=== PATIENT | female | born 1960 | race Caucasian/White ===

== ENCOUNTER 2017-07-02 12:25 | Inpatient (IN) | payer MEDICARE, MEDICAID, SELFPAY ==
[2017-07-02] VITALS (7 sets, daily range): BP systolic 153–182; BP diastolic 64–106; PULSE 99–136; RESP 17–22; TEMP 36.7–36.9; O2SAT 96–98; BMI 37.9; BMI 33.6
--- NOTE | 2017-07-02 12:42 | EKG12_ITS ---
Test Reason : CONFUSION Blood Pressure : / mmHG Vent. Rate : 124 BPM Atrial Rate : 125 BPM P-R Int : 104 ms QRS Dur : 086 ms QT Int : 422 ms P-R-T Axes : 025 -10 102 degrees QTc Int : 606 ms Sinus tachycardia with short [place] ST & T wave abnormality, consider lateral ischemia Abnormal ECG Confirmed by SAMMI GAY, JACQUES ([id number]), editor magazine IRIS TAYLOR ([id number]) on 07/05/2017 10:39:13 AM Referred By: Leonidas Guaman Confirmed By:JACQUES CHAPA MD
[2017-07-02 13:40] LABS: ALB/GLOB Ratio 0.4 RATIO (0.9-2.4); AST(SGOT) 157 U/L (15-37); Alanine Aminotransfer ALT/SGPT 63 U/L (12-78); Albumin, Serum 2.2 g/dL (3.4-5.0); Alkaline Phosphatase 164 U/L (45-117); Anion Gap 10 (5-15); BUN 15 mg/dL (7-18); BUN/Creat Ratio 12.7 RATIO (10-20); Calcium,Total 7.9 mg/dL (8.5-10.1); Chloride 115 mmol/L (98-107); Creatinine, Serum 1.18 mg/dL (0.55-1.02); EST Glomerular Filtration Rate 50 mL/min (>60); Est Glom Filt Rate - Afr Amer 60 mL/min (>60); Estimated Creatinine Clearance 42.46 ml/min; Globulin 5.2 g/dL (2.2-4.2); Glucose 99 mg/dL (70-110); Potassium 4.2 mmol/L (3.5-5.1); Protein, Total 7.4 g/dL (6.4-8.2); Sodium Level 145 mmol/L (136-145)
[2017-07-02] MEDS: Lactulose 20 GM/30 ML UDC 30 GM PO ×3 (14:04→21:59)
[2017-07-02 14:05] LABS: Absolute Lymphocyte Count 0.34 X10^3/ul (0.83-4.51); Absolute Neutrophil Count 2.4 X10^3/uL (2.0-7.7); Basophil# 0.01 X10^3/uL; Basophil% 0.3 % (0-1); Eosinophil# 0.03 X10^3/uL; Hematocrit 31.3 % (37-47); Hemoglobin 10.3 g/dl (12.0-15.0); Lymphocyte # 0.34 X10^3/ul (4.0); Lymphocyte % 11.7 % (19-41); Mean Corp Hgb Conc 32.9 g/gl (32-36); Mean Corpuscular Hgb 30.1 pg (27.0-32.0); Mean Corpuscular Volume 91.5 fL (81-99); Monocyte# 0.16 X10^3/uL; Monocyte% 5.5 % (0-10); Neutrophil # 2.36 X10^3/uL (2.7-7.7); Neutrophil % 81.5 % (47-70); RBC Distribution Width CV 15.8 % (11.6-14.6); RBC Distribution Width SD 52.8 fl (35.1-43.9); Red Blood Count 3.42 M/mm3 (4.2-5.4); White Blood Count 2.9 K/mm3 (4.4-11.0)
[2017-07-02] MEDS: 0.9% Normal Saline 1,000 ML 150 ML IV (14:05)
[2017-07-02 14:06] LABS: Differential Indicated SCAN CRITERIA MET; POSITIVE COUNT YES; POSITIVE DIFFERENTIAL YES; POSITIVE MORPHOLOGY NO
[2017-07-02 14:07] LABS: Platelet Count 40 K/mm3 (150-450)
[2017-07-02 14:17] LABS: Differential Comment SCANNED; Platelet Estimate MOD DEC (ADEQ)
[2017-07-02] MEDS: Ondansetron 4 MG/2 ML Vial IV (14:22)
--- NOTE | 2017-07-02 15:12 | ED.VISSUMM ---
- ER Visit Summary Date of Service: 07/02/17 Chief Complaint: [Confusion] History of Present Illness: The patient is a 57 F [presents to the emergency department with her daughter with complaint of increased confusion this morning. Patient has a history of autoimmune hepatitis and cirrhosis of the liver with history of hepatic encephalopathy. Patient has been taking her medications regularly. Patient has been seen in this ER multiple times for similar complaint with hepatic encephalopathy. Patient has not had a fever or recent illness. Patient denies any abdominal pain. Patient denies headache or chest pain.] Physical Examination: [HEENT-PERRLA, EOMI. Cranial nerves II through XII grossly intact. TMs clear. Mucous membranes moist. No adenopathy. Cardiovascular-regular rate and rhythm without murmur or ectopy Lungs-clear to auscultation, chest wall stable without crepitus or subcu emphysema Abdomen-normoactive bowel sounds, soft, nontender, no rebound or rigidity, no peritoneal signs. Extremities-intact ?4, normal range of motion, normal pulses, atraumatic] Test Results: [CBC with differential showed a pancytopenia with a white blood cell count of 2.9, hemoglobin 10, hematocrit 31, platelet is 40. Chemistries were unremarkable. Ammonia was 131. Troponin was less than 0.02. LFTs unremarkable.] Emergency Department Course and Treatment: [Patient received lactulose 30 g p.o. An IV line was established with normal saline at 125 cc an hour.] Treatment Plan: Plan will be to admit patient [] Disposition: [Admit] Impression: [Hepatic encephalopathy] This note was generated with [employer] dictation software. It may contain incorrect words, spelling, and punctuation that were not noted in review of the chart prior to signing ED Disposition - Plan for ED Patient: Chief Complaint: Confusion Referrals: Ayesha Vieyra MD [Primary Care Provider] -
--- NOTE | 2017-07-02 15:44 | PCM.HP.STD ---
Problem List (1) Hepatic encephalopathy Status: Acute (2) HLD (hyperlipidemia) Status: Chronic (3) HTN (hypertension) Status: Chronic (4) CKD (chronic kidney disease) stage 3, GFR 30-59 ml/min Status: Chronic (5) Asthma Status: Chronic (6) Cirrhosis of liver Status: Chronic Qualifiers: Comment: due to autoimmune hepatitis Portal hypertension status post TIPS procedure Ascites, paracentesis twice a week Pancytopenia Hepatic encephalopathy mild coagulopathy (7) Immunocompromised patient Status: Chronic Comment: on steroids for autoimmune hepatitis (8) Pancytopenia Status: Chronic (9) S/P TIPS (transjugular intrahepatic portosystemic shunt) Status: Chronic (10) Anemia Status: Chronic Qualifiers: (11) CKD (chronic kidney disease) stage 3, GFR 30-59 ml/min Status: Chronic Comment: stg 2-3 (12) Autoimmune hepatitis Status: Chronic History of Present Illness Date of Admission: 07/02/17 Chief Complaint: confusion The patient is a 57 year old F with history of autoimmune hepatitis, status post TIPS procedure, multiple admissions for hepatic encephalopathy, cirrhosis, pancytopenia, hyperlipidemia, hypertension, asthma, CKD 3 who presented to the emergency room with worsening of confusion at home today. She lives with her daughter who is her primary caregiver. Daughter reported that yesterday she was behaving normally, not confused at all, fully independent on her own. This morning at about 630 she seemed more confused and like her encephalopathy was worsening. She refused to take her lactulose today. Since her last admission in May 2017 for the same, she has been having intermittent confused episodes at home. When this happens her daughter gives her an extra dose of lactulose and they resolve on their own. Per her sap bw consultant the goal is 4-5 loose bowel movements per day, lately she has been having about 2 well-formed bowel movements per day. During the interview the patient was shaking uncontrollably, had her eyes closed refused to open them, only answering no to questions. She did respond yes when asked if she was cold. She denies any headache, dizziness, chest pain, racing, shortness of breath, cough, abdominal pain. She was incontinent of loose stool twice in the ER already after receiving a dose of lactulose at her daughter was able to give her. On reexamining later she was more alert sitting up with her eyes open and speaking to her daughter. [] Past Medical History Past Medical History (Chronic Problems): Chronic Problems HLD (hyperlipidemia) (Chronic) HTN (hypertension) (Chronic) CKD (chronic kidney disease) stage 3, GFR 30-59 ml/min (Chronic) Asthma (Chronic) 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 Portal hypertension status post TIPS procedure Ascites, paracentesis twice a week Pancytopenia Hepatic encephalopathy mild coagulopathy Immunocompromised patient (Chronic) on steroids for autoimmune hepatitis Pancytopenia (Chronic) 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) Anemia (Chronic) CKD (chronic kidney disease) stage 3, GFR 30-59 ml/min (Chronic) stg 2-3 Steroid dependence (Chronic) Current dose 10 mg prednisone daily, on long-term weaning Autoimmune hepatitis (Chronic) Diarrhea (Chronic) lactulose dependent Allergies amoxicillin Allergy (Verified 07/02/17 12:33) Hives Fish Containing Products Allergy (Verified 07/02/17 12:33) Rash Iodinated Contrast- Oral and IV Dye [Iodinated Contrast Media - IV Dye] Allergy (Verified 07/02/17 12:33) Rash Penicillins [PCN] Allergy (Verified 07/02/17 12:33) Hives Home Medications: Ambulatory Orders Medication Instructions Recorded Albuterol Inhaler [Ventolin Hfa] 2 puff INHALATION Q6H PRN PRN 06/21/16 Atorvastatin Calcium [Lipitor] 40 mg PO QHS 06/21/16 Azathioprine [Imuran] 50 mg PO DAILY@0800 06/21/16 Calcium Carb/Vitamin D3/Vit K1 1 each PO DAILY 06/21/16 [Citracal Soft Chew] Cholecalciferol (Vitamin D3) 50,000 unit PO DAILY 06/21/16 [Vitamin D3] Cyanocobalamin (Vitamin B-12) 50,000 mcg PO QWEEK 06/21/16 [Vitamin B-12] Ferrous Sulfate 325 mg PO DAILY@0800 06/21/16 Lactulose [Chronulac] 60 ml PO BID 06/21/16 Metoprolol Tartrate [Lopressor 25 mg PO BID 06/21/16 (beta harshil)] Ondansetron [Zofran Odt] 8 mg PO Q8H PRN PRN 06/21/16 Pantoprazole Sodium [Protonix] 40 mg PO DAILY 06/21/16 Rifaximin [Xifaxan] 550 mg PO BID 06/21/16 Sodium Bicarbonate 1,300 mg PO BID 06/21/16 Spironolactone [Aldactone] 100 mg PO DAILY 06/21/16 Zinc 50 mg PO DAILY 06/21/16 Melatonin 3 mg PO QHS 09/04/16 Furosemide [Lasix] 40 mg PO DAILY 11/02/16 TraMADol [Ultram] 50 mg PO BID PRN PRN 02/14/17 Surgical History: tonsillectomy, - - TIPS. Psychiatric History: No pertinent psych hx CRUSHER TENDER History: No pertinent CRUSHER TENDER history Lives: With Family Smoking Status: Never smoker Tobacco Use: Non-smoker Alcohol: None Drugs: None - *Family History Maternal History Items: No pertinent history, - - unable to obtain as patient is confused. Paternal History Items: No pertinent history, - - unable to obtain as patient is confused. Review of Systems Constitutional: Reports: Chills, - - All over shaking. Denies: Fever, Weight Change HEENT: Denies: Head Aches, Sinus Congestion, Sinus Drainage Cardiovascular: Denies: Chest Pain, Palpitations Respiratory: Denies: Cough, Shortness of breath at rest, Sputum production Gastrointestinal: Denies: Abdominal Pain, Nausea, Vomiting Genitourinary: Denies: Dysuria Musculoskeletal: Denies: Joint Pain, Joint Tenderness Skin: Denies: Rash, Wounds Neurological: Reports: Confusion. Denies: Focal weakness, Numbness, Tingling Psychiatric: Denies: Anxiety, Depression, Homicidal Ideations, Suicidal Ideations Hematologic/ Lymphatic: Denies: Easy Bruising, Easy Bleeding VTE Information - Inpt Only VTE Present on Admission: No VTE Mechan Device Prophylaxis: SCD's VTE Pharm Prophylaxis ordered?: No Reason prophylaxis not ordered:: Medical Contraindication - Physical Exam General: Alert, Oriented x3, Cooperative, - - Refuses to open eyes, turns away when an attempt to open her eyes. HEENT: Atraumatic, PERRLA, EOMI, Normocephalic Neck: Supple, No JVD, Negative Carotid Bruits Lungs: Clear to auscultation, Normal air movement Cardiovascular: Regular rate, Murmur - 3 out of 6 systolic murmur best heard over the left sternal border, Tachycardic Abdomen: Bowel Sounds Present, Soft, Non Tender Extremities: No edema, Capillary Refill Less than 3 Seconds Skin: No rashes, No breakdown Musculoskeletal: No Tenderness to Palpation of Joints or Extremities Neurological: Cranial nerves II-XII grossly intact Psych/Mental Status: Normal Affect, Appropriate, Alert and oriented to time, place, person, mood and affect Vital Signs Temp Pulse Resp BP Pulse Ox 98.4 F 119 H 17 157/67 H 97 07/02/17 12:31 07/02/17 15:34 07/02/17 15:34 07/02/17 15:34 07/02/17 15:34 Oxygen Delivery Method Room Air Weight: 97.2 kg Body Mass Index (BMI) 37.9 Finger Stick Blood Glucose 108 Laboratory Tests Past 24 Hrs 07/02/17 07/02/17 07/02/17 13:10 13:10 13:10 WBC Cancelled Corrected WBC Cancelled RBC Cancelled Hgb Cancelled Hct Cancelled MCV Cancelled MCH Cancelled MCHC Cancelled RDW Cancelled RDW Differential Cancelled Plt Count Cancelled MPV Cancelled Immature Gran % (Auto) Cancelled Neut % (Auto) Cancelled Lymph % (Auto) Cancelled [place] % (Auto) Cancelled Eos % (Auto) Cancelled Baso % (Auto) Cancelled Absolute Neuts (auto) Cancelled Absolute Lymphs (auto) Cancelled Total Counted Cancelled Neutrophils % (Manual) Cancelled Band Neutrophils % Cancelled Lymphocytes % (Manual) Cancelled Monocytes % (Manual) Cancelled Eosinophils % (Manual) Cancelled Basophils % (Manual) Cancelled Metamyelocytes % Cancelled Myelocytes % Cancelled Promyelocytes % Cancelled Blast Cells % Cancelled Plasma Cell % (Manual) Cancelled Other Cells % Cancelled Nucleated RBCs/100 WBC Cancelled Differential Comment Cancelled Diff Path Review Cancelled Hypersegmented Neuts Cancelled Atypical Lymphocytes Cancelled Reactive Lymphocytes Cancelled Smudge Cells Cancelled Toxic Granulation Cancelled Dohle Bodies Cancelled Evelyn Rods Cancelled Platelet Estimate Cancelled Plt Morphology Comment Cancelled RBC Morphology Cancelled Polychromasia Cancelled Hypochromasia Cancelled Poikilocytosis Cancelled Basophilic Stippling Cancelled Anisocytosis Cancelled Microcytosis Cancelled Macrocytosis Cancelled Spherocytes Cancelled Sickle Cells Cancelled Target Cells Cancelled Tear Drop Cells Cancelled Ovalocytes Cancelled Stomatocytes Cancelled [place] Bodies Cancelled [place] Cells Cancelled Bite Cells Cancelled Acanthocytes (Spur) Cancelled Rouleaux Cancelled Schistocytes Cancelled Sodium 145 Potassium 4.2 Chloride 115 H Carbon Dioxide 20.0 L Anion Gap 10 BUN 15 Creatinine 1.18 H Estim Creat Clear Calc 42.46 Est GFR (MDRD) Af Amer 60 Est GFR (MDRD) Non-Af 50 L BUN/Creatinine Ratio 12.7 Glucose 99 Calcium 7.9 L Total Bilirubin 2.90 H AST 157 H ALT 63 Alkaline Phosphatase 164 H Ammonia 131.0 H Troponin I < 0.02 Total Protein 7.4 Albumin 2.2 L Globulin 5.2 H Albumin/Globulin Ratio 0.4 L 07/02/17 13:55 WBC 2.9 L Corrected WBC RBC 3.42 L Hgb 10.3 L Hct 31.3 L MCV 91.5 MCH 30.1 MCHC 32.9 RDW 15.8 H RDW Differential 52.8 H Plt Count 40 L* MPV 9.0 Immature Gran % (Auto) 0.000 Neut % (Auto) 81.5 H Lymph % (Auto) 11.7 L [place] % (Auto) 5.5 Eos % (Auto) 1.0 Baso % (Auto) 0.3 Absolute Neuts (auto) 2.4 Absolute Lymphs (auto) 0.34 L Total Counted Not Reportable Neutrophils % (Manual) Band Neutrophils % Lymphocytes % (Manual) Monocytes % (Manual) Eosinophils % (Manual) Basophils % (Manual) Metamyelocytes % Myelocytes % Promyelocytes % Blast Cells % Plasma Cell % (Manual) Other Cells % Nucleated RBCs/100 WBC Differential Comment SCANNED Diff Path Review May foll Hypersegmented Neuts Atypical Lymphocytes Reactive Lymphocytes Smudge Cells Toxic Granulation Dohle Bodies Evelyn Rods Platelet Estimate MOD DEC Plt Morphology Comment RBC Morphology Polychromasia Hypochromasia Poikilocytosis Basophilic Stippling Anisocytosis Microcytosis Macrocytosis Spherocytes Sickle Cells Target Cells Tear Drop Cells Ovalocytes Stomatocytes [place] Bodies Kenny Cells Bite Cells Acanthocytes (Spur) Rouleaux Schistocytes Sodium Potassium Chloride Carbon Dioxide Anion Gap BUN Creatinine Estim Creat Clear Calc Est GFR (MDRD) Af Amer Est GFR (MDRD) Non-Af BUN/Creatinine Ratio Glucose Calcium Total Bilirubin AST ALT Alkaline Phosphatase Ammonia Troponin I Total Protein Albumin Globulin Albumin/Globulin Ratio Assessment/Plan 1. Acute recurrent hepatic encephalopathy secondary to autoimmune hepatitis and cirrhosis-ammonia 131-at last discharge just over 1 month ago for the same it was 44. Multiple admissions for the same. Patient had refused to take lactulose today however was able to leave convince to take it in the ER and is now moving her bowels and appears to be more alert. She likely was not getting high enough dose of lactulose at home as she was having 2 well-formed bowel movements per day and per the daughter she is post be having 4-5 loose movements per day. Plan to increase home dose. Continue rifaximin. Abdominal exam is benign. 2. Marked hypertension-continue home meds. As needed hydralazine if needed. 3. Pancytopenia-chronic secondary to liver disease. Avoid heparin products at this time. Continue iron supplements. 4. CKD 3-appears to be at baseline 5. Hyperlipidemia-on statin therapy 6. History of asthma-no respiratory complaints at this time DVT prophylaxis: SCDs DC planning: Patient is independent and functional at home, with the help of her daughter. This patient was seen by Art Lane PA-C under the supervision of Doctor Warren.
[2017-07-02] MEDS: Ondansetron ODT 4 MG Tablet 8 MG PO (18:32)
[2017-07-02] MEDS: 0.9% Normal Saline 1,000 ML 75 ML IV (18:33)
[2017-07-02] MEDS: MELATONIN 3 MG TABLET PO (21:58)
[2017-07-02] MEDS: Sodium Bicarbonate 650 MG Tablet 1300 MG PO (21:59)
[2017-07-02] MEDS: Atorvastatin Calcium 40 MG Tablet PO (21:59)
[2017-07-02] MEDS: rifAXIMin 550 MG Tablet PO (21:59)
[2017-07-02] MEDS: Metoprolol Tartrate 25 MG Tablet PO (21:59)
--- NOTE | 2017-07-02 23:49 | NURSING ---
MARKING MACHINE TENDER reported to this nurse that patient felt feverish, was sweating and complaining of being cold. Temperature taken, 98.1. Will continue to monitor.
[2017-07-03] VITALS (8 sets, daily range): BP systolic 100–137; BP diastolic 44–67; PULSE 64–89; RESP 16–20; TEMP 36.6–37.3; O2SAT 95–98
[2017-07-03] MEDS: Lactulose 20 GM/30 ML UDC 30 GM PO ×5 (02:05→18:21)
[2017-07-03] MEDS: 0.9% Normal Saline 1,000 ML 75 ML IV ×2 (06:13→18:30)
[2017-07-03 06:33] LABS: Absolute Lymphocyte Count 0.69 X10^3/ul (0.83-4.51); Absolute Neutrophil Count 2.1 X10^3/uL (2.0-7.7); Basophil# 0.01 X10^3/uL; Basophil% 0.3 % (0-1); Eosinophil# 0.07 X10^3/uL; Eosinophils% 2.2 % (0-5); Hematocrit 25.5 % (37-47); Hemoglobin 8.3 g/dl (12.0-15.0); Lymphocyte # 0.69 X10^3/ul (4.0); Lymphocyte % 21.8 % (19-41); Mean Corp Hgb Conc 32.5 g/gl (32-36); Mean Corpuscular Hgb 30.2 pg (27.0-32.0); Mean Corpuscular Volume 92.7 fL (81-99); Mean Platelet Vol. 8.6 fl (6.2-12.0); Monocyte# 0.31 X10^3/uL; Monocyte% 9.8 % (0-10); Neutrophil # 2.09 X10^3/uL (2.7-7.7); Neutrophil % 65.9 % (47-70); RBC Distribution Width CV 16.5 % (11.6-14.6); RBC Distribution Width SD 54.9 fl (35.1-43.9); Red Blood Count 2.75 M/mm3 (4.2-5.4); White Blood Count 3.2 K/mm3 (4.4-11.0)
[2017-07-03 06:34] LABS: Differential Indicated SCAN CRITERIA MET; POSITIVE COUNT YES; POSITIVE DIFFERENTIAL NO; POSITIVE MORPHOLOGY NO
[2017-07-03 06:35] LABS: Platelet Count 26 K/mm3 (150-450)
[2017-07-03 06:39] LABS: Anion Gap 7 (5-15); BUN 16 mg/dL (7-18); BUN/Creat Ratio 12.7 RATIO (10-20); Calcium,Total 7.4 mg/dL (8.5-10.1); Chloride 119 mmol/L (98-107); Creatinine, Serum 1.26 mg/dL (0.55-1.02); EST Glomerular Filtration Rate 46 mL/min (>60); Est Glom Filt Rate - Afr Amer 56 mL/min (>60); Estimated Creatinine Clearance 41.51 ml/min; Glucose 94 mg/dL (70-110); Potassium 3.5 mmol/L (3.5-5.1); Sodium Level 147 mmol/L (136-145)
[2017-07-03 06:56] LABS: Differential Comment SCANNED
[2017-07-03] MEDS: azaTHIOprine 50 MG Tablet PO (09:29)
[2017-07-03] MEDS: Spironolactone 50 MG Tablet 100 MG PO (09:30)
[2017-07-03] MEDS: Sodium Bicarbonate 650 MG Tablet 1300 MG PO ×2 (09:31→21:37)
[2017-07-03] MEDS: Pantoprazole Sodium 40 MG Tablet PO (09:31)
[2017-07-03] MEDS: Furosemide 40 MG Tablet PO (09:31)
[2017-07-03] MEDS: Metoprolol Tartrate 25 MG Tablet PO ×2 (09:32→21:37)
[2017-07-03] MEDS: rifAXIMin 550 MG Tablet PO ×2 (09:32→21:37)
--- NOTE | 2017-07-03 12:29 | PN_ITS ---
Subjective: Pt is in chair at bedside, much more alert and responsive. She feels back to her normal self and her daughter is happy with her improvement stating that last night she began to behave more normally. She has had multiple watery BMs this AM, at least 5 already. She has no nausea, vomiting, or abdominal pain. - Physical Exam General: Alert, Oriented x3, Cooperative HEENT: Atraumatic, PERRLA, EOMI, Normocephalic Neck: Supple, No JVD, Negative Carotid Bruits Lungs: Clear to auscultation, Normal air movement Cardiovascular: Regular rate, No murmurs Abdomen: Bowel Sounds Present, Soft, Non Tender Extremities: No edema, Capillary Refill Less than 3 Seconds Skin: No rashes, No breakdown Musculoskeletal: No Tenderness to Palpation of Joints or Extremities Neurological: Cranial nerves II-XII grossly intact Psych/Mental Status: Normal Affect, Appropriate Vital Signs Temp Pulse Resp BP Pulse Ox 98.3 F 71 20 H 118/60 96 07/03/17 09:15 07/03/17 09:45 07/03/17 09:45 07/03/17 09:32 07/03/17 09:15 Oxygen Delivery Method Room Air Weight: 90.265 kg Body Mass Index (BMI) 33.6 Intake and Output for Last 24 Hours 07/01/17 07/02/17 07/03/17 23:59 23:59 23:59 Intake Total 854 / 854 858 / 858 Balance 854 / 854 858 / 858 Laboratory Tests Past 24 Hrs 07/03/17 07/03/17 07/03/17 06:00 06:00 06:00 WBC 3.2 L RBC 2.75 L Hgb 8.3 L Hct 25.5 L MCV 92.7 MCH 30.2 MCHC 32.5 RDW 16.5 H RDW Differential 54.9 H Plt Count 26 L* MPV 8.6 Immature Gran % (Auto) 0.000 Neut % (Auto) 65.9 Lymph % (Auto) 21.8 [place] % (Auto) 9.8 Eos % (Auto) 2.2 Baso % (Auto) 0.3 Absolute Neuts (auto) 2.1 Absolute Lymphs (auto) 0.69 L Total Counted Not Reportable Differential Comment SCANNED Diff Path Review May foll Sodium 147 H Potassium 3.5 Chloride 119 H Carbon Dioxide 21.0 Anion Gap 7 BUN 16 Creatinine 1.26 H Estim Creat Clear Calc 41.51 Est GFR (MDRD) Af Amer 56 L Est GFR (MDRD) Non-Af 46 L BUN/Creatinine Ratio 12.7 Glucose 94 Calcium 7.4 L Ammonia 51.0 H Assessment/Plan 1. Acute recurrent hepatic encephalopathy secondary to autoimmune hepatitis and cirrhosis- she had refused her lactulose at home. ammonia 131 improved dramatically overnight with stabilization of mental status. pt was able to be given oral lactulose in the ER and after arrival to the floor. She is close to baseline. Will decrease lactulose as she is having many watery bowel movements. Her goal per her GI is 4-5 loose stools per day. She had only been having about 2 well formed stools per day. Reiterated this need to the daughter and patient today. 2. Marked hypertension-continue home meds. As needed hydralazine if needed. 3. Pancytopenia-chronic secondary to liver disease. Avoid heparin products. Continue iron supplements. Repeat CBC in AM. 4. CKD 3-appears to be at baseline 5. Hyperlipidemia-on statin therapy 6. History of asthma-no respiratory complaints at this time DVT prophylaxis: SCDs DC planning: Patient is independent and functional at home, with the help of her daughter. This patient was seen by Art Lane PA-C under the supervision of Doctor Warren.
--- NOTE | 2017-07-03 20:34 | NUR.TO.PHY ---
Patient stated she did not want her 2200 dosing of lactulose. Education to both patient and daughter provided, but patient and daughter both did not wish for her to have this dosing. Further education was provided but both were unreceptive and Daughter stated that patient's normal was different from other people.
[2017-07-03] MEDS: Nystatin Powder 15gm Bottle 1 APPLIC TOPICAL (21:37)
[2017-07-03] MEDS: MELATONIN 3 MG TABLET PO (21:37)
[2017-07-03] MEDS: Menthol/Lanolin/Calamine/Znox 113 GM Tube 1 APPLIC TOPICAL (21:37)
[2017-07-03] MEDS: Atorvastatin Calcium 40 MG Tablet PO (21:38)
[2017-07-04 02:29] VITALS: BP 102/57; PULSE 64; RESP 16; TEMP 37.6; O2SAT 96
[2017-07-04 06:28] LABS: Absolute Lymphocyte Count 0.68 X10^3/ul (0.83-4.51); Absolute Neutrophil Count 1.2 X10^3/uL (2.0-7.7); Basophil# 0.01 X10^3/uL; Basophil% 0.4 % (0-1); Eosinophils% 8.7 % (0-5); Hematocrit 25.3 % (37-47); Lymphocyte # 0.68 X10^3/ul (4.0); Lymphocyte % 29.7 % (19-41); Mean Corp Hgb Conc 31.6 g/gl (32-36); Mean Corpuscular Hgb 30.1 pg (27.0-32.0); Mean Corpuscular Volume 95.1 fL (81-99); Mean Platelet Vol. 9.1 fl (6.2-12.0); Monocyte# 0.25 X10^3/uL; Monocyte% 10.9 % (0-10); Neutrophil # 1.15 X10^3/uL (2.7-7.7); Neutrophil % 50.3 % (47-70); RBC Distribution Width CV 16.8 % (11.6-14.6); RBC Distribution Width SD 58.1 fl (35.1-43.9); Red Blood Count 2.66 M/mm3 (4.2-5.4); White Blood Count 2.3 K/mm3 (4.4-11.0)
[2017-07-04 06:33] LABS: Differential Indicated SCAN CRITERIA MET; POSITIVE COUNT YES; POSITIVE DIFFERENTIAL NO; POSITIVE MORPHOLOGY NO; Platelet Count 29 K/mm3 (150-450)
[2017-07-04] MEDS: 0.9% Normal Saline 1,000 ML 75 ML IV ×2 (06:35→18:26)
[2017-07-04 06:57] LABS: Anisocytosis 2+; Differential Comment SCANNED
[2017-07-04 07:26] VITALS: BP 108/57; PULSE 57; RESP 18; TEMP 36.7; O2SAT 94
[2017-07-04] MEDS: azaTHIOprine 50 MG Tablet PO (08:21)
[2017-07-04] MEDS: Spironolactone 50 MG Tablet 100 MG PO (08:21)
[2017-07-04 08:22] VITALS: BP 108/57; PULSE 57
[2017-07-04] MEDS: Furosemide 40 MG Tablet PO (08:22)
[2017-07-04] MEDS: Metoprolol Tartrate 25 MG Tablet PO (08:22)
[2017-07-04] MEDS: Sodium Bicarbonate 650 MG Tablet 1300 MG PO ×2 (08:22→22:39)
[2017-07-04] MEDS: Nystatin Powder 15gm Bottle 1 APPLIC TOPICAL (08:22)
[2017-07-04] MEDS: rifAXIMin 550 MG Tablet PO ×2 (08:22→22:38)
[2017-07-04] MEDS: Pantoprazole Sodium 40 MG Tablet PO (08:22)
--- NOTE | 2017-07-04 09:52 | CASEMGMT ---
RN SHAUNA Face to Face with patient for initial transition planning/care coordination assessment. RN CM introduced self and role at [facility]. Patient lying in bed, alert and oriented, family at bedside. Patient willing to participate in assessment and is able to answer all questions appropriately. Care providers, pharmacy, and demographics verified. See link attached. Patient wishes to discharge home, denies need for home health at this time. Patient states she has no further needs or concerns at this time. CM to follow for discharge planning needs that may arise. Disposition Plan: Patient to discharge home with family support and follow-up plans in place.
[2017-07-04] MEDS: Lactulose 20 GM/30 ML UDC 30 GM PO ×2 (13:48→18:28)
[2017-07-04] MEDS: Menthol/Lanolin/Calamine/Znox 113 GM Tube 1 APPLIC TOPICAL (13:48)
[2017-07-04 15:03] VITALS: BP 115/61; PULSE 53; RESP 18; TEMP 36.4; O2SAT 99
--- NOTE | 2017-07-04 20:24 | PN_ITS ---
Subjective: Afebrile, vital signs stable, pulse ox on room air is 94-99%. 3 watery BM's today. Dtr [place] feels that she is at her baseline mentally. Ammonia is 78 today, up from 51 on 128 but down from 131 on 127. Prior to admission was having formed bowel movements. Sodium is mildly increased at 147 and the potassium is 3.5 today. BUN is 16 with a creatinine of 1.26. She is pancytopenic with a white blood cell count of 2.3, platelet count of 29,000 and hemoglobin of 8.0 with an MCV of 95.1 and an increased RDW at 16.8. Intake and output are not accurate because urine output is not being measured and she is having liquid stool. Denies any hematemesis or hematochezia. Has not had any iron studies or anemia W/U in the past 2 years at this hospital - Physical Exam General: Alert, Oriented x3, Cooperative, No apparent distress HEENT: Atraumatic, PERRLA, EOMI, Normocephalic Oral: Dry Mucosa Neck: Supple Lungs: Clear to auscultation Cardiovascular: Regular rate, Regular Rhythm, Normal S1, Normal S2, No murmurs, No Gallop Abdomen: Bowel Sounds Present, Soft, Non Tender Extremities: No edema Neurological: Cranial nerves II-XII grossly intact, Neuro grossly intact, - - No asterixis Psych/Mental Status: Normal Affect, Appropriate Vital Signs Temp Pulse Resp BP Pulse Ox 97.5 F L 53 L 18 115/61 99 07/04/17 15:03 07/04/17 15:03 07/04/17 15:03 07/04/17 15:03 07/04/17 15:03 Oxygen Delivery Method Room Air Weight: 199 lb 0.004 oz Body Mass Index (BMI) 33.6 Intake and Output for Last 24 Hours 07/02/17 07/03/17 07/04/17 23:59 23:59 23:59 Intake Total 854 / 854 2337 / 2337 2689 / 2689 Output Total 0 / 0 Balance 854 / 854 2337 / 2337 2689 / 2689 Laboratory Tests Past 24 Hrs 07/04/17 07/04/17 05:25 05:25 WBC 2.3 L RBC 2.66 L Hgb 8.0 L Hct 25.3 L MCV 95.1 MCH 30.1 MCHC 31.6 L RDW 16.8 H RDW Differential 58.1 H Plt Count 29 L* MPV 9.1 Immature Gran % (Auto) 0.000 Neut % (Auto) 50.3 Lymph % (Auto) 29.7 [place] % (Auto) 10.9 H Eos % (Auto) 8.7 H Baso % (Auto) 0.4 Absolute Neuts (auto) 1.2 L Absolute Lymphs (auto) 0.68 L Total Counted Not Reportable Differential Comment SCANNED Diff Path Review May foll Anisocytosis 2+ Ammonia 78.0 H Assessment/Plan Impressions 1. hepatic encephalopathy - acute, recurrent 2. Autoimmune hepatitis with cirrhosis 3. Noncompliance with medication at home at times 4. Pancytopenia 5. Chronic renal failure stage III 6. Hyperlipidemia 7. Asthma 8. Obesity 9. Status post TIPS 10. History of coagulopathy secondary to cirrhosis 11. History of nephrolithiasis Recheck the lab in the AM If the ammonia increases again will need to increase the lactulose so that she has 4-5 loose stools a day Probable DC tomorrow if the mental status remains stable Check a hemoccult stool Code Visit Inpatient E&M: 92689 Subs Hosp L2
[2017-07-04 21:57] LABS: Ferritin 16 ng/mL (8-252); Iron 27 ug/dL (50-170); Iron Binding Capacity,Total 225 ug/dL (250-450)
[2017-07-04 22:00] LABS: Vitamin B12 458 pg/mL (211-911)
[2017-07-04 22:37] VITALS: BP 100/49; PULSE 58; RESP 16; TEMP 36.7; O2SAT 96
[2017-07-04] MEDS: Atorvastatin Calcium 40 MG Tablet PO (22:38)
[2017-07-04] MEDS: MELATONIN 3 MG TABLET PO (22:39)
[2017-07-05 03:08] VITALS: BP 122/70; PULSE 61; RESP 16; TEMP 36.8; O2SAT 95
[2017-07-05 06:02] LABS: Prothrombin Time (Protime)PT. 22.2 SECONDS (11.7-14.9)
[2017-07-05 06:14] LABS: ALB/GLOB Ratio 0.4 RATIO (0.9-2.4); AST(SGOT) 90 U/L (15-37); Alanine Aminotransfer ALT/SGPT 43 U/L (13-56); Albumin, Serum 1.5 g/dL (3.2-5.0); Alkaline Phosphatase 113 U/L (45-117); Anion Gap 7 (5-15); BUN 17 mg/dL (7-18); BUN/Creat Ratio 15.7 RATIO (10-20); Chloride 117 mmol/L (98-107); Creatinine, Serum 1.08 mg/dL (0.55-1.02); EST Glomerular Filtration Rate 55 mL/min (>60); Est Glom Filt Rate - Afr Amer 67 mL/min (>60); Estimated Creatinine Clearance 48.43 ml/min; Globulin 4.1 g/dL (2.2-4.2); Glucose 84 mg/dL (70-110); Magnesium 1.6 mg/dL (1.6-2.6); Potassium 3.5 mmol/L (3.5-5.1); Protein, Total 5.6 g/dL (6.4-8.2); Sodium Level 145 mmol/L (136-145)
[2017-07-05 06:18] LABS: Hematocrit 26.2 % (37-47); Hemoglobin 8.3 g/dl (12.0-15.0); Mean Corp Hgb Conc 31.7 g/gl (32-36); Mean Corpuscular Hgb 30.1 pg (27.0-32.0); Mean Corpuscular Volume 94.9 fL (81-99); Mean Platelet Vol. 12.7 fl (6.2-12.0); RBC Distribution Width CV 16.5 % (11.6-14.6); Red Blood Count 2.76 M/mm3 (4.2-5.4); White Blood Count 2.3 K/mm3 (4.4-11.0)
[2017-07-05 06:37] LABS: Platelet Count 39 K/mm3 (150-450); Scan Indicated on CBC? Y/N YES- FLAGS NOTED
[2017-07-05 07:04] LABS: Differential Comment SCAN
[2017-07-05] MEDS: 0.9% Normal Saline 1,000 ML 75 ML IV (07:56)
[2017-07-05 08:00] VITALS: BP 108/56; PULSE 63; RESP 18; TEMP 36.7; O2SAT 96
[2017-07-05 09:47] LABS: Pathologist Review Reviewed
[2017-07-05 09:51] LABS: Pathologist Review Reviewed
[2017-07-05 10:01] LABS: Pathologist Review Reviewed
[2017-07-05 10:34] VITALS: PULSE 64
[2017-07-05] MEDS: Pantoprazole Sodium 40 MG Tablet PO (10:34)
[2017-07-05] MEDS: rifAXIMin 550 MG Tablet PO (10:34)
[2017-07-05] MEDS: Sodium Bicarbonate 650 MG Tablet 1300 MG PO (10:34)
[2017-07-05] MEDS: Metoprolol Tartrate 25 MG Tablet PO (10:34)
[2017-07-05] MEDS: azaTHIOprine 50 MG Tablet PO (10:35)
[2017-07-05] MEDS: Nystatin Powder 15gm Bottle 1 APPLIC TOPICAL (10:35)
[2017-07-05] MEDS: Lactulose 20 GM/30 ML UDC 30 GM PO (10:35)
[2017-07-05] MEDS: Furosemide 40 MG Tablet PO (10:35)
[2017-07-05] MEDS: Spironolactone 50 MG Tablet 100 MG PO (10:35)
[2017-07-05 10:44] VITALS: BP 105/54; PULSE 64; RESP 16; TEMP 36.6; O2SAT 95
--- NOTE | 2017-07-05 12:24 | PCM.DC ---
- Discharge Diagnoses Current Active Problems: Current Active and Chronic Problems HLD (hyperlipidemia) (Chronic) HTN (hypertension) (Chronic) CKD (chronic kidney disease) stage 3, GFR 30-59 ml/min (Chronic) You will use the following diet at home:: Other - 2 GM sodium Your food should be the consistency of: Regular Your liquids should be the consistency of: Regular/Thin Discharge Activity: Return to Normal Activity, May Not Drive Call your doctor if you observe: Fever of 101 or Higher, Shortness of breath, Swelling in the ankles, Chest pain, - - increased confusion, abdominal pain, nausea/vomiting Additional Instructions: You have been in the hospital 5 times in the past year for confusion due to hepatic encephalopathy due to non-compliance with the Lactulose. Every time you are admitted to the hospital it is documented that you are non-compliant with the medication. You are even non-compliant with taking the medication in the hospital and this is documented in the chart. Some day you will need a liver transplant and if you are non-compliant may may not even be considered for a transplant because you are non-compliant. You MUST take the Lactulose and the Rifaximin as instructed. Pending Tests on Discharge: folate level Allergies/Adverse Reactions: Allergies amoxicillin Allergy (Verified 07/02/17 12:33) Hives Fish Containing Products Allergy (Verified 07/02/17 12:33) Rash Iodinated Contrast- Oral and IV Dye [Iodinated Contrast Media - IV Dye] Allergy (Verified 07/02/17 12:33) Rash Penicillins [PCN] Allergy (Verified 07/02/17 12:33) Hives Medications to take at Discharge Albuterol Inhaler [Ventolin Hfa] 2 puff INHALATION Q6H PRN PRN 06/21/16 Atorvastatin Calcium [Lipitor] 40 mg PO QHS 06/21/16 Azathioprine [Imuran] 50 mg PO DAILY@0800 06/21/16 Calcium Carb/Vitamin D3/Vit K1 [Citracal Soft Chew] 1 each PO DAILY 06/21/16 Cholecalciferol (Vitamin D3) [Vitamin D3] 50,000 unit PO DAILY 06/21/16 Cyanocobalamin (Vitamin B-12) [Vitamin B-12] 50,000 mcg PO QWEEK 06/21/16 Lactulose [Chronulac] 60 ml PO BID 06/21/16 Metoprolol Tartrate [Lopressor (beta harshil)] 25 mg PO BID 06/21/16 Ondansetron [Zofran Odt] 8 mg PO Q8H PRN PRN 06/21/16 Pantoprazole Sodium [Protonix] 40 mg PO DAILY 06/21/16 Rifaximin [Xifaxan] 550 mg PO BID 06/21/16 Sodium Bicarbonate 1,300 mg PO BID 06/21/16 Spironolactone [Aldactone] 100 mg PO DAILY 06/21/16 Zinc 50 mg PO DAILY 06/21/16 Melatonin 3 mg PO QHS 09/04/16 Furosemide [Lasix] 40 mg PO DAILY 11/02/16 TraMADol [Ultram] 50 mg PO BID PRN PRN 02/14/17 Ascorbic Acid [Vitamin C] 500 mg PO BIDCM #60 tab 07/05/17 Ferrous Gluconate 325 mg PO BIDCM #60 tab 07/05/17 The following prescriptions were given: Ascorbic Acid [Vitamin C] 500 mg PO BIDCM #60 tab Ferrous Gluconate 325 mg PO BIDCM #60 tab Primary Care Physician: Ayesha Vieyra MD [Primary Care Provider] - Please follow up with your Primary Care Physician in: 1 week Proposed Discharge Date: 07/05/17
--- NOTE | 2017-07-05 12:41 | PCM.DC.SUM ---
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 She is no longer on steroids and has been transitioned to Azathioprine Autoimmune hepatitis (Chronic) Hospital Course and Treatment Imaging Results: Laboratory Results - last 24 hr 07/02/17 07/03/17 07/04/17 13:55 06:00 05:25 WBC RBC Hgb Hct MCV MCH MCHC RDW RDW Differential Plt Count MPV Differential Comment Diff Path Review Reviewed Reviewed Reviewed PT INR Sodium Potassium Chloride Carbon Dioxide Anion Gap BUN Creatinine Estim Creat Clear Calc Est GFR (MDRD) Af Amer Est GFR (MDRD) Non-Af BUN/Creatinine Ratio Glucose Calcium Phosphorus Magnesium Iron TIBC Iron Saturation Ferritin Total Bilirubin AST ALT Alkaline Phosphatase Total Protein Albumin Globulin Albumin/Globulin Ratio Vitamin B12 TSH Blood Type Antibody Screen 07/04/17 07/04/17 07/04/17 20:57 20:57 20:57 WBC RBC Hgb Hct MCV MCH MCHC RDW RDW Differential Plt Count MPV Differential Comment Diff Path Review PT INR Sodium Potassium Chloride Carbon Dioxide Anion Gap BUN Creatinine Estim Creat Clear Calc Est GFR (MDRD) Af Amer Est GFR (MDRD) Non-Af BUN/Creatinine Ratio Glucose Calcium Phosphorus Magnesium Iron 27 L TIBC 225 L Iron Saturation 12.0 L Ferritin 16 Total Bilirubin AST ALT Alkaline Phosphatase Total Protein Albumin Globulin Albumin/Globulin Ratio Vitamin B12 458 TSH 2.10 Blood Type A POSITIVE Antibody Screen NEGATIVE 07/05/17 07/05/17 07/05/17 05:35 05:35 05:35 WBC 2.3 L RBC 2.76 L Hgb 8.3 L Hct 26.2 L MCV 94.9 MCH 30.1 MCHC 31.7 L RDW 16.5 H RDW Differential 57.0 H Plt Count 39 L* MPV 12.7 H Differential Comment SCAN Diff Path Review October foll PT 22.2 H INR 2.0 Sodium 145 Potassium 3.5 Chloride 117 H Carbon Dioxide 21.0 Anion Gap 7 BUN 17 Creatinine 1.08 H Estim Creat Clear Calc 48.43 Est GFR (MDRD) Af Amer 67 Est GFR (MDRD) Non-Af 55 L BUN/Creatinine Ratio 15.7 Glucose 84 Calcium 7.0 L Phosphorus 3.0 Magnesium 1.6 Iron TIBC Iron Saturation Ferritin Total Bilirubin 1.00 AST 90 H ALT 43 Alkaline Phosphatase 113 Total Protein 5.6 L Albumin 1.5 L Globulin 4.1 Albumin/Globulin Ratio 0.4 L Vitamin B12 TSH Blood Type Antibody Screen none Operations: None Procedures: None Summary of Care Provided: The patient is a 57 year old F with a past medical history of autoimmune hepatitis, cirrhosis, coagulopathy secondary to chronic liver disease, history of a TIPS procedure, hepatic encephalopathy, pancytopenia, renal failure stage III, asthma, hypertension and hyperlipidemia who presented to the emergency room at [facility] on 07/02/2017 with increased confusion. She has been compliant with Lactulose per her dtr except when she is confused and when they have to go to [place] to see the grassland conservationist. She was confused in the ER but her dtr was able to get her to take oral Lactulose. Ammonia level in the emergency room was 131. Total bilirubin was elevated at 2.9 and the AST was 157 with an alk phos of 164. PT is 22.2 with an INR of 2.0. Serum bicarb was 20 and the BUN was 15 with a creatinine of 1.18. She is chronically pancytopenic and the white blood cell count was 2.9 with a hemoglobin of 10.3 and platelet count of 40,000. Hemoglobin did decrease with some gentle hydration and has been stable at 8.3. It has been slowly decreasing over the past year. Hemoccult stool was negative. B12 was WNL. Folate is still pending at the time of DC. Iron studies show a low serum iron at 27, low TIBC at 225 (likely due to protein malnutrition), and a very low ferritin level at 16. Iron saturation is 12%. Platelets and white blood cell count have been stable. She had no fevers during her hospital admission and her vital signs were stable. She improved rapidly once she started having loose bowel movements. She refused 1 dose of lactulose while in the hospital because she was nauseated. She did take her lactulose on the date of discharge. She has a new Workforce Planner and has an appt scheduled in the next 2 weeks. She needs to find a new electrical assembly technician since her previous doctor recently retired. It may be more convenient for her to follow up with a electrical assembly technician in [place] and she was given the contact info for Dr. Huddleston and Dr. Bearden. She was instructed to follow up with Dr. Vieyra in 1 week. She was given a RX for ferrous Gluconate and ascorbic acid at [place]. She is chronically on a PPI and may not be able to absorb oral iron due to acid suppression. I would recheck a H/H and a ferritin in 4 weeks and if the ferritin has not improved she will need IV iron sucrose. This note was generated with TrueView dictation software. It may contain incorrect words, spelling, and punctuation that were not noted in checking the note before signing. Discharge Activity: Return to Normal Activity, May Not Drive Call your doctor if you observe: Fever of 101 or Higher, Shortness of breath, Swelling in the ankles, Chest pain, - - increased confusion, abdominal pain, nausea/vomiting Home Medications: Medications to take at Discharge Albuterol Inhaler [Ventolin Hfa] 2 puff INHALATION Q6H PRN PRN 06/21/16 Atorvastatin Calcium [Lipitor] 40 mg PO QHS 06/21/16 Azathioprine [Imuran] 50 mg PO DAILY@0800 06/21/16 Calcium Carb/Vitamin D3/Vit K1 [Citracal Soft Chew] 1 each PO DAILY 06/21/16 Cholecalciferol (Vitamin D3) [Vitamin D3] 50,000 unit PO DAILY 06/21/16 Cyanocobalamin (Vitamin B-12) [Vitamin B-12] 50,000 mcg PO QWEEK 06/21/16 Lactulose [Chronulac] 60 ml PO BID 06/21/16 Metoprolol Tartrate [Lopressor (beta harshil)] 25 mg PO BID 06/21/16 Ondansetron [Zofran Odt] 8 mg PO Q8H PRN PRN 06/21/16 Pantoprazole Sodium [Protonix] 40 mg PO DAILY 06/21/16 Rifaximin [Xifaxan] 550 mg PO BID 06/21/16 Sodium Bicarbonate 1,300 mg PO BID 06/21/16 Spironolactone [Aldactone] 100 mg PO DAILY 06/21/16 Zinc 50 mg PO DAILY 06/21/16 Melatonin 3 mg PO QHS 09/04/16 Furosemide [Lasix] 40 mg PO DAILY 11/02/16 TraMADol [Ultram] 50 mg PO BID PRN PRN 02/14/17 Ascorbic Acid [Vitamin C] 500 mg PO BIDCM #60 tab 07/05/17 Ferrous Gluconate 325 mg PO BIDCM #60 tab 07/05/17 Following Prescrptions Were Given to Patient: Ascorbic Acid [Vitamin C] 500 mg PO BIDCM #60 tab Ferrous Gluconate 325 mg PO BIDCM #60 tab Primary Care Physician: Ayesha Vieyra MD [Primary Care Provider] - Please follow up with your Primary Care Physician in: 1 week Disposition: Home Minutes spent on discharge:: 30 Patient Condition:: Good Meaningful Use Info Meaningful Use Diagnoses (Choose all that apply): None applicable
[2017-07-05] MEDS: Ondansetron ODT 4 MG Tablet 8 MG PO (12:57)
--- NOTE | 2017-07-05 13:00 | CASEMGMT ---
EDWARD VILLATORO updated by Dr. Covarrubias that patient would like [facility] transport van to transport patient and daughter home. RN SHAUNA spoke with patient and daughter and confirmed address and called [facility] transport. [facility] transport can arrange transportation to home at 14:30 and patient to be in lobby at 1430. Updated patient and daughter regarding transport time. EDWARD VILLATORO updated nurse.
[2017-07-05 16:47] LABS: Pathologist Review Reviewed
[2017-07-06 16:09] LABS: Folate, Hemolysate Test 337.7 ng/mL (Not Estab.); Folate, RBC (Hct) Test 25.4 % (34.0-46.6)
[2017-07-07 12:27] LABS: Folates, RBC Test 1330 ng/mL (>498)
== END 2017-07-05 14:20 | disposition home or self-care (01) | DRG 442 ==
LOC: ED 13:51 → MS3 16:42
PROVIDERS: Admitting Provider Internal Medicine; Emergency Provider Emergency Medicine; Family Provider Internal Medicine; PCP Internal Medicine; Visit Provider Internal Medicine
DX: K72.90 Hepatic failure, unspecified without coma (principal); D61.818 Other pancytopenia; E46 Unspecified protein-calorie malnutrition; K75.4 Autoimmune hepatitis; K74.60 Unspecified cirrhosis of liver; N18.3 Chronic kidney disease, stage 3 (moderate); E78.5 Hyperlipidemia, unspecified; I12.9 Hypertensive chronic kidney disease with stage 1 through stage 4 chronic kidney disease, or unspecified chronic kidney disease; E66.9 Obesity, unspecified; J45.909 Unspecified asthma, uncomplicated; Z68.33 Body mass index [BMI] 33.0-33.9, adult; Z91.14 Patient's other noncompliance with medication regimen; Z87.442 Personal history of urinary calculi; Z79.52 Long term (current) use of systemic steroids
CPT/HCPCS: 36415; 80048; 80053; 82140; 82274; 82607; 82728; 82747; 83540; 83550; 83735; 84100; 84443; 84484; 85014; 85025; 85027; 85610; 86850; 86900; 93005; 97802; 99285; J7030; J2405

== ENCOUNTER 2017-07-12 14:11 | Inpatient (IN) | payer MEDICARE, MEDICAID, SELFPAY ==
[2017-07-12 14:12] VITALS: BP 198/130; PULSE 137; RESP 28; TEMP 36.6; O2SAT 95; BMI 34.4
[2017-07-12 15:47] LABS: Mucous, Urine 0 SEEN /hpf (<or=2+)
[2017-07-12 15:49] LABS: Color, Urine Yellow (Yellow); Glucose, Dipstick Normal (Normal); Ketone-Dipstick Negative (Negative); Leukocyte Esterase-Dipstick 25 /ul (Negative); Nitrite-Dipstick Positive (Negative); Occult Blood-Urine 10 /ul (Negative); Protein-Dipstick Negative (Negative); Specific Gravity, Urine 1.015 (1.002-1.030); Urine Bilirubin Dipstick Negative (Negative); Urine Clarity Sl. Cloudy (Clear); Urine Urobilinogen Normal (Normal)
[2017-07-12 15:51] LABS: Absolute Lymphocyte Count 0.52 X10^3/ul (0.83-4.51); Absolute Neutrophil Count 1.4 X10^3/uL (2.0-7.7); Basophil# 0.01 X10^3/uL; Basophil% 0.5 % (0-1); Eosinophil# 0.05 X10^3/uL; Eosinophils% 2.3 % (0-5); Hematocrit 31.7 % (37-47); Hemoglobin 10.2 g/dl (12.0-15.0); Lymphocyte # 0.52 X10^3/ul (4.0); Lymphocyte % 23.6 % (19-41); Mean Corp Hgb Conc 32.2 g/gl (32-36); Mean Corpuscular Hgb 29.7 pg (27.0-32.0); Mean Corpuscular Volume 92.4 fL (81-99); Mean Platelet Vol. 9.8 fl (6.2-12.0); Monocyte# 0.25 X10^3/uL; Monocyte% 11.4 % (0-10); Neutrophil # 1.37 X10^3/uL (2.7-7.7); Neutrophil % 62.2 % (47-70); RBC Distribution Width CV 16.9 % (11.6-14.6); RBC Distribution Width SD 56.7 fl (35.1-43.9); Red Blood Count 3.43 M/mm3 (4.2-5.4); White Blood Count 2.2 K/mm3 (4.4-11.0)
[2017-07-12 16:01] LABS: International Normalized Ratio 1.7; Prothrombin Time (Protime)PT. 19.2 SECONDS (11.7-14.9)
[2017-07-12 16:03] LABS: Hyaline Cast 0-5 SEEN /lpf (0-5); Squamous Epithelial Cells - UA 0-5 SEEN /hpf (5-10)
[2017-07-12 16:04] LABS: AST(SGOT) 103 U/L (15-37); Alanine Aminotransfer ALT/SGPT 56 U/L (13-56); Albumin, Serum 2.2 g/dL (3.2-5.0); Alkaline Phosphatase 139 U/L (45-117); Anion Gap 7 (5-15); BUN 15 mg/dL (7-18); BUN/Creat Ratio 9.9 RATIO (10-20); Bilirubin, Direct 0.93 mg/dL (0.00-0.30); Calcium,Total 8.2 mg/dL (8.5-10.1); Chloride 113 mmol/L (98-107); Creatinine, Serum 1.51 mg/dL (0.55-1.02); EST Glomerular Filtration Rate 38 mL/min (>60); Est Glom Filt Rate - Afr Amer 45 mL/min (>60); Estimated Creatinine Clearance 34.64 ml/min; Globulin 5.2 g/dL (2.2-4.2); Glucose 96 mg/dL (74-106); Lipase 147 U/L (73-393); Potassium 3.9 mmol/L (3.5-5.1); Protein, Total 7.4 g/dL (6.4-8.2); Sodium Level 144 mmol/L (136-145)
[2017-07-12 16:04] LABS: Bacteria 1+ /hpf (None Seen); Red Blood Cells-Urine 0-5 SEEN /hpf (0-5); White Blood Cells 5-10 SEEN /hpf (0-5)
[2017-07-12 16:06] LABS: Differential Indicated SCAN CRITERIA MET; POSITIVE COUNT YES; POSITIVE DIFFERENTIAL YES; POSITIVE MORPHOLOGY NO; Platelet Count 47 K/mm3 (150-450)
--- NOTE | 2017-07-12 16:07 | ED.RN ---
PLT [address] CALL[address] LAB[address] DR CORRALES AWARE
[2017-07-12 16:23] VITALS: BP 155/89; PULSE 109; RESP 19; O2SAT 97
[2017-07-12 16:28] LABS: Differential Comment SCANNED
[2017-07-12 16:29] LABS: Platelet Estimate MKD DEC (ADEQ)
--- NOTE | 2017-07-12 16:55 | ED.VISSUMM ---
- ER Visit Summary Date of Service: 07/12/17 Chief Complaint: Altered level of consciousness History of Present Illness: The patient is a 57 F has multiple medical problems including hepatic encephalopathy who was brought to the ER by ambulance because of change in mental status noted by daughter. She initially would not speak. When she did speak she was disoriented and at times question the accuracy of what she told me. [place] per old records she has history of autoimmune hepatitis, hypertension, hypercholesterolemia, spontaneous bacterial peritonitis, DVT and iron deficiency anemia. She is status post TIPS procedure. Physical Examination: Vital signs remarkable for elevated blood pressure 198/130 with a heart rate of 137 respiratory 28. She is not febrile. She is disoriented to time and place. Head is atraumatic normocephalic. Pupils are equal round reactive. Extraocular muscles are intact. TMs are pearly white with landmarks noted. Nares patent with no drainage. Posterior pharynx without erythema or exudate. Uvula is midline. There is no dysphonia or dysphasia. Trachea is midline. There is no stridor with auscultation of the neck. Heart is regular without murmur, gallop or rub. S1 and S2 are normal. Lungs are clear to auscultation with good movement of air bilaterally. Abdomen is soft nontender bowel sounds are diminished. She has mild edema of the extremities. There is no rash or lesions noted. She is not oriented as previous documented. Her neuro exam however is nonfocal. Test Results: White count is 2.2 thousand with no shift. H&H 10.2 and 31.7 with a platelet count of 47,000. BMP is marked for creatinine of 1.52. Hepatic reveals elevated ALT of 139. INR is elevated 1.7. Urine is suggestive of infection. Macro was positive for leukoesterase nitrites and blood. Micro reveals 5-10 WBCs 0-5 RBCs and 1+ bacteria. Ammonia level is 82. Emergency Department Course and Treatment: Await patient's altered mental status will undertake infectious and metabolic workup. Treatment Plan: Evidence of UTI and is neutropenic she was started on Rocephin. Because her ammonia level is elevated and uncertain whether this is infectious encephalopathy versus hepatic encephalopathy treated patient with 20 g of lactulose p.o. Disposition: Discussed with hospitalist and she will be admitted to [facility] Impression: 1. Hepatic encephalopathy 2. UTI 3. Sinus tachycardia documented on monitor 4. Pancytopenia 5. Coagulopathy secondary to liver disease This note was generated with Dr. Z dictation software. It may contain incorrect words, spelling, and punctuation that were not noted in review of the chart prior to signing ED Disposition - Plan for ED Patient: Chief Complaint: Alt LOC Referrals: Ayesha Vieyra MD [Primary Care Provider] -
--- NOTE | 2017-07-12 16:59 | ED.DCSUM_ITS ---
- ER Visit Summary Date of Service: 07/12/17 Chief Complaint: Altered level of consciousness History of Present Illness: The patient is a 57 F has multiple medical problems including hepatic encephalopathy who was brought to the ER by ambulance because of change in mental status noted by daughter. She initially would not speak. When she did speak she was disoriented and at times question the accuracy of what she told me. [place] per old records she has history of autoimmune hepatitis , hypertension, hypercholesterolemia, spontaneous bacterial peritonitis, DVT and iron deficiency anemia. She is status post TIPS procedure. Physical Examination: Vital signs remarkable for elevated blood pressure 198/ 130 with a heart rate of 137 respiratory 28. She is not febrile. She is disoriented to time and place. Head is atraumatic normocephalic. Pupils are equal round reactive. Extraocular muscles are intact. TMs are pearly white with landmarks noted. Nares patent with no drainage. Posterior pharynx without erythema or exudate. Uvula is midline. There is no dysphonia or dysphasia. Trachea is midline. There is no stridor with auscultation of the neck. Heart is regular without murmur, gallop or rub. S1 and S2 are normal. Lungs are clear to auscultation with good movement of air bilaterally. Abdomen is soft nontender bowel sounds are diminished. She has mild edema of the extremities. There is no rash or lesions noted. She is not oriented as previous documented. Her neuro exam however is nonfocal. Test Results: White count is 2.2 thousand with no shift. H&H 10.2 and 31.7 with a platelet count of 47,000. BMP is marked for creatinine of 1.52. Hepatic reveals elevated ALT of 139. INR is elevated 1.7. Urine is suggestive of infection. Macro was positive for leukoesterase nitrites and blood. Micro reveals 5-10 WBCs 0-5 RBCs and 1+ bacteria. Ammonia level is 82. Emergency Department Course and Treatment: Await patient's altered mental status will undertake infectious and metabolic workup. Treatment Plan: Evidence of UTI and is neutropenic she was started on Rocephin. Because her ammonia level is elevated and uncertain whether this is infectious encephalopathy versus hepatic encephalopathy treated patient with 20 g of lactulose p.o. Disposition: Discussed with hospitalist and she will be admitted to [facility] Impression: 1. Hepatic encephalopathy 2. UTI 3. Sinus tachycardia documented on monitor 4. Pancytopenia 5. Coagulopathy secondary to liver disease This note was generated with Open[employer] dictation software. It may contain incorrect words, spelling, and punctuation that were not noted in review of the chart prior to signing ED Disposition - Plan for ED Patient: Chief Complaint: Alt LOC Referrals: Ayesha Vieyra MD [Primary Care Provider] -
[2017-07-12 17:02] VITALS: BMI 34.5
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
[2017-07-12] MEDS: Lactulose 20 GM/30 ML UDC PO (17:25)
[2017-07-12 17:51] VITALS: BP 131/81; PULSE 101; RESP 16; O2SAT 96
[2017-07-12 18:28] VITALS: BMI 32.9
[2017-07-12 20:10] VITALS: PULSE 88; RESP 18; O2SAT 100
[2017-07-12 20:31] VITALS: BP 143/81; PULSE 88; RESP 18; TEMP 36.7; O2SAT 100
[2017-07-12 21:46] VITALS: BP 143/81; PULSE 88
[2017-07-12] MEDS: Metoprolol Tartrate 25 MG Tablet PO (21:46)
[2017-07-12] MEDS: MELATONIN 3 MG TABLET PO (21:46)
[2017-07-12] MEDS: Sodium Bicarbonate 650 MG Tablet 1300 MG PO (21:46)
[2017-07-12] MEDS: Atorvastatin Calcium 40 MG Tablet PO (21:46)
[2017-07-12] MEDS: Ondansetron ODT 4 MG Tablet 8 MG PO (22:21)
[2017-07-12] MEDS: Lactulose 20 GM/30 ML UDC 30 GM PO (23:31)
[2017-07-12] MEDS: 0.9% NaCl Peripheral Flush Adult/Peds IV (23:31)
[2017-07-13] VITALS (7 sets, daily range): BP systolic 102–119; BP diastolic 48–65; PULSE 61–74; RESP 18; TEMP 36.2–36.9; O2SAT 95–100
[2017-07-13] MEDS: Lactulose 20 GM/30 ML UDC 30 GM PO ×3 (05:37→17:33)
[2017-07-13 08:21] LABS: Absolute Lymphocyte Count 0.64 X10^3/ul (0.83-4.51); Absolute Neutrophil Count 1.3 X10^3/uL (2.0-7.7); Basophil# 0.01 X10^3/uL; Basophil% 0.4 % (0-1); Eosinophil# 0.12 X10^3/uL; Eosinophils% 5.1 % (0-5); Hematocrit 27.4 % (37-47); Hemoglobin 8.7 g/dl (12.0-15.0); Lymphocyte # 0.64 X10^3/ul (4.0); Lymphocyte % 27.1 % (19-41); Mean Corp Hgb Conc 31.8 g/gl (32-36); Mean Corpuscular Hgb 29.9 pg (27.0-32.0); Mean Corpuscular Volume 94.2 fL (81-99); Mean Platelet Vol. 8.9 fl (6.2-12.0); Monocyte# 0.27 X10^3/uL; Monocyte% 11.4 % (0-10); Neutrophil # 1.32 X10^3/uL (2.7-7.7); Platelet Count 40 K/mm3 (150-450); RBC Distribution Width CV 16.6 % (11.6-14.6); RBC Distribution Width SD 55.1 fl (35.1-43.9); Red Blood Count 2.91 M/mm3 (4.2-5.4); White Blood Count 2.4 K/mm3 (4.4-11.0)
[2017-07-13 08:22] LABS: Anion Gap 9 (5-15); BUN 15 mg/dL (7-18); Calcium,Total 7.6 mg/dL (8.5-10.1); Chloride 113 mmol/L (98-107); Creatinine, Serum 1.36 mg/dL (0.55-1.02); EST Glomerular Filtration Rate 42 mL/min (>60); Est Glom Filt Rate - Afr Amer 51 mL/min (>60); Estimated Creatinine Clearance 38.46 ml/min; Glucose 101 mg/dL (74-106); Potassium 3.9 mmol/L (3.5-5.1); Sodium Level 145 mmol/L (136-145)
[2017-07-13] MEDS: Pantoprazole Sodium 40 MG Tablet PO (08:47)
[2017-07-13] MEDS: Furosemide 40 MG Tablet 100 MG PO (08:50)
[2017-07-13] MEDS: Sodium Bicarbonate 650 MG Tablet 1300 MG PO ×2 (08:51→22:19)
[2017-07-13] MEDS: Spironolactone 50 MG Tablet 150 MG PO (08:51)
[2017-07-13] MEDS: Metoprolol Tartrate 25 MG Tablet PO ×2 (08:51→22:17)
[2017-07-13] MEDS: azaTHIOprine 50 MG Tablet PO (08:51)
[2017-07-13 09:18] LABS: Differential Indicated SCAN CRITERIA MET; POSITIVE COUNT YES; POSITIVE DIFFERENTIAL NO; POSITIVE MORPHOLOGY NO
[2017-07-13 09:19] LABS: Anisocytosis 1+; Ovalocyte 1+; Platelet Estimate MOD DEC (ADEQ)
[2017-07-13 12:04] LABS: Pathologist Review Reviewed
--- NOTE | 2017-07-13 12:06 | PCM.PROGNOTE ---
<Lorena Verdugo - Last Filed: 07/13/17 12:22> Subjective: Patient seen and examined. Resting comfortably in bed. Daughter at bedside. No confusion noted overnight per patient and daughter. Patient denies nausea, vomiting. Tolerating diet without difficulty. Denies urinary complaints. - Physical Exam General: Alert, Oriented x3, Cooperative, No apparent distress HEENT: Atraumatic, PERRLA, EOMI, Normocephalic Neck: Supple, No JVD, Negative Carotid Bruits Lungs: Clear to auscultation, Diminished Cardiovascular: Regular rate, Regular Rhythm, Normal S1, Normal S2, Murmur Abdomen: Bowel Sounds Present, Soft, Non Tender, Non-Distended, Obese Extremities: No clubbing, No cyanosis, No edema, Capillary Refill Less than 3 Seconds Skin: No rashes, No breakdown Musculoskeletal: No Tenderness to Palpation of Joints or Extremities Neurological: Cranial nerves II-XII grossly intact, Neuro grossly intact Psych/Mental Status: Normal Affect, Appropriate Vital Signs Temp Pulse Resp BP Pulse Ox 97.2 F L 72 18 119/54 L 100 07/13/17 08:43 07/13/17 08:51 07/13/17 08:43 07/13/17 08:43 07/13/17 08:43 Oxygen Delivery Method Room Air Weight: 87.09 kg Body Mass Index (BMI) 32.9 Intake and Output for Last 24 Hours 07/11/17 07/12/17 07/13/17 23:59 23:59 23:59 Intake Total 480 / 480 1885 / 1885 Output Total 1000 / 1000 Balance 480 / 480 885 / 885 Laboratory Tests Past 24 Hrs 07/13/17 07/13/17 07/13/17 07:48 07:48 07:48 WBC 2.4 L RBC 2.91 L Hgb 8.7 L Hct 27.4 L MCV 94.2 MCH 29.9 MCHC 31.8 L RDW 16.6 H RDW Differential 55.1 H Plt Count 40 L* MPV 8.9 Immature Gran % (Auto) 0.000 Neut % (Auto) 56.0 Lymph % (Auto) 27.1 [place] % (Auto) 11.4 H Eos % (Auto) 5.1 H Baso % (Auto) 0.4 Absolute Neuts (auto) 1.3 L Absolute Lymphs (auto) 0.64 L Total Counted Not Reportable Diff Path Review May foll Platelet Estimate MOD DEC Anisocytosis 1+ Ovalocytes 1+ Sodium 145 Potassium 3.9 Chloride 113 H Carbon Dioxide 23.0 Anion Gap 9 BUN 15 Creatinine 1.36 H Estim Creat Clear Calc 38.46 Est GFR (MDRD) Af Amer 51 L Est GFR (MDRD) Non-Af 42 L BUN/Creatinine Ratio 11.0 Glucose 101 Calcium 7.6 L Ammonia 93.0 H Assessment/Plan Patient is a 57-year-old female admitted 07/12/17 due to altered mental status. Her past medical history includes autoimmune hepatitis, cirrhosis, coagulopathy secondary to chronic liver disease, recurrent hepatic encephalopathy, pancytopenia, renal failure stage III, asthma, hypertension, hyperlipidemia, history of TIPS procedure, iron deficiency anemia. 1. Recurrent acute hepatic encephalopathy-underlying autoimmune hepatitis, cirrhosis. Ammonia level 82 on admission. Repeat ammonia 93. Continue lactulose 4 times daily. Patient was previously on Xifaxan which was discontinued due to insurance not covering the medication and high cost. Zofran as needed for nausea. Continue to harshil, Lasix, spironolactone. Trend ammonia. Mental status at baseline. Anticipate discharge home tomorrow if ammonia trends down. 2. Acute cystitis-UA positive for leukocytes and nitrites. Urine culture shows gram-negative floyd. Patient denies urinary symptoms. Afebrile. Previous urine cultures show ESBL. Patient was started on IV meropenem. Infectious disease consulted. Possible colonization? 3. Coagulopathy/pancytopenia secondary to chronic liver disease-stable, continue to monitor. 4. Chronic renal failure stage III-stable, monitor BMP. 5. Chronic asthma-no acute exacerbation. Albuterol aerosol as needed for shortness of breath. 6. Hypertension-elevated on admission. Continue to monitor. Continue home regimen of Lasix, metoprolol, Aldactone. 7. Hyperlipidemia-continue statin. 8. Iron deficiency anemia-continue ferrous gluconate. DVT prophylaxis-SCDs. Pharmacologic prophylaxis contraindicated. This patient was seen by ALCIDES Harding under the supervision of Dr. Cabrera. <Sandra Cabrera - Last Filed: 07/13/17 17:10> - Physical Exam Vital Signs Temp Pulse Resp BP Pulse Ox 98.5 F 68 18 107/53 L 98 07/13/17 14:57 07/13/17 14:57 07/13/17 14:57 07/13/17 14:57 07/13/17 14:57 Oxygen Delivery Method Room Air Laboratory Tests Past 24 Hrs 07/13/17 16:07 Ammonia 58.0 H Assessment/Plan This patient was seen in conjunction with nurse practitioner. I have independently interviewed and examined the patient and reviewed pertinent historical, laboratory, and other data. Please refer to her note for details of this patient's presentation, findings, and recommendations. I have reviewed her note and concur with documentation as below: Patient has no new complains. Vitals are stable. She is alert, oriented x3, has flapping tremors. Recurrent admissions for similar presentation. Been off rifaximin. Discussed with daughter who has talked to patient's wrapping machine operator who is sending patient paperwork. Asked her to let them fax to us, patient fills out quickly so we can ensure medications are ready at the time of discharge. Patient is asymptomatic for UTI, no indication of UTI, agree with stopping antibiotic. Code Visit Inpatient E&M: 45540 Subs Hosp L2
--- NOTE | 2017-07-13 14:22 | CHAPLAIN ---
Type of Pastoral Visit _x__ Initial Visit ___ Follow-up Visit ___ On-call Visit ___ General Patient Visit ___ Spiritual Assessment ___ Family Conference ___ Bereavement ___ Rapid Response ___ Code Blue ___ Other (describe below) Pastoral Care Referral From _x__ Patient ___ Family ___ Nurse ___ Physician ___ Director Of Religious Activities ___ Acid Crane Operator ___ Other (describe below) Sacrament/Intervention ___ Active listening ___ Anointing ___ Buddhism ___ Bereavement ___ Communion ___ Nuvia exploration ___ ___ Life review _x__ Prayer ___ Reconciliation ___ Sacrament of Sick _x__ Supportive presence ___ Wedding ___ Other (describe below) Pastoral Comments daughter is with patient; pt is very tired and has hard time keeping eyes open; made visit very brief
--- NOTE | 2017-07-13 14:40 | CON.PCM_ITS ---
Problem List (1) Immunocompromised patient Status: Chronic Comment: on steroids for autoimmune hepatitis Reason for Consult: (+) Ucx Consulted by: Dr. 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 Reports being off rifaximin for some time due to cost. Has been having DM at home. No fever or chills. No dysuria or changes in urine odor/color/frequency. She doesn't remember what happened the past few days. No recent abx or infections. Came to ED, UA with minimal pyuria. Given h/o recurrent uti and PCN allergy, started on meropenem. Feels much better today. Full ROS performed and neg except as noted above. - Medical History Past Medical History (Chronic Problems): Chronic Problems Iron deficiency (Chronic) Obesity (BMI 30-39.9) (Chronic) History of nephrolithiasis (Chronic) Coagulopathy (Chronic) Noncompliance (Chronic) HLD (hyperlipidemia) (Chronic) HTN (hypertension) (Chronic) CKD (chronic kidney disease) stage 3, GFR 30-59 ml/min (Chronic) Asthma (Chronic) 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 Portal hypertension status post TIPS procedure Ascites, paracentesis twice a week Pancytopenia Hepatic encephalopathy mild coagulopathy Immunocompromised patient (Chronic) on steroids for autoimmune hepatitis Pancytopenia (Chronic) 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) Autoimmune hepatitis (Chronic) Allergies/Adverse Reactions: Allergies amoxicillin Allergy (Verified 07/02/17 12:33) Hives Fish Containing Products Allergy (Verified 07/02/17 12:33) Rash Iodinated Contrast- Oral and IV Dye [Iodinated Contrast Media - IV Dye] Allergy (Verified 07/02/17 12:33) Rash Penicillins [PCN] Allergy (Verified 07/02/17 12:33) Hives Home Medications: Ambulatory Orders Medication Instructions Recorded Albuterol Inhaler [Ventolin Hfa] 2 puff INHALATION Q6H PRN PRN 06/21/16 Atorvastatin Calcium [Lipitor] 40 mg PO QHS 06/21/16 Azathioprine [Imuran] 50 mg PO DAILY@0800 06/21/16 Calcium Carb/Vitamin D3/Vit K1 1 each PO DAILY 06/21/16 [Citracal Soft Chew] Cholecalciferol (Vitamin D3) 50,000 unit PO DAILY 06/21/16 [Vitamin D3] Cyanocobalamin (Vitamin B-12) 50,000 mcg PO MOORE 06/21/16 [Vitamin B-12] Lactulose [Chronulac] 60 ml PO BID 06/21/16 Metoprolol Tartrate [Lopressor 25 mg PO BID 06/21/16 (beta harshil)] Ondansetron [Zofran Odt] 8 mg PO Q8H PRN PRN 06/21/16 Pantoprazole Sodium [Protonix] 40 mg PO DAILY 06/21/16 Sodium Bicarbonate 1,300 mg PO BID 06/21/16 Spironolactone [Aldactone] 150 mg PO DAILY 06/21/16 Zinc 50 mg PO DAILY 06/21/16 Melatonin 3 mg PO QHS 09/04/16 Furosemide [Lasix] 100 mg PO DAILY 11/02/16 TraMADol [Ultram] 50 mg PO BID PRN PRN 02/14/17 Ascorbic Acid [Vitamin C] 500 mg PO BIDCM 07/12/17 Ferrous Gluconate 325 mg PO BIDCM 07/12/17 Vital Signs Temp Pulse Resp BP Pulse Ox 97.2 F L 72 18 119/54 L 100 07/13/17 08:43 07/13/17 08:51 07/13/17 08:43 07/13/17 08:43 07/13/17 08:43 Oxygen Delivery Method Room Air Weight: 87.09 kg Body Mass Index (BMI) 32.9 Laboratory Tests Past 24 Hrs 07/13/17 07/13/17 07/13/17 07:48 07:48 07:48 WBC 2.4 L RBC 2.91 L Hgb 8.7 L Hct 27.4 L MCV 94.2 MCH 29.9 MCHC 31.8 L RDW 16.6 H RDW Differential 55.1 H Plt Count 40 L* MPV 8.9 Immature Gran % (Auto) 0.000 Neut % (Auto) 56.0 Lymph % (Auto) 27.1 [place] % (Auto) 11.4 H Eos % (Auto) 5.1 H Baso % (Auto) 0.4 Absolute Neuts (auto) 1.3 L Absolute Lymphs (auto) 0.64 L Total Counted Not Reportable Diff Path Review May foll Platelet Estimate MOD DEC Anisocytosis 1+ Ovalocytes 1+ Sodium 145 Potassium 3.9 Chloride 113 H Carbon Dioxide 23.0 Anion Gap 9 BUN 15 Creatinine 1.36 H Estim Creat Clear Calc 38.46 Est GFR (MDRD) Af Amer 51 L Est GFR (MDRD) Non-Af 42 L BUN/Creatinine Ratio 11.0 Glucose 101 Calcium 7.6 L Ammonia 93.0 H - Other Studies Radiology: [] reviewed Other Studies: [] Route of nutrition/ use of supplements: [] Nutritional Intake: [] IV Site: [] Richardson Catheter: [] - Physical Exam General: Alert, Oriented x3, Cooperative, No apparent distress HEENT: Atraumatic, PERRLA, EOMI Neck: Supple, No Nodes Lungs: Clear to auscultation, Normal air movement Cardiovascular: Regular rate, Regular Rhythm Abdomen: Bowel Sounds Present, Soft, Non Tender, Distended Extremities: Edema Skin: No rashes IV Site: Peripheral, without redness Musculoskeletal: No Tenderness to Palpation of Joints or Extremities Neurological: Cranial nerves II-XII grossly intact - Assessment/Plan Antibiotics: [] Assessment/Plan: [] Confusion, likely due to hepatitic encephalopathy. Rapidly improved. Ucx with GNR, but asymptomatic and minimal pyuria. Will stop meropenem and monitor off abx. Thank you, will follow, d/w Dr. Warren overnight.
--- NOTE | 2017-07-13 15:45 | CASEMGMT ---
EDWARD VILLATORO reviewed patient chart. Patient is a readmission: FANNIE Strata 4. Patient has history of autoimmune cirrhosis on rifaximin who presented to the ED with acute confusion at home. Patient has been off the rifaximin due to cost. Per patient's dtr, she is working with the patient's physician to obtain authorization/assistance for medication. Patient is being treated with lactulose 4x/day. Patient may need assistance in obtaining rifaximin for patient. Patient lives with daughter who provides assistance when needed. EDWARD VILLATORO notes patient with frequent admission due to difficulty obtaining medications. EDWARD VILLATORO will make social work referral to ensure no psychosocial needs related to chronic disease. Written handoff report provided to Susannah Haile RN CM for [facility].
[2017-07-13] MEDS: MELATONIN 3 MG TABLET PO (22:17)
[2017-07-13] MEDS: Atorvastatin Calcium 40 MG Tablet PO (22:19)
[2017-07-14] MEDS: Lactulose 20 GM/30 ML UDC 30 GM PO ×2 (00:22→06:50)
[2017-07-14 04:51] VITALS: BP 111/51; PULSE 63; RESP 18; TEMP 36.8; O2SAT 95
[2017-07-14 05:29] LABS: Hematocrit 24.8 % (37-47); Mean Corp Hgb Conc 32.3 g/gl (32-36); Mean Corpuscular Hgb 30.8 pg (27.0-32.0); Mean Corpuscular Volume 95.4 fL (81-99); Mean Platelet Vol. 10.8 fl (6.2-12.0); Platelet Count 46 K/mm3 (150-450); RBC Distribution Width CV 16.6 % (11.6-14.6)
[2017-07-14 05:30] LABS: Scan Indicated on CBC? Y/N YES- FLAGS NOTED
[2017-07-14 05:49] LABS: Anion Gap 6 (5-15); BUN 16 mg/dL (7-18); BUN/Creat Ratio 11.7 RATIO (10-20); Calcium,Total 7.4 mg/dL (8.5-10.1); Chloride 113 mmol/L (98-107); Creatinine, Serum 1.37 mg/dL (0.55-1.02); EST Glomerular Filtration Rate 42 mL/min (>60); Est Glom Filt Rate - Afr Amer 51 mL/min (>60); Estimated Creatinine Clearance 38.18 ml/min; Glucose 95 mg/dL (74-106); Potassium 3.8 mmol/L (3.5-5.1); Sodium Level 144 mmol/L (136-145)
[2017-07-14 05:53] LABS: Differential Comment SCANNED
[2017-07-14 09:00] VITALS: BP 111/57; PULSE 54; RESP 14; TEMP 36.4; O2SAT 98
[2017-07-14] MEDS: Pantoprazole Sodium 40 MG Tablet PO (09:09)
[2017-07-14] MEDS: Spironolactone 50 MG Tablet 150 MG PO (09:09)
[2017-07-14] MEDS: Furosemide 40 MG Tablet 100 MG PO (09:09)
[2017-07-14 09:10] VITALS: PULSE 52
[2017-07-14] MEDS: azaTHIOprine 50 MG Tablet PO (09:10)
[2017-07-14] MEDS: Sodium Bicarbonate 650 MG Tablet 1300 MG PO (09:10)
[2017-07-14 09:21] VITALS: BP 111/57; PULSE 52; RESP 16; TEMP 36.4; O2SAT 98
[2017-07-14 09:44] LABS: Pathologist Review Reviewed
[2017-07-14 09:48] LABS: Pathologist Review Reviewed
--- NOTE | 2017-07-14 10:43 | PCM.PN.ID ---
Subjective: Feeling well, no fever, no confusion, no dysuria. - Physical Exam General: Alert, Cooperative, No apparent distress Lungs: Clear to auscultation, Normal air movement Cardiovascular: Regular rate, Regular Rhythm, Murmur Abdomen: Soft, Non Tender, Distended Skin: No rashes Vital Signs Temp Pulse Resp BP Pulse Ox 97.6 F L 52 L 16 111/57 L 98 07/14/17 09:21 07/14/17 09:21 07/14/17 09:21 07/14/17 09:21 07/14/17 09:21 Oxygen Delivery Method Room Air Intake and Output for Last 24 Hours 07/12/17 07/13/17 07/14/17 23:59 23:59 23:59 Intake Total 500 / 2385 1400 / 1400 Output Total 700 / 1700 Balance -200 / 685 1400 / 1400 Laboratory Tests Past 24 Hrs 07/13/17 07/14/17 07/14/17 16:07 05:12 05:12 WBC 2.0 L RBC 2.60 L Hgb 8.0 L Hct 24.8 L MCV 95.4 MCH 30.8 MCHC 32.3 RDW 16.6 H RDW Differential 55.0 H Plt Count 46 L* MPV 10.8 Differential Comment SCANNED Diff Path Review Reviewed Sodium 144 Potassium 3.8 Chloride 113 H Carbon Dioxide 25.0 Anion Gap 6 BUN 16 Creatinine 1.37 H Estim Creat Clear Calc 38.18 Est GFR (MDRD) Af Amer 51 L Est GFR (MDRD) Non-Af 42 L BUN/Creatinine Ratio 11.7 Glucose 95 Calcium 7.4 L Ammonia 58.0 H 07/14/17 05:12 WBC RBC Hgb Hct MCV MCH MCHC RDW RDW Differential Plt Count MPV Differential Comment Diff Path Review Sodium Potassium Chloride Carbon Dioxide Anion Gap BUN Creatinine Estim Creat Clear Calc Est GFR (MDRD) Af Amer Est GFR (MDRD) Non-Af BUN/Creatinine Ratio Glucose Calcium Ammonia 91.0 H Route of nutrition/ use of supplements: [] Nutritional Intake: [] IV Site: [] Richardson Catheter: [] - Assessment/Plan Antibiotics: [] Assessment/Plan: [] Confusion, likely due to hepatitic encephalopathy. Rapidly improved. Ucx with esbl ecoli, but asymptomatic and minimal pyuria. Improving off of abx. Will sign off, nadine Cabrera.
--- NOTE | 2017-07-14 10:59 | DCINST_ITS ---
- Discharge Diagnoses Reason(s) for Visit for Discharge Instructions: Altered mental status You will use the following diet at home:: Other - low salt diet Your food should be the consistency of: Regular Your liquids should be the consistency of: Regular/Thin Discharge Activity: Return to Normal Activity Additional Instructions: Please take all your medications as prescribed. Weigh yourself daily and let your physician know if you gain more than 5 pounds. Aim for at least 3 bowel movements a day. Allergies/Adverse Reactions: Allergies amoxicillin Allergy (Verified 07/02/17 12:33) Hives Fish Containing Products Allergy (Verified 07/02/17 12:33) Rash Iodinated Contrast- Oral and IV Dye [Iodinated Contrast Media - IV Dye] Allergy (Verified 07/02/17 12:33) Rash Penicillins [PCN] Allergy (Verified 07/02/17 12:33) Hives Medications to take at Discharge Albuterol Inhaler [Ventolin Hfa] 2 puff INHALATION Q6H PRN PRN 06/21/16 Atorvastatin Calcium [Lipitor] 40 mg PO QHS 06/21/16 Azathioprine [Imuran] 50 mg PO DAILY@0800 06/21/16 Calcium Carb/Vitamin D3/Vit K1 [Citracal Soft Chew] 1 each PO DAILY 06/21/16 Cyanocobalamin (Vitamin B-12) [Vitamin B-12] 50,000 mcg PO MOORE 06/21/16 Lactulose [Chronulac] 60 ml PO BID 06/21/16 Metoprolol Tartrate [Lopressor (beta harshil)] 25 mg PO BID 06/21/16 Ondansetron [Zofran Odt] 8 mg PO Q8H PRN PRN 06/21/16 Pantoprazole Sodium [Protonix] 40 mg PO DAILY 06/21/16 Sodium Bicarbonate 1,300 mg PO BID 06/21/16 Spironolactone [Aldactone] 150 mg PO DAILY 06/21/16 Zinc 50 mg PO DAILY 06/21/16 Melatonin 3 mg PO QHS 09/04/16 Furosemide [Lasix] 100 mg PO DAILY 11/02/16 TraMADol [Ultram] 50 mg PO BID PRN PRN 02/14/17 Ascorbic Acid [Vitamin C] 500 mg PO BIDCM 07/12/17 Ferrous Gluconate 325 mg PO BIDCM 07/12/17 Cholecalciferol (Vitamin D3) [Vitamin D3] 2,000 unit PO DAILY #30 cap 07/14/17 Rifaximin [Xifaxan] 550 mg PO BID #60 tablet 07/14/17 The following prescriptions were given: Cholecalciferol (Vitamin D3) [Vitamin D3] 2,000 unit PO DAILY #30 cap Rifaximin [Xifaxan] 550 mg PO BID #60 tablet Orders to be completed after discharge: CBC W/Diff, Automated Location: Laboratory Primary Care Physician: Ayesha Vieyra MD [Primary Care Provider] - Please follow up with your Primary Care Physician in: within 2 weeks of discharge When: Follow-up with your vice president of talent acquisition as scheduled Proposed Discharge Date: 07/14/17
--- NOTE | 2017-07-14 11:00 | DS.PCM_ITS ---
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 Her past medical history includes autoimmune hepatitis, cirrhosis, coagulopathy secondary to chronic liver disease, recurrent hepatic encephalopathy, pancytopenia, renal failure stage III, asthma, hypertension, hyperlipidemia, history of TIPS procedure, iron deficiency anemia. 1. Recurrent acute hepatic encephalopathy-underlying autoimmune hepatitis, cirrhosis. Patient was previously on Xifaxan which was discontinued due to insurance not covering the medication and high cost. Clinically improved, on beta-harshil, lasix, spironolactone. Ammonia was slightly up on discharge but patient was clinically very improved at day of discharge with no flapping tremors or confusion. She had multiple bowel movements, her daughter was picking up prescription for rifaximin from [facility] later in the day. 2. Asymptomatic bacteriuria, h/o ESBL, initially started on Meropenem, ID consulted, taken off Meropenem. 3. Coagulopathy/pancytopenia secondary to chronic liver disease-stable, continue to monitor. 4. Chronic renal failure stage III-stable 5. Chronic asthma-no acute exacerbation 6. Hypertension-elevated on admission, on home regimen of Lasix, metoprolol, Aldactone. 7. Hyperlipidemia, on statin. 8. Iron deficiency anemia-on ferrous gluconate. Discharge Diet: 2000 mg Sodium Diet Discharge Activity: Return to Normal Activity Home Medications: Medications to take at Discharge Albuterol Inhaler [Ventolin Hfa] 2 puff INHALATION Q6H PRN PRN 06/21/16 Atorvastatin Calcium [Lipitor] 40 mg PO QHS 06/21/16 Azathioprine [Imuran] 50 mg PO DAILY@0800 06/21/16 Calcium Carb/Vitamin D3/Vit K1 [Citracal Soft Chew] 1 each PO DAILY 06/21/16 Cyanocobalamin (Vitamin B-12) [Vitamin B-12] 50,000 mcg PO MOORE 06/21/16 Lactulose [Chronulac] 60 ml PO BID 06/21/16 Metoprolol Tartrate [Lopressor (beta harshil)] 25 mg PO BID 06/21/16 Ondansetron [Zofran Odt] 8 mg PO Q8H PRN PRN 06/21/16 Pantoprazole Sodium [Protonix] 40 mg PO DAILY 06/21/16 Sodium Bicarbonate 1,300 mg PO BID 06/21/16 Spironolactone [Aldactone] 150 mg PO DAILY 06/21/16 Zinc 50 mg PO DAILY 06/21/16 Melatonin 3 mg PO QHS 09/04/16 Furosemide [Lasix] 100 mg PO DAILY 11/02/16 TraMADol [Ultram] 50 mg PO BID PRN PRN 02/14/17 Ascorbic Acid [Vitamin C] 500 mg PO BIDCM 07/12/17 Ferrous Gluconate 325 mg PO BIDCM 07/12/17 Cholecalciferol (Vitamin D3) [Vitamin D3] 2,000 unit PO DAILY #30 cap 07/14/17 Rifaximin [Xifaxan] 550 mg PO BID #60 tablet 07/14/17 Following Prescrptions Were Given to Patient: Cholecalciferol (Vitamin D3) [Vitamin D3] 2,000 unit PO DAILY #30 cap Rifaximin [Xifaxan] 550 mg PO BID #60 tablet Other Amb Orders: CBC W/Diff, Automated Location: Laboratory Primary Care Physician: Ayesha Vieyra MD [Primary Care Provider] - Please follow up with your Primary Care Physician in: within 2 weeks of discharge When: Follow-up with your director of supply chain as scheduled Additional Instructions: Please take all your medications as prescribed. Weigh yourself daily and let your physician know if you gain more than 5 pounds. Aim for at least 3 bowel movements a day. Disposition: Home Minutes spent on discharge:: 25 Patient Condition:: Stable Meaningful Use Info Meaningful Use Diagnoses (Choose all that apply): None applicable Code Visit Inpatient E&M: 78561 Subs Hosp L2
--- NOTE | 2017-07-14 12:13 | CASEMGMT ---
SW received referral from CM regarding pt's ongoing health difficulties, to offer support. SW met w/pt and daughter Tapan in room. Daughter Tapan states that they just learned pt's Rifaxamin was approved and they are very happy about this. SW inquired how things have been going recently. Daughter states pt's liver doctor retired on June 05, but pt has a new physician, Dr. Lebron. Daughter states pt has actually seen this doctor before, and this is why they picked him. Daughter states this physician is helping to get other tests set up for pt. SW inquired how things are going at home. Pt's daughter Tapan is her lieutenant fire fighter, and is pt's POA. Pt has another daughter and a son, but Tapan helps w/decisions. Pt and daughter explained that they actually have an appt in August to update pt's POA and living will forms. We talked about pt's wishes, daughter is already aware of pt's wishes in particular as it relates to pt being on a vent. Tapan states pt would be on one short term, but would not want to live on one. Pt nodded in agreement, acknowledged how important it is that they have had these discussions to Tapan knows the pt's wishes. Tapan states pt's son in particular wants nothing to do with the decision making. Tapan states she is the one to make decisions, and is the youngest. SW offered support to Tapan in all that she is doing for her mother. SW asked pt about her mental health, in particular in relation to her health. Pt states she is fine, states has no depressive feelings and is doing well. Tapan states pt was diagnosed in 2008, so it has been a long time. No further needs at this time, pt home today w/daughter Tapan who helps care for her. [facility] did set up hospital van for 2:30pm for pt and daughter, let them and pt's RN know. GRISELDA Glez, FINAL INSPECTOR PAPER
[2017-07-14 13:00] VITALS: BP 116/72; PULSE 62; RESP 16; TEMP 36.6; O2SAT 96
== END 2017-07-14 14:25 | disposition home or self-care (01) | DRG 442 ==
LOC: ED 16:39 → MS2 17:50
PROVIDERS: Nurse Practitioner Family; Admitting Provider Internal Medicine; Emergency Provider Emergency Medicine; Family Provider Internal Medicine; PCP Internal Medicine; Visit Provider Internal Medicine
DX: K72.00 Acute and subacute hepatic failure without coma (principal); D68.4 Acquired coagulation factor deficiency; D61.818 Other pancytopenia; D68.9 Coagulation defect, unspecified; N18.3 Chronic kidney disease, stage 3 (moderate); R82.71 Bacteriuria; I12.9 Hypertensive chronic kidney disease with stage 1 through stage 4 chronic kidney disease, or unspecified chronic kidney disease; E66.9 Obesity, unspecified; K73.9 Chronic hepatitis, unspecified; K74.60 Unspecified cirrhosis of liver; K75.4 Autoimmune hepatitis; E78.5 Hyperlipidemia, unspecified; J45.909 Unspecified asthma, uncomplicated; D50.9 Iron deficiency anemia, unspecified; Z88.0 Allergy status to penicillin; Z68.32 Body mass index [BMI] 32.0-32.9, adult; Z87.891 Personal history of nicotine dependence; Z87.442 Personal history of urinary calculi
CPT/HCPCS: 36415; 80048; 80076; 81001; 82140; 83690; 85025; 85027; 85610; 87077; 87086; 87088; 87186; 97802; 99285; J2185; P9612; A4216

== ENCOUNTER 2017-08-22 00:45 | Emergency (ER) | payer MEDICARE, MEDICAID, SELFPAY ==
[2017-08-22 00:47] VITALS: BP 165/82; PULSE 94; RESP 16; TEMP 38.3; O2SAT 95; BMI 36.7
--- NOTE | 2017-08-22 01:35 | ED.VISSUMM ---
- ER Visit Summary Date of Service: 08/22/17 Chief Complaint: Nausea and vomiting History of Present Illness: The patient is a 57 F 3 of autoimmune hepatitis with intermittent hepatic encephalopathy. Also history of hypertension, anemia and some mild renal insufficiency. Per the patient and her family member she has had nausea and vomiting since Tuesday. Fever. And chills. No dysuria. No diarrhea. No constipation. Mild upper abdominal discomfort. Physical Examination: Well-appearing middle-age female vital signs are stable she does have a fever 101. Pulse is 95% room air no signs of hypoxia. She does not look septic or toxic. HEENT exam mildly dry mucous members otherwise unremarkable. Neck nontender no lymphadenopathy. Lungs clear to auscultation bilaterally. Heart regular rhythm no murmur. Abdomen is soft nondistended normal bowel sounds. No peritoneal signs. Mild epigastric right upper quadrant tenderness. No John sign. No McBurney's point tenderness. Mild obesity. No hernias or masses no signs of obstruction. Moving all 4 extremities. Nontender no edema. Back exam nontender. Neurologically awake and alert with no focal motor deficits. Skin no rashes. Test Results: CBC shows a white count of 4. H&H of 10 and 30 which is her baseline anemia. Reticulocyte count 39,000 which is also chronic in her baseline. Electrolytes are unremarkable. Normal gap and creatinine. Liver enzymes are elevated but again her baseline with her history of chronic autoimmune hepatitis. Lipase is normal. Ammonia level is only 46 in the past she has been much higher than this. Emergency Department Course and Treatment: Patient be treated with IV fluids and IV Zofran. Labs will be obtained. Treatment Plan: Much better on several repeat exams both at 03 15 and oh 4:40 AM. She feels comfortable being discharged home. She will be written for Zofran and given a home pack. Disposition: Discharge Impression: Acute nausea and vomiting History of autoimmune hepatitis Chronic anemia and thrombocytopenia This note was generated with [employer] dictation software. It may contain incorrect words, spelling, and punctuation that were not noted in review of the chart prior to signing ED Disposition - Plan for ED Patient: Chief Complaint: Nausea/Vomiting Referrals: Ayesha Vieyra MD [Primary Care Provider] -
--- NOTE | 2017-08-22 02:49 | ED.RN ---
unable to obtain IV access at this time due to multiple IV attempts. Spoke with Dr. Ortez at this time. Blood draw completed to obtain blood work and we will wait for results at this time and determine next plan of care
[2017-08-22 03:04] LABS: Absolute Lymphocyte Count 0.44 X10^3/ul (0.83-4.51); Absolute Neutrophil Count 3.4 X10^3/uL (2.0-7.7); Basophil# 0.01 X10^3/uL; Basophil% 0.2 % (0-1); Eosinophil# 0.02 X10^3/uL; Eosinophils% 0.5 % (0-5); Hematocrit 30.4 % (37-47); Hemoglobin 10.1 g/dl (12.0-15.0); Lymphocyte # 0.44 X10^3/ul (4.0); Mean Corp Hgb Conc 33.2 g/gl (32-36); Mean Corpuscular Hgb 31.4 pg (27.0-32.0); Mean Corpuscular Volume 94.4 fL (81-99); Mean Platelet Vol. 8.1 fl (6.2-12.0); Monocyte% 11.3 % (0-10); Neutrophil # 3.44 X10^3/uL (2.7-7.7); Neutrophil % 77.8 % (47-70); RBC Distribution Width CV 15.2 % (11.6-14.6); RBC Distribution Width SD 50.3 fl (35.1-43.9); Red Blood Count 3.22 M/mm3 (4.2-5.4); White Blood Count 4.4 K/mm3 (4.4-11.0)
[2017-08-22 03:05] LABS: Differential Indicated SCAN CRITERIA MET; POSITIVE COUNT YES; POSITIVE DIFFERENTIAL YES; POSITIVE MORPHOLOGY NO; Platelet Count 39 K/mm3 (150-450)
[2017-08-22 03:12] LABS: AST(SGOT) 52 U/L (15-37); Alanine Aminotransfer ALT/SGPT 29 U/L (13-56); Alkaline Phosphatase 94 U/L (45-117); Anion Gap 7 (5-15); BUN 12 mg/dL (7-18); BUN/Creat Ratio 12.1 RATIO (10-20); Calcium,Total 7.6 mg/dL (8.5-10.1); Chloride 109 mmol/L (98-107); Creatinine, Serum 0.99 mg/dL (0.55-1.02); EST Glomerular Filtration Rate 61 mL/min (>60); Est Glom Filt Rate - Afr Amer 74 mL/min (>60); Estimated Creatinine Clearance 43.95 ml/min; Globulin 4.8 g/dL (2.2-4.2); Glucose 91 mg/dL (74-106); Lipase 80 U/L (73-393); Potassium 3.9 mmol/L (3.5-5.1); Protein, Total 6.8 g/dL (6.4-8.2); Sodium Level 138 mmol/L (136-145)
[2017-08-22 03:26] LABS: Differential Comment SCANNED
[2017-08-22 03:27] LABS: Platelet Estimate MKD DEC (ADEQ)
--- NOTE | 2017-08-22 04:46 | ED.DEP ---
ED Disposition - Plan for ED Patient: Disposition: Home or Assisted Living Chief Complaint: Nausea/Vomiting Instructions: ED Nausea Vomiting Prescriptions: Ondansetron [Zofran Odt] 4 mg PO Q4H PRN PRN #10 tab.rapdis PRN Reason: Nausea Referrals: Ayesha Vieyra MD [Primary Care Provider] - 3-5 Days if not improving Additional Instructions: Zofran as needed for nausea. Plenty fluids and rest. Return to the ER if you are feeling worse otherwise follow-up your primary care physician.
[2017-08-22] MEDS: Ondansetron ODT 4 MG Tablet PO (04:57)
[2017-08-22 04:59] VITALS: BP 152/87; PULSE 97; RESP 17; O2SAT 96
--- NOTE | 2017-08-22 05:00 | ED.RN ---
PT GIVEN WRITTEN AND VERBAL DISCHARGE INSTRUCTIONS, HOME GOING SCRIPT, AND HOME PACK. PT VERBALIZES UNDERSTANDING OF INSTRUCTIONS AND MEDICATION. DENIES ANY FURTHER QUESTIONS. PT DRESSES SELF AND AMBULATES OUT OF DEPT WITH FAMILY MEMBER.
[2017-08-22 12:52] LABS: Pathologist Review Reviewed
== END 2017-08-22 05:04 | disposition home or self-care (01) ==
PROVIDERS: Emergency Provider Emergency Medicine; Family Provider Internal Medicine; PCP Internal Medicine
DX: R11.2 Nausea with vomiting, unspecified (principal); K75.4 Autoimmune hepatitis; D69.6 Thrombocytopenia, unspecified; I25.10 Atherosclerotic heart disease of native coronary artery without angina pectoris; I10 Essential (primary) hypertension; I25.2 Old myocardial infarction; D64.9 Anemia, unspecified
CPT/HCPCS: 36415; 80048; 80076; 82140; 83690; 85025; 99285; J2405

== ENCOUNTER 2017-10-04 16:25 | Inpatient (IN) | payer MEDICARE, MEDICAID, SELFPAY ==
--- NOTE | 2017-10-04 15:33 | PCM.HP.STD ---
Problem List (1) Iron deficiency Status: Chronic (2) Obesity (BMI 30-39.9) Status: Chronic (3) History of nephrolithiasis Status: Chronic (4) Coagulopathy Status: Chronic (5) Noncompliance Status: Chronic (6) HLD (hyperlipidemia) Status: Chronic (7) HTN (hypertension) Status: Chronic (8) CKD (chronic kidney disease) stage 3, GFR 30-59 ml/min Status: Chronic (9) SBP (spontaneous bacterial peritonitis) Status: Resolved (10) Hepatic encephalopathy Status: Acute (11) Asthma Status: Chronic (12) Cirrhosis of liver Status: Chronic Qualifiers: Comment: due to autoimmune hepatitis Portal hypertension status post TIPS procedure Ascites, paracentesis twice a week Pancytopenia Hepatic encephalopathy mild coagulopathy (13) Immunocompromised patient Status: Chronic Comment: on steroids for autoimmune hepatitis (14) Pancytopenia Status: Chronic (15) S/P TIPS (transjugular intrahepatic portosystemic shunt) Status: Chronic (16) Autoimmune hepatitis Status: Chronic History of Present Illness Date of Admission: 10/04/17 The patient is a 57 year old F [] Past Medical History Past Medical History (Chronic Problems): Chronic Problems Iron deficiency (Chronic) Obesity (BMI 30-39.9) (Chronic) History of nephrolithiasis (Chronic) Coagulopathy (Chronic) Noncompliance (Chronic) HLD (hyperlipidemia) (Chronic) HTN (hypertension) (Chronic) CKD (chronic kidney disease) stage 3, GFR 30-59 ml/min (Chronic) Asthma (Chronic) 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 Portal hypertension status post TIPS procedure Ascites, paracentesis twice a week Pancytopenia Hepatic encephalopathy mild coagulopathy Immunocompromised patient (Chronic) on steroids for autoimmune hepatitis Pancytopenia (Chronic) 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) Autoimmune hepatitis (Chronic) Allergies amoxicillin Allergy (Verified 08/22/17 00:47) Hives Fish Containing Products Allergy (Verified 08/22/17 00:47) Rash Iodinated Contrast- Oral and IV Dye [Iodinated Contrast Media - IV Dye] Allergy (Verified 08/22/17 00:47) Rash Penicillins [PCN] Allergy (Verified 08/22/17 00:47) Hives Home Medications: Ambulatory Orders Medication Instructions Recorded Albuterol Inhaler [Ventolin Hfa] 2 puff INHALATION Q6H PRN PRN 01/16/17 Atorvastatin Calcium [Lipitor] 40 mg PO QHS 06/21/16 Azathioprine [Imuran] 50 mg PO DAILY@0800 06/21/16 Calcium Carb/Vitamin D3/Vit K1 1 each PO DAILY 06/21/16 [Citracal Soft Chew] Cyanocobalamin (Vitamin B-12) 50,000 mcg PO MOORE 06/21/16 [Vitamin B-12] Lactulose [Chronulac] 60 ml PO BID 06/21/16 Metoprolol Tartrate [Lopressor 25 mg PO BID 06/21/16 (beta harshil)] Ondansetron [Zofran Odt] 8 mg PO Q8H PRN PRN 06/21/16 Pantoprazole Sodium [Protonix] 40 mg PO DAILY 06/21/16 Sodium Bicarbonate 1,300 mg PO BID 06/21/16 Spironolactone [Aldactone] 150 mg PO DAILY 06/21/16 Zinc 50 mg PO DAILY 06/21/16 Melatonin 3 mg PO QHS 09/04/16 Furosemide [Lasix] 100 mg PO DAILY 11/02/16 traMADol [Ultram] 50 mg PO BID PRN PRN 02/14/17 Ascorbic Acid [Vitamin C] 500 mg PO BIDCM 07/12/17 Ferrous Gluconate 325 mg PO BIDCM 07/12/17 Cholecalciferol (Vitamin D3) 2,000 unit PO DAILY #30 cap 07/14/17 [Vitamin D3] Rifaximin [Xifaxan] 550 mg PO BID #60 tablet 07/14/17 Ondansetron [Zofran Odt] 4 mg PO Q4H PRN PRN #10 tab.rapdis 08/22/17 Surgical History: tonsillectomy, - - TIPS. Psychiatric History: No pertinent psych hx BRICK DROPPER History: No pertinent BRICK DROPPER history Lives: With Family Smoking Status: Former smoker Alcohol: None Drugs: None - *Family History Maternal History Items: No pertinent history, - - unable to obtain as patient is confused. Paternal History Items: No pertinent history, - - unable to obtain as patient is confused. VTE Information - Inpt Only VTE Present on Admission: No VTE Mechan Device Prophylaxis: SCD's VTE Pharm Prophylaxis ordered?: No Reason prophylaxis not ordered:: Medical Contraindication - Physical Exam Cardiovascular: Murmur Finger Stick Blood Glucose 108 Assessment/Plan 1. Recurrent acute hepatic encephalopathy-secondary to autoimmune hepatitis and cirrhosis. Ammonia level 82 which is fairly stable from previous documented ammonia levels. Begin lactulose 4 times daily. Patient was previously on Xifaxan but had to discontinue due to high cost. Zofran as needed for nausea. Continue to harshil, Lasix, spironolactone. Trend ammonia. 2. Acute cystitis-UA positive for leukocytes and nitrites. Urine culture sent. Patient denies urinary symptoms. Afebrile. Previous urine cultures show ESBL. Patient was started on IV meropenem. Infectious disease consulted. Possible colonization? 3. Coagulopathy/pancytopenia secondary to chronic liver disease-stable, continue to monitor. Avoid heparin. 4. Chronic kidney disease stage III-stable, monitor BMP. 5. Chronic asthma-no acute exacerbation. Albuterol aerosol as needed for shortness of breath. 6. Hypertension-elevated on admission. Continue to monitor. Continue home regimen of Lasix, metoprolol, Aldactone. 7. Hyperlipidemia-continue statin. 8. Iron deficiency anemia-continue ferrous gluconate. DVT prophylaxis-SCDs. Pharmacologic prophylaxis contraindicated. This patient was seen by ALCIDES Harding under the supervision of Dr. Corrales.
[2017-10-04 16:57] VITALS: BMI 32.8
[2017-10-04 17:09] VITALS: BP 165/82; PULSE 78; RESP 18; TEMP 36.7; O2SAT 98
--- NOTE | 2017-10-04 17:41 | PCM.HP.STD ---
Problem List (1) Iron deficiency Status: Chronic (2) Obesity (BMI 30-39.9) Status: Chronic (3) History of nephrolithiasis Status: Chronic (4) Coagulopathy Status: Chronic (5) Noncompliance Status: Chronic (6) HLD (hyperlipidemia) Status: Chronic (7) HTN (hypertension) Status: Chronic (8) CKD (chronic kidney disease) stage 3, GFR 30-59 ml/min Status: Chronic (9) SBP (spontaneous bacterial peritonitis) Status: Resolved (10) Hepatic encephalopathy Status: Acute (11) Asthma Status: Chronic (12) Cirrhosis of liver Status: Chronic Qualifiers: Comment: due to autoimmune hepatitis Portal hypertension status post TIPS procedure Ascites, paracentesis twice a week Pancytopenia Hepatic encephalopathy mild coagulopathy (13) Immunocompromised patient Status: Chronic Comment: on steroids for autoimmune hepatitis (14) Pancytopenia Status: Chronic (15) S/P TIPS (transjugular intrahepatic portosystemic shunt) Status: Chronic (16) Autoimmune hepatitis Status: Chronic History of Present Illness Date of Admission: 10/04/17 Chief Complaint: Confusion or altered mental status today The patient is a 57 year old F with history of autoimmune cirrhosis decompensated with ascites, hepatic encephalopathy and thrombocytopenia was directly admitted from [facility] for altered mental status, confusion and disorientation since 6:00 AM as per the daughter. Patient had TIPS placed for ascites which required multiple paracentesis in the past about 3 years ago. She was having multiple episodes of HE for which shunt was narrowed about fall 2016. Since then, her ascites is increased. Here, she is still confused, disoriented, her eyes closed, emotional labile with crying. Blood work from ER reviewed which significant for pancytopenia which is chronic, WBC 3.4 thousand, hemoglobin 10.1 and platelet count 46,000. CMP significant for AST 75, ALT 36. Sodium 135. Ammonia 212. CT head was done, report not available CD sent to radiology for uploading. [] Past Medical History Past Medical History (Chronic Problems): Chronic Problems Iron deficiency (Chronic) Obesity (BMI 30-39.9) (Chronic) History of nephrolithiasis (Chronic) Coagulopathy (Chronic) Noncompliance (Chronic) HLD (hyperlipidemia) (Chronic) HTN (hypertension) (Chronic) CKD (chronic kidney disease) stage 3, GFR 30-59 ml/min (Chronic) Asthma (Chronic) 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 Portal hypertension status post TIPS procedure Ascites, paracentesis twice a week Pancytopenia Hepatic encephalopathy mild coagulopathy Immunocompromised patient (Chronic) on steroids for autoimmune hepatitis Pancytopenia (Chronic) 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) Autoimmune hepatitis (Chronic) Allergies amoxicillin Allergy (Verified 08/22/17 00:47) Hives Fish Containing Products Allergy (Verified 08/22/17 00:47) Rash Iodinated Contrast- Oral and IV Dye [Iodinated Contrast Media - IV Dye] Allergy (Verified 08/22/17 00:47) Rash Penicillins [PCN] Allergy (Verified 08/22/17 00:47) Hives Home Medications: Ambulatory Orders Medication Instructions Recorded Albuterol Inhaler [Ventolin Hfa] 2 puff INHALATION Q6H PRN PRN 06/21/16 Atorvastatin Calcium [Lipitor] 40 mg PO QHS 06/21/16 Azathioprine [Imuran] 50 mg PO DAILY@0800 06/21/16 Calcium Carb/Vitamin D3/Vit K1 1 each PO DAILY 06/21/16 [Citracal Soft Chew] Cyanocobalamin (Vitamin B-12) 50,000 mcg PO MOORE 06/21/16 [Vitamin B-12] Lactulose [Chronulac] 60 ml PO BID 06/21/16 Metoprolol Tartrate [Lopressor 25 mg PO BID 06/21/16 (beta harshil)] Ondansetron [Zofran Odt] 8 mg PO Q8H PRN PRN 06/21/16 Pantoprazole Sodium [Protonix] 40 mg PO DAILY 06/21/16 Sodium Bicarbonate 1,300 mg PO BID 06/21/16 Spironolactone [Aldactone] 150 mg PO DAILY 06/21/16 Zinc 50 mg PO DAILY 06/21/16 Melatonin 3 mg PO QHS 09/04/16 Furosemide [Lasix] 100 mg PO DAILY 11/02/16 traMADol [Ultram] 50 mg PO BID PRN PRN 02/14/17 Ascorbic Acid [Vitamin C] 500 mg PO BIDCM 07/12/17 Ferrous Gluconate 325 mg PO BIDCM 07/12/17 Calcium Carbonate 500 mg PO BID 10/04/17 Cholecalciferol (Vitamin D3) 2,000 unit PO DAILY 10/04/17 [Vitamin D3] Rifaximin [Xifaxan] 550 mg PO BID 10/04/17 Surgical History: tonsillectomy, - - TIPS. Psychiatric History: No pertinent psych hx [employer] History: No pertinent [employer] history Smoking Status: Former smoker - *Family History Maternal History Items: No pertinent history, - - unable to obtain as patient is confused. Paternal History Items: No pertinent history, - - unable to obtain as patient is confused. Review of Systems Constitutional: Denies: Chills, Fever Unable to obtain accurate/complete ROS d/t: Patient is confused and altered mental status VTE Information - Inpt Only VTE Present on Admission: No VTE Mechan Device Prophylaxis: SCD's Reason prophylaxis not ordered:: Medical Contraindication - Severe thrombocytopenia - Physical Exam General: Confused, Disoriented, Lethargic, Non-Cooperative HEENT: Atraumatic, PERRLA, EOMI, Normocephalic, - - Icterus Oral: Dry Mucosa Neck: Supple, No JVD, Negative Carotid Bruits Lungs: Clear to auscultation, No rhonchi, No wheeze, Diminished Cardiovascular: Regular rate, Regular Rhythm, Normal S1, Normal S2, No murmurs Abdomen: Bowel Sounds Present, Soft, Non Tender, - - Ascites present Extremities: Capillary Refill Less than 3 Seconds, Edema Skin: No rashes, No breakdown Musculoskeletal: No Tenderness to Palpation of Joints or Extremities, Arthritic Changes Neurological: Cranial nerves II-XII grossly intact Psych/Mental Status: Agitated, Anxious Vital Signs Temp Pulse Resp BP Pulse Ox 98.1 F 78 18 165/82 H 98 10/04/17 17:09 10/04/17 17:09 10/04/17 17:09 10/04/17 17:09 10/04/17 17:09 Oxygen Delivery Method Room Air Weight: 191 lb 2.252 oz Body Mass Index (BMI) 32.8 Finger Stick Blood Glucose 108 Assessment/Plan The patient is a 57 year old F with history of autoimmune cirrhosis decompensated with ascites, hepatic encephalopathy and thrombocytopenia was directly admitted from [facility] for altered mental status, confusion and disorientation since 6:00 AM as per the daughter. Patient had TIPS placed for ascites which required multiple paracentesis in the past about 3 years ago. She was having multiple episodes of HE for which shunt was narrowed about fall 2016. Since then, her ascites is increased. Here, she is still confused, disoriented, her eyes closed, emotional labile with crying. Patient was last admitted in July 2017 for hepatic encephalopathy. Blood work from ER reviewed which significant for pancytopenia which is chronic, WBC 3.4 thousand, hemoglobin 10.1 and platelet count 46,000. CMP significant for AST 75, ALT 36. Sodium 135. Ammonia 212. CT head was done, report not available CD sent to radiology for uploading. 1. Altered mental status secondary to hepatic encephalopathy, stage 3 without coma: Patient is being admitted on the [facility] floor. Chest x-ray portable ordered. Started on lactulose rectal; if patient awake, oral and Xifaxan. IV fluid normal saline while n.p.o. UA with urine culture ordered. Cell count and differential culture ordered for tomorrow for ultrasound-guided paracentesis. Started on IV ceftriaxone empirically for possible infectious cause for encephalopathy until we rule out UTI or SBP 2. Decompensated autoimmune cirrhosis with ascites, hepatic extremities status post TIPS and thrombocytopenia portosystemic shunt: Avoid aspirin or anticoagulation. Patient is on transplant list at [facility]. Check CBC, CMP daily. 3. Chronic iron versus anemia on ferrous gluconate. Other comorbidities include history of ESBL E. coli UTI in July 2017, pancytopenia/colopathy secondary to cirrhosis, CKD stage III, chronic asthma, hypertension and dyslipidemia: Stable. DVT prophylaxis: Pharmacological prophylaxis contraindicated secondary to pancytopenia with severe thrombocytopenia. Code Visit Inpatient E&M: 34296 Init Hosp L3
--- NOTE | 2017-10-04 18:00 | HP.PCM_ITS ---
Problem List (1) Iron deficiency Status: Chronic (2) Obesity (BMI 30-39.9) Status: Chronic (3) History of nephrolithiasis Status: Chronic (4) Coagulopathy Status: Chronic (5) Noncompliance Status: Chronic (6) HLD (hyperlipidemia) Status: Chronic (7) HTN (hypertension) Status: Chronic (8) CKD (chronic kidney disease) stage 3, GFR 30-59 ml/min Status: Chronic (9) SBP (spontaneous bacterial peritonitis) Status: Resolved (10) Hepatic encephalopathy Status: Acute (11) Asthma Status: Chronic (12) Cirrhosis of liver Status: Chronic Qualifiers: Comment: due to autoimmune hepatitis Portal hypertension status post TIPS procedure Ascites, paracentesis twice a week Pancytopenia Hepatic encephalopathy mild coagulopathy (13) Immunocompromised patient Status: Chronic Comment: on steroids for autoimmune hepatitis (14) Pancytopenia Status: Chronic (15) S/P TIPS (transjugular intrahepatic portosystemic shunt) Status: Chronic (16) Autoimmune hepatitis Status: Chronic History of Present Illness Date of Admission: 10/04/17 Chief Complaint: Confusion or altered mental status today The patient is a 57 year old F with history of autoimmune cirrhosis decompensated with ascites, hepatic encephalopathy and thrombocytopenia was directly admitted from [facility] for altered mental status, confusion and disorientation since 6:00 AM as per the daughter. Patient had TIPS placed for ascites which required multiple paracentesis in the past about 3 years ago. She was having multiple episodes of HE for which shunt was narrowed about fall 2016. Since then, her ascites is increased. Here, she is still confused, disoriented, her eyes closed, emotional labile with crying. Blood work from ER reviewed which significant for pancytopenia which is chronic , WBC 3.4 thousand, hemoglobin 10.1 and platelet count 46,000. CMP significant for AST 75, ALT 36. Sodium 135. Ammonia 212. CT head was done, report not available CD sent to radiology for uploading. [] Past Medical History Past Medical History (Chronic Problems): Chronic Problems Iron deficiency (Chronic) Obesity (BMI 30-39.9) (Chronic) History of nephrolithiasis (Chronic) Coagulopathy (Chronic) Noncompliance (Chronic) HLD (hyperlipidemia) (Chronic) HTN (hypertension) (Chronic) CKD (chronic kidney disease) stage 3, GFR 30-59 ml/min (Chronic) Asthma (Chronic) 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 Portal hypertension status post TIPS procedure Ascites, paracentesis twice a week Pancytopenia Hepatic encephalopathy mild coagulopathy Immunocompromised patient (Chronic) on steroids for autoimmune hepatitis Pancytopenia (Chronic) 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) Autoimmune hepatitis (Chronic) Allergies amoxicillin Allergy (Verified 08/22/17 00:47) Hives Fish Containing Products Allergy (Verified 08/22/17 00:47) Rash Iodinated Contrast- Oral and IV Dye [Iodinated Contrast Media - IV Dye] Allergy (Verified 08/22/17 00:47) Rash Penicillins [PCN] Allergy (Verified 08/22/17 00:47) Hives Home Medications: Ambulatory Orders Medication Instructions Recorded Albuterol Inhaler [Ventolin Hfa] 2 puff INHALATION Q6H PRN PRN 06/21/16 Atorvastatin Calcium [Lipitor] 40 mg PO QHS 06/21/16 Azathioprine [Imuran] 50 mg PO DAILY@0800 06/21/16 Calcium Carb/Vitamin D3/Vit K1 1 each PO DAILY 06/21/16 [Citracal Soft Chew] Cyanocobalamin (Vitamin B-12) 50,000 mcg PO MOORE 06/21/16 [Vitamin B-12] Lactulose [Chronulac] 60 ml PO BID 06/21/16 Metoprolol Tartrate [Lopressor 25 mg PO BID 06/21/16 (beta harshil)] Ondansetron [Zofran Odt] 8 mg PO Q8H PRN PRN 06/21/16 Pantoprazole Sodium [Protonix] 40 mg PO DAILY 06/21/16 Sodium Bicarbonate 1,300 mg PO BID 06/21/16 Spironolactone [Aldactone] 150 mg PO DAILY 06/21/16 Zinc 50 mg PO DAILY 06/21/16 Melatonin 3 mg PO QHS 09/04/16 Furosemide [Lasix] 100 mg PO DAILY 11/02/16 traMADol [Ultram] 50 mg PO BID PRN PRN 02/14/17 Ascorbic Acid [Vitamin C] 500 mg PO BIDCM 07/12/17 Ferrous Gluconate 325 mg PO BIDCM 07/12/17 Calcium Carbonate 500 mg PO BID 10/04/17 Cholecalciferol (Vitamin D3) 2,000 unit PO DAILY 10/04/17 [Vitamin D3] Rifaximin [Xifaxan] 550 mg PO BID 10/04/17 Surgical History: tonsillectomy, - - TIPS. Psychiatric History: No pertinent psych hx KITMAN History: No pertinent KITMAN history Smoking Status: Former smoker - *Family History Maternal History Items: No pertinent history, - - unable to obtain as patient is confused. Paternal History Items: No pertinent history, - - unable to obtain as patient is confused. Review of Systems Constitutional: Denies: Chills, Fever Unable to obtain accurate/complete ROS d/t: Patient is confused and altered mental status VTE Information - Inpt Only VTE Present on Admission: No VTE Mechan Device Prophylaxis: SCD's Reason prophylaxis not ordered:: Medical Contraindication - Severe thrombocytopenia - Physical Exam General: Confused, Disoriented, Lethargic, Non-Cooperative HEENT: Atraumatic, PERRLA, EOMI, Normocephalic, - - Icterus Oral: Dry Mucosa Neck: Supple, No JVD, Negative Carotid Bruits Lungs: Clear to auscultation, No rhonchi, No wheeze, Diminished Cardiovascular: Regular rate, Regular Rhythm, Normal S1, Normal S2, No murmurs Abdomen: Bowel Sounds Present, Soft, Non Tender, - - Ascites present Extremities: Capillary Refill Less than 3 Seconds, Edema Skin: No rashes, No breakdown Musculoskeletal: No Tenderness to Palpation of Joints or Extremities, Arthritic Changes Neurological: Cranial nerves II-XII grossly intact Psych/Mental Status: Agitated, Anxious Vital Signs Temp Pulse Resp BP Pulse Ox 98.1 F 78 18 165/82 H 98 10/04/17 17:09 10/04/17 17:09 10/04/17 17:09 10/04/17 17:09 10/04/17 17:09 Oxygen Delivery Method Room Air Weight: 191 lb 2.252 oz Body Mass Index (BMI) 32.8 Finger Stick Blood Glucose 108 Assessment/Plan The patient is a 57 year old F with history of autoimmune cirrhosis decompensated with ascites, hepatic encephalopathy and thrombocytopenia was directly admitted from [facility] for altered mental status, confusion and disorientation since 6:00 AM as per the daughter. Patient had TIPS placed for ascites which required multiple paracentesis in the past about 3 years ago. She was having multiple episodes of HE for which shunt was narrowed about fall 2016. Since then, her ascites is increased. Here, she is still confused, disoriented, her eyes closed, emotional labile with crying. Patient was last admitted in July 2017 for hepatic encephalopathy. Blood work from ER reviewed which significant for pancytopenia which is chronic , WBC 3.4 thousand, hemoglobin 10.1 and platelet count 46,000. CMP significant for AST 75, ALT 36. Sodium 135. Ammonia 212. CT head was done, report not available CD sent to radiology for uploading. 1. Altered mental status secondary to hepatic encephalopathy, stage 3 without coma: Patient is being admitted on the [facility] floor. Chest x-ray portable ordered. Started on lactulose rectal; if patient awake, oral and Xifaxan. IV fluid normal saline while n.p.o. UA with urine culture ordered. Cell count and differential culture ordered for tomorrow for ultrasound-guided paracentesis. Started on IV ceftriaxone empirically for possible infectious cause for encephalopathy until we rule out UTI or SBP 2. Decompensated autoimmune cirrhosis with ascites, hepatic extremities status post TIPS and thrombocytopenia portosystemic shunt: Avoid aspirin or anticoagulation. Patient is on transplant list at [facility]. Check CBC , CMP daily. 3. Chronic iron versus anemia on ferrous gluconate. Other comorbidities include history of ESBL E. coli UTI in July 2017, pancytopenia/colopathy secondary to cirrhosis, CKD stage III, chronic asthma, hypertension and dyslipidemia: Stable. DVT prophylaxis: Pharmacological prophylaxis contraindicated secondary to pancytopenia with severe thrombocytopenia. Code Visit Inpatient E&M: 79904 Init Hosp L3
[2017-10-04 18:05] LABS: Mucous, Urine 0 SEEN /hpf (<or=2+); Red Blood Cells-Urine 0 SEEN /hpf (0-5); Squamous Epithelial Cells - UA 0 SEEN /hpf (5-10)
[2017-10-04 18:10] LABS: Color, Urine Yellow (Yellow); Glucose, Dipstick Normal (Normal); Ketone-Dipstick Negative (Negative); Leukocyte Esterase-Dipstick 500 /ul (Negative); Nitrite-Dipstick Positive (Negative); Occult Blood-Urine 10 /ul (Negative); Protein-Dipstick Negative (Negative); Urine Bilirubin Dipstick Negative (Negative); Urine Clarity Clear (Clear); Urine Urobilinogen Normal (Normal); Urine pH 6.5 (5.0 - 8.0)
[2017-10-04] MEDS: 0.9% Normal Saline 1,000 ML 100 ML IV (18:19)
[2017-10-04] MEDS: Ceftriaxone 1 GM/50 ML BAG IV (18:19)
[2017-10-04 18:42] LABS: Bacteria 1+ /hpf (None Seen); White Blood Cells 0-5 SEEN /hpf (0-5)
--- NOTE | 2017-10-04 20:05 | RAD_ITS ---
STUDY: X-RAY CHEST REASON FOR EXAM: Female, 57 years old. Very confused. Shortness of breath. TECHNIQUE: AP portable COMPARISON: May 13, 2017 FINDINGS: There are low lung volumes. There is elevation of the right hemidiaphragm. No focal consolidation is seen. Normal size heart. Normal mediastinum and rebeca. Normal visualized pulmonary arteries. Normal visualized aortic arch and descending thoracic aorta. Normal visualized thoracic spine. Normal visualized ribs, clavicles, and shoulders. There is no demonstrated abnormality of the visualized soft tissue structures of the upper abdomen. RAD/Chest 1 View (Portable) IMPRESSION: No acute cardiopulmonary process. Electronically Signed: Payal Briggs MD at 19:13 EDT Tel , Service support ,
[2017-10-04 20:12] VITALS: BP 198/97; PULSE 95; RESP 20; TEMP 36.6; O2SAT 96
--- NOTE | 2017-10-04 20:30 | NURSING ---
Lactulose enema at this time with assist of 2 aides. Patient combative and confused. Did not retain fluid. Daughter upset with staff for holding patient to side to administer edema even after education
[2017-10-04] MEDS: Lactulose 20 GM/30 ML UDC 200 GM RECTAL (20:36)
[2017-10-05] VITALS (9 sets, daily range): BP systolic 107–162; BP diastolic 57–109; PULSE 74–97; RESP 18; TEMP 36.3–37.2; O2SAT 94–99
[2017-10-05] MEDS: LORazepam 2 MG/ML Syringe 1 MG IV (00:12)
[2017-10-05] MEDS: 0.9% Normal Saline 1,000 ML 100 ML IV (04:04)
[2017-10-05] MEDS: Lactulose 20 GM/30 ML UDC PO ×3 (05:24→17:18)
[2017-10-05] MEDS: Metoprolol Tartrate 25 MG Tablet PO ×3 (05:25→21:24)
--- NOTE | 2017-10-05 05:32 | NURSING ---
4 RN's attempted IV access @ this time.
[2017-10-05 06:24] LABS: Absolute Lymphocyte Count 0.59 X10^3/ul (0.83-4.51); Absolute Neutrophil Count 3.6 X10^3/uL (2.0-7.7); Basophil# 0.02 X10^3/uL; Basophil% 0.4 % (0-1); Eosinophil# 0.34 X10^3/uL; Hematocrit 31.6 % (37-47); Hemoglobin 10.5 g/dl (12.0-15.0); Lymphocyte # 0.59 X10^3/ul (4.0); Lymphocyte % 12.2 % (19-41); Mean Corp Hgb Conc 33.2 g/gl (32-36); Mean Corpuscular Hgb 30.9 pg (27.0-32.0); Mean Corpuscular Volume 92.9 fL (81-99); Mean Platelet Vol. 9.7 fl (6.2-12.0); Monocyte# 0.34 X10^3/uL; Neutrophil # 3.55 X10^3/uL (2.7-7.7); Neutrophil % 73.2 % (47-70); Platelet Count 46 K/mm3 (150-450); RBC Distribution Width CV 17.3 % (11.6-14.6); RBC Distribution Width SD 58.6 fl (35.1-43.9); White Blood Count 4.9 K/mm3 (4.4-11.0)
[2017-10-05 06:29] LABS: Differential Indicated SCAN CRITERIA MET; POSITIVE COUNT YES; POSITIVE DIFFERENTIAL YES; POSITIVE MORPHOLOGY NO
[2017-10-05 06:34] LABS: AST(SGOT) 86 U/L (15-37); Alanine Aminotransfer ALT/SGPT 42 U/L (13-56); Albumin, Serum 1.7 g/dL (3.2-5.0); Alkaline Phosphatase 116 U/L (45-117); Anion Gap 7 (5-15); BUN 21 mg/dL (7-18); BUN/Creat Ratio 18.8 RATIO (10-20); Bilirubin, Direct 1.23 mg/dL (0.00-0.30); Calcium,Total 7.8 mg/dL (8.5-10.1); Chloride 114 mmol/L (98-107); Creatinine, Serum 1.12 mg/dL (0.55-1.02); EST Glomerular Filtration Rate 53 mL/min (>60); Est Glom Filt Rate - Afr Amer 64 mL/min (>60); Globulin 5.2 g/dL (2.2-4.2); Glucose 88 mg/dL (74-106); Protein, Total 6.9 g/dL (6.4-8.2); Sodium Level 144 mmol/L (136-145)
[2017-10-05 06:50] LABS: Differential Comment SCANNED
[2017-10-05 06:51] LABS: Platelet Estimate MKD DEC (ADEQ)
[2017-10-05 07:35] LABS: Partial Thromboplast Time 45.2 Seconds (24.1-36.2)
--- NOTE | 2017-10-05 07:56 | US_ITS ---
PROCEDURE: ULTRASOUND GUIDED PARACENTESIS CLINICAL HISTORY: Female, 57 years old. ASCITES CONSENT: The risks, benefits and alternatives to the procedure were explained to the patient, and the patient agreed to the procedure and signed the consent. SEDATION: Local Anesthesia STERILE BARRIER TECHNIQUE: The following sterile barrier precautions were used during the procedure: hand hygiene; use of 2% chlorhexidine aseptic; use of a cap, mask, sterile gown, sterile gloves, sterile full body drape, and a large sterile sheet. PROCEDURE/TECHNIQUE: The risks, benefits, and alternatives to the procedure were explained to patient, and the patient agreed to the procedure and signed a consent form for the procedure. TECHNIQUE: Under the ultrasound guidance using sterile technique and after infiltration of the skin and subcutaneous soft tissues with 10 mL of lidocaine 1% a 5 Serbian drainage catheter is introduced in the lower part of the abdomen. 5100 mL of fluid were removed sample sent to lab for evaluation. The patient tolerated the procedure there was no immediate complication. FINDINGS: FLUID PRE-PROCEDURE There is posterior enhancement. The findings appear anechoic. There is no loculation. FLUID POST-PROCEDURE Amount of fluid drained: 5100 ml. US/Paracentesis with US IMPRESSION: Successful ultrasound-guided paracentesis. Electronically Signed: Rosa Kirk MD at 16:13 EDT Tel , Service support ,
--- NOTE | 2017-10-05 09:28 | PCM.PN.HOSP ---
Patient Problems: Active and Suspected Problems Ascites (Acute) Hepatic encephalopathy (Acute) Subjective: Still confused but better, according to the patient's daughter at bedside. Vitals/I&O's: Vital Signs Temp Pulse Resp BP Pulse Ox 36.6 C 97 18 162/109 H 94 10/05/17 04:50 10/05/17 05:25 10/05/17 04:50 10/05/17 04:50 10/05/17 08:09 Oxygen Delivery Method Room Air Weight: 86.7 kg Body Mass Index (BMI) 32.8 Finger Stick Blood Glucose 108 Intake and Output for Last 24 Hours 10/03/17 10/04/17 10/05/17 23:59 23:59 23:59 Intake Total 152 / 152 783 / 783 Output Total 100 / 100 Balance 52 / 52 783 / 783 General: Confused, - - tearful. afebrile. HEENT: Atraumatic, Normocephalic Neck: No Nodes, Thyroid Normal Size and Texture Lungs: Clear to auscultation, Normal air movement, No rhonchi, No wheeze Cardiovascular: Regular rate, Regular Rhythm, Normal S1, Normal S2, No murmurs Abdomen: Bowel Sounds Present, Non Tender, Distended - but not taut. Skin: No rashes, No breakdown Psych/Mental Status: Agitated Laboratory Results 10/04/17 : Urine Color Yellow, Urine Clarity Clear, Urine pH 6.5, Ur Specific [place] 1.010, Urine Protein Negative, Urine Glucose (UA) Normal, Urine Ketones Negative, Urine Occult Blood 10 H, Urine Nitrite Positive H, Urine Bilirubin Negative, Urine Urobilinogen Normal, Ur Leukocyte Esterase 500 H, Urine RBC 0 SEEN, Urine WBC 0-5 SEEN, Ur Squamous Epith Cells 0 SEEN, Urine Bacteria 1+, Urine Mucus 0 SEEN 10/05/17 05:56: Sodium 144, Potassium 4.0, Chloride 114 H, Carbon Dioxide 23.0, Anion Gap 7, BUN 21 H, Creatinine 1.12 H, Estim Creat Clear Calc 46.70, Est GFR (MDRD) Af Amer 64, Est GFR (MDRD) Non-Af 53 L, BUN/Creatinine Ratio 18.8, Glucose 88, Calcium 7.8 L, Total Bilirubin 4.10 H, Direct Bilirubin 1.23 H, AST 86 H, ALT 42, Alkaline Phosphatase 116, Total Protein 6.9, Albumin 1.7 L, Globulin 5.2 H 10/05/17 05:56: WBC 4.9, RBC 3.40 L, Hgb 10.5 L, Hct 31.6 L, MCV 92.9, MCH 30.9, MCHC 33.2, RDW 17.3 H, RDW Differential 58.6 H, Plt Count 46 L*, MPV 9.7, Immature Gran % (Auto) 0.200, Neut % (Auto) 73.2 H, Lymph % (Auto) 12.2 L, Sullivan % (Auto) 7.0, Eos % (Auto) 7.0 H, Baso % (Auto) 0.4, Absolute Neuts (auto) 3.6, Absolute Lymphs (auto) 0.59 L, Total Counted Not Reportable, Differential Comment SCANNED, Diff Path Review October, Platelet Estimate MKD 10/05/17 07:10: PT 23.0 H, INR 2.0, APTT 45.2 H Current Medications Al Hydroxide/Mg Hydroxide (Mylanta Ii) 30 ml PO Q6H PRN PRN PRN Reason: Gastric burning Albuterol/Ipratropium (Duoneb) 3 ml INHALATION Q4H PRN PRN Reason: sob Ascorbic Acid (Vitamin C) 500 mg PO BIDCM BRINDA Atorvastatin Calcium (Lipitor) 40 mg PO QHS BRINDA Azathioprine (Imuran) 50 mg PO DAILY@0800 BRINDA Ferrous Gluconate (Ferrous Gluconate) 325 mg PO BIDCM BRINDA Furosemide (Lasix) 40 mg PO BIDLX [facility] Sodium Chloride () 1,000 mls @ 100 mls/hr IV .Q10H BRINDA Last Admin: 10/05/17 04:04 Dose: 100 mls/hr Meropenem 500 mg/ Sodium (Chloride) 60 mls @ 100 mls/hr IV Q6 BRINDA Last Admin: 10/05/17 05:42 Dose: 100 mls/hr Lactulose (Chronulac, Cephulac) 200 gm RECTAL Q8H PRN PRN Reason: IF NOT ABLE TO TAKE PO Last Admin: 10/04/17 20:36 Dose: 200 gm Lactulose (Chronulac, Cephulac) 20 gm PO Q6H BRINDA Last Admin: 10/05/17 05:24 Dose: 20 gm Magnesium Hydroxide (Milk Of Magnesia) 30 ml PO DAILY PRN PRN PRN Reason: Constipation Metoprolol Tartrate (Lopressor (Beta Eal)) 25 mg PO BID [facility] Last Admin: 10/05/17 05:25 Dose: 25 mg Ondansetron HCl (Zofran) 4 mg IV Q8H PRN PRN PRN Reason: NAUSEA Pantoprazole Sodium (Protonix) 40 mg PO DAILY [facility] Promethazine HCl (Phenergan) 12.5 mg IV Q6H PRN PRN PRN Reason: NAUSEA/VOMITING Rifaximin (Xifaxan) 550 mg PO BID [facility] Last Admin: 10/04/17 21:12 Dose: Not Given Sodium Bicarbonate (Sodium Bicarbonate) 1,300 mg PO BID [facility] Last Admin: 10/04/17 21:11 Dose: Not Given Sodium Chloride () 5 - 30 ml IV UD PRN PRN Reason: SALINE FLUSH Spironolactone (Aldactone) 150 mg PO DAILY [facility] Tramadol HCl (Ultram) 50 mg PO BID PRN PRN PRN Reason: PAIN Zinc Sulfate (Zinc Sulfate) [facility] Zolpidem Tartrate (Ambien (Generic)) 5 mg PO QHS PRN PRN PRN Reason: INSOMNIA Medical Necessity - Tobacco Use Smoking Status: Former smoker Assessment/Plan Active and Suspected Problems Ascites (Acute) Hepatic encephalopathy (Acute) 1. acute hepatic encephalopathy improved per patient's daughter continue lactulose follow up gastroenterology/hepatology given the frequency of these events, if the TIPS ought be removed continue rifaximin 2. Ascites: daughter states that the patient may not take her diuretics on days when she goes out, so she won't have to go to the restroom that often. continue lasix and aldactone. paracentesis today. DW Dr. Fox, he is aware and ok with platelets of 46 and INR of 2. will monitor hemoglobin doubt SBP, but will continue CTX. May dc abx if WBCs ok. 3. Cirrhosis MELD 21. Child-Francis 11 s/p TIPS on [facility] list at [facility] 4. DVT proph: SCDs. chemical prophylaxis contraindicated with coagulopathy and thrombocytopenia. Code Visit Inpatient E&M: 29800 Subs Hosp L2
--- NOTE | 2017-10-05 09:40 | PN_ITS ---
Patient Problems: Active and Suspected Problems Ascites (Acute) Hepatic encephalopathy (Acute) Subjective: Still confused but better, according to the patient's daughter at bedside. Vitals/I&O's: Vital Signs Temp Pulse Resp BP Pulse Ox 36.6 C 97 18 162/109 H 94 10/05/17 04:50 10/05/17 05:25 10/05/17 04:50 10/05/17 04:50 10/05/17 08:09 Oxygen Delivery Method Room Air Weight: 86.7 kg Body Mass Index (BMI) 32.8 Finger Stick Blood Glucose 108 Intake and Output for Last 24 Hours 10/03/17 10/04/17 10/05/17 23:59 23:59 23:59 Intake Total 152 / 152 783 / 783 Output Total 100 / 100 Balance 52 / 52 783 / 783 General: Confused, - - tearful. afebrile. HEENT: Atraumatic, Normocephalic Neck: No Nodes, Thyroid Normal Size and Texture Lungs: Clear to auscultation, Normal air movement, No rhonchi, No wheeze Cardiovascular: Regular rate, Regular Rhythm, Normal S1, Normal S2, No murmurs Abdomen: Bowel Sounds Present, Non Tender, Distended - but not taut. Skin: No rashes, No breakdown Psych/Mental Status: Agitated Laboratory Results 10/04/17 : Urine Color Yellow, Urine Clarity Clear, Urine pH 6.5, Ur Specific [place] 1.010, Urine Protein Negative, Urine Glucose (UA) Normal, Urine Ketones Negative, Urine Occult Blood 10 H, Urine Nitrite Positive H, Urine Bilirubin Negative, Urine Urobilinogen Normal, Ur Leukocyte Esterase 500 H, Urine RBC 0 SEEN, Urine WBC 0-5 SEEN, Ur Squamous Epith Cells 0 SEEN, Urine Bacteria 1+, Urine Mucus 0 SEEN 10/05/17 05:56: Sodium 144, Potassium 4.0, Chloride 114 H, Carbon Dioxide 23.0, Anion Gap 7, BUN 21 H, Creatinine 1.12 H, Estim Creat Clear Calc 46.70, Est GFR (MDRD) Af Amer 64, Est GFR (MDRD) Non-Af 53 L, BUN/Creatinine Ratio 18.8, Glucose 88, Calcium 7.8 L, Total Bilirubin 4.10 H, Direct Bilirubin 1.23 H, AST 86 H, ALT 42, Alkaline Phosphatase 116, Total Protein 6.9, Albumin 1.7 L, Globulin 5.2 H 10/05/17 05:56: WBC 4.9, RBC 3.40 L, Hgb 10.5 L, Hct 31.6 L, MCV 92.9, MCH 30.9 , MCHC 33.2, RDW 17.3 H, RDW Differential 58.6 H, Plt Count 46 L*, MPV 9.7, Immature Gran % (Auto) 0.200, Neut % (Auto) 73.2 H, Lymph % (Auto) 12.2 L, [place] % (Auto) 7.0, Eos % (Auto) 7.0 H, Baso % (Auto) 0.4, Absolute Neuts (auto) 3.6, Absolute Lymphs (auto) 0.59 L, Total Counted Not Reportable, Differential Comment SCANNED, Diff Path Review October, Platelet Estimate MKD 10/05/17 07:10: PT 23.0 H, INR 2.0, APTT 45.2 H Current Medications Al Hydroxide/Mg Hydroxide (Mylanta Ii) 30 ml PO Q6H PRN PRN PRN Reason: Gastric burning Albuterol/Ipratropium (Duoneb) 3 ml INHALATION Q4H PRN PRN Reason: sob Ascorbic Acid (Vitamin C) 500 mg PO BIDCM [facility] Atorvastatin Calcium (Lipitor) 40 mg PO QHS [facility] Azathioprine (Imuran) 50 mg PO DAILY@0800 [facility] Ferrous Gluconate (Ferrous Gluconate) 325 mg PO BIDCM [facility] Furosemide (Lasix) 40 mg PO BIDLX [facility] Sodium Chloride () 1,000 mls @ 100 mls/hr IV .Q10H [facility] Last Admin: 10/05/17 04:04 Dose: 100 mls/hr Meropenem 500 mg/ Sodium (Chloride) 60 mls @ 100 mls/hr IV Q6 [facility] Last Admin: 10/05/17 05:42 Dose: 100 mls/hr Lactulose (Chronulac, Cephulac) 200 gm RECTAL Q8H PRN PRN Reason: IF NOT ABLE TO TAKE PO Last Admin: 10/04/17 20:36 Dose: 200 gm Lactulose (Chronulac, Cephulac) 20 gm PO Q6H [facility] Last Admin: 10/05/17 05:24 Dose: 20 gm Magnesium Hydroxide (Milk Of Magnesia) 30 ml PO DAILY PRN PRN PRN Reason: Constipation Metoprolol Tartrate (Lopressor (Beta Ela)) 25 mg PO BID [facility] Last Admin: 10/05/17 05:25 Dose: 25 mg Ondansetron HCl (Zofran) 4 mg IV Q8H PRN PRN PRN Reason: NAUSEA Pantoprazole Sodium (Protonix) 40 mg PO DAILY [facility] Promethazine HCl (Phenergan) 12.5 mg IV Q6H PRN PRN PRN Reason: NAUSEA/VOMITING Rifaximin (Xifaxan) 550 mg PO BID [facility] Last Admin: 10/04/17 21:12 Dose: Not Given Sodium Bicarbonate (Sodium Bicarbonate) 1,300 mg PO BID [facility] Last Admin: 10/04/17 21:11 Dose: Not Given Sodium Chloride () 5 - 30 ml IV UD PRN PRN Reason: SALINE FLUSH Spironolactone (Aldactone) 150 mg PO DAILY [facility] Tramadol HCl (Ultram) 50 mg PO BID PRN PRN PRN Reason: PAIN Zinc S[facility] ([facility] Sulfate) [facility] Zolpidem Tartrate (Ambien (Generic)) 5 mg PO QHS PRN PRN PRN Reason: INSOMNIA Medical Necessity - Tobacco Use Smoking Status: Former smoker Assessment/Plan Active and Suspected Problems Ascites (Acute) Hepatic encephalopathy (Acute) 1. acute hepatic encephalopathy * improved per patient's daughter * continue lactulose * follow up gastroenterology/hepatology given the frequency of these events, if the TIPS ought be removed * continue rifaximin 2. Ascites: * daughter states that the patient may not take her diuretics on days when she goes out, so she won't have to go to the restroom that often. * continue lasix and aldactone. * paracentesis today. DW Dr. Fox, he is aware and ok with platelets of 46 and INR of 2. * will monitor hemoglobin * doubt SBP, but will continue CTX. May dc abx if WBCs ok. 3. Cirrhosis * MELD 21. * Child-Francis 13 * s/p TIPS * on transplant list at [facility] 4. DVT proph: SCDs. chemical prophylaxis contraindicated with coagulopathy and thrombocytopenia. Code Visit Inpatient E&M: 78674 Subs Hosp L2
[2017-10-05] MEDS: rifAXIMin 550 MG Tablet PO ×2 (09:49→21:25)
[2017-10-05] MEDS: Furosemide 40 MG Tablet PO ×2 (09:50→17:18)
[2017-10-05] MEDS: Sodium Bicarbonate 650 MG Tablet 1300 MG PO ×2 (09:50→21:24)
[2017-10-05] MEDS: Ferrous Gluconate 325 MG Tablet PO ×2 (09:51→17:19)
[2017-10-05] MEDS: azaTHIOprine 50 MG Tablet PO (09:51)
[2017-10-05] MEDS: Spironolactone 50 MG Tablet 150 MG PO (09:51)
[2017-10-05] MEDS: Pantoprazole Sodium 40 MG Tablet PO (09:52)
[2017-10-05] MEDS: Ascorbic Acid 500 MG Tablet PO ×2 (09:52→17:18)
[2017-10-05] MEDS: 0.9% NaCl Peripheral Flush Adult/Peds IV (12:35)
[2017-10-05 12:59] LABS: Body Fluid Mononuclear WBC # 0.105 10^3/uL; Body Fluid Mononuclear WBC % 81.4 %; Body Fluid Polynuclear WBC # 0.024 10^3/uL; Body Fluid Polynuclear WBC % 18.6 %; Body Fluid Total Cells Counted 0.142 10^3/ul (0.000-0.000); White Blood Count/Body Fluid 0.129 10^3/uL
[2017-10-05 13:08] LABS: Appearance/Body Fluid CLEAR; Auto B Fluid Analyzer BKGD Ct COUNTS W/IN LIMITS (W/IN LIMITS); Color/Body Fluid YELLOW; Source- Body Fluid OTHER
[2017-10-05 13:21] LABS: Red Cell Count/Body Fluid 320 /mm3
[2017-10-05 13:37] LABS: Lymphocytes 57 %; Macrophages 2 %; Mesothelial Cells 3 %; Monocytes 20 %; Neutrophil (Segs) 18 %
[2017-10-05 13:56] LABS: Glucose, Body Fluid 87 mg/dL (40-70); LDH,Body Fluid 65 Units/l (Not Establ.); Protein, Body Fluid 1.3 g/dL (Not Establ.)
--- NOTE | 2017-10-05 17:01 | CASEMGMT ---
Chart review completed. Patient direct admit from [facility] for confusion. Patient lives with daughter in 2 story home. DME consists of shower chair and walker. Patient has Medicare and Medicaid insurance. PCP is Dr. Vieyra. Patient is on transplant list at [facility]. Preferred pharmacy is [facility]. Patient has denied HHC in the past. RN CM will continue to follow patient and plan for a safe discharge. Will discuss CCN with patient and send referral if agreeable. Disposition Plan: Patient to discharge home with family support and follow-up plan in place. May benefit from CCN.
[2017-10-05] MEDS: Mag Hydrox/Al Hydrox/Simeth 30 ML UDC PO (17:17)
[2017-10-05] MEDS: proMETHazine 25 MG/ML Syringe 12.5 MG IV (17:34)
[2017-10-05] MEDS: Atorvastatin Calcium 40 MG Tablet PO (21:24)
[2017-10-06] VITALS (9 sets, daily range): BP systolic 90–104; BP diastolic 37–58; PULSE 64–70; RESP 14–18; TEMP 36.3–37.2; O2SAT 94–98
[2017-10-06] MEDS: Lactulose 20 GM/30 ML UDC PO ×5 (00:13→23:15)
[2017-10-06 07:18] LABS: Absolute Lymphocyte Count 0.96 X10^3/ul (0.83-4.51); Absolute Neutrophil Count 2.4 X10^3/uL (2.0-7.7); Basophil# 0.04 X10^3/uL; Basophil% 0.9 % (0-1); Eosinophil# 0.59 X10^3/uL; Eosinophils% 13.1 % (0-5); Hematocrit 27.4 % (37-47); Lymphocyte # 0.96 X10^3/ul (4.0); Lymphocyte % 21.2 % (19-41); Mean Corp Hgb Conc 32.8 g/gl (32-36); Mean Corpuscular Hgb 31.4 pg (27.0-32.0); Mean Corpuscular Volume 95.5 fL (81-99); Mean Platelet Vol. 9.7 fl (6.2-12.0); Monocyte# 0.56 X10^3/uL; Monocyte% 12.4 % (0-10); Neutrophil # 2.37 X10^3/uL (2.7-7.7); Neutrophil % 52.4 % (47-70); Platelet Count 49 K/mm3 (150-450); RBC Distribution Width CV 16.9 % (11.6-14.6); RBC Distribution Width SD 56.1 fl (35.1-43.9); Red Blood Count 2.87 M/mm3 (4.2-5.4); White Blood Count 4.5 K/mm3 (4.4-11.0)
[2017-10-06 07:25] LABS: International Normalized Ratio 2.2; Prothrombin Time (Protime)PT. 24.4 SECONDS (11.7-14.9)
[2017-10-06 07:30] LABS: Differential Indicated SCAN CRITERIA MET; POSITIVE COUNT YES; POSITIVE DIFFERENTIAL NO; POSITIVE MORPHOLOGY NO
[2017-10-06 07:37] LABS: ALB/GLOB Ratio 0.3 RATIO (0.9-2.4); AST(SGOT) 81 U/L (15-37); Alanine Aminotransfer ALT/SGPT 38 U/L (13-56); Albumin, Serum 1.3 g/dL (3.2-5.0); Alkaline Phosphatase 95 U/L (45-117); Anion Gap 8 (5-15); BUN 22 mg/dL (7-18); BUN/Creat Ratio 15.5 RATIO (10-20); Bilirubin, Direct 0.88 mg/dL (0.00-0.30); Calcium,Total 7.5 mg/dL (8.5-10.1); Chloride 117 mmol/L (98-107); Creatinine, Serum 1.42 mg/dL (0.55-1.02); EST Glomerular Filtration Rate 40 mL/min (>60); Est Glom Filt Rate - Afr Amer 49 mL/min (>60); Estimated Creatinine Clearance 36.84 ml/min; Globulin 4.4 g/dL (2.2-4.2); Glucose 91 mg/dL (74-106); Potassium 3.6 mmol/L (3.5-5.1); Protein, Total 5.7 g/dL (6.4-8.2); Sodium Level 148 mmol/L (136-145)
[2017-10-06 07:49] LABS: Platelet Estimate MKD DEC (ADEQ)
[2017-10-06] MEDS: rifAXIMin 550 MG Tablet PO ×2 (08:21→21:03)
[2017-10-06] MEDS: Ascorbic Acid 500 MG Tablet PO ×2 (08:21→17:04)
[2017-10-06] MEDS: Sodium Bicarbonate 650 MG Tablet 1300 MG PO ×2 (08:21→21:03)
[2017-10-06] MEDS: Spironolactone 50 MG Tablet 150 MG PO (08:24)
[2017-10-06] MEDS: Furosemide 40 MG Tablet PO ×2 (08:24→17:04)
[2017-10-06] MEDS: azaTHIOprine 50 MG Tablet PO (08:24)
[2017-10-06] MEDS: Metoprolol Tartrate 25 MG Tablet PO (08:25)
[2017-10-06] MEDS: Pantoprazole Sodium 40 MG Tablet PO (08:25)
[2017-10-06] MEDS: Ferrous Gluconate 325 MG Tablet PO ×2 (08:27→17:03)
--- NOTE | 2017-10-06 09:24 | PCM.PN.HOSP ---
Patient Problems: Active and Suspected Problems Ascites (Acute) Hepatic encephalopathy (Acute) Subjective: Still some abdominal pain. No said she is just feeling achy all over. Notes that her mental status is improved today. Vitals/I&O's: Vital Signs Temp Pulse Resp BP Pulse Ox 36.3 C L 64 16 103/58 L 97 10/06/17 08:39 10/06/17 08:39 10/06/17 08:39 10/06/17 08:39 10/06/17 08:39 Oxygen Delivery Method Room Air Weight: 86.7 kg Body Mass Index (BMI) 32.8 Finger Stick Blood Glucose 108 Intake and Output for Last 24 Hours 10/04/17 10/05/17 10/06/17 23:59 23:59 23:59 Intake Total 152 / 152 783 / 783 1544 / 1544 Output Total 100 / 100 Balance 52 / 52 783 / 783 1544 / 1544 General: Alert, - - Oriented to place. Does not know the date, but the daughter states that patient never no sedate even on her very good days. HEENT: Atraumatic, Normocephalic Neck: No Nodes, Thyroid Normal Size and Texture Lungs: Clear to auscultation, Normal air movement, No rhonchi, No wheeze Cardiovascular: Regular rate, Regular Rhythm, Normal S1, Normal S2, No murmurs Abdomen: Bowel Sounds Present, Soft, - - Tender palpation. Slightly distended. Extremities: No Calf Tenderness, Edema - Minimal lower extremity edema Skin: No rashes, No breakdown Musculoskeletal: No Tenderness to Palpation of Joints or Extremities, No Muscle Wasting Psych/Mental Status: Normal Affect, Appropriate Microbiology Past 72 Hours 10/04/17 Unknown Urine Catheter - Catheter Urine Culture - Final Escherichia coli 10/05/17 11:15 Fluid - Paracentesis (Abd) Gram Stain - Final Laboratory Results 10/05/17 11:15: Fluid Glucose 87 H, Fluid Total Protein 1.3, Fluid LDH 65 10/05/17 11:15: Fluid Amylase Pending 10/05/17 11:15: Fluid Source OTHER, Fluid Color YELLOW, Fluid Appearance CLEAR, Fluid WBC 0.129, Fluid RBC 320, Fluid Tot Cell Count 0.142 H, Fld Polynuclear WBCs # 0.024, Fld Polynuclear WBCs % 18.6, Fluid Mononuclear WBCs 0.105, Fld Mononuclear WBCs % 81.4, Fluid Neutrophils 18, Fluid Lymphocytes 57, Fluid Monocytes 20, Fluid Macrophages 2, Fld Mesothelial Cells 3, Fl Pathologist Comment May follow, Fluid Comment 2 SEE COMMENT 10/06/17 07:00: Sodium 148 H, Potassium 3.6, Chloride 117 H, Carbon Dioxide 23.0, Anion Gap 8, BUN 22 H, Creatinine 1.42 H, Estim Creat Clear Calc 36.84, Est GFR (MDRD) Af Amer 49 L, Est GFR (MDRD) Non-Af 40 L, BUN/Creatinine Ratio 15.5, Glucose 91, Calcium 7.5 L, Total Bilirubin 2.20 H, Direct Bilirubin 0.88 H, AST 81 H, ALT 38, Alkaline Phosphatase 95, Total Protein 5.7 L, Albumin 1.3 L, Globulin 4.4 H, Albumin/Globulin Ratio 0.3 L 10/06/17 07:00: WBC 4.5, RBC 2.87 L, Hgb 9.0 L, Hct 27.4 L, MCV 95.5, MCH 31.4, MCHC 32.8, RDW 16.9 H, RDW Differential 56.1 H, Plt Count 49 L*, MPV 9.7, Immature Gran % (Auto) 0.000, Neut % (Auto) 52.4, Lymph % (Auto) 21.2, [place] % (Auto) 12.4 H, Eos % (Auto) 13.1 H, Baso % (Auto) 0.9, Absolute Neuts (auto) 2.4, Absolute Lymphs (auto) 0.96, Total Counted Not Reportable, Platelet Estimate MKD 10/06/17 07:00: PT 24.4 H, INR 2.2 Current Medications Al Hydroxide/Mg Hydroxide (Mylanta Ii) 30 ml PO Q6H PRN PRN PRN Reason: Gastric burning Last Admin: 10/05/17 17:17 Dose: 30 ml Albuterol/Ipratropium (Duoneb) 3 ml INHALATION Q4H PRN PRN Reason: sob Ascorbic Acid (Vitamin C) 500 mg PO BIDCM [facility] Last Admin: 10/06/17 08:21 Dose: 500 mg Atorvastatin Calcium (Lipitor) 40 mg PO QHS [facility] Last Admin: 10/05/17 21:24 Dose: 40 mg Azathioprine (Imuran) 50 mg PO DAILY@0800 [facility] Last Admin: 10/06/17 08:24 Dose: 50 mg Ferrous Gluconate (Ferrous Gluconate) 325 mg PO BIDCM [facility] Last Admin: 10/06/17 08:27 Dose: 325 mg Furosemide (Lasix) 40 mg PO BIDLX [facility] Last Admin: 10/06/17 08:24 Dose: 40 mg Meropenem 500 mg/ Sodium (Chloride) 60 mls @ 100 mls/hr IV Q6 [facility] Last Admin: 10/06/17 05:56 Dose: 100 mls/hr Lactulose (Chronulac, Cephulac) 200 gm RECTAL Q8H PRN PRN Reason: IF NOT ABLE TO TAKE PO Last Admin: 10/04/17 20:36 Dose: 200 gm Lactulose (Chronulac, Cephulac) 20 gm PO Q6H [facility] Last Admin: 10/06/17 05:56 Dose: 20 gm Magnesium Hydroxide (Milk Of Magnesia) 30 ml PO DAILY PRN PRN PRN Reason: Constipation Metoprolol Tartrate (Lopressor (Beta Ela)) 25 mg PO BID [facility] Last Admin: 10/06/17 08:25 Dose: 25 mg Ondansetron HCl (Zofran) 4 mg IV Q8H PRN PRN PRN Reason: NAUSEA Pantoprazole Sodium (Protonix) 40 mg PO DAILY [facility] Last Admin: 10/06/17 08:25 Dose: 40 mg Promethazine HCl (Phenergan) 12.5 mg IV Q6H PRN PRN PRN Reason: NAUSEA/VOMITING Last Admin: 10/05/17 17:34 Dose: 12.5 mg Rifaximin (Xifaxan) 550 mg PO BID [facility] Last Admin: 10/06/17 08:21 Dose: 550 mg Sodium Bicarbonate (Sodium Bicarbonate) 1,300 mg PO BID [facility] Last Admin: 10/06/17 08:21 Dose: 1,300 mg Sodium Chloride () 5 - 30 ml IV UD PRN PRN Reason: SALINE FLUSH Last Admin: 10/05/17 12:35 Dose: 10 ml Spironolactone (Aldactone) 150 mg PO DAILY [facility] Last Admin: 10/06/17 08:24 Dose: 150 mg Zinc Sulf[facility] ([facility] Sulfate) [facility] Last Admin: 10/06/17 08:24 Dose: 220 mg Medical Necessity - Tobacco Use Smoking Status: Former smoker Assessment/Plan Active and Suspected Problems Ascites (Acute) Hepatic encephalopathy (Acute) 1. acute hepatic encephalopathy Clinically improved today. continue lactulose, daughter notes that the patient has not had any bowel movements but given patient's clinical improvement would actually continue with lactulose at current dosing for now. follow up gastroenterology/hepatology given the frequency of these events, if the TIPS ought be removed continue rifaximin 2. Ascites: daughter states that the patient may not take her diuretics on days when she goes out, so she won't have to go to the restroom that often. continue lasix and aldactone. drain 5100 cc on 10/05, will give albumin today. 3. Spontaneous bacterial peritonitis White cells were 250/mL. Will DC the meropenem and just put her on Rocephin for now. If patient does well then we will transition her over to ciprofloxacin on discharge 3. Cirrhosis MELD 21. Child-Francis 13 s/p TIPS on transplant list at [facility] 4. DVT proph: SCDs. chemical prophylaxis contraindicated with coagulopathy and thrombocytopenia. Code Visit Inpatient E&M: 20999 Subs Hosp L2
--- NOTE | 2017-10-06 09:34 | PN_ITS ---
Patient Problems: Active and Suspected Problems Ascites (Acute) Hepatic encephalopathy (Acute) Subjective: Still some abdominal pain. No said she is just feeling achy all over. Notes that her mental status is improved today. Vitals/I&O's: Vital Signs Temp Pulse Resp BP Pulse Ox 36.3 C L 64 16 103/58 L 97 10/06/17 08:39 10/06/17 08:39 10/06/17 08:39 10/06/17 08:39 10/06/17 08:39 Oxygen Delivery Method Room Air Weight: 86.7 kg Body Mass Index (BMI) 32.8 Finger Stick Blood Glucose 108 Intake and Output for Last 24 Hours 10/04/17 10/05/17 10/06/17 23:59 23:59 23:59 Intake Total 152 / 152 783 / 783 1544 / 1544 Output Total 100 / 100 Balance 52 / 52 783 / 783 1544 / 1544 General: Alert, - - Oriented to place. Does not know the date, but the daughter states that patient never no sedate even on her very good days. HEENT: Atraumatic, Normocephalic Neck: No Nodes, Thyroid Normal Size and Texture Lungs: Clear to auscultation, Normal air movement, No rhonchi, No wheeze Cardiovascular: Regular rate, Regular Rhythm, Normal S1, Normal S2, No murmurs Abdomen: Bowel Sounds Present, Soft, - - Tender palpation. Slightly distended. Extremities: No Calf Tenderness, Edema - Minimal lower extremity edema Skin: No rashes, No breakdown Musculoskeletal: No Tenderness to Palpation of Joints or Extremities, No Muscle Wasting Psych/Mental Status: Normal Affect, Appropriate Microbiology Past 72 Hours 10/04/17 Unknown Urine Catheter - Catheter Urine Culture - Final Escherichia coli 10/05/17 11:15 Fluid - Paracentesis (Abd) Gram Stain - Final Laboratory Results 10/05/17 11:15: Fluid Glucose 87 H, Fluid Total Protein 1.3, Fluid LDH 65 10/05/17 11:15: Fluid Amylase Pending 10/05/17 11:15: Fluid Source OTHER, Fluid Color YELLOW, Fluid Appearance CLEAR, Fluid WBC 0.129, Fluid RBC 320, Fluid Tot Cell Count 0.142 H, Fld Polynuclear WBCs # 0.024, Fld Polynuclear WBCs % 18.6, Fluid Mononuclear WBCs 0.105, Fld Mononuclear WBCs % 81.4, Fluid Neutrophils 18, Fluid Lymphocytes 57, Fluid Monocytes 20, Fluid Macrophages 2, Fld Mesothelial Cells 3, Fl Pathologist Comment May follow, Fluid Comment 2 SEE COMMENT 10/06/17 07:00: Sodium 148 H, Potassium 3.6, Chloride 117 H, Carbon Dioxide 23.0 , Anion Gap 8, BUN 22 H, Creatinine 1.42 H, Estim Creat Clear Calc 36.84, Est GFR (MDRD) Af Amer 49 L, Est GFR (MDRD) Non-Af 40 L, BUN/Creatinine Ratio 15.5, Glucose 91, Calcium 7.5 L, Total Bilirubin 2.20 H, Direct Bilirubin 0.88 H, AST 81 H, ALT 38, Alkaline Phosphatase 95, Total Protein 5.7 L, Albumin 1.3 L, Globulin 4.4 H, Albumin/Globulin Ratio 0.3 L 10/06/17 07:00: WBC 4.5, RBC 2.87 L, Hgb 9.0 L, Hct 27.4 L, MCV 95.5, MCH 31.4, MCHC 32.8, RDW 16.9 H, RDW Differential 56.1 H, Plt Count 49 L*, MPV 9.7, Immature Gran % (Auto) 0.000, Neut % (Auto) 52.4, Lymph % (Auto) 21.2, [place] % ( Auto) 12.4 H, Eos % (Auto) 13.1 H, Baso % (Auto) 0.9, Absolute Neuts (auto) 2.4 , Absolute Lymphs (auto) 0.96, Total Counted Not Reportable, Platelet Estimate MKD 10/06/17 07:00: PT 24.4 H, INR 2.2 Current Medications Al Hydroxide/Mg Hydroxide (Mylanta Ii) 30 ml PO Q6H PRN PRN PRN Reason: Gastric burning Last Admin: 10/05/17 17:17 Dose: 30 ml Albuterol/Ipratropium (Duoneb) 3 ml INHALATION Q4H PRN PRN Reason: sob Ascorbic Acid (Vitamin C) 500 mg PO BIDCM [facility] Last Admin: 10/06/17 08:21 Dose: 500 mg Atorvastatin Calcium (Lipitor) 40 mg PO QHS [facility] Last Admin: 10/05/17 21:24 Dose: 40 mg Azathioprine (Imuran) 50 mg PO DAILY@0800 [facility] Last Admin: 10/06/17 08:24 Dose: 50 mg Ferrous Gluconate (Ferrous Gluconate) 325 mg PO BIDCM [facility] Last Admin: 10/06/17 08:27 Dose: 325 mg Furosemide (Lasix) 40 mg PO BIDLX [facility] Last Admin: 10/06/17 08:24 Dose: 40 mg Meropenem 500 mg/ Sodium (Chloride) 60 mls @ 100 mls/hr IV Q6 [facility] Last Admin: 10/06/17 05:56 Dose: 100 mls/hr Lactulose (Chronulac, Cephulac) 200 gm RECTAL Q8H PRN PRN Reason: IF NOT ABLE TO TAKE PO Last Admin: 10/04/17 20:36 Dose: 200 gm Lactulose (Chronulac, Cephulac) 20 gm PO Q6H [facility] Last Admin: 10/06/17 05:56 Dose: 20 gm Magnesium Hydroxide (Milk Of Magnesia) 30 ml PO DAILY PRN PRN PRN Reason: Constipation Metoprolol Tartrate (Lopressor (Beta Ela)) 25 mg PO BID [facility] Last Admin: 10/06/17 08:25 Dose: 25 mg Ondansetron HCl (Zofran) 4 mg IV Q8H PRN PRN PRN Reason: NAUSEA Pantoprazole Sodium (Protonix) 40 mg PO DAILY [facility] Last Admin: 10/06/17 08:25 Dose: 40 mg Promethazine HCl (Phenergan) 12.5 mg IV Q6H PRN PRN PRN Reason: NAUSEA/VOMITING Last Admin: 10/05/17 17:34 Dose: 12.5 mg Rifaximin (Xifaxan) 550 mg PO BID [facility] Last Admin: 10/06/17 08:21 Dose: 550 mg Sodium Bicarbonate (Sodium Bicarbonate) 1,300 mg PO BID [facility] Last Admin: 10/06/17 08:21 Dose: 1,300 mg Sodium Chloride () 5 - 30 ml IV UD PRN PRN Reason: SALINE FLUSH Last Admin: 10/05/17 12:35 Dose: 10 ml Spironolactone (Aldactone) 150 mg PO DAILY [facility] Last Admin: 10/06/17 08:24 Dose: 150 mg Zinc Sulfate (Zinc Sulfate) [facility] Last Admin: 10/06/17 08:24 Dose: 220 mg Medical Necessity - Tobacco Use Smoking Status: Former smoker Assessment/Plan Active and Suspected Problems Ascites (Acute) Hepatic encephalopathy (Acute) 1. acute hepatic encephalopathy * Clinically improved today. * continue lactulose, daughter notes that the patient has not had any bowel movements but given patient's clinical improvement would actually continue with lactulose at current dosing for now. * follow up gastroenterology/hepatology given the frequency of these events, if the TIPS ought be removed * continue rifaximin 2. Ascites: * daughter states that the patient may not take her diuretics on days when she goes out, so she won't have to go to the restroom that often. * continue lasix and aldactone. * drain 5100 cc on 10/05, will give albumin today. 3. Spontaneous bacterial peritonitis * White cells were 250/mL. * Will DC the meropenem and just put her on Rocephin for now. If patient does well then we will transition her over to ciprofloxacin on discharge 3. Cirrhosis * MELD 21. * Child-Francis 13 * s/p TIPS * on transplant list at [facility] 4. DVT proph: SCDs. chemical prophylaxis contraindicated with coagulopathy and thrombocytopenia. Code Visit Inpatient E&M: 40714 Subs Hosp L2
[2017-10-06 09:41] LABS: Pathologist Comment/Body Fluid Reviewed
[2017-10-06 09:42] LABS: Pathologist Review Reviewed
[2017-10-06] MEDS: Atorvastatin Calcium 40 MG Tablet PO (21:03)
[2017-10-07 03:23] VITALS: BP 98/37; PULSE 71; RESP 14; TEMP 36.9; O2SAT 96
[2017-10-07 06:27] LABS: Absolute Lymphocyte Count 1.05 X10^3/ul (0.83-4.51); Basophil# 0.03 X10^3/uL; Basophil% 0.7 % (0-1); Eosinophils% 16.2 % (0-5); Hematocrit 26.8 % (37-47); Hemoglobin 8.8 g/dl (12.0-15.0); Lymphocyte # 1.05 X10^3/ul (4.0); Lymphocyte % 24.4 % (19-41); Mean Corp Hgb Conc 32.8 g/gl (32-36); Mean Corpuscular Hgb 30.4 pg (27.0-32.0); Mean Corpuscular Volume 92.7 fL (81-99); Mean Platelet Vol. 9.2 fl (6.2-12.0); Monocyte# 0.48 X10^3/uL; Monocyte% 11.1 % (0-10); Neutrophil # 2.04 X10^3/uL (2.7-7.7); Neutrophil % 47.4 % (47-70); RBC Distribution Width CV 17.4 % (11.6-14.6); RBC Distribution Width SD 58.4 fl (35.1-43.9); Red Blood Count 2.89 M/mm3 (4.2-5.4); White Blood Count 4.3 K/mm3 (4.4-11.0)
[2017-10-07 06:34] LABS: Differential Indicated SCAN CRITERIA MET; POSITIVE COUNT YES; POSITIVE DIFFERENTIAL NO; POSITIVE MORPHOLOGY NO; Platelet Count 45 K/mm3 (150-450)
--- NOTE | 2017-10-07 06:36 | NURSING ---
Lab called with platelet value of 45. Mariangel LEON aware.
[2017-10-07 06:41] LABS: International Normalized Ratio 2.1; Prothrombin Time (Protime)PT. 23.3 SECONDS (11.7-14.9)
[2017-10-07] MEDS: Lactulose 20 GM/30 ML UDC PO (06:51)
[2017-10-07 06:56] LABS: ALB/GLOB Ratio 0.3 RATIO (0.9-2.4); AST(SGOT) 86 U/L (15-37); Alanine Aminotransfer ALT/SGPT 38 U/L (13-56); Albumin, Serum 1.3 g/dL (3.2-5.0); Alkaline Phosphatase 100 U/L (45-117); Anion Gap 5 (5-15); BUN 22 mg/dL (7-18); BUN/Creat Ratio 14.9 RATIO (10-20); Calcium,Total 7.2 mg/dL (8.5-10.1); Chloride 115 mmol/L (98-107); Creatinine, Serum 1.48 mg/dL (0.55-1.02); EST Glomerular Filtration Rate 38 mL/min (>60); Est Glom Filt Rate - Afr Amer 46 mL/min (>60); Estimated Creatinine Clearance 35.34 ml/min; Globulin 4.1 g/dL (2.2-4.2); Glucose 99 mg/dL (74-106); Potassium 3.5 mmol/L (3.5-5.1); Protein, Total 5.4 g/dL (6.4-8.2); Sodium Level 146 mmol/L (136-145)
[2017-10-07 07:01] LABS: Differential Comment SCANNED; Platelet Estimate MOD DEC (ADEQ)
--- NOTE | 2017-10-07 08:17 | PCM.PN.HOSP ---
Patient Problems: Active and Suspected Problems Ascites (Acute) Hepatic encephalopathy (Acute) Subjective: Feeling better. No abdominal pain. Vitals/I&O's: Vital Signs Temp Pulse Resp BP Pulse Ox 36.9 C 71 14 98/37 L 96 10/07/17 03:23 10/07/17 03:23 10/07/17 03:23 10/07/17 03:23 10/07/17 03:23 Oxygen Delivery Method Room Air Weight: 86.7 kg Body Mass Index (BMI) 32.8 Finger Stick Blood Glucose 108 Intake and Output for Last 24 Hours 10/05/17 10/06/17 10/07/17 23:59 23:59 23:59 Intake Total 783 / 783 2394 / 2394 606.2 / 606.2 Balance 783 / 783 2394 / 2394 606.2 / 606.2 General: Alert, Cooperative, No apparent distress HEENT: Atraumatic, Normocephalic Neck: No Nodes, Thyroid Normal Size and Texture Lungs: Clear to auscultation, Normal air movement, No rhonchi, No wheeze Cardiovascular: Regular rate, Regular Rhythm, Normal S1, Normal S2, No murmurs Abdomen: Bowel Sounds Present, Soft, Non Tender, No Hepato-splenomegaly, Distended Extremities: No edema, No Calf Tenderness Psych/Mental Status: Normal Affect, Appropriate Microbiology Past 72 Hours 10/06/17 13:35 Mucosa - Nose Respiratory Panel (PCR) - Final 10/05/17 11:15 Fluid - Paracentesis (Abd) Gram Stain - Final 10/05/17 11:15 Fluid - Paracentesis (Abd) Body Fluid Culture - Preliminary No growth-Final to follow 10/04/17 Unknown Urine Catheter - Catheter Urine Culture - Final Escherichia coli Laboratory Results 10/05/17 05:56: Diff Path Review Reviewed 10/05/17 11:15: Fl Pathologist Comment Reviewed 10/07/17 06:15: WBC 4.3 L, RBC 2.89 L, Hgb 8.8 L, Hct 26.8 L, MCV 92.7, MCH 30.4, MCHC 32.8, RDW 17.4 H, RDW Differential 58.4 H, Plt Count 45 L*, MPV 9.2, Immature Gran % (Auto) 0.200, Neut % (Auto) 47.4, Lymph % (Auto) 24.4, [place] % (Auto) 11.1 H, Eos % (Auto) 16.2 H, Baso % (Auto) 0.7, Absolute Neuts (auto) 2.0, Absolute Lymphs (auto) 1.05, Total Counted Not Reportable, Differential Comment SCANNED, Diff Path Review October, Platelet Estimate MOD 10/07/17 06:15: PT 23.3 H, INR 2.1 10/07/17 06:15: Sodium 146 H, Potassium 3.5, Chloride 115 H, Carbon Dioxide 26.0, Anion Gap 5, BUN 22 H, Creatinine 1.48 H, Estim Creat Clear Calc 35.34, Est GFR (MDRD) Af Amer 46 L, Est GFR (MDRD) Non-Af 38 L, BUN/Creatinine Ratio 14.9, Glucose 99, Calcium 7.2 L, Total Bilirubin 1.10 H, AST 86 H, ALT 38, Alkaline Phosphatase 100, Total Protein 5.4 L, Albumin 1.3 L, Globulin 4.1, Albumin/Globulin Ratio 0.3 L Current Medications Al Hydroxide/Mg Hydroxide (Mylanta Ii) 30 ml PO Q6H PRN PRN PRN Reason: Gastric burning Last Admin: 10/05/17 17:17 Dose: 30 ml Albuterol/Ipratropium (Duoneb) 3 ml INHALATION Q4H PRN PRN Reason: sob Ascorbic [facility] ([facility]itamin C) [facility] Last Admin: 10/06/17 17:04 Dose: 500 mg Atorvastatin Calcium (Lipitor) 40 mg PO QHS [facility] Last Admin: 10/06/17 21:03 Dose: 40 mg Azathioprine (Imuran) 50 mg PO DAILY@0800 [facility] Last Admin: 10/06/17 08:24 Dose: 50 mg Ferrous Gluconate (Ferrous Gluconate) 325 mg PO BIDCM [facility] Last Admin: 10/06/17 17:03 Dose: 325 mg Furosemide (Lasix) 40 mg PO BIDLX [facility] Last Admin: 10/06/17 17:04 Dose: 40 mg Ceftriaxone Sodium 2 gm/ (Sodium Chloride) 50 mls @ 100 mls/hr IV Q24 [facility] Last Admin: 10/06/17 10:30 Dose: 100 mls/hr Lactulose (Chronulac, Cephulac) 200 gm RECTAL Q8H PRN PRN Reason: IF NOT ABLE TO TAKE PO Last Admin: 10/04/17 20:36 Dose: 200 gm Lactulose (Chronulac, Cephulac) 20 gm PO Q6H [facility] Last Admin: 10/07/17 06:51 Dose: 20 gm Magnesium Hydroxide (Milk Of Magnesia) 30 ml PO DAILY PRN PRN PRN Reason: Constipation Metoprolol Tartrate (Lopressor (Beta Ela)) 25 mg PO BID [facility] Last Admin: 10/06/17 22:53 Dose: Not Given Ondansetron HCl (Zofran) 4 mg IV Q8H PRN PRN PRN Reason: NAUSEA Pantoprazole Sodium (Protonix) 40 mg PO DAILY [facility] Last Admin: 10/06/17 08:25 Dose: 40 mg Promethazine HCl (Phenergan) 12.5 mg IV Q6H PRN PRN PRN Reason: NAUSEA/VOMITING Last Admin: 10/05/17 17:34 Dose: 12.5 mg Rifaximin (Xifaxan) 550 mg PO BID [facility] Last Admin: 10/06/17 21:03 Dose: 550 mg Sodium Bicarbonate (Sodium Bicarbonate) 1,300 mg PO BID [facility] Last Admin: 10/06/17 21:03 Dose: 1,300 mg Sodium Chloride () 5 - 30 ml IV UD PRN PRN Reason: SALINE FLUSH Last Admin: 10/05/17 12:35 Dose: 10 ml Spironolactone (Aldactone) 150 mg PO DAILY [facility] Last Admin: 10/06/17 08:24 Dose: 150 mg Zinc Sulfate (Zinc Sulfate) [facility] Last Admin: 10/06/17 08:24 Dose: 220 mg Medical Necessity - Tobacco Use Smoking Status: Former smoker Assessment/Plan Active and Suspected Problems Ascites (Acute) Hepatic encephalopathy (Acute) 1. acute hepatic encephalopathy Clinically improved today. continue lactulose, daughter notes that the patient has not had any bowel movements but given patient's clinical improvement would actually continue with lactulose at current dosing for now. follow up gastroenterology/hepatology given the frequency of these events, if the TIPS ought be removed continue rifaximin 2. Ascites: daughter states that the patient may not take her diuretics on days when she goes out, so she won't have to go to the restroom that often. continue lasix and aldactone. received 50 g albumin on 10/06 In the future, patient ought received 6-8 g albumin for every liter of ascites drained (if total over 5 liters) 3. Spontaneous bacterial peritonitis White cells were 250/mL. Will DC the meropenem and just put her on Rocephin for now. If patient does well then we will transition her over to ciprofloxacin on discharge. 3. Cirrhosis MELD 21. Child-Francis 13 s/p TIPS on transplant list at [facility] 4. DVT proph: SCDs. chemical prophylaxis contraindicated with coagulopathy and thrombocytopenia.
--- NOTE | 2017-10-07 08:24 | PN_ITS ---
Patient Problems: Active and Suspected Problems Ascites (Acute) Hepatic encephalopathy (Acute) Subjective: Feeling better. No abdominal pain. Vitals/I&O's: Vital Signs Temp Pulse Resp BP Pulse Ox 36.9 C 71 14 98/37 L 96 10/07/17 03:23 10/07/17 03:23 10/07/17 03:23 10/07/17 03:23 10/07/17 03:23 Oxygen Delivery Method Room Air Weight: 86.7 kg Body Mass Index (BMI) 32.8 Finger Stick Blood Glucose 108 Intake and Output for Last 24 Hours 10/05/17 10/06/17 10/07/17 23:59 23:59 23:59 Intake Total 783 / 783 2394 / 2394 606.2 / 606.2 Balance 783 / 783 2394 / 2394 606.2 / 606.2 General: Alert, Cooperative, No apparent distress HEENT: Atraumatic, Normocephalic Neck: No Nodes, Thyroid Normal Size and Texture Lungs: Clear to auscultation, Normal air movement, No rhonchi, No wheeze Cardiovascular: Regular rate, Regular Rhythm, Normal S1, Normal S2, No murmurs Abdomen: Bowel Sounds Present, Soft, Non Tender, No Hepato-splenomegaly, Distended Extremities: No edema, No Calf Tenderness Psych/Mental Status: Normal Affect, Appropriate Microbiology Past 72 Hours 10/06/17 13:35 Mucosa - Nose Respiratory Panel (PCR) - Final 10/05/17 11:15 Fluid - Paracentesis (Abd) Gram Stain - Final 10/05/17 11:15 Fluid - Paracentesis (Abd) Body Fluid Culture - Preliminary No growth-Final to follow 10/04/17 Unknown Urine Catheter - Catheter Urine Culture - Final Escherichia coli Laboratory Results 10/05/17 05:56: Diff Path Review Reviewed 10/05/17 11:15: Fl Pathologist Comment Reviewed 10/07/17 06:15: WBC 4.3 L, RBC 2.89 L, Hgb 8.8 L, Hct 26.8 L, MCV 92.7, MCH 30.4 , MCHC 32.8, RDW 17.4 H, RDW Differential 58.4 H, Plt Count 45 L*, MPV 9.2, Immature Gran % (Auto) 0.200, Neut % (Auto) 47.4, Lymph % (Auto) 24.4, [place] % ( Auto) 11.1 H, Eos % (Auto) 16.2 H, Baso % (Auto) 0.7, Absolute Neuts (auto) 2.0 , Absolute Lymphs (auto) 1.05, Total Counted Not Reportable, Differential Comment SCANNED, Diff Path Review October, Platelet Estimate MOD 10/07/17 06:15: PT 23.3 H, INR 2.1 10/07/17 06:15: Sodium 146 H, Potassium 3.5, Chloride 115 H, Carbon Dioxide 26.0 , Anion Gap 5, BUN 22 H, Creatinine 1.48 H, Estim Creat Clear Calc 35.34, Est GFR (MDRD) Af Amer 46 L, Est GFR (MDRD) Non-Af 38 L, BUN/Creatinine Ratio 14.9, Glucose 99, Calcium 7.2 L, Total Bilirubin 1.10 H, AST 86 H, ALT 38, Alkaline Phosphatase 100, Total Protein 5.4 L, Albumin 1.3 L, Globulin 4.1, Albumin/ Globulin Ratio 0.3 L Current Medications Al Hydroxide/Mg Hydroxide (Mylanta Ii) 30 ml PO Q6H PRN PRN PRN Reason: Gastric burning Last Admin: 10/05/17 17:17 Dose: 30 ml Albuterol/Ipratropium (Duoneb) 3 ml INHALATION Q4H PRN PRN Reason: sob Ascorbic Acid (Vitamin C) [facility] Last Admin: 10/06/17 17:04 Dose: 500 mg Atorvastatin Calcium (Lipitor) 40 mg PO QHS [facility] Last Admin: 10/06/17 21:03 Dose: 40 mg Azathioprine (Imuran) 50 mg PO DAILY@0800 [facility] Last Admin: 10/06/17 08:24 Dose: 50 mg Ferrous Gluconate (Ferrous Gluconate) 325 mg PO BIDCM [facility] Last Admin: 10/06/17 17:03 Dose: 325 mg Furosemide (Lasix) 40 mg PO BIDLX [facility] Last Admin: 10/06/17 17:04 Dose: 40 mg Ceftriaxone Sodium 2 gm/ (Sodium Chloride) 50 mls @ 100 mls/hr IV Q24 [facility] Last Admin: 10/06/17 10:30 Dose: 100 mls/hr Lactulose (Chronulac, Cephulac) 200 gm RECTAL Q8H PRN PRN Reason: IF NOT ABLE TO TAKE PO Last Admin: 10/04/17 20:36 Dose: 200 gm Lactulose (Chronulac, Cephulac) 20 gm PO Q6H [facility] Last Admin: 10/07/17 06:51 Dose: 20 gm Magnesium Hydroxide (Milk Of Magnesia) 30 ml PO DAILY PRN PRN PRN Reason: Constipation Metoprolol Tartrate (Lopressor (Beta Ela)) 25 mg PO BID [facility] Last Admin: 10/06/17 22:53 Dose: Not Given Ondansetron HCl (Zofran) 4 mg IV Q8H PRN PRN PRN Reason: NAUSEA Pantoprazole Sodium (Protonix) 40 mg PO DAILY [facility] Last Admin: 10/06/17 08:25 Dose: 40 mg Promethazine HCl (Phenergan) 12.5 mg IV Q6H PRN PRN PRN Reason: NAUSEA/VOMITING Last Admin: 10/05/17 17:34 Dose: 12.5 mg Rifaximin (Xifaxan) 550 mg PO BID [facility] Last Admin: 10/06/17 21:03 Dose: 550 mg Sodium Bicarbonate (Sodium Bicarbonate) 1,300 mg PO BID [facility] Last Admin: 10/06/17 21:03 Dose: 1,300 mg Sodium Chloride () 5 - 30 ml IV UD PRN PRN Reason: SALINE FLUSH Last Admin: 10/05/17 12:35 Dose: 10 ml Spironolactone (Aldactone) 150 mg PO DAILY [facility] Last Admin: 10/06/17 08:24 Dose: 150 mg Zinc Sulfate (Zinc Sulfate) [facility] Last Admin: 10/06/17 08:24 Dose: 220 mg Medical Necessity - Tobacco Use Smoking Status: Former smoker Assessment/Plan Active and Suspected Problems Ascites (Acute) Hepatic encephalopathy (Acute) 1. acute hepatic encephalopathy * Clinically improved today. * continue lactulose, daughter notes that the patient has not had any bowel movements but given patient's clinical improvement would actually continue with lactulose at current dosing for now. * follow up gastroenterology/hepatology given the frequency of these events, if the TIPS ought be removed * continue rifaximin 2. Ascites: * daughter states that the patient may not take her diuretics on days when she goes out, so she won't have to go to the restroom that often. * continue lasix and aldactone. * received 50 g albumin on 10/06 * In the future, patient ought received 6-8 g albumin for every liter of ascites drained (if total over 5 liters) 3. Spontaneous bacterial peritonitis * White cells were 250/mL. * Will DC the meropenem and just put her on Rocephin for now. If patient does well then we will transition her over to ciprofloxacin on discharge. 3. Cirrhosis * MELD 21. * Child-Francis 13 * s/p TIPS * on transplant list at [facility] 4. DVT proph: SCDs. chemical prophylaxis contraindicated with coagulopathy and thrombocytopenia.
--- NOTE | 2017-10-07 08:29 | PCM.DC ---
- Discharge Diagnoses Current Active Problems: Current Active and Chronic Problems Ascites (Acute) Hepatic encephalopathy (Acute) You will use the following diet at home:: Other - Low protein. Low salt. Your food should be the consistency of: Regular Your liquids should be the consistency of: Regular/Thin Discharge Activity: Return to Normal Activity Call your doctor if you observe: Fever of 101 or Higher, Shortness of breath, - - worsening confusion. worsening abdominal pain/distention. Allergies/Adverse Reactions: Allergies amoxicillin Allergy (Verified 08/22/17 00:47) Hives Fish Containing Products Allergy (Verified 08/22/17 00:47) Rash Iodinated Contrast- Oral and IV Dye [Iodinated Contrast Media - IV Dye] Allergy (Verified 08/22/17 00:47) Rash Penicillins [PCN] Allergy (Verified 08/22/17 00:47) Hives Medications to take at Discharge Albuterol Inhaler [Ventolin Hfa] 2 puff INHALATION Q6H PRN PRN 06/21/16 Atorvastatin Calcium [Lipitor] 40 mg PO QHS 06/21/16 Azathioprine [Imuran] 50 mg PO DAILY@0800 06/21/16 Calcium Carb/Vitamin D3/Vit K1 [Citracal Soft Chew] 1 each PO DAILY 06/21/16 Cyanocobalamin (Vitamin B-12) [Vitamin B-12] 50,000 mcg PO MOORE 06/21/16 Metoprolol Tartrate [Lopressor (beta harshil)] 25 mg PO BID 06/21/16 Ondansetron [Zofran Odt] 8 mg PO Q8H PRN PRN 06/21/16 Pantoprazole Sodium [Protonix] 40 mg PO DAILY 06/21/16 Sodium Bicarbonate 1,300 mg PO BID 06/21/16 Spironolactone [Aldactone] 150 mg PO DAILY 06/21/16 Zinc 50 mg PO DAILY 06/21/16 Melatonin 3 mg PO QHS 09/04/16 Furosemide [Lasix] 100 mg PO DAILY 11/02/16 traMADol [Ultram] 50 mg PO BID PRN PRN 02/14/17 Ascorbic Acid [Vitamin C] 500 mg PO BIDCM 07/12/17 Ferrous Gluconate 325 mg PO BIDCM 07/12/17 Calcium Carbonate 500 mg PO BID 10/04/17 Cholecalciferol (Vitamin D3) [Vitamin D3] 2,000 unit PO DAILY 10/04/17 Rifaximin [Xifaxan] 550 mg PO BID 10/04/17 Ciprofloxacin [Cipro] 500 mg PO BID #12 tab 10/07/17 Lactulose [Chronulac] 60 ml PO BID #0 10/07/17 The following prescriptions were given: Ciprofloxacin [Cipro] 500 mg PO BID #12 tab Primary Care Physician: Ayesha Vieyra MD [Primary Care Provider] - Within 2 Weeks Please Follow Up With: [facility] [employer] Saw Operator When: Appointment this month. Proposed Discharge Date: 10/07/17
--- NOTE | 2017-10-07 08:32 | PCM.DC.SUM ---
Discharge Date and Diagnosis - Problem List Patient Problems: Active and Suspected Problems Ascites (Acute) Hepatic encephalopathy (Acute) Date of Admission: 10/04/17 Date of Discharge: 10/07/17 - Primary Discharge Diagnosis Active and Suspected Problems Ascites (Acute) Hepatic encephalopathy (Acute) - Secondary Discharge Diagnosis Chronic Problems Iron deficiency (Chronic) Obesity (BMI 30-39.9) (Chronic) History of nephrolithiasis (Chronic) Coagulopathy (Chronic) Noncompliance (Chronic) HLD (hyperlipidemia) (Chronic) HTN (hypertension) (Chronic) CKD (chronic kidney disease) stage 3, GFR 30-59 ml/min (Chronic) Asthma (Chronic) 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 Electronically Signed: Payal Briggs MD at 19:13 EDT Tel , Service support , Paracentesis Ultrasound 10/05/17 07:56 IMPRESSION: Successful ultrasound-guided paracentesis. Electronically Signed: Rosa Kirk MD at 16:13 EDT Tel , Service support , Operations: None Procedures: None Summary of Care Provided: The patient is a 57 year old F presents with confusion prior episodes of hepatic encephalopathy. Patient was started on lactulose and continued on rifaximin. Patient's mental status improved. Comp getting her picture is that she had a urinary tract infection which was E. coli sensitive to ciprofloxacin. And patient may have also had spontaneous bacterial peritonitis. Patient did have 240 white cells per millimeter acute. Culture was negative. Patient will be on Cipro which will be due for for the UTI and also possible spontaneous bacterial peritonitis. Patient did have a paracentesis while she was here draining for roughly 5 L of fluid. Patient did receive albumin the following day 50 g. The patient does require further paracenteses in the future, then she would need likely colloid replacement particular if the fluid taken off is 5 L or greater. Patient will be discharged home today. I conferred with the patient and daughter, no home health care services required at this time. 1. acute hepatic encephalopathy Clinically improved today. continue lactulose, daughter notes that the patient has not had any bowel movements but given patient's clinical improvement would actually continue with lactulose at current dosing for now. follow up gastroenterology/hepatology given the frequency of these events, if the TIPS ought be removed continue rifaximin take an additional dose of lactulose if not having 2-3 loose BMs/day 2. Ascites: daughter states that the patient may not take her diuretics on days when she goes out, so she won't have to go to the restroom that often. continue lasix and aldactone. received 50 g albumin on 10/06 In the future, patient ought received 6-8 g albumin for every liter of ascites drained (if total over 5 liters) 3. Spontaneous bacterial peritonitis White cells were 250/mL. Will DC the meropenem and just put her on Rocephin for now. If patient does well then we will transition her over to ciprofloxacin on discharge. 3. Cirrhosis MELD 21. Child-Francis 13 s/p TIPS on transplant list at [facility] Discharge Diet: - - low protein. low salt. Discharge Activity: Return to Normal Activity Call your doctor if you observe: Fever of 101 or Higher, Shortness of breath, - - worsening confusion. worsening abdominal pain/distention. Home Medications: Medications to take at Discharge Albuterol Inhaler [Ventolin Hfa] 2 puff INHALATION Q6H PRN PRN 06/21/16 Atorvastatin Calcium [Lipitor] 40 mg PO QHS 06/21/16 Azathioprine [Imuran] 50 mg PO DAILY@0800 06/21/16 Calcium Carb/Vitamin D3/Vit K1 [Citracal Soft Chew] 1 each PO DAILY 06/21/16 Cyanocobalamin (Vitamin B-12) [Vitamin B-12] 50,000 mcg PO MOORE 06/21/16 Metoprolol Tartrate [Lopressor (beta harshil)] 25 mg PO BID 06/21/16 Ondansetron [Zofran Odt] 8 mg PO Q8H PRN PRN 06/21/16 Pantoprazole Sodium [Protonix] 40 mg PO DAILY 06/21/16 Sodium Bicarbonate 1,300 mg PO BID 06/21/16 Spironolactone [Aldactone] 150 mg PO DAILY 06/21/16 Zinc 50 mg PO DAILY 06/21/16 Melatonin 3 mg PO QHS 09/04/16 Furosemide [Lasix] 100 mg PO DAILY 11/02/16 traMADol [Ultram] 50 mg PO BID PRN PRN 02/14/17 Ascorbic Acid [Vitamin C] 500 mg PO BIDCM 07/12/17 Ferrous Gluconate 325 mg PO BIDCM 07/12/17 Calcium Carbonate 500 mg PO BID 10/04/17 Cholecalciferol (Vitamin D3) [Vitamin D3] 2,000 unit PO DAILY 10/04/17 Rifaximin [Xifaxan] 550 mg PO BID 10/04/17 Ciprofloxacin [Cipro] 500 mg PO BID #12 tab 10/07/17 Lactulose [Chronulac] 60 ml PO BID #0 10/07/17 Following Prescrptions Were Given to Patient: Ciprofloxacin [Cipro] 500 mg PO BID #12 tab Primary Care Physician: Ayesha Vieyra MD [Primary Care Provider] - Within 2 Weeks Please Follow Up With: [facility] Office Bookkeeper When: Appointment this month. Disposition: Home Minutes spent on discharge:: 32 Patient Condition:: Fair Medical Necessity - Tobacco Use Smoking Status: Former smoker Meaningful Use Info Meaningful Use Diagnoses (Choose all that apply): None applicable Code Visit Inpatient E&M: 98887 Disch Hosp
--- NOTE | 2017-10-07 08:36 | DS.PCM_ITS ---
Discharge Date and Diagnosis - Problem List Patient Problems: Active and Suspected Problems Ascites (Acute) Hepatic encephalopathy (Acute) Date of Admission: 10/04/17 Date of Discharge: 10/07/17 - Primary Discharge Diagnosis Active and Suspected Problems Ascites (Acute) Hepatic encephalopathy (Acute) - Secondary Discharge Diagnosis Chronic Problems Iron deficiency (Chronic) Obesity (BMI 30-39.9) (Chronic) History of nephrolithiasis (Chronic) Coagulopathy (Chronic) Noncompliance (Chronic) HLD (hyperlipidemia) (Chronic) HTN (hypertension) (Chronic) CKD (chronic kidney disease) stage 3, GFR 30-59 ml/min (Chronic) Asthma (Chronic) 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 Electronically Signed: Payal Briggs MD at 19:13 EDT Tel , Service support , Paracentesis Ultrasound 10/05/17 07:56 IMPRESSION: Successful ultrasound-guided paracentesis. Electronically Signed: Rosa Kirk MD at 16:13 EDT Tel , Service support , Operations: None Procedures: None Summary of Care Provided: The patient is a 57 year old F presents with confusion prior episodes of hepatic encephalopathy. Patient was started on lactulose and continued on rifaximin. Patient's mental status improved. Comp getting her picture is that she had a urinary tract infection which was E. coli sensitive to ciprofloxacin. And patient may have also had spontaneous bacterial peritonitis. Patient did have 240 white cells per millimeter acute. Culture was negative. Patient will be on Cipro which will be due for for the UTI and also possible spontaneous bacterial peritonitis. Patient did have a paracentesis while she was here draining for roughly 5 L of fluid. Patient did receive albumin the following day 50 g. The patient does require further paracenteses in the future, then she would need likely colloid replacement particular if the fluid taken off is 5 L or greater. Patient will be discharged home today. I conferred with the patient and daughter, no home health care services required at this time. 1. acute hepatic encephalopathy * Clinically improved today. * continue lactulose, daughter notes that the patient has not had any bowel movements but given patient's clinical improvement would actually continue with lactulose at current dosing for now. * follow up gastroenterology/hepatology given the frequency of these events, if the TIPS ought be removed * continue rifaximin * take an additional dose of lactulose if not having 2-3 loose BMs/day 2. Ascites: * daughter states that the patient may not take her diuretics on days when she goes out, so she won't have to go to the restroom that often. * continue lasix and aldactone. * received 50 g albumin on 10/06 * In the future, patient ought received 6-8 g albumin for every liter of ascites drained (if total over 5 liters) 3. Spontaneous bacterial peritonitis * White cells were 250/mL. * Will DC the meropenem and just put her on Rocephin for now. If patient does well then we will transition her over to ciprofloxacin on discharge. 3. Cirrhosis * MELD 21. * Child-Francis 13 * s/p TIPS * on transplant list at [facility] Discharge Diet: - - low protein. low salt. Discharge Activity: Return to Normal Activity Call your doctor if you observe: Fever of 101 or Higher, Shortness of breath, - - worsening confusion. worsening abdominal pain/distention. Home Medications: Medications to take at Discharge Albuterol Inhaler [Ventolin Hfa] 2 puff INHALATION Q6H PRN PRN 06/21/16 Atorvastatin Calcium [Lipitor] 40 mg PO QHS 06/21/16 Azathioprine [Imuran] 50 mg PO DAILY@0800 06/21/16 Calcium Carb/Vitamin D3/Vit K1 [Citracal Soft Chew] 1 each PO DAILY 06/21/16 Cyanocobalamin (Vitamin B-12) [Vitamin B-12] 50,000 mcg PO MOORE 06/21/16 Metoprolol Tartrate [Lopressor (beta harshil)] 25 mg PO BID 06/21/16 Ondansetron [Zofran Odt] 8 mg PO Q8H PRN PRN 06/21/16 Pantoprazole Sodium [Protonix] 40 mg PO DAILY 06/21/16 Sodium Bicarbonate 1,300 mg PO BID 06/21/16 Spironolactone [Aldactone] 150 mg PO DAILY 06/21/16 Zinc 50 mg PO DAILY 06/21/16 Melatonin 3 mg PO QHS 09/04/16 Furosemide [Lasix] 100 mg PO DAILY 11/02/16 traMADol [Ultram] 50 mg PO BID PRN PRN 02/14/17 Ascorbic Acid [Vitamin C] 500 mg PO BIDCM 07/12/17 Ferrous Gluconate 325 mg PO BIDCM 07/12/17 Calcium Carbonate 500 mg PO BID 10/04/17 Cholecalciferol (Vitamin D3) [Vitamin D3] 2,000 unit PO DAILY 10/04/17 Rifaximin [Xifaxan] 550 mg PO BID 10/04/17 Ciprofloxacin [Cipro] 500 mg PO BID #12 tab 10/07/17 Lactulose [Chronulac] 60 ml PO BID #0 10/07/17 Following Prescrptions Were Given to Patient: Ciprofloxacin [Cipro] 500 mg PO BID #12 tab Primary Care Physician: Ayesha Vieyra MD [Primary Care Provider] - Within 2 Weeks Please Follow Up With: [facility] When: Appointment this month. Disposition: Home Minutes spent on discharge:: 32 Patient Condition:: Fair Medical Necessity - Tobacco Use Smoking Status: Former smoker Meaningful Use Info Meaningful Use Diagnoses (Choose all that apply): None applicable Code Visit Inpatient E&M: 45653 Disch Hosp
[2017-10-07 09:28] LABS: Pathologist Review Reviewed
[2017-10-07 10:00] VITALS: BP 128/66; PULSE 73; RESP 16; TEMP 36.9; O2SAT 100
[2017-10-07 10:12] VITALS: PULSE 74
[2017-10-07] MEDS: Ascorbic Acid 500 MG Tablet PO (10:12)
[2017-10-07] MEDS: Metoprolol Tartrate 25 MG Tablet PO (10:12)
[2017-10-07] MEDS: Furosemide 40 MG Tablet PO (10:12)
[2017-10-07] MEDS: rifAXIMin 550 MG Tablet PO (10:12)
[2017-10-07] MEDS: azaTHIOprine 50 MG Tablet PO (10:12)
[2017-10-07] MEDS: Pantoprazole Sodium 40 MG Tablet PO (10:12)
[2017-10-07] MEDS: Spironolactone 50 MG Tablet 150 MG PO (10:12)
[2017-10-07] MEDS: Sodium Bicarbonate 650 MG Tablet 1300 MG PO (10:13)
[2017-10-07] MEDS: Ferrous Gluconate 325 MG Tablet PO (10:21)
[2017-10-07 11:41] LABS: Amylase Body Fluid 9 U/L (.)
[2017-10-07 14:36] LABS: Pathologist Review Reviewed
== END 2017-10-07 11:07 | disposition home or self-care (01) | DRG 441 ==
PROVIDERS: Admitting Provider Internal Medicine; Family Provider Internal Medicine; PCP Internal Medicine; Visit Provider Internal Medicine
DX: K72.00 Acute and subacute hepatic failure without coma (principal); K65.2 Spontaneous bacterial peritonitis; D68.9 Coagulation defect, unspecified; R18.8 Other ascites; D61.818 Other pancytopenia; N39.0 Urinary tract infection, site not specified; K74.60 Unspecified cirrhosis of liver; E78.5 Hyperlipidemia, unspecified; I12.9 Hypertensive chronic kidney disease with stage 1 through stage 4 chronic kidney disease, or unspecified chronic kidney disease; N18.3 Chronic kidney disease, stage 3 (moderate); K75.4 Autoimmune hepatitis; B96.20 Unspecified Escherichia coli [E. coli] as the cause of diseases classified elsewhere; Z76.82 Awaiting organ transplant status; Z87.442 Personal history of urinary calculi
CPT/HCPCS: 36415; 49083; 71045; 80048; 80053; 80076; 81001; 82150; 82248; 82945; 83615; 84157; 85025; 85610; 85730; 87070; 87075; 87077; 87086; 87088; 87186; 87205; 87633; 89050; J2185; J7030; J7040; P9047; A4216; J0696

== ENCOUNTER → 2017-11-24 10:51 | Outpatient (CLI) | payer MEDICARE, MEDICAID, SELFPAY ==
--- NOTE | 2017-11-24 11:49 | US_ITS ---
PROCEDURE: Ultrasound guided paracentesis. DATE OF EXAMINATION: November 24, 2017. INDICATION: Female, 57 years old. Ascites. PHYSICIAN: Cachorro Fox M.D. TECHNIQUE: The risks, benefits, and alternatives to the procedure were explained to the patient. The specific risks of bleeding, infection, and damage to bowel were detailed and accepted. Witnessed informed consent was obtained. The abdomen was ultrasonographically surveyed. An appropriate pocket of fluid was identified at the right lower quadrant. The skin were cleaned and prepped in the usual sterile fashion. Using ultrasound guidance, the peritoneal cavity was accessed with a 4-Italian paracentesis needle/catheter system. The trocar was removed. A total of 6800 ml of miguel angel-colored fluid were removed from the peritoneal cavity. The catheter was removed and a sterile dressing was applied. The procedure was well tolerated. US/Paracentesis with US IMPRESSION: Ultrasound guided paracentesis. Electronically Signed: Cachorro Fox MD at 13:55 EDT Tel [phone], Service support ,
[2017-11-24 12:01] LABS: International Normalized Ratio 1.7; Prothrombin Time (Protime)PT. 19.9 SECONDS (11.7-14.9)
[2017-11-24 12:42] VITALS: BP 126/56; PULSE 92; RESP 20; O2SAT 99
[2017-11-24 12:47] VITALS: BP 126/81; PULSE 92; RESP 18; O2SAT 97
[2017-11-24 13:12] VITALS: BP 122/58; PULSE 90; RESP 20; O2SAT 97
[2017-11-24 13:21] VITALS: BP 118/58; PULSE 97; RESP 20; O2SAT 97
--- NOTE | 2017-11-24 14:50 | NURSING ---
3800 ml medium miguel angel fluid drained.
== END ==
PROVIDERS: Family Provider Internal Medicine; PCP Internal Medicine; Visit Provider Internal Medicine
DX: K74.60 Unspecified cirrhosis of liver (principal); K75.4 Autoimmune hepatitis; D61.818 Other pancytopenia; R18.8 Other ascites
CPT/HCPCS: 36415; 49083; 85610

== ENCOUNTER 2019-08-19 01:47 | Emergency (ER) | payer MEDICARE, MEDICAID, SELFPAY ==
[2019-08-19] VITALS (7 sets, daily range): BP systolic 122–148; BP diastolic 69–87; PULSE 76–102; RESP 16–24; TEMP 36.4–36.6; O2SAT 93–99; BMI 32.9; BMI 35.3
--- NOTE | 2019-08-19 01:59 | ED.DCSUM_ITS ---
- ER Visit Summary Date of Service: 08/19/19 Chief Complaint: Nausea, vomiting and diarrhea History of Present Illness: The patient is a 59 F history of autoimmune hepatitis, hepatic encephalopathy and liver transplant. Also chronic anemia, renal insufficiency and prior kidney stones. Patient states she was feeling well until about 10 PM tonight. Started having nausea, vomiting and diarrhea. Denies melena. Denies hematemesis. Denies fever. She has had chills. No dysuria. Physical Examination: Older female no distress. Vital signs stable afebrile. She is emotionally anxious. H EENT exam unremarkable except dry mucous membranes. Neck nontender no lymphadenopathy. Lungs clear to auscultation bilaterally. Heart regular rhythm rate about 90. Abdomen is soft. Nondistended. Normal bowel sounds. No peritoneal signs. No signs of obstruction. Well-healed prior surgical incisions. Moving all 4 extremities. No edema. Neurologically she is awake alert with no focal motor deficits. She knows day, month, year and president 9 states. Test Results: CBC shows a white count 9. Hemoglobin 14. No bands. Chemistries show potassium of 5.5. Chloride of 118. Normal gap of 7. Glucose 157. BUN of 35 creatinine 1.21 which is her baseline. Liver enzymes unremarkable. Lipase is 63. Ammonia level normal at 35. Emergency Department Course and Treatment: Patient treated with IV fluids for dehydration. IV Zofran for nausea. Screening labs to be obtained. Clinically at this time she does not appear to have hepatic encephalopathy. Repeat exam at 3:20 AM patient had nausea and vomiting. She was given a second dose of Zofran to be reassessed. Patient was reassessed multiple times. She was also treated with Phenergan IV x2. On repeat exam at 5:59 AM she started to feel much better. She has been able to hold down water and ice. She feels comfortable being discharged home. Treatment Plan: Zofran as needed for nausea. Plenty of fluids. Increase diet slowly as tolerated. Return if feeling worse. I do not advise follow-up with primary care physician. Disposition: dc Impression: Acute nausea, vomiting and diarrhea Dehydration Status post liver transplant This note was generated with Patient Home Monitoringation software. It may contain incorrect words, spelling, and punctuation that were not noted in review of the chart prior to signing ED Disposition - Plan for ED Patient: Disposition: Home or Assisted Living Instructions: VOMITING AND DIARRHEA, Nonspecific (Adult) Prescriptions: Ondansetron [Zofran Odt] 4 mg PO Q8H PRN PRN #7 tab PRN Reason: Nausea Prescription Printed Referrals: Ayesha Vieyra MD [Primary Care Provider] - 1-2 Days if not improving Additional Instructions: Plenty of fluids and rest. Zofran as needed for nausea. Follow-up with your doctor if not improving or return to the emergency department if feeling worse.
--- NOTE | 2019-08-19 02:01 | ED.DEP ---
ED Disposition - Plan for ED Patient: Disposition: Home or Assisted Living Instructions: VOMITING AND DIARRHEA, Nonspecific (Adult) Prescriptions: Ondansetron [Zofran Odt] 4 mg PO Q8H PRN PRN #7 tab PRN Reason: Nausea Prescription Printed Referrals: Ayesha Vieyra MD [Primary Care Provider] - 1-2 Days if not improving Additional Instructions: Plenty of fluids and rest. Zofran as needed for nausea. Follow-up with your doctor if not improving or return to the emergency department if feeling worse.
[2019-08-19] MEDS: Ondansetron 4 MG/2 ML Vial IV ×2 (02:15→03:25)
[2019-08-19] MEDS: 0.9% Normal Saline 1,000 ML 1000 ML IV (02:15)
[2019-08-19 02:38] LABS: Absolute Lymphocyte Count 0.26 X10^3/uL (0.83-4.51); Absolute Neutrophil Count 7.9 X10^3/uL (2.0-7.7); Basophil# 0.03 X10^3/uL; Basophil% 0.3 % (0-1); Eosinophil# 1.01 X10^3/uL; Eosinophils% 10.7 % (0-5); Hematocrit 47.4 % (37-47); Hemoglobin 14.9 g/dL (12.0-15.0); Lymphocyte # 0.26 X10^3/ul (4.0); Lymphocyte % 2.7 % (19-41); Mean Corp Hgb Conc 31.4 g/dL (32-36); Mean Corpuscular Volume 88.9 fL (81-99); Mean Platelet Vol. 9.8 fl (6.2-12.0); Monocyte# 0.29 X10^3/uL; Monocyte% 3.1 % (0-10); NRBC Flagged by Analyzer 0 % (0-5); Neutrophil # 7.85 X10^3/uL (2.7-7.7); Neutrophil % 82.8 % (47-70); POSITIVE DIFFERENTIAL YES; POSITIVE MORPHOLOGY YES; Platelet Count 135 K/mm3 (150-450); RBC Distribution Width CV 14.3 % (11.6-14.6); RBC Distribution Width SD 45.2 fl (35.1-43.9); Red Blood Count 5.33 M/mm3 (4.2-5.4); White Blood Count 9.5 K/mm3 (4.4-11.0)
[2019-08-19 02:41] LABS: ALB/GLOB Ratio 1.1 RATIO (0.9-2.4); AST(SGOT) 45 U/L (15-37); Alanine Aminotransfer ALT/SGPT 21 U/L (13-56); Albumin, Serum 3.9 g/dL (3.2-5.0); Alkaline Phosphatase 118 U/L (45-117); Anion Gap 7 (5-15); BUN 35 mg/dL (7-18); BUN/Creat Ratio 28.9 RATIO (10-20); Calcium,Total 8.9 mg/dL (8.5-10.1); Chloride 118 mmol/L (98-107); Creatinine, Serum 1.21 mg/dL (0.55-1.02); EST Glomerular Filtration Rate 48 mL/min (>60); Est Glom Filt Rate - Afr Amer 58 mL/min (>60); Estimated Creatinine Clearance 42.16 ml/min; Globulin 3.6 g/dL (2.2-4.2); Glucose 159 mg/dL (74-106); Lipase 63 U/L (73-393); Potassium 5.5 mmol/L (3.5-5.1); Protein, Total 7.5 g/dL (6.4-8.2); Sodium Level 143 mmol/L (136-145)
[2019-08-19 03:30] LABS: Differential Indicated SCAN CRITERIA MET
[2019-08-19] MEDS: proMETHazine 25 MG/ML Syringe 12.5 MG IV ×2 (03:44→04:53)
--- NOTE | 2019-08-19 04:42 | NURSING ---
emesis x1 at this time. aware.
--- NOTE | 2019-08-19 05:44 | NURSING ---
PER DR BUCKNER, SEPSIS SCREENING DC'D.
--- NOTE | 2019-08-19 06:58 | NURSING ---
PT WAS DC'D AWAITING RIDE. WHEN THIS RN WENT TO HELP HER INTO WHEELCHAIR SHE BEGAN VOMITING AGAIN. DR BUCKNER NOTIFIED. NEW ORDERS ENTERED.
[2019-08-19] MEDS: Ondansetron ODT 4 MG Tablet PO (07:01)
== END 2019-08-19 07:12 | disposition home or self-care (01) ==
PROVIDERS: Emergency Provider Emergency Medicine; PCP Internal Medicine
DX: R11.2 Nausea with vomiting, unspecified (principal); R19.7 Diarrhea, unspecified; E86.0 Dehydration; Z94.4 Liver transplant status; Z87.442 Personal history of urinary calculi; K75.4 Autoimmune hepatitis; D64.9 Anemia, unspecified
CPT/HCPCS: 80053; 82140; 83690; 85025; 96361; 96374; 96375; 96376; 99285; J2405

== ENCOUNTER 2020-11-22 09:37 | Emergency (ER) | payer MEDICARE, MEDICAID, SELFPAY ==
[2019-08-19 01:48] VITALS: BMI 35.3
[2020-11-22 09:38] VITALS: BP 209/135; PULSE 86; RESP 16; TEMP 35.9; O2SAT 96; BMI 40.7
--- NOTE | 2020-11-22 10:17 | CT_ITS ---
HISTORY: Kidney Stone. TECHNIQUE: Helically acquired images were obtained of the abdomen and pelvis without oral or IV contrast as per renal stone protocol. A radiation dose optimization technique was used for this scan. # of images incl. paperwork: 503. COMPARISON: 09/04/2016. FINDINGS: LUNG BASES: Minimal atelectasis or scarring. BOWEL: Bowel including appendix nondilated. Colonic diverticulosis without inflammation. PERITONEUM: No significant ascites. LIVER/BILIARY TRACT: Suture at the margin of the liver likely related to liver transplant. Surgically absent gallbladder. SPLEEN: Calcified granulomas and mild capsular calcification. Borderline splenomegaly. PANCREAS: No peripancreatic inflammation. Coiling adjacent to the pancreatic head again noted. KIDNEYS AND URETERS: Punctate bilateral renal calculi without hydronephrosis. No obstructing ureterolithiasis. Small left upper pole cyst. ADRENAL GLANDS: Non-enlarged. VESSELS: No abdominal aortic aneurysm. Atherosclerosis of the aorta and its major branches. PELVIC ORGANS: Unremarkable. ABDOMINAL WALL: Fat-containing left ventral hernia. Anterior scarring. BONES: Degenerative change and osteopenia. Minimal chronic compression fractures of L3 and L4. Unchanged anterolisthesis of L3-4 and retrolisthesis of L4-5. CT/Abdomen/Pelvis without Cont IMPRESSION: Punctate nonobstructing bilateral renal calculi. Colonic diverticulosis without acute diverticulitis. Right upper quadrant postoperative change. Individualized dose optimization techniques were used for this CT. at 1254 Reported and signed by: Leilani Quinonez MD Electronically Signed: Leilani Quinonez MD at 12:53 EDT Tel , Service support ,
--- NOTE | 2020-11-22 10:52 | EX.ED.DYSGE1 ---
HPI History of Present Illness Chief Complaint: Flank Pain Informant: patient Onset/Context/Timing Onset: Yesterday Context: Gradual Onset Timing: Continuous Quality: Sharp Location: Left flank Worsened by: Ambulation Relieved by: Tylenol, laying flat Narrative Narrative: Patient presents with left flank pain that began yesterday. Patient states the pain is worse over her left low back area. Patient denies any radiation of the pain. Patient states her pain is worse with ambulation. Patient states that her pain improves with Tylenol and with laying flat. Patient describes her pain as sharp. Patient denies any history of kidney stones but states her daughter has a history of kidney stones. Patient denies any dysuria or hematuria. Patient admits to some nausea but denies any vomiting. Prior similar symptoms: No PFSH PFSH Medical History (Updated 11/22/20 @ 13:[address] Tez Hernandez, DO) Former smoker Hypothyroidism Kidney disease Home Medications albuterol sulfate [Ventolin HFA] 2 puff INHALATION Q6H PRN PRN 06/21/16 [History Last Taken Unknown] atorvastatin 40 mg PO QHS 06/21/16 [History Last Taken 10/03/17] azathioprine 50 mg PO DAILY@0800 06/21/16 [History Last Taken 10/03/17] calcium-vitamin D3-vitamin K [Citracal-D3 Soft Chew] 1 ea PO DAILY 06/21/16 [History Last Taken 10/03/17] cyanocobalamin (vitamin B-12) [Vitamin B-12] 50,000 mcg PO MOORE 06/21/16 [History Last Taken 10/02/17] metoprolol tartrate 25 mg PO BID 06/21/16 [History Last Taken 10/03/17] ondansetron 8 mg PO Q8H PRN PRN 06/21/16 [History Last Taken 07/12/17] pantoprazole 40 mg PO DAILY 06/21/16 [History Last Taken 10/03/17] sodium bicarbonate 1,300 mg PO BID 06/21/16 [History Last Taken 10/03/17] spironolactone 150 mg PO DAILY 06/21/16 [History Last Taken 10/02/17] zinc 50 mg PO DAILY 06/21/16 [History Last Taken 10/03/17] melatonin 3 mg PO QHS 09/04/16 [History Last Taken 10/02/17] furosemide 100 mg PO DAILY 11/02/16 [History Last Taken 10/02/17] tramadol 50 mg PO BID PRN PRN 02/14/17 [History Last Taken 10/03/17] ascorbic acid (vitamin C) [Vitamin C] 500 mg PO BIDCM 07/12/17 [History Last Taken 07/11/17] ferrous gluconate 325 mg PO BIDCM 07/12/17 [History Last Taken 10/03/17] calcium carbonate 500 mg PO BID 10/04/17 [History Last Taken Unknown] cholecalciferol (vitamin D3) [Vitamin D3] 2,000 unit PO DAILY 10/04/17 [History Last Taken 10/03/17] rifaximin [Xifaxan] 550 mg PO BID 10/04/17 [History Last Taken 10/03/17] ciprofloxacin HCl 500 mg PO BID #12 tab 10/07/17 [Rx Last Taken Unknown] lactulose 60 ml PO BID #0 10/07/17 [Rx Last Taken 10/02/17] aspirin 81 mg PO DAILY 08/19/19 [History Last Taken Unknown] mycophenolate mofetil 500 mg PO BID 08/19/19 [History Last Taken Unknown] ondansetron 4 mg PO Q8H PRN PRN #7 tab 08/19/19 [Rx Last Taken Unknown] prednisone 5 mg PO DAILY 08/19/19 [History Last Taken Unknown] simvastatin 20 mg PO QHS 08/19/19 [History Last Taken Unknown] sulfamethoxazole-trimethoprim 1 ea PO MOWEFR 08/19/19 [History Last Taken Unknown] tacrolimus 0.5 mg PO Q12H 08/19/19 [History Last Taken Unknown] tacrolimus 3 mg PO Q12H 08/19/19 [History Last Taken Unknown] ursodiol 250 mg PO BID 08/19/19 [History Last Taken Unknown] Allergy/AdvReac Type Severity Reaction Status Date / Time amoxicillin Allergy Hives Verified 11/22/20 09:38 Fish Containing Products Allergy Rash Verified 11/22/20 09:38 Iodinated Contrast Media Allergy Rash Verified 11/22/20 09:38 [Iodinated Contrast Media - IV Dye] Penicillins [PCN] Allergy Hives Verified 11/22/20 09:38 Surgical History History of herniorrhaphy Liver transplant recipient Social History Smoking Status: Former smoker ROS ROS ED Constitutional Constitutional ED: Denies chills or fever(s) Eyes Eyes: Denies blurry vision or change in vision ENT ENT ED: Denies rhinorrhea or sore throat Cardiovascular Cardiovascular: Denies chest pain or palpitations Respiratory/Chest Respiratory/Chest: Denies cough or dyspnea Gastrointestinal Gastrointestinal: Denies nausea or vomiting Genitourinary Genitourinary ED: Denies dysuria or hematuria Musculoskeletal Musculoskeletal: Denies back pain or neck pain Integumentary Denies abscess or rash Neurologic Neurologic: Denies headache(s) or weakness Allergic/Immunologic Allergic/Immunologic ED: Denies mouth swelling or urticaria EXAM Physical Exam Const Vital Signs: 11/22/20 09:38 11/22/20 12:13 Temperature 96.7 F L 98.4 F Temperature Source Temporal Oral Pulse Rate 86 71 Respiratory Rate 16 16 Blood Pressure 209/135 H 171/93 H Blood Pressure Mean 159 119 Pulse Ox 96 97 Oxygen Delivery Method Room Air Room Air Positive well nourished, well developed and obese General Appearance ED: well developed Nutritional Appearance: obese HEENT Reports moist mucous membranes Neck supple and no JVD Resp normal respiratory effort and clear to auscultation bilaterally Cardio regular rate and regular rhythm GI normal to inspection, nondistended, normoactive bowel sounds and non-tender Palpation: soft Back/Spine General Back: CVA tenderness left Neuro oriented x3, CN's II-XII intact bilaterally and no sensory deficits noted Sensorium / Orientation: alert Motor Exam: strength 5/5 throughout Psych mental status grossly normal MDM MDM MDM Narrative Medical decision making narrative: CBC and basic metabolic profile were obtained and were essentially within normal limits. Urinalysis does not show any evidence of urinary tract infection. CT scan of the abdomen pelvis was obtained. There are nonobstructing bilateral renal calculi. There is no ureteral calculus. There is no hydronephrosis. There is diverticulosis but no diverticulitis. Patient was advised of her findings. Patient was instructed to continue Tylenol as needed for pain. Patient was instructed to follow-up with her primary care physician in 5 to 7 days. Patient understood and was agreeable with the plan. All questions were answered. Lab Data Attestation: I reviewed the patient's lab results. Labs: Laboratory Results - last 24 hr 11/22/20 11/22/20 11/22/20 11:35 12:45 12:45 WBC 4.5 RBC 4.72 Hgb 13.0 Hct 42.0 MCV 89.0 MCH 27.5 MCHC 31.0 L RDW Std Deviation 42.8 RDW Coeff of Tyrell 13.2 Plt Count 138 L MPV 9.2 Immature Gran % (Auto) 0.700 Neut % (Auto) 82.7 H Lymph % (Auto) 9.8 L [place] % (Auto) 5.3 Eos % (Auto) 1.3 Baso % (Auto) 0.2 Absolute Neuts (auto) 3.7 Absolute Lymphs (auto) 0.44 L Nucleated RBC % 0 Differential Comment SCANNED Sodium 142 Potassium 5.3 H Chloride 111 H Carbon Dioxide 25.0 Anion Gap 6 BUN 29 H Creatinine 1.63 H Estim Creat Clear Calc 29.60 Est GFR (MDRD) Af Amer 41 L Est GFR (MDRD) Non-Af 34 L BUN/Creatinine Ratio 17.8 Glucose 131 H Calcium 9.2 Urine Color Yellow Urine Clarity Clear Urine pH 7.0 Ur Specific [place] 1.010 Urine Protein Negative Urine Glucose (UA) Normal Urine Ketones Negative Urine Occult Blood 25 H Urine Nitrite Negative Urine Bilirubin Negative Urine Urobilinogen Normal Ur Leukocyte Esterase Negative Urine RBC 0-5 SEEN Urine WBC 0 SEEN Ur Squamous Epith Cells 0 SEEN Urine Bacteria 0 SEEN Urine Mucus 0 SEEN Radiography Diagnostic Testing: Radiology Impression Abdomen/Pelvis CT 11/22/20 10:17 IMPRESSION: Punctate nonobstructing bilateral renal calculi. Colonic diverticulosis without acute diverticulitis. Right upper quadrant postoperative change. Individualized dose optimization techniques were used for this CT. at 1254 Reported and signed by: Leilani Quinonez MD Electronically Signed: Leilani Quinonez MD at 12:53 EDT Tel , Service support , Discharge Plan Triage Chief Complaint: Flank Pain ED Provider: Tez Hernandez Dx/Rx/DC Orders Clinical Impression: Acute left flank pain Instructions: ED Flank Pain, Uncertain Cause Prescriptions: No Action atorvastatin 40 MG tablet 40 mg PO QHS RF: 0 cyanocobalamin (vitamin B-12) [Vitamin B-12] 1,000 MCG tablet 50,000 mcg PO MOORE RF: 0 azathioprine 50 MG tablet 50 mg PO DAILY@0800 RF: 0 sodium bicarbonate 650 MG tablet 1,300 mg PO BID RF: 0 pantoprazole 40 MG tablet 40 mg PO DAILY RF: 0 zinc 50 MG tablet 50 mg PO DAILY RF: 0 albuterol sulfate [Ventolin HFA] 1 INHALER inhaler 2 puff inhalation Q6H PRN PRN (Reason: Sob &/Or Wheezing) RF: 0 ondansetron 4 MG tablet 8 mg PO Q8H PRN PRN (Reason: Nausea/Vomiting) RF: 0 spironolactone 50 MG tablet 150 mg PO DAILY RF: 0 metoprolol tartrate 25 MG tablet 25 mg PO BID RF: 0 calcium-vitamin D3-vitamin K [Citracal-D3 Soft Chew] 1 EACH Tab.Chew 1 ea PO DAILY RF: 0 melatonin 3 MG tablet 3 mg PO QHS RF: 0 furosemide 40 MG tablet 100 mg PO DAILY RF: 0 tramadol 50 MG tablet 50 mg PO BID PRN PRN (Reason: Pain) RF: 0 ascorbic acid (vitamin C) [Vitamin C] 500 MG tablet 500 mg PO BIDCM RF: 0 ferrous gluconate 325 MG tablet 325 mg PO BIDCM RF: 0 calcium carbonate 500 MG tablet 500 mg PO BID RF: 0 cholecalciferol (vitamin D3) [Vitamin D3] 2,000 UNIT capsule 2,000 unit PO DAILY RF: 0 rifaximin [Xifaxan] 550 MG tablet 550 mg PO BID RF: 0 ciprofloxacin HCl 500 MG tablet 500 mg PO BID Qty: 12 RF: 0 lactulose 20 GM/30 ML Udc 60 ml PO BID Qty: 0 RF: 0 mycophenolate mofetil 250 MG capsule 500 mg PO BID RF: 0 prednisone 5 MG tablet 5 mg PO DAILY RF: 0 sulfamethoxazole-trimethoprim 1 EACH tablet 1 ea PO MOWEFR RF: 0 aspirin 81 MG tablet,delayed release (DR/EC) 81 mg PO DAILY RF: 0 simvastatin 20 MG tablet 20 mg PO QHS RF: 0 ursodiol 250 MG tablet 250 mg PO BID RF: 0 tacrolimus 1 MG capsule 3 mg PO Q12H RF: 0 tacrolimus 0.5 MG capsule 0.5 mg PO Q12H RF: 0 ondansetron 4 MG tablet 4 mg PO Q8H PRN PRN (Reason: Nausea) Qty: 7 RF: 0 Primary Care Provider: Aeysha Vieyra Referrals: Ayesha Vieyra MD [Primary Care Provider] - 3-5 Days Disposition Disposition: Home, self care
[2020-11-22 11:50] LABS: Bacteria 0 SEEN /hpf (None Seen); Mucous, Urine 0 SEEN /hpf (<or=2+); Squamous Epithelial Cells - UA 0 SEEN /hpf (5-10); White Blood Cells 0 SEEN /hpf (0-5)
[2020-11-22 11:55] LABS: Color, Urine Yellow (Yellow); Glucose, Dipstick Normal (Normal); Ketone-Dipstick Negative (Negative); Leukocyte Esterase-Dipstick Negative /ul (Negative); Nitrite-Dipstick Negative (Negative); Occult Blood-Urine 25 /ul (Negative); Protein-Dipstick Negative (Negative); Urine Bilirubin Dipstick Negative (Negative); Urine Clarity Clear (Clear); Urine Urobilinogen Normal (Normal)
[2020-11-22 12:03] LABS: Red Blood Cells-Urine 0-5 SEEN /hpf (0-5)
[2020-11-22 12:13] VITALS: BP 171/93; PULSE 71; RESP 16; TEMP 36.9; O2SAT 97
[2020-11-22] MEDS: Ondansetron ODT 4 MG Tablet PO (12:38)
[2020-11-22] MEDS: Morphine 4 MG/ML Syringe SC (12:38)
[2020-11-22 12:58] LABS: Absolute Lymphocyte Count 0.44 X10^3/uL (0.83-4.51); Absolute Neutrophil Count 3.7 X10^3/uL (2.0-7.7); Basophil# 0.01 X10^3/uL; Basophil% 0.2 % (0-1); Eosinophil# 0.06 X10^3/uL; Eosinophils% 1.3 % (0-5); Lymphocyte # 0.44 X10^3/ul (0.83-4.51); Lymphocyte % 9.8 % (19-41); Mean Corpuscular Hgb 27.5 pg (27.0-32.0); Mean Platelet Vol. 9.2 fl (6.2-12.0); Monocyte# 0.24 X10^3/uL; Monocyte% 5.3 % (0-10); NRBC Flagged by Analyzer 0 % (0-5); Neutrophil # 3.73 X10^3/uL (2.7-7.7); Neutrophil % 82.7 % (47-70); POSITIVE DIFFERENTIAL YES; Platelet Count 138 K/mm3 (150-450); RBC Distribution Width CV 13.2 % (11.6-14.6); RBC Distribution Width SD 42.8 fl (35.1-43.9); Red Blood Count 4.72 M/mm3 (4.2-5.4); White Blood Count 4.5 K/mm3 (4.4-11.0)
[2020-11-22 13:03] LABS: Anion Gap 6 (5-15); BUN 29 mg/dL (7-18); BUN/Creat Ratio 17.8 RATIO (10-20); Calcium,Total 9.2 mg/dL (8.5-10.1); Chloride 111 mmol/L (98-107); Creatinine, Serum 1.63 mg/dL (0.55-1.02); EST Glomerular Filtration Rate 34 mL/min (>60); Est Glom Filt Rate - Afr Amer 41 mL/min (>60); Glucose 131 mg/dL (74-106); Potassium 5.3 mmol/L (3.5-5.1); Sodium Level 142 mmol/L (136-145)
[2020-11-22 13:06] LABS: Differential Indicated SCAN CRITERIA MET
[2020-11-22 13:34] LABS: Differential Comment SCANNED
[2020-11-22 14:43] VITALS: BP 202/97; PULSE 84; RESP 16; O2SAT 96
== END 2020-11-22 14:49 | disposition home or self-care (01) ==
PROVIDERS: Emergency Provider Emergency Medicine; PCP Internal Medicine
DX: R10.9 Unspecified abdominal pain (principal); N20.0 Calculus of kidney; K57.30 Diverticulosis of large intestine without perforation or abscess without bleeding; E66.9 Obesity, unspecified; Z87.891 Personal history of nicotine dependence; E03.9 Hypothyroidism, unspecified; Z79.52 Long term (current) use of systemic steroids; Z79.82 Long term (current) use of aspirin; Z87.442 Personal history of urinary calculi
CPT/HCPCS: 74176; 80048; 81001; 85025; 96361; 96372; 96374; 96375; 99282; J7030

== ENCOUNTER 2021-06-26 19:24 | Inpatient (IN) | payer MEDICARE, MEDICAID, SELFPAY ==
[2021-06-26 19:25] VITALS: BP 110/90; PULSE 101; RESP 24; TEMP 36.8; O2SAT 91; BMI 41.1
[2021-06-26 19:35] VITALS: O2SAT 83
--- NOTE | 2021-06-26 20:16 | EDS_ITS ---
HPI History of Present Illness Chief Complaint: Nausea/Vomiting Informant: patient Onset/Context/Timing Onset: Weeks (3) Context: Gradual Onset Timing: Continuous Quality: Sharp Location: Abdomen, chest Worsened by: Vomiting Relieved by: Nothing Narrative Narrative: Patient presents with nausea and vomiting for the past 3 weeks. Patient states she has been able to keep some liquids down. Patient states she has been unable to keep any food down for the past 3 weeks. Patient states she has sharp pain in her chest and abdomen whenever she vomits. Patient also admits to some diarrhea. Patient denies any hematemesis or coffee-ground emesis. Patient denies any melena or hematochezia. Patient is a liver transplant recipient. [facility] Medical History Former smoker Hypothyroidism Kidney disease Home Medications albuterol sulfate [Ventolin HFA] 2 puff INHALATION Q6H PRN PRN 06/21/16 [History Last Taken Unknown] azathioprine 50 mg PO DAILY@0800 06/21/16 [History Last Taken 10/03/17] calcium-vitamin D3-vitamin K [Citracal-D3 Soft Chew] 1 ea PO DAILY 06/21/16 [History Last Taken 10/03/17] cyanocobalamin (vitamin B-12) [Vitamin B-12] 50,000 mcg PO MOORE 06/21/16 [History Last Taken 10/02/17] ondansetron 8 mg PO Q8H PRN PRN 06/21/16 [History Last Taken 07/12/17] pantoprazole 40 mg PO DAILY 06/21/16 [History Last Taken 10/03/17] zinc 50 mg PO DAILY 06/21/16 [History Last Taken 10/03/17] melatonin 3 mg PO QHS 09/04/16 [History Last Taken 10/02/17] furosemide 100 mg PO DAILY 11/02/16 [History Last Taken 10/02/17] tramadol 50 mg PO BID PRN PRN 02/14/17 [History Last Taken 10/03/17] ascorbic acid (vitamin C) [Vitamin C] 500 mg PO BIDCM 07/12/17 [History Last Taken 07/11/17] ferrous gluconate 325 mg PO BIDCM 07/12/17 [History Last Taken 10/03/17] Xifaxan 550 mg PO BID 10/04/17 [History Last Taken 10/03/17] calcium carbonate 500 mg PO BID 10/04/17 [History Last Taken Unknown] cholecalciferol (vitamin D3) [Vitamin D3] 2,000 unit PO DAILY 10/04/17 [History Last Taken 10/03/17] lactulose 60 ml PO BID #0 10/07/17 [Rx Last Taken 10/02/17] aspirin 81 mg PO DAILY 08/19/19 [History Last Taken Unknown] mycophenolate mofetil 500 mg PO BID 08/19/19 [History Last Taken Unknown] ondansetron 4 mg PO Q8H PRN PRN #7 tab 08/19/19 [Rx Last Taken Unknown] prednisone 5 mg PO DAILY 08/19/19 [History Last Taken Unknown] simvastatin 20 mg PO QHS 08/19/19 [History Last Taken Unknown] sulfamethoxazole-trimethoprim 1 ea PO MOWEFR 08/19/19 [History Last Taken Unknown] tacrolimus 0.5 mg PO Q12H 08/19/19 [History Last Taken Unknown] tacrolimus 2 mg PO Q12H 08/19/19 [History Last Taken Unknown] ursodiol 250 mg PO BID 08/19/19 [History Last Taken Unknown] levothyroxine 88 mcg PO DAILY 06/26/21 [History Last Taken Unknown] nitrofurantoin monohyd/m-cryst 100 mg PO Q12 #14 capsule 06/26/21 [Rx Last Taken Unknown] Allergy/AdvReac Type Severity Reaction Status Date / Time amoxicillin Allergy Hives Verified 06/26/21 19:28 Fish Containing Products Allergy Rash Verified 06/26/21 19:28 Iodinated Contrast Media Allergy Rash Verified 06/26/21 19:28 [Iodinated Contrast Media - IV Dye] Penicillins [PCN] Allergy Hives Verified 06/26/21 19:28 Surgical History History of herniorrhaphy Liver transplant recipient Social History Smoking Status: Former smoker ROS ROS ED Constitutional Constitutional ED: Denies chills or fever(s) Eyes Eyes: Denies blurry vision or change in vision ENT ENT ED: Reports rhinorrhea; Denies sore throat Cardiovascular Cardiovascular: Reports chest pain; Denies palpitations Respiratory/Chest Respiratory/Chest: Reports cough; Denies dyspnea Gastrointestinal Gastrointestinal: Reports diarrhea, nausea and vomiting Genitourinary Genitourinary ED: Denies dysuria or hematuria Musculoskeletal Musculoskeletal: Reports back pain and myalgias; Denies neck pain Integumentary Denies abscess or rash Neurologic Neurologic: Reports headache(s); Denies weakness Allergic/Immunologic Allergic/Immunologic ED: Denies mouth swelling or urticaria EXAM Physical Exam Const Vital Signs: 06/26/21 19:25 06/26/21 19:35 06/26/21 20:36 Temperature 98.2 F Temperature Source Temporal Pulse Rate 101 H Respiratory Rate 24 H Blood Pressure 110/90 H Blood Pressure Mean 96 Pulse Ox 91 83 Oxygen Delivery Method Room Air Room Air Nasal Cannula Oxygen Flow Rate (L/min) 3 06/26/21 21:36 06/26/21 23:06 06/26/21 23:43 Temperature Temperature Source Pulse Rate 77 80 83 Respiratory Rate 24 H 2 L 24 H Blood Pressure 149/80 H 143/83 H Blood Pressure Mean 103 103 Pulse Ox 96 95 90 Oxygen Delivery Method Nasal Cannula Nasal Cannula Nasal Cannula Oxygen Flow Rate (L/min) 3 3 6 06/26/21 23:58 Temperature 97.2 F L Temperature Source Temporal Pulse Rate 84 Respiratory Rate 18 Blood Pressure 96/72 Blood Pressure Mean 80 Pulse Ox 92 Oxygen Delivery Method Nasal Cannula Oxygen Flow Rate (L/min) 6 Positive well nourished and well developed General Appearance ED: well developed HEENT Reports moist mucous membranes Neck supple and no JVD Resp normal respiratory effort and clear to auscultation bilaterally Cardio regular rate, regular rhythm and no murmurs GI normal to inspection, nondistended, normoactive bowel sounds Palpation: soft and tender epigastric, LUQ and RUQ; Negative for guarding or rebound tenderness present Extremity normal to inspection General Extremety ED: Negative for edema or tenderness General Extremity: Negative for edema Neuro oriented x3, CN's II-XII intact bilaterally and no sensory deficits noted Sensorium / Orientation: alert Motor Exam: strength 5/5 throughout Psych mental status grossly normal Skin no rashes or lesions noted MDM MDM MDM Narrative Medical decision making narrative: Agreeable with the plan. All questions were answered. Patient understands and is agreeable with the plan. All questions were answered.Patient was given a small fluid bolus. Patient was given morphine and Zofran. CBC was within normal limits. Comprehensive metabolic profile showed a BUN of 35 and creatinine of 1.68. This is consistent with prior results. PT was INR and PTT were within normal limits. Lipase was normal. Urinalysis shows leukocyte Estrace of 100 with positive nitrites. There were 5- 10 white blood cells. Patient was given a dose of Macrobid here. Patient was given a prescription for Macrobid. Patient was advised of her findings. COVID- 19 PCR was ordered and is pending. Patient does not meet criteria for monoclonal antibody therapy since her symptoms have been present for 3 weeks. Patient is not normally on home oxygen. When her oxygen was removed, her oxygen saturations dropped into the 70s on room air. Patient was placed back on oxygen and it was titrated up. Portable chest x-ray was obtained. There is 1 view. On my interpretation, there are bilateral lower lobe infiltrates. Radiologist interpretation is pending. Case was discussed with the hospitalist. He will admit the patient to his service. Lab Data Attestation: I reviewed the patient's lab results. Labs: Laboratory Results - last 24 hr 06/26/21 06/26/21 06/26/21 19:55 19:55 19:55 WBC 3.5 L RBC 5.42 H Hgb 14.7 Hct 46.9 MCV 86.5 MCH 27.1 MCHC 31.3 L RDW Std Deviation 46.2 H RDW Coeff of Tyrell 14.6 Plt Count 101 L MPV 10.7 Immature Gran % (Auto) 0.300 Neut % (Auto) 70.2 H Lymph % (Auto) 16.2 L [place] % (Auto) 13.0 H Eos % (Auto) 0.0 Baso % (Auto) 0.3 Absolute Neuts (auto) 2.4 Absolute Lymphs (auto) 0.56 L Nucleated RBC % 0 Differential Comment SCANNED Diff Path Review October foll PT 12.8 INR 1.0 APTT 30.4 Sodium 138 Potassium 5.0 Chloride 109 H Carbon Dioxide 23.0 Anion Gap 6 BUN 35 H Creatinine 1.68 H Estim Creat Clear Calc 28.35 Est GFR (MDRD) Af Amer 40 L Est GFR (MDRD) Non-Af 33 L BUN/Creatinine Ratio 20.8 H Glucose 100 Calcium 8.9 Total Bilirubin 0.50 AST 45 H ALT 28 Alkaline Phosphatase 104 Total Protein 7.5 Albumin 3.4 Globulin 4.1 Albumin/Globulin Ratio 0.8 L Lipase 205 Urine Color Urine Clarity Urine pH Ur Specific [place] Urine Protein Urine Glucose (UA) Urine Ketones Urine Occult Blood Urine Nitrite Urine Bilirubin Urine Urobilinogen Ur Leukocyte Esterase Urine RBC Urine WBC Ur Squamous Epith Cells Urine Bacteria Urine Mucus 06/26/21 20:35 WBC RBC Hgb Hct MCV MCH MCHC RDW Std Deviation RDW Coeff of Tyrell Plt Count MPV Immature Gran % (Auto) Neut % (Auto) Lymph % (Auto) [place] % (Auto) Eos % (Auto) Baso % (Auto) Absolute Neuts (auto) Absolute Lymphs (auto) Nucleated RBC % Differential Comment Diff Path Review PT INR APTT Sodium Potassium Chloride Carbon Dioxide Anion Gap BUN Creatinine Estim Creat Clear Calc Est GFR (MDRD) Af Amer Est GFR (MDRD) Non-Af BUN/Creatinine Ratio Glucose Calcium Total Bilirubin AST ALT Alkaline Phosphatase Total Protein Albumin Globulin Albumin/Globulin Ratio Lipase Urine Color Yellow Urine Clarity Clear Urine pH 5.0 Ur Specific [place] 1.020 Urine Protein 30 H Urine Glucose (UA) Normal Urine Ketones 5 H Urine Occult Blood 150 H Urine Nitrite Positive H Urine Bilirubin Negative Urine Urobilinogen Normal Ur Leukocyte Esterase 100 H Urine RBC 0 SEEN Urine WBC 5-10 SEEN Ur Squamous Epith Cells 0-5 SEEN Urine Bacteria 0 SEEN Urine Mucus 0 SEEN Radiography Chest X-Ray - ED: 1 View, Read by ED Physician, Right Infiltrate and Left Infiltrate Discharge Plan Dx/Rx/DC Orders Clinical Impression: Hypoxia, Urinary tract infection Disposition Disposition: Acute Care Hospital [facility]
[2021-06-26] MEDS: Ondansetron 4 MG/2 ML Vial IV (20:34)
[2021-06-26] MEDS: Morphine 4 MG/ML Syringe IV (20:34)
[2021-06-26 20:39] LABS: Absolute Lymphocyte Count 0.56 X10^3/uL (0.83-4.51); Absolute Neutrophil Count 2.4 X10^3/uL (2.0-7.7); Basophil# 0.01 X10^3/uL; Basophil% 0.3 % (0-1); Hematocrit 46.9 % (37-47); Hemoglobin 14.7 g/dL (12.0-15.0); Lymphocyte # 0.56 X10^3/ul (0.83-4.51); Lymphocyte % 16.2 % (19-41); Mean Corp Hgb Conc 31.3 g/dL (32-36); Mean Corpuscular Hgb 27.1 pg (27.0-32.0); Mean Corpuscular Volume 86.5 fL (81-99); Mean Platelet Vol. 10.7 fl (6.2-12.0); Monocyte# 0.45 X10^3/uL; NRBC Flagged by Analyzer 0 % (0-5); Neutrophil # 2.42 X10^3/uL (2.7-7.7); Neutrophil % 70.2 % (47-70); POSITIVE DIFFERENTIAL YES; Platelet Count 101 K/mm3 (150-450); RBC Distribution Width CV 14.6 % (11.6-14.6); RBC Distribution Width SD 46.2 fl (35.1-43.9); Red Blood Count 5.42 M/mm3 (4.2-5.4); White Blood Count 3.5 K/mm3 (4.4-11.0)
[2021-06-26 20:41] LABS: Bacteria 0 SEEN /hpf (None Seen); Mucous, Urine 0 SEEN /hpf (<or=2+); Red Blood Cells-Urine 0 SEEN /hpf (0-5)
[2021-06-26 20:42] LABS: Prothrombin Time (Protime)PT. 12.8 SECONDS (11.7-14.9)
[2021-06-26 20:43] LABS: Color, Urine Yellow (Yellow); Glucose, Dipstick Normal (Normal); Ketone-Dipstick 5 mg/dl (Negative); Leukocyte Esterase-Dipstick 100 /ul (Negative); Nitrite-Dipstick Positive (Negative); Occult Blood-Urine 150 /ul (Negative); Protein-Dipstick 30 mg/dl (Negative); Urine Bilirubin Dipstick Negative (Negative); Urine Clarity Clear (Clear); Urine Urobilinogen Normal (Normal)
[2021-06-26 20:43] LABS: Differential Indicated SCAN CRITERIA MET; Partial Thromboplast Time 30.4 Seconds (24.1-36.2)
[2021-06-26 20:53] LABS: Squamous Epithelial Cells - UA 0-5 SEEN /hpf (5-10); White Blood Cells 5-10 SEEN /hpf (0-5)
[2021-06-26 21:09] LABS: ALB/GLOB Ratio 0.8 RATIO (0.9-2.4); AST(SGOT) 45 U/L (15-37); Alanine Aminotransfer ALT/SGPT 28 U/L (13-56); Albumin, Serum 3.4 g/dL (3.2-5.0); Alkaline Phosphatase 104 U/L (45-117); Anion Gap 6 (5-15); BUN 35 mg/dL (7-18); BUN/Creat Ratio 20.8 RATIO (10-20); Calcium,Total 8.9 mg/dL (8.5-10.1); Chloride 109 mmol/L (98-107); Creatinine, Serum 1.68 mg/dL (0.55-1.02); EST Glomerular Filtration Rate 33 mL/min (>60); Est Glom Filt Rate - Afr Amer 40 mL/min (>60); Estimated Creatinine Clearance 28.35 ml/min; Globulin 4.1 g/dL (2.2-4.2); Glucose 100 mg/dL (74-106); Lipase 205 U/L (73-393); Protein, Total 7.5 g/dL (6.4-8.2); Sodium Level 138 mmol/L (136-145)
[2021-06-26 21:16] LABS: Differential Comment SCANNED
[2021-06-26 21:36] VITALS: BP 149/80; PULSE 77; RESP 24; O2SAT 96
[2021-06-26 23:06] VITALS: BP 143/83; PULSE 80; RESP 2; O2SAT 95
[2021-06-26] MEDS: Nitrofurantoin Macrocrystals 100 MG Capsule PO (23:07)
--- NOTE | 2021-06-26 23:35 | RAD_ITS ---
EXAM: XR CHEST, 1 VIEW CLINICAL INDICATION: hypoxia TECHNIQUE: Frontal view of the chest. This report was created using [employer] report generation technology. COMPARISON: Chest x-ray 10/04/2017. FINDINGS: LUNGS AND PLEURAL SPACES: Bilateral multilobar airspace disease is concerning for pneumonia in the appropriate clinical setting. No pneumothorax. No effusion. HEART: Unremarkable. Cardiac silhouette not enlarged. MEDIASTINUM: Central airways and mediastinal contour are unremarkable. BONES/JOINTS: No suspicious lytic or sclerotic lesions of bone. SOFT TISSUES: Unremarkable. VASCULATURE: Ectatic thoracic arch with atherosclerotic calcifications. RAD/Chest 1 View (Portable) IMPRESSION: New bilateral multilobar pneumonia suspected. Electronically Signed: Alhaji Palencia MD at 0:00 EST Tel , Service support ,
--- NOTE | 2021-06-26 23:41 | ED.RN ---
PT. BECAME HYPOXIC WHEN GETTING UP TO BEDSIDE COMMODE. NURSE TURNED OXYGEN OFF TO SEE HOW PATIENT WOULD DO, SINCE PT. WAS UP FOR DISCHARGE. PT. DROPPED TO 82% ON ROOM AIR. DR. PHOENIX NOTIFIED. PT. ON 3L CURRENTLY AT 90%.
[2021-06-26 23:43] VITALS: PULSE 83; RESP 24; O2SAT 90
[2021-06-26 23:58] VITALS: BP 96/72; PULSE 84; RESP 18; TEMP 36.2; O2SAT 92
[2021-06-27] VITALS (13 sets, daily range): BP systolic 127–154; BP diastolic 72–84; PULSE 62–76; RESP 18–20; TEMP 36.6–37.5; O2SAT 81–97; BMI 40.8
--- NOTE | 2021-06-27 00:03 | HP.PCM.HOS_ITS ---
HPI - General General Date of Admission: 06/26/21 HPI Narrative CHELI FITCH, is a 61 F with a significant history of autoimmune hepatitis status post liver transplant and on immunosuppressive medications; CKD stage IIIb; COVID-19 vaccinated with a booster who presented to the emergency d [facility] with a 3-week history of nausea and vomiting. Associated with her symptoms is diffuse abdominal pain. Her symptoms improved temporarily but for about a week or so her symptoms worsened. Patient is unable to keep anything down even including her transplant medications. Her family became worried and patient was brought to the emergency department. Also patient reports diarrhea that started about a week and a half ago. However, she has not had any bowel movement on the day of presentation. Further, patient has had lethargy, weakness and chills. At the emergency department her urine was abnormal so she was diagnosed with UTI. She denies any urinary symptoms of dysuria or change in frequency. At the emergency department patient was 91% on room air but her oxygen saturation dropped to 83% so she was placed on 3 L of nasal cannula oxygen. Patient was initially discharged from the ED however upon her oxygen taken off her oxygen saturation dropped to the 70s. Patient required 6 L of nasal cannula oxygen thereafter to maintain appropriate oxygen saturation. Chest x-ray was subsequently obtained. The chest x-ray showed bilateral infiltrates. Emergency department doctor ordered PCR COVID; and a decision was made for patient to stay at the hospital.. [facility] Medical History Former smoker Hypothyroidism Kidney disease Home Medications albuterol sulfate [Ventolin HFA] 2 puff INHALATION Q6H PRN PRN 06/21/16 [History Last Taken Unknown] azathioprine 50 mg PO DAILY@0800 06/21/16 [History Last Taken 10/03/17] calcium-vitamin D3-vitamin K [Citracal-D3 Soft Chew] 1 ea PO DAILY 06/21/16 [History Last Taken 10/03/17] cyanocobalamin (vitamin B-12) [Vitamin B-12] 50,000 mcg PO MOORE 06/21/16 [History Last Taken 10/02/17] ondansetron 8 mg PO Q8H PRN PRN 06/21/16 [History Last Taken 07/12/17] pantoprazole 40 mg PO DAILY 06/21/16 [History Last Taken 10/03/17] zinc 50 mg PO DAILY 06/21/16 [History Last Taken 10/03/17] melatonin 3 mg PO QHS 09/04/16 [History Last Taken 10/02/17] furosemide 100 mg PO DAILY 11/02/16 [History Last Taken 10/02/17] tramadol 50 mg PO BID PRN PRN 02/14/17 [History Last Taken 10/03/17] ascorbic acid (vitamin C) [Vitamin C] 500 mg PO BIDCM 07/12/17 [History Last Taken 07/11/17] ferrous gluconate 325 mg PO BIDCM 07/12/17 [History Last Taken 10/03/17] Xifaxan 550 mg PO BID 10/04/17 [History Last Taken 10/03/17] calcium carbonate 500 mg PO BID 10/04/17 [History Last Taken Unknown] cholecalciferol (vitamin D3) [Vitamin D3] 2,000 unit PO DAILY 10/04/17 [History Last Taken 10/03/17] lactulose 60 ml PO BID #0 10/07/17 [Rx Last Taken 10/02/17] aspirin 81 mg PO DAILY 08/19/19 [History Last Taken Unknown] mycophenolate mofetil 500 mg PO BID 08/19/19 [History Last Taken Unknown] ondansetron 4 mg PO Q8H PRN PRN #7 tab 08/19/19 [Rx Last Taken Unknown] prednisone 5 mg PO DAILY 08/19/19 [History Last Taken Unknown] simvastatin 20 mg PO QHS 08/19/19 [History Last Taken Unknown] sulfamethoxazole-trimethoprim 1 ea PO MOWEFR 08/19/19 [History Last Taken Unknown] tacrolimus 0.5 mg PO Q12H 08/19/19 [History Last Taken Unknown] tacrolimus 2 mg PO Q12H 08/19/19 [History Last Taken Unknown] ursodiol 250 mg PO BID 08/19/19 [History Last Taken Unknown] levothyroxine 88 mcg PO DAILY 06/26/21 [History Last Taken Unknown] nitrofurantoin monohyd/m-cryst 100 mg PO Q12 #14 capsule 06/26/21 [Rx Last Taken Unknown] Allergy/AdvReac Type Severity Reaction Status Date / Time amoxicillin Allergy Hives Verified 06/26/21 19:28 Fish Containing Products Allergy Rash Verified 06/26/21 19:28 Iodinated Contrast Media Allergy Rash Verified 06/26/21 19:28 [Iodinated Contrast Media - IV Dye] Penicillins [PCN] Allergy Hives Verified 06/26/21 19:28 Family History Other Cancer Diabetes Heart disease Surgical History History of herniorrhaphy Liver transplant recipient Social History Smoking Status: Former smoker ROS ROS Narrative Constitutional: Denies fever. Reports chills, fatigue, and anorexia. Eyes: Denies blurry vision, change in eye color, change in vision, discharge from eye(s), double vision, erythema, eye pain, loss of vision or other HEENT: Denies abnormal hearing, dysphagia, ear pain, epistaxis, headache(s), hearing loss, nasal congestion, nasal discharge, post nasal drip, sinus pressure, sore throat or other Cardiovascular: Denies chest pain or palpitations. Denies dyspnea on exertion, orthopnea and paroxysmal nocturnal dyspnea Respiratory/Chest: Denies cough, excessive phlegm production, shortness of breath with exertion and wheezing Gastrointestinal: Reports abdominal pain and diarrhea. Reports nausea and vomiting. Reported loose stools. Denies coffee ground emesis, constipation, dyspepsia, hematemesis, hematochezia, melena, or other Genitourinary: Denies burning urination, difficulty urinating, dysuria, hematuria, nocturia, urinary frequency, urinary hesitancy, urinary incontinence, urinary urgency or other Musculoskeletal: Reports myalgia. Denies arthralgias, back pain, joint pain, joint stiffness, joint swelling, neck pain or other Neurologic: Denies abnormal gait, abnormal speech, confusion, disequilibrium, dizziness, focal weakness, headache(s), numbness, paresthesias, seizure-like activity, seizures, syncope, tingling, tremor(s) or other Psychiatric: Denies anxiety, depression, homicidal ideation, suicidal ideation or other Endocrinology: Denies change in body appearance, cold intolerance, excessive sweating, heat intolerance, polydipsia, polyuria or other Hematologic/Lymphatic: Denies anemia, easy bleeding, easy bruising, lymphadenopathy or other Integumentary: Denies rashes Allergic/Immunologic: Denies rhinitis, hives, eczema, asthma or other Vital Signs Vital Signs Vital Signs: 06/26/21 19:25 06/26/21 19:35 06/26/21 20:36 Temperature 98.2 F Temperature Source Temporal Pulse Rate 101 H Respiratory Rate 24 H Blood Pressure 110/90 H Blood Pressure Mean 96 Pulse Ox 91 83 Oxygen Delivery Method Room Air Room Air Nasal Cannula Oxygen Flow Rate (L/min) 3 06/26/21 21:36 06/26/21 23:06 06/26/21 23:43 Temperature Temperature Source Pulse Rate 77 80 83 Respiratory Rate 24 H 2 L 24 H Blood Pressure 149/80 H 143/83 H Blood Pressure Mean 103 103 Pulse Ox 96 95 90 Oxygen Delivery Method Nasal Cannula Nasal Cannula Nasal Cannula Oxygen Flow Rate (L/min) 3 3 6 06/26/21 23:58 Temperature 97.2 F L Temperature Source Temporal Pulse Rate 84 Respiratory Rate 18 Blood Pressure 96/72 Blood Pressure Mean 80 Pulse Ox 92 Oxygen Delivery Method Nasal Cannula Oxygen Flow Rate (L/min) 6 Weight Weight: 105.233 kg Body Mass Index (BMI) 41.1 Physical Exam Narrative Physical exam: General: Well-nourished, well-developed. Head: Normocephalic, atraumatic, no tenderness Eyes: PERRLA, EOMI ENT, no trauma, moist mucous membranes, no rhinorrhea Neck: Nontender, full range of motion, no spinal tenderness, deformities, step- off CVS: Regular rate and rhythm. S1-S2 present. No murmur, gallop or rub. Respiratory : Tachypnea; bibasilar Rales, chest wall nontender, no wheezing Abdomen: Soft, nontender, nondistended, normal bowel sounds, no masses : Deferred Back: Nontender, no CVA tenderness, no midline spinal tenderness, deformities, step-offs Extremities: Nontender full range of motion, no trauma Skin: Normal color, no trauma, abrasions Neuro: Alert, oriented, cranial nerves II through XII grossly intact. Psychiatry: Normal mood. Normal affect. Not depressed. Not anxious. Results Lab / Micro Data Result Diagrams: 06/26/21 19:55 06/26/21 19:55 Labs: Laboratory Results - last 24 hr 06/26/21 19:55: WBC 3.5 L, RBC 5.42 H, Hgb 14.7, Hct 46.9, MCV 86.5, MCH 27.1, MCHC 31.3 L, RDW Std Deviation 46.2 H, RDW Coeff of Tyrell 14.6, Plt Count 101 L, MPV 10.7, Immature Gran % (Auto) 0.300, Neut % (Auto) 70.2 H, Lymph % (Auto) 16.2 L, [place] % (Auto) 13.0 H, Eos % (Auto) 0.0, Baso % (Auto) 0.3, Absolute Neuts (auto) 2.4, Absolute Lymphs (auto) 0.56 L, Nucleated RBC % 0, Differential Comment SCANNED, Diff Path Review October06/26/21 19:55: PT 12.8, INR 1.0, APTT 30.4 06/26/21 19:55: Sodium 138, Potassium 5.0, Chloride 109 H, Carbon Dioxide 23.0, Anion Gap 6, BUN 35 H, Creatinine 1.68 H, Estim Creat Clear Calc 28.35, Est GFR (MDRD) Af Amer 40 L, Est GFR (MDRD) Non-Af 33 L, BUN/Creatinine Ratio 20.8 H, Glucose 100, Calcium 8.9, Total Bilirubin 0.50, AST 45 H, ALT 28, Alkaline Phosphatase 104, Total Protein 7.5, Albumin 3.4, Globulin 4.1, Albumin/Globulin Ratio 0.8 L, Lipase 205 06/26/21 20:35: Urine Color Yellow, Urine Clarity Clear, Urine pH 5.0, Ur Specific [place] 1.020, Urine Protein 30 H, Urine Glucose (UA) Normal, Urine Ketones 5 H, Urine Occult Blood 150 H, Urine Nitrite Positive H, Urine Bilirubin Negative, Urine Urobilinogen Normal, Ur Leukocyte Esterase 100 H, Urine RBC 0 SEEN, Urine WBC 5-10 SEEN, Ur Squamous Epith Cells 0-5 SEEN, Urine Bacteria 0 SEEN, Urine Mucus 0 SEEN Radiology Impression Chest X-Ray 06/26/21 23:35 IMPRESSION: New bilateral multilobar pneumonia suspected. Electronically Signed: Alhaji Palencia MD at 0:00 EST Tel , Service support , Assessment & Plan Assessment/Plan (1) Respiratory failure: QUALIFIERS: Chronicity: acute Respiratory failure complication: hypoxia Qualified Code(s): J96.01 - Acute respiratory failure with hypoxia (2) Suspected COVID-19 virus infection: PLAN: Acute hypoxemic respiratory failure secondary to likely COVID-19 virus infection/Gastroenteritis Chest x-ray independently interpreted showed bilateral multilobar infiltrates. I agree radiologist interpretation. Previous chest x-ray was independently interpreted and current infiltrates is new With her constellation of symptoms it is probable that patient has COVID. Because her symptoms started long time ago emergent department doctor ordered PCR COVID instead of rapid antigen; follow. If PCR COVID return positive consider changing low dose prednisone (immunosuppressive for heart transplant) to Decadron. At this point, can not rule out bacterial gastroenteritis. Ceftriaxone and Flagyl started. Doubt UTI as no urine bacteria was seen; and patient denies any urinary symptoms. Pyuria is 5-10. Urine squamous cell was normal. Positive nitrite. Leukocyte esterase was 100. Urine culture ordered at the ED; follow. If COVID PCR is negative consider discontinuing Flagyl while continuing ceftriaxone. And if COVID PCR is negative and urine culture is negative consider discontinuing ceftriaxone. Given Macrobid at the emergency department. Continue oxygen supplementation started from the emergency department. Titrate oxygen as demonstrated. Clear liquid diet ordered. Zofran prn ordered. CBC reviewed showed white count of 3.5 with neutrophilia and lymphopenia as well as monocytosis. Old records reviewed showed chronic monocytosis. Trend CBC. Tessalon Perles as needed for cough ordered. CKD stage IIIb Stable Trend CMP. DVT prophylaxis: Subcutaneous Lovenox ordered Charges/Coding Visit Charges Inpatient E&M: 39746 Init Hosp L3
--- NOTE | 2021-06-27 00:23 | ED.RN ---
daughter Mary left her phone number [phone]
[2021-06-27] MEDS: Ceftriaxone 1 GM/50 ML BAG IV ×2 (01:39→21:54)
[2021-06-27] MEDS: metroNIDAZOLE 500 MG/100 ML BAG 100 MG IV ×3 (02:15→23:20)
[2021-06-27] MEDS: dexAMETHasone 4 MG/ML Vial IV (02:50)
[2021-06-27] MEDS: Ondansetron 4 MG/2 ML Vial IV (03:07)
[2021-06-27] MEDS: 0.9% Saline Lock 10 ML Syringe IV ×2 (03:11→21:59)
--- NOTE | 2021-06-27 06:13 | PCS.PANDOC ---
PANDEMIC DOCUMENTATION INITIATED: Date: 06/27/2021 Time: 010
--- NOTE | 2021-06-27 06:13 | NURSING ---
pt unsure of home medications.
[2021-06-27 07:00] LABS: Absolute Lymphocyte Count 0.33 X10^3/uL (0.83-4.51); Basophil# 0.01 X10^3/uL; Basophil% 0.3 % (0-1); Hematocrit 43.6 % (37-47); Hemoglobin 13.7 g/dL (12.0-15.0); Lymphocyte # 0.33 X10^3/ul (0.83-4.51); Lymphocyte % 9.2 % (19-41); Mean Corp Hgb Conc 31.4 g/dL (32-36); Mean Corpuscular Hgb 27.3 pg (27.0-32.0); Mean Platelet Vol. 10.5 fl (6.2-12.0); Monocyte# 0.25 X10^3/uL; NRBC Flagged by Analyzer 0 % (0-5); Neutrophil # 2.98 X10^3/uL (2.7-7.7); Neutrophil % 83.2 % (47-70); POSITIVE COUNT YES; POSITIVE DIFFERENTIAL YES; Platelet Count 97 K/mm3 (150-450); RBC Distribution Width CV 14.6 % (11.6-14.6); RBC Distribution Width SD 46.6 fl (35.1-43.9); Red Blood Count 5.01 M/mm3 (4.2-5.4); White Blood Count 3.6 K/mm3 (4.4-11.0)
[2021-06-27 07:04] LABS: Differential Indicated SCAN CRITERIA MET
[2021-06-27 07:21] LABS: Differential Comment SCANNED; Platelet Estimate SLT DEC (ADEQ)
[2021-06-27 07:26] LABS: ALB/GLOB Ratio 0.8 RATIO (0.9-2.4); AST(SGOT) 30 U/L (15-37); Alanine Aminotransfer ALT/SGPT 22 U/L (13-56); Albumin, Serum 3.1 g/dL (3.2-5.0); Alkaline Phosphatase 92 U/L (45-117); Anion Gap 8 (5-15); BUN 30 mg/dL (7-18); BUN/Creat Ratio 21.1 RATIO (10-20); Calcium,Total 8.1 mg/dL (8.5-10.1); Chloride 111 mmol/L (98-107); Creatinine, Serum 1.42 mg/dL (0.55-1.02); EST Glomerular Filtration Rate 40 mL/min (>60); Est Glom Filt Rate - Afr Amer 48 mL/min (>60); Estimated Creatinine Clearance 33.54 ml/min; Globulin 3.7 g/dL (2.2-4.2); Glucose 118 mg/dL (74-106); Potassium 4.7 mmol/L (3.5-5.1); Protein, Total 6.8 g/dL (6.4-8.2); Sodium Level 140 mmol/L (136-145)
[2021-06-27] MEDS: Mycophenolate Mofetil 250 MG Capsule 500 MG PO ×2 (10:53→22:07)
[2021-06-27] MEDS: Aspirin E.C. 81 MG Tablet PO (10:53)
[2021-06-27] MEDS: Enoxaparin 30 MG/0.3 ML Syringe SC (10:54)
[2021-06-27] MEDS: Tacrolimus Anhydrous 1 MG Capsule 2 MG PO ×2 (10:54→22:04)
[2021-06-27] MEDS: Levothyroxine 88 MCG Tablet PO (10:55)
[2021-06-27] MEDS: Tacrolimus 0.5 MG Capsule PO ×2 (10:55→22:07)
[2021-06-27] MEDS: rifAXIMin 550 MG Tablet PO ×2 (10:56→22:04)
[2021-06-27] MEDS: Ursodiol 250 MG Tablet PO ×2 (10:56→22:08)
--- NOTE | 2021-06-27 11:20 | CASEMGMT ---
RN CM called patient in room for initial transition planning/care coordination assessment. RN SHAUNA introduced self and role at [facility]. Patient alert and oriented. Patient willing to participate in assessment and is able to answer all questions appropriately. Care providers, pharmacy, and demographics verified. Patient wishes to discharge home, denies need for home health at this time. Patient states she has no further needs or concerns at this time. CM to follow for discharge planning needs that may arise. PCP: Azalia Specialists: Daniella, neurologist [facility]. Liver specialist at [facility] Preferred Pharmacy: [facility] Insurance: [employer] [facility] Prescription Benefit: yes Living Will/HPOA: yes, daughter Negro Call LNOK: daughters Living Arrangements: Patient lives with daughter in a first floor apartment with no steps to enter the home. Patient states she is independent at home. Transportation: self, daughter, neighbor DME/HHC: Patient states she has shower chair, walker, hand held shower. Patient states she has no preferences for DME, list reviewed with patient and ok with [employer], green sheet placed on chart. Disposition Plan: Patient to discharge home with family support and follow-up plans in place. Will monitor for home oxygen at discharge. Nayely CAMPBELL, RN, CM
--- NOTE | 2021-06-27 11:58 | PN.HOSP_ITS ---
Subjective Subjective Coughing. Breathing well. Objective Data Objective Data Vital Signs: Vital Signs Temp Pulse Resp BP Pulse Ox 36.6 C 70 18 154/73 H 92 06/27/21 08:34 06/27/21 08:34 06/27/21 08:35 06/27/21 08:34 06/27/21 08:34 Oxygen Flow Rate (L/min) 4 Oxygen Delivery Method Nasal Cannula Weight: 104.5 kg Body Mass Index (BMI) 40.8 Intake & Output: Intake and Output for Last 24 Hours 06/25/21 06/26/21 06/27/21 23:59 23:59 23:59 Intake Total 500 / 500 150 / 150 Balance 500 / 500 150 / 150 Lab / Micro Data Result Diagrams: 06/27/21 06:08 06/27/21 05:55 Labs: Laboratory Results - last 24 hr 06/26/21 19:55: WBC 3.5 L, RBC 5.42 H, Hgb 14.7, Hct 46.9, MCV 86.5, MCH 27.1, MCHC 31.3 L, RDW Std Deviation 46.2 H, RDW Coeff of Tyrell 14.6, Plt Count 101 L, MPV 10.7, Immature Gran % (Auto) 0.300, Neut % (Auto) 70.2 H, Lymph % (Auto) 16.2 L, [place] % (Auto) 13.0 H, Eos % (Auto) 0.0, Baso % (Auto) 0.3, Absolute Neuts (auto) 2.4, Absolute Lymphs (auto) 0.56 L, Nucleated RBC % 0, Differential Comment SCANNED, Diff Path Review October06/26/21 19:55: PT 12.8, INR 1.0, APTT 30.4 06/26/21 19:55: Sodium 138, Potassium 5.0, Chloride 109 H, Carbon Dioxide 23.0, Anion Gap 6, BUN 35 H, Creatinine 1.68 H, Estim Creat Clear Calc 28.35, Est GFR (MDRD) Af Amer 40 L, Est GFR (MDRD) Non-Af 33 L, BUN/Creatinine Ratio 20.8 H, Glucose 100, Calcium 8.9, Total Bilirubin 0.50, AST 45 H, ALT 28, Alkaline Phosphatase 104, Total Protein 7.5, Albumin 3.4, Globulin 4.1, Albumin/Globulin Ratio 0.8 L, Lipase 205 06/26/21 20:24: COVID-19 (ANNA) Detected 06/26/21 20:35: Urine Color Yellow, Urine Clarity Clear, Urine pH 5.0, Ur Specific [place] 1.020, Urine Protein 30 H, Urine Glucose (UA) Normal, Urine Ketones 5 H, Urine Occult Blood 150 H, Urine Nitrite Positive H, Urine Bilirubin Negative, Urine Urobilinogen Normal, Ur Leukocyte Esterase 100 H, Urine RBC 0 SEEN, Urine WBC 5-10 SEEN, Ur Squamous Epith Cells 0-5 SEEN, Urine Bacteria 0 SEEN, Urine Mucus 0 SEEN 06/26/21 22:01: C-React Prot Ext Range 35.20 H 06/27/21 05:55: Sodium 140, Potassium 4.7, Chloride 111 H, Carbon Dioxide 21.0, Anion Gap 8, BUN 30 H, Creatinine 1.42 H, Estim Creat Clear Calc 33.54, Est GFR (MDRD) Af Amer 48 L, Est GFR (MDRD) Non-Af 40 L, BUN/Creatinine Ratio 21.1 H, Glucose 118 H, Calcium 8.1 L, Total Bilirubin 0.40, AST 30, ALT 22, Alkaline Phosphatase 92, Total Protein 6.8, Albumin 3.1 L, Globulin 3.7, Albumin/Globulin Ratio 0.8 L 06/27/21 06:08: WBC 3.6 L, RBC 5.01, Hgb 13.7, Hct 43.6, MCV 87.0, MCH 27.3, MCHC 31.4 L, RDW Std Deviation 46.6 H, RDW Coeff of [place]rell 14.6, Plt Count 97 L, MPV 10.5, Immature Gran % (Auto) 0.300, Neut % (Auto) 83.2 H, Lymph % (Auto) 9.2 L, [place] % (Auto) 7.0, Eos % (Auto) 0.0, Baso % (Auto) 0.3, Absolute Neuts (auto) 3.0, Absolute Lymphs (auto) 0.33 L, Nucleated RBC % 0, Differential Comment SCANNED, Diff Path Review October foll, Platelet Estimate SLT DEC Micro: Microbiology 06/26/21 20:35 Urine, Clean Catch Urine Culture - Preliminary Gram negative floyd Radiography Diagnostic Testing: Radiology Impression Chest X-Ray 06/26/21 23:35 IMPRESSION: New bilateral multilobar pneumonia suspected. Electronically Signed: Alhaji Palencia MD at 0:00 EST Tel , Service support , Physical Exam Const alert and no apparent distress HEENT Head and Scalp: normocephalic Resp normal respiratory effort, no retractions, no use of accessory muscles and clear to auscultation bilaterally Cardio regular rate, regular rhythm, S1 normal heart sound and S2 normal heart sound GI normal to inspection, nondistended, normoactive bowel sounds, soft to palpation, non-tender and non-distended Extremity normal to inspection Assessment & Plan Assessment/Plan (1) Hypoxia: (2) Respiratory failure: QUALIFIERS: Chronicity: acute Respiratory failure complication: hypoxia Qualified Code(s): J96.01 - Acute respiratory failure with hypoxia (3) Suspected COVID-19 virus infection: PLAN: 1. Acute hypoxic respiratory failure Secondary to COVID-19 and possible bacterial pneumonia Wean oxygen as tolerated Pulmonary toilet 2. Acute COVID-19 pneumonia Onset is probably around 3 weeks ago Continue with dexamethasone, when patient has completed dexamethasone would wean prednisone back to her 5 mg daily. Not a candidate for remdesivir given the timing 3. Status post liver transplant Continue steroids, tacrolimus, mycophenolate However the patient the option to be transferred to [facility] where her transplant was performed. She would prefer to stay here. No evidence of liver failure at this point. 4. CKD 3B Stable 5. VTE prophylaxis with enoxaparin Charges/Coding Visit Charges Inpatient E&M: 87321 Subs Hosp L2
[2021-06-27] MEDS: Atorvastatin Calcium 10 MG Tablet PO (22:05)
[2021-06-28] VITALS (17 sets, daily range): BP systolic 117–148; BP diastolic 55–84; PULSE 56–80; RESP 16–20; TEMP 36.5–36.9; O2SAT 73–96
--- NOTE | 2021-06-28 04:23 | PCM.PN.BLA ---
Progress Note Nurse reported at the beginning of his shift patient was requiring 3 L nasal cannula oxygen but now patient is requiring 12 L nasal cannula oxygen. Nurse is requesting that patient be placed on Airvo. Airvo ordered. We will give Lasix 40 mg IV push. Creatinine is stable. Will get a chest x-ray.
[2021-06-28] MEDS: Furosemide 40 MG/4 ML Vial IV (04:43)
--- NOTE | 2021-06-28 04:45 | RAD_ITS ---
STUDY: X-RAY CHEST REASON FOR EXAM: Female, 61 years old. sob TECHNIQUE: Single AP portable view of the chest. COMPARISON: 06/26/2021. FINDINGS: Ill-defined subpleural groundglass opacities are seen more prominent in the lung bases , may represent atypical pneumonia or viral pneumonia (COVID-19 ?). There is no demonstrated pleural abnormality. Normal size heart. Normal mediastinum and rebeca. Normal visualized pulmonary arteries. Normal visualized aortic arch and descending thoracic aorta. Normal visualized thoracic spine. Normal visualized ribs, clavicles, and shoulders. There is no demonstrated abnormality of the visualized soft tissue structures of the upper abdomen. RAD/Chest 1 View (Portable) IMPRESSION: COVID-19 pneumonia. There has been no significant change since the previous study. Electronically Signed: Rosa Kirk MD at 6:20 EST Tel , Service support ,
[2021-06-28] MEDS: metroNIDAZOLE 500 MG/100 ML BAG 100 MG IV (04:48)
[2021-06-28 07:22] LABS: Absolute Neutrophil Count 3.5 X10^3/uL (2.0-7.7); Hemoglobin 13.9 g/dL (12.0-15.0); Lymphocyte % 11.4 % (19-41); Mean Corp Hgb Conc 32.3 g/dL (32-36); Mean Corpuscular Volume 83.5 fL (81-99); Mean Platelet Vol. 10.4 fl (6.2-12.0); Monocyte# 0.33 X10^3/uL; Monocyte% 7.5 % (0-10); NRBC Flagged by Analyzer 0 % (0-5); Neutrophil # 3.53 X10^3/uL (2.7-7.7); Neutrophil % 80.4 % (47-70); POSITIVE DIFFERENTIAL YES; Platelet Count 111 K/mm3 (150-450); RBC Distribution Width CV 14.3 % (11.6-14.6); RBC Distribution Width SD 43.7 fl (35.1-43.9); Red Blood Count 5.15 M/mm3 (4.2-5.4); White Blood Count 4.4 K/mm3 (4.4-11.0)
[2021-06-28 07:23] LABS: Differential Indicated SCAN CRITERIA MET
--- NOTE | 2021-06-28 07:31 | EKG12_ITS ---
Test Reason : CP Blood Pressure : / mmHG Vent. Rate : 067 BPM Atrial Rate : 067 BPM P-R Int : 152 ms QRS Dur : 080 ms QT Int : 418 ms P-R-T Axes : 042 -08 028 degrees QTc Int : 441 ms Normal sinus rhythm Normal ECG When compared with ECG of 02-JUL-2017 12:58, Vent. rate has decreased BY 57 BPM T wave inversion no longer evident in Anterolateral leads Confirmed by IDALIA GAY, BENY ([id number]), managing editor KUSH LAWTON ([id number]) on 06/30/2021 10:03:12 AM Referred By: ALFIE Confirmed By:BENY FRIEDMAN MD
[2021-06-28 07:53] LABS: Platelet Estimate ADEQUATE (ADEQ); Red Cell Morphology NORM C+C NORMAL (NORM C&C)
[2021-06-28 07:56] LABS: ALB/GLOB Ratio 0.8 RATIO (0.9-2.4); AST(SGOT) 29 U/L (15-37); Alanine Aminotransfer ALT/SGPT 21 U/L (13-56); Albumin, Serum 3.1 g/dL (3.2-5.0); Alkaline Phosphatase 87 U/L (45-117); Anion Gap 8 (5-15); BUN 37 mg/dL (7-18); BUN/Creat Ratio 25.7 RATIO (10-20); Calcium,Total 8.8 mg/dL (8.5-10.1); Chloride 109 mmol/L (98-107); Creatinine, Serum 1.44 mg/dL (0.55-1.02); EST Glomerular Filtration Rate 39 mL/min (>60); Est Glom Filt Rate - Afr Amer 47 mL/min (>60); Estimated Creatinine Clearance 33.08 ml/min; Globulin 3.8 g/dL (2.2-4.2); Glucose 115 mg/dL (74-106); Potassium 4.5 mmol/L (3.5-5.1); Protein, Total 6.9 g/dL (6.4-8.2); Sodium Level 138 mmol/L (136-145)
[2021-06-28] MEDS: Mycophenolate Mofetil 250 MG Capsule 500 MG PO ×2 (09:36→21:30)
[2021-06-28] MEDS: Aspirin E.C. 81 MG Tablet PO (09:36)
[2021-06-28] MEDS: dexAMETHasone 10 MG/ML Vial 6 MG IV (09:36)
[2021-06-28] MEDS: Tacrolimus Anhydrous 1 MG Capsule 2 MG PO ×2 (09:37→21:29)
[2021-06-28] MEDS: Enoxaparin 30 MG/0.3 ML Syringe SC (09:37)
[2021-06-28] MEDS: Tacrolimus 0.5 MG Capsule PO ×2 (09:38→21:30)
[2021-06-28] MEDS: Levothyroxine 88 MCG Tablet PO (09:38)
[2021-06-28] MEDS: rifAXIMin 550 MG Tablet PO ×2 (09:39→21:28)
[2021-06-28] MEDS: Ursodiol 250 MG Tablet PO ×2 (09:39→21:29)
--- NOTE | 2021-06-28 11:03 | PCM.PN.HOSP ---
Subjective Subjective Placed on Airvo overnight. Feels ok Objective Data Objective Data Vital Signs: Vital Signs Temp Pulse Resp BP Pulse Ox 36.9 C 68 20 H 137/84 H 92 06/28/21 07:53 06/28/21 07:53 06/28/21 07:54 06/28/21 07:53 06/28/21 07:53 Oxygen Flow Rate (L/min) [ 3 AMBULATING with Oxygen #1] Oxygen Flow Rate (L/min) 45 Oxygen Delivery Method Airvo Weight: 104.5 kg Body Mass Index (BMI) 40.8 Intake & Output: Intake and Output for Last 24 Hours 06/26/21 06/27/21 06/28/21 23:59 23:59 23:59 Intake Total 500 / 500 300 / 300 200 / 200 Balance 500 / 500 300 / 300 200 / 200 Lab / Micro Data Result Diagrams: 06/28/21 07:00 06/28/21 07:00 Labs: Laboratory Results - last 24 hr 06/28/21 07:00: WBC 4.4, RBC 5.15, Hgb 13.9, Hct 43.0, MCV 83.5, MCH 27.0, MCHC 32.3, RDW Std Deviation 43.7, RDW Coeff of Tyrell 14.3, Plt Count 111 L, MPV 10.4, Immature Gran % (Auto) 0.700, Neut % (Auto) 80.4 H, Lymph % (Auto) 11.4 L, [place] % (Auto) 7.5, Eos % (Auto) 0.0, Baso % (Auto) 0.0, Absolute Neuts (auto) 3.5, Absolute Lymphs (auto) 0.50 L, Nucleated RBC % 0, Platelet Estimate ADEQUATE, RBC Morphology NORM C+C 06/28/21 07:00: Sodium 138, Potassium 4.5, Chloride 109 H, Carbon Dioxide 21.0, Anion Gap 8, BUN 37 H, Creatinine 1.44 H, Estim Creat Clear Calc 33.08, Est GFR (MDRD) Af Amer 47 L, Est GFR (MDRD) Non-Af 39 L, BUN/Creatinine Ratio 25.7 H, Glucose 115 H, Calcium 8.8, Total Bilirubin 0.40, AST 29, ALT 21, Alkaline Phosphatase 87, Total Protein 6.9, Albumin 3.1 L, Globulin 3.8, Albumin/Globulin Ratio 0.8 L Micro: Microbiology 06/26/21 20:35 Urine, Clean Catch Urine Culture - Final Escherichia coli Radiography Diagnostic Testing: Radiology Impression Chest X-Ray 06/28/21 04:45 IMPRESSION: COVID-19 pneumonia. There has been no significant change since the previous study. Electronically Signed: Rosa Kirk MD at 6:20 EST Tel , Service support , Physical Exam Const alert Resp Resp Narrative: coarse breath sounds bilaterally Cardio regular rate, regular rhythm, S1 normal heart sound and S2 normal heart sound GI normal to inspection, nondistended, normoactive bowel sounds, soft to palpation and non-tender Assessment & Plan Assessment/Plan (1) Hypoxia: (2) Respiratory failure: QUALIFIERS: Chronicity: acute Respiratory failure complication: hypoxia Qualified Code(s): J96.01 - Acute respiratory failure with hypoxia (3) Suspected COVID-19 virus infection: PLAN: 1. Acute hypoxic respiratory failure Worse today Secondary to COVID-19 and possible bacterial pneumonia Pulmonary toilet Broaden abx to cefepime (pcn allergy) and vanc pulmonary toilet 2. Acute COVID-19 pneumonia Onset is probably around 3 weeks ago Continue with dexamethasone, when patient has completed dexamethasone would wean prednisone back to her 5 mg daily. Not a candidate for remdesivir given the timing 3. Status post liver transplant Continue steroids, tacrolimus, mycophenolate However the patient the option to be transferred to [facility] where her transplant was performed. She would prefer to stay here. No evidence of liver failure at this point. 4. CKD 3B Stable 5. VTE prophylaxis with enoxaparin Charges/Coding Visit Charges Inpatient E&M: 04304 Subs Hosp L2
--- NOTE | 2021-06-28 14:48 | PCM.RX.CS ---
Consult Pharmacy has been consulted to manage selected antiobiotic: Vancomycin Type of Consult: New start Suspected Infection: Pneumonia Labs: Sodium 138 mmol/L (136-145) 06/28/21 07:00 Potassium 4.5 mmol/L (3.5-5.1) 06/28/21 07:00 Chloride 109 mmol/L (98-107) H 06/28/21 07:00 Carbon Dioxide 21.0 mmol/L (21.0-32.0) 06/28/21 07:00 Anion Gap 8 (5-15) 06/28/21 07:00 BUN 37 mg/dL (7-18) H 06/28/21 07:00 Creatinine 1.44 mg/dL (0.55-1.02) H 06/28/21 07:00 Est GFR (MDRD) Af Amer 47 mL/min (>60) L 06/28/21 07:00 Est GFR (MDRD) Non-Af 39 mL/min (>60) L 06/28/21 07:00 BUN/Creatinine Ratio 25.7 RATIO (10-20) H 06/28/21 07:00 Glucose 115 mg/dL (74-106) H 06/28/21 07:00 Microbiology: Microbiology 06/26/21 20:35 Urine, Clean Catch Urine Culture - Final Escherichia coli Goal Trough: 15-20 mcg/mL Pharmacy Plan for Drug Dosing: NEW START IV VANCOMYCIN Consulting Physician: Dr. Grimm Indication: PNA Goal Trough: 15-20 SrCr: 1.44 CrCl: 46 mL/min using AdjBW of 73kg Comments: Initial 15 mg/kg dose of 1500mg IV x1 ordered and administered 06/28/21 @1417 Vancomcyin Dose: 750mg IV Q12hr to start 06/29/21 @0200 Pending Level: 06/30/21 @0130, prior to 4th total dose of vancomycin per protocol Pharmacy Service will continue to monitor and adjust dosing as required.
[2021-06-28] MEDS: Atorvastatin Calcium 10 MG Tablet PO (21:27)
[2021-06-28] MEDS: guaiFENesin 1,200 MG Tablet 1200 MG PO (21:28)
[2021-06-29] VITALS (19 sets, daily range): BP systolic 102–153; BP diastolic 48–92; PULSE 59–86; RESP 18–22; TEMP 36.3–37; O2SAT 45–95
[2021-06-29 05:58] LABS: Absolute Lymphocyte Count 0.36 X10^3/uL (0.83-4.51); Absolute Neutrophil Count 3.8 X10^3/uL (2.0-7.7); Basophil# 0.02 X10^3/uL; Basophil% 0.4 % (0-1); Hematocrit 40.5 % (37-47); Hemoglobin 13.4 g/dL (12.0-15.0); Lymphocyte # 0.36 X10^3/ul (0.83-4.51); Lymphocyte % 7.9 % (19-41); Mean Corp Hgb Conc 33.1 g/dL (32-36); Mean Corpuscular Hgb 27.5 pg (27.0-32.0); Monocyte# 0.32 X10^3/uL; NRBC Flagged by Analyzer 0 % (0-5); Neutrophil # 3.82 X10^3/uL (2.7-7.7); Neutrophil % 84.3 % (47-70); POSITIVE DIFFERENTIAL YES; Platelet Count 123 K/mm3 (150-450); RBC Distribution Width CV 14.4 % (11.6-14.6); RBC Distribution Width SD 43.7 fl (35.1-43.9); Red Blood Count 4.88 M/mm3 (4.2-5.4); White Blood Count 4.5 K/mm3 (4.4-11.0)
[2021-06-29 06:10] LABS: Differential Indicated SCAN CRITERIA MET
[2021-06-29 06:47] LABS: ALB/GLOB Ratio 0.6 RATIO (0.9-2.4); AST(SGOT) 20 U/L (15-37); Alanine Aminotransfer ALT/SGPT 28 U/L (13-56); Albumin, Serum 2.2 g/dL (3.2-5.0); Alkaline Phosphatase 93 U/L (45-117); Anion Gap 7 (5-15); BUN 32 mg/dL (7-18); BUN/Creat Ratio 26.2 RATIO (10-20); Calcium,Total 8.3 mg/dL (8.5-10.1); Chloride 113 mmol/L (98-107); Creatinine, Serum 1.22 mg/dL (0.55-1.02); EST Glomerular Filtration Rate 47 mL/min (>60); Est Glom Filt Rate - Afr Amer 57 mL/min (>60); Estimated Creatinine Clearance 39.04 ml/min; Globulin 3.8 g/dL (2.2-4.2); Glucose 119 mg/dL (74-106); Potassium 4.4 mmol/L (3.5-5.1); Sodium Level 138 mmol/L (136-145)
[2021-06-29] MEDS: Smz/Tmp Ds Tablet 1 TABLET PO (09:00)
[2021-06-29] MEDS: guaiFENesin 1,200 MG Tablet 1200 MG PO ×2 (09:00→21:24)
[2021-06-29] MEDS: Enoxaparin 30 MG/0.3 ML Syringe SC ×2 (09:01→21:21)
[2021-06-29] MEDS: Tacrolimus 0.5 MG Capsule PO ×2 (09:02→21:22)
[2021-06-29] MEDS: dexAMETHasone 10 MG/ML Vial 6 MG IV (09:02)
[2021-06-29] MEDS: Aspirin E.C. 81 MG Tablet PO (09:02)
[2021-06-29] MEDS: Ursodiol 250 MG Tablet PO ×2 (09:03→21:22)
[2021-06-29] MEDS: Levothyroxine 88 MCG Tablet PO (09:03)
[2021-06-29] MEDS: Tacrolimus Anhydrous 1 MG Capsule 2 MG PO ×2 (09:03→21:24)
[2021-06-29] MEDS: rifAXIMin 550 MG Tablet PO ×2 (09:03→21:22)
[2021-06-29] MEDS: Mycophenolate Mofetil 250 MG Capsule 500 MG PO ×2 (09:04→21:22)
--- NOTE | 2021-06-29 09:25 | PN.HOSP_ITS ---
Subjective Subjective Patient is on Arava. Short of breath mainly on mild exertion. Denies chest pain/tightness. Mild cough with clear sputum. She had liver transplant about 4 years ago Objective Data Objective Data Vital Signs: Vital Signs Temp Pulse Resp BP Pulse Ox 98.6 F 86 18 140/89 H 45 06/29/21 07:59 06/29/21 08:00 06/29/21 08:00 06/29/21 07:59 06/29/21 08:00 Oxygen Flow Rate (L/min) [ 3 AMBULATING with Oxygen #1] Oxygen Flow Rate (L/min) 45 Oxygen Delivery Method Airvo Weight: 230 lb 6.129 oz Body Mass Index (BMI) 40.8 Intake & Output: Intake and Output for Last 24 Hours 06/27/21 06/28/21 06/29/21 23:59 23:59 23:59 Intake Total 300 / 300 1180 / 1180 265 / 265 Balance 300 / 300 1180 / 1180 265 / 265 Lab / Micro Data Result Diagrams: 06/29/21 05:30 06/29/21 05:30 Labs: Laboratory Results - last 24 hr 06/29/21 05:30: WBC 4.5, RBC 4.88, Hgb 13.4, Hct 40.5, MCV 83.0, MCH 27.5, MCHC 33.1, RDW Std Deviation 43.7, RDW Coeff of Tyrell 14.4, Plt Count 123 L, MPV 11.0, Immature Gran % (Auto) 0.400, Neut % (Auto) 84.3 H, Lymph % (Auto) 7.9 L, [place] % (Auto) 7.0, Eos % (Auto) 0.0, Baso % (Auto) 0.4, Absolute Neuts (auto) 3.8, Absolute Lymphs (auto) 0.36 L, Nucleated RBC % 0 06/29/21 05:30: Sodium 138, Potassium 4.4, Chloride 113 H, Carbon Dioxide 18.0 L , Anion Gap 7, BUN 32 H, Creatinine 1.22 H, Estim Creat Clear Calc 39.04, Est GFR (MDRD) Af Amer 57 L, Est GFR (MDRD) Non-Af 47 L, BUN/Creatinine Ratio 26.2 H , Glucose 119 H, Calcium 8.3 L, Total Bilirubin 0.50, AST 20, ALT 28, Alkaline Phosphatase 93, Total Protein 6.0 L, Albumin 2.2 L, Globulin 3.8, Albumin/Globulin Ratio 0.6 L Micro: Microbiology 06/26/21 20:35 Urine, Clean Catch Streptococcus pneumoniae Antigen (M - Final 06/26/21 20:35 Urine, Clean Catch Legionella Antigen - Final 06/28/21 16:50 Mucosa - Nasopharyngeal Influenza Types A,B Direct FA ([place]) - Final Influenzae B 06/26/21 20:35 Urine, Clean Catch Urine Culture - Final Escherichia coli Physical Exam Narrative General: Alert, Oriented x3, Cooperative, BMI 40.8 kg/m? HEENT: Atraumatic, PERRLA, EOMI, Normocephalic Oral: No Gingival or Mucosal Lesions/ Ulcerations Neck: Supple, No JVD, Negative Carotid Bruits Lungs: Air entry diminished in bilateral lung bases. On oxygen support no cre pitation/rhonchi Cardiovascular: Regular rate, Regular Rhythm, Normal S1, Normal S2, No murmurs Abdomen: Bowel Sounds Present, Soft, Non Tender, Non-Distended : No renal angle tenderness. No suprapubic tenderness. Extremities: Mild edema of lower extremities edema, with generalized fat. Phillips hump over neck. Skin: No rashes, No breakdown Musculoskeletal: No Tenderness to Palpation of Joints or Extremities Neurological: Cranial nerves II-XII grossly intact, DTR 2+/4 and Symmetrical, Neuro grossly intact Psych/Mental Status: Normal Affect, Appropriate. Assessment & Plan Assessment/Plan (1) Hypoxia: (2) Respiratory failure: QUALIFIERS: Chronicity: acute Respiratory failure complication: hypoxia Qualified Code(s): J96.01 - Acute respiratory failure with hypoxia (3) Suspected COVID-19 virus infection: PLAN: 1. Acute hypoxic respiratory failure due to bilateral COVID-19 pne umonia and possible bacterial secondary infection: 06/29: Patient oxygenation and ventilation is worsening. On air Vo, 92% FiO2. On IV antibiotic vancomycin and cefepime. Bronchopulmonary hygiene with incentive spirometry with Pep and Mucinex 2. Acute COVID-19 pneumonia with bacterial superinfection Onset is probably around 3 weeks ago Continue with dexamethasone, when patient has completed dexamethasone would wean prednisone back to her 5 mg daily. Not a candidate for remdesivir given the timing 3. Status post liver transplant. Immunocompromised host. Continue steroids, tacrolimus, mycophenolate However the patient the option to be transferred to [facility] where her transplant was performed. She would prefer to stay here. ALT AST normal limit. Total bilirubin 0.5. Alkaline phosphatase normal. 4. CKD 3B: Serum creatinine improved from 1.68-1.22 5. VTE prophylaxis: Enoxaparin restart tomorrow subcu twice daily. Estimated creatinine clearance 39 mL/min.. Discontinue if platelet count drops less than 50,000 or hemoglobin less than 8 g% Charges/Coding Visit Charges Inpatient E&M: 64681 Subs Hosp L2
[2021-06-29] MEDS: Benzonatate 100 MG Capsule PO (09:46)
[2021-06-29] MEDS: Atorvastatin Calcium 10 MG Tablet PO (21:25)
[2021-06-30] VITALS (24 sets, daily range): BP systolic 128–181; BP diastolic 69–92; PULSE 62–86; RESP 12–26; TEMP 36.2–36.9; O2SAT 87–95
--- NOTE | 2021-06-30 02:35 | NURSING ---
offered to update family about pt being placed on a bipap. pt declines.
[2021-06-30 07:11] LABS: ALB/GLOB Ratio 0.8 RATIO (0.9-2.4); AST(SGOT) 32 U/L (15-37); Alanine Aminotransfer ALT/SGPT 22 U/L (13-56); Albumin, Serum 2.8 g/dL (3.2-5.0); Alkaline Phosphatase 84 U/L (45-117); Anion Gap 5 (5-15); BUN 38 mg/dL (7-18); BUN/Creat Ratio 30.4 RATIO (10-20); Calcium,Total 8.8 mg/dL (8.5-10.1); Chloride 116 mmol/L (98-107); Creatinine, Serum 1.25 mg/dL (0.55-1.02); EST Glomerular Filtration Rate 46 mL/min (>60); Est Glom Filt Rate - Afr Amer 56 mL/min (>60); Estimated Creatinine Clearance 38.11 ml/min; Globulin 3.7 g/dL (2.2-4.2); Glucose 119 mg/dL (74-106); Potassium 4.8 mmol/L (3.5-5.1); Protein, Total 6.5 g/dL (6.4-8.2); Sodium Level 139 mmol/L (136-145)
--- NOTE | 2021-06-30 07:49 | PN.HOSP_ITS ---
Subjective Subjective No fever. Patient hypoxia worsened and patient was put on BiPAP, FiO2 increased to 90%. Tachypneic respiratory rate 20 to 26/min. Afebrile. Sinus rhythm. Discussed with lead material handler and ID and consult requested. Objective Data Objective Data Vital Signs: Vital Signs Temp Pulse Resp BP Pulse Ox 98.4 F 77 26 H 156/92 H 92 06/30/21 05:58 06/30/21 07:18 06/30/21 07:18 06/30/21 05:58 06/30/21 07:18 Oxygen Flow Rate (L/min) [ 3 AMBULATING with Oxygen #1] Oxygen Flow Rate (L/min) 89 Oxygen Delivery Method Bi-pap Weight: 230 lb 6.129 oz Body Mass Index (BMI) 40.8 Intake & Output: Intake and Output for Last 24 Hours 06/28/21 06/29/21 06/30/21 23:59 23:59 23:59 Intake Total 1180 / 1180 1782.67 / 1782.67 265 / 265 Output Total 350 / 350 Balance 1180 / 1180 1782.67 / 1782.67 -85 / -85 Lab / Micro Data Result Diagrams: 06/30/21 11:52 06/30/21 05:58 Labs: Laboratory Results - last 24 hr 06/30/21 05:58: Sodium 139, Potassium 4.8, Chloride 116 H, Carbon Dioxide 18.0 L , Anion Gap 5, BUN 38 H, Creatinine 1.25 H, Estim Creat Clear Calc 38.11, Est GFR (MDRD) Af Amer 56 L, Est GFR (MDRD) Non-Af 46 L, BUN/Creatinine Ratio 30.4 H , Glucose 119 H, Calcium 8.8, Total Bilirubin 0.50, AST 32, ALT 22, Alkaline Phosphatase 84, Total Protein 6.5, Albumin 2.8 L, Globulin 3.7, Albumin/Globulin Ratio 0.8 L Micro: Microbiology 06/26/21 20:35 Urine, Clean Catch Streptococcus pneumoniae Antigen (M - Final 06/26/21 20:35 Urine, Clean Catch Legionella Antigen - Final 06/28/21 16:50 Mucosa - Nasopharyngeal Influenza Types A,B Direct FA ([place]) - Final Influenzae B 06/26/21 20:35 Urine, Clean Catch Urine Culture - Final Escherichia coli Physical Exam Narrative General: Alert, Oriented x3, Cooperative, BMI 40.8 kg/m? HEENT: Atraumatic, PERRLA, EOMI, Normocephalic Oral: On BiPAP Neck: Supple, No JVD, Negative Carotid Bruits Lungs: Respiratory distress with tachypnea and severe hypoxia. Air entry diminished in bilateral lung bases. On BiPAP. Cardiovascular: Regular rate, Regular Rhythm, Normal S1, Normal S2, No murmurs Abdomen: Bowel Sounds Present, Soft, Non Tender, Non-Distended : No renal angle tenderness. No suprapubic tenderness. Extremities: Mild edema of lower extremities edema, with generalized fat. [place] hump over neck. Skin: No rashes, No breakdown Musculoskeletal: No Tenderness to Palpation of Joints or Extremities Neurological: Cranial nerves II-XII grossly intact, DTR 2+/4 and Symmetrical, Neuro grossly intact Psych/Mental Status: Normal Affect, Appropriate. Assessment & Plan Assessment/Plan (1) Hypoxia: (2) Respiratory failure: QUALIFIERS: Chronicity: acute Respiratory failure complication: hypoxia Qualified Code(s): J96.01 - Acute respiratory failure with hypoxia (3) Suspected COVID-19 virus infection: PLAN: 1. Acute hypoxic respiratory failure due to bilateral COVID-19 pneumonia and possible bacterial secondary infection: 06/29: Patient oxygenation and ventilation is worsening. On air Vo, 92% FiO2. On IV antibiotic vancomycin and cefepime. Bronchopulmonary hygiene with incentive spirometry with Pep and Mucinex 06/30: Discussed with ID. Agree with antibiotic plan. Discussed with office coordinator. On 94 200% BiPAP. 2. Acute COVID-19 pneumonia with bacterial superinfection Onset is probably around 3 weeks ago Continue with dexamethasone, when patient has completed dexamethasone would wean prednisone back to her 5 mg daily. Not a candidate for remdesivir given the timing 06/30: Influenza B positive. Tamiflu added. Continue Decadron. Not candidate for baricitinib for history of liver transplant immunosuppression. ALC 0.3 K. ANC 6.2 thousand. D-dimer 1.57. Serum magnesium and phosphorus level normal. CRP, ferritin are elevated. Chest x-ray on 06/30 shows improved aeration with residual patchy infiltrates worse in right lower lobe 3. Status post liver transplant. Immunocompromised host. Continue steroids, tacrolimus, mycophenolate However the patient the option to be transferred to [facility] where her transplant was performed. She would prefer to stay here. ALT AST normal limit. Total bilirubin 0.5. Alkaline phosphatase normal. 4. OPAL on CKD stage 3b: Serum creatinine improved from 1.68-1.25. Patient creatinine was normal about 1.0 in May 2017 and then gradually improved probably due to cirrhosis it was about 1.5-1.6 in in 2018-2 20. 5. VTE prophylaxis: Enoxaparin 30 mg SQ twice daily estimated creatinine clearance 39 mL/min.. Discontinue if platelet count drops less than 50,000 or hemoglobin less than 8 g% Total time of the visit including total time spent in counseling or coordination of care, (more than 50% of the total time, spent in obtaining medical information from nurses and other ancillary care providers,explaining to the patient about labs, imaging, diagnosis and management), discussion with consultants with complexity of immunosuppression and liver transplant, review of labs and imaging is 40 minutes. Active Medications Acetaminophen (Acetaminophen 325 Mg Tablet) 650 mg PO Q6H PRN PRN PRN Reason: Pain 1-10 or Fever Last Admin: 06/30/21 14:23 Dose: 650 mg Documented by: Albuterol Sulfate (Albuterol Ih 8.5 Gm (Proair) Inhaler (200 Puffs)) 2 puff INHALATION Q6H PRN PRN PRN Reason: sob/wheezing Last Admin: 06/29/21 09:05 Dose: 2 puff Documented by: Aspirin (Aspirin E.C. 81 Mg Tablet) 81 mg PO DAILY [facility] Last Admin: 06/30/21 08:55 Dose: 81 mg Documented by: Atorvastatin Calcium (Atorvastatin Calcium 10 Mg Tablet) 10 mg PO QHS [facility] Last Admin: 06/29/21 21:25 Dose: 10 mg Documented by: Benzonatate (Benzonatate 100 Mg Capsule) 100 mg PO Q4H PRN PRN PRN Reason: COUGH Last Admin: 06/29/21 09:46 Dose: 100 mg Documented by: Dexamethasone Sodium Phosphate (Dexamethasone 10 Mg/Ml Vial) 6 mg IV DAILY [facility] Last Admin: 06/30/21 08:54 Dose: 6 mg Documented by: Enoxaparin Sodium (Enoxaparin 30 Mg/0.3 Ml Syringe) 30 mg SC BID [facility] Last Admin: 06/30/21 08:55 Dose: 30 mg Documented by: Guaifenesin (Guaifenesin 1,200 Mg Tablet) 1,200 mg PO BID [facility] Last Admin: 06/30/21 08:56 Dose: 1,200 mg Documented by: Sodium Chloride () 250 mls @ 15 mls/hr IV .[id number] PRN PRN Reason: Saline Flush Last Infusion: 06/28/21 21:39 Dose: Infused Documented by: Sodium Chloride () 250 mls @ 15 mls/hr IV .[id number] PRN PRN Reason: Additional IVPB Infusion Cefepime HCl 2 gm/ Sodium (Chloride) 100 mls @ 200 mls/hr IV Q12 [facility] Last Admin: 06/30/21 08:55 Dose: 200 mls/hr Documented by: Vancomycin IV-PHARMACY TO DOSE (1 each/ Sodium Chloride) 500 mls @ 250 mls/hr IV PRN PRN; Protocol PRN Reason: Rx to Dose Vancomycin HCl 750 mg/ Sodium (Chloride) 265 mls @ 250 mls/hr IV Q12H [facility] Last Admin: 06/30/21 14:14 Dose: 250 mls/hr Documented by: Levothyroxine Sodium (Levothyroxine 88 Mcg Tablet) 88 mcg PO DAILY [facility] Last Admin: 06/30/21 08:57 Dose: 88 mcg Documented by: Miscellaneous Information (Inhaler, Assist Devices 1 Each Spacer) 1 each INHALATION PRN PRN PRN Reason: WITH ALBUTEROL INHALER Mycophenolate Mofetil (Mycophenolate Mofetil 250 Mg Capsule) 500 mg PO BID [facility] Last Admin: 06/30/21 08:54 Dose: 500 mg Documented by: Ondansetron HCl (Ondansetron 4 Mg/2 Ml Vial) 4 mg IV Q6H PRN PRN PRN Reason: NAUSEA/VOMITING Last Admin: 06/27/21 03:07 Dose: 4 mg Documented by: Oseltamivir Phosphate (Oseltamivir Phosphate 30 Mg Capsule) 30 mg PO BID [facility] Stop: 07/04/21 22:01 Rifaximin (Rifaximin 550 Mg Tablet) 550 mg PO BID [facility] Last Admin: 06/30/21 08:57 Dose: 550 mg Documented by: Sodium Chloride (0.9% Saline Lock 10 Ml Syringe) 10 - 40 ml IV UD PRN PRN Reason: SALINE FLUSH Last Admin: 06/30/21 11:57 Dose: 10 ml Documented by: Tacrolimus (Tacrolimus Anhydrous 1 Mg Capsule) 2 mg PO Q12 [facility] Last Admin: 06/30/21 08:56 Dose: 2 mg Documented by: Tacrolimus (Tacrolimus 0.5 Mg Capsule) 0.5 mg PO Q12 [facility] Last Admin: 06/30/21 08:58 Dose: 0.5 mg Documented by: Trimethoprim/Sulfamethoxazole (Smz/Tmp Ds Tablet) 1 tablet PO MoWeFr@1000 [facility] Last Admin: 06/29/21 09:00 Dose: 1 tablet Documented by: Ursodiol (Ursodiol 250 Mg Tablet) 250 mg PO BID [facility] Last Admin: 06/30/21 08:57 Dose: 250 mg Documented by: Charges/Coding Visit Charges Inpatient E&M: 94516 Subs Hosp L3
--- NOTE | 2021-06-30 08:40 | NURSING ---
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 no other sourse of oxygen was placed. pulse ox in the high 70's. In to room to assess. tried placing pt on high flow 15L, but patient remained in the low 80's. reapplied the bipap. Pt currently 89% on bipap. will call respiratory to assess if pt does not come up to the 90's. no distress noted.
[2021-06-30 08:41] LABS: Magnesium 1.9 mg/dL (1.6-2.6)
--- NOTE | 2021-06-30 08:43 | NURSING ---
Pt up to 91% on bipap
[2021-06-30] MEDS: dexAMETHasone 10 MG/ML Vial 6 MG IV (08:54)
[2021-06-30] MEDS: Mycophenolate Mofetil 250 MG Capsule 500 MG PO ×2 (08:54→22:45)
[2021-06-30] MEDS: Enoxaparin 30 MG/0.3 ML Syringe SC (08:55)
[2021-06-30] MEDS: Aspirin E.C. 81 MG Tablet PO (08:55)
[2021-06-30] MEDS: guaiFENesin 1,200 MG Tablet 1200 MG PO ×2 (08:56→22:47)
[2021-06-30] MEDS: Tacrolimus Anhydrous 1 MG Capsule 2 MG PO ×2 (08:56→22:43)
--- NOTE | 2021-06-30 08:56 | RAD_ITS ---
STUDY: X-RAY CHEST REASON FOR EXAM: Female, 61 years old. SOB TECHNIQUE: Single AP portable view of the chest. COMPARISON: Comparison is made with prior study dated 06/28/2021. FINDINGS: EKG electrodes are seen. Since prior study, there has been improved aeration of both lungs with residual patchy infiltrates present worse in the right lower lobe. There is no demonstrated pleural abnormality. Normal size heart. Normal mediastinum and rebeca. Normal visualized pulmonary arteries. There is atherosclerotic calcification of the aortic arch with tortuosity. There are diffuse degenerative changes of the visualized thoracic spine. Normal visualized ribs, clavicles, and shoulders. There is no demonstrated abnormality of the visualized soft tissue structures of the upper abdomen. RAD/Chest 1 View (Portable) IMPRESSION: Improved aeration of both lungs although residual patchy infiltrates remain worse in the right lower lobe. Electronically Signed: Cachorro Fox MD at 9:43 EST , Service support ,
[2021-06-30] MEDS: Ursodiol 250 MG Tablet PO ×2 (08:57→22:46)
[2021-06-30] MEDS: Levothyroxine 88 MCG Tablet PO (08:57)
[2021-06-30] MEDS: rifAXIMin 550 MG Tablet PO ×2 (08:57→22:46)
[2021-06-30] MEDS: Tacrolimus 0.5 MG Capsule PO ×2 (08:58→22:46)
--- NOTE | 2021-06-30 09:20 | NURSING ---
Pulse ox currently 97% on bipap.
[2021-06-30 10:16] LABS: Pathologist Review Reviewed
[2021-06-30 10:18] LABS: Pathologist Review Reviewed
--- NOTE | 2021-06-30 10:39 | PCM.CONS.GEN ---
Assessment & Plan Assessment/Plan (1) CKD (chronic kidney disease) stage 3, GFR 30-59 ml/min: (2) Liver transplant recipient: (3) Hypoxia: (4) COVID-19: PLAN: Sick for approximately 3 weeks. Covid vaccine x3. Also flu B Ag (+). On cellcept, tacro, pred, bactrim at home with h/o liver transplant. Not candidate for baricitinib due to liver transplant. On dex here and empiric vanc/cefepime. Ucx with ecoli, 80-100k. Will add tamiflu for flu coverage. Pulm to see; on 100% bipap. Will follow, thank you, d/w Dr. Corrales (5) Influenza B: HPI Consult Data Date of Consult: 06/30/21 HPI Narrative HPI Narrative: CHELI FITCH, is a 61 F with liver transplant about 4 years ago at [facility] for autoimmune hepatitis. No h/o complications related to infection, has been on stable doses of tacro, cellcept, pred, and bactrim. No sick contacts, lives with daughter. No recent travel. Covid vaccine x3 and has had flu shot. Reports about 3 weeks of n/v, not feeling well. No change in taste and smell. Over past 10 days, progressive cough and dyspnea with fatigue, some diarrhea. No dysuria, no fever, no aches. Came to ED, was covid (+), started on vanc/cefepime. Flu Ag also (+) 06/28. Full ROS performed and neg except as noted above PFSH Medical History (Updated 06/30/21 @ 10:[address] Demarcus Huddleston MD) Former smoker Hypothyroidism Kidney disease Migraines Osteoporosis Home Medications albuterol sulfate [Ventolin HFA] 2 puff INHALATION Q6H PRN PRN 06/21/16 [History Last Taken Unknown] azathioprine 50 mg PO DAILY@0800 06/21/16 [History Last Taken 10/03/17] calcium-vitamin D3-vitamin K [Citracal-D3 Soft Chew] 1 ea PO DAILY 06/21/16 [History Last Taken 10/03/17] cyanocobalamin (vitamin B-12) [Vitamin B-12] 50,000 mcg PO MOORE 06/21/16 [History Last Taken 10/02/17] ondansetron 8 mg PO Q8H PRN PRN 06/21/16 [History Last Taken 07/12/17] pantoprazole 40 mg PO DAILY 06/21/16 [History Last Taken 10/03/17] zinc 50 mg PO DAILY 06/21/16 [History Last Taken 10/03/17] melatonin 3 mg PO QHS 09/04/16 [History Last Taken 10/02/17] furosemide 100 mg PO DAILY 11/02/16 [History Last Taken 10/02/17] tramadol 50 mg PO BID PRN PRN 02/14/17 [History Last Taken 10/03/17] ascorbic acid (vitamin C) [Vitamin C] 500 mg PO BIDCM 07/12/17 [History Last Taken 07/11/17] ferrous gluconate 325 mg PO BIDCM 07/12/17 [History Last Taken 10/03/17] Xifaxan 550 mg PO BID 10/04/17 [History Last Taken 10/03/17] calcium carbonate 500 mg PO BID 10/04/17 [History Last Taken Unknown] cholecalciferol (vitamin D3) [Vitamin D3] 2,000 unit PO DAILY 10/04/17 [History Last Taken 10/03/17] lactulose 60 ml PO BID #0 10/07/17 [Rx Last Taken 10/02/17] aspirin 81 mg PO DAILY 08/19/19 [History Last Taken Unknown] mycophenolate mofetil 500 mg PO BID 08/19/19 [History Last Taken Unknown] ondansetron 4 mg PO Q8H PRN PRN #7 tab 08/19/19 [Rx Last Taken Unknown] prednisone 5 mg PO DAILY 08/19/19 [History Last Taken Unknown] simvastatin 20 mg PO QHS 08/19/19 [History Last Taken Unknown] sulfamethoxazole-trimethoprim 1 ea PO MOWEFR 08/19/19 [History Last Taken Unknown] tacrolimus 0.5 mg PO Q12H 08/19/19 [History Last Taken Unknown] tacrolimus 2 mg PO Q12H 08/19/19 [History Last Taken Unknown] ursodiol 250 mg PO BID 08/19/19 [History Last Taken Unknown] levothyroxine 88 mcg PO DAILY 06/26/21 [History Last Taken Unknown] nitrofurantoin monohyd/m-cryst 100 mg PO Q12 #14 capsule 06/26/21 [Rx Last Taken Unknown] Allergy/AdvReac Type Severity Reaction Status Date / Time amoxicillin Allergy Hives Verified 06/26/21 19:28 Fish Containing Products Allergy Rash Verified 06/26/21 19:28 Iodinated Contrast Media Allergy Rash Verified 06/26/21 19:28 [Iodinated Contrast Media - IV Dye] Penicillins [PCN] Allergy Hives Verified 06/26/21 19:28 Family History Other Cancer Diabetes Heart disease Surgical History (Updated 06/30/21 @ 10:[address] Demarcus Huddleston MD) History of herniorrhaphy Liver transplant recipient Social History Smoking Status: Former smoker Physical Exam Const alert, oriented x3 and no apparent distress General Appearance: cooperative Exam Limitations: no limitations HEENT normocephalic and head/scalp atraumatic Eyes PERRL and EOMs intact bilaterally Neck supple and No nodes Resp Auscultation: diminished lung sounds Cardio regular rate and regular rhythm GI soft to palpation, non-tender and non-distended Extremity General Extremity: edema Skin no rashes or lesions noted Neuro CN's II-XII intact bilaterally Lab / Micro Data Result Diagrams: 06/29/21 05:30 06/30/21 05:58 Labs: Laboratory Results - last 24 hr 06/26/21 19:55: Diff Path Review Reviewed 06/27/21 06:08: Diff Path Review Reviewed 06/30/21 05:58: Sodium 139, Potassium 4.8, Chloride 116 H, Carbon Dioxide 18.0 L, Anion Gap 5, BUN 38 H, Creatinine 1.25 H, Estim Creat Clear Calc 38.11, Est GFR (MDRD) Af Amer 56 L, Est GFR (MDRD) Non-Af 46 L, BUN/Creatinine Ratio 30.4 H, Glucose 119 H, Calcium 8.8, Total Bilirubin 0.50, AST 32, ALT 22, Alkaline Phosphatase 84, Total Protein 6.5, Albumin 2.8 L, Globulin 3.7, Albumin/Globulin Ratio 0.8 L 06/30/21 05:58: Magnesium 1.9 Micro: Microbiology 06/26/21 20:35 Urine, Clean Catch Streptococcus pneumoniae Antigen (M - Final 06/26/21 20:35 Urine, Clean Catch Legionella Antigen - Final Radiology Impression Chest X-Ray 06/30/21 08:56 IMPRESSION: Improved aeration of both lungs although residual patchy infiltrates remain worse in the right lower lobe. Electronically Signed: Cachorro Fox MD at 9:43 EST , Service support ,
[2021-06-30 11:33] LABS: Bedside Glucose 123 mg/dL (70-110)
[2021-06-30] MEDS: 0.9% Saline Lock 10 ML Syringe IV (11:57)
[2021-06-30 12:15] LABS: Absolute Neutrophil Count 6.2 X10^3/uL (2.0-7.7); Basophil# 0.01 X10^3/uL; Basophil% 0.1 % (0-1); Hematocrit 43.2 % (37-47); Hemoglobin 13.5 g/dL (12.0-15.0); Lymphocyte % 4.3 % (19-41); Mean Corp Hgb Conc 31.3 g/dL (32-36); Mean Corpuscular Hgb 26.7 pg (27.0-32.0); Mean Corpuscular Volume 85.5 fL (81-99); Mean Platelet Vol. 10.2 fl (6.2-12.0); Monocyte# 0.42 X10^3/uL; NRBC Flagged by Analyzer 0 % (0-5); Neutrophil # 6.22 X10^3/uL (2.7-7.7); Neutrophil % 88.2 % (47-70); POSITIVE DIFFERENTIAL YES; Platelet Count 158 K/mm3 (150-450); RBC Distribution Width CV 14.4 % (11.6-14.6); RBC Distribution Width SD 45.1 fl (35.1-43.9); Red Blood Count 5.05 M/mm3 (4.2-5.4); White Blood Count 7.1 K/mm3 (4.4-11.0)
[2021-06-30 12:29] LABS: Differential Indicated SCAN CRITERIA MET
[2021-06-30 12:34] LABS: CPK Total, Creatine Kinase 72 U/L (26-192); Ferritin 1035 ng/mL (8-252)
[2021-06-30 12:36] LABS: D-Dimer Quantitative (DVT/PE) 1.57 FEU/ug/m (0.27-0.49)
[2021-06-30] MEDS: Oseltamivir Phosphate 75 MG Capsule PO (12:44)
[2021-06-30 13:08] LABS: Phosphorus 2.5 mg/dL (2.5-4.9)
--- NOTE | 2021-06-30 13:57 | CON.PCM.CC_ITS ---
Assessment & Plan Assessment/Plan (1) COVID-19: (2) Influenza B: PLAN: RECOMMENDATIONS: 1. Continue heated high flow oxygen and wean FiO2 for saturations greater than 90%. 2. Continue empiric antimicrobials. 3. Continue Decadron to complete 10-day treatment course. 4. Continue Tamiflu as ordered. 5. Continue prophylactic Lovenox. 6. Check BNP. If renal function continues to improve, will consider diuresis tomorrow. 7. Utilize BiPAP therapy nightly. IMPRESSIONS: 1. Acute hypoxemic respiratory failure secondary to COVID-19/influenza B The patient was initially admitted to the hospital on June 27 and subsequently tested positive for both COVID-19 and influenza. The patient is vaccinated at her baseline. However, she is immunosuppressed due to a history of a liver transplant. Her oxygenation status has worsened over the course of her hospitalization. Currently, she is being maintained on heated high flow oxygen, which will be continued to maintain saturations at or above 90%. Plan to continue Decadron, empiric antimicrobials, Tamiflu and prophylactic Lovenox. If renal function continues to improve, use of diuretics will be entertained. In the interim, recommend use of BiPAP therapy nightly as well. 2. Acute kidney injury Likely prerenal in etiology in the setting of her acute presentation. Creatinine is slowly improving. Will need to monitor volume status closely. If creatinine continues to improve, will consider diuresis tomorrow. Continue to monitor urine output. No current indication for renal replacement therapy. 3. Chronic baseline immunosuppressed state secondary to liver transplantation Continue baseline outpatient immunosuppressive regimen. 4. Morbid obesity/asthma/hypothyroidism/hyperlipidemia/GERD Complicates care, management, recovery and prognosis. Continue home medications as indicated. CODE status: Discussed CODE status at length including difference between FULL code, DNR-CCA and DNR-CC status. Following discussions about the differences in these status, patient requested full CODE STATUS. Advanced Care Planning Face to Face Time: 12 minutes This note was generated with [employer] dictation software. It may contain incorrect words, spelling, and punctuation that were not noted in checking the note before signing. HPI Consult Data Date of Consult: 06/30/21 HPI Narrative Reason for Consultation: Acute hypoxemic respiratory failure secondary to COVID- 19 pneumonia HPI Narrative: The patient is a 61-year-old female, with a history as outlined below, who presented to the emergency department on June 27 with abdominal pain, nausea, vomiting and diarrhea. The patient is immunosuppressed at baseline due to a history of autoimmune hepatitis requiring liver transplantation. The patient is vaccinated against coronavirus. She has not been feeling well for approximately 3 weeks. On presentation to the emergency department, the patient was noted to be afebrile hemodynamically stable. Initial laboratory evaluation was notable for a creatinine of 1.68. Coronavirus PCR was positive. Rapid influenza screen was positive for influenza B. Chest x-ray demonstrated multifocal airspace opacities. The patient was initially placed on antimicrobials and Decadron. She was also started on Tamiflu following evaluation by infectious diseases. The patient was admitted to the medical surgical floor. Since her admission, the patient's oxygenation status has steadily worsened. She is currently requiring heated high flow oxygen with an FiO2 requirement of 92% and flow rate of 60 L/min. The patient is documented to be overall net +3.6 L for the hospitalization. [facility] Medical History (Updated 06/30/21 @ 10:[address] Demarcus Huddleston MD) Former smoker Hypothyroidism Kidney disease Migraines Osteoporosis Home Medications albuterol sulfate [Ventolin HFA] 2 puff INHALATION Q6H PRN PRN 06/21/16 [History Last Taken Unknown] azathioprine 50 mg PO DAILY@0800 06/21/16 [History Last Taken 10/03/17] calcium-vitamin D3-vitamin K [Citracal-D3 Soft Chew] 1 ea PO DAILY 06/21/16 [History Last Taken 10/03/17] cyanocobalamin (vitamin B-12) [Vitamin B-12] 50,000 mcg PO MOORE 06/21/16 [History Last Taken 10/02/17] ondansetron 8 mg PO Q8H PRN PRN 06/21/16 [History Last Taken 07/12/17] pantoprazole 40 mg PO DAILY 06/21/16 [History Last Taken 10/03/17] zinc 50 mg PO DAILY 06/21/16 [History Last Taken 10/03/17] melatonin 3 mg PO QHS 09/04/16 [History Last Taken 10/02/17] furosemide 100 mg PO DAILY 11/02/16 [History Last Taken 10/02/17] tramadol 50 mg PO BID PRN PRN 02/14/17 [History Last Taken 10/03/17] ascorbic acid (vitamin C) [Vitamin C] 500 mg PO BIDCM 07/12/17 [History Last Taken 07/11/17] ferrous gluconate 325 mg PO BIDCM 07/12/17 [History Last Taken 10/03/17] Xifaxan 550 mg PO BID 10/04/17 [History Last Taken 10/03/17] calcium carbonate 500 mg PO BID 10/04/17 [History Last Taken Unknown] cholecalciferol (vitamin D3) [Vitamin D3] 2,000 unit PO DAILY 10/04/17 [History Last Taken 10/03/17] lactulose 60 ml PO BID #0 10/07/17 [Rx Last Taken 10/02/17] aspirin 81 mg PO DAILY 08/19/19 [History Last Taken Unknown] mycophenolate mofetil 500 mg PO BID 08/19/19 [History Last Taken Unknown] ondansetron 4 mg PO Q8H PRN PRN #7 tab 08/19/19 [Rx Last Taken Unknown] prednisone 5 mg PO DAILY 08/19/19 [History Last Taken Unknown] simvastatin 20 mg PO QHS 08/19/19 [History Last Taken Unknown] sulfamethoxazole-trimethoprim 1 ea PO MOWEFR 08/19/19 [History Last Taken Unknown] tacrolimus 0.5 mg PO Q12H 08/19/19 [History Last Taken Unknown] tacrolimus 2 mg PO Q12H 08/19/19 [History Last Taken Unknown] ursodiol 250 mg PO BID 08/19/19 [History Last Taken Unknown] levothyroxine 88 mcg PO DAILY 06/26/21 [History Last Taken Unknown] nitrofurantoin monohyd/m-cryst 100 mg PO Q12 #14 capsule 06/26/21 [Rx Last Taken Unknown] Allergy/AdvReac Type Severity Reaction Status Date / Time amoxicillin Allergy Hives Verified 06/26/21 19:28 Fish Containing Products Allergy Rash Verified 06/26/21 19:28 Iodinated Contrast Media Allergy Rash Verified 06/26/21 19:28 [Iodinated Contrast Media - IV Dye] Penicillins [PCN] Allergy Hives Verified 06/26/21 19:28 Family History Other Cancer Diabetes Heart disease Surgical History (Updated 06/30/21 @ 10:[address] Demarcus Huddleston MD) History of herniorrhaphy Liver transplant recipient Social History Smoking Status: Former smoker ROS Constitutional Constitutional: Reports fatigue and malaise Eyes Eyes: Denies blurry vision or change in vision ENT HEENT: Denies headache(s) or nasal congestion Cardiovascular Cardiovascular: Reports dyspnea Respiratory/Chest Respiratory/Chest: Reports cough and dyspnea Gastrointestinal Gastrointestinal: Reports abdominal pain, diarrhea, nausea and vomiting Genitourinary Genitourinary: Denies difficulty urinating Musculoskeletal Musculoskeletal: Denies arthralgias, back pain or joint pain Integumentary Integumentary: Denies lesions, rash or skin ulcer Neurologic Neurologic: Denies abnormal gait or abnormal speech Psychiatric Psychiatric: Denies anxiety Endocrine Endocrinology: Reports fatigue Hematologic/Lymphatic Hematologic/Lymphatic: Denies easy bleeding or easy bruising Physical Exam Const alert and no apparent distress Constitutional Narrative: Tearful at times during my conversation with her. General Appearance: cooperative Nutritional Appearance: morbidly obese HEENT normocephalic, head/scalp atraumatic and moist oral mucous membranes Eyes PERRL, EOMs intact bilaterally and conjunctivae normal Neck supple General: trachea midline Chest inspection of chest normal Resp no use of accessory muscles Auscultation: diminished lung sounds; Negative for rales, rhonchi or wheezes Cardio regular rate and regular rhythm GI normal to inspection, nondistended, normoactive bowel sounds Extremity no clubbing, cyanosis or edema Skin no rashes or lesions noted Neuro CN's II-XII intact bilaterally, moves all extremities and no focal motor deficits Psych cooperative and affect normal Lab / Micro Data Result Diagrams: 06/30/21 11:52 06/30/21 05:58 Labs: Laboratory Results - last 24 hr 06/26/21 19:55: Diff Path Review Reviewed 06/27/21 06:08: Diff Path Review Reviewed 06/30/21 05:58: Sodium 139, Potassium 4.8, Chloride 116 H, Carbon Dioxide 18.0 L , Anion Gap 5, BUN 38 H, Creatinine 1.25 H, Estim Creat Clear Calc 38.11, Est GFR (MDRD) Af Amer 56 L, Est GFR (MDRD) Non-Af 46 L, BUN/Creatinine Ratio 30.4 H , Glucose 119 H, Calcium 8.8, Total Bilirubin 0.50, AST 32, ALT 22, Alkaline Phosphatase 84, Total Protein 6.5, Albumin 2.8 L, Globulin 3.7, Albumin/Globulin Ratio 0.8 L 06/30/21 05:58: Magnesium 1.9 06/30/21 11:24: POC Glucose 123 H 06/30/21 11:52: WBC 7.1, RBC 5.05, Hgb 13.5, Hct 43.2, MCV 85.5, MCH 26.7 L, MCHC 31.3 L D, RDW Std Deviation 45.1 H, RDW Coeff of Tyrell 14.4, Plt Count 158, MPV 10.2, Immature Gran % (Auto) 1.400 H, Neut % (Auto) 88.2 H, Lymph % (Auto) 4.3 L, [place] % (Auto) 6.0, Eos % (Auto) 0.0, Baso % (Auto) 0.1, Absolute Neuts (auto) 6.2, Absolute Lymphs (auto) 0.30 L, Nucleated RBC % 0 06/30/21 11:52: D-Dimer Quant (PE/DVT) 1.57 H* 06/30/21 11:52: Ferritin 1035 H, Total Creatine Kinase 72, C-React Prot Ext Range 23.90 H 06/30/21 11:52: Phosphorus 2.5 Radiology Impression Chest X-Ray 06/30/21 08:56 IMPRESSION: Improved aeration of both lungs although residual patchy infiltrates remain worse in the right lower lobe. Electronically Signed: Cachorro Fox MD at 9:43 EST , Service support , Charges/Coding Visit Charges Inpatient E&M: 49195 Init Hosp L3 Procedures Hospitalists Procedures: 27476 Advncd Care Plan 30 Min
--- NOTE | 2021-06-30 14:22 | NURSING ---
pt upset and crying during VS.
[2021-06-30] MEDS: Acetaminophen 325 MG Tablet 650 MG PO (14:23)
[2021-06-30 14:58] LABS: BNP,B-Type NATRIURETIC PEPTIDE 257.4 pg/mL (0-100); Vancomycin, Trough Level 19.9 ug/mL (5.0-15.0)
--- NOTE | 2021-06-30 15:33 | PHA.PHARE_ITS ---
Consult Pharmacy has been consulted to manage selected antiobiotic: Vancomycin Type of Consult: Follow-up Prior Doses of Antibiotics Received/Current Regimen: currently on vanc 750mg IV q12h Labs: Sodium 139 mmol/L (136-145) 06/30/21 05:58 Potassium 4.8 mmol/L (3.5-5.1) 06/30/21 05:58 Chloride 116 mmol/L (98-107) H 06/30/21 05:58 Carbon Dioxide 18.0 mmol/L (21.0-32.0) L 06/30/21 05:58 Anion Gap 5 (5-15) 06/30/21 05:58 BUN 38 mg/dL (7-18) H 06/30/21 05:58 Creatinine 1.25 mg/dL (0.55-1.02) H 06/30/21 05:58 Est GFR (MDRD) Af Amer 56 mL/min (>60) L 06/30/21 05:58 Est GFR (MDRD) Non-Af 46 mL/min (>60) L 06/30/21 05:58 BUN/Creatinine Ratio 30.4 RATIO (10-20) H 06/30/21 05:58 Glucose 119 mg/dL (74-106) H 06/30/21 05:58 Vancomycin Trough 19.9 ug/mL (5.0-15.0) H 06/30/21 14:13 Microbiology: Microbiology 06/28/21 11:52 Blood Culture (Wb) - Left Hand Blood Culture - Preliminary No growth in 48 hours. 06/28/21 12:01 Blood Culture (Wb) - Right Hand Blood Culture - Preliminary No growth in 48 hours. 06/26/21 20:35 Urine, Clean Catch Streptococcus pneumoniae Antigen (M - Final 06/26/21 20:35 Urine, Clean Catch Legionella Antigen - Final 06/28/21 16:50 Mucosa - Nasopharyngeal Influenza Types A,B Direct FA (ROSEMARIE) - Final Influenzae B 06/26/21 20:35 Urine, Clean Catch Urine Culture - Final Escherichia coli Weight used for dosin.5 kg Estimated Creatinine Clearance: 53ml/min Goal Trough: 15-20 mcg/mL Pharmacy Plan for Drug Dosing: The vanc trough drawn at 14:13 today (approx 12.5 hours after the previous dose) was 19.9. This is already at the higher end of the goal range and most likely would have been above 20 if drawn at the usual 11.5-12 hour ross for q12h d osing. Therefore, will decrease the next dose to 500mg IV q12h. Since this afternoon's dose of 750mg was already given, will start the new 500mg dose in approximately 14 hours instead of 12 hours. Repeat a vanc trough level before the 4th new dose. Pharmacy Service will continue to monitor and adjust dosing as required. Follow-Up Labs: Trough Vancomycin Labs to be done on [date and time ordered]: 07/02/21 15:30
--- NOTE | 2021-06-30 15:46 | NURSING ---
Patients daughter Tapan called. Requesting that patient be allowed to walk around in her room. States that she knows her mom and walking around will make her feel better. This nurse talked with Marianne Costello primary RN and respiratory therapy. Patient is on airvo at 60liters. Patient took long time to recover getting to chair. Cannot tolerate much activity plus with airvo- not much ability to walk around. Not able to get patient off airvo at this time. Returned call to Tapan to explain the above. Daughter would really like patient to walk. explained that patient cannot tolerate that kind of activity at this time. She is in the chair. Explained to daughter we will keep trying to reduce her oxygen as much as we can so she can walk but not reasonable at this time.
[2021-06-30] MEDS: Ondansetron 4 MG/2 ML Vial IV ×2 (16:27→22:50)
[2021-06-30] MEDS: Oseltamivir Phosphate 30 MG Capsule PO (22:45)
[2021-06-30] MEDS: Atorvastatin Calcium 10 MG Tablet PO (22:48)
[2021-06-30] MEDS: Enoxaparin 40 MG/0.4 ML Syringe SC (23:01)
--- NOTE | 2021-06-30 23:05 | NURSING ---
Patient refusing bipap at this time. I want to try to go without it tonight. Educated that Dr. Akins from Pulmonology wants her to wear it at night. This RN also said, It looks like to me that you need it. You are short of breath and breathing fast, but you have the right to refuse it.
[2021-07-01] VITALS (21 sets, daily range): BP systolic 112–148; BP diastolic 61–91; PULSE 72–97; RESP 16–24; TEMP 36.2–37.1; O2SAT 76–98
[2021-07-01] MEDS: Vancomycin IV 500 MG/100 ML BAG 100 MG IV ×2 (04:14→15:33)
[2021-07-01] MEDS: 0.9% Saline Lock 10 ML Syringe IV ×2 (04:19→22:18)
[2021-07-01] MEDS: Acetaminophen 325 MG Tablet 650 MG PO ×2 (06:30→22:11)
[2021-07-01 09:48] LABS: Absolute Lymphocyte Count 0.38 X10^3/uL (0.83-4.51); Absolute Neutrophil Count 7.4 X10^3/uL (2.0-7.7); Basophil# 0.01 X10^3/uL; Basophil% 0.1 % (0-1); Hematocrit 42.6 % (37-47); Hemoglobin 13.5 g/dL (12.0-15.0); Lymphocyte # 0.38 X10^3/ul (0.83-4.51); Lymphocyte % 4.6 % (19-41); Mean Corp Hgb Conc 31.7 g/dL (32-36); Mean Corpuscular Hgb 26.9 pg (27.0-32.0); Mean Platelet Vol. 9.7 fl (6.2-12.0); Monocyte# 0.45 X10^3/uL; Monocyte% 5.4 % (0-10); NRBC Flagged by Analyzer 0 % (0-5); Neutrophil # 7.37 X10^3/uL (2.7-7.7); Neutrophil % 88.7 % (47-70); POSITIVE DIFFERENTIAL YES; Platelet Count 170 K/mm3 (150-450); RBC Distribution Width CV 14.1 % (11.6-14.6); RBC Distribution Width SD 43.8 fl (35.1-43.9); Red Blood Count 5.01 M/mm3 (4.2-5.4); White Blood Count 8.3 K/mm3 (4.4-11.0)
[2021-07-01 09:49] LABS: Differential Indicated SCAN CRITERIA MET
[2021-07-01 10:13] LABS: ALB/GLOB Ratio 0.7 RATIO (0.9-2.4); AST(SGOT) 31 U/L (15-37); Alanine Aminotransfer ALT/SGPT 21 U/L (13-56); Albumin, Serum 2.8 g/dL (3.2-5.0); Alkaline Phosphatase 86 U/L (45-117); Anion Gap 8 (5-15); BUN 37 mg/dL (7-18); BUN/Creat Ratio 24.7 RATIO (10-20); Calcium,Total 8.5 mg/dL (8.5-10.1); Chloride 113 mmol/L (98-107); EST Glomerular Filtration Rate 37 mL/min (>60); Est Glom Filt Rate - Afr Amer 45 mL/min (>60); Estimated Creatinine Clearance 31.76 ml/min; Globulin 3.8 g/dL (2.2-4.2); Glucose 162 mg/dL (74-106); Protein, Total 6.6 g/dL (6.4-8.2); Sodium Level 139 mmol/L (136-145)
[2021-07-01] MEDS: Enoxaparin 40 MG/0.4 ML Syringe SC ×2 (10:13→22:10)
[2021-07-01] MEDS: Ursodiol 250 MG Tablet PO ×2 (10:14→22:14)
[2021-07-01] MEDS: Tacrolimus Anhydrous 1 MG Capsule 2 MG PO ×2 (10:14→22:13)
[2021-07-01] MEDS: guaiFENesin 1,200 MG Tablet 1200 MG PO ×2 (10:14→22:12)
[2021-07-01] MEDS: Smz/Tmp Ds Tablet 1 TABLET PO (10:14)
[2021-07-01] MEDS: Aspirin E.C. 81 MG Tablet PO (10:14)
[2021-07-01] MEDS: rifAXIMin 550 MG Tablet PO ×2 (10:14→22:11)
[2021-07-01] MEDS: Levothyroxine 88 MCG Tablet PO (10:14)
[2021-07-01] MEDS: Mycophenolate Mofetil 250 MG Capsule 500 MG PO ×2 (10:14→22:15)
[2021-07-01] MEDS: dexAMETHasone 10 MG/ML Vial 6 MG IV (10:15)
[2021-07-01] MEDS: Tacrolimus 0.5 MG Capsule PO ×2 (10:15→22:11)
[2021-07-01] MEDS: Oseltamivir Phosphate 30 MG Capsule PO ×2 (10:15→22:13)
[2021-07-01] MEDS: Ondansetron 4 MG/2 ML Vial IV ×2 (10:34→22:09)
--- NOTE | 2021-07-01 12:00 | PN.CC_ITS ---
Assessment & Plan Assessment/Plan (1) COVID-19: (2) Influenza B: PLAN: RECOMMENDATIONS: 1. Continue heated high flow oxygen and wean FiO2 for saturations greater than 90%. 2. Continue empiric antimicrobials. 3. Continue Decadron to complete 10-day treatment course. 4. Continue Tamiflu as ordered. 5. Continue prophylactic Lovenox. 6. Utilize BiPAP therapy nightly. IMPRESSIONS: 1. Acute hypoxemic respiratory failure secondary to COVID-19/influenza B The patient was initially admitted to the hospital on June 27 and subsequent ly tested positive for both COVID-19 and influenza. The patient is vaccinated at her baseline. However, she is immunosuppressed due to a history of a liver transplant. Her oxygenation status has worsened over the course of her hospitalization. Currently, she is being maintained on heated high flow oxygen, which will be continued to maintain saturations at or above 90%. Plan to continue Decadron, empiric antimicrobials, Tamiflu and prophylactic Lovenox. In the interim, recommend use of BiPAP therapy nightly as well. 2. Acute kidney injury Likely prerenal in etiology in the setting of her acute presentation. Will need to monitor volume status closely. If creatinine improves, will consider diuresis. Continue to monitor urine output. No current indication for renal replacement therapy. 3. Chronic baseline immunosuppressed state secondary to liver transplantation Continue baseline outpatient immunosuppressive regimen. 4. Morbid obesity/asthma/hypothyroidism/hyperlipidemia/GERD Complicates care, management, recovery and prognosis. Continue home medications as indicated. This note was generated with [employer] dictation software. It may contain incorrect words, spelling, and punctuation that were not noted in checking the note before signing. Subjective Subjective The patient was seen and examined at the bedside this morning. Events from the last 24 hours have been reviewed. The patient is currently afebrile, hemody namically stable and maintaining appropriate oxygen saturations on Airvo heated high flow with an FiO2 requirement of 80% and flow rate of 60 L/min. The patient is currently documented to be overall net +4 L for the hospitalization. She remains on antimicrobials, Decadron, Tamiflu and prophylactic Lovenox. Creatinine has increased to 1.5 this morning. Objective Data Objective Data The patient's most recent lab work, culture data and imaging studies have all been personally reviewed. Coronavirus PCR was positive on June 26. Influenza screen was positive for flu B. Vital Signs: Vital Signs Temp Pulse Resp BP Pulse Ox 97.9 F 91 20 H 112/72 85 07/01/21 10:43 07/01/21 10:43 07/01/21 10:43 07/01/21 10:43 07/01/21 11:01 Oxygen Flow Rate (L/min) [ 3 AMBULATING with Oxygen #1] Oxygen Flow Rate (L/min) 60 Oxygen Delivery Method Airvo Weight: 104.5 kg Body Mass Index (BMI) 40.8 Intake & Output: Intake and Output for Last 24 Hours 06/29/21 06/30/21 07/01/21 23:59 23:59 23:59 Intake Total 1782.67 / 1782.67 1030 / 1030 200 / 200 Output Total 550 / 950 500 / 500 Balance 1782.67 / 1782.67 480 / 80 -300 / -300 Lab / Micro Data Attestation: I reviewed the patient's lab results. Result Diagrams: 07/01/21 09:38 07/01/21 09:38 Labs: Laboratory Results - last 24 hr 06/30/21 11:52: WBC 7.1, RBC 5.05, Hgb 13.5, Hct 43.2, MCV 85.5, MCH 26.7 L, MCHC 31.3 L D, RDW Std Deviation 45.1 H, RDW Coeff of Tyrell 14.4, Plt Count 158, MPV 10.2, Immature Gran % (Auto) 1.400 H, Neut % (Auto) 88.2 H, Lymph % (Auto) 4.3 L, [place] % (Auto) 6.0, Eos % (Auto) 0.0, Baso % (Auto) 0.1, Absolute Neuts (auto) 6.2, Absolute Lymphs (auto) 0.30 L, Nucleated RBC % 0 06/30/21 11:52: D-Dimer Quant (PE/DVT) 1.57 H* 06/30/21 11:52: Ferritin 1035 H, Total Creatine Kinase 72, C-React Prot Ext Range 23.90 H 06/30/21 11:52: Phosphorus 2.5 06/30/21 14:13: Vancomycin Trough 19.9 H 06/30/21 14:13: B-Natriuretic Peptide 257.4 H 07/01/21 09:38: WBC 8.3, RBC 5.01, Hgb 13.5, Hct 42.6, MCV 85.0, MCH 26.9 L, MCHC 31.7 L, RDW Std Deviation 43.8, RDW Coeff of Tyrell 14.1, Plt Count 170, MPV 9.7, Immature Gran % (Auto) 1.200 H, Neut % (Auto) 88.7 H, Lymph % (Auto) 4.6 L, [place] % (Auto) 5.4, Eos % (Auto) 0.0, Baso % (Auto) 0.1, Absolute Neuts (auto) 7.4, Absolute Lymphs (auto) 0.38 L, Nucleated RBC % 0 07/01/21 09:38: Sodium 139, Potassium 4.0, Chloride 113 H, Carbon Dioxide 18.0 L , Anion Gap 8, BUN 37 H, Creatinine 1.50 H, Estim Creat Clear Calc 31.76, Est GFR (MDRD) Af Amer 45 L, Est GFR (MDRD) Non-Af 37 L, BUN/Creatinine Ratio 24.7 H , Glucose 162 H, Calcium 8.5, Total Bilirubin 0.50, AST 31, ALT 21, Alkaline Phosphatase 86, Total Protein 6.6, Albumin 2.8 L, Globulin 3.8, Albumin/Globulin Ratio 0.7 L Micro: Microbiology 06/28/21 11:52 Blood Culture (Wb) - Left Hand Blood Culture - Preliminary No growth in 48 hours. 06/28/21 12:01 Blood Culture (Wb) - Right Hand Blood Culture - Preliminary No growth in 48 hours. 06/26/21 20:35 Urine, Clean Catch Streptococcus pneumoniae Antigen (M - Final 06/26/21 20:35 Urine, Clean Catch Legionella Antigen - Final 06/28/21 16:50 Mucosa - Nasopharyngeal Influenza Types A,B Direct FA (ROSEMARIE) - Final Influenzae B 06/26/21 20:35 Urine, Clean Catch Urine Culture - Final Escherichia coli Physical Exam Const alert and no apparent distress General Appearance: cooperative Nutritional Appearance: morbidly obese HEENT normocephalic, head/scalp atraumatic and moist oral mucous membranes Eyes PERRL, EOMs intact bilaterally and conjunctivae normal Neck supple General: trachea midline Chest inspection of chest normal Resp no use of accessory muscles Auscultation: diminished lung sounds; Negative for rales, rhonchi or wheezes Cardio regular rate and regular rhythm GI normal to inspection, nondistended, normoactive bowel sounds Extremity no clubbing, cyanosis or edema Skin no rashes or lesions noted Neuro CN's II-XII intact bilaterally, moves all extremities and no focal motor defic its Psych cooperative and affect normal Charges/Coding Visit Charges Inpatient E&M: 41119 Subs Hosp L3
--- NOTE | 2021-07-01 13:28 | PN.HOSP_ITS ---
Subjective Subjective Follow-up for acute severe hypoxic respiratory failure Afebrile. Patient is states her respiratory status and shortness of breath is better than yesterday. On 60% FiO2 AIRVO. Was on BiPAP last night. Objective Data Objective Data Vital Signs: Vital Signs Temp Pulse Resp BP Pulse Ox 97.9 F 91 20 H 112/72 85 07/01/21 10:43 07/01/21 10:43 07/01/21 10:43 07/01/21 10:43 07/01/21 11:01 Oxygen Flow Rate (L/min) [ 3 AMBULATING with Oxygen #1] Oxygen Flow Rate (L/min) 60 Oxygen Delivery Method Airvo Weight: 230 lb 6.129 oz Body Mass Index (BMI) 40.8 Intake & Output: Intake and Output for Last 24 Hours 06/29/21 06/30/21 07/01/21 23:59 23:59 23:59 Intake Total 1782.67 / 1782.67 1030 / 1030 200 / 200 Output Total 550 / 950 700 / 700 Balance 1782.67 / 1782.67 480 / 80 -500 / -500 Lab / Micro Data Result Diagrams: 07/01/21 09:38 07/01/21 09:38 Labs: Laboratory Results - last 24 hr 06/30/21 14:13: Vancomycin Trough 19.9 H 06/30/21 14:13: B-Natriuretic Peptide 257.4 H 07/01/21 09:38: WBC 8.3, RBC 5.01, Hgb 13.5, Hct 42.6, MCV 85.0, MCH 26.9 L, MCHC 31.7 L, RDW Std Deviation 43.8, RDW Coeff of Tyrell 14.1, Plt Count 170, MPV 9.7, Immature Gran % (Auto) 1.200 H, Neut % (Auto) 88.7 H, Lymph % (Auto) 4.6 L, [place] % (Auto) 5.4, Eos % (Auto) 0.0, Baso % (Auto) 0.1, Absolute Neuts (auto) 7.4, Absolute Lymphs (auto) 0.38 L, Nucleated RBC % 0 07/01/21 09:38: Sodium 139, Potassium 4.0, Chloride 113 H, Carbon Dioxide 18.0 L , Anion Gap 8, BUN 37 H, Creatinine 1.50 H, Estim Creat Clear Calc 31.76, Est GFR (MDRD) Af Amer 45 L, Est GFR (MDRD) Non-Af 37 L, BUN/Creatinine Ratio 24.7 H , Glucose 162 H, Calcium 8.5, Total Bilirubin 0.50, AST 31, ALT 21, Alkaline Phosphatase 86, Total Protein 6.6, Albumin 2.8 L, Globulin 3.8, Albumin/Globulin Ratio 0.7 L Micro: Microbiology 06/28/21 11:52 Blood Culture (Wb) - Left Hand Blood Culture - Preliminary No growth in 48 hours. 06/28/21 12:01 Blood Culture (Wb) - Right Hand Blood Culture - Preliminary No growth in 48 hours. 06/26/21 20:35 Urine, Clean Catch Streptococcus pneumoniae Antigen (M - Final 06/26/21 20:35 Urine, Clean Catch Legionella Antigen - Final 06/28/21 16:50 Mucosa - Nasopharyngeal Influenza Types A,B Direct FA (ROSEMARIE) - Final Influenzae B 06/26/21 20:35 Urine, Clean Catch Urine Culture - Final Escherichia coli Physical Exam Narrative General: Alert, Oriented x3, Cooperative, BMI 40.8 kg/m? HEENT: Atraumatic, PERRLA, EOMI, Normocephalic Oral: On AIRVO will continue with BiPAP. Neck: Supple, No JVD, Negative Carotid Bruits Lungs: Dyspnea at rest, tachypnea and severe hypoxia. Air entry diminished in bilateral lung bases. Bilateral wheezing Cardiovascular: Regular rate, Regular Rhythm, Normal S1, Normal S2, No murmurs Abdomen: Bowel Sounds Present, Soft, Non Tender, Non-Distended : No renal angle tenderness. No suprapubic tenderness. Extremities: Mild edema of lower extremities edema, with generalized fat. [place] hump over neck. Skin: No rashes, No breakdown Musculoskeletal: No Tenderness to Palpation of Joints or Extremities Neurological: Cranial nerves II-XII grossly intact, DTR 2+/4 and Symmetrical, Neuro grossly intact Psych/Mental Status: Normal Affect, Appropriate. Assessment & Plan Assessment/Plan (1) Hypoxia: (2) Respiratory failure: QUALIFIERS: Chronicity: acute Respiratory failure complication: hypoxia Qualified Code(s): J96.01 - Acute respiratory failure with hypoxia (3) Suspected COVID-19 virus infection: PLAN: 1. Acute hypoxic respiratory failure due to bilateral COVID-19 pneumonia and possible bacterial secondary infection: 06/29: Patient oxygenation and ventilation is worsening. On air Vo, 92% FiO2. On IV antibiotic vancomycin and cefepime. Bronchopulmonary hygiene with incentive spirometry with Pep and Mucinex 06/30: Discussed with ID. Agree with antibiotic plan. Discussed with materials scientist. On 94 200% BiPAP. 07/01: Respiratory status is slightly better than yesterday. On 60% FiO2. On intermittent furosemide. The patient is doing incentive spirometry and pep 2. Acute COVID-19 pneumonia with bacterial superinfection Onset is probably around 3 weeks ago Continue with dexamethasone, when patient has completed dexamethasone would wean prednisone back to her 5 mg daily. Not a candidate for remdesivir given the timing 06/30: Influenza B positive. Tamiflu added. Continue Decadron. Not candidate for baricitinib for history of liver transplant immunosuppression. ALC 0.3 K. ANC 6.2 thousand. D-dimer 1.57. Serum magnesium and phosphorus level normal. CRP, ferritin are elevated. Chest x-ray on 06/30 shows improved aeration with residual patchy infiltrates worse in right lower lobe 3. Status post liver transplant. Immunocompromised host. Continue steroids, tacrolimus, mycophenolate However the patient the option to be transferred to [facility] where her transplant was performed. She would prefer to stay here. ALT AST normal limit. Total bilirubin 0.5. Alkaline phosphatase normal. 4. OPAL on CKD stage 3b: Serum creatinine improved from 1.68-1.25. Patient creatinine was normal about 1.0 in May 2017 and then gradually improved probably due to cirrhosis it was about 1.5-1.6 in in 2017-07 26. 07/01: BUN/creatinine 37/1.5. Worsening due to furosemide 5. VTE prophylaxis: Enoxaparin 30 mg SQ twice daily estimated creatinine clearance 39 mL/min.. Discontinue if platelet count drops less than 50,000 or hemoglobin less than 8 g% Total time of the visit including total time spent in counseling or coordination of care, (more than 50% of the total time, spent in obtaining medical information from nurses and other ancillary care providers,explaining to the patient about labs, imaging, diagnosis and management), discussion with consultants with complexity of immunosuppression and liver transplant, review of labs and imaging is 40 minutes. Charges/Coding Visit Charges Inpatient E&M: 75007 Subs Hosp L2
[2021-07-01] MEDS: Furosemide 40 MG/4 ML Vial IV (14:14)
--- NOTE | 2021-07-01 20:45 | NURSING ---
Daughter called unit at this time, very frustrated, with concerns about her mother. Daughter was yelling and cussing at this RN, stating that nobody is listening to her and only telling her what to do. Claims that staff has tried to make patient wear bipap. This RN looked back through charting and notified daughter that it didn't appear that she was on bipap. Daughter also dissatisfied with staff promptness to mother's call light. My mother had to wait over 15 minutes today on staff to come into room after calling out. Daughter then closed conversation with If I have to come in there it's not going to be pretty.
[2021-07-01] MEDS: Atorvastatin Calcium 10 MG Tablet PO (22:16)
[2021-07-02] VITALS (45 sets, daily range): BP systolic 93–166; BP diastolic 45–125; PULSE 66–100; RESP 12–48; TEMP 35.9–37.2; O2SAT 73–99
--- NOTE | 2021-07-02 02:41 | NURSING ---
Patient educated about Bipap, that it would be beneficial and that doctor wants her to wear it at night. Patient wants to try it without tonight. Per patient she has a fear of wearing the mask. This RN, told patient it is ultimately her decision.
[2021-07-02] MEDS: Vancomycin IV 500 MG/100 ML BAG 100 MG IV ×2 (04:33→21:07)
[2021-07-02] MEDS: LORazepam 2 MG/ML Syringe 0.5 MG IV ×2 (04:39→09:02)
--- NOTE | 2021-07-02 04:55 | CPS ---
patient requested bipap at time of visit due to sob.
[2021-07-02 06:07] LABS: Absolute Lymphocyte Count 0.35 X10^3/uL (0.83-4.51); Absolute Neutrophil Count 6.3 X10^3/uL (2.0-7.7); Basophil# 0.01 X10^3/uL; Basophil% 0.1 % (0-1); Hematocrit 40.7 % (37-47); Lymphocyte # 0.35 X10^3/ul (0.83-4.51); Lymphocyte % 4.9 % (19-41); Mean Corp Hgb Conc 31.9 g/dL (32-36); Mean Corpuscular Hgb 27.1 pg (27.0-32.0); Mean Platelet Vol. 10.2 fl (6.2-12.0); Monocyte# 0.39 X10^3/uL; Monocyte% 5.5 % (0-10); NRBC Flagged by Analyzer 0 % (0-5); Neutrophil # 6.28 X10^3/uL (2.7-7.7); Neutrophil % 88.4 % (47-70); POSITIVE DIFFERENTIAL YES; Platelet Count 155 K/mm3 (150-450); RBC Distribution Width CV 14.2 % (11.6-14.6); RBC Distribution Width SD 44.2 fl (35.1-43.9); Red Blood Count 4.79 M/mm3 (4.2-5.4); White Blood Count 7.1 K/mm3 (4.4-11.0)
[2021-07-02 06:10] LABS: Differential Indicated SCAN CRITERIA MET
[2021-07-02 06:55] LABS: ALB/GLOB Ratio 0.6 RATIO (0.9-2.4); AST(SGOT) 30 U/L (15-37); Alanine Aminotransfer ALT/SGPT 19 U/L (13-56); Albumin, Serum 2.6 g/dL (3.2-5.0); Alkaline Phosphatase 87 U/L (45-117); Anion Gap 9 (5-15); BUN 38 mg/dL (7-18); BUN/Creat Ratio 24.7 RATIO (10-20); Calcium,Total 8.6 mg/dL (8.5-10.1); Chloride 109 mmol/L (98-107); Creatinine, Serum 1.54 mg/dL (0.55-1.02); EST Glomerular Filtration Rate 36 mL/min (>60); Est Glom Filt Rate - Afr Amer 44 mL/min (>60); Estimated Creatinine Clearance 30.93 ml/min; Glucose 132 mg/dL (74-106); Potassium 4.5 mmol/L (3.5-5.1); Protein, Total 6.6 g/dL (6.4-8.2); Sodium Level 137 mmol/L (136-145)
--- NOTE | 2021-07-02 08:46 | PCM.PN.INT ---
Assessment & Plan Assessment/Plan (1) COVID-19: (2) Influenza B: PLAN: RECOMMENDATIONS: 1. Continue BiPAP therapy and wean FiO2 for saturations greater than 90%. 2. Continue empiric antimicrobials. 3. Continue Decadron to complete 10-day treatment course. 4. Continue Tamiflu as ordered. 5. Continue prophylactic Lovenox. 6. Holding on diuretics due to renal function. IMPRESSIONS: 1. Acute hypoxemic respiratory failure secondary to COVID-19/influenza B The patient was initially admitted to the hospital on June 27 and subsequently tested positive for both COVID-19 and influenza. The patient is vaccinated at her baseline. However, she is immunosuppressed due to a history of a liver transplant. Her oxygenation status has worsened over the course of her hospitalization. She has now requiring continuous BiPAP support. It is reasonable to continue Decadron, empiric antimicrobials, Tamiflu and prophylactic Lovenox. Wean FiO2 for oxygen saturations greater than 90%. Diuretics remain on hold due to underlying renal insufficiency. The patient is at high risk for further clinical decompensation and the need for intubation in the next 24 to 48 hours. 2. Acute kidney injury Likely prerenal in etiology in the setting of her acute presentation. Will need to monitor volume status closely. If creatinine improves, will consider diuresis. Continue to monitor urine output. No current indication for renal replacement therapy. 3. Chronic baseline immunosuppressed state secondary to liver transplantation Continue baseline outpatient immunosuppressive regimen. 4. Morbid obesity/asthma/hypothyroidism/hyperlipidemia/GERD Complicates care, management, recovery and prognosis. Continue home medications as indicated. TIME: 34 minutes of critical care time, independent of procedures, was spent addressing the patient's acute hypoxemic respiratory failure secondary to combined COVID-19 and influenza B, acute kidney injury, review of all data and collaboration with the care team. Subjective Subjective The patient was seen and examined at the bedside this morning. Events from the last 24 hours have been reviewed. The patient is currently afebrile and hemodynamically stable. Unfortunately, the patient's oxygenation status continues to worsen. She is now BiPAP dependent with an FiO2 requirement of 100%. The patient is currently documented to be overall net +2.3 L for the hospitalization. She remains on antimicrobials, Decadron, Tamiflu and prophylactic Lovenox. In light of her respiratory decompensation, the decision was made to transfer the patient to the intensive care unit. The patient is frustrated about her overall lack of improvement. Objective Data Objective Data The patient's most recent lab work, culture data and imaging studies have all been personally reviewed. Coronavirus PCR was positive on June 26. Influenza screen was positive for flu B. Vital Signs: Vital Signs Temp Pulse Resp BP Pulse Ox 97.6 F L 95 20 H 134/70 H 94 07/02/21 04:50 07/02/21 07:58 07/02/21 07:58 07/02/21 04:50 07/02/21 07:58 Oxygen Flow Rate (L/min) [ 3 AMBULATING with Oxygen #1] Oxygen Flow Rate (L/min) 60 Oxygen Delivery Method Bi-pap Weight: 104.5 kg Body Mass Index (BMI) 40.8 Intake & Output: Intake and Output for Last 24 Hours 06/30/21 07/01/21 07/02/21 23:59 23:59 23:59 Intake Total 1030 / 1030 400 / 400 100 / 100 Output Total 550 / 950 2350 / 2350 0 / 0 Balance 480 / 80 -1950 / -1950 100 / 100 Lab / Micro Data Attestation: I reviewed the patient's lab results. Result Diagrams: 07/02/21 05:54 07/02/21 05:54 Labs: Laboratory Results - last 24 hr 07/01/21 09:38: WBC 8.3, RBC 5.01, Hgb 13.5, Hct 42.6, MCV 85.0, MCH 26.9 L, MCHC 31.7 L, RDW Std Deviation 43.8, RDW Coeff of Tyrell 14.1, Plt Count 170, MPV 9.7, Immature Gran % (Auto) 1.200 H, Neut % (Auto) 88.7 H, Lymph % (Auto) 4.6 L, [place] % (Auto) 5.4, Eos % (Auto) 0.0, Baso % (Auto) 0.1, Absolute Neuts (auto) 7.4, Absolute Lymphs (auto) 0.38 L, Nucleated RBC % 0 07/01/21 09:38: Sodium 139, Potassium 4.0, Chloride 113 H, Carbon Dioxide 18.0 L, Anion Gap 8, BUN 37 H, Creatinine 1.50 H, Estim Creat Clear Calc 31.76, Est GFR (MDRD) Af Amer 45 L, Est GFR (MDRD) Non-Af 37 L, BUN/Creatinine Ratio 24.7 H, Glucose 162 H, Calcium 8.5, Total Bilirubin 0.50, AST 31, ALT 21, Alkaline Phosphatase 86, Total Protein 6.6, Albumin 2.8 L, Globulin 3.8, Albumin/Globulin Ratio 0.7 L 07/02/21 05:54: WBC 7.1, RBC 4.79, Hgb 13.0, Hct 40.7, MCV 85.0, MCH 27.1, MCHC 31.9 L, RDW Std Deviation 44.2 H, RDW Coeff of Tyrell 14.2, Plt Count 155, MPV 10.2, Immature Gran % (Auto) 1.100 H, Neut % (Auto) 88.4 H, Lymph % (Auto) 4.9 L, [place] % (Auto) 5.5, Eos % (Auto) 0.0, Baso % (Auto) 0.1, Absolute Neuts (auto) 6.3, Absolute Lymphs (auto) 0.35 L, Nucleated RBC % 0 07/02/21 05:54: Sodium 137, Potassium 4.5, Chloride 109 H, Carbon Dioxide 19.0 L, Anion Gap 9, BUN 38 H, Creatinine 1.54 H, Estim Creat Clear Calc 30.93, Est GFR (MDRD) Af Amer 44 L, Est GFR (MDRD) Non-Af 36 L, BUN/Creatinine Ratio 24.7 H, Glucose 132 H, Calcium 8.6, Total Bilirubin 0.60, AST 30, ALT 19, Alkaline Phosphatase 87, Total Protein 6.6, Albumin 2.6 L, Globulin 4.0, Albumin/Globulin Ratio 0.6 L Micro: Microbiology 06/28/21 11:52 Blood Culture (Wb) - Left Hand Blood Culture - Preliminary No growth in 48 hours. 06/28/21 12:01 Blood Culture (Wb) - Right Hand Blood Culture - Preliminary No growth in 48 hours. 06/26/21 20:35 Urine, Clean Catch Streptococcus pneumoniae Antigen (M - Final 06/26/21 20:35 Urine, Clean Catch Legionella Antigen - Final 06/28/21 16:50 Mucosa - Nasopharyngeal Influenza Types A,B Direct FA (ROSEMARIE) - Final Influenzae B 06/26/21 20:35 Urine, Clean Catch Urine Culture - Final Escherichia coli Physical Exam Const alert General Appearance: cooperative, ill appearing and on BiPAP Nutritional Appearance: morbidly obese HEENT normocephalic and head/scalp atraumatic Eyes PERRL, EOMs intact bilaterally and conjunctivae normal Neck supple General: trachea midline Chest inspection of chest normal Resp Effort and Inspection: tachypneic and labored Auscultation: diminished lung sounds; Negative for rales, rhonchi or wheezes Cardio regular rate and regular rhythm GI normal to inspection, nondistended, normoactive bowel sounds Extremity no clubbing, cyanosis or edema Skin no rashes or lesions noted Neuro CN's II-XII intact bilaterally, moves all extremities and no focal motor deficits Psych Mood & Affect: anxious Charges/Coding Procedures Hospitalists Procedures: 91300 Critial Care 1st Hr
--- NOTE | 2021-07-02 08:58 | PCM.PN.HOSP ---
Subjective Subjective Follow-up for severe respiratory distress, acute hypoxic respiratory failure due to bilateral COVID-19 pneumonia She tried BiPAP last night at 4:30 AM although refusing for last 2 nights because of severe anxiety. Patient on airVo and nonrebreather added to increase her oxygen saturation. On Ativan as needed so that she can put on BiPAP. On 75% FiO2 BiPAP. Respiratory rate 32-40s per minute. I talked to power of state's attorney Joann [place] Objective Data Objective Data Vital Signs: Vital Signs Temp Pulse Resp BP Pulse Ox 97.8 F 89 29 H 148/125 H 82 07/02/21 08:00 07/02/21 08:00 07/02/21 08:00 07/02/21 08:00 07/02/21 08:00 Oxygen Flow Rate (L/min) [ 3 AMBULATING with Oxygen #1] Oxygen Flow Rate (L/min) 60 Oxygen Delivery Method Airvo Weight: 230 lb 6.129 oz Body Mass Index (BMI) 40.8 Intake & Output: Intake and Output for Last 24 Hours 06/30/21 07/01/21 07/02/21 23:59 23:59 23:59 Intake Total 1030 / 1030 400 / 400 100 / 100 Output Total 550 / 950 2350 / 2350 0 / 0 Balance 480 / 80 -1950 / -1950 100 / 100 Lab / Micro Data Result Diagrams: 07/02/21 05:54 07/02/21 05:54 Labs: Laboratory Results - last 24 hr 07/01/21 09:38: WBC 8.3, RBC 5.01, Hgb 13.5, Hct 42.6, MCV 85.0, MCH 26.9 L, MCHC 31.7 L, RDW Std Deviation 43.8, RDW Coeff of Tyrell 14.1, Plt Count 170, MPV 9.7, Immature Gran % (Auto) 1.200 H, Neut % (Auto) 88.7 H, Lymph % (Auto) 4.6 L, [place] % (Auto) 5.4, Eos % (Auto) 0.0, Baso % (Auto) 0.1, Absolute Neuts (auto) 7.4, Absolute Lymphs (auto) 0.38 L, Nucleated RBC % 0 07/01/21 09:38: Sodium 139, Potassium 4.0, Chloride 113 H, Carbon Dioxide 18.0 L, Anion Gap 8, BUN 37 H, Creatinine 1.50 H, Estim Creat Clear Calc 31.76, Est GFR (MDRD) Af Amer 45 L, Est GFR (MDRD) Non-Af 37 L, BUN/Creatinine Ratio 24.7 H, Glucose 162 H, Calcium 8.5, Total Bilirubin 0.50, AST 31, ALT 21, Alkaline Phosphatase 86, Total Protein 6.6, Albumin 2.8 L, Globulin 3.8, Albumin/Globulin Ratio 0.7 L 07/02/21 05:54: WBC 7.1, RBC 4.79, Hgb 13.0, Hct 40.7, MCV 85.0, MCH 27.1, MCHC 31.9 L, RDW Std Deviation 44.2 H, RDW Coeff of [place]rell 14.2, Plt Count 155, MPV 10.2, Immature Gran % (Auto) 1.100 H, Neut % (Auto) 88.4 H, Lymph % (Auto) 4.9 L, [place] % (Auto) 5.5, Eos % (Auto) 0.0, Baso % (Auto) 0.1, Absolute Neuts (auto) 6.3, Absolute Lymphs (auto) 0.35 L, Nucleated RBC % 0 07/02/21 05:54: Sodium 137, Potassium 4.5, Chloride 109 H, Carbon Dioxide 19.0 L, Anion Gap 9, BUN 38 H, Creatinine 1.54 H, Estim Creat Clear Calc 30.93, Est GFR (MDRD) Af Amer 44 L, Est GFR (MDRD) Non-Af 36 L, BUN/Creatinine Ratio 24.7 H, Glucose 132 H, Calcium 8.6, Total Bilirubin 0.60, AST 30, ALT 19, Alkaline Phosphatase 87, Total Protein 6.6, Albumin 2.6 L, Globulin 4.0, Albumin/Globulin Ratio 0.6 L Micro: Microbiology 06/28/21 11:52 Blood Culture (Wb) - Left Hand Blood Culture - Preliminary No growth in 48 hours. 06/28/21 12:01 Blood Culture (Wb) - Right Hand Blood Culture - Preliminary No growth in 48 hours. 06/26/21 20:35 Urine, Clean Catch Streptococcus pneumoniae Antigen (M - Final 06/26/21 20:35 Urine, Clean Catch Legionella Antigen - Final 06/28/21 16:50 Mucosa - Nasopharyngeal Influenza Types A,B Direct FA (ROSEMARIE) - Final Influenzae B 06/26/21 20:35 Urine, Clean Catch Urine Culture - Final Escherichia coli Physical Exam Narrative Physical exam General: Alert, Oriented x3, Cooperative, BMI 40.8 kg/m? HEENT: Atraumatic, PERRLA, EOMI, Normocephalic Oral: On BiPAP. Neck: Supple, No JVD, Negative Carotid Bruits Lungs: Dyspnea at rest, tachypnea and severe hypoxia. Air entry diminished in bilateral lung bases. No wheezing. Cardiovascular: Regular rate, Regular Rhythm, Normal S1, Normal S2, No murmurs Abdomen: Bowel Sounds Present, Soft, Non Tender, Non-Distended : No renal angle tenderness. No suprapubic tenderness. Extremities: Mild edema of lower extremities edema, with generalized fat. [place] hump over neck. Skin: No rashes, No breakdown Musculoskeletal: No Tenderness to Palpation of Joints or Extremities Neurological: Cranial nerves II-XII grossly intact, DTR 2+/4 and Symmetrical, Neuro grossly intact Psych/Mental Status: Flat affect. Assessment & Plan Assessment/Plan (1) Hypoxia: (2) Respiratory failure: QUALIFIERS: Chronicity: acute Respiratory failure complication: hypoxia Qualified Code(s): J96.01 - Acute respiratory failure with hypoxia (3) Suspected COVID-19 virus infection: PLAN: 1. Acute hypoxic respiratory failure due to bilateral COVID-19 pneumonia and possible bacterial secondary infection: 06/29: Patient oxygenation and ventilation is worsening. On air Vo, 92% FiO2. On IV antibiotic vancomycin and cefepime. Bronchopulmonary hygiene with incentive spirometry with Pep and Mucinex 06/30: Discussed with ID. Agree with antibiotic plan. Discussed with ornamental metalwork designer. On 94 200% BiPAP. 07/01: Respiratory status is slightly better than yesterday. On 60% FiO2. On intermittent furosemide. The patient is doing incentive spirometry and pep 07/02: Respiratory status is worse than yesterday. Started on BiPAP. I discussed with food mixer will transfer to ICU for close monitoring. Incentive spirometry, Pep and other medications to continue 2. Acute COVID-19 pneumonia with bacterial superinfection Onset is probably around 3 weeks ago Continue with dexamethasone, when patient has completed dexamethasone would wean prednisone back to her 5 mg daily. Not a candidate for remdesivir given the timing 06/30: Influenza B positive. Tamiflu added. Continue Decadron. Not candidate for baricitinib for history of liver transplant immunosuppression. ALC 0.3 K. ANC 6.2 thousand. D-dimer 1.57. Serum magnesium and phosphorus level normal. CRP, ferritin are elevated. Chest x-ray on 06/30 shows improved aeration with residual patchy infiltrates worse in right lower lobe 07/02: On cefepime and vancomycin. Continue 3. Status post liver transplant. Immunocompromised host. Continue steroids, tacrolimus, mycophenolate However the patient the option to be transferred to [facility] where her transplant was performed. She would prefer to stay here. ALT AST normal limit. Total bilirubin 0.5. Alkaline phosphatase normal. 07/02: I talked to patient's health power of state's attorney, Mrs. Negro Call. She said she is no longer on lactulose and Xifaxan after liver transplant is hepatic encephalopathy resolved. Furthermore, she thinks tacrolimus dose is not right. I asked her to bring all patient's home medications for our pharmacist to review and confirm with her pharmacy[facility] and will update home medication list. Tacrolimus level tomorrow AM. 4. OPAL on CKD stage 3b: Serum creatinine improved from 1.68-1.25. Patient creatinine was normal about 1.0 in May 2017 and then gradually improved probably due to cirrhosis it was about 1.5-1.6 in in 2017-07 26. 07/01: BUN/creatinine 37/1.5. Worsening due to furosemide 5. VTE prophylaxis: Enoxaparin 30 mg SQ twice daily estimated creatinine clearance 39 mL/min.. Discontinue if platelet count drops less than 50,000 or hemoglobin less than 8 g% Total time of the visit including total time spent in counseling or coordination of care, (more than 50% of the total time, spent in obtaining medical information from nurses and other ancillary care providers,explaining to the patient about labs, imaging, diagnosis and management), discussion with consultants with complexity of immunosuppression and liver transplant, talking with the health power of state's attorney, review of labs and imaging is 40 minutes. Charges/Coding Visit Charges Inpatient E&M: 42096 Subs Hosp L3
[2021-07-02] MEDS: dexAMETHasone 10 MG/ML Vial 6 MG IV (09:02)
[2021-07-02] MEDS: 0.9% Saline Lock 10 ML Syringe IV (09:03)
[2021-07-02] MEDS: Ursodiol 250 MG Tablet PO ×2 (09:05→21:13)
[2021-07-02] MEDS: Aspirin E.C. 81 MG Tablet PO (09:05)
[2021-07-02] MEDS: Levothyroxine 88 MCG Tablet PO (09:05)
[2021-07-02] MEDS: Mycophenolate Mofetil 250 MG Capsule 500 MG PO ×2 (09:05→21:10)
[2021-07-02] MEDS: Tacrolimus 0.5 MG Capsule PO ×2 (09:05→21:13)
[2021-07-02] MEDS: Tacrolimus Anhydrous 1 MG Capsule 2 MG PO ×2 (09:05→21:13)
[2021-07-02] MEDS: rifAXIMin 550 MG Tablet PO ×2 (09:05→21:14)
[2021-07-02] MEDS: guaiFENesin 1,200 MG Tablet 1200 MG PO ×2 (09:05→21:11)
[2021-07-02] MEDS: Enoxaparin 40 MG/0.4 ML Syringe SC ×2 (09:06→21:10)
[2021-07-02] MEDS: Oseltamivir Phosphate 30 MG Capsule PO ×2 (09:06→21:13)
--- NOTE | 2021-07-02 09:59 | PCM.PN.ID ---
Physical Exam Narrative Feeling about the same, no fever, no n/v/d. Still dyspnea, no sputum. Const alert General Appearance: cooperative Resp Effort and Inspection: tachypneic Auscultation: diminished lung sounds Cardio regular rate and regular rhythm GI soft to palpation, non-tender and non-distended Skin no rashes or lesions noted ID ID: Route of nutrition/ use of supplements: [] Nutritional Intake: [] IV Site: [] Richardson Catheter: [] Assessment & Plan Assessment/Plan (1) CKD (chronic kidney disease) stage 3, GFR 30-59 ml/min: (2) Liver transplant recipient: (3) Hypoxia: (4) COVID-19: PLAN: Sick for approximately 3 weeks. Covid vaccine x3. Also flu B Ag (+). On cellcept, tacro, pred, bactrim at home with h/o liver transplant. Not candidate for baricitinib due to liver transplant. On dex here and empiric vanc/cefepime. Ucx with ecoli, 80-100k. On tamiflu for flu coverage. Pulm following, on 65% bipap. Will follow, thank you, d/w Dr. Corrales (5) Influenza B:
--- NOTE | 2021-07-02 10:44 | NURSING ---
report called to [facility] for ICU transfer.
--- NOTE | 2021-07-02 10:49 | NURSING ---
updated patients daughter, Negro of transfer to ICU
--- NOTE | 2021-07-02 15:12 | RAD_ITS ---
STUDY: X-RAY CHEST REASON FOR EXAM: Female, 61 years old. PICC line placement TECHNIQUE: Single AP portable view of the chest. COMPARISON: Comparison is made with prior study dated 06/30/2021. FINDINGS: EKG electrodes are seen. A right-sided PICC line catheter has been placed. The tip of the catheter is at the junction of the superior vena cava and confluence with the left brachiocephalic vein. Since prior study, there is been progressive pulmonary infiltrates in the right lower lobe as well as in the left lung. Blunting of both costophrenic angles. Normal size heart. Normal mediastinum and rebeca. Normal visualized pulmonary arteries. There is atherosclerotic calcification of the aortic arch with tortuosity. There are diffuse degenerative changes of the visualized thoracic spine. Normal visualized ribs, clavicles, and shoulders. There is no demonstrated abnormality of the visualized soft tissue structures of the upper abdomen. RAD/Chest 1 View (Portable) IMPRESSION: The tip of the right PICC line catheter is at the junction of the superior vena cava and confluence with the left brachiocephalic vein. Interval increase in the bilateral pulmonary infiltrates. Electronically Signed: Cachorro Fox MD at 15:28 EST ,
[2021-07-02] MEDS: Ascorbic Acid 500 MG Tablet PO (18:12)
[2021-07-02 18:29] LABS: Vancomycin, Trough Level 19.9 ug/mL (5.0-15.0)
--- NOTE | 2021-07-02 20:25 | RAD_ITS ---
INDICATION: PICC Placement EXAMINATION/TECHNIQUE: X-RAY - XR Chest 1 View COMPARISON: 07/02/2021 chest x-ray FINDINGS: LINES/DEVICES: Previously seen right-sided PICC line has been removed. New left-sided PICC line tip is at the cavoatrial junction. Thin linear opacity projects over the right side of the base of the neck, near the right internal jugular vein, may represent incompletely visualized needle. Please correlate clinically. Overlying heart monitoring wires are present. LUNGS: Bilateral airspace disease again demonstrated. No significant interval change. No pleural effusion. No pneumothorax. MEDIASTINUM AND CARDIOVASCULAR STRUCTURES: Normal size and contour of the cardiomediastinal silhouette. No evidence of pulmonary vascular congestion. BONES AND SOFT TISSUES: No abnormality within limits of the exam. RAD/CXR for Line Placement IMPRESSION: 1. Left PICC line appears well-positioned. 2. Thin linear opacity right side of the neck, near the expected location right internal jugular vein representing incompletely visualized catheter or needle. Please correlate clinically. 3. Bilateral airspace disease. Electronically Signed: Phan Frances DO at 20:42 EST ,
[2021-07-02] MEDS: Atorvastatin Calcium 10 MG Tablet PO (21:10)
[2021-07-02] MEDS: Calcium (Elemental) 500 MG Tablet PO (21:11)
[2021-07-02] MEDS: Ondansetron 4 MG/2 ML Vial IV (21:34)
[2021-07-03] VITALS (29 sets, daily range): BP systolic 101–161; BP diastolic 60–117; PULSE 65–98; RESP 12–35; TEMP 35.9–36.7; O2SAT 81–97
--- NOTE | 2021-07-03 02:09 | PCM.RX.CS ---
Consult Pharmacy has been consulted to manage selected antiobiotic: Vancomycin Type of Consult: Follow-up Labs: Sodium 137 mmol/L (136-145) 07/02/21 05:54 Potassium 4.5 mmol/L (3.5-5.1) 07/02/21 05:54 Chloride 109 mmol/L (98-107) H 07/02/21 05:54 Carbon Dioxide 19.0 mmol/L (21.0-32.0) L 07/02/21 05:54 Anion Gap 9 (5-15) 07/02/21 05:54 BUN 38 mg/dL (7-18) H 07/02/21 05:54 Creatinine 1.54 mg/dL (0.55-1.02) H 07/02/21 05:54 Est GFR (MDRD) Af Amer 44 mL/min (>60) L 07/02/21 05:54 Est GFR (MDRD) Non-Af 36 mL/min (>60) L 07/02/21 05:54 BUN/Creatinine Ratio 24.7 RATIO (10-20) H 07/02/21 05:54 Glucose 132 mg/dL (74-106) H 07/02/21 05:54 Vancomycin Trough 19.9 ug/mL (5.0-15.0) H 07/02/21 17:47 Microbiology: Microbiology 06/28/21 11:52 Blood Culture (Wb) - Left Hand Blood Culture - Preliminary No growth in 48 hours. 06/28/21 12:01 Blood Culture (Wb) - Right Hand Blood Culture - Preliminary No growth in 48 hours. 06/26/21 20:35 Urine, Clean Catch Streptococcus pneumoniae Antigen (M - Final 06/26/21 20:35 Urine, Clean Catch Legionella Antigen - Final 06/28/21 16:50 Mucosa - Nasopharyngeal Influenza Types A,B Direct FA (ROSEMARIE) - Final Influenzae B 06/26/21 20:35 Urine, Clean Catch Urine Culture - Final Escherichia coli Pharmacy Plan for Drug Dosing: Pharmacy Service will continue to monitor and adjust dosing as required. TROUGH 19.9 AT 13 HOURS, NEXT DOSE HUNG 5 HOURS LATE PER PICC LINE ISSUES. NO CHANGES AT THIS TIME, RECHECK TROUGH PRIOR TO 4TH DOSE Follow-Up Labs: Trough Vancomycin Labs to be done on [date and time ordered]: 07/04 @ 3853
[2021-07-03] MEDS: LORazepam 2 MG/ML Syringe 0.5 MG IV (03:59)
[2021-07-03 04:24] LABS: Absolute Lymphocyte Count 0.38 X10^3/uL (0.83-4.51); Absolute Neutrophil Count 7.3 X10^3/uL (2.0-7.7); Basophil# 0.01 X10^3/uL; Basophil% 0.1 % (0-1); Hematocrit 39.5 % (37-47); Hemoglobin 12.5 g/dL (12.0-15.0); Lymphocyte # 0.38 X10^3/ul (0.83-4.51); Lymphocyte % 4.5 % (19-41); Mean Corp Hgb Conc 31.6 g/dL (32-36); Mean Corpuscular Volume 85.3 fL (81-99); Mean Platelet Vol. 9.9 fl (6.2-12.0); Monocyte# 0.55 X10^3/uL; Monocyte% 6.6 % (0-10); NRBC Flagged by Analyzer 0 % (0-5); Neutrophil # 7.29 X10^3/uL (2.7-7.7); Neutrophil % 87.2 % (47-70); POSITIVE DIFFERENTIAL YES; Platelet Count 187 K/mm3 (150-450); RBC Distribution Width CV 14.3 % (11.6-14.6); RBC Distribution Width SD 44.3 fl (35.1-43.9); Red Blood Count 4.63 M/mm3 (4.2-5.4); White Blood Count 8.4 K/mm3 (4.4-11.0)
[2021-07-03 04:27] LABS: Differential Indicated SCAN CRITERIA MET
[2021-07-03 04:54] LABS: Differential Comment SCANNED
[2021-07-03 05:22] LABS: ALB/GLOB Ratio 0.6 RATIO (0.9-2.4); AST(SGOT) 21 U/L (15-37); Alanine Aminotransfer ALT/SGPT 18 U/L (13-56); Albumin, Serum 2.5 g/dL (3.2-5.0); Alkaline Phosphatase 90 U/L (45-117); Anion Gap 5 (5-15); BUN 49 mg/dL (7-18); BUN/Creat Ratio 30.2 RATIO (10-20); Calcium,Total 8.7 mg/dL (8.5-10.1); Chloride 111 mmol/L (98-107); Creatinine, Serum 1.62 mg/dL (0.55-1.02); EST Glomerular Filtration Rate 34 mL/min (>60); Est Glom Filt Rate - Afr Amer 41 mL/min (>60); Globulin 4.1 g/dL (2.2-4.2); Glucose 114 mg/dL (74-106); Potassium 4.7 mmol/L (3.5-5.1); Protein, Total 6.6 g/dL (6.4-8.2); Sodium Level 139 mmol/L (136-145)
--- NOTE | 2021-07-03 05:46 | PCM.PN.INT ---
Assessment & Plan Assessment/Plan (1) COVID-19: (2) Influenza B: PLAN: RECOMMENDATIONS: 1. Continue BiPAP/Airvo therapy and wean FiO2 for saturations greater than 90%. 2. Continue empiric antimicrobials. 3. Continue Decadron to complete 10-day treatment course. 4. Continue Tamiflu as ordered. 5. Continue prophylactic Lovenox. 6. Holding on diuretics due to renal function. 7. The patient should be n.p.o. given tenuous respiratory status. IMPRESSIONS: 1. Acute hypoxemic respiratory failure secondary to COVID-19/influenza B The patient was initially admitted to the hospital on June 27 and subsequently tested positive for both COVID-19 and influenza. The patient is vaccinated at her baseline. However, she is immunosuppressed due to a history of a liver transplant. Her oxygenation status has worsened over the course of her hospitalization. She continues to require BiPAP support. It is reasonable to continue Decadron, empiric antimicrobials, Tamiflu and prophylactic Lovenox. Wean FiO2 for oxygen saturations greater than 90%. Diuretics remain on hold due to underlying renal insufficiency. The patient is at high risk for further clinical decompensation and the need for intubation. 2. Acute kidney injury Likely prerenal in etiology in the setting of her acute presentation. Will need to monitor volume status closely. If creatinine improves, will consider diuresis. Continue to monitor urine output. No current indication for renal replacement therapy. 3. Chronic baseline immunosuppressed state secondary to liver transplantation Continue baseline outpatient immunosuppressive regimen. 4. Morbid obesity/asthma/hypothyroidism/hyperlipidemia/GERD Complicates care, management, recovery and prognosis. Continue home medications as indicated. TIME: 31 minutes of critical care time, independent of procedures, was spent addressing the patient's acute hypoxemic respiratory failure secondary to combined COVID-19 and influenza B, acute kidney injury, review of all data and collaboration with the care team. Subjective Subjective The patient was seen and examined at the bedside this morning. Events from the last 24 hours have been reviewed. The patient is currently afebrile and hemodynamically stable. The patient's respiratory status is still quite tenuous. She was maintained on BiPAP overnight with an FiO2 of 100%. She was then transitioned to heated high flow this morning in combination with a nonrebreather this morning. However, she was not able to maintain appropriate saturations and had to be placed back on BiPAP therapy. The patient is still insistent that she would only allow for intubation if it were an emergent issue. She is currently documented to be overall net +2.1 L for the hospitalization. She remains on antimicrobials, Decadron, Tamiflu and prophylactic Lovenox. Creatinine is up to 1.62 this morning. Objective Data Objective Data The patient's most recent lab work, culture data and imaging studies have all been personally reviewed. Coronavirus PCR was positive on June 26. Influenza screen was positive for flu B. Vital Signs: Vital Signs Temp Pulse Resp BP Pulse Ox 96.9 F L 78 26 H 115/72 93 07/02/21 22:00 07/03/21 01:00 07/03/21 01:00 07/02/21 22:00 07/03/21 01:00 Oxygen Flow Rate (L/min) [ 3 AMBULATING with Oxygen #1] Oxygen Flow Rate (L/min) 60 Oxygen Delivery Method Airvo Weight: 103.1 kg Body Mass Index (BMI) 40.8 Intake & Output: Intake and Output for Last 24 Hours 07/01/21 07/02/21 07/03/21 23:59 23:59 23:59 Intake Total 400 / 400 400 / 400 Output Total 2350 / 2350 100 / 100 Balance -1950 / -1950 300 / 300 Lab / Micro Data Attestation: I reviewed the patient's lab results. Result Diagrams: 07/03/21 04:12 07/03/21 04:12 Labs: Laboratory Results - last 24 hr 06/26/21 20:24: COVID-19 (ANNA) Detected 07/02/21 05:54: WBC 7.1, RBC 4.79, Hgb 13.0, Hct 40.7, MCV 85.0, MCH 27.1, MCHC 31.9 L, RDW Std Deviation 44.2 H, RDW Coeff of Tyrell 14.2, Plt Count 155, MPV 10.2, Immature Gran % (Auto) 1.100 H, Neut % (Auto) 88.4 H, Lymph % (Auto) 4.9 L, [place] % (Auto) 5.5, Eos % (Auto) 0.0, Baso % (Auto) 0.1, Absolute Neuts (auto) 6.3, Absolute Lymphs (auto) 0.35 L, Nucleated RBC % 0 07/02/21 05:54: Sodium 137, Potassium 4.5, Chloride 109 H, Carbon Dioxide 19.0 L, Anion Gap 9, BUN 38 H, Creatinine 1.54 H, Estim Creat Clear Calc 30.93, Est GFR (MDRD) Af Amer 44 L, Est GFR (MDRD) Non-Af 36 L, BUN/Creatinine Ratio 24.7 H, Glucose 132 H, Calcium 8.6, Total Bilirubin 0.60, AST 30, ALT 19, Alkaline Phosphatase 87, Total Protein 6.6, Albumin 2.6 L, Globulin 4.0, Albumin/Globulin Ratio 0.6 L 07/02/21 05:54: Phosphorus 3.0, Magnesium 2.0 07/02/21 17:47: Vancomycin Trough 19.9 H 07/03/21 04:12: WBC 8.4, RBC 4.63, Hgb 12.5, Hct 39.5, MCV 85.3, MCH 27.0, MCHC 31.6 L, RDW Std Deviation 44.3 H, RDW Coeff of Tyrell 14.3, Plt Count 187, MPV 9.9, Immature Gran % (Auto) 1.600 H, Neut % (Auto) 87.2 H, Lymph % (Auto) 4.5 L, Griggs % (Auto) 6.6, Eos % (Auto) 0.0, Baso % (Auto) 0.1, Absolute Neuts (auto) 7.3, Absolute Lymphs (auto) 0.38 L, Nucleated RBC % 0, Differential Comment SCANNED 07/03/21 04:12: Sodium 139, Potassium 4.7, Chloride 111 H, Carbon Dioxide 23.0, Anion Gap 5, BUN 49 H, Creatinine 1.62 H, Estim Creat Clear Calc 29.40, Est GFR (MDRD) Af Amer 41 L, Est GFR (MDRD) Non-Af 34 L, BUN/Creatinine Ratio 30.2 H, Glucose 114 H, Calcium 8.7, Total Bilirubin 0.50, AST 21, ALT 18, Alkaline Phosphatase 90, Total Protein 6.6, Albumin 2.5 L, Globulin 4.1, Albumin/Globulin Ratio 0.6 L 07/03/21 04:12: Sodium Cancelled, Potassium Cancelled, Chloride Cancelled, Carbon Dioxide Cancelled, Anion Gap Cancelled, BUN Cancelled, Creatinine Cancelled, Estim Creat Clear Calc Cancelled, Est GFR (MDRD) Af Amer Cancelled, Est GFR (MDRD) Non-Af Cancelled, BUN/Creatinine Ratio Cancelled, Glucose Cancelled, Calcium Cancelled Micro: Microbiology 06/28/21 11:52 Blood Culture (Wb) - Left Hand Blood Culture - Preliminary No growth in 48 hours. 06/28/21 12:01 Blood Culture (Wb) - Right Hand Blood Culture - Preliminary No growth in 48 hours. 06/26/21 20:35 Urine, Clean Catch Streptococcus pneumoniae Antigen (M - Final 06/26/21 20:35 Urine, Clean Catch Legionella Antigen - Final 06/28/21 16:50 Mucosa - Nasopharyngeal Influenza Types A,B Direct FA (ROSEMARIE) - Final Influenzae B 06/26/21 20:35 Urine, Clean Catch Urine Culture - Final Escherichia coli Radiography Diagnostic Testing: Radiology Impression Chest X-Ray 07/02/21 15:12 IMPRESSION: The tip of the right PICC line catheter is at the junction of the superior vena cava and confluence with the left brachiocephalic vein. Interval increase in the bilateral pulmonary infiltrates. Electronically Signed: Cachorro Fox MD at 15:28 EST , Chest X-Ray 07/02/21 20:25 IMPRESSION: 1. Left PICC line appears well-positioned. 2. Thin linear opacity right side of the neck, near the expected location right internal jugular vein representing incompletely visualized catheter or needle. Please correlate clinically. 3. Bilateral airspace disease. Electronically Signed: Phan Frances DO at 20:42 EST , Physical Exam Const alert General Appearance: cooperative, ill appearing and on BiPAP Nutritional Appearance: morbidly obese HEENT normocephalic and head/scalp atraumatic Eyes PERRL, EOMs intact bilaterally and conjunctivae normal Neck supple General: trachea midline Chest inspection of chest normal Resp Effort and Inspection: tachypneic Auscultation: diminished lung sounds; Negative for rales, rhonchi or wheezes Cardio regular rate and regular rhythm GI normal to inspection, nondistended, normoactive bowel sounds Extremity no clubbing, cyanosis or edema Skin no rashes or lesions noted Neuro CN's II-XII intact bilaterally, moves all extremities and no focal motor deficits Psych Mood & Affect: anxious Charges/Coding Procedures Hospitalists Procedures: 28292 Critial Care 1st Hr
--- NOTE | 2021-07-03 07:38 | PN.HOSP_ITS ---
Subjective Subjective Seen and examined Patient angry, crying and frustrated that she cannot eat. She is on BiPAP She desaturates on airVo and nonrebreather mask Objective Data Objective Data Vital Signs: Vital Signs Temp Pulse Resp BP Pulse Ox 97.9 F 78 18 109/70 85 07/03/21 00:00 07/03/21 06:00 07/03/21 06:00 07/03/21 06:00 07/03/21 06:00 Oxygen Flow Rate (L/min) [ 3 AMBULATING with Oxygen #1] Oxygen Flow Rate (L/min) 60 Oxygen Delivery Method Airvo Weight: 227 lb 4.745 oz Body Mass Index (BMI) 40.8 Intake & Output: Intake and Output for Last 24 Hours 07/01/21 07/02/21 07/03/21 23:59 23:59 23:59 Intake Total 400 / 400 400 / 400 Output Total 2350 / 2350 100 / 100 Balance -1950 / -1950 300 / 300 Lab / Micro Data Result Diagrams: 07/03/21 04:12 07/03/21 04:12 Labs: Laboratory Results - last 24 hr 06/26/21 20:24: COVID-19 (ANNA) Detected 07/02/21 05:54: Phosphorus 3.0, Magnesium 2.0 07/02/21 17:47: Vancomycin Trough 19.9 H 07/03/21 04:12: WBC 8.4, RBC 4.63, Hgb 12.5, Hct 39.5, MCV 85.3, MCH 27.0, MCHC 31.6 L, RDW Std Deviation 44.3 H, RDW Coeff of Tyrell 14.3, Plt Count 187, MPV 9.9, Immature Gran % (Auto) 1.600 H, Neut % (Auto) 87.2 H, Lymph % (Auto) 4.5 L, [place] % (Auto) 6.6, Eos % (Auto) 0.0, Baso % (Auto) 0.1, Absolute Neuts (auto) 7.3, Absolute Lymphs (auto) 0.38 L, Nucleated RBC % 0, Differential Comment SCANNED 07/03/21 04:12: Sodium 139, Potassium 4.7, Chloride 111 H, Carbon Dioxide 23.0, Anion Gap 5, BUN 49 H, Creatinine 1.62 H, Estim Creat Clear Calc 29.40, Est GFR (MDRD) Af Amer 41 L, Est GFR (MDRD) Non-Af 34 L, BUN/Creatinine Ratio 30.2 H, Glucose 114 H, Calcium 8.7, Total Bilirubin 0.50, AST 21, ALT 18, Alkaline Phosphatase 90, Total Protein 6.6, Albumin 2.5 L, Globulin 4.1, Albumin/Globulin Ratio 0.6 L Micro: Microbiology 06/28/21 11:52 Blood Culture (Wb) - Left Hand Blood Culture - Preliminary No growth in 48 hours. 06/28/21 12:01 Blood Culture (Wb) - Right Hand Blood Culture - Preliminary No growth in 48 hours. 06/26/21 20:35 Urine, Clean Catch Streptococcus pneumoniae Antigen (M - Final 06/26/21 20:35 Urine, Clean Catch Legionella Antigen - Final 06/28/21 16:50 Mucosa - Nasopharyngeal Influenza Types A,B Direct FA (ROSEMARIE) - Final Influenzae B 06/26/21 20:35 Urine, Clean Catch Urine Culture - Final Escherichia coli Radiography Diagnostic Testing: Radiology Impression Chest X-Ray 07/02/21 15:12 IMPRESSION: The tip of the right PICC line catheter is at the junction of the superior vena cava and confluence with the left brachiocephalic vein. Interval increase in the bilateral pulmonary infiltrates. Electronically Signed: Cachorro Fox MD at 15:28 EST , Chest X-Ray 07/02/21 20:25 IMPRESSION: 1. Left PICC line appears well-positioned. 2. Thin linear opacity right side of the neck, near the expected location right internal jugular vein representing incompletely visualized catheter or needle. Please correlate clinically. 3. Bilateral airspace disease. Electronically Signed: Phan Frances DO at 20:42 EST , Physical Exam Narrative Physical exam General: Agitated, oriented x3. BMI 40.8 kg/m? HEENT: Atraumatic, PERRLA, EOMI, Normocephalic Oral: On BiPAP. Neck: Supple, No JVD, Negative Carotid Bruits Lungs: Dyspnea at rest, tachypnea and severe hypoxia. Air entry diminished in bilateral lung bases. On BiPAP Cardiovascular: Regular rate, Regular Rhythm, Normal S1, Normal S2, No murmurs Abdomen: Bowel Sounds Present, Soft, Non Tender, Non-Distended : No renal angle tenderness. No suprapubic tenderness. Extremities: Mild edema of lower extremities edema, with generalized fat. Estill hump over neck. Skin: No rashes, No breakdown Musculoskeletal: No Tenderness to Palpation of Joints or Extremities Neurological: Cranial nerves II-XII grossly intact, DTR 2+/4 and Symmetrical, Neuro grossly intact Psych/Mental Status: Mild restlessness and anxiety, agitated Assessment & Plan Assessment/Plan (1) Hypoxia: (2) Respiratory failure: QUALIFIERS: Chronicity: acute Respiratory failure complication: hypoxia Qualified Code(s): J96.01 - Acute respiratory failure with hypoxia (3) Suspected COVID-19 virus infection: PLAN: 1. Acute hypoxic respiratory failure due to bilateral COVID-19 pneumonia and possible bacterial secondary infection: 06/29: Patient oxygenation and ventilation is worsening. On air Vo, 92% FiO2. On IV antibiotic vancomycin and cefepime. Bronchopulmonary hygiene with incentive spirometry with Pep and Mucinex 06/30: Discussed with ID. Agree with antibiotic plan. Discussed with land title examiner. On 94 200% BiPAP. 07/01: Respiratory status is slightly better than yesterday. On 60% FiO2. On intermittent furosemide. The patient is doing incentive spirometry and pep 07/02: Respiratory status is worse than yesterday. Started on BiPAP. I discussed with alcohol still operator will transfer to ICU for close monitoring. Incentive spirometry, Pep and other medications to continue 07/03: Discussed with the alcohol still operator. Patient desaturates off BiPAP with severe respiratory distress therefore cannot eat. Patient is frustrated and agitated as she cannot eat. Patient at risk for further respiratory deterioration and need for intubation. 2. Acute COVID-19 pneumonia with bacterial superinfection Onset is probably around 3 weeks ago Continue with dexamethasone, when patient has completed dexamethasone would wean prednisone back to her 5 mg daily. Not a candidate for remdesivir given the timing 06/30: Influenza B positive. Tamiflu added. Continue Decadron. Not candidate for baricitinib for history of liver transplant immunosuppression. ALC 0.3 K. ANC 6.2 thousand. D-dimer 1.57. Serum magnesium and phosphorus level normal. CRP, ferritin are elevated. Chest x-ray on 06/30 shows improved aeration with r esidual patchy infiltrates worse in right lower lobe 07/02: On cefepime and vancomycin. Continue 3. Status post liver transplant. Immunocompromised host. Continue steroids, tacrolimus, mycophenolate However the patient the option to be transferred to [facility] her transplant [facility] performed. She would prefer to stay here. ALT AST normal limit. Total bilirubin 0.5. Alkaline phosphatase normal. 07/02: I talked to patient's health power of regulatory attorney, . Negro Call. She said she is no longer on lactulose and Xifaxan after liver transplant is hepatic encephalopathy resolved. Furthermore, she thinks tacrolimus dose is not right. I asked her to bring all patient's home medications for our pharmacist to review and confirm with her [facility] and will update home medication list. Tacrolimus level tomorrow AM. 4. OPAL on CKD stage 3b: Serum creatinine improved from 1.68-1.25. Patient creatinine was normal about 1.0 in May 2017 and then gradually improved probably due to cirrhosis it was about 1.5-1.6 in in 2017-07 26. 07/01: BUN/creatinine 37/1.5. Worsening due to furosemide 07/03: Creatinine 1.62 2. The patient's daughter said her creatinine has always been fluctuating because of interaction with different immunosuppression medications. Continue to hold diuretic. 5. VTE prophylaxis: Enoxaparin 30 mg SQ twice daily estimated creatinine cl earance 39 mL/min.. Discontinue if platelet count drops less than 50,000 or hemoglobin less than 8 g% Total time of the visit including total time spent in counseling or coordination of care, (more than 50% of the total time, spent in obtaining medical information from nurses and other ancillary care providers,explaining to the patient about labs, imaging, diagnosis and management), discussion with consultants with complexity of immunosuppression and liver transplant, talking with the health power of regulatory attorney, Joann Tapan, review of labs and imaging is 40 minutes. Charges/Coding Visit Charges Inpatient E&M: 14951 Subs Hosp L3
[2021-07-03] MEDS: Acetaminophen 325 MG Tablet 650 MG PO ×2 (08:25→17:34)
[2021-07-03] MEDS: Ascorbic Acid 500 MG Tablet PO ×2 (08:25→17:34)
[2021-07-03] MEDS: Vancomycin IV 500 MG/100 ML BAG 100 MG IV ×2 (09:45→21:30)
[2021-07-03] MEDS: Calcium (Elemental) 500 MG Tablet PO ×2 (11:21→22:39)
[2021-07-03] MEDS: Cholecalciferol (VIT D3) 25 MCG TABLET (1,000 UNITS) 50 MCG PO (11:21)
[2021-07-03] MEDS: Aspirin E.C. 81 MG Tablet PO (11:21)
[2021-07-03] MEDS: Levothyroxine 88 MCG Tablet PO (11:22)
[2021-07-03] MEDS: Smz/Tmp Ds Tablet 1 TABLET PO (11:22)
[2021-07-03] MEDS: guaiFENesin 1,200 MG Tablet 1200 MG PO ×2 (11:22→22:40)
[2021-07-03] MEDS: Oseltamivir Phosphate 30 MG Capsule PO ×2 (11:22→22:39)
[2021-07-03] MEDS: Ursodiol 250 MG Tablet PO ×2 (11:22→22:39)
[2021-07-03] MEDS: rifAXIMin 550 MG Tablet PO ×2 (11:22→22:40)
[2021-07-03] MEDS: Enoxaparin 40 MG/0.4 ML Syringe SC ×2 (11:23→22:40)
[2021-07-03] MEDS: dexAMETHasone 10 MG/ML Vial 6 MG IV (11:23)
[2021-07-03] MEDS: Tacrolimus 0.5 MG Capsule PO (11:24)
[2021-07-03] MEDS: Tacrolimus Anhydrous 1 MG Capsule 2 MG PO ×2 (11:24→22:41)
[2021-07-03] MEDS: Mycophenolate Mofetil 250 MG Capsule 500 MG PO (11:24)
--- NOTE | 2021-07-03 11:50 | NURSING ---
07/03/21 0830: Patient sitting in bed on airvo 60L/90% and with a non rebreather 15L on. Patient oxygen saturations 88-90%. This RN explained to the patient that with her being on this much oxygen it is unsafe for her to eat at this time. Patient immediately became upset with this RN, starting to yell and curse. This RN attempted to explain to the patient that oxygen is more important at this time, not food. Then patient then demanded to be placed on the bipap since that is what we want and since we are not going to let her eat anything. This RN told the patient that this is not what we want but what has to be done to increase her oxygen levels. The patient then yelled at this nurse tohannah put on the G*d Da*n bipap. This RN placed the bipap on patient. This nurse also told the patient that we are here to help her and not to talk to this nurse and other staff that way. 07/03/21 1100: This RN went into patients room to give patient a break off off of the bipap and on airvo,and administer her medications. The patient at first was refusing to take her bipap off. This RN then asked the patient if she is refusing to take her medications? The patient then agreed to take her bipap off and be placed on the airvo so that she can take her medications. While preparing her medications, the patient oxygen saturations started to drop to 81% on airvo 60L/90%. This RN placed a nonrebreather on patient, the patient stated to this RN I ' know why I have to have this this RN told the patient because your oxygen is 81%, the patient then stated I dont care, this RN then told the patient that we care what her oxygen is so keep the nonrebreather on. After medications given, this RN asked the patient if she is ready to have her bipap back on. The patient said yes, its what you want. This RN told the patient this is what is needed to keep her oxygen up. The patient was sating 86% on airvo 60L/90% and the nonrebreather 15L. Bipap placed on patient. This RN told the patient will come back in after awhile to give her another break off of bipap. The patient stated I don't want that this RN then told the patient that I will be back in then to do oral care. The patient then stated I don't need that. The patient then asked this RN to shut all the blinds. This RN asked the patient is she is going to take a nap, the patient answered no. This RN informed the patient that patients in the ICU can experience delirium if no daylight is let into the room during the day while awake. Patient started to argue with this nurse that I wont get delirium This RN reinforced what delirium is and how to prevent. Blinds shut partway but not all the way for this reason. This RN told the patient that will be back in later, if she needs anything to use her call light. The patient stated I wont need anything. Call light next to patient.
[2021-07-03] MEDS: Atorvastatin Calcium 10 MG Tablet PO (22:39)
[2021-07-04] MEDS: LORazepam 2 MG/ML Syringe 0.5 MG IV ×2 (08:12→21:40)
[2021-07-04] MEDS: dexAMETHasone 10 MG/ML Vial 6 MG IV (10:00)
[2021-07-04] MEDS: Vancomycin IV 500 MG/100 ML BAG 100 MG IV (13:00)
[2021-07-04] MEDS: guaiFENesin 1,200 MG Tablet 1200 MG PO ×2 (16:00→21:40)
[2021-07-04] MEDS: Calcium (Elemental) 500 MG Tablet PO ×2 (16:00→21:40)
[2021-07-04] MEDS: Tacrolimus 0.5 MG Capsule PO ×2 (16:00→21:40)
[2021-07-04] MEDS: Aspirin E.C. 81 MG Tablet PO (16:00)
[2021-07-04] MEDS: rifAXIMin 550 MG Tablet PO ×2 (16:00→21:40)
[2021-07-04] MEDS: Cholecalciferol (VIT D3) 25 MCG TABLET (1,000 UNITS) 50 MCG PO (16:00)
[2021-07-04] MEDS: Ferrous Gluconate 324 MG Tablet PO (16:00)
[2021-07-04] MEDS: Ascorbic Acid 500 MG Tablet PO (16:00)
[2021-07-04] MEDS: Ursodiol 250 MG Tablet PO ×2 (16:00→21:40)
[2021-07-04] MEDS: Levothyroxine 88 MCG Tablet PO (16:00)
[2021-07-04] MEDS: Tacrolimus Anhydrous 1 MG Capsule 2 MG PO ×2 (16:00→21:40)
--- NOTE | 2021-07-04 16:14 | PN_ITS ---
DATE OF SERVICE 07/04/2021 SUBJECTIVE Follow-up for acute hypoxic respiratory failure. Patient is still short of breath. 100% FiO2 BiPAP. OBJECTIVE General: Agitated, oriented x3. BMI 40.8 kg/m? HEENT: Atraumatic, PERRLA, EOMI, Normocephalic Oral: On BiPAP. Neck: Supple, No JVD, Negative Carotid Bruits Lungs: Dyspnea at rest, and severe hypoxia. Air entry diminished in bilateral lung bases. On BiPAP support Cardiovascular: Sinus rhythm, Normal S1, Normal S2, No murmurs Abdomen: Bowel Sounds Present, Soft, Non Tender, Non-Distended : No renal angle tenderness. No suprapubic tenderness. Extremities: Mild edema of lower extremities edema, with generalized fat. Larue hump over neck. Skin: No rashes, No breakdown Musculoskeletal: No Tenderness to Palpation of Joints or Extremities Neurological: Cranial nerves II-XII grossly intact, DTR 2+/4 and Symmetrical, Neuro grossly intact Psych/Mental Status: Mild restlessness and anxiety, agitated ASSESSMENT/PLAN 1. Acute hypoxic respiratory failure due to bilateral COVID-19 pneumonia and possible bacterial secondary infection: 06/29: Patient oxygenation and ventilation is worsening. On air Vo, 92% FiO2. On IV antibiotic vancomycin and cefepime. Bronchopulmonary hygiene with incentive spirometry with Pep and Mucinex 06/30: Discussed with ID. Agree with antibiotic plan. Discussed with director trading. On 94 200% BiPAP. 07/01: Respiratory status is slightly better than yesterday. On 60% FiO2. On intermittent furosemide. The patient is doing incentive spirometry and pep 07/02: Respiratory status is worse than yesterday. Started on BiPAP. I discussed with compliance consultant will transfer to ICU for close monitoring. Incentive spirometry, Pep and other medications to continue 07/03: Discussed with the compliance consultant. Patient desaturates off BiPAP with severe respiratory distress therefore cannot eat. Patient is frustrated and agitated as she cannot eat. Patient at risk for further respiratory deterioration and need for intubation. 07/04: Patient continues to be on BiPAP 100% FiO2, maximum capacity. Discussed with the nursing staff. Patient is still residual. 2. Acute COVID-19 pneumonia with bacterial superinfection Onset is probably around 3 weeks ago Continue with dexamethasone, when patient has completed dexamethasone would wean prednisone back to her 5 mg daily. Not a candidate for remdesivir given the timing 06/30: Influenza B positive. Tamiflu added. Continue Decadron. Not candidate for baricitinib for history of liver transplant immunosuppression. ALC 0.3 K. ANC 6.2 thousand. D-dimer 1.57. Serum magnesium and phosphorus level normal. CRP, ferritin are elevated. Chest x-ray on 06/30 shows improved aeration with residual patchy infiltrates worse in right lower lobe 07/02: On cefepime and vancomycin. 3. Status post liver transplant. Immunocompromised host. Continue steroids, tacrolimus, mycophenolate However the patient the option to be transferred to [facility] where her transplant was performed. She would prefer to stay here. ALT AST normal limit. Total bilirubin 0.5. Alkaline phosphatase normal. 07/02: I talked to patient's health power of employment attorney, Mrs. Negro Call. She said she is no longer on lactulose and Xifaxan after liver transplant is hepatic encephalopathy resolved. Furthermore, she thinks tacrolimus dose is not right. I asked her to bring all patient's home medications for our pharmacist to review and confirm with her pharmacy[facility] and will update home medication list. Tacrolimus level tomorrow AM. 07/04: Nursing staff talked to [facility] field care coordinator. international logistics coordinator said that they are not using mycophenolate on COV- pneumonia with respiratory failure on transplant patients. Therefore mycophenolate discontinued on 07/03 evening 4. OPAL on CKD stage 3b: Serum creatinine improved from 1.68-1.25. Patient creatinine was normal about 1.0 in May 2017 and then gradually improved probably due to cirrhosis it was about 1.5-1.6 in in 2017-07 26. 07/01: BUN/creatinine 37/1.5. Worsening due to furosemide 07/03: Creatinine 1.62 2. The patient's daughter said her creatinine has always been fluctuating because of interaction with different immunosuppression medications. Continue to hold diuretic. 5. VTE prophylaxis: Enoxaparin 30 mg SQ twice daily estimated creatinine clearance 39 mL/min.. Discontinue if platelet count drops less than 50,000 or hemoglobin less than 8 g% Total time of the visit including total time spent in counseling or coordination of care, (more than 50% of the total time, spent in obtaining medical information from nurses and other ancillary care providers,explaining to the patient about labs, imaging, diagnosis and management), discussion with consultants with complexity of immunosuppression and liver transplant, review of labs and imaging is 40 minutes.
--- NOTE | 2021-07-04 18:02 | PHA.PHARE_ITS ---
Consult Pharmacy has been consulted to manage selected antiobiotic: Vancomycin Type of Consult: Follow-up Suspected Infection: Pneumonia Prior Doses of Antibiotics Received/Current Regimen: 500MG IV Q12H. Labs: Sodium 139 mmol/L (136-145) 07/03/21 04:12 Sodium Cancelled 07/03/21 04:12 Potassium 4.7 mmol/L (3.5-5.1) 07/03/21 04:12 Potassium Cancelled 07/03/21 04:12 Chloride 111 mmol/L (98-107) H 07/03/21 04:12 Chloride Cancelled 07/03/21 04:12 Carbon Dioxide 23.0 mmol/L (21.0-32.0) 07/03/21 04:12 Carbon Dioxide Cancelled 07/03/21 04:12 Anion Gap 5 (5-15) 07/03/21 04:12 Anion Gap Cancelled 07/03/21 04:12 BUN 49 mg/dL (7-18) H 07/03/21 04:12 BUN Cancelled 07/03/21 04:12 Creatinine 1.62 mg/dL (0.55-1.02) H 07/03/21 04:12 Creatinine Cancelled 07/03/21 04:12 Est GFR (MDRD) Af Amer 41 mL/min (>60) L 07/03/21 04:12 Est GFR (MDRD) Af Amer Cancelled 07/03/21 04:12 Est GFR (MDRD) Non-Af 34 mL/min (>60) L 07/03/21 04:12 Est GFR (MDRD) Non-Af Cancelled 07/03/21 04:12 BUN/Creatinine Ratio 30.2 RATIO (10-20) H 07/03/21 04:12 BUN/Creatinine Ratio Cancelled 07/03/21 04:12 Glucose 114 mg/dL (74-106) H 07/03/21 04:12 Glucose Cancelled 07/03/21 04:12 Vancomycin Trough 19.9 ug/mL (5.0-15.0) H 07/02/21 17:47 Microbiology: Microbiology 06/28/21 12:01 Blood Culture (Wb) - Right Hand Blood Culture - Final No growth in 5 days. 06/28/21 11:52 Blood Culture (Wb) - Left Hand Blood Culture - Final No growth in 5 days. 06/26/21 20:35 Urine, Clean Catch Streptococcus pneumoniae Antigen (M - Final 06/26/21 20:35 Urine, Clean Catch Legionella Antigen - Final 06/28/21 16:50 Mucosa - Nasopharyngeal Influenza Types A,B Direct FA (ROSEMARIE) - Final Influenzae B 06/26/21 20:35 Urine, Clean Catch Urine Culture - Final Escherichia coli Weight used for dosin kg Estimated Creatinine Clearance: 48ml/min Goal Trough: 15-20 mcg/mL Pharmacy Plan for Drug Dosing: Trough today was 20.3 (~11 hr post dose). CrCl ~48ml/min for calculated adjusted body weight . Changing dose to 750mg iv q24h with goal of next trough 15- 20mcg/ml. Have ordered new trough for before 3rd dose of new regimen. Pharmacy Service will continue to monitor and adjust dosing as required. Follow-Up Labs: Trough Vancomycin - 2.1.22@1130 before 1200 dose
[2021-07-04 18:47] LABS: ALB/GLOB Ratio 0.5 RATIO (0.9-2.4); AST(SGOT) 22 U/L (15-37); Alanine Aminotransfer ALT/SGPT 15 U/L (13-56); Albumin, Serum 2.4 g/dL (3.2-5.0); Alkaline Phosphatase 105 U/L (45-117); Anion Gap 7 (5-15); BUN 50 mg/dL (7-18); BUN/Creat Ratio 36.2 RATIO (10-20); Calcium,Total 9.2 mg/dL (8.5-10.1); Chloride 112 mmol/L (98-107); Creatinine, Serum 1.38 mg/dL (0.55-1.02); EST Glomerular Filtration Rate 41 mL/min (>60); Est Glom Filt Rate - Afr Amer 50 mL/min (>60); Estimated Creatinine Clearance 34.52 ml/min; Globulin 4.4 g/dL (2.2-4.2); Glucose 125 mg/dL (74-106); Potassium 4.8 mmol/L (3.5-5.1); Protein, Total 6.8 g/dL (6.4-8.2); Sodium Level 139 mmol/L (136-145)
[2021-07-04 19:00] VITALS: BP 112/74; PULSE 73; RESP 25; O2SAT 92
[2021-07-04 20:00] VITALS: BP 142/91; PULSE 83; RESP 25; TEMP 37.1; O2SAT 92
[2021-07-04 21:00] VITALS: BP 155/107; PULSE 92; RESP 24; TEMP 37.2; O2SAT 90
[2021-07-04] MEDS: Enoxaparin 40 MG/0.4 ML Syringe SC (21:40)
[2021-07-04] MEDS: Acetaminophen 325 MG Tablet 650 MG PO (21:40)
[2021-07-04] MEDS: Atorvastatin Calcium 10 MG Tablet PO (21:40)
[2021-07-04] MEDS: Ondansetron 4 MG/2 ML Vial IV (21:40)
[2021-07-04 22:00] VITALS: BP 127/78; PULSE 77; RESP 28; TEMP 37.2; O2SAT 87
[2021-07-04 23:00] VITALS: BP 116/68; PULSE 78; RESP 32; TEMP 37.1; O2SAT 88
[2021-07-04 23:04] VITALS: PULSE 76; RESP 26; O2SAT 89
[2021-07-04 23:05] LABS: Absolute Lymphocyte Count 0.38 X10^3/uL (0.83-4.51); Absolute Neutrophil Count 8.8 X10^3/uL (2.0-7.7); Basophil# 0.01 X10^3/uL; Basophil% 0.1 % (0-1); Differential Indicated SCAN CRITERIA MET; Hematocrit 39.4 % (37-47); Lymphocyte # 0.38 X10^3/ul (0.83-4.51); Lymphocyte % 3.8 % (19-41); Mean Corpuscular Hgb 28.1 pg (27.0-32.0); Mean Corpuscular Volume 85.1 fL (81-99); Mean Platelet Vol. 9.7 fl (6.2-12.0); Monocyte# 0.58 X10^3/uL; Monocyte% 5.8 % (0-10); NRBC Flagged by Analyzer 0 % (0-5); Neutrophil # 8.82 X10^3/uL (2.7-7.7); Neutrophil % 88.9 % (47-70); POSITIVE DIFFERENTIAL YES; Platelet Count 171 K/mm3 (150-450); RBC Distribution Width CV 14.2 % (11.6-14.6); RBC Distribution Width SD 43.9 fl (35.1-43.9); Red Blood Count 4.63 M/mm3 (4.2-5.4); White Blood Count 9.9 K/mm3 (4.4-11.0)
[2021-07-04 23:06] LABS: Differential Comment SCANNED
[2021-07-05] VITALS (32 sets, daily range): BP systolic 98–161; BP diastolic 60–107; PULSE 60–96; RESP 12–35; TEMP 36.6–37.4; O2SAT 75–96
[2021-07-05 00:59] LABS: Vancomycin, Trough Level 20.3 ug/mL (5.0-15.0)
[2021-07-05] MEDS: LORazepam 2 MG/ML Syringe 0.5 MG IV ×4 (01:45→23:51)
[2021-07-05 04:37] LABS: Absolute Lymphocyte Count 0.39 X10^3/uL (0.83-4.51); Absolute Neutrophil Count 7.4 X10^3/uL (2.0-7.7); Basophil# 0.03 X10^3/uL; Basophil% 0.3 % (0-1); Hematocrit 39.9 % (37-47); Hemoglobin 12.7 g/dL (12.0-15.0); Lymphocyte # 0.39 X10^3/ul (0.83-4.51); Lymphocyte % 4.5 % (19-41); Mean Corp Hgb Conc 31.8 g/dL (32-36); Mean Corpuscular Hgb 27.2 pg (27.0-32.0); Mean Corpuscular Volume 85.4 fL (81-99); Mean Platelet Vol. 9.7 fl (6.2-12.0); Monocyte# 0.56 X10^3/uL; Monocyte% 6.5 % (0-10); NRBC Flagged by Analyzer 0 % (0-5); Neutrophil # 7.43 X10^3/uL (2.7-7.7); Neutrophil % 86.2 % (47-70); POSITIVE DIFFERENTIAL YES; Platelet Count 154 K/mm3 (150-450); RBC Distribution Width SD 43.8 fl (35.1-43.9); Red Blood Count 4.67 M/mm3 (4.2-5.4); White Blood Count 8.6 K/mm3 (4.4-11.0)
[2021-07-05 04:59] LABS: ALB/GLOB Ratio 0.5 RATIO (0.9-2.4); AST(SGOT) 22 U/L (15-37); Alanine Aminotransfer ALT/SGPT 16 U/L (13-56); Albumin, Serum 2.4 g/dL (3.2-5.0); Alkaline Phosphatase 112 U/L (45-117); Anion Gap 5 (5-15); BUN 56 mg/dL (7-18); BUN/Creat Ratio 41.8 RATIO (10-20); Calcium,Total 9.3 mg/dL (8.5-10.1); Chloride 113 mmol/L (98-107); Creatinine, Serum 1.34 mg/dL (0.55-1.02); EST Glomerular Filtration Rate 42 mL/min (>60); Est Glom Filt Rate - Afr Amer 51 mL/min (>60); Estimated Creatinine Clearance 35.55 ml/min; Globulin 4.4 g/dL (2.2-4.2); Glucose 135 mg/dL (74-106); Potassium 5.1 mmol/L (3.5-5.1); Protein, Total 6.8 g/dL (6.4-8.2); Sodium Level 140 mmol/L (136-145)
[2021-07-05 05:31] LABS: Differential Indicated SCAN CRITERIA MET
--- NOTE | 2021-07-05 06:01 | PCM.PN.INT ---
Assessment & Plan Assessment/Plan (1) COVID-19: (2) Influenza B: PLAN: RECOMMENDATIONS: 1. Continue BiPAP/Airvo therapy and wean FiO2 for saturations greater than 90%. 2. Continue empiric antimicrobials. 3. Continue Decadron to complete 10-day treatment course. 4. Continue prophylactic Lovenox. 5. Attempt gentle diuresis today. 6. The patient should remain n.p.o. given tenuous respiratory status. IMPRESSIONS: 1. Acute hypoxemic respiratory failure secondary to COVID-19/influenza B The patient was initially admitted to the hospital on June 27 and subsequently tested positive for both COVID-19 and influenza. The patient is vaccinated at her baseline. However, she is immunosuppressed due to a history of a liver transplant. Her oxygenation status has worsened over the course of her hospitalization. She continues to require BiPAP support. She has completed her treatment course of Tamiflu. It is reasonable to continue Decadron, empiric antimicrobials and prophylactic Lovenox. Wean FiO2 for oxygen saturations greater than 90%. Will attempt gentle diuresis today. The patient remains at high risk for further clinical decompensation and the need for intubation. 2. Acute kidney injury Likely prerenal in etiology in the setting of her acute presentation. Will need to monitor volume status closely. Continue to monitor urine output. No current indication for renal replacement therapy. 3. Chronic baseline immunosuppressed state secondary to liver transplantation Continue baseline outpatient immunosuppressive regimen. Hold CellCept, per managed care coordinator recommendations. 4. Morbid obesity/asthma/hypothyroidism/hyperlipidemia/GERD Complicates care, management, recovery and prognosis. Continue home medications as indicated. TIME: 32 minutes of critical care time, independent of procedures, was spent addressing the patient's acute hypoxemic respiratory failure secondary to combined COVID-19 and influenza B, acute kidney injury, review of all data and collaboration with the care team. Subjective Subjective The patient was seen and examined at the bedside this morning. Events from the last 24 hours have been reviewed. The patient is currently afebrile and hemodynamically stable. She continues to struggle from a respiratory perspective. The patient remains confrontational at times. Last evening, the patient initially refused to utilize BiPAP and was placed on a combination of Airvo and a nonrebreather, which led to saturations in the low to mid 80s. Around midnight, the patient relented and agreed to utilize the BiPAP. She is currently requiring an FiO2 of 100%. The patient remains insistent that she would only allow for intubation if it were an emergent issue. She is currently documented to be overall net +2.3 L for the hospitalization. She remains on antimicrobials, Decadron and prophylactic Lovenox. She completed her course of Tamiflu. Creatinine is stable at 1.34. Objective Data Objective Data The patient's most recent lab work, culture data and imaging studies have all been personally reviewed. Coronavirus PCR was positive on June 26. Influenza screen was positive for flu B. Vital Signs: Vital Signs Temp Pulse Resp BP Pulse Ox 97.9 F 60 24 H 147/83 H 93 07/05/21 05:00 07/05/21 05:00 07/05/21 05:00 07/05/21 05:00 07/05/21 05:00 Oxygen Flow Rate (L/min) [ 3 AMBULATING with Oxygen #1] Oxygen Flow Rate (L/min) 60 Oxygen Delivery Method Bi-pap Weight: 104.1 kg Body Mass Index (BMI) 40.8 Intake & Output: Intake and Output for Last 24 Hours 07/03/21 07/04/21 07/05/21 23:59 23:59 23:59 Intake Total 650.00 / 650.00 200 / 440 240 / 240 Output Total 1050 / 1050 300 / 300 Balance -400.00 / -400.00 200 / 440 -60 / -60 Lab / Micro Data Attestation: I reviewed the patient's lab results. Result Diagrams: 07/05/21 04:26 07/05/21 04:26 Labs: Laboratory Results - last 24 hr 07/04/21 03:25: WBC 9.9, RBC 4.63, Hgb 13.0, Hct 39.4, MCV 85.1, MCH 28.1, MCHC 33.0, RDW Std Deviation 43.9, RDW Coeff of Tyrell 14.2, Plt Count 171, MPV 9.7, Immature Gran % (Auto) 1.400 H, Neut % (Auto) 88.9 H, Lymph % (Auto) 3.8 L, [place] % (Auto) 5.8, Eos % (Auto) 0.0, Baso % (Auto) 0.1, Absolute Neuts (auto) 8.8 H, Absolute Lymphs (auto) 0.38 L, Nucleated RBC % 0, Differential Comment SCANNED 07/04/21 03:25: Sodium 139, Potassium 4.8, Chloride 112 H, Carbon Dioxide 20.0 L, Anion Gap 7, BUN 50 H, Creatinine 1.38 H, Estim Creat Clear Calc 34.52, Est GFR (MDRD) Af Amer 50 L, Est GFR (MDRD) Non-Af 41 L, BUN/Creatinine Ratio 36.2 H, Glucose 125 H, Calcium 9.2, Total Bilirubin 0.50, AST 22, ALT 15, Alkaline Phosphatase 105, Total Protein 6.8, Albumin 2.4 L, Globulin 4.4 H, Albumin/Globulin Ratio 0.5 L 07/04/21 08:30: Vancomycin Trough 20.3 H 07/05/21 04:26: WBC 8.6, RBC 4.67, Hgb 12.7, Hct 39.9, MCV 85.4, MCH 27.2, MCHC 31.8 L, RDW Std Deviation 43.8, RDW Coeff of Tyrell 14.0, Plt Count 154, MPV 9.7, Immature Gran % (Auto) 2.500 H, Neut % (Auto) 86.2 H, Lymph % (Auto) 4.5 L, [place] % (Auto) 6.5, Eos % (Auto) 0.0, Baso % (Auto) 0.3, Absolute Neuts (auto) 7.4, Absolute Lymphs (auto) 0.39 L, Nucleated RBC % 0 07/05/21 04:26: Sodium 140, Potassium 5.1, Chloride 113 H, Carbon Dioxide 22.0, Anion Gap 5, BUN 56 H, Creatinine 1.34 H, Estim Creat Clear Calc 35.55, Est GFR (MDRD) Af Amer 51 L, Est GFR (MDRD) Non-Af 42 L, BUN/Creatinine Ratio 41.8 H, Glucose 135 H, Calcium 9.3, Total Bilirubin 0.50, AST 22, ALT 16, Alkaline Phosphatase 112, Total Protein 6.8, Albumin 2.4 L, Globulin 4.4 H, Albumin/Globulin Ratio 0.5 L Micro: Microbiology 06/28/21 12:01 Blood Culture (Wb) - Right Hand Blood Culture - Final No growth in 5 days. 06/28/21 11:52 Blood Culture (Wb) - Left Hand Blood Culture - Final No growth in 5 days. 06/26/21 20:35 Urine, Clean Catch Streptococcus pneumoniae Antigen (M - Final 06/26/21 20:35 Urine, Clean Catch Legionella Antigen - Final 06/28/21 16:50 Mucosa - Nasopharyngeal Influenza Types A,B Direct FA (ROSEMARIE) - Final Influenzae B 06/26/21 20:35 Urine, Clean Catch Urine Culture - Final Escherichia coli Physical Exam Const alert General Appearance: cooperative, ill appearing and on BiPAP Nutritional Appearance: morbidly obese HEENT normocephalic and head/scalp atraumatic Eyes PERRL, EOMs intact bilaterally and conjunctivae normal Neck supple General: trachea midline Chest inspection of chest normal Resp Effort and Inspection: tachypneic Auscultation: diminished lung sounds; Negative for rales, rhonchi or wheezes Cardio regular rate and regular rhythm GI normal to inspection, nondistended, normoactive bowel sounds Extremity no clubbing, cyanosis or edema Skin no rashes or lesions noted Neuro CN's II-XII intact bilaterally, moves all extremities and no focal motor deficits Psych Mood & Affect: anxious Charges/Coding Procedures Hospitalists Procedures: [id number] Critial Care 1st Hr
[2021-07-05] MEDS: Furosemide 40 MG/4 ML Vial IV (08:18)
[2021-07-05] MEDS: dexAMETHasone 10 MG/ML Vial 6 MG IV (08:19)
[2021-07-05] MEDS: Enoxaparin 40 MG/0.4 ML Syringe SC ×3 (08:21→21:56)
[2021-07-05] MEDS: 0.9% Saline Lock 10 ML Syringe IV (08:21)
[2021-07-05] MEDS: Aspirin E.C. 81 MG Tablet PO (09:28)
[2021-07-05] MEDS: Ursodiol 250 MG Tablet PO ×2 (09:28→21:56)
[2021-07-05] MEDS: Cholecalciferol (VIT D3) 25 MCG TABLET (1,000 UNITS) 50 MCG PO (09:28)
[2021-07-05] MEDS: Ascorbic Acid 500 MG Tablet PO (09:28)
[2021-07-05] MEDS: Levothyroxine 88 MCG Tablet PO (09:28)
[2021-07-05] MEDS: rifAXIMin 550 MG Tablet PO ×2 (09:29→21:55)
[2021-07-05] MEDS: guaiFENesin 1,200 MG Tablet 1200 MG PO ×2 (09:29→21:56)
[2021-07-05] MEDS: Tacrolimus Anhydrous 1 MG Capsule 2 MG PO ×2 (09:30→21:56)
[2021-07-05] MEDS: Calcium (Elemental) 500 MG Tablet PO ×2 (09:30→21:55)
[2021-07-05] MEDS: Tacrolimus 0.5 MG Capsule PO ×2 (09:31→21:56)
--- NOTE | 2021-07-05 11:28 | PN.HOSP_ITS ---
Subjective Subjective Seen and examined. Patient is on BiPAP. Subjectively she feels better. Tachypneic. Objective Data Objective Data Vital Signs: Vital Signs Temp Pulse Resp BP Pulse Ox 99 F 82 27 H 119/66 92 07/05/21 10:00 07/05/21 10:00 07/05/21 10:00 07/05/21 10:00 07/05/21 10:00 Oxygen Flow Rate (L/min) [ 3 AMBULATING with Oxygen #1] Oxygen Flow Rate (L/min) 60 Oxygen Delivery Method Bi-pap Weight: 229 lb 8.019 oz Body Mass Index (BMI) 40.8 Intake & Output: Intake and Output for Last 24 Hours 07/03/21 07/04/21 07/05/21 23:59 23:59 23:59 Intake Total 650.00 / 650.00 300 / 540 400 / 400 Output Total 1050 / 1050 1450 / 1450 Balance -400.00 / -400.00 300 / 540 -1050 / -1050 Lab / Micro Data Result Diagrams: 07/05/21 04:26 07/05/21 04:26 Labs: Laboratory Results - last 24 hr 07/04/21 03:25: WBC 9.9, RBC 4.63, Hgb 13.0, Hct 39.4, MCV 85.1, MCH 28.1, MCHC 33.0, RDW Std Deviation 43.9, RDW Coeff of Tyrell 14.2, Plt Count 171, MPV 9.7, Immature Gran % (Auto) 1.400 H, Neut % (Auto) 88.9 H, Lymph % (Auto) 3.8 L, Gilmer % (Auto) 5.8, Eos % (Auto) 0.0, Baso % (Auto) 0.1, Absolute Neuts (auto) 8.8 H, Absolute Lymphs (auto) 0.38 L, Nucleated RBC % 0, Differential Comment SCANNED 07/04/21 03:25: Sodium 139, Potassium 4.8, Chloride 112 H, Carbon Dioxide 20.0 L , Anion Gap 7, BUN 50 H, Creatinine 1.38 H, Estim Creat Clear Calc 34.52, Est GFR (MDRD) Af Amer 50 L, Est GFR (MDRD) Non-Af 41 L, BUN/Creatinine Ratio 36.2 H , Glucose 125 H, Calcium 9.2, Total Bilirubin 0.50, AST 22, ALT 15, Alkaline Phosphatase 105, Total Protein 6.8, Albumin 2.4 L, Globulin 4.4 H, Albumin/Globulin Ratio 0.5 L 07/04/21 08:30: Vancomycin Trough 20.3 H 07/05/21 04:26: WBC 8.6, RBC 4.67, Hgb 12.7, Hct 39.9, MCV 85.4, MCH 27.2, MCHC 31.8 L, RDW Std Deviation 43.8, RDW Coeff of Tyrell 14.0, Plt Count 154, MPV 9.7, Immature Gran % (Auto) 2.500 H, Neut % (Auto) 86.2 H, Lymph % (Auto) 4.5 L, Gilmer % (Auto) 6.5, Eos % (Auto) 0.0, Baso % (Auto) 0.3, Absolute Neuts (auto) 7.4, Absolute Lymphs (auto) 0.39 L, Nucleated RBC % 0 07/05/21 04:26: Sodium 140, Potassium 5.1, Chloride 113 H, Carbon Dioxide 22.0, Anion Gap 5, BUN 56 H, Creatinine 1.34 H, Estim Creat Clear Calc 35.55, Est GFR (MDRD) Af Amer 51 L, Est GFR (MDRD) Non-Af 42 L, BUN/Creatinine Ratio 41.8 H, Glucose 135 H, Calcium 9.3, Total Bilirubin 0.50, AST 22, ALT 16, Alkaline Phosphatase 112, Total Protein 6.8, Albumin 2.4 L, Globulin 4.4 H, Albumin/Globulin Ratio 0.5 L Micro: Microbiology 06/28/21 12:01 Blood Culture (Wb) - Right Hand Blood Culture - Final No growth in 5 days. 06/28/21 11:52 Blood Culture (Wb) - Left Hand Blood Culture - Final No growth in 5 days. 06/26/21 20:35 Urine, Clean Catch Streptococcus pneumoniae Antigen (M - F inal 06/26/21 20:35 Urine, Clean Catch Legionella Antigen - Final 06/28/21 16:50 Mucosa - Nasopharyngeal Influenza Types A,B Direct FA (ROSEMARIE) - Final Influenzae B 06/26/21 20:35 Urine, Clean Catch Urine Culture - Final Escherichia coli Physical Exam Narrative Physical exam General: Alert, calm oriented x3. BMI 40.8 kg/m?, afebrile HEENT: Atraumatic, PERRLA, EOMI, Normocephalic Oral: On BiPAP. Neck: Supple, No JVD, Negative Carotid Bruits Lungs: Dyspnea at rest, tachypnea and severe hypoxia. Air entry diminished in bilateral lung bases. On BiPAP 90% FiO2 Cardiovascular: Regular rate, Regular Rhythm, Normal S1, Normal S2, No murmurs Abdomen: Bowel Sounds Present, Soft, Non Tender, Non-Distended : No renal angle tenderness. No suprapubic tenderness. Extremities: Mild edema of lower extremities edema, with generalized fat. Dunbar hump over neck. Skin: No rashes, No breakdown Musculoskeletal: No Tenderness to Palpation of Joints or Extremities Neurological: Cranial nerves II-XII grossly intact, DTR 2+/4 and Symmetrical, Neuro grossly intact Psych/Mental Status: At times agitated Assessment & Plan Assessment/Plan (1) Hypoxia: (2) Respiratory failure: QUALIFIERS: Chronicity: acute Respiratory failure complication: hypoxia Qualified Code(s): J96.01 - Acute respiratory failure with hypoxia (3) Suspected COVID-19 virus infection: PLAN: 1. Acute hypoxic respiratory failure due to bilateral COVID-19 pneumonia and possible bacterial secondary infection: 06/29: Patient oxygenation and ventilation is worsening. On air Vo, 92% FiO2. On IV antibiotic vancomycin and cefepime. Bronchopulmonary hygiene with incentive spirometry with Pep and Mucinex 06/30: Discussed with ID. Agree with antibiotic plan. Discussed with service desk team lead. On 94 200% BiPAP. 07/01: Respiratory status is slightly better than yesterday. On 60% FiO2. On intermittent furosemide. The patient is doing incentive spirometry and pep 07/02: Respiratory status is worse than yesterday. Started on BiPAP. I discussed with junior electrical engineer will transfer to ICU for close monitoring. Incentive spirometry, Pep and other medications to continue 07/03: Discussed with the junior electrical engineer. Patient desaturates off BiPAP with severe respiratory distress therefore cannot eat. Patient is frustrated and agitated as she cannot eat. Patient at risk for further respiratory deterioration and need for intubation. 07/04: Patient continues to be on BiPAP 100% FiO2, maximum capacity. Discussed with the nursing staff. 07/05: Patient on 90% FiO2. Still tachypneic. She only wants intubation as a last resort in order to save her life but not premature. 2. Acute COVID-19 pneumonia with bacterial superinfection Onset is probably around 3 weeks ago Continue with dexamethasone, when patient has completed dexamethasone would wean prednisone back to her 5 mg daily. Not a candidate for remdesivir given the timing 06/30: Influenza B positive. Tamiflu added. Continue Decadron. Not candidate for baricitinib for history of liver transplant immunosuppression. ALC 0.3 K. ANC 6.2 thousand. D-dimer 1.57. Serum magnesium and phosphorus level normal. CRP, ferritin are elevated. Chest x-ray on 06/30 shows improved aeration with residual patchy infiltrates worse in right lower lobe 07/02: On cefepime and vancomycin. 3. Status post liver transplant. Immunocompromised host. Continue steroids, tacrolimus, mycophenolate However the patient the option to be transferred to [facility] [place] where her transplant was performed. She would prefer to stay here. ALT AST normal limit. Total bilirubin 0.5. Alkaline phosphatase normal. 07/02: I talked to patient's health power of transactional attorney, Mrs. Negro Call. She said she is no longer on lactulose and Xifaxan after liver transplant is hepatic encephalopathy resolved. Furthermore, she thinks tacrolimus dose is not right. I asked her to bring all patient's home medications for our pharmacist to review and confirm with her pharmacy[facility] and will update home medication list. Tacrolimus level tomorrow AM. 07/04: Nursing staff talked to [facility] patient scheduling coordinator. learning center coordinator said that they are not using mycophenolate on COVID-19 pneumonia with respiratory failure on transplant patients. Therefore mycophenolate discontinued on 07/03 evening 4. OPAL on CKD stage 3b: Serum creatinine improved from 1.68-1.25. Patient creatinine was normal about 1.0 in May 2017 and then gradually improved probably due to cirrhosis it was about 1.5-1.6 in in 2017-07 26. 07/01: BUN/creatinine 37/1.5. Worsening due to furosemide 07/03: Creatinine 1.62 . The patient's daughter said her creatinine has always been fluctuating because of interaction with different immunosuppression medications. Continue to hold diuretic. 07/05: BUN/creatinine on baseline. Creatinine 1.34 5. VTE prophylaxis: Enoxaparin 30 mg SQ twice daily estimated creatinine clearance 39 mL/min.. Discontinue if platelet count drops less than 50,000 or hemoglobin less than 8 g% Total time of the visit including total time spent in counseling or coordination of care, (more than 50% of the total time, spent in obtaining medical information from nurses and other ancillary care providers,explaining to the patient about labs, imaging, diagnosis and management), discussion with consultants with complexity of immunosuppression and liver transplant, review of labs and imaging is 40 minutes. Active Medications Acetaminophen (Acetaminophen 325 Mg Tablet) 650 mg PO Q6H PRN PRN PRN Reason: Pain 1-10 or Fever Last Admin: 07/04/21 21:40 Dose: 650 mg Documented by: Albuterol Sulfate (Albuterol Ih 8.5 Gm (Proair) Inhaler (200 Puffs)) 2 puff INHALATION Q6H PRN PRN PRN Reason: sob/wheezing Last Admin: 07/01/21 22:24 Dose: 2 puff Documented by: Ascorbic Acid ([facility]ic Acid 500 Mg Tablet) [facility] Last Admin: 07/05/21 09:28 Dose: 500 mg Documented by: Aspirin (Aspirin E.C. 81 Mg Tablet) 81 mg PO DAILY [facility] Last Admin: 07/05/21 09:28 Dose: 81 mg Documented by: Atorvastatin Calcium (Atorvastatin Calcium 10 Mg Tablet) 10 mg PO QHS [facility] Last Admin: 07/04/21 21:40 Dose: 10 mg Documented by: Benzonatate (Benzonatate 100 Mg Capsule) 100 mg PO Q4H PRN PRN PRN Reason: COUGH Last Admin: 06/29/21 09:46 Dose: 100 mg Documented by: Calcium Carbonate (Calcium (Elemental) 500 Mg Tablet) 500 mg PO BID [facility] Last Admin: 07/05/21 09:30 Dose: 500 mg Documented by: Cholecalciferol (Cholecalciferol (Vit D3) 25 Mcg Tablet (1,000 Units)) 50 mcg PO DAILY [facility] Last Admin: 07/05/21 09:28 Dose: 50 mcg Documented by: Dexamethasone Sodium Phosphate (Dexamethasone 10 Mg/Ml Vial) 6 mg IV DAILY [facility] Last Admin: 07/05/21 08:19 Dose: 6 mg Documented by: Enoxaparin Sodium (Enoxaparin 40 Mg/0.4 Ml Syringe) 40 mg SC BID [facility] Last Admin: 07/05/21 08:21 Dose: 40 mg Documented by: Ferrous Gluconate (Ferrous Gluconate 324 Mg Tablet) 324 mg PO QODAY [facility] Guaifenesin (Guaifenesin 1,200 Mg Tablet) 1,200 mg PO BID [facility] Last Admin: 07/05/21 09:29 Dose: 1,200 mg Documented by: Sodium Chloride () 250 mls @ 15 mls/hr IV .[id number] PRN PRN Reason: Saline Flush Last Admin: 07/05/21 04:36 Dose: 15 mls/hr Documented by: Sodium Chloride () 250 mls @ 15 mls/hr IV .[id number] PRN PRN Reason: Additional IVPB Infusion Cefepime HCl 2 gm/ Sodium (Chloride) 100 mls @ 200 mls/hr IV Q12 [facility] Last Infusion: 07/05/21 09:32 Dose: Infused Documented by: Vancomycin IV-PHARMACY TO DOSE (1 each/ Sodium Chloride) 500 mls @ 250 mls/hr IV PRN PRN; Protocol PRN Reason: Rx to Dose Vancomycin HCl 750 mg/ Sodium (Chloride) 265 mls @ 250 mls/hr IV Q24H [facility] Levothyroxine Sodium (Levothyroxine 88 Mcg Tablet) 88 mcg PO DAILY [facility] Last Admin: 07/05/21 09:28 Dose: 88 mcg Documented by: Lorazepam (Lorazepam 2 Mg/Ml Syringe) 0.5 mg IV Q4H PRN PRN PRN Reason: severe anxiety with BIPAP Last Admin: 07/05/21 08:20 Dose: 0.5 mg Documented by: Miscellaneous Information (Inhaler, Assist Devices 1 Each Spacer) 1 each INHALATION PRN PRN PRN Reason: WITH ALBUTEROL INHALER Ondansetron HCl (Ondansetron 4 Mg/2 Ml Vial) 4 mg IV Q6H PRN PRN PRN Reason: NAUSEA/VOMITING Last Admin: 07/04/21 21:40 Dose: 4 mg Documented by: Rifaximin (Rifaximin 550 Mg Tablet) 550 mg PO BID [facility] Last Admin: 07/05/21 09:29 Dose: 550 mg Documented by: Sodium Chloride (0.9% Saline Lock 10 Ml Syringe) 10 - 40 ml IV UD PRN PRN Reason: SALINE FLUSH Last Admin: 07/05/21 08:21 Dose: 10 ml Documented by: Tacrolimus (Tacrolimus Anhydrous 1 Mg Capsule) 2 mg PO Q12 [facility] Last Admin: 07/05/21 09:30 Dose: 2 mg Documented by: Tacrolimus (Tacrolimus 0.5 Mg Capsule) 0.5 mg PO Q12 [facility] Last Admin: 07/05/21 09:31 Dose: 0.5 mg Documented by: Trimethoprim/Sulfamethoxazole (Smz/Tmp Ds Tablet) 1 tablet PO MoWeFr@1000 [facility] Last Admin: 07/03/21 11:22 Dose: 1 tablet Documented by: Ursodiol (Ursodiol 250 Mg Tablet) 250 mg PO BID [facility] Last Admin: 07/05/21 09:28 Dose: 250 mg Documented by: Zinc Sulfate (Zinc Sulfate (50mg Elemental) 220 Mg Capsule) 220 mg PO DAILY [facility] Last Admin: 07/05/21 09:28 Dose: 220 mg Documented by: Charges/Coding Visit Charges Inpatient E&M: 38199 Subs Hosp L3
[2021-07-05] MEDS: Ondansetron 4 MG/2 ML Vial IV (14:47)
[2021-07-05] MEDS: Atorvastatin Calcium 10 MG Tablet PO (21:55)
[2021-07-06] VITALS (39 sets, daily range): BP systolic 76–174; BP diastolic 50–99; PULSE 66–96; RESP 12–35; TEMP 36.6–37.5; O2SAT 89–97
[2021-07-06 05:57] LABS: Absolute Lymphocyte Count 0.37 X10^3/uL (0.83-4.51); Absolute Neutrophil Count 8.6 X10^3/uL (2.0-7.7); Basophil# 0.02 X10^3/uL; Basophil% 0.2 % (0-1); Hematocrit 41.8 % (37-47); Lymphocyte # 0.37 X10^3/ul (0.83-4.51); Lymphocyte % 3.7 % (19-41); Mean Corp Hgb Conc 31.1 g/dL (32-36); Mean Corpuscular Hgb 26.6 pg (27.0-32.0); Mean Corpuscular Volume 85.5 fL (81-99); Monocyte# 0.63 X10^3/uL; Monocyte% 6.4 % (0-10); NRBC Flagged by Analyzer 0 % (0-5); Neutrophil # 8.64 X10^3/uL (2.7-7.7); Neutrophil % 87.3 % (47-70); POSITIVE DIFFERENTIAL YES; Platelet Count 179 K/mm3 (150-450); RBC Distribution Width CV 13.9 % (11.6-14.6); RBC Distribution Width SD 43.4 fl (35.1-43.9); Red Blood Count 4.89 M/mm3 (4.2-5.4); White Blood Count 9.9 K/mm3 (4.4-11.0)
[2021-07-06 06:09] LABS: Differential Indicated SCAN CRITERIA MET
[2021-07-06 06:24] LABS: ALB/GLOB Ratio 0.6 RATIO (0.9-2.4); AST(SGOT) 22 U/L (15-37); Alanine Aminotransfer ALT/SGPT 15 U/L (13-56); Albumin, Serum 2.5 g/dL (3.2-5.0); Alkaline Phosphatase 120 U/L (45-117); Anion Gap 8 (5-15); BUN 70 mg/dL (7-18); Calcium,Total 9.3 mg/dL (8.5-10.1); Chloride 113 mmol/L (98-107); EST Glomerular Filtration Rate 40 mL/min (>60); Est Glom Filt Rate - Afr Amer 49 mL/min (>60); Estimated Creatinine Clearance 34.02 ml/min; Globulin 4.5 g/dL (2.2-4.2); Glucose 101 mg/dL (74-106); Potassium 4.4 mmol/L (3.5-5.1); Sodium Level 141 mmol/L (136-145)
--- NOTE | 2021-07-06 07:00 | PN.CC_ITS ---
Assessment & Plan Assessment/Plan (1) COVID-19: (2) Influenza B: PLAN: RECOMMENDATIONS: 1. Continue BiPAP/Airvo therapy and wean FiO2 for saturations greater than 90%. 2. Discontinue antibiotics given completion of a 7-day course 3. Continue Decadron to complete 10-day treatment course. 4. Continue prophylactic Lovenox. 5. Consider intubation if patient is agreeable 6. The patient should remain n.p.o. given tenuous respiratory status. IMPRESSIONS: 1. Acute hypoxemic respiratory failure secondary to COVID-19/influenza B The patient was initially admitted to the hospital on June 27 and subsequently tested positive for both COVID-19 and influenza. The patient is vaccinated at her baseline. However, she is immunosuppressed due to a history of a liver transplant. Her oxygenation status has worsened over the course of her hospitalization. She currently is requiring almost continuous BiPAP support. She has completed her treatment course of Tamiflu. It is reasonable to continue Decadron and prophylactic Lovenox. Patient is currently afebrile, without leukocytosis or fever. Will discontinue antibiotics and monitor clinically. Wean FiO2 for oxygen saturations greater than 90%. Will hold on diuresis today. The patient remains at high risk for further clinical decompensation and the need for intubation. 2. Acute kidney injury Likely prerenal in etiology in the setting of her acute presentation. Will need to monitor volume status closely. Continue to monitor urine output. No current indication for renal replacement therapy. Significant elevation in BUN may be secondary to steroids 3. Chronic baseline immunosuppressed state secondary to liver transplantation Continue baseline outpatient immunosuppressive regimen. Hold CellCept, per clinical transplant coordinator recommendations. 4. Morbid obesity/asthma/hypothyroidism/hyperlipidemia/GERD Complicates care, management, recovery and prognosis. Continue home medications as indicated. TIME: 37 minutes of critical care time was spent addressing the patient's acute hypoxemic respiratory failure secondary to combined COVID-19 and influenza B, acute kidney injury, review of all data and collaboration with the care team. Subjective Subjective The patient did okay overnight. Patient remains n.p.o. secondary to concerns for aspiration. Patient is reporting a dry mouth and sore throat this morning. Patient was very tearful in discussing intubation reporting that she is scared that she will not be able to come off of the machine. Patient did appear to be somewhat receptive to the rationale, but continues to refuse intubation at this time. Objective Data Objective Data Vital Signs: Vital Signs Temp Pulse Resp BP Pulse Ox 36.9 C 90 27 H 127/82 H 91 07/06/21 06:00 07/06/21 06:00 07/06/21 06:00 07/06/21 06:00 07/06/21 06:00 Oxygen Flow Rate (L/min) [ 3 AMBULATING with Oxygen #1] Oxygen Flow Rate (L/min) 60 Oxygen Delivery Method Bi-pap Weight: 99.4 kg Body Mass Index (BMI) 40.8 Intake & Output: Intake and Output for Last 24 Hours 07/04/21 07/05/21 07/06/21 23:59 23:59 23:59 Intake Total 400 / 640 765 / 773 8 / 8 Output Total 1999 / 2149 150 / 150 Balance 400 / 640 -1235 / -1377 -142 / -142 Lab / Micro Data Result Diagrams: 07/06/21 05:30 07/06/21 05:30 Labs: Laboratory Results - last 24 hr 07/06/21 05:30: WBC 9.9, RBC 4.89, Hgb 13.0, Hct 41.8, MCV 85.5, MCH 26.6 L, MCHC 31.1 L, RDW Std Deviation 43.4, RDW Coeff of Tyrell 13.9, Plt Count 179, MPV 10.0, Immature Gran % (Auto) 2.400 H, Neut % (Auto) 87.3 H, Lymph % (Auto) 3.7 L , [place] % (Auto) 6.4, Eos % (Auto) 0.0, Baso % (Auto) 0.2, Absolute Neuts (auto) 8.6 H, Absolute Lymphs (auto) 0.37 L, Nucleated RBC % 0 07/06/21 05:30: Sodium 141, Potassium 4.4, Chloride 113 H, Carbon Dioxide 20.0 L , Anion Gap 8, BUN 70 H, Creatinine 1.40 H, Estim Creat Clear Calc 34.02, Est GFR (MDRD) Af Amer 49 L, Est GFR (MDRD) Non-Af 40 L, BUN/Creatinine Ratio 50.0 H , Glucose 101, Calcium 9.3, Total Bilirubin 0.50, AST 22, ALT 15, Alkaline Phosphatase 120 H, Total Protein 7.0, Albumin 2.5 L, Globulin 4.5 H, Albumin/Globulin Ratio 0.6 L Micro: Microbiology 06/28/21 12:01 Blood Culture (Wb) - Right Hand Blood Culture - Final No growth in 5 days. 06/28/21 11:52 Blood Culture (Wb) - Left Hand Blood Culture - Final No growth in 5 days. 06/26/21 20:35 Urine, Clean Catch Streptococcus pneumoniae Antigen (M - Final 06/26/21 20:35 Urine, Clean Catch Legionella Antigen - Final 06/28/21 16:50 Mucosa - Nasopharyngeal Influenza Types A,B Direct FA (ROSEMARIE) - Final Influenzae B 06/26/21 20:35 Urine, Clean Catch Urine Culture - Final Escherichia coli Physical Exam Const alert Constitutional Narrative: Able to vocalize through BiPAP General Appearance: cooperative, ill appearing and on BiPAP Nutritional Appearance: morbidly obese HEENT normocephalic and head/scalp atraumatic Eyes PERRL, EOMs intact bilaterally and conjunctivae normal Neck supple General: trachea midline Chest inspection of chest normal Chest: symmetrical chest wall rise; Negative for crepitus Resp Effort and Inspection: tachypneic Auscultation: diminished lung sounds; Negative for rales, rhonchi or wheezes Cardio regular rate and regular rhythm GI normal to inspection, nondistended, normoactive bowel sounds Extremity no clubbing, cyanosis or edema Extremity Narrative: Bilateral AKA Skin no rashes or lesions noted Neuro CN's II-XII intact bilaterally, moves all extremities and no focal motor deficits Psych Mood & Affect: anxious Charges/Coding Procedures Hospitalists Procedures: 44989 Critial Care 1st Hr
[2021-07-06] MEDS: LORazepam 2 MG/ML Syringe 0.5 MG IV (08:08)
[2021-07-06] MEDS: dexAMETHasone 10 MG/ML Vial 6 MG IV (08:09)
[2021-07-06] MEDS: Enoxaparin 40 MG/0.4 ML Syringe SC ×2 (08:12→20:12)
[2021-07-06] MEDS: rifAXIMin 550 MG Tablet PO ×2 (08:17→20:18)
[2021-07-06] MEDS: Calcium (Elemental) 500 MG Tablet PO ×2 (08:17→20:13)
[2021-07-06] MEDS: Cholecalciferol (VIT D3) 25 MCG TABLET (1,000 UNITS) 50 MCG PO (08:17)
[2021-07-06] MEDS: guaiFENesin 1,200 MG Tablet 1200 MG PO (08:18)
[2021-07-06] MEDS: Smz/Tmp Ds Tablet 1 TABLET PO (08:18)
[2021-07-06] MEDS: Ascorbic Acid 500 MG Tablet PO ×2 (08:18→16:22)
[2021-07-06] MEDS: Ursodiol 250 MG Tablet PO ×2 (08:18→20:13)
[2021-07-06] MEDS: Tacrolimus 0.5 MG Capsule PO ×2 (08:19→20:13)
[2021-07-06] MEDS: Tacrolimus Anhydrous 1 MG Capsule 2 MG PO ×2 (08:19→20:13)
[2021-07-06] MEDS: Aspirin E.C. 81 MG Tablet PO (08:19)
[2021-07-06] MEDS: Levothyroxine 88 MCG Tablet PO (08:19)
[2021-07-06] MEDS: Ferrous Gluconate 324 MG Tablet PO (08:21)
[2021-07-06] MEDS: Ondansetron 4 MG/2 ML Vial IV (08:35)
--- NOTE | 2021-07-06 09:27 | CASEMGMT ---
Addendum entered by Sujey Duckworth 07/06/21 09:48: Social Work SW called daughter Tapan to offer support. SW let Tapan know SW is available for any assist or support as needed, daughter states understanding. SW will continue to follow and remains available. GRISELDA Glez Original Note: Social Work LW/Healthcare POA are in the echart, pt's daughter Tapan is listed as healthcare POA. Daughter Tapan is listed as healthcare POA. Documents printed and placed in the paper chart, RN aware papers on chart showing Tapan is POA. GRISELDA Glez
--- NOTE | 2021-07-06 10:55 | RAD_ITS ---
STUDY: X-RAY CHEST REASON FOR EXAM: Female, 61 years old. ETT placement and OG TECHNIQUE: AP COMPARISON: 07/02/2021 FINDINGS: Endotracheal tube has been placed with tip projecting over the right mainstem bronchus. Esophagogastric tube extends the left upper abdomen/stomach. Left arm PICC present with tip overlying the lower SVC. Patchy bilateral pulmonary infiltrates are overall stable. There is no demonstrated pleural abnormality. Normal size heart. Normal mediastinum and rebeca. Normal visualized pulmonary arteries. There is atherosclerotic calcification of the aortic arch with tortuosity. No acute bony process. There is no demonstrated abnormality of the visualized soft tissue structures of the upper abdomen. RAD/Chest 1 View (Portable) IMPRESSION: 1. Right mainstem bronchial intubation. Follow-up x-ray demonstrating endotracheal tube retraction and satisfactory placement already performed at time of dictation. Electronically Signed: Scott Zhou MD ([place]) at 11:28 EST Reading Location ID and State: / [place] , Service support ,
[2021-07-06] MEDS: Etomidate 20 MG/10 ML Vial IV (10:57)
[2021-07-06] MEDS: Propofol 10MG/Ml 1,000 MG/100 ML Bottle 29.8 MG CONT INF ×2 (10:57→12:35)
[2021-07-06] MEDS: Succinylcholine Chloride 200 MG/10 ML Vial 100 MG IV (11:00)
--- NOTE | 2021-07-06 11:09 | RAD_ITS ---
STUDY: X-RAY CHEST REASON FOR EXAM: Female, 61 years old. ETT placement TECHNIQUE: AP COMPARISON: Earlier today FINDINGS: Endotracheal tube has been retracted with tip now terminating 2.7 cm above the margarita. Esophagogastric tube is stable. Left arm PICC is stable. Patchy interstitial and groundglass opacities are overall stable. There is no demonstrated pleural abnormality. Normal size heart. Normal mediastinum and rebeca. Normal visualized pulmonary arteries. Normal visualized aortic arch and descending thoracic aorta. No acute bony process. There is no demonstrated abnormality of the visualized soft tissue structures of the upper abdomen. RAD/Chest 1 View (Portable) IMPRESSION: Satisfactory position of endotracheal and esophagogastric tubes. Multilobar pneumonia or edema, stable. Electronically Signed: Scott Zhou MD ([place]) at 11:26 EST ,
[2021-07-06 12:04] LABS: CPK Total, Creatine Kinase 25 U/L (26-192); Triglycerides 359 mg/dL
--- NOTE | 2021-07-06 12:28 | PCM.PN.ID ---
Physical Exam Narrative Now intubated, no fever Const no apparent distress Resp Effort and Inspection: mechanically ventilated Auscultation: diminished lung sounds Cardio regular rate and regular rhythm GI soft to palpation and non-distended Skin no rashes or lesions noted ID ID: Route of nutrition/ use of supplements: [] Nutritional Intake: [] IV Site: [] Richardson Catheter: [] Assessment & Plan Assessment/Plan (1) CKD (chronic kidney disease) stage 3, GFR 30-59 ml/min: (2) Liver transplant recipient: (3) Hypoxia: (4) COVID-19: PLAN: Sick for approximately 3 weeks prior to admit. Covid vaccine x3. Also flu B Ag (+). On cellcept, tacro, pred, bactrim at home with h/o liver transplant. Not candidate for baricitinib due to liver transplant. On dex here and completed empiric course of cefepime. Ucx with ecoli, 80-100k. Completed 5 days of tamiflu for flu coverage. Pulm following, now intubated. Will follow (5) Influenza B:
[2021-07-06 12:40] LABS: Allen Test Positive; Base Excess -9 mmol/L (-2 to +2); Bicarbonate 16.5 mmol/L (22-26); Blood Gas Specimen Type ART; FI02 100; Mode AC; O2 Delivery Device Adult Vent; PEEP 10; PO2 138 mmHG (75-100); RR 12; SITE R Radial; SO2 99 % (95-99); Total Carbon Dioxide 17 mmol/L; Vt 450; pCO2 30.4 mmHg (35-45); pH 7.34 (7.35-7.45)
--- NOTE | 2021-07-06 14:07 | PCM.OP.PRO ---
Procedure Report Date of Procedure: 07/06/21 Intubation Indication: Acute hypoxic respiratory failure secondary to COVID-19 Consent was obtained from: Patient The patient was placed in the appropriate sniffing position. The patient had continuous cardiac as well as pulse oximetry monitoring during the procedure. Procedure sedation was provided by the administration of etomidate 20 mg. Direct laryngoscopy was then performed using a number 3 glide scope blade, which revealed a grade 2 view. A 7.5 mm endotracheal tube was visualized advancing between the cords to the level of 23 cm at the lip. The stylette was then removed and discarded. Tube placement was confirmed by fogging in the tube along with equal and bilateral breath sounds. Colorimetric change was visualized on the CO2 meter. The cuff was then inflated and the tube secured using a commercially available device. A good pulse oximetry waveform was seen on the monitor throughout the procedure. A portable chest x-ray has been ordered to confirm appropriate placement. The patient tolerated the procedure well. Procedures Hospitalists Procedures: 11028 Insert Emergency Airway
--- NOTE | 2021-07-06 14:12 | PN.HOSP_ITS ---
Subjective Subjective Patient was requiring continuous BiPAP for the past 48 hours with marginal oxygen saturations and therefore the decision to intubate was made. Consent was obtained from the patient and she was able to talk to her family prior to intubation. Objective Data Objective Data Vital Signs: Vital Signs Temp Pulse Resp BP Pulse Ox 98.9 F 85 31 H 146/73 H 94 07/06/21 13:00 07/06/21 13:00 07/06/21 13:00 07/06/21 13:00 07/06/21 13:00 Oxygen Flow Rate (L/min) [ 3 AMBULATING with Oxygen #1] Oxygen Flow Rate (L/min) 60 Oxygen Delivery Method Mechanical Ventilator Weight: 99.4 kg Body Mass Index (BMI) 40.8 Intake & Output: Intake and Output for Last 24 Hours 07/04/21 07/05/21 07/06/21 23:59 23:59 23:59 Intake Total 400 / 640 765 / 773 210.13 / 210.13 Output Total 2000 / 2150 600 / 600 Balance 400 / 640 -1235 / -1377 -389.87 / -389.87 Lab / Micro Data Result Diagrams: 07/06/21 05:30 07/06/21 05:30 Labs: Laboratory Results - last 24 hr 07/06/21 05:30: WBC 9.9, RBC 4.89, Hgb 13.0, Hct 41.8, MCV 85.5, MCH 26.6 L, MCHC 31.1 L, RDW Std Deviation 43.4, RDW Coeff of Tyrell 13.9, Plt Count 179, MPV 10.0, Immature Gran % (Auto) 2.400 H, Neut % (Auto) 87.3 H, Lymph % (Auto) 3.7 L , [place] % (Auto) 6.4, Eos % (Auto) 0.0, Baso % (Auto) 0.2, Absolute Neuts (auto) 8.6 H, Absolute Lymphs (auto) 0.37 L, Nucleated RBC % 0 07/06/21 05:30: Sodium 141, Potassium 4.4, Chloride 113 H, Carbon Dioxide 20.0 L , Anion Gap 8, BUN 70 H, Creatinine 1.40 H, Estim Creat Clear Calc 34.02, Est GFR (MDRD) Af Amer 49 L, Est GFR (MDRD) Non-Af 40 L, BUN/Creatinine Ratio 50.0 H , Glucose 101, Calcium 9.3, Total Bilirubin 0.50, AST 22, ALT 15, Alkaline Phosphatase 120 H, Total Protein 7.0, Albumin 2.5 L, Globulin 4.5 H, Albumin/ Globulin Ratio 0.6 L 07/06/21 09:45: Total Creatine Kinase 25 L, Triglycerides 359 H Micro: Microbiology 06/28/21 12:01 Blood Culture (Wb) - Right Hand Blood Culture - Final No growth in 5 days. 06/28/21 11:52 Blood Culture (Wb) - Left Hand Blood Culture - Final No growth in 5 days. 06/26/21 20:35 Urine, Clean Catch Streptococcus pneumoniae Antigen (M - Final 06/26/21 20:35 Urine, Clean Catch Legionella Antigen - Final 06/28/21 16:50 Mucosa - Nasopharyngeal Influenza Types A,B Direct FA (ROSEMARIE) - Final Influenzae B 06/26/21 20:35 Urine, Clean Catch Urine Culture - Final Escherichia coli ABG Data ABG results: ABG 07/06/21 12:32 Specimen Type ART Sample Site R Radial pH 7.34 L Bicarbonate Actual 16.5 L Total CO2 17 Base Excess -9 L O2 Saturation 99 O2 % 100 ABG pCO2 30.4 L ABG pO2 138 H Edgar Test Positive Respiration Rate 12 O2 Delivery Device Adult Vent Vent Mode AC Tidal Volume 450 POC PEEP 10 Radiography Diagnostic Testing: Radiology Impression Chest X-Ray 07/06/21 10:55 IMPRESSION: 1. Right mainstem bronchial intubation. Follow-up x-ray demonstrating endotracheal tube retraction and satisfactory placement already performed at time of dictation. Electronically Signed: Scott Zhou MD (Bro[place]) at 11:28 EST , Chest X-Ray 07/06/21 11:09 IMPRESSION: Satisfactory position of endotracheal and esophagogastric tubes. Multilobar pneumonia or edema, stable. Electronically Signed: Scott Zhou MD (Brooks) at 11:26 EST , Physical Exam Const alert and oriented x3 Constitutional Narrative: obese white female lying in bed who was alert and oriented and in moderate respiratory distress on BiPAP continuously with marked tachypnea Exam Limitations: no limitations Nutritional Appearance: obese HEENT head/scalp atraumatic HEENT Narrative: Oropharynx was very dry with some oozing in the posterior oropharynx and dried lobulated mucus noted upon intubation over the area of the vocal cords, patient is edentulous Head and Scalp: normocephalic Eyes PERRL, EOMs intact bilaterally and conjunctivae normal Eyes Narrative: No scleral icterus Resp Resp Narrative: Tachypneic, diffusely diminished with few crackles at bilateral bases, moderate respiratory extremis Auscultation: crackles; Negative for rhonchi or wheezes Cardio regular rate, regular rhythm, S1 normal heart sound, S2 normal heart sound, no murmurs, no rub, no gallops, no clicks and no JVD GI normal to inspection, nondistended, normoactive bowel sounds, soft to palpation, non-tender and non-distended Extremity normal to inspection and no clubbing, cyanosis or edema Peripheral Pulses: Yes pulses 2+ throughout Neuro oriented x3, moves all extremities and no focal motor deficits Neuro Narrative: This exam was done prior to intubation Sensorium / Orientation: awake and alert Speech: speech normal Psych Psych Narrative: Patient is tearful and appears scared Assessment & Plan Assessment/Plan (1) Acute respiratory failure with hypoxia: (2) Influenza B: (3) COVID-19: PLAN: Acute hypoxic respiratory failure secondary to influenza B and COVID-19 -Patient required intubation on 07/06/2021 -Had been on BiPAP for 48 continuous straight hours with worsening oxygenation -Had been sick for approximately 3 weeks prior to admission -Was vaccinated and boosted however was immunocompromised with CellCept, tacrolimus, and prednisone -Not a baricitinib candidate secondary to liver transplant -Decadron day 9 -Tamiflu completed -Empiric antibiotics completed -Continue prophylactic Lovenox -Lasix as renal function and hemodynamics allow maintain euvolemia -Pulmonary medicine following-appreciate input -ID following-appreciate input Mild renal insufficiency -Current serum creatinine is 1.4 -Baseline serum creatinine appears to be 1.2-1.4 -Avoid nephrotoxins as able -CK was within normal limits -Monitor -May need to obtain tacrolimus level if renal function worsens Autoimmune hepatitis status post liver transplant -Patient remains on outpatient immunosuppression except for CellCept which is on hold per clinical transplant coordinator recommendations -Will need outpatient follow-up if patient survives acute hospitalization -Continue home rifaximin via OG -Continue home Bactrim for PCP prophylaxis via OG -Continue home ursodiol History of asthma -As per above Hypothyroidism -Patient is typically on 88 mcg of levothyroxine daily -We will dose 44 mcg weekly or 88 mcg via her PEG if able GERD -Start IV Protonix 40 mg daily Hyperlipidemia -Continue home statin Obesity -BMI is 38.8 -Complicates treatment, prognosis, outcomes, -Recommend weight loss DVT prophylaxis -Continue Lovenox 40 mg subcu twice daily CODE STATUS -Full code as per discussion by the intensivists with the patient prior to intubation Charges/Coding Visit Charges Inpatient E&M: 16548 Subs Hosp L2
[2021-07-06] MEDS: Vital AF 1.2 Cal Liquid 1,000 ML 60 ML GT (14:26)
[2021-07-06] MEDS: Chlorhexidine 15 ML PO ×2 (16:20→20:13)
[2021-07-06] MEDS: Alteplase 2 MG/2 ML Vial IV (17:14)
[2021-07-06] MEDS: Propofol 10MG/Ml 1,000 MG/100 ML Bottle 17.9 MG CONT INF ×2 (17:16→22:48)
[2021-07-06] MEDS: Atorvastatin Calcium 10 MG Tablet PO (20:13)
[2021-07-07] VITALS (37 sets, daily range): BP systolic 92–153; BP diastolic 54–83; PULSE 20–104; RESP 11–24; TEMP 36.8–37.6; O2SAT 71–97
[2021-07-07] MEDS: Propofol 10MG/Ml 1,000 MG/100 ML Bottle 17.9 MG CONT INF (00:50)
[2021-07-07 03:47] LABS: Absolute Lymphocyte Count 0.45 X10^3/uL (0.83-4.51); Absolute Neutrophil Count 8.2 X10^3/uL (2.0-7.7); Basophil# 0.03 X10^3/uL; Basophil% 0.3 % (0-1); Hematocrit 39.8 % (37-47); Lymphocyte # 0.45 X10^3/ul (0.83-4.51); Lymphocyte % 4.7 % (19-41); Mean Corp Hgb Conc 32.7 g/dL (32-36); Mean Corpuscular Hgb 28.3 pg (27.0-32.0); Mean Corpuscular Volume 86.5 fL (81-99); Monocyte% 6.2 % (0-10); NRBC Flagged by Analyzer 0 % (0-5); Neutrophil # 8.23 X10^3/uL (2.7-7.7); Neutrophil % 85.6 % (47-70); POSITIVE DIFFERENTIAL YES; Platelet Count 165 K/mm3 (150-450); RBC Distribution Width SD 44.5 fl (35.1-43.9); White Blood Count 9.6 K/mm3 (4.4-11.0)
[2021-07-07 03:58] LABS: Differential Indicated SCAN CRITERIA MET
[2021-07-07 04:23] LABS: ALB/GLOB Ratio 0.6 RATIO (0.9-2.4); AST(SGOT) 20 U/L (15-37); Alanine Aminotransfer ALT/SGPT 13 U/L (13-56); Albumin, Serum 2.4 g/dL (3.2-5.0); Alkaline Phosphatase 113 U/L (45-117); Anion Gap 9 (5-15); BUN 87 mg/dL (7-18); BUN/Creat Ratio 35.4 RATIO (10-20); Calcium,Total 8.6 mg/dL (8.5-10.1); Chloride 109 mmol/L (98-107); Creatinine, Serum 2.46 mg/dL (0.55-1.02); EST Glomerular Filtration Rate 21 mL/min (>60); Est Glom Filt Rate - Afr Amer 26 mL/min (>60); Estimated Creatinine Clearance 19.36 ml/min; Globulin 4.3 g/dL (2.2-4.2); Glucose 143 mg/dL (74-106); Potassium 5.3 mmol/L (3.5-5.1); Protein, Total 6.7 g/dL (6.4-8.2); Sodium Level 136 mmol/L (136-145)
[2021-07-07 04:39] LABS: Differential Comment SCANNED
[2021-07-07] MEDS: Propofol 10MG/Ml 1,000 MG/100 ML Bottle 21.2 MG CONT INF ×3 (05:41→15:36)
--- NOTE | 2021-07-07 06:34 | US_ITS ---
STUDY: RENAL ULTRASOUND - COMPLETE REASON FOR EXAM: Female, 61 years old. Renal failure TECHNIQUE: Ultrasound evaluation of the kidneys was performed with real-time and static avila-scale imaging. COMPARISON: None. FINDINGS: RIGHT KIDNEY: Normal location of the right kidney, which is normal in size. The right kidney measures 9.3 cm x 4.6 x 4.4 cm. There is diffuse thinning of the renal cortex. The renal cortex measures 1 cm. There is no right renal mass or cyst. There are no right renal calculi. There is no right hydronephrosis. DISTAL RIGHT URETER: There is non-visualization of the distal right ureter. There is no demonstrated right ureterovesical junction calculus. There is no demonstrated right ureteral jet. LEFT KIDNEY: Normal location of the left kidney, which is normal in size. The left kidney measures 9.4 cm x 3.5 cm x 3.7 cm. There is diffuse thinning of the renal cortex. The renal cortex measures 0.9 cm. There is no left renal mass or cyst. There are no left renal calculi. There is no left hydronephrosis. DISTAL LEFT URETER: There is non-visualization of the distal left ureter. There is no demonstrated left ureterovesical junction calculus. There is no demonstrated left ureteral jet. BLADDER: A HAQUE catheter is seen within the empty bladder. US/Kidney and Bladder IMPRESSION: Mild parenchymal renal cortical thinning. Electronically Signed: Cachorro Fox MD at 11:12 EST ,
--- NOTE | 2021-07-07 06:36 | PCM.PN.INT ---
Assessment & Plan Assessment/Plan (1) COVID-19: (2) Influenza B: PLAN: RECOMMENDATIONS: 1. Continue mechanical ventilation and wean FiO2 for saturations greater than 90%. 2. Await sputum culture given recent intubation. No antibiotics for now 3. Continue Decadron to complete 10-day treatment course. 4. Continue prophylactic Lovenox. 5. Challenge with diuretics as necessary to maintain euvolemia 6. Consult nephrology. Initial work-up ordered. IMPRESSIONS: 1. Acute hypoxemic respiratory failure secondary to COVID-19/influenza B The patient was initially admitted to the hospital on June 27 and subsequently tested positive for both COVID-19 and influenza. The patient is vaccinated at her baseline. However, she is immunosuppressed due to a history of a liver transplant. Her oxygenation status has worsened over the course of her hospitalization. Patient subsequently agreed to intubation on 07/06/2021. She has completed her treatment course of Tamiflu. It is reasonable to continue Decadron and prophylactic Lovenox. Patient is currently afebrile, without leukocytosis or fever. Sputum culture given recent intubation currently pending. Monitor off antibiotics. Wean FiO2 for oxygen saturations greater than 90%. Will hold on diuresis today. 2. Acute kidney injury Significantly worsened. Likely prerenal in etiology in the setting of her acute presentation. Will need to monitor volume status closely. Continue to monitor urine output. Patient does have some hyperkalemia. Will consult nephrology. Preliminary work-up has been ordered. 3. Chronic baseline immunosuppressed state secondary to liver transplantation Continue baseline outpatient immunosuppressive regimen. Hold CellCept, per metal control coordinator recommendations. 4. Morbid obesity/asthma/hypothyroidism/hyperlipidemia/GERD Complicates care, management, recovery and prognosis. Continue home medications as indicated. TIME: 35 minutes of critical care time was spent addressing the patient's acute hypoxemic respiratory failure secondary to combined COVID-19 and influenza B, acute kidney injury, review of all data and collaboration with the care team. Subjective Subjective Patient intubated yesterday. Patient has been doing okay on 65% FiO2 and 10 of PEEP. Patient does open her eyes to voice, but is unable to answer any questions. Spontaneous movement of all extremities noted. Nursing has reported decreased urine output. No significant oral secretions reported. Objective Data Objective Data Vital Signs: Vital Signs Temp Pulse Resp BP Pulse Ox 36.8 C 82 18 153/79 H 90 07/07/21 06:00 07/07/21 06:00 07/07/21 06:00 07/07/21 06:00 07/07/21 06:00 Oxygen Flow Rate (L/min) [ 3 AMBULATING with Oxygen #1] Oxygen Flow Rate (L/min) 60 Oxygen Delivery Method Mechanical Ventilator Weight: 100.8 kg Body Mass Index (BMI) 40.8 Intake & Output: Intake and Output for Last 24 Hours 07/05/21 07/06/21 07/07/21 23:59 23:59 23:59 Intake Total 765 / 773 915.79 / 948.69 337.95 / 337.95 Output Total 1999 / 2149 700 / 775 150 / 150 Balance -1235 / -1377 215.79 / 173.69 187.95 / 187.95 Lab / Micro Data Result Diagrams: 07/07/21 03:40 07/07/21 03:40 Labs: Laboratory Results - last 24 hr 07/06/21 09:45: Total Creatine Kinase 25 L, Triglycerides 359 H 07/07/21 03:40: WBC 9.6, RBC 4.60, Hgb 13.0, Hct 39.8, MCV 86.5, MCH 28.3, MCHC 32.7 D, RDW Std Deviation 44.5 H, RDW Coeff of Tyrell 14.0, Plt Count 165, MPV 10.0, Immature Gran % (Auto) 3.200 H, Neut % (Auto) 85.6 H, Lymph % (Auto) 4.7 L, [place] % (Auto) 6.2, Eos % (Auto) 0.0, Baso % (Auto) 0.3, Absolute Neuts (auto) 8.2 H, Absolute Lymphs (auto) 0.45 L, Nucleated RBC % 0, Differential Comment SCANNED 07/07/21 03:40: Sodium 136, Potassium 5.3 H, Chloride 109 H, Carbon Dioxide 18.0 L, Anion Gap 9, BUN 87 H, Creatinine 2.46 H, Estim Creat Clear Calc 19.36, Est GFR (MDRD) Af Amer 26 L, Est GFR (MDRD) Non-Af 21 L, BUN/Creatinine Ratio 35.4 H, Glucose 143 H, Calcium 8.6, Total Bilirubin 0.30, AST 20, ALT 13, Alkaline Phosphatase 113, Total Protein 6.7, Albumin 2.4 L, Globulin 4.3 H, Albumin/Globulin Ratio 0.6 L Micro: Microbiology 06/28/21 12:01 Blood Culture (Wb) - Right Hand Blood Culture - Final No growth in 5 days. 06/28/21 11:52 Blood Culture (Wb) - Left Hand Blood Culture - Final No growth in 5 days. 06/26/21 20:35 Urine, Clean Catch Streptococcus pneumoniae Antigen (M - Final 06/26/21 20:35 Urine, Clean Catch Legionella Antigen - Final 06/28/21 16:50 Mucosa - Nasopharyngeal Influenza Types A,B Direct FA (ROSEMARIE) - Final Influenzae B 06/26/21 20:35 Urine, Clean Catch Urine Culture - Final Escherichia coli ABG Data ABG results: ABG 07/06/21 12:32 Specimen Type ART Sample Site R Radial pH 7.34 L Bicarbonate Actual 16.5 L Total CO2 17 Base Excess -9 L O2 Saturation 99 O2 % 100 ABG pCO2 30.4 L ABG pO2 138 H Edgar Test Positive Respiration Rate 12 O2 Delivery Device Adult Vent Vent Mode AC Tidal Volume 450 POC PEEP 10 Radiography Diagnostic Testing: Radiology Impression Chest X-Ray 07/06/21 10:55 IMPRESSION: 1. Right mainstem bronchial intubation. Follow-up x-ray demonstrating endotracheal tube retraction and satisfactory placement already performed at time of dictation. Electronically Signed: Scott Zhou MD (Bro[place]) at 11:28 EST Reading Location ID and State: / [place] , Service support , Chest X-Ray 07/06/21 11:09 IMPRESSION: Satisfactory position of endotracheal and esophagogastric tubes. Multilobar pneumonia or edema, stable. Electronically Signed: Scott Zhou MD (Brooks) at 11:26 EST , Physical Exam Const Constitutional Narrative: RASS -2 General Appearance: cooperative, ill appearing, intubated and patient mechanically ventilated Nutritional Appearance: morbidly obese HEENT normocephalic and head/scalp atraumatic Mouth: endotracheal tube in place and OG tube in place Eyes PERRL, EOMs intact bilaterally and conjunctivae normal Neck supple General: trachea midline Chest inspection of chest normal Chest: symmetrical chest wall rise; Negative for crepitus Resp Effort and Inspection: tachypneic Auscultation: diminished lung sounds; Negative for rales, rhonchi or wheezes Cardio regular rate and regular rhythm GI normal to inspection, nondistended, normoactive bowel sounds Extremity no clubbing, cyanosis or edema Skin no rashes or lesions noted Neuro CN's II-XII intact bilaterally, moves all extremities and no focal motor deficits Psych Mood & Affect: anxious Charges/Coding Procedures Hospitalists Procedures: 66706 Critial Care 1st Hr
[2021-07-07] MEDS: dexAMETHasone 10 MG/ML Vial 6 MG IV (08:08)
[2021-07-07] MEDS: Enoxaparin 40 MG/0.4 ML Syringe SC ×2 (08:09→20:52)
[2021-07-07] MEDS: Chlorhexidine 15 ML PO ×2 (08:11→21:04)
[2021-07-07 09:20] LABS: Urea Nitrogen, Urine 532 mg/dL (NO RANGE EST.); Urine Sodium 11 mmol/L (Not Establ.)
[2021-07-07] MEDS: Aspirin E.C. 81 MG Tablet PO (10:31)
[2021-07-07] MEDS: Levothyroxine 88 MCG Tablet PO (10:32)
[2021-07-07] MEDS: guaiFENesin 1,200 MG Tablet 1200 MG PO (10:32)
[2021-07-07] MEDS: rifAXIMin 550 MG Tablet PO ×2 (10:32→20:54)
[2021-07-07] MEDS: Calcium (Elemental) 500 MG Tablet PO ×2 (10:32→20:54)
[2021-07-07] MEDS: Cholecalciferol (VIT D3) 25 MCG TABLET (1,000 UNITS) 50 MCG PO (10:32)
[2021-07-07] MEDS: Tacrolimus 0.5 MG Capsule PO ×2 (10:32→20:53)
[2021-07-07] MEDS: Ursodiol 250 MG Tablet PO ×2 (10:32→20:53)
[2021-07-07] MEDS: Tacrolimus Anhydrous 1 MG Capsule 2 MG PO ×2 (10:32→20:53)
[2021-07-07] MEDS: Ascorbic Acid 500 MG Tablet PO ×3 (10:32→20:53)
--- NOTE | 2021-07-07 11:00 | RAD_ITS ---
STUDY: X-RAY CHEST REASON FOR EXAM: Female, 61 years old. Possible Pneumothorax TECHNIQUE: Single AP portable view of the chest. COMPARISON: Comparison is made with prior study dated 07/06/2021. FINDINGS: An endotracheal tube is in situ. The tip is at the level of the margarita. This should be pulled back approximately 2 cm. A nasogastric tube is seen with the tip in the body of the stomach. A left-sided PICC line catheter is seen with the tip at the junction of the superior vena cava and right atrium. EKG electrodes are seen. Stable bilateral pulmonary infiltrates. There is no demonstrated pleural abnormality. Normal size heart. Normal mediastinum and rebeca. Normal visualized pulmonary arteries. There is atherosclerotic calcification of the aortic arch with tortuosity. Normal visualized thoracic spine. Normal visualized ribs, clavicles, and shoulders. There is no demonstrated abnormality of the visualized soft tissue structures of the upper abdomen. RAD/Chest 1 View (Portable) IMPRESSION: The tip of the endotracheal tube is at the level of the margarita. It should be pulled back approximately 2 cm. The remainder the examination is unchanged. There is no evidence of pneumothorax. Electronically Signed: Cachorro Fox MD at 11:20 EST ,
--- NOTE | 2021-07-07 11:31 | CON.PCM.RE_ITS ---
Assessment & Plan Assessment/Plan (1) OPAL (acute kidney injury): PLAN: Creatinine was close to baseline at 1.4 up until yesterday. Increased to 2.4 today. She did get some doses of Lasix prior. Most likely acute renal failure due to hemodynamic changes yesterday. Currently blood pressure is acceptable. No pressors required. Richardson catheter indwelling with minimal urine output. Renal ultrasound images reviewed, no obvious hydronephrosis. Final read pending. Will check urine sodium. She is on fairly high amount of oxygen. No room for IV fluids. (2) Chronic kidney disease, stage 3a: (3) Immunosuppressed status: PLAN: On tacrolimus, CellCept, prednisone. CellCept is on hold as per transplant team recs. Currently tacrolimus is going through the G-tube. Levels have been ordered on the and are pending. Currently on Decadron instead of prednisone. Send a repeat tacrolimus level tomorrow There is no beds available in tertiary care centers. Hence stayed back here despite transplant status HPI Consult Data Date of Consult: 07/07/21 HPI Narrative HPI Narrative: CHELI FITCH, is a 61 F who presents to the hospital with Covid pneumonia. Nephrology consulted for acute renal failure. Patient has known history of orthotopic liver transplant due to autoimmune hepatitis. On immunosuppression with 3 drug regimen including tacrolimus, CellCept, prednisone. Has been sick with Covid symptoms for more than 3 weeks now. Came into the hospital few days ago, yesterday evening decompensated and was in tubated. Chest x-ray consistent with ARDS from Covid pneumonia. Patient did receive few doses of Lasix prior to intubation yesterday. History of CKD stage IIIa with baseline creatinine around 1.3-1.4. Creatinine was close to baseline up until yesterday. Increased to 2.4 today. Currently has a Richardson catheter indwelling, minimal urine output. Renal ultrasound has been ordered and is pending. Patient is currently intubated. [facility] Medical History (Updated 07/07/21 @ 11:[address] Celina Benson MD) Former smoker Hypothyroidism Kidney disease Migraines Osteoporosis Home Medications albuterol sulfate [Ventolin HFA] 2 puff INHALATION Q6H PRN PRN 06/21/16 [History Last Taken Unknown] azathioprine 50 mg PO DAILY@0800 06/21/16 [History Last Taken 10/03/17] calcium-vitamin D3-vitamin K [Citracal-D3 Soft Chew] 1 ea PO DAILY 06/21/16 [History Last Taken 10/03/17] cyanocobalamin (vitamin B-12) [Vitamin B-12] 50,000 mcg PO MOORE 06/21/16 [History Last Taken 10/02/17] ondansetron 8 mg PO Q8H PRN PRN 06/21/16 [History Last Taken 07/12/17] pantoprazole 40 mg PO DAILY 06/21/16 [History Last Taken 10/03/17] zinc 50 mg PO DAILY 06/21/16 [History Last Taken 10/03/17] melatonin 3 mg PO QHS 09/04/16 [History Last Taken 10/02/17] furosemide 20 mg PO QODAY 11/02/16 [History Last Taken 10/02/17] tramadol 50 mg PO BID PRN PRN 02/14/17 [History Last Taken 10/03/17] ascorbic acid (vitamin C) [Vitamin C] 500 mg PO BIDCM 07/12/17 [History Last Taken 07/11/17] ferrous gluconate 325 mg PO BIDCM 07/12/17 [History Last Taken 10/03/17] Xifaxan 550 mg PO BID 10/04/17 [History Last Taken 10/03/17] calcium carbonate 500 mg PO BID 10/04/17 [History Last Taken Unknown] cholecalciferol (vitamin D3) [Vitamin D3] 2,000 unit PO DAILY 10/04/17 [History Last Taken 10/03/17] lactulose 60 ml PO BID #0 10/07/17 [Rx Last Taken 10/02/17] aspirin 81 mg PO DAILY 08/19/19 [History Last Taken Unknown] mycophenolate mofetil 250 mg PO BID 08/19/19 [History Last Taken Unknown] ondansetron 4 mg PO Q8H PRN PRN #7 tab 08/19/19 [Rx Last Taken Unknown] prednisone 5 mg PO DAILY 08/19/19 [History Last Taken Unknown] simvastatin 20 mg PO QHS 08/19/19 [History Last Taken Unknown] sulfamethoxazole-trimethoprim 1 ea PO MOWEFR 08/19/19 [History Last Taken Unknown] tacrolimus 0.5 mg PO Q12H 03/15/20 [History Last Taken Unknown] tacrolimus 2 mg PO Q12H 08/19/19 [History Last Taken Unknown] ursodiol 250 mg PO BID 08/19/19 [History Last Taken Unknown] levothyroxine 88 mcg PO DAILY 06/26/21 [History Last Taken Unknown] nitrofurantoin monohyd/m-cryst 100 mg PO Q12 #14 capsule 06/26/21 [Rx Last Taken Unknown] potassium chloride 10 meq PO QODAY 07/03/21 [History Last Taken Unknown] Allergy/AdvReac Type Severity Reaction Status Date / Time amoxicillin Allergy Hives Verified 06/26/21 19:28 Fish Containing Products Allergy Rash Verified 06/26/21 19:28 Iodinated Contrast Media Allergy Rash Verified 06/26/21 19:28 [Iodinated Contrast Media - IV Dye] Penicillins [PCN] Allergy Hives Verified 06/26/21 19:28 Family History Other Cancer Diabetes Heart disease Surgical History (Updated 06/30/21 @ 10:[address] Demarcus Huddleston MD) History of herniorrhaphy Liver transplant recipient Social History Smoking Status: Former smoker ROS Review of Systems ROS Unobtainable: due to endotracheal tube Physical Exam Narrative Minimal exam due to Covid pneumonia Intubated Sedated Richardson catheter No significant edema No cyanosis Lab / Micro Data Result Diagrams: 07/07/21 03:40 07/07/21 03:40 Labs: Laboratory Results - last 24 hr 07/06/21 09:45: Total Creatine Kinase 25 L, Triglycerides 359 H 07/07/21 03:40: WBC 9.6, RBC 4.60, Hgb 13.0, Hct 39.8, MCV 86.5, MCH 28.3, MCHC 32.7 D, RDW Std Deviation 44.5 H, RDW Coeff of Tyrell 14.0, Plt Count 165, MPV 10. 0, Immature Gran % (Auto) 3.200 H, Neut % (Auto) 85.6 H, Lymph % (Auto) 4.7 L, [place] % (Auto) 6.2, Eos % (Auto) 0.0, Baso % (Auto) 0.3, Absolute Neuts (auto) 8.2 H, Absolute Lymphs (auto) 0.45 L, Nucleated RBC % 0, Differential Comment SCANNED 07/07/21 03:40: Sodium 136, Potassium 5.3 H, Chloride 109 H, Carbon Dioxide 18.0 L, Anion Gap 9, BUN 87 H, Creatinine 2.46 H, Estim Creat Clear Calc 19.36, Est GFR (MDRD) Af Amer 26 L, Est GFR (MDRD) Non-Af 21 L, BUN/Creatinine Ratio 35.4 H , Glucose 143 H, Calcium 8.6, Total Bilirubin 0.30, AST 20, ALT 13, Alkaline Phosphatase 113, Total Protein 6.7, Albumin 2.4 L, Globulin 4.3 H, Albumin/Globulin Ratio 0.6 L 07/07/21 08:50: Ur Random Sodium 11, Urine Creatinine 180.00, Urine Urea Nitrogen 532 Micro: Microbiology 07/06/21 11:20 Sputum, Induced/[place]ukens Gram Stain - Final 07/06/21 11:20 Sputum, Induced/[place]ens Respiratory Culture - Preliminary Culture exhibits no growth. ABG Data ABG results: ABG 07/06/21 12:32 Specimen Type ART Sample Site R Radial pH 7.34 L Bicarbonate Actual 16.5 L Total CO2 17 Base Excess -9 L O2 Saturation 99 O2 % 100 ABG pCO2 30.4 L ABG pO2 138 H Edgar Test Positive Respiration Rate 12 O2 Delivery Device Adult Vent Vent Mode AC Tidal Volume 450 POC PEEP 10 Radiology Impression Renal Ultrasound 07/07/21 06:34 IMPRESSION: Mild parenchymal renal cortical thinning. Electronically Signed: Cachorro Fox MD at 11:12 EST , Chest X-Ray 07/07/21 11:00 IMPRESSION: The tip of the endotracheal tube is at the level of the margarita. It should be pulled back approximately 2 cm. The remainder the examination is unchanged. There is no evidence of pneumothorax. Electronically Signed: Cachorro Fox MD at 11:20 EST ,
--- NOTE | 2021-07-07 11:53 | NURSING ---
chest x-ray reviewed per Dr Emerson increased peep to12
[2021-07-07] MEDS: Vital AF 1.2 Cal Liquid 1,000 ML 60 ML GT (13:19)
--- NOTE | 2021-07-07 13:39 | PCM.PN.HOSP ---
Subjective Subjective Patient was intubated yesterday. FiO2 was reduced to as low as 65% and PEEP had been at 10 but patient with some hypoxia and PEEP was increased to 12 and FiO2 is now 100% upon my evaluation today. Objective Data Objective Data Vital Signs: Vital Signs Temp Pulse Resp BP Pulse Ox 99.6 F H 73 11 L 98/54 L 96 07/07/21 12:00 07/07/21 12:00 07/07/21 12:00 07/07/21 12:00 07/07/21 12:00 Oxygen Flow Rate (L/min) [ 3 AMBULATING with Oxygen #1] Oxygen Flow Rate (L/min) 60 Oxygen Delivery Method Mechanical Ventilator Weight: 100.8 kg Body Mass Index (BMI) 40.8 Intake & Output: Intake and Output for Last 24 Hours 07/05/21 07/06/21 07/07/21 23:59 23:59 23:59 Intake Total 765 / 773 915.79 / 948.69 684.98 / 684.98 Output Total 1999 / 0 700 / 775 250 / 250 Balance -1235 / -1377 215.79 / 173.69 434.98 / 434.98 Lab / Micro Data Result Diagrams: 07/07/21 03:40 07/07/21 03:40 Labs: Laboratory Results - last 24 hr 07/07/21 03:40: WBC 9.6, RBC 4.60, Hgb 13.0, Hct 39.8, MCV 86.5, MCH 28.3, MCHC 32.7 D, RDW Std Deviation 44.5 H, RDW Coeff of Tyrell 14.0, Plt Count 165, MPV 10.0, Immature Gran % (Auto) 3.200 H, Neut % (Auto) 85.6 H, Lymph % (Auto) 4.7 L, [place] % (Auto) 6.2, Eos % (Auto) 0.0, Baso % (Auto) 0.3, Absolute Neuts (auto) 8.2 H, Absolute Lymphs (auto) 0.45 L, Nucleated RBC % 0, Differential Comment SCANNED 07/07/21 03:40: Sodium 136, Potassium 5.3 H, Chloride 109 H, Carbon Dioxide 18.0 L, Anion Gap 9, BUN 87 H, Creatinine 2.46 H, Estim Creat Clear Calc 19.36, Est GFR (MDRD) Af Amer 26 L, Est GFR (MDRD) Non-Af 21 L, BUN/Creatinine Ratio 35.4 H, Glucose 143 H, Calcium 8.6, Total Bilirubin 0.30, AST 20, ALT 13, Alkaline Phosphatase 113, Total Protein 6.7, Albumin 2.4 L, Globulin 4.3 H, Albumin/Globulin Ratio 0.6 L 07/07/21 08:50: Ur Random Sodium 11, Urine Creatinine 180.00, Urine Urea Nitrogen 532 07/07/21 11:30: Vancomycin Trough 14.0 Micro: Microbiology 07/06/21 11:20 Sputum, Induced/Lukens Gram Stain - Final 07/06/21 11:20 Sputum, Induced/Lukens Respiratory Culture - Preliminary Culture exhibits no growth. 06/28/21 12:01 Blood Culture (Wb) - Right Hand Blood Culture - Final No growth in 5 days. 06/28/21 11:52 Blood Culture (Wb) - Left Hand Blood Culture - Final No growth in 5 days. 06/26/21 20:35 Urine, Clean Catch Streptococcus pneumoniae Antigen (M - Final 06/26/21 20:35 Urine, Clean Catch Legionella Antigen - Final 06/28/21 16:50 Mucosa - Nasopharyngeal Influenza Types A,B Direct FA (ROSEMARIE) - Final Influenzae B 06/26/21 20:35 Urine, Clean Catch Urine Culture - Final Escherichia coli Radiography Diagnostic Testing: Radiology Impression Renal Ultrasound 07/07/21 06:34 IMPRESSION: Mild parenchymal renal cortical thinning. Electronically Signed: Cachorro Fox MD at 11:12 EST , Chest X-Ray 07/07/21 11:00 IMPRESSION: The tip of the endotracheal tube is at the level of the margarita. It should be pulled back approximately 2 cm. The remainder the examination is unchanged. There is no evidence of pneumothorax. Electronically Signed: Cachorro Fox MD at 11:20 EST , Physical Exam Const Constitutional Narrative: Obese white female lying in bed, intubated and sedated Nutritional Appearance: obese HEENT head/scalp atraumatic HEENT Narrative: ET tube in place and at 23 at the lip Head and Scalp: normocephalic Eyes Eyes Narrative: No scleral icterus Resp normal respiratory effort, no retractions, no use of accessory muscles and clear to auscultation bilaterally Resp Narrative: Diffusely diminished breath sounds but no adventitious sounds noted Auscultation: Negative for crackles, rales, rhonchi or wheezes Cardio regular rate, regular rhythm, S1 normal heart sound, S2 normal heart sound, no murmurs, no rub, no gallops, no clicks and no JVD GI normal to inspection, nondistended, normoactive bowel sounds, soft to palpation, non-tender and non-distended Extremity normal to inspection and no clubbing, cyanosis or edema Peripheral Pulses: Yes pulses 2+ throughout Neuro Neuro Narrative: Intubated and sedated Assessment & Plan Assessment/Plan (1) Acute respiratory failure with hypoxia: (2) Influenza B: (3) COVID-19: (4) OPAL (acute kidney injury): (5) Hyperkalemia: PLAN: Acute hypoxic respiratory failure secondary to influenza B and COVID-19 -Patient required intubation on 07/06/2021 -Had been on BiPAP for 48 continuous straight hours with worsening oxygenation -Intubated 07/06/2021 -Had been sick for approximately 3 weeks prior to admission -Was vaccinated and boosted however was immunocompromised with CellCept, tacrolimus, and prednisone -Not a baricitinib candidate secondary to liver transplant -Decadron day -Tamiflu completed -Empiric antibiotics completed -Continue prophylactic Lovenox -Lasix as renal function and hemodynamics allow maintain euvolemia -Pulmonary medicine following-appreciate input -ID following-appreciate input AKIOn CKD stage IIIa -Serum creatinine yesterday was 1.4 and up to 2.46 today. -Suspect related to ischemic ATN as patient Did have some transient hypotension yesterday -Baseline serum creatinine appears to be 1.2-1.4 -Urine studies ordered -Retroperitoneal ultrasound pending -Nephrology is consulted -Avoid nephrotoxins as able -CK was within normal limits -Monitor -Tacrolimus level is pending-->May need dose reduction if renal function continues to worsen Autoimmune hepatitis status post liver transplant -Patient remains on outpatient immunosuppression except for CellCept which is on hold per coordinator of genetic services recommendations -If renal function continues to worsen may need to rediscuss other immunosuppressants with coordinator of genetic services -Will need outpatient follow-up if patient survives acute hospitalization -Continue home rifaximin via OG -Continue home Bactrim for PCP prophylaxis via OG -Continue home ursodiol History of asthma -As per above Hypothyroidism -Patient is typically on 88 mcg of levothyroxine daily -We will dose 44 mcg weekly or 88 mcg via her G-tube if able GERD -Continue IV Protonix 40 mg daily Hyperlipidemia -Continue home statin Obesity -BMI is 38.8 -Complicates treatment, prognosis, outcomes, -Recommend weight loss DVT prophylaxis -Continue Lovenox 40 mg subcu twice daily CODE STATUS -Full code as per discussion by the intensivists with the patient prior to intubation -Overall prognosis is likely poor given comorbidities and current status Charges/Coding Visit Charges Inpatient E&M: 80220 Subs Hosp L2
--- NOTE | 2021-07-07 17:44 | EX.PCM.CON.G ---
HPI Consult Data Date of Consult: 07/07/21 HPI Narrative HPI Narrative: CHELI FITCH, is a 61 F who presents to the emergency room with a significant history of autoimmune hepatitis status post liver transplant and on immunosuppressive medications prednisone, CellCept and tacrolimus. She also has CKD stage IIIb; COVID-19 vaccinated with a booster who presented to the emergency department with a 3-week history of nausea and vomiting. Associated with her symptoms is diffuse abdominal pain. Further, patient has had lethargy, weakness and chills. At the emergency department patient was 91% on room air but her oxygen saturation dropped to 83% so she was placed on 3 L of nasal cannula oxygen. Patient was initially discharged from the ED however upon her oxygen taken off her oxygen saturation dropped to the 70s. Patient required 6 L of nasal cannula oxygen thereafter to maintain appropriate oxygen saturation. Chest x-ray was subsequently obtained. The chest x-ray showed bilateral infiltrates. Emergency department doctor ordered PCR COVID; and a decision was made for patient to stay at the hospital.. She eventually became positive for COVID-19 and influenza. She was started medical therapy for COVID-19 and influenza. It was decided to hold her CellCept and continue her tacrolimus. She also had her prednisone held and she was started on high-dose IV steroids to try to stop the ARDS reaction associated with concomitant pneumonia in immunosuppressed patient. It was decided to intubate her due to ongoing respiratory distress. Currently, her FiO2 and PEEP had to be increased to due to decrease in oxygen saturation and acidosis. Her kidney function has worsened and she is being seen by nephrology. All of history is obtained from the chart due to the patient being intubated and sedated. [facility] Medical History (Updated 07/07/21 @ 13:[address] Joanna Whitlock, ) Former smoker Hypothyroidism Kidney disease Migraines Osteoporosis Home Medications albuterol sulfate [Ventolin HFA] 2 puff INHALATION Q6H PRN PRN 06/21/16 [History Last Taken Unknown] azathioprine 50 mg PO DAILY@0800 06/21/16 [History Last Taken 10/03/17] calcium-vitamin D3-vitamin K [Citracal-D3 Soft Chew] 1 ea PO DAILY 06/21/16 [History Last Taken 10/03/17] cyanocobalamin (vitamin B-12) [Vitamin B-12] 50,000 mcg PO MOORE 06/21/16 [History Last Taken 10/02/17] ondansetron 8 mg PO Q8H PRN PRN 06/21/16 [History Last Taken 07/12/17] pantoprazole 40 mg PO DAILY 06/21/16 [History Last Taken 10/03/17] zinc 50 mg PO DAILY 06/21/16 [History Last Taken 10/03/17] melatonin 3 mg PO QHS 09/04/16 [History Last Taken 10/02/17] furosemide 20 mg PO QODAY 11/02/16 [History Last Taken 10/02/17] tramadol 50 mg PO BID PRN PRN 02/14/17 [History Last Taken 10/03/17] ascorbic acid (vitamin C) [Vitamin C] 500 mg PO BIDCM 07/12/17 [History Last Taken 07/11/17] ferrous gluconate 325 mg PO BIDCM 07/12/17 [History Last Taken 10/03/17] Xifaxan 550 mg PO BID 10/04/17 [History Last Taken 10/03/17] calcium carbonate 500 mg PO BID 10/04/17 [History Last Taken Unknown] cholecalciferol (vitamin D3) [Vitamin D3] 2,000 unit PO DAILY 10/04/17 [History Last Taken 10/03/17] lactulose 60 ml PO BID #0 10/07/17 [Rx Last Taken 10/02/17] aspirin 81 mg PO DAILY 08/19/19 [History Last Taken Unknown] mycophenolate mofetil 250 mg PO BID 08/19/19 [History Last Taken Unknown] ondansetron 4 mg PO Q8H PRN PRN #7 tab 08/19/19 [Rx Last Taken Unknown] prednisone 5 mg PO DAILY 08/19/19 [History Last Taken Unknown] simvastatin 20 mg PO QHS 08/19/19 [History Last Taken Unknown] sulfamethoxazole-trimethoprim 1 ea PO MOWEFR 08/19/19 [History Last Taken Unknown] tacrolimus 0.5 mg PO Q12H 08/19/19 [History Last Taken Unknown] tacrolimus 2 mg PO Q12H 08/19/19 [History Last Taken Unknown] ursodiol 250 mg PO BID 08/19/19 [History Last Taken Unknown] levothyroxine 88 mcg PO DAILY 06/26/21 [History Last Taken Unknown] nitrofurantoin monohyd/m-cryst 100 mg PO Q12 #14 capsule 06/26/21 [Rx Last Taken Unknown] potassium chloride 10 meq PO QODAY 07/03/21 [History Last Taken Unknown] Allergy/AdvReac Type Severity Reaction Status Date / Time amoxicillin Allergy Hives Verified 06/26/21 19:28 Fish Containing Products Allergy Rash Verified 06/26/21 19:28 Iodinated Contrast Media Allergy Rash Verified 06/26/21 19:28 [Iodinated Contrast Media - IV Dye] Penicillins [PCN] Allergy Hives Verified 06/26/21 19:28 Family History Other Cancer Diabetes Heart disease Surgical History (Updated 06/30/21 @ 10:[address] Demarcus Huddleston MD) History of herniorrhaphy Liver transplant recipient Social History Smoking Status: Former smoker Physical Exam Const Constitutional Narrative: Intubated and sedated HEENT hearing grossly normal bilaterally Head and Scalp: normal to inspection Face and Sinus: face symmetric Nose: external nose normal Mouth: oral and palatal mucosa normal Eyes conjunctivae normal Lymph Lymphatic: no lymphadenopathy noted Chest inspection of chest normal and palpation of chest normal Chest: symmetrical chest wall rise Cardio regular rate GI non-distended Percussion: normal to percussion Rectal Exam: deferred Lab / Micro Data Result Diagrams: 07/07/21 03:40 07/07/21 03:40 Labs: Laboratory Results - last 24 hr 07/07/21 03:40: WBC 9.6, RBC 4.60, Hgb 13.0, Hct 39.8, MCV 86.5, MCH 28.3, MCHC 32.7 D, RDW Std Deviation 44.5 H, RDW Coeff of Tyrell 14.0, Plt Count 165, MPV 10.0, Immature Gran % (Auto) 3.200 H, Neut % (Auto) 85.6 H, Lymph % (Auto) 4.7 L, [place] % (Auto) 6.2, Eos % (Auto) 0.0, Baso % (Auto) 0.3, Absolute Neuts (auto) 8.2 H, Absolute Lymphs (auto) 0.45 L, Nucleated RBC % 0, Differential Comment SCANNED 07/07/21 03:40: Sodium 136, Potassium 5.3 H, Chloride 109 H, Carbon Dioxide 18.0 L, Anion Gap 9, BUN 87 H, Creatinine 2.46 H, Estim Creat Clear Calc 19.36, Est GFR (MDRD) Af Amer 26 L, Est GFR (MDRD) Non-Af 21 L, BUN/Creatinine Ratio 35.4 H, Glucose 143 H, Calcium 8.6, Total Bilirubin 0.30, AST 20, ALT 13, Alkaline Phosphatase 113, Total Protein 6.7, Albumin 2.4 L, Globulin 4.3 H, Albumin/Globulin Ratio 0.6 L 07/07/21 08:50: Ur Random Sodium 11, Urine Creatinine 180.00, Urine Urea Nitrogen 532 07/07/21 11:30: Vancomycin Trough 14.0 Micro: Microbiology 07/06/21 11:20 Sputum, Induced/Lukens Gram Stain - Final 07/06/21 11:20 Sputum, Induced/Lukens Respiratory Culture - Preliminary Culture exhibits no growth. Radiology Impression Renal Ultrasound 07/07/21 06:34 IMPRESSION: Mild parenchymal renal cortical thinning. Electronically Signed: Cachorro Fox MD at 11:12 EST , Chest X-Ray 07/07/21 11:00 IMPRESSION: The tip of the endotracheal tube is at the level of the margarita. It should be pulled back approximately 2 cm. The remainder the examination is unchanged. There is no evidence of pneumothorax. Electronically Signed: Cachorro Fox MD at 11:20 EST , Assessment & Plan Assessment/Plan (1) Autoimmune hepatitis: PLAN: Besides supportive treatment, reduction or temporary removal of immunosuppressive agents may probably be beneficial for rehabilitation of immunity in this case influenza and COVID-19 pneumonia. The risk of acute allograft rejection after weakening immunosuppression is high but it is necessary at this time due to a severe infectious disease.. The majority of patients post LT are treated with reduced-dose calcineurin inhibitors (CNIs) in combination with mycophenolate mofetil (MMF). I do not know of any recent signs of rejection prior to her coming into the hospital. Systemic use of corticosteroid hopefully will protect her from allograft rejection owe to immunosuppressive activity. I cannot find any evidence endorsing the immunomodulatory effect of IVIg due to lack of specific antibodies against SARS-CoV-2. However I did she does have a relative lymphocytopenia that might be helpful to reduce the incidence of potential coinfections. I will discussed this with infectious disease. I would also recommend to follow her INR, PT, PTT, LDH, ammonia and LFTs to look for signs of rejection. I would also check therapeutic levels of her immunosuppression as they might need to be dose reduced due to worsening renal failure. Charges/Coding Visit Charges Inpatient E&M: 55492 Init Hosp L3
[2021-07-07] MEDS: Propofol 10MG/Ml 1,000 MG/100 ML Bottle 24.2 MG CONT INF ×2 (20:00→23:20)
[2021-07-07] MEDS: Senna/Docusate Sodium 1 Tablet PO (20:54)
[2021-07-07] MEDS: Atorvastatin Calcium 10 MG Tablet PO (20:54)
[2021-07-08] VITALS (40 sets, daily range): BP systolic 96–163; BP diastolic 58–97; PULSE 75–114; RESP 11–26; TEMP 37.1–38.2; O2SAT 83–97
[2021-07-08] MEDS: Propofol 10MG/Ml 1,000 MG/100 ML Bottle 24.2 MG CONT INF (02:00)
[2021-07-08 03:30] LABS: Absolute Lymphocyte Count 0.64 X10^3/uL (0.83-4.51); Absolute Neutrophil Count 11.8 X10^3/uL (2.0-7.7); Basophil# 0.04 X10^3/uL; Basophil% 0.3 % (0-1); Eosinophil# 0.02 X10^3/uL; Eosinophils% 0.1 % (0-5); Hematocrit 40.2 % (37-47); Lymphocyte # 0.64 X10^3/ul (0.83-4.51); Lymphocyte % 4.6 % (19-41); Mean Corp Hgb Conc 32.3 g/dL (32-36); Mean Corpuscular Hgb 28.3 pg (27.0-32.0); Mean Corpuscular Volume 87.6 fL (81-99); Mean Platelet Vol. 10.2 fl (6.2-12.0); Monocyte# 0.85 X10^3/uL; Monocyte% 6.1 % (0-10); NRBC Flagged by Analyzer 0 % (0-5); Neutrophil # 11.75 X10^3/uL (2.7-7.7); Neutrophil % 84.2 % (47-70); Platelet Count 166 K/mm3 (150-450); RBC Distribution Width CV 13.7 % (11.6-14.6); Red Blood Count 4.59 M/mm3 (4.2-5.4)
[2021-07-08 03:42] LABS: International Normalized Ratio 1.1; Prothrombin Time (Protime)PT. 13.9 SECONDS (11.7-14.9)
[2021-07-08 03:43] LABS: Partial Thromboplast Time 21.8 Seconds (24.1-36.2)
[2021-07-08 04:48] LABS: ALB/GLOB Ratio 0.6 RATIO (0.9-2.4); AST(SGOT) 19 U/L (15-37); Alanine Aminotransfer ALT/SGPT 13 U/L (13-56); Albumin, Serum 2.4 g/dL (3.2-5.0); Alkaline Phosphatase 126 U/L (45-117); Anion Gap 11 (5-15); BUN 112 mg/dL (7-18); Calcium,Total 8.2 mg/dL (8.5-10.1); Chloride 108 mmol/L (98-107); Creatinine, Serum 2.95 mg/dL (0.55-1.02); EST Glomerular Filtration Rate 17 mL/min (>60); Est Glom Filt Rate - Afr Amer 21 mL/min (>60); Estimated Creatinine Clearance 16.15 ml/min; Globulin 4.2 g/dL (2.2-4.2); Glucose 129 mg/dL (74-106); LDH 401 U/L (84-246); Protein, Total 6.6 g/dL (6.4-8.2); Sodium Level 136 mmol/L (136-145)
[2021-07-08] MEDS: Propofol 10MG/Ml 1,000 MG/100 ML Bottle 24.7 MG CONT INF ×6 (05:15→23:00)
[2021-07-08] MEDS: 0.9% Saline Lock 10 ML Syringe IV ×2 (06:30→08:07)
[2021-07-08] MEDS: TITRATION PARAMETER CHANGE 1 EACH IV (06:31)
[2021-07-08] MEDS: Vital AF 1.2 Cal Liquid 1,000 ML 60 ML GT (06:31)
--- NOTE | 2021-07-08 06:50 | PCM.PN.INT ---
Assessment & Plan Assessment/Plan (1) COVID-19: (2) Influenza B: PLAN: RECOMMENDATIONS: 1. Continue mechanical ventilation and wean FiO2 for saturations greater than 90%. 2. Await sputum culture. No antibiotics for now 3. Continue Decadron to complete 10-day treatment course. 4. Continue prophylactic Lovenox. 5. Challenge with diuretics as necessary to maintain euvolemia 6. Appreciate nephrology and GI recommendations IMPRESSIONS: 1. Acute hypoxemic respiratory failure secondary to COVID-19/influenza B The patient was initially admitted to the hospital on June 27 and subsequently tested positive for both COVID-19 and influenza. The patient is vaccinated at her baseline. However, she is immunosuppressed due to a history of a liver transplant. Her oxygenation status has worsened over the course of her hospitalization. Patient subsequently agreed to intubation on 07/06/2021. She has completed her treatment course of Tamiflu. It is reasonable to continue Decadron and prophylactic Lovenox. Patient is currently afebrile, without leukocytosis or fever. Sputum culture is showing no growth at this time. Monitor off antibiotics. Wean FiO2 for oxygen saturations greater than 90%. Will hold on diuresis today. 2. Acute kidney injury Worsened from yesterday. Likely prerenal in etiology in the setting of her acute presentation. Will need to monitor volume status closely. Continue to monitor urine output. Patient does have some hyperkalemia. Await nephrology recommendations. 3. Chronic baseline immunosuppressed state secondary to liver transplantation Continue baseline outpatient immunosuppressive regimen. GI consulted yesterday. Patient has been off of CellCept. GI recommending full removal of immunosuppression. Will clarify that the special services coordinator has been contacted. Patient will be initiated on lactulose 4. Morbid obesity/asthma/hypothyroidism/hyperlipidemia/GERD Complicates care, management, recovery and prognosis. Continue home medications as indicated. TIME: 33 minutes of critical care time was spent addressing the patient's acute hypoxemic respiratory failure secondary to combined COVID-19 and influenza B, acute kidney injury, review of all data and collaboration with the care team. Subjective Subjective Patient did okay overnight. Patient did have hypoxia yesterday requiring increase in PEEP. Oxygenation has improved since that time. Patient continues to have marginal urine output, but is tolerating tube feeds. Objective Data Objective Data Vital Signs: Vital Signs Temp Pulse Resp BP Pulse Ox 37.3 C 77 13 109/65 92 07/08/21 06:00 07/08/21 06:00 07/08/21 06:00 07/08/21 06:00 07/08/21 06:00 Oxygen Flow Rate (L/min) [ 3 AMBULATING with Oxygen #1] Oxygen Flow Rate (L/min) 60 Oxygen Delivery Method Mechanical Ventilator Weight: 102.8 kg Body Mass Index (BMI) 40.8 Intake & Output: Intake and Output for Last 24 Hours 07/06/21 07/07/21 07/08/21 23:59 23:59 23:59 Intake Total 915.79 / 948.69 1925.65 / 1941.78 615.71 / 615.71 Output Total 700 / 775 445 / 445 175 / 175 Balance 215.79 / 173.69 1480.65 / 1496.78 440.71 / 440.71 Lab / Micro Data Result Diagrams: 07/08/21 03:10 07/08/21 03:10 Labs: Laboratory Results - last 24 hr 07/07/21 08:50: Ur Random Sodium 11, Urine Creatinine 180.00, Urine Urea Nitrogen 532 07/07/21 11:30: Vancomycin Trough 14.0 07/08/21 03:10: WBC 14.0 H, RBC 4.59, Hgb 13.0, Hct 40.2, MCV 87.6, MCH 28.3, MCHC 32.3, RDW Std Deviation 44.0 H, RDW Coeff of Tyrell 13.7, Plt Count 166, MPV 10.2, Immature Gran % (Auto) 4.700 H, Neut % (Auto) 84.2 H, Lymph % (Auto) 4.6 L, [place] % (Auto) 6.1, Eos % (Auto) 0.1, Baso % (Auto) 0.3, Absolute Neuts (auto) 11.8 H, Absolute Lymphs (auto) 0.64 L, Nucleated RBC % 0 07/08/21 03:10: Sodium 136, Potassium 5.0, Chloride 108 H, Carbon Dioxide 17.0 L, Anion Gap 11, BUN 112 H*, Creatinine 2.95 H, Estim Creat Clear Calc 16.15, Est GFR (MDRD) Af Amer 21 L, Est GFR (MDRD) Non-Af 17 L, BUN/Creatinine Ratio 38.0 H, Glucose 129 H, Calcium 8.2 L, Total Bilirubin 0.30, AST 19, ALT 13, Alkaline Phosphatase 126 H, Lactate Dehydrogenase 401 H, Total Protein 6.6, Albumin 2.4 L, Globulin 4.2, Albumin/Globulin Ratio 0.6 L 07/08/21 03:10: PT 13.9, INR 1.1, APTT 21.8 L 07/08/21 03:10: Ammonia 67.0 H Micro: Microbiology 07/06/21 11:20 Sputum, Induced/Lukens Gram Stain - Final 07/06/21 11:20 Sputum, Induced/Lukens Respiratory Culture - Preliminary Culture exhibits no growth. 06/28/21 12:01 Blood Culture (Wb) - Right Hand Blood Culture - Final No growth in 5 days. 06/28/21 11:52 Blood Culture (Wb) - Left Hand Blood Culture - Final No growth in 5 days. 06/26/21 20:35 Urine, Clean Catch Streptococcus pneumoniae Antigen (M - Final 06/26/21 20:35 Urine, Clean Catch Legionella Antigen - Final 06/28/21 16:50 Mucosa - Nasopharyngeal Influenza Types A,B Direct FA (ROSEMARIE) - Final Influenzae B 06/26/21 20:35 Urine, Clean Catch Urine Culture - Final Escherichia coli Radiography Diagnostic Testing: Radiology Impression Renal Ultrasound 07/07/21 06:34 IMPRESSION: Mild parenchymal renal cortical thinning. Electronically Signed: Cachorro Fox MD at 11:12 EST , Chest X-Ray 07/07/21 11:00 IMPRESSION: The tip of the endotracheal tube is at the level of the margarita. It should be pulled back approximately 2 cm. The remainder the examination is unchanged. There is no evidence of pneumothorax. Electronically Signed: Cachorro Fox MD at 11:20 EST , Physical Exam Const Constitutional Narrative: RASS -2 General Appearance: cooperative, ill appearing, intubated and patient mechanically ventilated Nutritional Appearance: morbidly obese HEENT normocephalic and head/scalp atraumatic Mouth: endotracheal tube in place and OG tube in place Eyes PERRL, EOMs intact bilaterally and conjunctivae normal Neck supple General: trachea midline Chest inspection of chest normal Chest: symmetrical chest wall rise; Negative for crepitus Resp Effort and Inspection: tachypneic Auscultation: diminished lung sounds; Negative for rales, rhonchi or wheezes Cardio regular rate, regular rhythm, no murmurs, no rub and no gallops GI normal to inspection, nondistended, normoactive bowel sounds Extremity no clubbing, cyanosis or edema Skin Skin Narrative: Some ecchymotic areas noted in abdomen after Lovenox Neuro CN's II-XII intact bilaterally, moves all extremities and no focal motor deficits Psych Mood & Affect: apathetic and flat affect Charges/Coding Procedures Hospitalists Procedures: 89181 Critial Care 1st Hr
[2021-07-08] MEDS: Ursodiol 250 MG Tablet PO ×2 (08:04→22:42)
[2021-07-08] MEDS: Cholecalciferol (VIT D3) 25 MCG TABLET (1,000 UNITS) 50 MCG PO (08:04)
[2021-07-08] MEDS: Aspirin E.C. 81 MG Tablet PO (08:05)
[2021-07-08] MEDS: Levothyroxine 88 MCG Tablet PO (08:05)
[2021-07-08] MEDS: Smz/Tmp Ds Tablet 1 TABLET PO (08:05)
[2021-07-08] MEDS: Enoxaparin 40 MG/0.4 ML Syringe SC (08:05)
[2021-07-08] MEDS: Senna/Docusate Sodium 1 Tablet PO ×2 (08:05→22:42)
[2021-07-08] MEDS: Ferrous Gluconate 324 MG Tablet PO (08:05)
[2021-07-08] MEDS: Tacrolimus Anhydrous 1 MG Capsule 2 MG PO ×2 (08:06→22:41)
[2021-07-08] MEDS: guaiFENesin 10 ML UDC (200MG/10ML) 20 ML GT ×4 (08:06→22:41)
[2021-07-08] MEDS: Tacrolimus 0.5 MG Capsule PO ×2 (08:06→22:41)
[2021-07-08] MEDS: Lactulose 20 GM/30 ML UDC PO (08:06)
[2021-07-08] MEDS: dexAMETHasone 10 MG/ML Vial 6 MG IV (08:07)
[2021-07-08] MEDS: Chlorhexidine 15 ML PO ×2 (08:07→22:42)
[2021-07-08] MEDS: rifAXIMin 550 MG Tablet PO ×2 (08:10→22:42)
[2021-07-08] MEDS: Calcium (Elemental) 500 MG Tablet PO ×2 (08:13→22:41)
[2021-07-08 09:06] LABS: Base Excess -11 mmol/L (-2 to +2); Bicarbonate 17.9 mmol/L (22-26); Blood Gas Specimen Type ART; FI02 75; Mode AC; O2 Delivery Device Adult Vent; PEEP 12; PO2 48 mmHG (75-100); RR 12; SITE R Brach; SO2 70 % (95-99); Total Carbon Dioxide 20 mmol/L; Vt 450; pCO2 52.6 mmHg (35-45); pH 7.14 (7.35-7.45)
--- NOTE | 2021-07-08 09:14 | PN.RENAL_ITS ---
Subjective Subjective Events noted, worsening oxygenation this a.m., no urine output. Acidotic. High BUN and creatinine. Borderline fevers. Objective Data Objective Data Vital Signs: Vital Signs Temp Pulse Resp BP Pulse Ox 99.4 F H 101 H 16 123/67 H 93 07/08/21 09:00 07/08/21 09:00 07/08/21 09:00 07/08/21 09:00 07/08/21 09:00 Oxygen Flow Rate (L/min) [ 3 AMBULATING with Oxygen #1] Oxygen Flow Rate (L/min) 60 Oxygen Delivery Method Mechanical Ventilator Weight: 102.8 kg Body Mass Index (BMI) 40.8 Intake & Output: Intake and Output for Last 24 Hours 07/06/21 07/07/21 07/08/21 23:59 23:59 23:59 Intake Total 915.79 / 948.69 1925.65 / 1941.78 1005.93 / 1005.93 Output Total 700 / 775 445 / 445 250 / 250 Balance 215.79 / 173.69 1480.65 / 1496.78 755.93 / 755.93 Lab / Micro Data Result Diagrams: 07/08/21 03:10 07/08/21 03:10 Labs: Laboratory Results - last 24 hr 07/07/21 08:50: Ur Random Sodium 11, Urine Creatinine 180.00, Urine Urea Nit rogen 532 07/07/21 11:30: Vancomycin Trough 14.0 07/08/21 03:10: WBC 14.0 H, RBC 4.59, Hgb 13.0, Hct 40.2, MCV 87.6, MCH 28.3, MCHC 32.3, RDW Std Deviation 44.0 H, RDW Coeff of Tyrell 13.7, Plt Count 166, MPV 10.2, Immature Gran % (Auto) 4.700 H, Neut % (Auto) 84.2 H, Lymph % (Auto) 4.6 L , [place] % (Auto) 6.1, Eos % (Auto) 0.1, Baso % (Auto) 0.3, Absolute Neuts (auto) 11.8 H, Absolute Lymphs (auto) 0.64 L, Nucleated RBC % 0 07/08/21 03:10: Sodium 136, Potassium 5.0, Chloride 108 H, Carbon Dioxide 17.0 L , Anion Gap 11, BUN 112 H*, Creatinine 2.95 H, Estim Creat Clear Calc 16.15, Est GFR (MDRD) Af Amer 21 L, Est GFR (MDRD) Non-Af 17 L, BUN/Creatinine Ratio 38.0 H , Glucose 129 H, Calcium 8.2 L, Total Bilirubin 0.30, AST 19, ALT 13, Alkaline Phosphatase 126 H, Lactate Dehydrogenase 401 H, Total Protein 6.6, Albumin 2.4 L , Globulin 4.2, Albumin/Globulin Ratio 0.6 L 07/08/21 03:10: PT 13.9, INR 1.1, APTT 21.8 L 07/08/21 03:10: Ammonia 67.0 H Micro: Microbiology 07/06/21 11:20 Sputum, Induced/Lukens Gram Stain - Final 07/06/21 11:20 Sputum, Induced/Lukens Respiratory Culture - Preliminary Culture exhibits no growth. 06/28/21 12:01 Blood Culture (Wb) - Right Hand Blood Culture - Final No growth in 5 days. 06/28/21 11:52 Blood Culture (Wb) - Left Hand Blood Culture - Final No growth in 5 days. 06/26/21 20:35 Urine, Clean Catch Streptococcus pneumoniae Antigen (M - Final 06/26/21 20:35 Urine, Clean Catch Legionella Antigen - Final 06/28/21 16:50 Mucosa - Nasopharyngeal Influenza Types A,B Direct FA (ROSEMARIE) - Final Influenzae B 06/26/21 20:35 Urine, Clean Catch Urine Culture - Final Escherichia coli ABG Data ABG results: ABG 07/08/21 09:00 Specimen Type ART Sample Site R Brach pH 7.14 L* Bicarbonate Actual 17.9 L Total CO2 20 Base Excess -11 L O2 Saturation 70 L O2 % 75 ABG pCO2 52.6 H ABG pO2 48 L Respiration Rate 12 O2 Delivery Device Adult Vent Vent Mode AC Tidal Volume 450 POC PEEP 12 Crit Call To/Read Back Yes Blood Gas Notified Whom Ki Radiography Diagnostic Testing: Radiology Impression Renal Ultrasound 07/07/21 06:34 IMPRESSION: Mild parenchymal renal cortical thinning. Electronically Signed: Cachorro Fox MD at 11:12 EST , Chest X-Ray 07/07/21 11:00 IMPRESSION: The tip of the endotracheal tube is at the level of the margarita. It should be pulled back approximately 2 cm. The remainder the examination is unchanged. There is no evidence of pneumothorax. Electronically Signed: Cachorro Fox MD at 11:20 EST , Physical Exam Narrative Minimal exam due to Covid pneumonia Intubated Sedated Richardson catheter No significant edema No cyanosis Assessment & Plan Assessment/Plan (1) OPAL (acute kidney injury): PLAN: Creatinine was close to baseline at 1.4. Worsening over the last 2 days. No hydronephrosis. Urine sodium is low but she has significant high oxygen and PEEP requirements. No room to give more fluids. Will go ahead and plan for dialysis today. Discussed with ICU attending (2) Chronic kidney disease, stage 3a: (3) Immunosuppressed status: PLAN: On tacrolimus, CellCept, prednisone. CellCept is on hold as per transplant team recs. Currently tacrolimus is going through the G-tube. Levels have been ordered on the and are pending. Currently on Decadron. There is no beds available in tertiary care centers. Hence stayed back here despite transplant status
[2021-07-08] MEDS: Polyethylene Glycol 3350 17 GM PACKET GT (10:13)
--- NOTE | 2021-07-08 10:24 | PN.HOSP_ITS ---
Subjective Subjective No issues overnight, she is remained intubated and sedated. She has had an increase in her creatinine and she is also had some worsening respiratory status requiring an increase in PEEP as well as FiO2 Objective Data Objective Data Vital Signs: Vital Signs Temp Pulse Resp BP Pulse Ox 99.3 F H 86 14 106/69 96 07/08/21 10:00 07/08/21 10:00 07/08/21 10:00 07/08/21 10:00 07/08/21 10:00 Oxygen Flow Rate (L/min) [ 3 AMBULATING with Oxygen #1] Oxygen Flow Rate (L/min) 60 Oxygen Delivery Method Mechanical Ventilator Weight: 226 lb 10.163 oz Body Mass Index (BMI) 40.8 Intake & Output: Intake and Output for Last 24 Hours 07/07/21 07/08/21 07/09/21 03:59 03:59 03:59 Intake Total 1158.32 / 1173.55 1808.85 / 1848.05 933.40 / 933.40 Output Total 625 / 625 370 / 370 250 / 250 Balance 533.32 / 548.55 1438.85 / 1478.05 683.40 / 683.40 Lab / Micro Data Result Diagrams: 07/08/21 03:10 07/08/21 03:10 Labs: Laboratory Results - last 24 hr 07/07/21 11:30: Vancomycin Trough 14.0 07/08/21 03:10: WBC 14.0 H, RBC 4.59, Hgb 13.0, Hct 40.2, MCV 87.6, MCH 28.3, MCHC 32.3, RDW Std Deviation 44.0 H, RDW Coeff of Tyrell 13.7, Plt Count 166, MPV 10.2, Immature Gran % (Auto) 4.700 H, Neut % (Auto) 84.2 H, Lymph % (Auto) 4.6 L , Stafford % (Auto) 6.1, Eos % (Auto) 0.1, Baso % (Auto) 0.3, Absolute Neuts (auto) 11.8 H, Absolute Lymphs (auto) 0.64 L, Nucleated RBC % 0 07/08/21 03:10: Sodium 136, Potassium 5.0, Chloride 108 H, Carbon Dioxide 17.0 L , Anion Gap 11, BUN 112 H*, Creatinine 2.95 H, Estim Creat Clear Calc 16.15, Est GFR (MDRD) Af Amer 21 L, Est GFR (MDRD) Non-Af 17 L, BUN/Creatinine Ratio 38.0 H , Glucose 129 H, Calcium 8.2 L, Total Bilirubin 0.30, AST 19, ALT 13, Alkaline Phosphatase 126 H, Lactate Dehydrogenase 401 H, Total Protein 6.6, Albumin 2.4 L , Globulin 4.2, Albumin/Globulin Ratio 0.6 L 07/08/21 03:10: PT 13.9, INR 1.1, APTT 21.8 L 07/08/21 03:10: Ammonia 67.0 H Micro: Microbiology 07/06/21 11:20 Sputum, Induced/Lukens Gram Stain - Final 07/06/21 11:20 Sputum, Induced/Lukens Respiratory Culture - Final Culture exhibits no growth. 06/28/21 12:01 Blood Culture (Wb) - Right Hand Blood Culture - Final No growth in 5 days. 06/28/21 11:52 Blood Culture (Wb) - Left Hand Blood Culture - Final No growth in 5 days. 06/26/21 20:35 Urine, Clean Catch Streptococcus pneumoniae Antigen (M - Final 06/26/21 20:35 Urine, Clean Catch Legionella Antigen - Final 06/28/21 16:50 Mucosa - Nasopharyngeal Influenza Types A,B Direct FA (ROSEMARIE) - Final Influenzae B 06/26/21 20:35 Urine, Clean Catch Urine Culture - Final Escherichia coli ABG Data ABG results: ABG 07/08/21 09:00 Specimen Type ART Sample Site R Brach pH 7.14 L* Bicarbonate Actual 17.9 L Total CO2 20 Base Excess -11 L O2 Saturation 70 L O2 % 75 ABG pCO2 52.6 H ABG pO2 48 L Respiration Rate 12 O2 Delivery Device Adult Vent Vent Mode AC Tidal Volume 450 POC PEEP 12 Crit Call To/Read Back Yes Blood Gas Notified Whom Ki Radiography Diagnostic Testing: Radiology Impression Renal Ultrasound 07/07/21 06:34 IMPRESSION: Mild parenchymal renal cortical thinning. Electronically Signed: Cachorro Fox MD at 11:12 EST , Chest X-Ray 07/07/21 11:00 IMPRESSION: The tip of the endotracheal tube is at the level of the margarita. It should be pulled back approximately 2 cm. The remainder the examination is unchanged. There is no evidence of pneumothorax. Electronically Signed: Cachorro Fox MD at 11:20 EST , Physical Exam Const General Appearance: intubated and patient mechanically ventilated HEENT normocephalic and moist oral mucous membranes Eyes PERRL and conjunctivae normal Neck supple and no JVD Resp normal respiratory effort, no retractions and no use of accessory muscles Auscultation: diminished lung sounds; Negative for crackles, rales, rhonchi or wheezes Cardio regular rate, regular rhythm, S1 normal heart sound, S2 normal heart sound and no murmurs GI soft to palpation and non-distended; Negative for hepatosplenomegaly Extremity no clubbing, cyanosis or edema Skin no rashes or lesions noted Neuro Sensorium / Orientation: sedated on vent Psych Appearance: intubated Assessment & Plan Assessment/Plan (1) Acute respiratory failure with hypoxia: (2) Influenza B: (3) COVID-19: (4) OPAL (acute kidney injury): (5) Hyperkalemia: PLAN: 1. Acute hypoxic respiratory failure secondary to influenza B and COVID-19/OPAL on CKD 3a/history of asthma -Patient required intubation on 07/06/2021 -Had been on BiPAP for 48 continuous straight hours with worsening oxygenation -Has been sick for approximately 3 weeks prior to admission, therefore did not qualify for remdesivir ?Did complete Decadron and Tamiflu -Was vaccinated and boosted however was immunocompromised with CellCept, tacrolimus, and prednisone -Not a baricitinib candidate secondary to liver transplant -Pulmonary medicine following-appreciate input -ID following-appreciate input ?Renal function is worsening, will continue to monitor. Appreciate nephrology's assistance 2. Autoimmune hepatitis status post liver transplant ?Appreciate gastroenterology's input ?You with rifaximin steroid will hold her other her antirejection medications 3. Hypothyroidism ?Stable ?Continue with Synthroid 4. GERD ?Stable ?Continue with PPI 5. HLD/obesity ?Continue with statin ?Her BMI of 38.8 complicates care DVT: Lovenox Charges/Coding Visit Charges Inpatient E&M: 07680 Subs Hosp L2
[2021-07-08 10:55] LABS: Erythrocyte Sedimentation Rate 62 mm/hr (0-30); GGTP 13 U/L (5-55); LDH 414 U/L (84-246)
[2021-07-08 11:04] LABS: Lactic Acid 0.7 mmol/L (0.4-1.9)
--- NOTE | 2021-07-08 13:04 | PCM.PN.ID ---
Physical Exam Narrative Worsening OPAL, no fever, remains on vent Const no apparent distress Resp Effort and Inspection: mechanically ventilated Auscultation: diminished lung sounds Cardio regular rate and regular rhythm GI soft to palpation and non-tender Skin no rashes or lesions noted ID ID: Route of nutrition/ use of supplements: [] Nutritional Intake: [] IV Site: [] Richardson Catheter: [] Assessment & Plan Assessment/Plan (1) CKD (chronic kidney disease) stage 3, GFR 30-59 ml/min: (2) Liver transplant recipient: (3) Hypoxia: (4) COVID-19: PLAN: Sick for approximately 3 weeks prior to admit. Covid vaccine x3. Also flu B Ag (+). On cellcept, tacro, pred, bactrim at home with h/o liver transplant. Not candidate for baricitinib due to liver transplant. On dex here and completed empiric course of cefepime. Ucx with ecoli, 80-100k. Completed 5 days of tamiflu for flu coverage. Pulm following, now intubated. Worsening OPAL, neph and GI following. Sputum 07/06 finalized as neg. No fever overnight. Will follow (5) Influenza B:
[2021-07-08] MEDS: Ascorbic Acid 500 MG Tablet PO (14:55)
--- NOTE | 2021-07-08 15:10 | RAD_ITS ---
STUDY: X-RAY CHEST REASON FOR EXAM: Female, 61 years old. Dialysis line placement TECHNIQUE: Single AP portable view of the chest. COMPARISON: Comparison is made with prior examination dated 07/07/2021. FINDINGS: An endotracheal tube is in situ. The tip is at 2.5 cm proximal to the margarita. A right-sided dialysis catheter has been placed with the tip in the right atrium. EKG leads are seen. Orogastric tube is seen with the tip below the left hemidiaphragm. Stable as congestion and mild bibasilar atelectasis. There is no demonstrated pleural abnormality. Normal size heart. Normal mediastinum and rebeca. Normal visualized pulmonary arteries. There is atherosclerotic tortuosity of the aortic arch and descending thoracic aorta. Normal visualized thoracic spine. Normal visualized ribs, clavicles, and shoulders. There is no demonstrated abnormality of the visualized soft tissue structures of the upper abdomen. RAD/CXR for Line Placement IMPRESSION: The support tubes are in good position. Electronically Signed: Cachorro Fox MD at 15:28 EST ,
--- NOTE | 2021-07-08 15:49 | PCM.OP.BLANK ---
Operative Report Date of Procedure: 07/08/21 Temporary hemodialysis catheter placement procedure note Indication: Hemodialysis Procedure: A time-out was completed to verify correct patient, indication, medication allergies, procedure, coagulation studies, informed consent signed, and equipment needed. The patient was placed in the supine position for a central line placement to the right IJ vein. The patients right neck was prepped using chlorhexidine and a full body sterile drape was applied. 1% lidocaine was used to anesthetize the surrounding skin. A 12 fr 20 temporary hemodialysis catheter introduced into the internal jugular vein using the modified Seldinger technique with the assistance of ultrasound. The site was dilated up twice in a stepwise fashion. The catheter was threaded smoothly over the guidewire, the guidewire was removed easily, nonpulsatile blood returned. All ports were aspirated of air and flushed with sterile saline. The catheter was sutured in place and covered with an occlusive dressing impregnated with chlorhexidine. Post-procedure: The patient tolerated the procedure well. Vital signs remained stable. EBL 5 cc. No complications. Chest X Ray ordered to confirm tip placement and the absence of pneumothorax.
[2021-07-08 16:45] LABS: Hepatitis B Surface Antibody Non-Reactive; Hepatitis B Surface Antigen Non-Reactive (Nonreactive)
--- NOTE | 2021-07-08 18:48 | DIALYSIS ---
HD x 3 hours complete. Ran on 2k bath. UF of 700ml. Used temporary right IJ dialysis catheter. Lumens closed with heparin per fill volume. Caps placed. Dressing is intact. See tx sheet for more details. Report given to EDWARD Hardy.
--- NOTE | 2021-07-08 18:53 | PN_ITS ---
Subjective Subjective Patient is on hemodialysis. She is intubated and sedated. She has been febrile today. Objective Data Objective Data Vital Signs: Vital Signs Temp Pulse Resp BP Pulse Ox 99.9 F H 88 11 L 101/75 96 07/08/21 18:00 07/08/21 18:00 07/08/21 18:00 07/08/21 18:00 07/08/21 18:00 Oxygen Flow Rate (L/min) [ 3 AMBULATING with Oxygen #1] Oxygen Flow Rate (L/min) 60 Oxygen Delivery Method Mechanical Ventilator Weight: 226 lb 10.163 oz Body Mass Index (BMI) 40.8 Intake & Output: Intake and Output for Last 24 Hours 07/06/21 07/07/21 07/08/21 23:59 23:59 23:59 Intake Total 915.79 / 948.69 1925.65 / 1941.78 2579.45 / 2579.45 Output Total 700 / 775 445 / 445 570 / 570 Balance 215.79 / 173.69 1480.65 / 1496.78 45 / 45 Lab / Micro Data Result Diagrams: 07/08/21 03:10 07/08/21 03:10 Labs: Laboratory Results - last 24 hr 07/08/21 03:10: WBC 14.0 H, RBC 4.59, Hgb 13.0, Hct 40.2, MCV 87.6, MCH 28.3, MCHC 32.3, RDW Std Deviation 44.0 H, RDW Coeff of Tyrell 13.7, Plt Count 166, MPV 10.2, Immature Gran % (Auto) 4.700 H, Neut % (Auto) 84.2 H, Lymph % (Auto) 4.6 L , [place] % (Auto) 6.1, Eos % (Auto) 0.1, Baso % (Auto) 0.3, Absolute Neuts (auto) 11.8 H, Absolute Lymphs (auto) 0.64 L, Nucleated RBC % 0 07/08/21 03:10: Sodium 136, Potassium 5.0, Chloride 108 H, Carbon Dioxide 17.0 L , Anion Gap 11, BUN 112 H*, Creatinine 2.95 H, Estim Creat Clear Calc 16.15, Est GFR (MDRD) Af Amer 21 L, Est GFR (MDRD) Non-Af 17 L, BUN/Creatinine Ratio 38.0 H , Glucose 129 H, Calcium 8.2 L, Total Bilirubin 0.30, AST 19, ALT 13, Alkaline Phosphatase 126 H, Lactate Dehydrogenase 401 H, Total Protein 6.6, Albumin 2.4 L , Globulin 4.2, Albumin/Globulin Ratio 0.6 L 07/08/21 03:10: PT 13.9, INR 1.1, APTT 21.8 L 07/08/21 03:10: Ammonia 67.0 H 07/08/21 10:22: ESR 62 H 07/08/21 10:22: GGT 13, Lactate Dehydrogenase 414 H, C-React Prot Ext Range 35.00 H 07/08/21 10:22: Lactic Acid 0.7 07/08/21 15:54: Hep Bs Antigen Non-Reactive, Hep Bs Antibody Non-Reactive Micro: Microbiology 07/06/21 11:20 Sputum, Induced/Lukens Gram Stain - Final 07/06/21 11:20 Sputum, Induced/Lukens Respiratory Culture - Final Culture exhibits no growth. 06/28/21 12:01 Blood Culture (Wb) - Right Hand Blood Culture - Final No growth in 5 days. 06/28/21 11:52 Blood Culture (Wb) - Left Hand Blood Culture - Final No growth in 5 days. 06/26/21 20:35 Urine, Clean Catch Streptococcus pneumoniae Antigen (M - Final 06/26/21 20:35 Urine, Clean Catch Legionella Antigen - Final 06/28/21 16:50 Mucosa - Nasopharyngeal Influenza Types A,B Direct FA (ROSEMARIE) - Final Influenzae B 06/26/21 20:35 Urine, Clean Catch Urine Culture - Final Escherichia coli ABG Data ABG results: ABG 07/08/21 09:00 Specimen Type ART Sample Site R Brach pH 7.14 L* Bicarbonate Actual 17.9 L Total CO2 20 Base Excess -11 L O2 Saturation 70 L O2 % 75 ABG pCO2 52.6 H ABG pO2 48 L Respiration Rate 12 O2 Delivery Device Adult Vent Vent Mode AC Tidal Volume 450 POC PEEP 12 Crit Call To/Read Back Yes Blood Gas Notified Whom Ki Radiography Diagnostic Testing: Radiology Impression Chest X-Ray 07/08/21 15:10 IMPRESSION: The support tubes are in good position. Electronically Signed: Cachorro Fox MD at 15:28 EST , Physical Exam HEENT HEENT Narrative: Intubated Eyes Eyelid: eyelids abnormal Conjunctiva: conjunctiva abnormal Sclera: sclera normal Resp Auscultation: crackles and diminished lung sounds Cardio Rate: tachycardic GI Palpation: soft Assessment & Plan Assessment/Plan (1) Immunocompromised patient: PLAN: I spoke with his container coordinator and the attending physician Dr. Garcia. They recommended that he continue tacrolimus and await his levels. They did not have any recommendations regarding steroids for rejection prevention. I expressed to them that immunosuppression and a post transplant patient with 2 viral pneumonia and possible urosepsis now on hemodialysis with severe acidosis is very serious. They said that they wanted her to stay on tacrolimus and if her levels of tacrolimus come back high they will have recommendations regarding that medicine. (2) Hepatic encephalopathy: PLAN: She is receiving lactulose for hyperammonia anemia which is multifactorial at this time secondary to renal failure and sepsis with possible acute allograft rejection. (3) OPAL (acute kidney injury): PLAN: Patient has undergone hemodialysis. She may benefit from CVVHD if ammonia does not correct. However that is using a bridge to transplant. Poor prognosis. Charges/Coding Visit Charges Inpatient E&M: 97435 Subs Hosp L3
[2021-07-08] MEDS: Heparin 10,000 UNITS/10 ML Vial 2800 UNITS IV (20:34)
[2021-07-08] MEDS: Acetaminophen 650 MG/20 ML UDC GT (22:40)
[2021-07-08] MEDS: Atorvastatin Calcium 10 MG Tablet PO (22:42)
[2021-07-09] VITALS (33 sets, daily range): BP systolic 94–146; BP diastolic 51–79; PULSE 86–120; RESP 13–32; TEMP 37.7–38.4; O2SAT 87–94
[2021-07-09] MEDS: guaiFENesin 10 ML UDC (200MG/10ML) 20 ML GT ×6 (02:50→23:12)
[2021-07-09] MEDS: Propofol 10MG/Ml 1,000 MG/100 ML Bottle 24.7 MG CONT INF ×6 (03:00→21:26)
[2021-07-09] MEDS: Vital AF 1.2 Cal Liquid 1,000 ML 60 ML GT ×2 (03:13→23:11)
[2021-07-09] MEDS: 0.9% Saline Lock 10 ML Syringe IV ×3 (03:16→23:12)
[2021-07-09 03:28] LABS: Absolute Lymphocyte Count 0.56 X10^3/uL (0.83-4.51); Absolute Neutrophil Count 11.2 X10^3/uL (2.0-7.7); Basophil# 0.03 X10^3/uL; Basophil% 0.2 % (0-1); Eosinophil# 0.05 X10^3/uL; Eosinophils% 0.4 % (0-5); Hematocrit 36.2 % (37-47); Hemoglobin 12.3 g/dL (12.0-15.0); Lymphocyte # 0.56 X10^3/ul (0.83-4.51); Lymphocyte % 4.2 % (19-41); Mean Corpuscular Hgb 28.4 pg (27.0-32.0); Mean Corpuscular Volume 83.6 fL (81-99); Mean Platelet Vol. 9.9 fl (6.2-12.0); Monocyte# 0.85 X10^3/uL; Monocyte% 6.4 % (0-10); NRBC Flagged by Analyzer 0 % (0-5); Neutrophil # 11.16 X10^3/uL (2.7-7.7); Neutrophil % 84.1 % (47-70); POSITIVE DIFFERENTIAL YES; Platelet Count 136 K/mm3 (150-450); RBC Distribution Width CV 13.8 % (11.6-14.6); Red Blood Count 4.33 M/mm3 (4.2-5.4); White Blood Count 13.3 K/mm3 (4.4-11.0)
[2021-07-09 03:31] LABS: Differential Indicated SCAN CRITERIA MET
[2021-07-09 03:58] LABS: ALB/GLOB Ratio 0.6 RATIO (0.9-2.4); AST(SGOT) 20 U/L (15-37); Alanine Aminotransfer ALT/SGPT 14 U/L (13-56); Albumin, Serum 2.3 g/dL (3.2-5.0); Alkaline Phosphatase 131 U/L (45-117); Anion Gap 10 (5-15); BUN 67 mg/dL (7-18); BUN/Creat Ratio 26.4 RATIO (10-20); Calcium,Total 7.5 mg/dL (8.5-10.1); Chloride 100 mmol/L (98-107); Creatinine, Serum 2.54 mg/dL (0.55-1.02); EST Glomerular Filtration Rate 20 mL/min (>60); Est Glom Filt Rate - Afr Amer 25 mL/min (>60); Estimated Creatinine Clearance 18.75 ml/min; Glucose 124 mg/dL (74-106); Potassium 3.9 mmol/L (3.5-5.1); Protein, Total 6.3 g/dL (6.4-8.2); Sodium Level 135 mmol/L (136-145)
[2021-07-09 05:38] LABS: Differential Comment SCANNED
[2021-07-09] MEDS: Enoxaparin 30 MG/0.3 ML Syringe SC (05:45)
--- NOTE | 2021-07-09 06:38 | NURSING ---
Noted pt's O2 sat dropping to 83% Upon entering room pt noted to be breathing 38-41 x's min, HR up to 120s; pt able to vocalize around ETT, verified cuff inflation, cuff felt somewhat firm, repositioned ETT via arora to opposite side of mouth; no intervention remedying current alarms or sounds coming from around ETT. Vent began to alarm for low TV, Staff Assist alarm sounded for pt's room to bring additional staff to room in order to help assess. at bedside, advised this RN to place 3cc of air into cuff and then another 3cc when TV did not resume to prescriptive volume. Vent removed from ETT and ambubag placed at 100% FiO2 w/ bagging. Pt bagged for 1-2 minutes, then returned to [facility] vent for support; appropriate TV witnessed, pt lavaged for lg amt brown/addison secretions. Port CXR ordered and read at bedside. FiO2 turned up to 85% to assist pt recovery in saturation.
--- NOTE | 2021-07-09 06:48 | RAD_ITS ---
STUDY: X-RAY CHEST REASON FOR EXAM: Female, 61 years old. Mechanical ventilator TECHNIQUE: Portable, semierect, AP chest radiograph COMPARISON: 07/08/2021 RAD/Chest 1 View (Portable) IMPRESSION: No significant change in bilateral pulmonary infiltrates. Endotracheal tube, right IJ central catheter, left upper extremity PICC, and enteric tube remain. Atrial septal occlusion device redemonstrated. Electronically Signed: Kareem Vilchis MD at 7:57 EST ,
--- NOTE | 2021-07-09 07:31 | PCM.PN.INT ---
Assessment & Plan Assessment/Plan (1) COVID-19: (2) Influenza B: PLAN: RECOMMENDATIONS: 1. Continue mechanical ventilation and wean FiO2 for saturations greater than 90%. 2. No antibiotics given negative cultures 3. Continue Decadron to complete 10-day treatment course. 4. Continue prophylactic Lovenox. 5. Volume removal with dialysis per nephrology 6. Appreciate nephrology and GI recommendations IMPRESSIONS: 1. Acute hypoxemic respiratory failure secondary to COVID-19/influenza B The patient was initially admitted to the hospital on June 27 and subsequently tested positive for both COVID-19 and influenza. The patient is vaccinated at her baseline. However, she is immunosuppressed due to a history of a liver transplant. Her oxygenation status has worsened over the course of her hospitalization. Patient subsequently agreed to intubation on 07/06/2021. She has completed her treatment course of Tamiflu. It is reasonable to continue Decadron and prophylactic Lovenox. Patient is currently afebrile, without leukocytosis or fever. Sputum culture is showing no growth at this time. Clinical suspicion for secretions secondary to influenza. Continue to monitor off antibiotics. Wean FiO2 for oxygen saturations greater than 90%. Volume removal with dialysis will be helpful as patient is almost 7 L positive over the course of hospitalization 2. Acute kidney injury Worsened from yesterday. Likely prerenal in etiology in the setting of her acute presentation. Continue to monitor urine output. Patient does have some hyperkalemia. Await nephrology recommendations. Probable dialysis later today with volume removal if possible 3. Chronic baseline immunosuppressed state secondary to liver transplantation Continue baseline outpatient immunosuppressive regimen. GI consulted yesterday. Patient has been off of CellCept. GI recommending full removal of immunosuppression. Will clarify that the manufacturing coordinator has been contacted. Patient has been initiated on lactulose 4. Morbid obesity/asthma/hypothyroidism/hyperlipidemia/GERD Complicates care, management, recovery and prognosis. Continue home medications as indicated. TIME: 34 minutes of critical care time was spent addressing the patient's acute hypoxemic respiratory failure secondary to combined COVID-19 and influenza B, acute kidney injury, review of all data and collaboration with the care team. Subjective Subjective Patient did okay overnight. Patient has tolerated current vent settings well. Mild fever has been noted. Patient did have dialysis yesterday with 700 cc removed. This morning, a rapid response was initiated secondary to decreased tidal volumes. Nursing reported significant secretions at that time that were removed. On my evaluation, patient's cough was low, so additional air was added. Chest x-ray following the event showed no pneumothorax, pneumomediastinum and endotracheal tube in appropriate position. Objective Data Objective Data Vital Signs: Vital Signs Temp Pulse Resp BP Pulse Ox 38.2 C H 94 14 101/67 90 07/09/21 05:00 07/09/21 05:00 07/09/21 05:00 07/09/21 05:00 07/09/21 05:00 Oxygen Flow Rate (L/min) [ 3 AMBULATING with Oxygen #1] Oxygen Flow Rate (L/min) 60 Oxygen Delivery Method Mechanical Ventilator Weight: 102.7 kg Body Mass Index (BMI) 40.8 Intake & Output: Intake and Output for Last 24 Hours 07/07/21 07/08/21 07/09/21 23:59 23:59 23:59 Intake Total 1925.65 / 1941.78 3194.95 / 3234.65 648.70 / 648.70 Output Total 445 / 445 595 / 595 Balance 1480.65 / 1496.78 2599.95 / 2639.65 648.70 / 648.70 Lab / Micro Data Result Diagrams: 07/09/21 03:15 07/09/21 03:15 Labs: Laboratory Results - last 24 hr 07/08/21 10:22: ESR 62 H 07/08/21 10:22: GGT 13, Lactate Dehydrogenase 414 H, C-React Prot Ext Range 35.00 H 07/08/21 10:22: Lactic Acid 0.7 07/08/21 15:54: Hep Bs Antigen Non-Reactive, Hep Bs Antibody Non-Reactive 07/09/21 03:15: WBC 13.3 H, RBC 4.33, Hgb 12.3, Hct 36.2 L, MCV 83.6, MCH 28.4, MCHC 34.0 D, RDW Std Deviation 42.0, RDW Coeff of Tyrell 13.8, Plt Count 136 L, MPV 9.9, Immature Gran % (Auto) 4.700 H, Neut % (Auto) 84.1 H, Lymph % (Auto) 4.2 L, [place] % (Auto) 6.4, Eos % (Auto) 0.4, Baso % (Auto) 0.2, Absolute Neuts (auto) 11.2 H, Absolute Lymphs (auto) 0.56 L, Nucleated RBC % 0, Differential Comment SCANNED 07/09/21 03:15: Sodium 135 L, Potassium 3.9, Chloride 100, Carbon Dioxide 25.0, Anion Gap 10, BUN 67 H, Creatinine 2.54 H, Estim Creat Clear Calc 18.75, Est GFR (MDRD) Af Amer 25 L, Est GFR (MDRD) Non-Af 20 L, BUN/Creatinine Ratio 26.4 H, Glucose 124 H, Calcium 7.5 L, Total Bilirubin 0.40, AST 20, ALT 14, Alkaline Phosphatase 131 H, Total Protein 6.3 L, Albumin 2.3 L, Globulin 4.0, Albumin/Globulin Ratio 0.6 L Micro: Microbiology 07/06/21 11:20 Sputum, Induced/Lukens Gram Stain - Final 07/06/21 11:20 Sputum, Induced/Lukens Respiratory Culture - Final Culture exhibits no growth. 06/28/21 12:01 Blood Culture (Wb) - Right Hand Blood Culture - Final No growth in 5 days. 06/28/21 11:52 Blood Culture (Wb) - Left Hand Blood Culture - Final No growth in 5 days. 06/26/21 20:35 Urine, Clean Catch Streptococcus pneumoniae Antigen (M - Final 06/26/21 20:35 Urine, Clean Catch Legionella Antigen - Final 06/28/21 16:50 Mucosa - Nasopharyngeal Influenza Types A,B Direct FA (ROSEMARIE) - Final Influenzae B 06/26/21 20:35 Urine, Clean Catch Urine Culture - Final Escherichia coli ABG Data ABG results: ABG 07/08/21 09:00 Specimen Type ART Sample Site R Brach pH 7.14 L* Bicarbonate Actual 17.9 L Total CO2 20 Base Excess -11 L O2 Saturation 70 L O2 % 75 ABG pCO2 52.6 H ABG pO2 48 L Respiration Rate 12 O2 Delivery Device Adult Vent Vent Mode AC Tidal Volume 450 POC PEEP 12 Crit Call To/Read Back Yes Blood Gas Notified Whom Ki Radiography Diagnostic Testing: Radiology Impression Chest X-Ray 07/08/21 15:10 IMPRESSION: The support tubes are in good position. Electronically Signed: Cachorro Fox MD at 15:28 EST , Physical Exam Const Constitutional Narrative: RASS -2 General Appearance: cooperative, ill appearing, intubated and patient mechanically ventilated Nutritional Appearance: morbidly obese HEENT normocephalic and head/scalp atraumatic HEENT Narrative: Some bleeding noted around dialysis catheter Mouth: endotracheal tube in place and OG tube in place Eyes PERRL, EOMs intact bilaterally and conjunctivae normal Neck supple General: trachea midline Chest inspection of chest normal Chest: symmetrical chest wall rise; Negative for crepitus Resp Resp Narrative: Peak airway pressures in the 20s to 30s. Getting full volumes now. Effort and Inspection: tachypneic Auscultation: diminished lung sounds; Negative for rales, rhonchi or wheezes Cardio regular rate, regular rhythm, no murmurs, no rub and no gallops GI normal to inspection, nondistended, normoactive bowel sounds Extremity no clubbing, cyanosis or edema Skin Skin Narrative: Some ecchymotic areas noted in abdomen after Lovenox Neuro CN's II-XII intact bilaterally, moves all extremities and no focal motor deficits Psych Mood & Affect: apathetic and flat affect Charges/Coding Procedures Hospitalists Procedures: 19901 Critial Care 1st Hr
[2021-07-09 08:11] LABS: Allen Test Positive; Base Excess -3 mmol/L (-2 to +2); Blood Gas Specimen Type ART; Comment ACVC+; FI02 90; O2 Delivery Device Adult Vent; PEEP 12; PO2 51 mmHG (75-100); RR 14; SITE R Brach; SO2 81 % (95-99); Total Carbon Dioxide 26 mmol/L; Vt 450; pCO2 49.8 mmHg (35-45); pH 7.29 (7.35-7.45)
[2021-07-09] MEDS: Senna/Docusate Sodium 1 Tablet PO (08:27)
[2021-07-09] MEDS: Cholecalciferol (VIT D3) 25 MCG TABLET (1,000 UNITS) 50 MCG PO (08:27)
[2021-07-09] MEDS: Calcium (Elemental) 500 MG Tablet PO ×2 (08:27→23:13)
[2021-07-09] MEDS: Ascorbic Acid 500 MG Tablet PO ×2 (08:27→16:56)
[2021-07-09] MEDS: Tacrolimus 0.5 MG Capsule PO ×2 (08:28→23:13)
[2021-07-09] MEDS: Aspirin E.C. 81 MG Tablet PO (08:28)
[2021-07-09] MEDS: Tacrolimus Anhydrous 1 MG Capsule 2 MG PO ×2 (08:28→23:13)
[2021-07-09] MEDS: Ursodiol 250 MG Tablet PO ×2 (08:28→23:13)
[2021-07-09] MEDS: Polyethylene Glycol 3350 17 GM PACKET GT (08:28)
[2021-07-09] MEDS: Lactulose 20 GM/30 ML UDC PO ×3 (08:29→23:12)
[2021-07-09] MEDS: rifAXIMin 550 MG Tablet PO ×2 (08:29→23:12)
[2021-07-09] MEDS: dexAMETHasone 10 MG/ML Vial 6 MG IV (08:29)
[2021-07-09] MEDS: Levothyroxine 88 MCG Tablet PO (08:29)
[2021-07-09] MEDS: Chlorhexidine 15 ML PO ×2 (08:30→23:11)
[2021-07-09] MEDS: Acetaminophen 650 MG/20 ML UDC GT (08:47)
--- NOTE | 2021-07-09 10:56 | PCM.PN.HOSP ---
Subjective Subjective Appears that overnight she may have had an issue with a deflated cuff which led to low tidal volumes. This was rectified and she is doing okay back up to 90% on FiO2 of 75% Objective Data Objective Data Vital Signs: Vital Signs Temp Pulse Resp BP Pulse Ox 100.7 F H 115 H 32 H 118/72 87 07/09/21 10:00 07/09/21 10:00 07/09/21 10:00 07/09/21 10:00 07/09/21 10:00 Oxygen Flow Rate (L/min) [ 3 AMBULATING with Oxygen #1] Oxygen Flow Rate (L/min) 60 Oxygen Delivery Method Mechanical Ventilator Weight: 226 lb 6.636 oz Body Mass Index (BMI) 40.8 Intake & Output: Intake and Output for Last 24 Hours 07/08/21 07/09/21 07/10/21 03:59 03:59 03:59 Intake Total 1808.85 / 1848.05 3418.77 / 3458.47 1354.30 / 1354.30 Output Total 370 / 370 595 / 595 50 / 50 Balance 1438.85 / 1478.05 2823.77 / 2863.47 1304.30 / 1304.30 Lab / Micro Data Result Diagrams: 07/09/21 03:15 07/09/21 03:15 Labs: Laboratory Results - last 24 hr 07/08/21 10:22: ESR 62 H 07/08/21 10:22: Lactic Acid 0.7 07/08/21 15:54: Hep Bs Antigen Non-Reactive, Hep Bs Antibody Non-Reactive 07/09/21 03:15: WBC 13.3 H, RBC 4.33, Hgb 12.3, Hct 36.2 L, MCV 83.6, MCH 28.4, MCHC 34.0 D, RDW Std Deviation 42.0, RDW Coeff of Tyrell 13.8, Plt Count 136 L, MPV 9.9, Immature Gran % (Auto) 4.700 H, Neut % (Auto) 84.1 H, Lymph % (Auto) 4.2 L, [place] % (Auto) 6.4, Eos % (Auto) 0.4, Baso % (Auto) 0.2, Absolute Neuts (auto) 11.2 H, Absolute Lymphs (auto) 0.56 L, Nucleated RBC % 0, Differential Comment SCANNED 07/09/21 03:15: Sodium 135 L, Potassium 3.9, Chloride 100, Carbon Dioxide 25.0, Anion Gap 10, BUN 67 H, Creatinine 2.54 H, Estim Creat Clear Calc 18.75, Est GFR (MDRD) Af Amer 25 L, Est GFR (MDRD) Non-Af 20 L, BUN/Creatinine Ratio 26.4 H, Glucose 124 H, Calcium 7.5 L, Total Bilirubin 0.40, AST 20, ALT 14, Alkaline Phosphatase 131 H, Total Protein 6.3 L, Albumin 2.3 L, Globulin 4.0, Albumin/Globulin Ratio 0.6 L Micro: Microbiology 07/06/21 11:20 Sputum, Induced/Lukens Gram Stain - Final 07/06/21 11:20 Sputum, Induced/Lukens Respiratory Culture - Final Culture exhibits no growth. 06/28/21 12:01 Blood Culture (Wb) - Right Hand Blood Culture - Final No growth in 5 days. 06/28/21 11:52 Blood Culture (Wb) - Left Hand Blood Culture - Final No growth in 5 days. 06/26/21 20:35 Urine, Clean Catch Streptococcus pneumoniae Antigen (M - Final 06/26/21 20:35 Urine, Clean Catch Legionella Antigen - Final 06/28/21 16:50 Mucosa - Nasopharyngeal Influenza Types A,B Direct FA (ROSEMARIE) - Final Influenzae B 06/26/21 20:35 Urine, Clean Catch Urine Culture - Final Escherichia coli ABG Data ABG results: ABG 07/09/21 08:03 Specimen Type ART Sample Site R Brach pH 7.29 L Bicarbonate Actual 24.0 Total CO2 26 Base Excess -3 L O2 Saturation 81 L O2 % 90 ABG pCO2 49.8 H ABG pO2 51 L Edgar Test Positive Respiration Rate 14 O2 Delivery Device Adult Vent Tidal Volume 450 POC PEEP 12 Clinical Comments ACVC+ Radiography Diagnostic Testing: Radiology Impression Chest X-Ray 07/08/21 15:10 IMPRESSION: The support tubes are in good position. Electronically Signed: Cachorro Fox MD at 15:28 EST , Chest X-Ray 07/09/21 06:48 IMPRESSION: No significant change in bilateral pulmonary infiltrates. Endotracheal tube, right IJ central catheter, left upper extremity PICC, and enteric tube remain. Atrial septal occlusion device redemonstrated. Electronically Signed: Kareem Vilchis MD at 7:57 EST , Physical Exam Narrative Const General Appearance: intubated and patient mechanically ventilated HEENT normocephalic and moist oral mucous membranes Eyes PERRL and conjunctivae normal Neck supple and no JVD Resp normal respiratory effort, no retractions and no use of accessory muscles Auscultation: diminished lung sounds; Negative for crackles, rales, rhonchi or wheezes Cardio regular rate, regular rhythm, S1 normal heart sound, S2 normal heart sound and no murmurs GI soft to palpation and non-distended; Negative for hepatosplenomegaly Extremity no clubbing, cyanosis or edema Skin no rashes or lesions noted Neuro Sensorium / Orientation: sedated on vent Psych Appearance: intubated Assessment & Plan Assessment/Plan (1) Acute respiratory failure with hypoxia: (2) Influenza B: (3) COVID-19: (4) OPAL (acute kidney injury): (5) Hyperkalemia: PLAN: 1. Acute hypoxic respiratory failure secondary to influenza B and COVID-19/OAPL on CKD 3a/history of asthma -Patient required intubation on 07/06/2021 -Has been sick for approximately 3 weeks prior to admission, therefore did not qualify for remdesivir ?Did complete Decadron and Tamiflu -Was vaccinated and boosted however was immunocompromised with CellCept, tacrolimus, and prednisone -Not a baricitinib candidate secondary to liver transplant -Pulmonary medicine following-appreciate input -ID following-appreciate input ?Renal function is worsening, she had a dialysis catheter placed yesterday, hopefully can initiate dialysis today as she is 7 L positive which could be restricting her respiratory status 2. Autoimmune hepatitis status post liver transplant ?Appreciate gastroenterology's input ?Continue with rifaximin steroid ?Still on tacrolimus, level is pending 3. Hypothyroidism ?Stable ?Continue with Synthroid 4. GERD ?Stable ?Continue with PPI 5. HLD/obesity ?Continue with statin ?Her BMI of 38.8 complicates care DVT: Lovenox Charges/Coding Visit Charges Inpatient E&M: 31130 Subs Hosp L2
--- NOTE | 2021-07-09 19:43 | DIALYSIS ---
Pt tolerated 2hr HD tx well. Net UF -1200ml. Exit site dressing saturated w/ blood. Changed from CHG dressing to gauze 4x4's w/ pressure. Will Monitor. See flow record for tx data.
[2021-07-09] MEDS: Atorvastatin Calcium 10 MG Tablet PO (23:13)
[2021-07-10] VITALS (32 sets, daily range): BP systolic 102–173; BP diastolic 57–83; PULSE 88–118; RESP 14–33; TEMP 37.7–38.1; O2SAT 90–98
[2021-07-10] MEDS: Propofol 10MG/Ml 1,000 MG/100 ML Bottle 24.7 MG CONT INF (01:00)
[2021-07-10] MEDS: guaiFENesin 10 ML UDC (200MG/10ML) 20 ML GT ×5 (02:33→20:19)
[2021-07-10 04:01] LABS: Absolute Lymphocyte Count 0.67 X10^3/uL (0.83-4.51); Absolute Neutrophil Count 15.8 X10^3/uL (2.0-7.7); Basophil# 0.03 X10^3/uL; Basophil% 0.2 % (0-1); Eosinophil# 0.06 X10^3/uL; Eosinophils% 0.3 % (0-5); Hematocrit 34.5 % (37-47); Hemoglobin 11.6 g/dL (12.0-15.0); Lymphocyte # 0.67 X10^3/ul (0.83-4.51); Lymphocyte % 3.8 % (19-41); Mean Corp Hgb Conc 33.6 g/dL (32-36); Mean Corpuscular Hgb 28.4 pg (27.0-32.0); Mean Corpuscular Volume 84.6 fL (81-99); Mean Platelet Vol. 9.7 fl (6.2-12.0); Monocyte% 4.5 % (0-10); NRBC Flagged by Analyzer 0 % (0-5); Neutrophil # 15.79 X10^3/uL (2.7-7.7); Neutrophil % 88.8 % (47-70); Platelet Count 123 K/mm3 (150-450); RBC Distribution Width SD 43.1 fl (35.1-43.9); Red Blood Count 4.08 M/mm3 (4.2-5.4); White Blood Count 17.8 K/mm3 (4.4-11.0)
[2021-07-10 05:45] LABS: ALB/GLOB Ratio 0.6 RATIO (0.9-2.4); AST(SGOT) 24 U/L (15-37); Alanine Aminotransfer ALT/SGPT 12 U/L (13-56); Albumin, Serum 2.2 g/dL (3.2-5.0); Alkaline Phosphatase 131 U/L (45-117); Anion Gap 11 (5-15); BUN 61 mg/dL (7-18); BUN/Creat Ratio 20.9 RATIO (10-20); Calcium,Total 7.5 mg/dL (8.5-10.1); Chloride 96 mmol/L (98-107); Creatinine, Serum 2.92 mg/dL (0.55-1.02); EST Glomerular Filtration Rate 17 mL/min (>60); Est Glom Filt Rate - Afr Amer 21 mL/min (>60); Estimated Creatinine Clearance 16.31 ml/min; Glucose 130 mg/dL (74-106); Potassium 4.1 mmol/L (3.5-5.1); Protein, Total 6.2 g/dL (6.4-8.2); Sodium Level 130 mmol/L (136-145)
[2021-07-10] MEDS: Enoxaparin 30 MG/0.3 ML Syringe SC (05:52)
[2021-07-10] MEDS: Propofol 10MG/Ml 1,000 MG/100 ML Bottle 12.3 MG CONT INF (05:55)
--- NOTE | 2021-07-10 07:03 | PCM.PN.INT ---
Assessment & Plan Assessment/Plan (1) COVID-19: (2) Influenza B: PLAN: RECOMMENDATIONS: 1. Continue mechanical ventilation and wean FiO2 for saturations greater than 90%. 2. No antibiotics given negative cultures 3. Continue Decadron to complete 10-day treatment course. 4. Continue prophylactic Lovenox. 5. Volume removal with dialysis per nephrology 6. Appreciate nephrology and GI recommendations 7. Decrease tube feeds to limit volume IMPRESSIONS: 1. Acute hypoxemic respiratory failure secondary to COVID-19/influenza B The patient was initially admitted to the hospital on June 27 and subsequently tested positive for both COVID-19 and influenza. The patient is vaccinated at her baseline. However, she is immunosuppressed due to a history of a liver transplant. Her oxygenation status has worsened over the course of her hospitalization. Patient subsequently agreed to intubation on 07/06/2021. She has completed her treatment course of Tamiflu. It is reasonable to continue Decadron and prophylactic Lovenox. Patient is currently afebrile, without leukocytosis or fever. Sputum culture is showing no growth at this time. Clinical suspicion for secretions secondary to influenza. Continue to monitor off antibiotics. Oxygenation continues to worsen, but I believe this is secondary to volume. Wean FiO2 for oxygen saturations greater than 90%. Volume removal with dialysis will be helpful as patient is almost 9 L positive over the course of hospitalization. Patient has been receiving hemodialysis, but cannot keep up with intakes. 2. Acute kidney injury Tolerated hemodialysis with 1.2 L removed. Likely prerenal in etiology in the setting of her acute presentation. Continue to monitor urine output. Patient does have some hyperkalemia. Await nephrology recommendations. Hopeful for dialysis later today with volume removal if possible 3. Chronic baseline immunosuppressed state secondary to liver transplantation Continue baseline outpatient immunosuppressive regimen. GI consulted yesterday. Patient has been off of CellCept. GI recommending full removal of immunosuppression. Will clarify that the health and safety coordinator has been contacted. Patient has been initiated on lactulose 4. Morbid obesity/asthma/hypothyroidism/hyperlipidemia/GERD Complicates care, management, recovery and prognosis. Continue home medications as indicated. TIME: 32 minutes of critical care time was spent addressing the patient's acute hypoxemic respiratory failure secondary to combined COVID-19 and influenza B, acute kidney injury, review of all data and collaboration with the care team. Subjective Subjective Patient did okay overnight. Patient has tolerated her tube feeds and has had a bowel movement. An FMS was placed, but has had little output. Patient's oxygenation continues to worsen and she did have to be increased to 14 of PEEP to maintain saturations on 100%. Patient did have hemodialysis yesterday with 1.2 L removed. Objective Data Objective Data Vital Signs: Vital Signs Temp Pulse Resp BP Pulse Ox 37.8 C H 97 16 117/57 L 91 07/10/21 05:00 07/10/21 06:00 07/10/21 06:00 07/10/21 06:00 07/10/21 06:00 Oxygen Flow Rate (L/min) [ 3 AMBULATING with Oxygen #1] Oxygen Flow Rate (L/min) 60 Oxygen Delivery Method Mechanical Ventilator Weight: 103.9 kg Body Mass Index (BMI) 40.8 Intake & Output: Intake and Output for Last 24 Hours 07/08/21 07/09/21 07/10/21 23:59 23:59 23:59 Intake Total 3194.95 / 3234.65 4176.26 / 4218.46 253.11 / 253.11 Output Total 595 / 595 1475 / 1475 55 / 55 Balance 2599.95 / 2639.65 2701.26 / 2743.46 198.11 / 198.11 Lab / Micro Data Result Diagrams: 07/10/21 03:45 07/10/21 03:50 Labs: Laboratory Results - last 24 hr 07/10/21 03:45: WBC 17.8 H, RBC 4.08 L, Hgb 11.6 L, Hct 34.5 L, MCV 84.6, MCH 28.4, MCHC 33.6, RDW Std Deviation 43.1, RDW Coeff of Tyrell 14.0, Plt Count 123 L, MPV 9.7, Immature Gran % (Auto) 2.400 H, Neut % (Auto) 88.8 H, Lymph % (Auto) 3.8 L, [place] % (Auto) 4.5, Eos % (Auto) 0.3, Baso % (Auto) 0.2, Absolute Neuts (auto) 15.8 H, Absolute Lymphs (auto) 0.67 L, Nucleated RBC % 0 07/10/21 03:50: Sodium 130 L, Potassium 4.1, Chloride 96 L, Carbon Dioxide 23.0, Anion Gap 11, BUN 61 H, Creatinine 2.92 H, Estim Creat Clear Calc 16.31, Est GFR (MDRD) Af Amer 21 L, Est GFR (MDRD) Non-Af 17 L, BUN/Creatinine Ratio 20.9 H, Glucose 130 H, Calcium 7.5 L, Total Bilirubin 0.40, AST 24, ALT 12 L, Alkaline Phosphatase 131 H, Total Protein 6.2 L, Albumin 2.2 L, Globulin 4.0, Albumin/Globulin Ratio 0.6 L Micro: Microbiology 07/06/21 11:20 Sputum, Induced/Lukens Gram Stain - Final 07/06/21 11:20 Sputum, Induced/Lukens Respiratory Culture - Final Culture exhibits no growth. 06/28/21 12:01 Blood Culture (Wb) - Right Hand Blood Culture - Final No growth in 5 days. 06/28/21 11:52 Blood Culture (Wb) - Left Hand Blood Culture - Final No growth in 5 days. 06/26/21 20:35 Urine, Clean Catch Streptococcus pneumoniae Antigen (M - Final 06/26/21 20:35 Urine, Clean Catch Legionella Antigen - Final 06/28/21 16:50 Mucosa - Nasopharyngeal Influenza Types A,B Direct FA (ROSEMARIE) - Final Influenzae B 06/26/21 20:35 Urine, Clean Catch Urine Culture - Final Escherichia coli ABG Data ABG results: ABG 07/09/21 08:03 Specimen Type ART Sample Site R Brach pH 7.29 L Bicarbonate Actual 24.0 Total CO2 26 Base Excess -3 L O2 Saturation 81 L O2 % 90 ABG pCO2 49.8 H ABG pO2 51 L Edgar Test Positive Respiration Rate 14 O2 Delivery Device Adult Vent Tidal Volume 450 POC PEEP 12 Clinical Comments ACVC+ Radiography Diagnostic Testing: Radiology Impression Chest X-Ray 07/08/21 15:10 IMPRESSION: The support tubes are in good position. Electronically Signed: Cachorro Fox MD at 15:28 EST , Chest X-Ray 07/09/21 06:48 IMPRESSION: No significant change in bilateral pulmonary infiltrates. Endotracheal tube, right IJ central catheter, left upper extremity PICC, and enteric tube remain. Atrial septal occlusion device redemonstrated. Electronically Signed: Kareem Vilchis MD at 7:57 EST , Physical Exam Const Constitutional Narrative: RASS -3 General Appearance: cooperative, ill appearing, intubated and patient mechanically ventilated Nutritional Appearance: morbidly obese HEENT normocephalic and head/scalp atraumatic HEENT Narrative: No additional bleeding noted around dialysis catheter Mouth: endotracheal tube in place and OG tube in place Eyes PERRL, EOMs intact bilaterally and conjunctivae normal Neck supple General: trachea midline Chest inspection of chest normal Chest: symmetrical chest wall rise; Negative for crepitus Resp Resp Narrative: Peak airway pressures in the 20s to 30s. Effort and Inspection: tachypneic Auscultation: diminished lung sounds; Negative for rales, rhonchi or wheezes Cardio regular rate, regular rhythm, no murmurs, no rub and no gallops GI normal to inspection, nondistended, normoactive bowel sounds Extremity no clubbing, cyanosis or edema Skin Skin Narrative: Some ecchymotic areas noted in abdomen after Lovenox Neuro CN's II-XII intact bilaterally, moves all extremities and no focal motor deficits Psych Mood & Affect: apathetic and flat affect Charges/Coding Procedures Hospitalists Procedures: [id number] Critial Care 1st Hr
--- NOTE | 2021-07-10 10:08 | PCM.PN.HOSP ---
Subjective Subjective Still volume overloaded and is requiring an FiO2 greater than 90% and had to increase her PEEP she only had 1.2 L removed from dialysis yesterday Objective Data Objective Data Vital Signs: Vital Signs Temp Pulse Resp BP Pulse Ox 100.4 F H 107 H 20 H 107/65 91 07/10/21 08:00 07/10/21 09:00 07/10/21 09:00 07/10/21 09:00 07/10/21 09:00 Oxygen Flow Rate (L/min) [ 3 AMBULATING with Oxygen #1] Oxygen Flow Rate (L/min) 60 Oxygen Delivery Method Mechanical Ventilator Weight: 229 lb 0.964 oz Body Mass Index (BMI) 40.8 Intake & Output: Intake and Output for Last 24 Hours 07/09/21 07/10/21 07/11/21 03:59 03:59 03:59 Intake Total 3418.77 / 3458.47 4014.19 / 4022.40 122.03 / 122.03 Output Total 595 / 595 1475 / 1475 55 / 55 Balance 2823.77 / 2863.47 2539.19 / 2547.40 67.03 / 67.03 Lab / Micro Data Result Diagrams: 07/10/21 03:45 07/10/21 03:50 Labs: Laboratory Results - last 24 hr 07/10/21 03:45: WBC 17.8 H, RBC 4.08 L, Hgb 11.6 L, Hct 34.5 L, MCV 84.6, MCH 28.4, MCHC 33.6, RDW Std Deviation 43.1, RDW Coeff of Tyrell 14.0, Plt Count 123 L, MPV 9.7, Immature Gran % (Auto) 2.400 H, Neut % (Auto) 88.8 H, Lymph % (Auto) 3.8 L, [place] % (Auto) 4.5, Eos % (Auto) 0.3, Baso % (Auto) 0.2, Absolute Neuts (auto) 15.8 H, Absolute Lymphs (auto) 0.67 L, Nucleated RBC % 0 07/10/21 03:50: Sodium 130 L, Potassium 4.1, Chloride 96 L, Carbon Dioxide 23.0, Anion Gap 11, BUN 61 H, Creatinine 2.92 H, Estim Creat Clear Calc 16.31, Est GFR (MDRD) Af Amer 21 L, Est GFR (MDRD) Non-Af 17 L, BUN/Creatinine Ratio 20.9 H, Glucose 130 H, Calcium 7.5 L, Total Bilirubin 0.40, AST 24, ALT 12 L, Alkaline Phosphatase 131 H, Total Protein 6.2 L, Albumin 2.2 L, Globulin 4.0, Albumin/Globulin Ratio 0.6 L Micro: Microbiology 07/06/21 11:20 Sputum, Induced/Lukens Gram Stain - Final 07/06/21 11:20 Sputum, Induced/Lukens Respiratory Culture - Final Culture exhibits no growth. 06/28/21 12:01 Blood Culture (Wb) - Right Hand Blood Culture - Final No growth in 5 days. 06/28/21 11:52 Blood Culture (Wb) - Left Hand Blood Culture - Final No growth in 5 days. 06/26/21 20:35 Urine, Clean Catch Streptococcus pneumoniae Antigen (M - Final 06/26/21 20:35 Urine, Clean Catch Legionella Antigen - Final 06/28/21 16:50 Mucosa - Nasopharyngeal Influenza Types A,B Direct FA (ROSEMARIE) - Final Influenzae B 06/26/21 20:35 Urine, Clean Catch Urine Culture - Final Escherichia coli Physical Exam Narrative Const General Appearance: intubated and patient mechanically ventilated HEENT normocephalic and moist oral mucous membranes Eyes PERRL and conjunctivae normal Neck supple and no JVD Resp normal respiratory effort, no retractions and no use of accessory muscles Auscultation: diminished lung sounds; Negative for crackles, rales, rhonchi or wheezes Cardio regular rate, regular rhythm, S1 normal heart sound, S2 normal heart sound and no murmurs GI soft to palpation and non-distended; Negative for hepatosplenomegaly Extremity no clubbing, cyanosis or edema Skin no rashes or lesions noted Neuro Sensorium / Orientation: sedated on vent Psych Appearance: intubated Assessment & Plan Assessment/Plan (1) Acute respiratory failure with hypoxia: (2) Influenza B: (3) COVID-19: (4) OPAL (acute kidney injury): (5) Hyperkalemia: PLAN: 1. Acute hypoxic respiratory failure secondary to influenza B and COVID-19/OPAL on CKD 3a/history of asthma -Patient required intubation on 07/06/2021 -Has been sick for approximately 3 weeks prior to admission, therefore did not qualify for remdesivir ?Did complete Decadron for 10 days, however we will continue given her continued challenges while on the vent. She did complete a course of Tamiflu -Was vaccinated and boosted however was immunocompromised with CellCept, tacrolimus, and prednisone -Not a baricitinib candidate secondary to liver transplant -Pulmonary medicine following-appreciate input -ID following-appreciate input ?Renal function is worsening, 1.2 L removed with dialysis yesterday hopefully they can attempt and remove more today 2. Autoimmune hepatitis status post liver transplant ?Appreciate gastroenterology's input ?Continue with rifaximin steroid ?Still on tacrolimus, level is pending 3. Hypothyroidism ?Stable ?Continue with Synthroid 4. GERD ?Stable ?Continue with PPI 5. HLD/obesity ?Continue with statin ?Her BMI of 38.8 complicates care DVT: Lovenox Charges/Coding Visit Charges Inpatient E&M: 94287 Subs Hosp L2
[2021-07-10] MEDS: Ursodiol 250 MG Tablet PO ×2 (11:28→20:20)
[2021-07-10] MEDS: Lactulose 20 GM/30 ML UDC PO ×2 (11:28→20:20)
[2021-07-10] MEDS: Aspirin E.C. 81 MG Tablet PO (11:29)
[2021-07-10] MEDS: Senna/Docusate Sodium 1 Tablet PO ×2 (11:29→20:20)
[2021-07-10] MEDS: Calcium (Elemental) 500 MG Tablet PO ×3 (11:29→20:20)
[2021-07-10] MEDS: Smz/Tmp Ds Tablet 1 TABLET PO (11:29)
[2021-07-10] MEDS: Ascorbic Acid 500 MG Tablet PO ×2 (11:29→17:27)
[2021-07-10] MEDS: Polyethylene Glycol 3350 17 GM PACKET GT (11:29)
[2021-07-10] MEDS: Levothyroxine 88 MCG Tablet PO (11:29)
[2021-07-10] MEDS: dexAMETHasone 10 MG/ML Vial 6 MG IV (11:30)
[2021-07-10] MEDS: Ferrous Gluconate 324 MG Tablet PO (11:30)
[2021-07-10] MEDS: Cholecalciferol (VIT D3) 25 MCG TABLET (1,000 UNITS) 50 MCG PO (11:30)
[2021-07-10] MEDS: Tacrolimus Anhydrous 1 MG Capsule 2 MG PO ×2 (11:30→20:26)
[2021-07-10] MEDS: Tacrolimus 0.5 MG Capsule PO ×2 (11:30→20:27)
[2021-07-10] MEDS: rifAXIMin 550 MG Tablet PO ×2 (11:30→20:21)
--- NOTE | 2021-07-10 13:05 | PN.RENAL_ITS ---
Subjective Subjective remains intubated high FiO2 and PEEP Objective Data Objective Data Vital Signs: Vital Signs Temp Pulse Resp BP Pulse Ox 100.6 F H 114 H 26 H 120/72 94 07/10/21 12:00 07/10/21 12:00 07/10/21 12:00 07/10/21 12:00 07/10/21 12:00 Oxygen Flow Rate (L/min) [ 3 AMBULATING with Oxygen #1] Oxygen Flow Rate (L/min) 60 Oxygen Delivery Method Mechanical Ventilator Weight: 103.9 kg Body Mass Index (BMI) 40.8 Intake & Output: Intake and Output for Last 24 Hours 07/08/21 07/09/21 07/10/21 23:59 23:59 23:59 Intake Total 3194.95 / 3234.65 4176.26 / 4218.46 689.68 / 689.68 Output Total 595 / 595 1475 / 1475 105 / 105 Balance 2599.95 / 2639.65 2701.26 / 2743.46 584.68 / 584.68 Lab / Micro Data Result Diagrams: 07/10/21 03:45 07/10/21 03:50 Labs: Laboratory Results - last 24 hr 07/10/21 03:45: WBC 17.8 H, RBC 4.08 L, Hgb 11.6 L, Hct 34.5 L, MCV 84.6, MCH 28.4, MCHC 33.6, RDW Std Deviation 43.1, RDW Coeff of Tyrell 14.0, Plt Count 123 L, MPV 9.7, Immature Gran % (Auto) 2.400 H, Neut % (Auto) 88.8 H, Lymph % (Auto) 3.8 L, [place] % (Auto) 4.5, Eos % (Auto) 0.3, Baso % (Auto) 0.2, Absolute Neuts (auto) 15.8 H, Absolute Lymphs (auto) 0.67 L, Nucleated RBC % 0 07/10/21 03:50: Sodium 130 L, Potassium 4.1, Chloride 96 L, Carbon Dioxide 23.0, Anion Gap 11, BUN 61 H, Creatinine 2.92 H, Estim Creat Clear Calc 16.31, Est GFR (MDRD) Af Amer 21 L, Est GFR (MDRD) Non-Af 17 L, BUN/Creatinine Ratio 20.9 H, Glucose 130 H, Calcium 7.5 L, Total Bilirubin 0.40, AST 24, ALT 12 L, Alkaline Phosphatase 131 H, Total Protein 6.2 L, Albumin 2.2 L, Globulin 4.0, Albumin/Globulin Ratio 0.6 L Micro: Microbiology 07/06/21 11:20 Sputum, Induced/Lukens Gram Stain - Final 07/06/21 11:20 Sputum, Induced/Lukens Respiratory Culture - Final Culture exhibits no growth. 06/28/21 12:01 Blood Culture (Wb) - Right Hand Blood Culture - Final No growth in 5 days. 06/28/21 11:52 Blood Culture (Wb) - Left Hand Blood Culture - Final No growth in 5 days. 06/26/21 20:35 Urine, Clean Catch Streptococcus pneumoniae Antigen (M - Final 06/26/21 20:35 Urine, Clean Catch Legionella Antigen - Final 06/28/21 16:50 Mucosa - Nasopharyngeal Influenza Types A,B Direct FA (ROSEMARIE) - Final Influenzae B 06/26/21 20:35 Urine, Clean Catch Urine Culture - Final Escherichia coli Physical Exam Narrative Minimal exam due to Covid pneumonia Intubated Sedated Richardson catheter No significant edema No cyanosis Assessment & Plan Assessment/Plan (1) OPAL (acute kidney injury): PLAN: Creatinine was close to baseline at 1.4. Worsening over the last 4 days. No hydronephrosis. Urine sodium is low but she has significant high oxygen and PEEP requirements. HD initiated. labs better. UF today (2) Chronic kidney disease, stage 3a: (3) Immunosuppressed status: PLAN: On tacrolimus, CellCept, prednisone. CellCept is on hold as per transplant team recs. Currently tacrolimus is going through the G-tube.
[2021-07-10] MEDS: Chlorhexidine 15 ML PO ×2 (14:40→20:16)
[2021-07-10] MEDS: Propofol 10MG/Ml 1,000 MG/100 ML Bottle 9.3 MG CONT INF (14:53)
--- NOTE | 2021-07-10 16:05 | PN_ITS ---
Subjective Subjective The patient is still intubated and sedated. All information was taken from nursing. She is requiring more PEEP and more oxygenation with ventilatory support. Objective Data Objective Data Vital Signs: Vital Signs Temp Pulse Resp BP Pulse Ox 100.6 F H 116 H 30 H 140/70 H 95 07/10/21 12:00 07/10/21 15:00 07/10/21 15:00 07/10/21 15:00 07/10/21 15:00 Oxygen Flow Rate (L/min) [ 3 AMBULATING with Oxygen #1] Oxygen Flow Rate (L/min) 60 Oxygen Delivery Method Mechanical Ventilator Weight: 229 lb 0.964 oz Body Mass Index (BMI) 40.8 Intake & Output: Intake and Output for Last 24 Hours 07/08/21 07/09/21 07/10/21 23:59 23:59 23:59 Intake Total 3194.95 / 3234.65 4176.26 / 4218.46 740.60 / 740.60 Output Total 595 / 595 1475 / 1475 105 / 105 Balance 2599.95 / 2639.65 2701.26 / 2743.46 635.60 / 635.60 Lab / Micro Data Result Diagrams: 07/10/21 03:45 07/10/21 03:50 Labs: Laboratory Results - last 24 hr 07/03/21 04:12: Tacrolimus Cancelled, Tacrolimus Comment Cancelled 07/10/21 03:45: WBC 17.8 H, RBC 4.08 L, Hgb 11.6 L, Hct 34.5 L, MCV 84.6, MCH 28.4, MCHC 33.6, RDW Std Deviation 43.1, RDW Coeff of Tyrell 14.0, Plt Count 123 L, MPV 9.7, Immature Gran % (Auto) 2.400 H, Neut % (Auto) 88.8 H, Lymph % (Auto) 3.8 L, [place] % (Auto) 4.5, Eos % (Auto) 0.3, Baso % (Auto) 0.2, Absolute Neuts (auto) 15.8 H, Absolute Lymphs (auto) 0.67 L, Nucleated RBC % 0 07/10/21 03:50: Sodium 130 L, Potassium 4.1, Chloride 96 L, Carbon Dioxide 23.0, Anion Gap 11, BUN 61 H, Creatinine 2.92 H, Estim Creat Clear Calc 16.31, Est GFR (MDRD) Af Amer 21 L, Est GFR (MDRD) Non-Af 17 L, BUN/Creatinine Ratio 20.9 H, Glucose 130 H, Calcium 7.5 L, Total Bilirubin 0.40, AST 24, ALT 12 L, Alkaline Phosphatase 131 H, Total Protein 6.2 L, Albumin 2.2 L, Globulin 4.0, Albumin/Gl obulin Ratio 0.6 L Micro: Microbiology 07/06/21 11:20 Sputum, Induced/Lukens Gram Stain - Final 07/06/21 11:20 Sputum, Induced/Lukens Respiratory Culture - Final Culture exhibits no growth. 06/28/21 12:01 Blood Culture (Wb) - Right Hand Blood Culture - Final No growth in 5 days. 06/28/21 11:52 Blood Culture (Wb) - Left Hand Blood Culture - Final No growth in 5 days. 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 Currently on only tacrolimus and IV Decadron. Awaiting tacrolimus levels. As per transplant team they are recommending to maintain tacrolimus at current dosage. LFTs and liver enzymes have been stable except for mildly elevated alkaline phosphatase. Coagulation profile has been normal. She is getting hemodialysis for acute kidney injury in the setting of chronic renal failure likely secondary to tacrolimus. Hopefully will be able to get the levels so we can see if there is any sign of toxicity secondary to tacrolimus. Continue hemodialysis as per nephrology. Guarded prognosis. Charges/Coding Visit Charges Inpatient E&M: 29907 Subs Hosp L2
--- NOTE | 2021-07-10 16:21 | DIALYSIS ---
Hemodialysis IUF only today. UF-1000mL removed. Pt stable and tolerated tx fairly well. Report to EDWARD Ferguson.
[2021-07-10] MEDS: Propofol 10MG/Ml 1,000 MG/100 ML Bottle 6.2 MG CONT INF (20:05)
[2021-07-10] MEDS: Atorvastatin Calcium 10 MG Tablet PO (20:20)
[2021-07-11] VITALS (36 sets, daily range): BP systolic 89–192; BP diastolic 57–93; PULSE 95–124; RESP 17–285; TEMP 37.3–38.9; O2SAT 88–94
[2021-07-11] MEDS: guaiFENesin 10 ML UDC (200MG/10ML) 20 ML GT ×4 (00:23→17:30)
[2021-07-11] MEDS: Propofol 10MG/Ml 1,000 MG/100 ML Bottle 9.3 MG CONT INF (02:42)
[2021-07-11] MEDS: Enoxaparin 30 MG/0.3 ML Syringe SC (04:14)
[2021-07-11 04:38] LABS: Absolute Lymphocyte Count 0.56 X10^3/uL (0.83-4.51); Absolute Neutrophil Count 21.1 X10^3/uL (2.0-7.7); Basophil# 0.02 X10^3/uL; Basophil% 0.1 % (0-1); Hemoglobin 11.2 g/dL (12.0-15.0); Lymphocyte # 0.56 X10^3/ul (0.83-4.51); Lymphocyte % 2.4 % (19-41); Mean Corp Hgb Conc 32.9 g/dL (32-36); Mean Corpuscular Hgb 27.5 pg (27.0-32.0); Mean Corpuscular Volume 83.5 fL (81-99); Mean Platelet Vol. 10.1 fl (6.2-12.0); Monocyte# 1.05 X10^3/uL; Monocyte% 4.5 % (0-10); NRBC Flagged by Analyzer 0.1 % (0-5); Neutrophil # 21.07 X10^3/uL (2.7-7.7); Neutrophil % 91.1 % (47-70); POSITIVE DIFFERENTIAL YES; Platelet Count 156 K/mm3 (150-450); RBC Distribution Width CV 14.3 % (11.6-14.6); RBC Distribution Width SD 43.1 fl (35.1-43.9); Red Blood Count 4.07 M/mm3 (4.2-5.4); White Blood Count 23.1 K/mm3 (4.4-11.0)
[2021-07-11 04:43] LABS: Differential Indicated SCAN CRITERIA MET
[2021-07-11 04:53] LABS: Differential Comment SCANNED
[2021-07-11 04:55] LABS: ALB/GLOB Ratio 0.5 RATIO (0.9-2.4); AST(SGOT) 20 U/L (15-37); Alanine Aminotransfer ALT/SGPT 14 U/L (13-56); Albumin, Serum 2.1 g/dL (3.2-5.0); Alkaline Phosphatase 132 U/L (45-117); Anion Gap 12 (5-15); BUN 85 mg/dL (7-18); BUN/Creat Ratio 20.6 RATIO (10-20); Calcium,Total 8.4 mg/dL (8.5-10.1); Chloride 95 mmol/L (98-107); Creatinine, Serum 4.12 mg/dL (0.55-1.02); EST Glomerular Filtration Rate 12 mL/min (>60); Est Glom Filt Rate - Afr Amer 14 mL/min (>60); Estimated Creatinine Clearance 11.56 ml/min; Globulin 4.4 g/dL (2.2-4.2); Glucose 115 mg/dL (74-106); Potassium 4.9 mmol/L (3.5-5.1); Protein, Total 6.5 g/dL (6.4-8.2); Sodium Level 129 mmol/L (136-145)
--- NOTE | 2021-07-11 06:50 | PCM.PN.INT ---
Assessment & Plan Assessment/Plan (1) COVID-19: (2) Influenza B: PLAN: RECOMMENDATIONS: 1. Continue mechanical ventilation and wean FiO2 for saturations greater than 90%. 2. No antibiotics given negative cultures, but may reculture with fever given increased leukocytosis 3. Continue Decadron to complete 10-day treatment course. 4. Continue prophylactic Lovenox. 5. Volume removal with dialysis per nephrology 6. Appreciate nephrology and GI recommendations 7. Continue decreased tube feeds to limit volume IMPRESSIONS: 1. Acute hypoxemic respiratory failure secondary to COVID-19/influenza B The patient was initially admitted to the hospital on June 27 and subsequently tested positive for both COVID-19 and influenza. The patient is vaccinated at her baseline. However, she is immunosuppressed due to a history of a liver transplant. Her oxygenation status has worsened over the course of her hospitalization. Patient subsequently agreed to intubation on 07/06/2021. She has completed her treatment course of Tamiflu. It is reasonable to continue Decadron and prophylactic Lovenox. Patient did have a mild fever overnight with increase in leukocytosis. May repeat cultures if fever recurs. Patient would benefit from volume removal. Attempt to minimize intake 2. Acute kidney injury Tolerated hemodialysis with 1 L removed. Patient would benefit from ultrafiltration in my opinion. Likely prerenal in etiology in the setting of her acute presentation. Continue to monitor urine output. Patient does have some hyperkalemia. Await nephrology recommendations. Hopeful for dialysis later today with volume removal if possible 3. Chronic baseline immunosuppressed state secondary to liver transplantation Continue baseline outpatient immunosuppressive regimen. GI consulted. Patient has been off of CellCept. GI recommending full removal of immunosuppression. Will clarify that the service center coordinator has been contacted. Patient has been initiated on lactulose. Continuing Decadron to help with immunosuppression past the normal 10 days for COVID-19 4. Morbid obesity/asthma/hypothyroidism/hyperlipidemia/GERD Complicates care, management, recovery and prognosis. Continue home medications as indicated. TIME: 34 minutes of critical care time was spent addressing the patient's acute hypoxemic respiratory failure secondary to combined COVID-19 and influenza B, acute kidney injury, review of all data and collaboration with the care team. Subjective Subjective Patient did okay overnight from a hemodynamic standpoint. Patient did tolerate hemodialysis yesterday with 1 L removed. Unfortunately, patient remained positive despite decreased tube feeds. Mild fever noted. Objective Data Objective Data Vital Signs: Vital Signs Temp Pulse Resp BP Pulse Ox 37.5 C H 99 22 H 126/61 H 91 07/11/21 06:00 07/11/21 06:00 07/11/21 06:33 07/11/21 06:00 07/11/21 06:33 Oxygen Flow Rate (L/min) [ 3 AMBULATING with Oxygen #1] Oxygen Flow Rate (L/min) 100 Oxygen Delivery Method Mechanical Ventilator Weight: 103.9 kg Body Mass Index (BMI) 40.8 Intake & Output: Intake and Output for Last 24 Hours 07/09/21 07/10/21 07/11/21 23:59 23:59 23:59 Intake Total 4176.26 / 4218.46 1633.73 / 1646.81 435.55 / 435.55 Output Total 1475 / 1475 1165 / 1245 155 / 155 Balance 2701.26 / 2743.46 468.73 / 401.81 280.55 / 280.55 Lab / Micro Data Result Diagrams: 07/11/21 04:20 07/11/21 04:20 Labs: Laboratory Results - last 24 hr 07/03/21 04:12: Tacrolimus Cancelled, Tacrolimus Comment Cancelled 07/11/21 04:20: WBC 23.1 H, RBC 4.07 L, Hgb 11.2 L, Hct 34.0 L, MCV 83.5, MCH 27.5, MCHC 32.9, RDW Std Deviation 43.1, RDW Coeff of Tyrell 14.3, Plt Count 156, MPV 10.1, Immature Gran % (Auto) 1.900 H, Neut % (Auto) 91.1 H, Lymph % (Auto) 2.4 L, [place] % (Auto) 4.5, Eos % (Auto) 0.0, Baso % (Auto) 0.1, Absolute Neuts (auto) 21.1 H, Absolute Lymphs (auto) 0.56 L, Nucleated RBC % 0.1, Differential Comment SCANNED 07/11/21 04:20: Sodium 129 L, Potassium 4.9, Chloride 95 L, Carbon Dioxide 22.0, Anion Gap 12, BUN 85 H, Creatinine 4.12 H, Estim Creat Clear Calc 11.56, Est GFR (MDRD) Af Amer 14 L, Est GFR (MDRD) Non-Af 12 L, BUN/Creatinine Ratio 20.6 H, Glucose 115 H, Calcium 8.4 L, Total Bilirubin 0.50, AST 20, ALT 14, Alkaline Phosphatase 132 H, Total Protein 6.5, Albumin 2.1 L, Globulin 4.4 H, Albumin/Globulin Ratio 0.5 L Micro: Microbiology 07/06/21 11:20 Sputum, Induced/Lukens Gram Stain - Final 07/06/21 11:20 Sputum, Induced/Lukens Respiratory Culture - Final Culture exhibits no growth. 06/28/21 12:01 Blood Culture (Wb) - Right Hand Blood Culture - Final No growth in 5 days. 06/28/21 11:52 Blood Culture (Wb) - Left Hand Blood Culture - Final No growth in 5 days. 06/26/21 20:35 Urine, Clean Catch Streptococcus pneumoniae Antigen (M - Final 06/26/21 20:35 Urine, Clean Catch Legionella Antigen - Final 06/28/21 16:50 Mucosa - Nasopharyngeal Influenza Types A,B Direct FA (ROSEMARIE) - Final Influenzae B 06/26/21 20:35 Urine, Clean Catch Urine Culture - Final Escherichia coli Physical Exam Const Constitutional Narrative: RASS -3 General Appearance: cooperative, ill appearing, intubated and patient mechanically ventilated Nutritional Appearance: morbidly obese HEENT normocephalic and head/scalp atraumatic HEENT Narrative: No additional bleeding noted around dialysis catheter. Pressure dressing at the site Mouth: endotracheal tube in place and OG tube in place Eyes PERRL, EOMs intact bilaterally and conjunctivae normal Neck supple General: trachea midline Chest inspection of chest normal Chest: symmetrical chest wall rise; Negative for crepitus Resp Resp Narrative: Peak airway pressures in the 30s. Effort and Inspection: tachypneic Auscultation: diminished lung sounds; Negative for rales, rhonchi or wheezes Cardio regular rate, regular rhythm, no murmurs, no rub and no gallops GI normal to inspection, nondistended, normoactive bowel sounds Extremity no clubbing, cyanosis or edema Skin Skin Narrative: Some ecchymotic areas noted in abdomen after Lovenox Neuro CN's II-XII intact bilaterally, moves all extremities and no focal motor deficits Psych Mood & Affect: apathetic and flat affect Charges/Coding Procedures Hospitalists Procedures: 44749 Critial Care 1st Hr
--- NOTE | 2021-07-11 11:58 | PCM.PN.HOSP ---
Subjective Subjective No issues overnight she only had 1 L removed of fluid yesterday. She is still very fluid positive and will undergo dialysis again today Objective Data Objective Data Vital Signs: Vital Signs Temp Pulse Resp BP Pulse Ox 99.2 F H 99 39 H 89/65 L 88 07/11/21 08:00 07/11/21 11:00 07/11/21 11:00 07/11/21 11:00 07/11/21 11:00 Oxygen Flow Rate (L/min) [ 3 AMBULATING with Oxygen #1] Oxygen Flow Rate (L/min) 100 Oxygen Delivery Method Mechanical Ventilator Weight: 229 lb 0.964 oz Body Mass Index (BMI) 40.8 Intake & Output: Intake and Output for Last 24 Hours 07/10/21 07/11/21 07/12/21 03:59 03:59 03:59 Intake Total 4014.19 / 4022.40 1538.65 / 1560.45 438.61 / 438.61 Output Total 1475 / 1475 1245 / 1245 75 / 75 Balance 2539.19 / 2547.40 293.65 / 315.45 363.61 / 363.61 Lab / Micro Data Result Diagrams: 07/11/21 04:20 07/11/21 04:20 Labs: Laboratory Results - last 24 hr 07/03/21 04:12: Tacrolimus Cancelled, Tacrolimus Comment Cancelled 07/11/21 04:20: WBC 23.1 H, RBC 4.07 L, Hgb 11.2 L, Hct 34.0 L, MCV 83.5, MCH 27.5, MCHC 32.9, RDW Std Deviation 43.1, RDW Coeff of Tyrell 14.3, Plt Count 156, MPV 10.1, Immature Gran % (Auto) 1.900 H, Neut % (Auto) 91.1 H, Lymph % (Auto) 2.4 L, [place] % (Auto) 4.5, Eos % (Auto) 0.0, Baso % (Auto) 0.1, Absolute Neuts (auto) 21.1 H, Absolute Lymphs (auto) 0.56 L, Nucleated RBC % 0.1, Differential Comment SCANNED 07/11/21 04:20: Sodium 129 L, Potassium 4.9, Chloride 95 L, Carbon Dioxide 22.0, Anion Gap 12, BUN 85 H, Creatinine 4.12 H, Estim Creat Clear Calc 11.56, Est GFR (MDRD) Af Amer 14 L, Est GFR (MDRD) Non-Af 12 L, BUN/Creatinine Ratio 20.6 H, Glucose 115 H, Calcium 8.4 L, Total Bilirubin 0.50, AST 20, ALT 14, Alkaline Phosphatase 132 H, Total Protein 6.5, Albumin 2.1 L, Globulin 4.4 H, Albumin/Globulin Ratio 0.5 L Micro: Microbiology 07/06/21 11:20 Sputum, Induced/Lukens Gram Stain - Final 07/06/21 11:20 Sputum, Induced/Lukens Respiratory Culture - Final Culture exhibits no growth. 06/28/21 12:01 Blood Culture (Wb) - Right Hand Blood Culture - Final No growth in 5 days. 06/28/21 11:52 Blood Culture (Wb) - Left Hand Blood Culture - Final No growth in 5 days. 06/26/21 20:35 Urine, Clean Catch Streptococcus pneumoniae Antigen (M - Final 06/26/21 20:35 Urine, Clean Catch Legionella Antigen - Final 06/28/21 16:50 Mucosa - Nasopharyngeal Influenza Types A,B Direct FA (ROSEMARIE) - Final Influenzae B 06/26/21 20:35 Urine, Clean Catch Urine Culture - Final Escherichia coli Physical Exam Narrative Const General Appearance: intubated and patient mechanically ventilated HEENT normocephalic and moist oral mucous membranes Eyes PERRL and conjunctivae normal Neck supple and no JVD Resp normal respiratory effort, no retractions and no use of accessory muscles Auscultation: diminished lung sounds; Negative for crackles, rales, rhonchi or wheezes Cardio regular rate, regular rhythm, S1 normal heart sound, S2 normal heart sound and no murmurs GI soft to palpation and non-distended; Negative for hepatosplenomegaly Extremity no clubbing, cyanosis or edema Skin no rashes or lesions noted Neuro Sensorium / Orientation: sedated on vent Psych Appearance: intubated Assessment & Plan Assessment/Plan (1) Acute respiratory failure with hypoxia: (2) Influenza B: (3) COVID-19: (4) OPAL (acute kidney injury): (5) Hyperkalemia: PLAN: 1. Acute hypoxic respiratory failure secondary to influenza B and COVID-19/OPAL on CKD 3a/history of asthma -Patient required intubation on 07/06/2021 -Has been sick for approximately 3 weeks prior to admission, therefore did not qualify for remdesivir ?Did complete Decadron for 10 days, however we will continue given her continued challenges while on the vent. She did complete a course of Tamiflu -Was vaccinated and boosted however was immunocompromised with CellCept, tacrolimus, and prednisone -Not a baricitinib candidate secondary to liver transplant -Pulmonary medicine following-appreciate input -ID following-appreciate input ?Renal function is worsening, 1 L removed with dialysis yesterday hopefully they can attempt and remove more today 2. Autoimmune hepatitis status post liver transplant ?Appreciate gastroenterology's input ?Continue with rifaximin steroid ?Still on tacrolimus, level is pending unfortunately the first sample was never actually sent for testing 3. Hypothyroidism ?Stable ?Continue with Synthroid 4. GERD ?Stable ?Continue with PPI 5. HLD/obesity ?Continue with statin ?Her BMI of 38.8 complicates care DVT: Lovenox Charges/Coding Visit Charges Inpatient E&M: 47180 Subs Hosp L2
--- NOTE | 2021-07-11 12:26 | DIALYSIS ---
Hemodialysis x4 hours completed at 1205 on a 2K bath, tolerated fair, UF 2000mL, SBP 80s-90s, MAP >65, accessed via right neck temporary dialysis catheter, worked well with lines reversed due to sticky pull arterial port
[2021-07-11] MEDS: Polyethylene Glycol 3350 17 GM PACKET GT (12:54)
[2021-07-11] MEDS: Senna/Docusate Sodium 1 Tablet PO ×2 (12:54→20:52)
[2021-07-11] MEDS: Calcium (Elemental) 500 MG Tablet PO ×2 (12:54→20:51)
[2021-07-11] MEDS: Aspirin E.C. 81 MG Tablet PO (12:54)
[2021-07-11] MEDS: Ursodiol 250 MG Tablet PO ×2 (12:54→20:52)
[2021-07-11] MEDS: Levothyroxine 88 MCG Tablet PO (12:55)
[2021-07-11] MEDS: Cholecalciferol (VIT D3) 25 MCG TABLET (1,000 UNITS) 50 MCG PO (12:55)
[2021-07-11] MEDS: Ascorbic Acid 500 MG Tablet PO ×2 (12:55→17:30)
[2021-07-11] MEDS: Tacrolimus 0.5 MG Capsule PO ×2 (12:55→20:52)
[2021-07-11] MEDS: Tacrolimus Anhydrous 1 MG Capsule 2 MG PO ×2 (12:55→20:50)
[2021-07-11] MEDS: dexAMETHasone 10 MG/ML Vial 6 MG IV (12:56)
[2021-07-11] MEDS: rifAXIMin 550 MG Tablet PO ×2 (12:56→20:51)
[2021-07-11] MEDS: Lactulose 20 GM/30 ML UDC PO ×2 (12:56→20:50)
[2021-07-11] MEDS: Propofol 10MG/Ml 1,000 MG/100 ML Bottle 3.1 MG CONT INF (14:28)
[2021-07-11] MEDS: Vital AF 1.2 Cal Liquid 1,000 ML 10 ML GT (14:29)
[2021-07-11] MEDS: Chlorhexidine 15 ML PO ×2 (14:29→20:52)
[2021-07-11] MEDS: Acetaminophen 650 MG/20 ML UDC GT (15:27)
[2021-07-11] MEDS: Menthol/Lanolin/Calamine/Znox 113 GM Tube 1 APPLIC TOPICAL (20:49)
[2021-07-11] MEDS: Atorvastatin Calcium 10 MG Tablet PO (20:53)
[2021-07-12] VITALS (33 sets, daily range): BP systolic 95–179; BP diastolic 60–91; PULSE 100–118; RESP 18–214; TEMP 38.2–39.1; O2SAT 88–97
[2021-07-12] MEDS: guaiFENesin 10 ML UDC (200MG/10ML) 20 ML GT ×4 (00:07→21:25)
[2021-07-12] MEDS: Enoxaparin 30 MG/0.3 ML Syringe SC (04:26)
[2021-07-12 04:50] LABS: ALB/GLOB Ratio 0.5 RATIO (0.9-2.4); AST(SGOT) 19 U/L (15-37); Alanine Aminotransfer ALT/SGPT 14 U/L (13-56); Albumin, Serum 2.2 g/dL (3.2-5.0); Alkaline Phosphatase 122 U/L (45-117); Anion Gap 12 (5-15); BUN 61 mg/dL (7-18); BUN/Creat Ratio 16.4 RATIO (10-20); Calcium,Total 8.5 mg/dL (8.5-10.1); Chloride 91 mmol/L (98-107); Creatinine, Serum 3.73 mg/dL (0.55-1.02); EST Glomerular Filtration Rate 13 mL/min (>60); Est Glom Filt Rate - Afr Amer 16 mL/min (>60); Estimated Creatinine Clearance 12.77 ml/min; Globulin 4.7 g/dL (2.2-4.2); Glucose 162 mg/dL (74-106); Potassium 4.8 mmol/L (3.5-5.1); Protein, Total 6.9 g/dL (6.4-8.2); Sodium Level 129 mmol/L (136-145)
--- NOTE | 2021-07-12 06:31 | PN.CC_ITS ---
Assessment & Plan Assessment/Plan (1) COVID-19: (2) Influenza B: PLAN: RECOMMENDATIONS: 1. Continue mechanical ventilation and wean FiO2 for saturations greater than 90%. 2. Initiate empiric antibiotics 3. Check LFTs tomorrow to evaluate for possible rejection 4. Continue prophylactic Lovenox. 5. Volume removal with dialysis per nephrology 6. Appreciate nephrology and GI recommendations 7. Continue decreased tube feeds to limit volume IMPRESSIONS: 1. Acute hypoxemic respiratory failure secondary to COVID-19/influenza B The patient was initially admitted to the hospital on June 27 and subsequently tested positive for both COVID-19 and influenza. The patient is vaccinated at her baseline. However, she is immunosuppressed due to a history of a liver transplant. Her oxygenation status has worsened over the course of her hospitalization. Patient subsequently agreed to intubation on 07/06/2021. She has completed her treatment course of Tamiflu. It is reasonable to continue Decadron and prophylactic Lovenox. Patient with worsening fever over the last 24 hours. Repeat cultures from yesterday are currently pending. Will initiate patient on meropenem and vancomycin as she will be at risk for staph aureus and gram-negatives. Patient has had some increased peak airway pressures 2. Acute kidney injury Tolerated hemodialysis with 2 L removed. Patient would benefit from ultrafiltration in my opinion. Likely prerenal in etiology in the setting of her acute presentation. Continue to monitor urine output. Patient does have some hyperkalemia. Await nephrology recommendations. Hopeful for dialysis later today with volume removal if possible 3. Chronic baseline immunosuppressed state secondary to liver transplantation Continue baseline outpatient immunosuppressive regimen. GI consulted. Patient has been off of CellCept. GI recommending full removal of immunosuppression. Will clarify that the data coordinator has been con tacted. Patient has been initiated on lactulose. Continuing Decadron to help with immunosuppression past the normal 10 days for COVID-19. Await G.I. recommendations and tacrolimus level. 4. Morbid obesity/asthma/hypothyroidism/hyperlipidemia/GERD Complicates care, management, recovery and prognosis. Continue home medications as indicated. Poor overall prognosis. TIME: 38 minutes of critical care time was spent addressing the patient's acute hypoxemic respiratory failure secondary to combined COVID-19 and influenza B, ac [place] kidney injury, review of all data and collaboration with the care team. Subjective Subjective Patient has done okay from a hemodynamic standpoint. Patient has been persistently febrile overnight and pain cultures were sent yesterday. Oxygenation has not changed, but patient is having worse mental symphony associated with fever. Patient did have hemodialysis yesterday with 2 L removed, but weight has remained stable. Patient is not following commands and remains on fentanyl only. Objective Data Objective Data Vital Signs: Vital Signs Temp Pulse Resp BP Pulse Ox 38.8 C H 118 H 25 H 165/91 H 90 07/12/21 04:00 07/12/21 04:00 07/12/21 04:00 07/12/21 04:00 07/12/21 04:00 Oxygen Flow Rate (L/min) [ 3 AMBULATING with Oxygen #1] Oxygen Flow Rate (L/min) 100 Oxygen Delivery Method Mechanical Ventilator Weight: 101.1 kg Body Mass Index (BMI) 40.8 Intake & Output: Intake and Output for Last 24 Hours 07/10/21 07/11/21 07/12/21 23:59 23:59 23:59 Intake Total 1633.73 / 1646.81 1375.63 / 1483.13 353.54 / 353.54 Output Total 1165 / 1245 2195 / 2195 245 / 245 Balance 468.73 / 401.81 -819.37 / -711.87 108.54 / 108.54 Lab / Micro Data Result Diagrams: 07/11/21 04:20 07/12/21 04:15 Labs: Laboratory Results - last 24 hr 07/12/21 04:15: Sodium 129 L, Potassium 4.8, Chloride 91 L, Carbon Dioxide 26.0, Anion Gap 12, BUN 61 H, Creatinine 3.73 H, Estim Creat Clear Calc 12.77, Est GFR (MDRD) Af Amer 16 L, Est GFR (MDRD) Non-Af 13 L, BUN/Creatinine Ratio 16.4, Glucose 162 H, Calcium 8.5, Total Bilirubin 0.50, AST 19, ALT 14, Alkaline Phosphatase 122 H, Total Protein 6.9, Albumin 2.2 L, Globulin 4.7 H, Albumin/Globulin Ratio 0.5 L Micro: Microbiology 07/06/21 11:20 Sputum, Induced/Lukens Gram Stain - Final 07/06/21 11:20 Sputum, Induced/Lukens Respiratory Culture - Final Culture exhibits no growth. 06/28/21 12:01 Blood Culture (Wb) - Right Hand Blood Culture - Final No growth in 5 days. 06/28/21 11:52 Blood Culture (Wb) - Left Hand Blood Culture - Final No growth in 5 days. 06/26/21 20:35 Urine, Clean Catch Streptococcus pneumoniae Antigen (M - Final 06/26/21 20:35 Urine, Clean Catch Legionella Antigen - Final 06/28/21 16:50 Mucosa - Nasopharyngeal Influenza Types A,B Direct FA (ROSEMARIE) - Final Influenzae B 06/26/21 20:35 Urine, Clean Catch Urine Culture - Final Escherichia coli Physical Exam Const Constitutional Narrative: RASS -3 General Appearance: cooperative, ill appearing, intubated and patient mechanically ventilated Nutritional Appearance: morbidly obese HEENT normocephalic and head/scalp atraumatic HEENT Narrative: No additional bleeding noted around dialysis catheter. Pressure dressing at the site Mouth: endotracheal tube in place and OG tube in place Eyes PERRL, EOMs intact bilaterally and conjunctivae normal Neck supple General: trachea midline Chest inspection of chest normal Chest: symmetrical chest wall rise; Negative for crepitus Resp Resp Narrative: Peak airway pressures in the 40s. Effort and Inspection: tachypneic Auscultation: diminished lung sounds; Negative for rales, rhonchi or wheezes Cardio regular rate, regular rhythm, no rub and no gallops Heart Sounds: murmur systolic III/ crescendo mid left sternal border GI normal to inspection, nondistended, normoactive bowel sounds Extremity no clubbing, cyanosis or edema Skin Skin Narrative: Some ecchymotic areas noted in abdomen after Lovenox Neuro CN's II-XII intact bilaterally, moves all extremities and no focal motor deficits Psych Mood & Affect: apathetic and flat affect Charges/Coding Procedures Hospitalists Procedures: 85422 Critial Care 1st Hr
--- NOTE | 2021-07-12 09:45 | PCM.PN.HOSP ---
Subjective Subjective Still intubated and today, continues to have elevated temperatures, cultures were obtained yesterday and she was started on meropenem day Objective Data Objective Data Vital Signs: Vital Signs Temp Pulse Resp BP Pulse Ox 102.1 F H 112 H 214 H 99/62 96 07/12/21 08:00 07/12/21 08:11 07/12/21 08:11 07/12/21 08:00 07/12/21 08:11 Oxygen Flow Rate (L/min) [ 3 AMBULATING with Oxygen #1] Oxygen Flow Rate (L/min) 100 Oxygen Delivery Method Mechanical Ventilator Weight: 222 lb 14.197 oz Body Mass Index (BMI) 40.8 Intake & Output: Intake and Output for Last 24 Hours 07/11/21 07/12/21 07/13/21 03:59 03:59 03:59 Intake Total 1538.65 / 1560.45 1620.27 / 1632.77 530.00 / 530.00 Output Total 1245 / 1245 2115 / 2115 245 / 245 Balance 293.65 / 315.45 -494.73 / -482.23 285.00 / 285.00 Lab / Micro Data Result Diagrams: 07/11/21 04:20 07/12/21 04:15 Labs: Laboratory Results - last 24 hr 07/12/21 04:15: Sodium 129 L, Potassium 4.8, Chloride 91 L, Carbon Dioxide 26.0, Anion Gap 12, BUN 61 H, Creatinine 3.73 H, Estim Creat Clear Calc 12.77, Est GFR (MDRD) Af Amer 16 L, Est GFR (MDRD) Non-Af 13 L, BUN/Creatinine Ratio 16.4, Glucose 162 H, Calcium 8.5, Total Bilirubin 0.50, AST 19, ALT 14, Alkaline Phosphatase 122 H, Total Protein 6.9, Albumin 2.2 L, Globulin 4.7 H, Albumin/Globulin Ratio 0.5 L Micro: Microbiology 07/06/21 11:20 Sputum, Induced/Lukens Gram Stain - Final 07/06/21 11:20 Sputum, Induced/Lukens Respiratory Culture - Final Culture exhibits no growth. 06/28/21 12:01 Blood Culture (Wb) - Right Hand Blood Culture - Final No growth in 5 days. 06/28/21 11:52 Blood Culture (Wb) - Left Hand Blood Culture - Final No growth in 5 days. 06/26/21 20:35 Urine, Clean Catch Streptococcus pneumoniae Antigen (M - Final 06/26/21 20:35 Urine, Clean Catch Legionella Antigen - Final 06/28/21 16:50 Mucosa - Nasopharyngeal Influenza Types A,B Direct FA (ROSEMARIE) - Final Influenzae B 06/26/21 20:35 Urine, Clean Catch Urine Culture - Final Escherichia coli Physical Exam Narrative Const General Appearance: intubated and patient mechanically ventilated HEENT normocephalic and moist oral mucous membranes Eyes PERRL and conjunctivae normal Neck supple and no JVD Resp normal respiratory effort, no retractions and no use of accessory muscles Auscultation: diminished lung sounds; Negative for crackles, rales, rhonchi or wheezes Cardio regular rate, regular rhythm, S1 normal heart sound, S2 normal heart sound and no murmurs GI soft to palpation and non-distended; Negative for hepatosplenomegaly Extremity no clubbing, cyanosis or edema Skin no rashes or lesions noted Neuro Sensorium / Orientation: sedated on vent Psych Appearance: intubated Assessment & Plan Assessment/Plan (1) Acute respiratory failure with hypoxia: (2) Influenza B: (3) COVID-19: (4) OPAL (acute kidney injury): (5) Hyperkalemia: PLAN: 1. Acute hypoxic respiratory failure secondary to influenza B and COVID-19/OPAL on CKD 3a/history of asthma -Patient required intubation on 07/06/2021 -Has been sick for approximately 3 weeks prior to admission, therefore did not qualify for remdesivir ?Did complete Decadron for 10 days, however we will continue given her continued challenges while on the vent. She did complete a course of Tamiflu -Was vaccinated and boosted however was immunocompromised with CellCept, tacrolimus, and prednisone -Not a baricitinib candidate secondary to liver transplant -Pulmonary medicine following-appreciate input ?Continue fevers, will reculture and start on meropenem -ID following-appreciate input ?Renal function improving with dialysis, continue to remove fluid as able 2. Autoimmune hepatitis status post liver transplant ?Appreciate gastroenterology's input ?Continue with rifaximin steroid ?Still on tacrolimus, level is pending unfortunately the first sample was never actually sent for testing 3. Hypothyroidism ?Stable ?Continue with Synthroid 4. GERD ?Stable ?Continue with PPI 5. HLD/obesity ?Continue with statin ?Her BMI of 38.8 complicates care DVT: Lovenox Charges/Coding Visit Charges Inpatient E&M: 77663 Subs Hosp L2
--- NOTE | 2021-07-12 10:21 | PCM.PN.REN ---
Subjective Subjective Following for OPAL. The patient is intubated/sedated in ICU. Cannot do ROS. The patient is now on FiO2 of 0.8. Objective Data Objective Data Vital Signs: Vital Signs Temp Pulse Resp BP Pulse Ox 102.1 F H 112 H 214 H 99/62 96 07/12/21 08:00 07/12/21 08:11 07/12/21 08:11 07/12/21 08:00 07/12/21 08:11 Oxygen Flow Rate (L/min) [ 3 AMBULATING with Oxygen #1] Oxygen Flow Rate (L/min) 100 Oxygen Delivery Method Mechanical Ventilator Weight: 101.1 kg Body Mass Index (BMI) 40.8 Intake & Output: Intake and Output for Last 24 Hours 07/10/21 07/11/21 07/12/21 23:59 23:59 23:59 Intake Total 1633.73 / 1646.81 1568.38 / 1675.88 698.96 / 698.96 Output Total 1165 / 1245 2195 / 2195 245 / 245 Balance 468.73 / 401.81 -626.62 / -519.12 453.96 / 453.96 Lab / Micro Data Result Diagrams: 07/11/21 04:20 07/12/21 04:15 Labs: Laboratory Results - last 24 hr 07/12/21 04:15: Sodium 129 L, Potassium 4.8, Chloride 91 L, Carbon Dioxide 26.0, Anion Gap 12, BUN 61 H, Creatinine 3.73 H, Estim Creat Clear Calc 12.77, Est GFR (MDRD) Af Amer 16 L, Est GFR (MDRD) Non-Af 13 L, BUN/Creatinine Ratio 16.4, Glucose 162 H, Calcium 8.5, Total Bilirubin 0.50, AST 19, ALT 14, Alkaline Phosphatase 122 H, Total Protein 6.9, Albumin 2.2 L, Globulin 4.7 H, Albumin/Globulin Ratio 0.5 L Micro: Microbiology 07/06/21 11:20 Sputum, Induced/Lukens Gram Stain - Final 07/06/21 11:20 Sputum, Induced/Lukens Respiratory Culture - Final Culture exhibits no growth. 06/28/21 12:01 Blood Culture (Wb) - Right Hand Blood Culture - Final No growth in 5 days. 06/28/21 11:52 Blood Culture (Wb) - Left Hand Blood Culture - Final No growth in 5 days. 06/26/21 20:35 Urine, Clean Catch Streptococcus pneumoniae Antigen (M - Final 06/26/21 20:35 Urine, Clean Catch Legionella Antigen - Final 06/28/21 16:50 Mucosa - Nasopharyngeal Influenza Types A,B Direct FA (ROSEMARIE) - Final Influenzae B 06/26/21 20:35 Urine, Clean Catch Urine Culture - Final Escherichia coli Physical Exam Narrative Minimal exam due to Covid pneumonia Intubated Sedated Richardson catheter No significant edema No cyanosis Assessment & Plan Assessment/Plan (1) OPAL (acute kidney injury): PLAN: -OPAL is likely due to ischemic ATN related to sepsis. The patient remains oliguric. -Dialysis was initiated on 07/08/2021. -The patient tolerated her third dialysis treatment well yesterday. 2 L was ultrafiltered. -However, the patient is still volume overloaded and would benefit from more volume removal since her oxygen requirement has increased. -Therefore, I will plan on ultrafiltration today. -We will reassess again tomorrow, but we will likely dialyze her again for diffusive clearance tomorrow. (2) Chronic kidney disease, stage 3a: PLAN: -Baseline serum creatinine is 1.4 mg/dL. (3) Immunosuppressed status: PLAN: -The patient is status post orthotopic liver transplantation. -On tacrolimus, CellCept, prednisone. CellCept is on hold as per transplant team recommendation due to COVID-19 infection. -The patient is also being followed by GI. (4) Acute respiratory failure with hypoxia: PLAN: -The patient is ventilator dependent. -She is being treated for COVID-19 pneumonia along with influenza B pneumonia. -Nephrology plan discussed with Dr. Emerson today. We will ultrafilter the patient for more volume removal to see if this will help with her oxygenation. -We will likely dialyze her again tomorrow for both volume removal and diffusive clearance.
[2021-07-12] MEDS: Polyethylene Glycol 3350 17 GM PACKET GT (10:53)
[2021-07-12] MEDS: Levothyroxine 88 MCG Tablet PO (10:54)
[2021-07-12] MEDS: dexAMETHasone 10 MG/ML Vial 6 MG IV (10:54)
[2021-07-12] MEDS: Ascorbic Acid 500 MG Tablet PO ×2 (10:54→17:50)
[2021-07-12] MEDS: Aspirin E.C. 81 MG Tablet PO (10:54)
[2021-07-12] MEDS: Tacrolimus 0.5 MG Capsule PO ×2 (10:54→21:29)
[2021-07-12] MEDS: Tacrolimus Anhydrous 1 MG Capsule 2 MG PO ×2 (10:54→21:30)
[2021-07-12] MEDS: Ferrous Gluconate 324 MG Tablet PO (10:54)
[2021-07-12] MEDS: Senna/Docusate Sodium 1 Tablet PO ×2 (10:54→21:51)
[2021-07-12] MEDS: rifAXIMin 550 MG Tablet PO ×2 (10:54→21:28)
[2021-07-12] MEDS: Calcium (Elemental) 500 MG Tablet PO ×2 (10:54→21:43)
[2021-07-12] MEDS: Ursodiol 250 MG Tablet PO ×2 (10:54→21:28)
[2021-07-12] MEDS: Cholecalciferol (VIT D3) 25 MCG TABLET (1,000 UNITS) 50 MCG PO (10:55)
[2021-07-12] MEDS: Lactulose 20 GM/30 ML UDC PO ×2 (10:56→21:26)
[2021-07-12] MEDS: Menthol/Lanolin/Calamine/Znox 113 GM Tube 1 APPLIC TOPICAL ×2 (10:56→21:22)
[2021-07-12] MEDS: Chlorhexidine 15 ML PO ×2 (10:57→21:25)
[2021-07-12 11:30] LABS: Absolute Lymphocyte Count 0.48 X10^3/uL (0.83-4.51); Absolute Neutrophil Count 17.8 X10^3/uL (2.0-7.7); Basophil# 0.02 X10^3/uL; Basophil% 0.1 % (0-1); Eosinophil# 0.02 X10^3/uL; Eosinophils% 0.1 % (0-5); Hematocrit 32.5 % (37-47); Hemoglobin 10.6 g/dL (12.0-15.0); Lymphocyte # 0.48 X10^3/ul (0.83-4.51); Lymphocyte % 2.4 % (19-41); Mean Corp Hgb Conc 32.6 g/dL (32-36); Mean Corpuscular Hgb 28.3 pg (27.0-32.0); Mean Corpuscular Volume 86.7 fL (81-99); Mean Platelet Vol. 9.2 fl (6.2-12.0); Monocyte# 1.35 X10^3/uL; Monocyte% 6.7 % (0-10); NRBC Flagged by Analyzer 0.1 % (0-5); Neutrophil # 17.83 X10^3/uL (2.7-7.7); Neutrophil % 88.8 % (47-70); POSITIVE DIFFERENTIAL YES; Platelet Count 158 K/mm3 (150-450); RBC Distribution Width CV 14.1 % (11.6-14.6); RBC Distribution Width SD 43.5 fl (35.1-43.9); Red Blood Count 3.75 M/mm3 (4.2-5.4); White Blood Count 20.1 K/mm3 (4.4-11.0)
[2021-07-12 11:33] LABS: Differential Indicated SCAN CRITERIA MET
--- NOTE | 2021-07-12 13:59 | PCM.RX.CS ---
Consult Pharmacy has been consulted to manage selected antiobiotic: Vancomycin Type of Consult: New start Labs: Sodium 129 mmol/L (136-145) L 07/12/21 04:15 Potassium 4.8 mmol/L (3.5-5.1) 07/12/21 04:15 Chloride 91 mmol/L (98-107) L 07/12/21 04:15 Carbon Dioxide 26.0 mmol/L (21.0-32.0) 07/12/21 04:15 Anion Gap 12 (5-15) 07/12/21 04:15 BUN 61 mg/dL (7-18) H 07/12/21 04:15 Creatinine 3.73 mg/dL (0.55-1.02) H 07/12/21 04:15 Est GFR (MDRD) Af Amer 16 mL/min (>60) L 07/12/21 04:15 Est GFR (MDRD) Non-Af 13 mL/min (>60) L 07/12/21 04:15 BUN/Creatinine Ratio 16.4 RATIO (10-20) 07/12/21 04:15 Glucose 162 mg/dL (74-106) H 07/12/21 04:15 Vancomycin Trough 14.0 ug/mL (5.0-15.0) 07/07/21 11:30 Microbiology: Microbiology 07/11/21 15:25 Sputum, Induced/Lukens Gram Stain - Final 07/11/21 15:25 Sputum, Induced/Lukens Respiratory Culture - Preliminary Coag Negative Staph 07/11/21 15:00 Urine Catheter - Richardson Urine Culture - Preliminary Gram positive organism 07/06/21 11:20 Sputum, Induced/Lukens Gram Stain - Final 07/06/21 11:20 Sputum, Induced/Lukens Respiratory Culture - Final Culture exhibits no growth. 06/28/21 12:01 Blood Culture (Wb) - Right Hand Blood Culture - Final No growth in 5 days. 06/28/21 11:52 Blood Culture (Wb) - Left Hand Blood Culture - Final No growth in 5 days. 06/26/21 20:35 Urine, Clean Catch Streptococcus pneumoniae Antigen (M - Final 06/26/21 20:35 Urine, Clean Catch Legionella Antigen - Final 06/28/21 16:50 Mucosa - Nasopharyngeal Influenza Types A,B Direct FA (ROSEMARIE) - Final Influenzae B 06/26/21 20:35 Urine, Clean Catch Urine Culture - Final Escherichia coli Goal Trough: 15-20 mcg/mL Pharmacy Plan for Drug Dosing: NEW START IV VANCOMYCIN Consulting Physician: Ki Indication: Goal Trough: 15-20 SrCr: 3.73 CrCl: ~13 mls/min Comments: pt was previously treated with Vancomycin. Last level was 14.0 on 07/07/21. Pt will doses under the HD protocol Vancomcyin Dose: pt received a 2000mg loading dose on 07/13/21 at 1050. Next dose will be dependent upon pts pre dialysis level (since pt had a 14.0 level on 07/07/21, will not follow the HD protocol for the second dose. Feel it's best to receive a random level and dose based off of that level.) Pending Level: 07/13/21 at 0600 -- pre dialysis random level Pharmacy Service will continue to monitor and adjust dosing as required. Follow-Up Labs: Trough Vancomycin - 07/13/21 at 0600 -- random level
[2021-07-12] MEDS: Vital AF 1.2 Cal Liquid 1,000 ML 10 ML GT (14:07)
[2021-07-12] MEDS: 0.9% Saline Lock 10 ML Syringe IV (21:25)
[2021-07-12] MEDS: Atorvastatin Calcium 10 MG Tablet PO (21:26)
[2021-07-13] VITALS (34 sets, daily range): BP systolic 87–169; BP diastolic 59–81; PULSE 91–110; RESP 6–32; TEMP 37.2–38.4; O2SAT 88–95
[2021-07-13] MEDS: guaiFENesin 10 ML UDC (200MG/10ML) 20 ML GT ×5 (02:42→22:30)
[2021-07-13 04:07] LABS: Absolute Lymphocyte Count 0.45 X10^3/uL (0.83-4.51); Absolute Neutrophil Count 19.5 X10^3/uL (2.0-7.7); Basophil# 0.02 X10^3/uL; Basophil% 0.1 % (0-1); Hematocrit 30.7 % (37-47); Hemoglobin 9.8 g/dL (12.0-15.0); Lymphocyte # 0.45 X10^3/ul (0.83-4.51); Mean Corp Hgb Conc 31.9 g/dL (32-36); Mean Corpuscular Hgb 27.7 pg (27.0-32.0); Mean Corpuscular Volume 86.7 fL (81-99); Mean Platelet Vol. 9.3 fl (6.2-12.0); Monocyte% 7.7 % (0-10); NRBC Flagged by Analyzer 0 % (0-5); Neutrophil # 19.53 X10^3/uL (2.7-7.7); Neutrophil % 88.7 % (47-70); POSITIVE DIFFERENTIAL YES; Platelet Count 190 K/mm3 (150-450); RBC Distribution Width CV 14.2 % (11.6-14.6); RBC Distribution Width SD 44.4 fl (35.1-43.9); Red Blood Count 3.54 M/mm3 (4.2-5.4)
[2021-07-13 04:30] LABS: ALB/GLOB Ratio 0.5 RATIO (0.9-2.4); AST(SGOT) 19 U/L (15-37); Alanine Aminotransfer ALT/SGPT 16 U/L (13-56); Albumin, Serum 2.1 g/dL (3.2-5.0); Alkaline Phosphatase 93 U/L (45-117); Anion Gap 12 (5-15); BUN 70 mg/dL (7-18); BUN/Creat Ratio 17.1 RATIO (10-20); Calcium,Total 8.1 mg/dL (8.5-10.1); Chloride 95 mmol/L (98-107); Creatinine, Serum 4.09 mg/dL (0.55-1.02); EST Glomerular Filtration Rate 12 mL/min (>60); Est Glom Filt Rate - Afr Amer 14 mL/min (>60); Estimated Creatinine Clearance 11.65 ml/min; Globulin 4.2 g/dL (2.2-4.2); Glucose 150 mg/dL (74-106); Potassium 4.7 mmol/L (3.5-5.1); Protein, Total 6.3 g/dL (6.4-8.2); Sodium Level 131 mmol/L (136-145); Vancomycin, Random Level 26.5 ug/mL (0.0-15.0)
[2021-07-13 04:36] LABS: Differential Indicated SCAN CRITERIA MET
[2021-07-13] MEDS: Enoxaparin 30 MG/0.3 ML Syringe SC (05:06)
--- NOTE | 2021-07-13 06:11 | PCM.PN.INT ---
Assessment & Plan Assessment/Plan (1) COVID-19: (2) Influenza B: PLAN: RECOMMENDATIONS: 1. Continue mechanical ventilation and wean FiO2 for saturations greater than 90%. 2. Continue empiric antimicrobials. 3. Ongoing hemodialysis with volume removal, per nephrology recommendations. 4. Continue appropriate ICU prophylaxis. 5. Continue tube feeds as tolerated. Consider increasing infusion rate tomorrow. 6. Await tacrolimus level results. IMPRESSIONS: 1. Acute hypoxemic respiratory failure secondary to COVID-19/influenza B The patient was initially admitted to the hospital on June 27 and subsequently tested positive for both COVID-19 and influenza. The patient is vaccinated at her baseline. However, she is immunosuppressed due to a history of a liver transplant. The patient's oxygenation status progressively worsened over the course of her hospitalization, ultimately culminating in intubation on July 06. She has completed a treatment course of Tamiflu. She has been continued on Decadron and prophylactic Lovenox. In light of recent fevers, the patient was also started on empiric antimicrobials. Continue to wean FiO2 to maintain saturations at or above 90%. Ongoing volume optimization through hemodialysis per nephrology recommendations. 2. Acute kidney injury Likely secondary to ischemic ATN in the setting of #1. Nephrology is currently following to assist with hemodialysis needs and volume removal. 3. Chronic baseline immunosuppressed state secondary to liver transplantation Continue baseline outpatient immunosuppressive regimen, with the exception of CellCept. Liver function profile remains within normal limits. Tacrolimus levels are still pending. Continuing Decadron to help with immunosuppression past the normal 10 days for COVID-19. 4. Morbid obesity/asthma/hypothyroidism/hyperlipidemia/GERD Complicates care, management, recovery and prognosis. Continue home medications as indicated. Poor overall prognosis. TIME: 34 minutes of critical care time, independent of procedures, was spent addressing the patient's acute hypoxemic respiratory failure secondary to COVID-19/influenza B, acute kidney injury, review of all data and collaboration with the care team. Subjective Subjective The patient was seen and examined at the bedside this morning. Events from the last 24 hours have been reviewed. Today is vent day #8. The patient currently has a low-grade fever but remains otherwise hemodynamically stable. She remains on assist control mode of mechanical ventilation with an FiO2 requirement of 70% and PEEP of 14. She is currently sedated on fentanyl. The patient tolerated dialysis yesterday with 1 L of fluid removed. She is currently documented to be overall net +9.6 L for the hospitalization. She remains on empiric antimicrobials. White count remains elevated at 22,000. Objective Data Objective Data The patient's most recent lab work, culture data and imaging studies have all been personally reviewed. Coronavirus PCR was positive on June 26. Influenza screen was positive for flu B. Vital Signs: Vital Signs Temp Pulse Resp BP Pulse Ox 99.7 F H 106 H 27 H 150/81 H 90 07/13/21 04:00 07/13/21 04:40 07/13/21 04:40 07/13/21 04:00 07/13/21 04:40 Oxygen Flow Rate (L/min) [ 3 AMBULATING with Oxygen #1] Oxygen Flow Rate (L/min) 100 Oxygen Delivery Method Mechanical Ventilator Weight: 101.1 kg Body Mass Index (BMI) 40.8 Intake & Output: Intake and Output for Last 24 Hours 07/11/21 07/12/21 07/13/21 23:59 23:59 23:59 Intake Total 1568.38 / 1675.88 2295.96 / 2353.46 144.96 / 144.96 Output Total 2195 / 2195 1295 / 1295 Balance -626.62 / -519.12 1000.96 / 1058.46 144.96 / 144.96 Lab / Micro Data Attestation: I reviewed the patient's lab results. Result Diagrams: 07/13/21 04:00 07/13/21 04:00 Labs: Laboratory Results - last 24 hr 07/12/21 11:25: WBC 20.1 H, RBC 3.75 L, Hgb 10.6 L, Hct 32.5 L, MCV 86.7, MCH 28.3, MCHC 32.6, RDW Std Deviation 43.5, RDW Coeff of [place]rell 14.1, Plt Count 158, MPV 9.2, Immature Gran % (Auto) 1.900 H, Neut % (Auto) 88.8 H, Lymph % (Auto) 2.4 L, [place] % (Auto) 6.7, Eos % (Auto) 0.1, Baso % (Auto) 0.1, Absolute Neuts (auto) 17.8 H, Absolute Lymphs (auto) 0.48 L, Nucleated RBC % 0.1 07/13/21 04:00: Sodium 131 L, Potassium 4.7, Chloride 95 L, Carbon Dioxide 24.0, Anion Gap 12, BUN 70 H, Creatinine 4.09 H, Estim Creat Clear Calc 11.65, Est GFR (MDRD) Af Amer 14 L, Est GFR (MDRD) Non-Af 12 L, BUN/Creatinine Ratio 17.1, Glucose 150 H, Calcium 8.1 L, Total Bilirubin 0.50, AST 19, ALT 16, Alkaline Phosphatase 93, Total Protein 6.3 L, Albumin 2.1 L, Globulin 4.2, Albumin/Globulin Ratio 0.5 L 07/13/21 04:00: WBC 22.0 H, RBC 3.54 L, Hgb 9.8 L, Hct 30.7 L, MCV 86.7, MCH 27.7, MCHC 31.9 L, RDW Std Deviation 44.4 H, RDW Coeff of [place] 14.2, Plt Count 190, MPV 9.3, Immature Gran % (Auto) 1.500 H, Neut % (Auto) 88.7 H, Lymph % (Auto) 2.0 L, [place] % (Auto) 7.7, Eos % (Auto) 0.0, Baso % (Auto) 0.1, Absolute Neuts (auto) 19.5 H, Absolute Lymphs (auto) 0.45 L, Nucleated RBC % 0, Diff Path Review October07/13/21 04:00: Random Vancomycin 26.5 H Micro: Microbiology 07/11/21 15:25 Sputum, Induced/Lukens Gram Stain - Final 07/11/21 15:25 Sputum, Induced/Lukens Respiratory Culture - Preliminary Coag Negative Staph 07/11/21 15:00 Urine Catheter - Richardson Urine Culture - Preliminary Gram positive organism 07/06/21 11:20 Sputum, Induced/Lukens Gram Stain - Final 07/06/21 11:20 Sputum, Induced/Lukens Respiratory Culture - Final Culture exhibits no growth. 06/28/21 12:01 Blood Culture (Wb) - Right Hand Blood Culture - Final No growth in 5 days. 06/28/21 11:52 Blood Culture (Wb) - Left Hand Blood Culture - Final No growth in 5 days. 06/26/21 20:35 Urine, Clean Catch Streptococcus pneumoniae Antigen (M - Final 06/26/21 20:35 Urine, Clean Catch Legionella Antigen - Final 06/28/21 16:50 Mucosa - Nasopharyngeal Influenza Types A,B Direct FA (ROSEMARIE) - Final Influenzae B 06/26/21 20:35 Urine, Clean Catch Urine Culture - Final Escherichia coli Physical Exam Const Constitutional Narrative: Intubated, sedated and mechanically ventilated. No ventilator dyssynchrony. Nutritional Appearance: morbidly obese HEENT normocephalic and head/scalp atraumatic Mouth: endotracheal tube in place and OG tube in place Eyes PERRL and EOMs intact bilaterally Neck supple General: trachea midline and CVC in place Chest inspection of chest normal Resp Effort and Inspection: tachypneic Auscultation: diminished lung sounds; Negative for rales, rhonchi or wheezes Cardio S1 normal heart sound and S2 normal heart sound Rate: tachycardic Heart Sounds: murmur GI normal to inspection, nondistended, normoactive bowel sounds Extremity no clubbing, cyanosis or edema Skin no rashes or lesions noted Neuro Sensorium / Orientation: sedated on vent Charges/Coding Procedures Hospitalists Procedures: [id number] Critial Care 1st Hr
--- NOTE | 2021-07-13 07:43 | PN.HOSP_ITS ---
Subjective Subjective Patient had fever T-max 102.1 Fahrenheit last night. Patient is intubated on on mechanical ventilator, AC mode FiO2 70%. Patient is on cooling blanket and antibiotics Objective Data Objective Data Vital Signs: Vital Signs Temp Pulse Resp BP Pulse Ox 99.8 F H 101 H 18 148/69 H 92 07/13/21 07:00 07/13/21 07:00 07/13/21 07:00 07/13/21 07:00 07/13/21 07:00 Oxygen Flow Rate (L/min) [ 3 AMBULATING with Oxygen #1] Oxygen Flow Rate (L/min) 100 Oxygen Delivery Method Mechanical Ventilator Weight: 224 lb 3.362 oz Body Mass Index (BMI) 40.8 Intake & Output: Intake and Output for Last 24 Hours 07/11/21 07/12/21 07/13/21 23:59 23:59 23:59 Intake Total 1568.38 / 1675.88 2295.96 / 2383.96 405.46 / 405.46 Output Total 2195 / 2195 1295 / 1295 50 / 50 Balance -626.62 / -519.12 1000.96 / 1088.96 355.46 / 355.46 Lab / Micro Data Result Diagrams: 07/13/21 04:00 07/13/21 04:00 Labs: Laboratory Results - last 24 hr 07/12/21 11:25: WBC 20.1 H, RBC 3.75 L, Hgb 10.6 L, Hct 32.5 L, MCV 86.7, MCH 28.3, MCHC 32.6, RDW Std Deviation 43.5, RDW Coeff of Tyrell 14.1, Plt Count 158, MPV 9.2, Immature Gran % (Auto) 1.900 H, Neut % (Auto) 88.8 H, Lymph % (Auto) 2.4 L, [place] % (Auto) 6.7, Eos % (Auto) 0.1, Baso % (Auto) 0.1, Absolute Neuts (auto) 17.8 H, Absolute Lymphs (auto) 0.48 L, Nucleated RBC % 0.1 07/13/21 04:00: Sodium 131 L, Potassium 4.7, Chloride 95 L, Carbon Dioxide 24.0, Anion Gap 12, BUN 70 H, Creatinine 4.09 H, Estim Creat Clear Calc 11.65, Est GFR (MDRD) Af Amer 14 L, Est GFR (MDRD) Non-Af 12 L, BUN/Creatinine Ratio 17.1, Glucose 150 H, Calcium 8.1 L, Total Bilirubin 0.50, AST 19, ALT 16, Alkaline Phosphatase 93, Total Protein 6.3 L, Albumin 2.1 L, Globulin 4.2, Albumin/Glob ulin Ratio 0.5 L 07/13/21 04:00: WBC 22.0 H, RBC 3.54 L, Hgb 9.8 L, Hct 30.7 L, MCV 86.7, MCH 27.7, MCHC 31.9 L, RDW Std Deviation 44.4 H, RDW Coeff of Tyrell 14.2, Plt Count 190, MPV 9.3, Immature Gran % (Auto) 1.500 H, Neut % (Auto) 88.7 H, Lymph % (Auto) 2.0 L, [place] % (Auto) 7.7, Eos % (Auto) 0.0, Baso % (Auto) 0.1, Absolute Neuts (auto) 19.5 H, Absolute Lymphs (auto) 0.45 L, Nucleated RBC % 0, Diff Path Review October07/13/21 04:00: Random Vancomycin 26.5 H Micro: Microbiology 07/11/21 15:25 Sputum, Induced/Lukens Gram Stain - Final 07/11/21 15:25 Sputum, Induced/Lukens Respiratory Culture - Preliminary Coag Negative Staph 07/11/21 15:00 Urine Catheter - Richardson Urine Culture - Preliminary Gram positive organism 07/06/21 11:20 Sputum, Induced/Lukens Gram Stain - Final 07/06/21 11:20 Sputum, Induced/Lukens Respiratory Culture - Final Culture exhibits no growth. 06/28/21 12:01 Blood Culture (Wb) - Right Hand Blood Culture - Final No growth in 5 days. 06/28/21 11:52 Blood Culture (Wb) - Left Hand Blood Culture - Final No growth in 5 days. 06/26/21 20:35 Urine, Clean Catch Streptococcus pneumoniae Antigen (M - Final 06/26/21 20:35 Urine, Clean Catch Legionella Antigen - Final 06/28/21 16:50 Mucosa - Nasopharyngeal Influenza Types A,B Direct FA (ROSEMARIE) - Final Influenzae B 06/26/21 20:35 Urine, Clean Catch Urine Culture - Final Escherichia coli Physical Exam Narrative General: Sedated on ventilator. BMI 39.7 kg/m? HEENT: Atraumatic, PERRLA, EOMI, Normocephalic Oral: ET and OG tube Neck: Supple, No JVD, Negative Carotid Bruits Lungs: Air entry equal bilaterally. On AC mode ventilator. Cardiovascular: Sinus rhythm, mild tachycardia, normal S1, Normal S2, No murmurs Abdomen: Bowel Sounds sluggish, Soft, Non Tender, Non-Distended status post liver transplant : No renal angle tenderness. No suprapubic tenderness. Extremities: Mild edema of lower extremities edema. Skin: No rashes, No breakdown Musculoskeletal: No Tenderness to Palpation of Joints or Extremities Neurological: Cranial nerves II-XII grossly intact, no focal deficit. Psych/Mental Status: Sedated. Assessment & Plan Assessment/Plan (1) Acute respiratory failure with hypoxia: (2) Influenza B: (3) COVID-19: (4) OPAL (acute kidney injury): (5) Hyperkalemia: PLAN: 1. Acute hypoxic respiratory failure due to bilateral COVID-19 pneumonia and bacterial secondary infection: 07/13: Patient having fever and on cooling blanket.. It was intubated on July 06. Before that patient was on AIRVO with worsening oxygenation and respiratory status which led to BiPAP and then intubated. Patient is on IV meropenem and vancomycin. Prior to that patient was on cefepime and vancomycin. Patient has leukocytosis. 2. Autoimmune hepatitis status post liver transplant. Immunocompromised host. Serum tacrolimus level pending Continue tacrolimus, Bactrim and dexamethasone. Earlier on 07/03, mycophenolate was discontinued after nursing staff talked to the direct marketing coordinator in [facility]. Currently literature, mycophenolate not recommended during Covid infection because side effect of pancytopenia and lowering the immune status. 3. OPAL on CKD stage 3b: Creatinine level fluctuates, it was 1.34 on 07/05, gradually worsening to current 4.09. The patient's daughter said her creatinine has always been fluctuating because of interaction with different immunosuppression medications. 4 hypothyroidism: Continue Synthroid 5. GERD, dyslipidemia and morbid obesity: VTE prophylaxis: Enoxaparin 30 mg SQ twice daily estimated creatinine clearance 39 mL/min.. Discontinue if platelet count drops less than 50,000 or hemoglobin less than 8 g% Total time of the visit including total time spent in counseling or coordination of care, (more than 50% of the total time, spent in obtaining medical information from nurses and other ancillary care providers,explaining to the patient about labs, imaging, diagnosis and management), discussion with consultants with complexity of immunosuppression and liver transplant, review of labs and imaging is 40 minutes. Charges/Coding Visit Charges Inpatient E&M: 60863 Subs Hosp L3
[2021-07-13] MEDS: Calcium (Elemental) 500 MG Tablet PO (08:04)
[2021-07-13] MEDS: Chlorhexidine 15 ML PO ×2 (08:04→22:30)
[2021-07-13] MEDS: Polyethylene Glycol 3350 17 GM PACKET GT (08:05)
[2021-07-13] MEDS: Aspirin E.C. 81 MG Tablet PO (08:05)
[2021-07-13] MEDS: dexAMETHasone 10 MG/ML Vial 6 MG IV (08:05)
[2021-07-13] MEDS: Cholecalciferol (VIT D3) 25 MCG TABLET (1,000 UNITS) 50 MCG PO (08:05)
[2021-07-13] MEDS: Ursodiol 250 MG Tablet PO (08:05)
[2021-07-13] MEDS: Lactulose 20 GM/30 ML UDC PO (08:07)
[2021-07-13] MEDS: Levothyroxine 88 MCG Tablet PO (08:07)
[2021-07-13] MEDS: rifAXIMin 550 MG Tablet PO (08:08)
[2021-07-13] MEDS: Ascorbic Acid 500 MG Tablet PO (08:08)
[2021-07-13] MEDS: Menthol/Lanolin/Calamine/Znox 113 GM Tube 1 APPLIC TOPICAL ×2 (08:51→22:30)
[2021-07-13] MEDS: Smz/Tmp Ds Tablet 1 TABLET GT (10:04)
[2021-07-13] MEDS: Tacrolimus Anhydrous 1 MG Capsule 2 MG GT ×2 (10:04→22:30)
[2021-07-13] MEDS: Tacrolimus 0.5 MG Capsule GT ×2 (10:04→22:30)
--- NOTE | 2021-07-13 10:35 | CASEMGMT ---
Social Work SW participated in ICU rounds this morning. SW called daughter Tapan to offer support, let her know SW remains available for support to her through this process. Daughter states understanding. She states she is staying busy and doing okay. SW will continue to follow for support to family and discharge needs as appropriate. GRISELDA Glez
--- NOTE | 2021-07-13 14:08 | PCM.PN.ID ---
Physical Exam Narrative On vent, dialysis. Fever to 102.4 last evening. Const Constitutional Narrative: ill appearing Resp Effort and Inspection: labored and mechanically ventilated Auscultation: diminished lung sounds Cardio regular rate and regular rhythm GI soft to palpation and non-tender Skin no rashes or lesions noted ID ID: Route of nutrition/ use of supplements: [] Nutritional Intake: [] IV Site: [] Richardson Catheter: [] Assessment & Plan Assessment/Plan (1) CKD (chronic kidney disease) stage 3, GFR 30-59 ml/min: (2) Liver transplant recipient: (3) Hypoxia: (4) COVID-19: PLAN: Sick for approximately 3 weeks prior to admit. Covid vaccine x3. Also flu B Ag (+). On cellcept, tacro, pred, bactrim at home with h/o liver transplant. Not candidate for baricitinib due to liver transplant. On dex here and completed empiric course of cefepime. Ucx with ecoli, 80-100k. Completed 5 days of tamiflu for flu coverage. Remains intubated. Worsening OPAL, now on HD. New fevers, started on empiric vanc/eli /. Will follow (5) Influenza B:
--- NOTE | 2021-07-13 14:11 | PCM.RX.CS ---
Consult Type of Consult: Follow-up Suspected Infection: Other Labs: Sodium 131 mmol/L (136-145) L 07/13/21 04:00 Potassium 4.7 mmol/L (3.5-5.1) 07/13/21 04:00 Chloride 95 mmol/L (98-107) L 07/13/21 04:00 Carbon Dioxide 24.0 mmol/L (21.0-32.0) 07/13/21 04:00 Anion Gap 12 (5-15) 07/13/21 04:00 BUN 70 mg/dL (7-18) H 07/13/21 04:00 Creatinine 4.09 mg/dL (0.55-1.02) H 07/13/21 04:00 Est GFR (MDRD) Af Amer 14 mL/min (>60) L 07/13/21 04:00 Est GFR (MDRD) Non-Af 12 mL/min (>60) L 07/13/21 04:00 BUN/Creatinine Ratio 17.1 RATIO (10-20) 07/13/21 04:00 Glucose 150 mg/dL (74-106) H 07/13/21 04:00 Vancomycin Trough 14.0 ug/mL (5.0-15.0) 07/07/21 11:30 Random Vancomycin 26.5 ug/mL (0.0-15.0) H 07/13/21 04:00 Microbiology: Microbiology 07/11/21 15:00 Urine Catheter - Richardson Urine Culture - Preliminary Yeast 07/11/21 15:25 Sputum, Induced/Lukens Gram Stain - Final 07/11/21 15:25 Sputum, Induced/Lukens Respiratory Culture - Final Coag Negative Staph 07/06/21 11:20 Sputum, Induced/Lukens Gram Stain - Final 07/06/21 11:20 Sputum, Induced/Lukens Respiratory Culture - Final Culture exhibits no growth. 06/28/21 12:01 Blood Culture (Wb) - Right Hand Blood Culture - Final No growth in 5 days. 06/28/21 11:52 Blood Culture (Wb) - Left Hand Blood Culture - Final No growth in 5 days. 06/26/21 20:35 Urine, Clean Catch Streptococcus pneumoniae Antigen (M - Final 06/26/21 20:35 Urine, Clean Catch Legionella Antigen - Final 06/28/21 16:50 Mucosa - Nasopharyngeal Influenza Types A,B Direct FA (ROSEMARIE) - Final Influenzae B 06/26/21 20:35 Urine, Clean Catch Urine Culture - Final Escherichia coli Goal Trough: 15-20 mcg/mL Pharmacy Plan for Drug Dosing: VANCOMYCIN LEVEL RECEIVED Current Vancomycin Dose: Dosing per pre-HD random levels Number of Doses Received: 1 Vancomycin Level: 26.5 Hours Since Last Dose: 17 hours Renal Function: sCr 4.09, HD session planned for today Vancomycin Plan/Comments: Vancomycin dose is not necessary today due to SUPRAtherapeutic random level, even pre-HD. Continue to follow HD schedule and make further dosing adjustments as apprioriate. Pending Level: Random Vancomycin level @ 0600 07/14/21 Pharmacy Service will continue to monitor and adjust dosing as required. Labs to be done on [date and time ordered]: Random Vancomycin level @ 0600 07/14/21
--- NOTE | 2021-07-13 14:56 | PN.RENAL_ITS ---
Subjective Subjective Seen on dialysis. No overnight events. Sedated on vent. Objective Data Objective Data Vital Signs: Vital Signs Temp Pulse Resp BP Pulse Ox 99.2 F H 91 19 H 134/61 H 91 07/13/21 11:00 07/13/21 11:28 07/13/21 11:28 07/13/21 11:00 07/13/21 11:28 Oxygen Flow Rate (L/min) [ 3 AMBULATING with Oxygen #1] Oxygen Flow Rate (L/min) 100 Oxygen Delivery Method Mechanical Ventilator Weight: 101.7 kg Body Mass Index (BMI) 40.8 Intake & Output: Intake and Output for Last 24 Hours 07/11/21 07/12/21 07/13/21 23:59 23:59 23:59 Intake Total 1568.38 / 1675.88 2295.96 / 2383.96 657.25 / 657.25 Output Total 2195 / 2195 1295 / 1295 50 / 50 Balance -626.62 / -519.12 1000.96 / 1088.96 607.25 / 607.25 Lab / Micro Data Result Diagrams: 07/13/21 04:00 07/13/21 04:00 Labs: Laboratory Results - last 24 hr 07/13/21 04:00: Sodium 131 L, Potassium 4.7, Chloride 95 L, Carbon Dioxide 24.0, Anion Gap 12, BUN 70 H, Creatinine 4.09 H, Estim Creat Clear Calc 11.65, Est GFR (MDRD) Af Amer 14 L, Est GFR (MDRD) Non-Af 12 L, BUN/Creatinine Ratio 17.1, Glucose 150 H, Calcium 8.1 L, Total Bilirubin 0.50, AST 19, ALT 16, Alkaline Phosphatase 93, Total Protein 6.3 L, Albumin 2.1 L, Globulin 4.2, Albumin/Globu jaylan Ratio 0.5 L 07/13/21 04:00: WBC 22.0 H, RBC 3.54 L, Hgb 9.8 L, Hct 30.7 L, MCV 86.7, MCH 27.7, MCHC 31.9 L, RDW Std Deviation 44.4 H, RDW Coeff of Tyrell 14.2, Plt Count 190, MPV 9.3, Immature Gran % (Auto) 1.500 H, Neut % (Auto) 88.7 H, Lymph % (Auto) 2.0 L, [place] % (Auto) 7.7, Eos % (Auto) 0.0, Baso % (Auto) 0.1, Absolute Neuts (auto) 19.5 H, Absolute Lymphs (auto) 0.45 L, Nucleated RBC % 0, Diff Path Review October07/13/21 04:00: Random Vancomycin 26.5 H Micro: Microbiology 07/11/21 15:00 Urine Catheter - Richardson Urine Culture - Preliminary Yeast 07/11/21 15:25 Sputum, Induced/Lukens Gram Stain - Final 07/11/21 15:25 Sputum, Induced/Lukens Respiratory Culture - Final Coag Negative Staph 07/06/21 11:20 Sputum, Induced/Lukens Gram Stain - Final 07/06/21 11:20 Sputum, Induced/Lukens Respiratory Culture - Final Culture exhibits no growth. 06/28/21 12:01 Blood Culture (Wb) - Right Hand Blood Culture - Final No growth in 5 days. 06/28/21 11:52 Blood Culture (Wb) - Left Hand Blood Culture - Final No growth in 5 days. 06/26/21 20:35 Urine, Clean Catch Streptococcus pneumoniae Antigen (M - Final 06/26/21 20:35 Urine, Clean Catch Legionella Antigen - Final 06/28/21 16:50 Mucosa - Nasopharyngeal Influenza Types A,B Direct FA (ROSEMARIE) - Final Influenzae B 06/26/21 20:35 Urine, Clean Catch Urine Culture - Final Escherichia coli Physical Exam Narrative Intubated Richardson catheter with scant urine in tubing No significant pitting edema No cyanosis non-tunneled HD catheter right IJ dressing C/D/I Assessment & Plan Assessment/Plan (1) OPAL (acute kidney injury): PLAN: -OPAL is likely due to ischemic ATN related to sepsis. The patient remains oliguric, now to possibly anuric. UOP only 50ml today. -Dialysis was initiated on 07/08/2021. She had UF on 07/10 with 1L removed, last iHD 07/11 with 1.5L removed. -The patient is still volume overloaded and would benefit from more volume remov al since her oxygen requirement has increased. -no noted renal recovery at this time, SCr 4.1mg/dL today, patient to undergo iHD and attempt ~2L UF as pt/bp tolerates. -will likely plan for UF tomorrow. Peak weight ~104kg. Current weight 101.7kg - bps acceptable, not on any antihypertensives, not on any pressors at this time (2) Chronic kidney disease, stage 3a: PLAN: -Baseline serum creatinine is 1.4 mg/dL. (3) Immunosuppressed status: PLAN: -The patient is status post orthotopic liver transplantation. -On tacrolimus, CellCept, prednisone. CellCept is on hold as per transplant team recommendation due to COVID-19 infection. -The patient is also being followed by GI. (4) Acute respiratory failure with hypoxia: PLAN: -The patient is ventilator dependent. -She is being treated for COVID-19 pneumonia along with influenza B pneumonia. -We will likely dialyze her again tomorrow for volume removal
--- NOTE | 2021-07-13 17:04 | DIALYSIS ---
Hemodialysis x 3.5hrs today. UF -2500mL removed. Pt tolerated tx. Report to [facility] High Pt stable
[2021-07-13] MEDS: Vital AF 1.2 Cal Liquid 1,000 ML 10 ML GT (17:06)
[2021-07-13] MEDS: Ascorbic Acid 500 MG Tablet GT (17:11)
[2021-07-13] MEDS: Senna/Docusate Sodium 1 Tablet GT (22:30)
[2021-07-13] MEDS: Atorvastatin Calcium 10 MG Tablet GT (22:30)
[2021-07-13] MEDS: 0.9% Saline Lock 10 ML Syringe IV (22:30)
[2021-07-13] MEDS: rifAXIMin 550 MG Tablet GT (22:30)
[2021-07-13] MEDS: Ursodiol 250 MG Tablet GT (22:30)
[2021-07-13] MEDS: Lactulose 20 GM/30 ML UDC GT (22:30)
[2021-07-14] VITALS (38 sets, daily range): BP systolic 91–166; BP diastolic 50–85; PULSE 88–109; RESP 13–25; TEMP 37.1–38; O2SAT 90–100
[2021-07-14] MEDS: guaiFENesin 10 ML UDC (200MG/10ML) 20 ML GT ×4 (02:37→17:39)
[2021-07-14 04:57] LABS: Absolute Lymphocyte Count 0.62 X10^3/uL (0.83-4.51); Absolute Neutrophil Count 15.4 X10^3/uL (2.0-7.7); Basophil# 0.02 X10^3/uL; Basophil% 0.1 % (0-1); Eosinophil# 0.05 X10^3/uL; Eosinophils% 0.3 % (0-5); Hematocrit 29.5 % (37-47); Hemoglobin 9.5 g/dL (12.0-15.0); Lymphocyte # 0.62 X10^3/ul (0.83-4.51); Lymphocyte % 3.5 % (19-41); Mean Corp Hgb Conc 32.2 g/dL (32-36); Mean Platelet Vol. 9.7 fl (6.2-12.0); Monocyte# 1.44 X10^3/uL; Monocyte% 8.1 % (0-10); NRBC Flagged by Analyzer 0.2 % (0-5); Neutrophil % 86.3 % (47-70); Platelet Count 172 K/mm3 (150-450); RBC Distribution Width CV 14.2 % (11.6-14.6); RBC Distribution Width SD 44.3 fl (35.1-43.9); Red Blood Count 3.39 M/mm3 (4.2-5.4); White Blood Count 17.8 K/mm3 (4.4-11.0)
[2021-07-14] MEDS: Enoxaparin 30 MG/0.3 ML Syringe SC (05:02)
[2021-07-14 05:11] LABS: Anion Gap 11 (5-15); BUN 51 mg/dL (7-18); BUN/Creat Ratio 15.1 RATIO (10-20); Calcium,Total 7.9 mg/dL (8.5-10.1); Chloride 95 mmol/L (98-107); Creatinine, Serum 3.38 mg/dL (0.55-1.02); EST Glomerular Filtration Rate 15 mL/min (>60); Est Glom Filt Rate - Afr Amer 18 mL/min (>60); Estimated Creatinine Clearance 14.09 ml/min; Glucose 128 mg/dL (74-106); Potassium 4.2 mmol/L (3.5-5.1); Sodium Level 132 mmol/L (136-145)
[2021-07-14 05:20] LABS: Vancomycin, Random Level 20.8 ug/mL (0.0-15.0)
--- NOTE | 2021-07-14 06:54 | PCM.PN.INT ---
Assessment & Plan Assessment/Plan (1) COVID-19: (2) Influenza B: PLAN: RECOMMENDATIONS: 1. Continue mechanical ventilation and wean FiO2 for saturations greater than 90%. 2. Continue empiric antimicrobials. 3. Ongoing hemodialysis with volume removal, per nephrology recommendations. 4. Continue appropriate ICU prophylaxis. 5. Increase tube feed rate today. 6. Await tacrolimus level results. IMPRESSIONS: 1. Acute hypoxemic respiratory failure secondary to COVID-19/influenza B The patient was initially admitted to the hospital on June 27 and subsequently tested positive for both COVID-19 and influenza. The patient is vaccinated at her baseline. However, she is immunosuppressed due to a history of a liver transplant. The patient's oxygenation status progressively worsened over the course of her hospitalization, ultimately culminating in intubation on July 06. She has completed a treatment course of Tamiflu. She has been continued on Decadron and prophylactic Lovenox. In light of recent fevers, the patient was also started on empiric antimicrobials. Continue to wean FiO2 to maintain saturations at or above 90%. Ongoing volume optimization through hemodialysis per nephrology recommendations. 2. Acute kidney injury Likely secondary to ischemic ATN in the setting of #1. Nephrology is currently following to assist with hemodialysis needs and volume removal. 3. Chronic baseline immunosuppressed state secondary to liver transplantation Continue baseline outpatient immunosuppressive regimen, with the exception of CellCept. Liver function profile remains within normal limits. Tacrolimus levels are still pending. Continuing Decadron to help with immunosuppression past the normal 10 days for COVID-19. 4. Morbid obesity/asthma/hypothyroidism/hyperlipidemia/GERD Complicates care, management, recovery and prognosis. Continue home medications as indicated. Poor overall prognosis. TIME: 32 minutes of critical care time, independent of procedures, was spent addressing the patient's acute hypoxemic respiratory failure secondary to COVID-19/influenza B, acute kidney injury, review of all data and collaboration with the care team. Subjective Subjective The patient was seen and examined at the bedside this morning. Events from the last 24 hours have been reviewed. Today is vent day #9. The patient is currently afebrile and hemodynamically stable. She remains on assist control mode mechanical ventilation with an FiO2 requirement of 65% and PEEP of 14. She remains sedated on fentanyl. The patient tolerated dialysis yesterday with 2.5 L of fluid removed. She has now documented to be overall net +10.7 L for the hospitalization. She remains on empiric antimicrobials. Objective Data Objective Data The patient's most recent lab work, culture data and imaging studies have all been personally reviewed. Coronavirus PCR was positive on June 26. Influenza screen was positive for flu B. Vital Signs: Vital Signs Temp Pulse Resp BP Pulse Ox 99.0 F 88 16 139/60 H 90 07/14/21 06:00 07/14/21 06:00 07/14/21 06:00 07/14/21 06:00 07/14/21 06:00 Oxygen Flow Rate (L/min) [ 3 AMBULATING with Oxygen #1] Oxygen Flow Rate (L/min) 100 Oxygen Delivery Method Mechanical Ventilator Weight: 102.6 kg Body Mass Index (BMI) 40.8 Intake & Output: Intake and Output for Last 24 Hours 07/12/21 07/13/21 07/14/21 23:59 23:59 23:59 Intake Total 2295.96 / 2383.96 1116.46 / 1187.46 356.00 / 356.00 Output Total 1295 / 1295 105 / 155 50 / 50 Balance 1000.96 / 1088.96 1011.46 / 1032.46 306.00 / 306.00 Lab / Micro Data Attestation: I reviewed the patient's lab results. Result Diagrams: 07/14/21 04:45 07/14/21 04:45 Labs: Laboratory Results - last 24 hr 07/14/21 04:45: Random Vancomycin 20.8 H 07/14/21 04:45: Sodium 132 L, Potassium 4.2, Chloride 95 L, Carbon Dioxide 26.0, Anion Gap 11, BUN 51 H, Creatinine 3.38 H, Estim Creat Clear Calc 14.09, Est GFR (MDRD) Af Amer 18 L, Est GFR (MDRD) Non-Af 15 L, BUN/Creatinine Ratio 15.1, Glucose 128 H, Calcium 7.9 L 07/14/21 04:45: WBC 17.8 H, RBC 3.39 L, Hgb 9.5 L, Hct 29.5 L, MCV 87.0, MCH 28.0, MCHC 32.2, RDW Std Deviation 44.3 H, RDW Coeff of Tyrell 14.2, Plt Count 172, MPV 9.7, Immature Gran % (Auto) 1.700 H, Neut % (Auto) 86.3 H, Lymph % (Auto) 3.5 L, [place] % (Auto) 8.1, Eos % (Auto) 0.3, Baso % (Auto) 0.1, Absolute Neuts (auto) 15.4 H, Absolute Lymphs (auto) 0.62 L, Nucleated RBC % 0.2 Micro: Microbiology 07/11/21 15:00 Urine Catheter - Richardson Urine Culture - Preliminary Yeast 07/11/21 15:25 Sputum, Induced/Lukens Gram Stain - Final 07/11/21 15:25 Sputum, Induced/Lukens Respiratory Culture - Final Coag Negative Staph 07/06/21 11:20 Sputum, Induced/Lukens Gram Stain - Final 07/06/21 11:20 Sputum, Induced/Lukens Respiratory Culture - Final Culture exhibits no growth. 06/28/21 12:01 Blood Culture (Wb) - Right Hand Blood Culture - Final No growth in 5 days. 06/28/21 11:52 Blood Culture (Wb) - Left Hand Blood Culture - Final No growth in 5 days. 06/26/21 20:35 Urine, Clean Catch Streptococcus pneumoniae Antigen (M - Final 06/26/21 20:35 Urine, Clean Catch Legionella Antigen - Final 06/28/21 16:50 Mucosa - Nasopharyngeal Influenza Types A,B Direct FA (ROSEMARIE) - Final Influenzae B 06/26/21 20:35 Urine, Clean Catch Urine Culture - Final Escherichia coli Physical Exam Const Constitutional Narrative: Intubated, sedated and mechanically ventilated. No ventilator dyssynchrony. Nutritional Appearance: morbidly obese HEENT normocephalic and head/scalp atraumatic Mouth: endotracheal tube in place and OG tube in place Eyes PERRL and EOMs intact bilaterally Neck supple General: trachea midline and CVC in place Chest inspection of chest normal Resp Effort and Inspection: tachypneic Auscultation: diminished lung sounds; Negative for rales, rhonchi or wheezes Cardio S1 normal heart sound and S2 normal heart sound Rate: tachycardic Heart Sounds: murmur GI normal to inspection, nondistended, normoactive bowel sounds Extremity no clubbing, cyanosis or edema Skin no rashes or lesions noted Neuro Sensorium / Orientation: sedated on vent Charges/Coding Procedures [id number]
--- NOTE | 2021-07-14 10:03 | NURSING ---
FIO2 increased to 90% at this time d/t SPO2 84-89%
--- NOTE | 2021-07-14 11:30 | PCM.RX.CS ---
Consult Pharmacy has been consulted to manage selected antiobiotic: Vancomycin Type of Consult: Follow-up Suspected Infection: Other Prior Doses of Antibiotics Received/Current Regimen: received vanc 2000mg x1 on 07/12/21 at 10:50 Labs: Sodium 132 mmol/L (136-145) L 07/14/21 04:45 Potassium 4.2 mmol/L (3.5-5.1) 07/14/21 04:45 Chloride 95 mmol/L (98-107) L 07/14/21 04:45 Carbon Dioxide 26.0 mmol/L (21.0-32.0) 07/14/21 04:45 Anion Gap 11 (5-15) 07/14/21 04:45 BUN 51 mg/dL (7-18) H 07/14/21 04:45 Creatinine 3.38 mg/dL (0.55-1.02) H 07/14/21 04:45 Est GFR (MDRD) Af Amer 18 mL/min (>60) L 07/14/21 04:45 Est GFR (MDRD) Non-Af 15 mL/min (>60) L 07/14/21 04:45 BUN/Creatinine Ratio 15.1 RATIO (10-20) 07/14/21 04:45 Glucose 128 mg/dL (74-106) H 07/14/21 04:45 Vancomycin Trough 14.0 ug/mL (5.0-15.0) 07/07/21 11:30 Random Vancomycin 20.8 ug/mL (0.0-15.0) H 07/14/21 04:45 Microbiology: Microbiology 07/11/21 15:00 Urine Catheter - Richardson Urine Culture - Preliminary Yeast 07/11/21 15:25 Sputum, Induced/Lukens Gram Stain - Final 07/11/21 15:25 Sputum, Induced/Lukens Respiratory Culture - Final Coag Negative Staph 07/06/21 11:20 Sputum, Induced/Lukens Gram Stain - Final 07/06/21 11:20 Sputum, Induced/Lukens Respiratory Culture - Final Culture exhibits no growth. 06/28/21 12:01 Blood Culture (Wb) - Right Hand Blood Culture - Final No growth in 5 days. 06/28/21 11:52 Blood Culture (Wb) - Left Hand Blood Culture - Final No growth in 5 days. 06/26/21 20:35 Urine, Clean Catch Streptococcus pneumoniae Antigen (M - Final 06/26/21 20:35 Urine, Clean Catch Legionella Antigen - Final 06/28/21 16:50 Mucosa - Nasopharyngeal Influenza Types A,B Direct FA (ROSEMARIE) - Final Influenzae B 06/26/21 20:35 Urine, Clean Catch Urine Culture - Final Escherichia coli Weight used for dosin.6 kg Estimated Creatinine Clearance: 14ml/min Goal Trough: 15-20 mcg/mL Pharmacy Plan for Drug Dosing: The vanc random level drawn this morning at 04:45 was 20.8. This is still above 20 so the patient will not need a dose of vanc today after HD. Will continue to dose off pre-dialysis levels. It is unclear when the next dialysis session will be after today but when that is known pharmacy will enter another vanc random level to be drawn pre-dialysis on that day. Pharmacy Service will continue to monitor and adjust dosing as required.
--- NOTE | 2021-07-14 11:40 | PCM.PN.REN ---
Subjective Subjective Remains intubated Objective Data Objective Data Vital Signs: Vital Signs Temp Pulse Resp BP Pulse Ox 98.9 F 95 17 148/76 H 90 07/14/21 11:09 07/14/21 11:09 07/14/21 11:09 07/14/21 11:09 07/14/21 11:09 Oxygen Flow Rate (L/min) [ 3 AMBULATING with Oxygen #1] Oxygen Flow Rate (L/min) 100 Oxygen Delivery Method Mechanical Ventilator Weight: 102.6 kg Body Mass Index (BMI) 40.8 Intake & Output: Intake and Output for Last 24 Hours 07/12/21 07/13/21 07/14/21 23:59 23:59 23:59 Intake Total 2295.96 / 2383.96 1116.46 / 1187.46 788.50 / 788.50 Output Total 1295 / 1295 105 / 155 50 / 50 Balance 1000.96 / 1088.96 1011.46 / 1032.46 738.50 / 738.50 Lab / Micro Data Result Diagrams: 07/14/21 04:45 07/14/21 04:45 Labs: Laboratory Results - last 24 hr 07/14/21 04:45: Random Vancomycin 20.8 H 07/14/21 04:45: Sodium 132 L, Potassium 4.2, Chloride 95 L, Carbon Dioxide 26.0, Anion Gap 11, BUN 51 H, Creatinine 3.38 H, Estim Creat Clear Calc 14.09, Est GFR (MDRD) Af Amer 18 L, Est GFR (MDRD) Non-Af 15 L, BUN/Creatinine Ratio 15.1, Glucose 128 H, Calcium 7.9 L 07/14/21 04:45: WBC 17.8 H, RBC 3.39 L, Hgb 9.5 L, Hct 29.5 L, MCV 87.0, MCH 28.0, MCHC 32.2, RDW Std Deviation 44.3 H, RDW Coeff of Tyrell 14.2, Plt Count 172, MPV 9.7, Immature Gran % (Auto) 1.700 H, Neut % (Auto) 86.3 H, Lymph % (Auto) 3.5 L, [place] % (Auto) 8.1, Eos % (Auto) 0.3, Baso % (Auto) 0.1, Absolute Neuts (auto) 15.4 H, Absolute Lymphs (auto) 0.62 L, Nucleated RBC % 0.2 Micro: Microbiology 07/11/21 15:00 Urine Catheter - Richardson Urine Culture - Preliminary Yeast 07/11/21 15:25 Sputum, Induced/Lukens Gram Stain - Final 07/11/21 15:25 Sputum, Induced/Lukens Respiratory Culture - Final Coag Negative Staph 07/06/21 11:20 Sputum, Induced/Lukens Gram Stain - Final 07/06/21 11:20 Sputum, Induced/Lukens Respiratory Culture - Final Culture exhibits no growth. 06/28/21 12:01 Blood Culture (Wb) - Right Hand Blood Culture - Final No growth in 5 days. 06/28/21 11:52 Blood Culture (Wb) - Left Hand Blood Culture - Final No growth in 5 days. 06/26/21 20:35 Urine, Clean Catch Streptococcus pneumoniae Antigen (M - Final 06/26/21 20:35 Urine, Clean Catch Legionella Antigen - Final 06/28/21 16:50 Mucosa - Nasopharyngeal Influenza Types A,B Direct FA (ROSEMARIE) - Final Influenzae B 06/26/21 20:35 Urine, Clean Catch Urine Culture - Final Escherichia coli Physical Exam Narrative Intubated Richardson catheter with scant urine in tubing No significant pitting edema No cyanosis non-tunneled HD catheter right IJ dressing C/D/I S1s2 bilateral air entry abdomen non distended Assessment & Plan Assessment/Plan (1) OPAL (acute kidney injury): PLAN: -OPAL is likely due to ischemic ATN related to sepsis. The patient remains oliguric -Dialysis was initiated on 07/08/2021. essentially daily dialysis -oxygenation continues to worsen despite this. UF today. seen on treatment. upto 3 L negative today. Bp is borderline (2) Chronic kidney disease, stage 3a: PLAN: -Baseline serum creatinine is 1.4 mg/dL. (3) Immunosuppressed status: PLAN: -The patient is status post orthotopic liver transplantation. -On tacrolimus, CellCept, prednisone. CellCept is on hold as per transplant team recommendation due to COVID-19 infection. -The patient is also being followed by GI. (4) Acute respiratory failure with hypoxia: PLAN: -The patient is ventilator dependent. -She is being treated for COVID-19 pneumonia along with influenza B pneumonia.
--- NOTE | 2021-07-14 12:28 | PCM.PN.HOSP ---
Subjective Subjective Patient remains intubated 90% FiO2. Temperature profile was better T-max 100.7 Fahrenheit at 8 PM yesterday Objective Data Objective Data Vital Signs: Vital Signs Temp Pulse Resp BP Pulse Ox 99.4 F H 93 14 109/73 92 07/14/21 12:00 07/14/21 12:00 07/14/21 12:00 07/14/21 12:00 07/14/21 12:00 Oxygen Flow Rate (L/min) [ 3 AMBULATING with Oxygen #1] Oxygen Flow Rate (L/min) 100 Oxygen Delivery Method Mechanical Ventilator Weight: 226 lb 3.108 oz Body Mass Index (BMI) 40.8 Intake & Output: Intake and Output for Last 24 Hours 07/12/21 07/13/21 07/14/21 23:59 23:59 23:59 Intake Total 2295.96 / 2383.96 1116.46 / 1187.46 788.50 / 788.50 Output Total 1295 / 1295 105 / 155 50 / 50 Balance 1000.96 / 1088.96 1011.46 / 1032.46 738.50 / 738.50 Lab / Micro Data Result Diagrams: 07/14/21 04:45 07/14/21 04:45 Labs: Laboratory Results - last 24 hr 07/14/21 04:45: Random Vancomycin 20.8 H 07/14/21 04:45: Sodium 132 L, Potassium 4.2, Chloride 95 L, Carbon Dioxide 26.0, Anion Gap 11, BUN 51 H, Creatinine 3.38 H, Estim Creat Clear Calc 14.09, Est GFR (MDRD) Af Amer 18 L, Est GFR (MDRD) Non-Af 15 L, BUN/Creatinine Ratio 15.1, Glucose 128 H, Calcium 7.9 L 07/14/21 04:45: WBC 17.8 H, RBC 3.39 L, Hgb 9.5 L, Hct 29.5 L, MCV 87.0, MCH 28.0, MCHC 32.2, RDW Std Deviation 44.3 H, RDW Coeff of Tyrell 14.2, Plt Count 172, MPV 9.7, Immature Gran % (Auto) 1.700 H, Neut % (Auto) 86.3 H, Lymph % (Auto) 3.5 L, [place] % (Auto) 8.1, Eos % (Auto) 0.3, Baso % (Auto) 0.1, Absolute Neuts (auto) 15.4 H, Absolute Lymphs (auto) 0.62 L, Nucleated RBC % 0.2 Micro: Microbiology 07/11/21 15:00 Urine Catheter - Richardson Urine Culture - Preliminary Yeast 07/11/21 15:25 Sputum, Induced/Lukens Gram Stain - Final 07/11/21 15:25 Sputum, Induced/Lukens Respiratory Culture - Final Coag Negative Staph 07/06/21 11:20 Sputum, Induced/Lukens Gram Stain - Final 07/06/21 11:20 Sputum, Induced/Lukens Respiratory Culture - Final Culture exhibits no growth. 06/28/21 12:01 Blood Culture (Wb) - Right Hand Blood Culture - Final No growth in 5 days. 06/28/21 11:52 Blood Culture (Wb) - Left Hand Blood Culture - Final No growth in 5 days. 06/26/21 20:35 Urine, Clean Catch Streptococcus pneumoniae Antigen (M - Final 06/26/21 20:35 Urine, Clean Catch Legionella Antigen - Final 06/28/21 16:50 Mucosa - Nasopharyngeal Influenza Types A,B Direct FA (ROSEMARIE) - Final Influenzae B 06/26/21 20:35 Urine, Clean Catch Urine Culture - Final Escherichia coli Physical Exam Narrative General: Sedated on ventilator. BMI 39.7 kg/m? HEENT: Atraumatic, PERRLA, EOMI, Normocephalic Oral: ET and OG tube Neck: Supple, No JVD, Negative Carotid Bruits Lungs: Air entry equal bilaterally. On AC mode ventilator. Cardiovascular: Sinus rhythm, PVCs, normal S1, Normal S2, No murmurs Abdomen: Bowel Sounds sluggish, fecal management tube. Soft, Non Tender, Non-Distended status post liver transplant : No renal angle tenderness. No suprapubic tenderness. Extremities: Mild edema of lower extremities edema. Skin: No rashes, No breakdown Musculoskeletal: No Tenderness to Palpation of Joints or Extremities Neurological: Cranial nerves II-XII grossly intact, no focal deficit. Psych/Mental Status: Sedated. Assessment & Plan Assessment/Plan (1) Acute respiratory failure with hypoxia: (2) Influenza B: (3) COVID-19: (4) OPAL (acute kidney injury): (5) Hyperkalemia: PLAN: 1. Acute hypoxic respiratory failure due to bilateral COVID-19 pneumonia and bacterial secondary infection: 07/13: Patient having fever and on cooling blanket.. It was intubated on July 06. Before that patient was on AIRVO with worsening oxygenation and respiratory status which led to BiPAP and then intubated. Patient is on IV meropenem and vancomycin. Prior to that patient was on cefepime and vancomycin. Patient has leukocytosis. 07/14: No significant improvement, 90% FiO2 AC mode, PEEP 14. Vent day 9. On fentanyl drip 2. Autoimmune hepatitis status post liver transplant. Immunocompromised host. Serum tacrolimus level pending Continue tacrolimus, Bactrim and dexamethasone. Earlier on 07/03, mycophenolate was discontinued after nursing staff talked to the pricing coordinator in [facility]. Currently literature, mycophenolate not recommended during Covid infection because side effect of pancytopenia and lowering the immune status. 3. OPAL on CKD stage 3b: Creatinine level fluctuates, it was 1.34 on 07/05, gradually worsening to current 4.09. The patient's daughter said her creatinine has always been fluctuating because of interaction with different immunosuppression medications. Dialysis started on 07/08/202107/14: Seen by reservoir engineering consultant. Patient oliguric 55 mL last 24 hours. Dialysis today, up to 3 L fluid removal. Tacrolimus level is pending. Serum creatinine 3.38 4 hypothyroidism: Continue Synthroid 5. GERD, dyslipidemia and morbid obesity: VTE prophylaxis: Enoxaparin 30 mg SQ twice daily estimated creatinine clearance 39 mL/min.. Discontinue if platelet count drops less than 50,000 or hemoglobin less than 8 g% Total time of the visit including total time spent in counseling or coordination of care, (more than 50% of the total time, spent in obtaining medical information from nurses and other ancillary care providers,explaining to the patient about labs, imaging, diagnosis and management), discussion with consultants with complexity of immunosuppression and liver transplant, review of labs and imaging is 40 minutes. Charges/Coding Visit Charges Inpatient E&M: 50440 [facility] L3
[2021-07-14 12:35] LABS: Pathologist Review Reviewed
[2021-07-14] MEDS: Chlorhexidine 15 ML PO ×2 (12:46→23:00)
[2021-07-14] MEDS: Lactulose 20 GM/30 ML UDC GT (12:48)
[2021-07-14] MEDS: Cholecalciferol (VIT D3) 25 MCG TABLET (1,000 UNITS) 50 MCG GT (12:48)
[2021-07-14] MEDS: Ferrous Gluconate 324 MG Tablet PO (12:48)
[2021-07-14] MEDS: dexAMETHasone 10 MG/ML Vial 6 MG IV (12:49)
[2021-07-14] MEDS: rifAXIMin 550 MG Tablet GT ×2 (12:49→23:00)
[2021-07-14] MEDS: Levothyroxine 88 MCG Tablet GT (12:50)
[2021-07-14] MEDS: Senna/Docusate Sodium 1 Tablet GT (12:50)
[2021-07-14] MEDS: Calcium (Elemental) 500 MG Tablet GT ×2 (12:50→23:00)
[2021-07-14] MEDS: Ascorbic Acid 500 MG Tablet GT ×2 (12:50→17:39)
[2021-07-14] MEDS: Ursodiol 250 MG Tablet GT ×2 (12:51→23:00)
[2021-07-14] MEDS: Polyethylene Glycol 3350 17 GM PACKET GT (12:51)
[2021-07-14] MEDS: Tacrolimus 0.5 MG Capsule GT ×2 (12:51→23:00)
[2021-07-14] MEDS: Tacrolimus Anhydrous 1 MG Capsule 2 MG GT ×2 (12:52→23:00)
[2021-07-14] MEDS: Aspirin 81 MG TAB.CHEW GT (13:32)
[2021-07-14] MEDS: Menthol/Lanolin/Calamine/Znox 113 GM Tube 1 APPLIC TOPICAL ×2 (13:32→23:42)
--- NOTE | 2021-07-14 16:24 | DIALYSIS ---
HD UF tx 3hrs completed at 1214. Pt tolerated well, pt stable. Total UF removed 2800ml. Report given to EDWARD Davidson.
[2021-07-14] MEDS: Vital AF 1.2 Cal Liquid 1,000 ML 25 ML GT (17:40)
--- NOTE | 2021-07-14 18:08 | NURSING ---
Review and agree w/ all Molly MORSE documentation
[2021-07-14] MEDS: Atorvastatin Calcium 10 MG Tablet GT (23:00)
[2021-07-15] VITALS (53 sets, daily range): BP systolic 76–148; BP diastolic 46–76; PULSE 63–97; RESP 16–33; TEMP 36.9–38.6; O2SAT 89–95
[2021-07-15] MEDS: guaiFENesin 10 ML UDC (200MG/10ML) 20 ML GT ×3 (01:10→09:03)
[2021-07-15] MEDS: 0.9% Saline Lock 10 ML Syringe IV (04:52)
[2021-07-15 04:58] LABS: Absolute Lymphocyte Count 0.45 X10^3/uL (0.83-4.51); Absolute Neutrophil Count 14.2 X10^3/uL (2.0-7.7); Basophil# 0.02 X10^3/uL; Basophil% 0.1 % (0-1); Eosinophil# 0.02 X10^3/uL; Eosinophils% 0.1 % (0-5); Hematocrit 28.4 % (37-47); Hemoglobin 9.2 g/dL (12.0-15.0); Lymphocyte # 0.45 X10^3/ul (0.83-4.51); Lymphocyte % 2.8 % (19-41); Mean Corp Hgb Conc 32.4 g/dL (32-36); Mean Corpuscular Hgb 28.1 pg (27.0-32.0); Mean Corpuscular Volume 86.9 fL (81-99); Mean Platelet Vol. 9.8 fl (6.2-12.0); Monocyte# 1.03 X10^3/uL; Monocyte% 6.5 % (0-10); NRBC Flagged by Analyzer 0.2 % (0-5); Neutrophil # 14.18 X10^3/uL (2.7-7.7); Neutrophil % 88.9 % (47-70); POSITIVE DIFFERENTIAL YES; Platelet Count 189 K/mm3 (150-450); RBC Distribution Width SD 43.8 fl (35.1-43.9); Red Blood Count 3.27 M/mm3 (4.2-5.4)
[2021-07-15 05:04] LABS: Differential Indicated SCAN CRITERIA MET
[2021-07-15] MEDS: Enoxaparin 30 MG/0.3 ML Syringe SC (05:04)
[2021-07-15 05:11] LABS: Vancomycin, Random Level 19.4 ug/mL (0.0-15.0)
[2021-07-15 05:35] LABS: Anion Gap 15 (5-15); BUN 86 mg/dL (7-18); BUN/Creat Ratio 17.3 RATIO (10-20); Calcium,Total 8.7 mg/dL (8.5-10.1); Chloride 93 mmol/L (98-107); Creatinine, Serum 4.97 mg/dL (0.55-1.02); EST Glomerular Filtration Rate 9 mL/min (>60); Est Glom Filt Rate - Afr Amer 11 mL/min (>60); Estimated Creatinine Clearance 9.58 ml/min; Glucose 136 mg/dL (74-106); Potassium 4.5 mmol/L (3.5-5.1); Sodium Level 131 mmol/L (136-145)
--- NOTE | 2021-07-15 06:18 | PCM.PN.INT ---
Assessment & Plan Assessment/Plan (1) COVID-19: (2) Influenza B: PLAN: RECOMMENDATIONS: 1. Continue mechanical ventilation and wean FiO2 for saturations greater than 90%. 2. Continue empiric antimicrobials. 3. Ongoing hemodialysis with volume removal, per nephrology recommendations. 4. Continue appropriate ICU prophylaxis. 5. Continue tube feeds as tolerated. 6. Await tacrolimus level results. 7. Ongoing goals of care discussion with the patient's family. IMPRESSIONS: 1. Acute hypoxemic respiratory failure secondary to COVID-19/influenza B The patient was initially admitted to the hospital on June 27 and subsequently tested positive for both COVID-19 and influenza. The patient is vaccinated at her baseline. However, she is immunosuppressed due to a history of a liver transplant. The patient's oxygenation status progressively worsened over the course of her hospitalization, ultimately culminating in intubation on July 06. She has completed a treatment course of Tamiflu. She has been continued on Decadron and prophylactic Lovenox. In light of recent fevers, the patient was also started on empiric antimicrobials. Continue to wean FiO2 to maintain saturations at or above 90%. Ongoing volume optimization through hemodialysis per nephrology recommendations. 2. Acute kidney injury Likely secondary to ischemic ATN in the setting of #1. Nephrology is currently following to assist with hemodialysis needs and volume removal. 3. Chronic baseline immunosuppressed state secondary to liver transplantation Continue baseline outpatient immunosuppressive regimen, with the exception of CellCept. Liver function profile remains within normal limits. Tacrolimus levels are still pending. Continuing Decadron to help with immunosuppression past the normal 10 days for COVID-19. 4. Morbid obesity/asthma/hypothyroidism/hyperlipidemia/GERD Complicates care, management, recovery and prognosis. Continue home medications as indicated. Poor overall prognosis. TIME: 33 minutes of critical care time, independent of procedures, was spent addressing the patient's acute hypoxemic respiratory failure secondary to COVID-19/influenza B, acute kidney injury, review of all data and collaboration with the care team. Subjective Subjective The patient was seen and examined at the bedside this morning. Events from the last 24 hours have been reviewed. Today is vent day #10. The patient is currently afebrile and hemodynamically stable. She remains on assist control mode mechanical ventilation with an FiO2 requirement of 65% and PEEP of 14. She remains sedated on fentanyl. The patient tolerated dialysis yesterday with 2.8 L of fluid removed. She has now documented to be overall net +8.8 L for the hospitalization. She remains on empiric antimicrobials. The patient is currently tolerant of tube feeds. Ammonia level this morning was noted to be 11.0. Tacrolimus levels are still pending. I did call and speak with the patient's daughters, both Margot and Tapan, this morning with regard to their mothers current clinical state and overall prognosis. I explained to them my concern that she would be unable to be weaned from invasive mechanical ventilatory support over the next 4 days. I also explained to them the idea that if we were to continue with aggressive care, this would typically entail the placement of a tracheostomy and PEG tube. The family is going to discuss these issues today as a group and come to a consensus as to how they wish to proceed. Objective Data Objective Data The patient's most recent lab work, culture data and imaging studies have all been personally reviewed. Coronavirus PCR was positive on June 26. Influenza screen was positive for flu B. Vital Signs: Vital Signs Temp Pulse Resp BP Pulse Ox 98.5 F 96 22 H 111/53 L 92 07/15/21 06:00 07/15/21 06:00 07/15/21 06:00 07/15/21 06:00 07/15/21 06:00 Oxygen Flow Rate (L/min) [ 3 AMBULATING with Oxygen #1] Oxygen Flow Rate (L/min) 100 Oxygen Delivery Method Mechanical Ventilator Weight: 100.7 kg Body Mass Index (BMI) 40.8 Intake & Output: Intake and Output for Last 24 Hours 07/13/21 07/14/21 07/15/21 23:59 23:59 23:59 Intake Total 1116.46 / 1187.46 1661.92 / 1681.92 317.75 / 317.75 Output Total 105 / 155 3565 / 3600 65 / 65 Balance 1011.46 / 1032.46 -1903.08 / -1918.08 252.75 / 252.75 Lab / Micro Data Attestation: I reviewed the patient's lab results. Result Diagrams: 07/15/21 04:45 07/15/21 04:45 Labs: Laboratory Results - last 24 hr 07/13/21 04:00: Diff Path Review Reviewed 07/15/21 04:45: Random Vancomycin 19.4 H 07/15/21 04:45: WBC 16.0 H, RBC 3.27 L, Hgb 9.2 L, Hct 28.4 L, MCV 86.9, MCH 28.1, MCHC 32.4, RDW Std Deviation 43.8, RDW Coeff of Tyrell 14.0, Plt Count 189, MPV 9.8, Immature Gran % (Auto) 1.600 H, Neut % (Auto) 88.9 H, Lymph % (Auto) 2.8 L, [place] % (Auto) 6.5, Eos % (Auto) 0.1, Baso % (Auto) 0.1, Absolute Neuts (auto) 14.2 H, Absolute Lymphs (auto) 0.45 L, Nucleated RBC % 0.2 07/15/21 04:45: Sodium 131 L, Potassium 4.5, Chloride 93 L, Carbon Dioxide 23.0, Anion Gap 15, BUN 86 H, Creatinine 4.97 H, Estim Creat Clear Calc 9.58, Est GFR (MDRD) Af Amer 11 L, Est GFR (MDRD) Non-Af 9 L, BUN/Creatinine Ratio 17.3, Glucose 136 H, Calcium 8.7 07/15/21 04:45: Ammonia 11.0 Micro: Microbiology 07/11/21 15:00 Urine Catheter - Richardson Urine Culture - Final Yeast, not Rosio albicans 07/11/21 15:25 Sputum, Induced/Lukens Gram Stain - Final 07/11/21 15:25 Sputum, Induced/Lukens Respiratory Culture - Final Coag Negative Staph 07/06/21 11:20 Sputum, Induced/Lukens Gram Stain - Final 07/06/21 11:20 Sputum, Induced/Lukens Respiratory Culture - Final Culture exhibits no growth. 06/28/21 12:01 Blood Culture (Wb) - Right Hand Blood Culture - Final No growth in 5 days. 06/28/21 11:52 Blood Culture (Wb) - Left Hand Blood Culture - Final No growth in 5 days. 06/26/21 20:35 Urine, Clean Catch Streptococcus pneumoniae Antigen (M - Final 06/26/21 20:35 Urine, Clean Catch Legionella Antigen - Final 06/28/21 16:50 Mucosa - Nasopharyngeal Influenza Types A,B Direct FA (ROSEMARIE) - Final Influenzae B 01/21/22 20:35 Urine, Clean Catch Urine Culture - Final Escherichia coli Physical Exam Const Constitutional Narrative: Intubated, sedated and mechanically ventilated. No ventilator dyssynchrony. Nutritional Appearance: morbidly obese HEENT normocephalic and head/scalp atraumatic Mouth: endotracheal tube in place and OG tube in place Eyes PERRL and EOMs intact bilaterally Neck supple General: trachea midline and CVC in place Chest inspection of chest normal Resp Effort and Inspection: tachypneic Auscultation: diminished lung sounds; Negative for rales, rhonchi or wheezes Cardio regular rate, regular rhythm, S1 normal heart sound and S2 normal heart sound Heart Sounds: murmur GI normal to inspection, nondistended, normoactive bowel sounds Extremity no clubbing, cyanosis or edema Skin no rashes or lesions noted Neuro Sensorium / Orientation: sedated on vent Charges/Coding Procedures Hospitalists Procedures: [id number] Critial Care 1st Hr
[2021-07-15] MEDS: Aspirin 81 MG TAB.CHEW GT (08:53)
[2021-07-15] MEDS: Ascorbic Acid 500 MG Tablet GT (08:53)
[2021-07-15] MEDS: Menthol/Lanolin/Calamine/Znox 113 GM Tube 1 APPLIC TOPICAL ×2 (08:54→20:10)
[2021-07-15] MEDS: Smz/Tmp Ds Tablet 1 TABLET GT (08:54)
[2021-07-15] MEDS: Lactulose 20 GM/30 ML UDC GT (08:54)
[2021-07-15] MEDS: Chlorhexidine 15 ML PO ×2 (08:54→20:10)
[2021-07-15] MEDS: Calcium (Elemental) 500 MG Tablet GT ×2 (08:55→20:11)
[2021-07-15] MEDS: Tacrolimus Anhydrous 1 MG Capsule 2 MG GT ×2 (08:55→20:11)
[2021-07-15] MEDS: dexAMETHasone 10 MG/ML Vial 6 MG IV (08:55)
[2021-07-15] MEDS: Ursodiol 250 MG Tablet GT ×2 (08:56→20:12)
[2021-07-15] MEDS: Tacrolimus 0.5 MG Capsule GT ×2 (08:56→20:12)
[2021-07-15] MEDS: Levothyroxine 88 MCG Tablet GT (08:56)
[2021-07-15] MEDS: rifAXIMin 550 MG Tablet GT ×2 (08:57→20:12)
[2021-07-15] MEDS: Cholecalciferol (VIT D3) 25 MCG TABLET (1,000 UNITS) 50 MCG GT (08:57)
--- NOTE | 2021-07-15 10:40 | PN.HOSP_ITS ---
Subjective Subjective Patient intubated on FiO2 65%, PEEP 14. Fever is controlled. Objective Data Objective Data Vital Signs: Vital Signs Temp Pulse Resp BP Pulse Ox 98.5 F 94 20 H 118/63 91 07/15/21 10:00 07/15/21 10:00 07/15/21 10:00 07/15/21 10:00 07/15/21 10:00 Oxygen Flow Rate (L/min) [ 3 AMBULATING with Oxygen #1] Oxygen Flow Rate (L/min) 100 Oxygen Delivery Method Mechanical Ventilator Weight: 222 lb 0.088 oz Body Mass Index (BMI) 40.8 Intake & Output: Intake and Output for Last 24 Hours 07/13/21 07/14/21 07/15/21 23:59 23:59 23:59 Intake Total 1116.46 / 1187.46 1661.92 / 1681.92 646.88 / 646.88 Output Total 2605 / 2655 3565 / 3600 65 / 65 Balance -1488.54 / -1467.54 -1903.08 / -1918.08 581.88 / 581.88 Lab / Micro Data Result Diagrams: 07/15/21 04:45 07/15/21 04:45 Labs: Laboratory Results - last 24 hr 07/13/21 04:00: Diff Path Review Reviewed 07/15/21 04:45: Random Vancomycin 19.4 H 07/15/21 04:45: WBC 16.0 H, RBC 3.27 L, Hgb 9.2 L, Hct 28.4 L, MCV 86.9, MCH 28.1, MCHC 32.4, RDW Std Deviation 43.8, RDW Coeff of Tyrell 14.0, Plt Count 189, M PV 9.8, Immature Gran % (Auto) 1.600 H, Neut % (Auto) 88.9 H, Lymph % (Auto) 2.8 L, [place] % (Auto) 6.5, Eos % (Auto) 0.1, Baso % (Auto) 0.1, Absolute Neuts (auto) 14.2 H, Absolute Lymphs (auto) 0.45 L, Nucleated RBC % 0.2 07/15/21 04:45: Sodium 131 L, Potassium 4.5, Chloride 93 L, Carbon Dioxide 23.0, Anion Gap 15, BUN 86 H, Creatinine 4.97 H, Estim Creat Clear Calc 9.58, Est GFR (MDRD) Af Amer 11 L, Est GFR (MDRD) Non-Af 9 L, BUN/Creatinine Ratio 17.3, Glucose 136 H, Calcium 8.7 07/15/21 04:45: Ammonia 11.0 Micro: Microbiology 07/11/21 15:00 Urine Catheter - Richardson Urine Culture - Final Yeast, not Rosio albicans 07/11/21 15:25 Sputum, Induced/Lukens Gram Stain - Final 07/11/21 15:25 Sputum, Induced/Lukens Respiratory Culture - Final Coag Negative Staph 07/06/21 11:20 Sputum, Induced/Lukens Gram Stain - Final 07/06/21 11:20 Sputum, Induced/Lukens Respiratory Culture - Final Culture exhibits no growth. 06/28/21 12:01 Blood Culture (Wb) - Right Hand Blood Culture - Final No growth in 5 days. 06/28/21 11:52 Blood Culture (Wb) - Left Hand Blood Culture - Final No growth in 5 days. 06/26/21 20:35 Urine, Clean Catch Streptococcus pneumoniae Antigen (M - Final 06/26/21 20:35 Urine, Clean Catch Legionella Antigen - Final 06/28/21 16:50 Mucosa - Nasopharyngeal Influenza Types A,B Direct FA (ROSEMARIE) - Final Influenzae B 06/26/21 20:35 Urine, Clean Catch Urine Culture - Final Escherichia coli Physical Exam Narrative General: Sedated on ventilator. BMI 39.7 kg/m? HEENT: Opens eyes sluggish, atraumatic, Normocephalic Oral: ET and OG tube Neck: Supple, No JVD, Negative Carotid Bruits Lungs: Air entry equal bilaterally. On AC mode ventilator. Cardiovascular: Sinus rhythm, PVCs, normal S1, Normal S2, No murmurs Abdomen: Bowel Sounds sluggish, fecal management tube. Soft, Non Tender, Non- Distended status post liver transplant : No renal angle tenderness. No suprapubic tenderness. Extremities: Mild edema of lower extremities edema. Skin: No rashes, No breakdown Musculoskeletal: No Tenderness to Palpation of Joints or Extremities Neurological: Cranial nerves II-XII grossly intact, sometimes follows simple commands. Psych/Mental Status: Sedated. Assessment & Plan Assessment/Plan (1) Acute respiratory failure with hypoxia: (2) Influenza B: (3) COVID-19: (4) OPAL (acute kidney injury): (5) Hyperkalemia: PLAN: 1. Acute hypoxic respiratory failure due to bilateral COVID-19 pneumonia and bacterial secondary infection: 07/13: Patient having fever and on cooling blanket.. She was intubated on July 06. Before that patient was on AIRVO with worsening oxygenation and respiratory status which led to BiPAP and then intubated. Patient is on IV meropenem and vancomycin. Prior to that patient was on cefepime and vancomycin. Patient has leukocytosis. 07/14: No significant improvement, 90% FiO2 AC mode, PEEP 14. Vent day 9. On fentanyl drip 07/15: Vent day #10. Manager Medicaid talk to patient's daughters and they are trying to discuss among themselves and reach consensus about next course of action regarding continuation of aggressive management or withdrawal of care.If family want to continue aggressive management, will need preparation for tracheostomy and PEG tube 2. Autoimmune hepatitis status post liver transplant. Immunocompromised host. Serum tacrolimus level pending Continue tacrolimus, Bactrim and dexamethasone. Earlier on 07/03, mycophenolate was discontinued after nursing staff talked to the hereditary cancer program coordinator in [facility]. Currently literature, mycophenolate not recommended during Covid infection because side effect of pancytopenia and lowering the immune status. 3. OPAL on CKD stage 3b: Creatinine level fluctuates, it was 1.34 on 07/05, gradually worsening to current 4.09. The patient's daughter said her creatinine has always been fluctuating because of interaction with different immunosuppression medications. Dialysis started on 07/08/202107/14: Seen by machine heel builder. Patient oliguric 55 mL last 24 hours. Dialysis today, up to 3 L fluid removal. Tacrolimus level is pending. Serum creatinine 3.38 07/15: Overall subcutaneous edema has improved after dialysis. Dialysis is scheduled as per machine heel builder. 4 hypothyroidism: Continue Synthroid 5. GERD, dyslipidemia and morbid obesity: VTE prophylaxis: Enoxaparin 30 mg SQ twice daily estimated creatinine clearance 39 mL/min.. Discontinue if platelet count drops less than 50,000 or hemoglobin less than 8 g% Total time of the visit including total time spent in counseling or coordination of care, (more than 50% of the total time, spent in obtaining medical information from nurses and other ancillary care providers,explaining to the patient about labs, imaging, diagnosis and management), discussion with consultants with complexity of immunosuppression and liver transplant, review of labs and imaging is 40 minutes. Charges/Coding Visit Charges Inpatient E&M: 53613 [facility] L3
--- NOTE | 2021-07-15 10:44 | PCM.RX.CS ---
Consult Pharmacy has been consulted to manage selected antiobiotic: Vancomycin Type of Consult: Follow-up Suspected Infection: Other Prior Doses of Antibiotics Received/Current Regimen: Last dose was 2000mg iv on 07.12.21. Labs: Sodium 131 mmol/L (136-145) L 07/15/21 04:45 Potassium 4.5 mmol/L (3.5-5.1) 07/15/21 04:45 Chloride 93 mmol/L (98-107) L 07/15/21 04:45 Carbon Dioxide 23.0 mmol/L (21.0-32.0) 07/15/21 04:45 Anion Gap 15 (5-15) 07/15/21 04:45 BUN 86 mg/dL (7-18) H 07/15/21 04:45 Creatinine 4.97 mg/dL (0.55-1.02) H 07/15/21 04:45 Est GFR (MDRD) Af Amer 11 mL/min (>60) L 07/15/21 04:45 Est GFR (MDRD) Non-Af 9 mL/min (>60) L 07/15/21 04:45 BUN/Creatinine Ratio 17.3 RATIO (10-20) 07/15/21 04:45 Glucose 136 mg/dL (74-106) H 07/15/21 04:45 Vancomycin Trough 14.0 ug/mL (5.0-15.0) 07/07/21 11:30 Random Vancomycin 19.4 ug/mL (0.0-15.0) H 07/15/21 04:45 Microbiology: Microbiology 07/11/21 15:00 Urine Catheter - Richardson Urine Culture - Final Yeast, not Rosio albicans 07/11/21 15:25 Sputum, Induced/Lukens Gram Stain - Final 07/11/21 15:25 Sputum, Induced/Lukens Respiratory Culture - Final Coag Negative Staph 07/06/21 11:20 Sputum, Induced/Lukens Gram Stain - Final 07/06/21 11:20 Sputum, Induced/Lukens Respiratory Culture - Final Culture exhibits no growth. 06/28/21 12:01 Blood Culture (Wb) - Right Hand Blood Culture - Final No growth in 5 days. 06/28/21 11:52 Blood Culture (Wb) - Left Hand Blood Culture - Final No growth in 5 days. 06/26/21 20:35 Urine, Clean Catch Streptococcus pneumoniae Antigen (M - Final 06/26/21 20:35 Urine, Clean Catch Legionella Antigen - Final 06/28/21 16:50 Mucosa - Nasopharyngeal Influenza Types A,B Direct FA (ROSEMARIE) - Final Influenzae B 06/26/21 20:35 Urine, Clean Catch Urine Culture - Final Escherichia coli Weight used for dosin.7 kg Estimated Creatinine Clearance: ~10 ml/min Goal Trough: 15-20 mcg/mL Pharmacy Plan for Drug Dosing: Random level today was 19.4 @0445 and this is ~66 hrs post dose. Per protocol, have ordered 500mg iv x 1 to be given post dialysis today. Another random level ordered for 07.17.21 in AM. Pharmacy Service will continue to monitor and adjust dosing as required. Follow-Up Labs: Trough Vancomycin - random level 07.17.21 @0600
[2021-07-15] MEDS: Vital AF 1.2 Cal Liquid 1,000 ML 60 ML GT (11:13)
--- NOTE | 2021-07-15 12:32 | PCM.PN.REN ---
Subjective Subjective no new events Objective Data Objective Data Vital Signs: Vital Signs Temp Pulse Resp BP Pulse Ox 98.5 F 94 22 H 130/59 H 91 07/15/21 12:00 07/15/21 12:00 07/15/21 12:00 07/15/21 12:00 07/15/21 12:00 Oxygen Flow Rate (L/min) [ 3 AMBULATING with Oxygen #1] Oxygen Flow Rate (L/min) 100 Oxygen Delivery Method Mechanical Ventilator Weight: 100.7 kg Body Mass Index (BMI) 40.8 Intake & Output: Intake and Output for Last 24 Hours 07/13/21 07/14/21 07/15/21 23:59 23:59 23:59 Intake Total 1116.46 / 1187.46 1661.92 / 1681.92 963.38 / 963.38 Output Total 2605 / 2655 3565 / 3600 135 / 135 Balance -1488.54 / -1467.54 -1903.08 / -1918.08 828.38 / 828.38 Lab / Micro Data Result Diagrams: 07/15/21 04:45 07/15/21 04:45 Labs: Laboratory Results - last 24 hr 07/13/21 04:00: Diff Path Review Reviewed 07/15/21 04:45: Random Vancomycin 19.4 H 07/15/21 04:45: WBC 16.0 H, RBC 3.27 L, Hgb 9.2 L, Hct 28.4 L, MCV 86.9, MCH 28.1, MCHC 32.4, RDW Std Deviation 43.8, RDW Coeff of Tyrell 14.0, Plt Count 189, MPV 9.8, Immature Gran % (Auto) 1.600 H, Neut % (Auto) 88.9 H, Lymph % (Auto) 2.8 L, [place] % (Auto) 6.5, Eos % (Auto) 0.1, Baso % (Auto) 0.1, Absolute Neuts (auto) 14.2 H, Absolute Lymphs (auto) 0.45 L, Nucleated RBC % 0.2 07/15/21 04:45: Sodium 131 L, Potassium 4.5, Chloride 93 L, Carbon Dioxide 23.0, Anion Gap 15, BUN 86 H, Creatinine 4.97 H, Estim Creat Clear Calc 9.58, Est GFR (MDRD) Af Amer 11 L, Est GFR (MDRD) Non-Af 9 L, BUN/Creatinine Ratio 17.3, Glucose 136 H, Calcium 8.7 07/15/21 04:45: Ammonia 11.0 Micro: Microbiology 07/11/21 15:00 Urine Catheter - Richardson Urine Culture - Final Yeast, not Rosio albicans 07/11/21 15:25 Sputum, Induced/Lukens Gram Stain - Final 07/11/21 15:25 Sputum, Induced/Lukens Respiratory Culture - Final Coag Negative Staph 07/06/21 11:20 Sputum, Induced/Lukens Gram Stain - Final 07/06/21 11:20 Sputum, Induced/Lukens Respiratory Culture - Final Culture exhibits no growth. 06/28/21 12:01 Blood Culture (Wb) - Right Hand Blood Culture - Final No growth in 5 days. 06/28/21 11:52 Blood Culture (Wb) - Left Hand Blood Culture - Final No growth in 5 days. 06/26/21 20:35 Urine, Clean Catch Streptococcus pneumoniae Antigen (M - Final 06/26/21 20:35 Urine, Clean Catch Legionella Antigen - Final 06/28/21 16:50 Mucosa - Nasopharyngeal Influenza Types A,B Direct FA (ROSEMARIE) - Final Influenzae B 06/26/21 20:35 Urine, Clean Catch Urine Culture - Final Escherichia coli Physical Exam Narrative exam minimized due to covid Assessment & Plan Assessment/Plan (1) OPAL (acute kidney injury): PLAN: -OPAL is likely due to ischemic ATN related to sepsis. The patient remains oliguric -Dialysis was initiated on 07/08/2021. essentially daily dialysis -HD today possible trach as per ICU (2) Chronic kidney disease, stage 3a: PLAN: -Baseline serum creatinine is 1.4 mg/dL. (3) Immunosuppressed status: PLAN: -The patient is status post orthotopic liver transplantation. -On tacrolimus, CellCept, prednisone. CellCept is on hold as per transplant team recommendation due to COVID-19 infection. -The patient is also being followed by GI. (4) Acute respiratory failure with hypoxia: PLAN: -The patient is ventilator dependent. -She is being treated for COVID-19 pneumonia along with influenza B pneumonia.
--- NOTE | 2021-07-15 13:12 | PCM.PN.ID ---
Physical Exam Narrative On vent, low grade fever Const no apparent distress Resp Effort and Inspection: mechanically ventilated Auscultation: diminished lung sounds Cardio regular rate and regular rhythm GI non-tender and non-distended Skin no rashes or lesions noted ID ID: Route of nutrition/ use of supplements: [] Nutritional Intake: [] IV Site: [] Richardson Catheter: [] Assessment & Plan Assessment/Plan (1) CKD (chronic kidney disease) stage 3, GFR 30-59 ml/min: (2) Liver transplant recipient: (3) Hypoxia: (4) COVID-19: PLAN: Sick for approximately 3 weeks prior to admit. Covid vaccine x3. Also flu B Ag (+). On cellcept, tacro, pred, bactrim at home with h/o liver transplant. Not candidate for baricitinib due to liver transplant. On dex here and completed empiric course of cefepime. Ucx with ecoli, 80-100k. Completed 5 days of tamiflu for flu coverage. Remains intubated. Worsening OPAL, now on HD. New fevers, started on empiric vanc/eli 2/6. O2 slowly improving. Sputum with some CoNS. Will follow (5) Influenza B:
[2021-07-15 13:43] LABS: Tacrolimus (FK506) 3.7 ng/mL (2.0-20.0)
--- NOTE | 2021-07-15 15:25 | CHAPLAIN ---
Type of Pastoral Visit _x__ Initial Visit ___ Follow-up Visit ___ On-call Visit ___ General Patient Visit ___ Spiritual Assessment ___ Family Conference ___ Bereavement ___ Rapid Response ___ Code Blue ___ Other (describe below) Pastoral Care Referral From ___ Patient ___ Family ___ Nurse ___ Physician ___ College Intern ___ Switch Technician _x__ Other (describe below) Sacrament/Intervention ___ Active listening ___ Anointing ___ Druze ___ Bereavement ___ Communion ___ Nuvia exploration ___ ___ Life review ___ Prayer ___ Reconciliation ___ Sacrament of Sick ___ Supportive presence ___ Wedding _x__ Other (describe below) Pastoral Comments patient is still on vent but is out of COVID isolation; no family has been present during this shift or during others worked by this pocket stitcher; left a calling card and gave brief prayer at bedside
[2021-07-15] MEDS: Vancomycin IV 500 MG/100 ML BAG 100 MG IV (18:56)
--- NOTE | 2021-07-15 19:07 | DIALYSIS ---
Hemodialysis x4 hours completed at 1855 on a 2K bath, tolerated poorly, Levophed titrated to assist with BP and fluid removal, UF 1000mL, Levo started at start of dialysis (BP 80/47), sequential last hour of tx, accessed via right neck temporary dialysis catheter, worked well with lines reversed due to sticky pull arterial port, next tx per nephrology
[2021-07-15] MEDS: Atorvastatin Calcium 10 MG Tablet GT (20:11)
[2021-07-15] MEDS: Acetaminophen 650 MG/20 ML UDC GT (20:30)
[2021-07-15] MEDS: Dexmedetomidine 1,000 mcg in 0.9% NS 240 mL 12.6 MCG CONT INF (23:00)
[2021-07-16] VITALS (48 sets, daily range): BP systolic 69–164; BP diastolic 45–102; PULSE 70–114; RESP 21–72; TEMP 37.6–39.2; O2SAT 86–95
[2021-07-16 04:20] LABS: Absolute Lymphocyte Count 0.62 X10^3/uL (0.83-4.51); Absolute Neutrophil Count 13.4 X10^3/uL (2.0-7.7); Basophil# 0.02 X10^3/uL; Basophil% 0.1 % (0-1); Eosinophil# 0.04 X10^3/uL; Eosinophils% 0.3 % (0-5); Hematocrit 28.8 % (37-47); Hemoglobin 9.6 g/dL (12.0-15.0); Lymphocyte # 0.62 X10^3/ul (0.83-4.51); Lymphocyte % 3.9 % (19-41); Mean Corp Hgb Conc 33.3 g/dL (32-36); Mean Corpuscular Hgb 28.8 pg (27.0-32.0); Mean Corpuscular Volume 86.5 fL (81-99); Mean Platelet Vol. 9.4 fl (6.2-12.0); Monocyte# 1.15 X10^3/uL; Monocyte% 7.3 % (0-10); NRBC Flagged by Analyzer 0.6 % (0-5); Neutrophil # 13.37 X10^3/uL (2.7-7.7); Neutrophil % 85.2 % (47-70); Platelet Count 213 K/mm3 (150-450); RBC Distribution Width CV 14.3 % (11.6-14.6); RBC Distribution Width SD 43.5 fl (35.1-43.9); Red Blood Count 3.33 M/mm3 (4.2-5.4); White Blood Count 15.7 K/mm3 (4.4-11.0)
[2021-07-16 04:35] LABS: Anion Gap 10 (5-15); BUN 53 mg/dL (7-18); BUN/Creat Ratio 16.7 RATIO (10-20); Chloride 94 mmol/L (98-107); Creatinine, Serum 3.17 mg/dL (0.55-1.02); EST Glomerular Filtration Rate 16 mL/min (>60); Est Glom Filt Rate - Afr Amer 19 mL/min (>60); Estimated Creatinine Clearance 15.03 ml/min; Glucose 136 mg/dL (74-106); Potassium 3.7 mmol/L (3.5-5.1); Sodium Level 131 mmol/L (136-145)
[2021-07-16] MEDS: Enoxaparin 30 MG/0.3 ML Syringe SC (05:35)
[2021-07-16] MEDS: Acetaminophen 650 MG/20 ML UDC GT ×2 (05:39→14:38)
--- NOTE | 2021-07-16 06:38 | PN.CC_ITS ---
Assessment & Plan Assessment/Plan (1) COVID-19: (2) Influenza B: PLAN: RECOMMENDATIONS: 1. Continue mechanical ventilation and wean FiO2 for saturations greater than 90%. 2. Continue empiric antimicrobials. 3. Ongoing hemodialysis with volume removal, per nephrology recommendations. 4. Continue appropriate ICU prophylaxis. 5. Continue tube feeds as tolerated. 6. Continue vasopressor support to maintain a mean arterial pressure at or above 65 mmHg. IMPRESSIONS: 1. Acute hypoxemic respiratory failure secondary to COVID-19/influenza B The patient was initially admitted to the hospital on June 27 and subsequently tested positive for both COVID-19 and influenza. The patient is vaccinated at her baseline. However, she is immunosuppressed due to a history of a liver transplant. The patient's oxygenation status progressively worsened over the course of her hospitalization, ultimately culminating in intubation on July 06. She has completed a treatment course of Tamiflu. She has been continued on Decadron and prophylactic Lovenox. In light of recent fevers, the patient was also started on empiric antimicrobials. Continue to wean FiO2 to maintain saturations at or above 90%. Ongoing volume optimization through hemodialysis per nephrology recommendations. The patient's family is agreeable to tracheostomy, if clinically indicated. 2. Distributive shock Likely multifactorial with underlying infection and hemodynamic effects of sedative medication use contributing. Continue vasopressor support as ordered to maintain a mean arterial pressure at or above 65 mmHg. 3. Acute kidney injury Likely secondary to ischemic ATN in the setting of #1. Nephrology is currently following to assist with hemodialysis needs and volume removal. 4. Chronic baseline immunosuppressed state secondary to liver transplantation Continue baseline outpatient immunosuppressive regimen, with the exception of CellCept. Liver function profile remains within normal limits. Tacrolimus levels were within normal limits. Continuing Decadron to help with immunosuppression past the normal 10 days for COVID-19. 5. Morbid obesity/asthma/hypothyroidism/hyperlipidemia/GERD Complicates care, management, recovery and prognosis. Continue home medications as indicated. Poor overall prognosis. TIME: 32 minutes of critical care time, independent of procedures, was spent addressing the patient's acute hypoxemic respiratory failure secondary to COVID- 19/influenza B, distributive shock, acute kidney injury, review of all data and collaboration with the care team. Subjective Subjective The patient was seen and examined at the bedside this morning. Events from the last 24 hours have been reviewed. Today is day #11. The patient is currently requiring Levophed to maintain hemodynamic stability. She remains on assist control mode mechanical ventilation with an FiO2 requirement of 65% and PEEP of 14. The patient underwent dialysis again yesterday with 1 L of fluid removed. She is currently sedated on fentanyl and Precedex. She is currently tolerating tube feeds. The patient is documented to be overall net +6.7 L for the hospitalization. The patient remains on empiric broad-spectrum antimicrobials. I did speak with the patient's daughters yesterday regarding overall prognosis and goals of care. Following a family discussion, they are all in agreement to proceed with tracheostomy, if clinically indicated. Objective Data Objective Data The patient's most recent lab work, culture data and imaging studies have all been personally reviewed. Coronavirus PCR was positive on June 26. Influenza screen was positive for flu B. Vital Signs: Vital Signs Temp Pulse Resp BP Pulse Ox 99.7 F H 84 22 H 131/68 H 92 07/16/21 06:00 07/16/21 06:00 07/16/21 06:00 07/16/21 06:00 07/16/21 06:00 Oxygen Flow Rate (L/min) [ 3 AMBULATING with Oxygen #1] Oxygen Flow Rate (L/min) 100 Oxygen Delivery Method Mechanical Ventilator Weight: 101.8 kg Body Mass Index (BMI) 40.8 Intake & Output: Intake and Output for Last 24 Hours 07/14/21 07/15/21 07/16/21 23:59 23:59 23:59 Intake Total 1661.92 / 1681.92 2048.24 / 2188.34 515.42 / 515.42 Output Total 3565 / 3600 1165 / 1215 50 / 50 Balance -1903.08 / -1918.08 883.24 / 973.34 465.42 / 465.42 Lab / Micro Data Attestation: I reviewed the patient's lab results. Result Diagrams: 07/16/21 04:05 07/16/21 04:05 Labs: Laboratory Results - last 24 hr 07/10/21 03:45: Tacrolimus 3.7 07/16/21 04:05: WBC 15.7 H, RBC 3.33 L, Hgb 9.6 L, Hct 28.8 L, MCV 86.5, MCH 28.8, MCHC 33.3, RDW Std Deviation 43.5, RDW Coeff of Tyrell 14.3, Plt Count 213, MPV 9.4, Immature Gran % (Auto) 3.200 H, Neut % (Auto) 85.2 H, Lymph % (Auto) 3.9 L, [place] % (Auto) 7.3, Eos % (Auto) 0.3, Baso % (Auto) 0.1, Absolute Neuts (auto) 13.4 H, Absolute Lymphs (auto) 0.62 L, Nucleated RBC % 0.6 07/16/21 04:05: Sodium 131 L, Potassium 3.7, Chloride 94 L, Carbon Dioxide 27.0, Anion Gap 10, BUN 53 H, Creatinine 3.17 H, Estim Creat Clear Calc 15.03, Est GFR (MDRD) Af Amer 19 L, Est GFR (MDRD) Non-Af 16 L, BUN/Creatinine Ratio 16.7, Glucose 136 H, Calcium 8.0 L Micro: Microbiology 07/11/21 15:00 Urine Catheter - Richardson Urine Culture - Final Yeast, not Rosio albicans 07/11/21 15:25 Sputum, Induced/Lukens Gram Stain - Final 07/11/21 15:25 Sputum, Induced/Lukens Respiratory Culture - Final Coag Negative Staph 07/06/21 11:20 Sputum, Induced/Lukens Gram Stain - Final 07/06/21 11:20 Sputum, Induced/Lukens Respiratory Culture - Final Culture exhibits no growth. 06/28/21 12:01 Blood Culture (Wb) - Right Hand Blood Culture - Final No growth in 5 days. 06/28/21 11:52 Blood Culture (Wb) - Left Hand Blood Culture - Final No growth in 5 days. 06/26/21 20:35 Urine, Clean Catch Streptococcus pneumoniae Antigen (M - Final 06/26/21 20:35 Urine, Clean Catch Legionella Antigen - Final 06/28/21 16:50 Mucosa - Nasopharyngeal Influenza Types A,B Direct FA (ROSEMARIE) - Final Influenzae B 06/26/21 20:35 Urine, Clean Catch Urine Culture - Final Escherichia coli Physical Exam Const Constitutional Narrative: Intubated, sedated and mechanically ventilated. No ventilator dyssynchrony. Nutritional Appearance: morbidly obese HEENT normocephalic and head/scalp atraumatic Mouth: endotracheal tube in place and OG tube in place Eyes PERRL and EOMs intact bilaterally Neck supple General: trachea midline and CVC in place Chest inspection of chest normal Resp Effort and Inspection: tachypneic Auscultation: diminished lung sounds; Negative for rales, rhonchi or wheezes Cardio regular rate, regular rhythm, S1 normal heart sound and S2 normal heart sound Heart Sounds: murmur GI normal to inspection, nondistended, normoactive bowel sounds Extremity no clubbing, cyanosis or edema Skin no rashes or lesions noted Neuro Sensorium / Orientation: sedated on vent Charges/Coding Procedures Hospitalists Procedures: 47950 Critial Care 1st Hr
--- NOTE | 2021-07-16 07:37 | PN.HOSP_ITS ---
Subjective Subjective Follow-up for acute hypoxic respiratory failure and distributive shock. Patient on mechanical ventilator 65 to 70% FiO2. Fever, T-max 101.8 Fahrenheit. Patient was started on Levophed drip yesterday Objective Data Objective Data Vital Signs: Vital Signs Temp Pulse Resp BP Pulse Ox 100.1 F H 70 72 H 105/58 L 95 07/16/21 07:00 07/16/21 07:17 07/16/21 07:17 07/16/21 07:00 07/16/21 07:17 Oxygen Flow Rate (L/min) [ 3 AMBULATING with Oxygen #1] Oxygen Flow Rate (L/min) 100 Oxygen Delivery Method Mechanical Ventilator Weight: 224 lb 6.889 oz Body Mass Index (BMI) 40.8 Intake & Output: Intake and Output for Last 24 Hours 07/14/21 07/15/21 07/16/21 23:59 23:59 23:59 Intake Total 1661.92 / 1681.92 2048.24 / 2188.34 1128.47 / 1128.47 Output Total 3565 / 3600 1165 / 1215 100 / 100 Balance -1903.08 / -1918.08 883.24 / 973.34 1028.47 / 1028.47 Lab / Micro Data Result Diagrams: 07/16/21 04:05 07/16/21 04:05 Labs: Laboratory Results - last 24 hr 07/10/21 03:45: Tacrolimus 3.7 07/16/21 04:05: WBC 15.7 H, RBC 3.33 L, Hgb 9.6 L, Hct 28.8 L, MCV 86.5, MCH 28.8, MCHC 33.3, RDW Std Deviation 43.5, RDW Coeff of Tyrell 14.3, Plt Count 213, MPV 9.4, Immature Gran % (Auto) 3.200 H, Neut % (Auto) 85.2 H, Lymph % (Auto) 3.9 L, Livingston % (Auto) 7.3, Eos % (Auto) 0.3, Baso % (Auto) 0.1, Absolute Neuts (auto) 13.4 H, Absolute Lymphs (auto) 0.62 L, Nucleated RBC % 0.6 07/16/21 04:05: Sodium 131 L, Potassium 3.7, Chloride 94 L, Carbon Dioxide 27.0, Anion Gap 10, BUN 53 H, Creatinine 3.17 H, Estim Creat Clear Calc 15.03, Est GFR (MDRD) Af Amer 19 L, Est GFR (MDRD) Non-Af 16 L, BUN/Creatinine Ratio 16.7, Glucose 136 H, Calcium 8.0 L Micro: Microbiology 07/11/21 15:00 Urine Catheter - Richardson Urine Culture - Final Yeast, not Rosio albicans 07/11/21 15:25 Sputum, Induced/Lukens Gram Stain - Final 07/11/21 15:25 Sputum, Induced/Lukens Respiratory Culture - Final Coag Negative Staph 07/06/21 11:20 Sputum, Induced/Lukens Gram Stain - Final 07/06/21 11:20 Sputum, Induced/Lukens Respiratory Culture - Final Culture exhibits no growth. 06/28/21 12:01 Blood Culture (Wb) - Right Hand Blood Culture - Final No growth in 5 days. 06/28/21 11:52 Blood Culture (Wb) - Left Hand Blood Culture - Final No growth in 5 days. 06/26/21 20:35 Urine, Clean Catch Streptococcus pneumoniae Antigen (M - Alison l 06/26/21 20:35 Urine, Clean Catch Legionella Antigen - Final 06/28/21 16:50 Mucosa - Nasopharyngeal Influenza Types A,B Direct FA (ROSEMARIE) - Final Influenzae B 06/26/21 20:35 Urine, Clean Catch Urine Culture - Final Escherichia coli Physical Exam Narrative General: Minimally responsive, sedated on ventilator. BMI 39.7 kg/m? HEENT: Opens eyes sluggish, atraumatic, Normocephalic Oral: ET and OG tube Neck: Supple, No JVD, Negative Carotid Bruits Lungs: Air entry equal bilaterally. On AC mode ventilator. Cardiovascular: Sinus rhythm, multiple PVCs, normal S1, Normal S2, No murmurs Abdomen: Bowel Sounds sluggish, fecal management tube. Soft, Non Tender, Non- Distended status post liver transplant : On intermittent dialysis. No renal angle tenderness. No suprapubic tenderness. Extremities: Lower extremity subcutaneous edema resolved. Skin: No rashes, No breakdown Musculoskeletal: No Tenderness to Palpation of Joints or Extremities Neurological: Cranial nerves II-XII grossly intact, sometimes follows simple commands. Psych/Mental Status: Sedated. Assessment & Plan Assessment/Plan (1) Acute respiratory failure with hypoxia: (2) Influenza B: (3) COVID-19: (4) OPAL (acute kidney injury): (5) Hyperkalemia: PLAN: 1. Acute hypoxic respiratory failure due to bilateral COVID-19 pneumonia/influenza B and bacterial secondary infection with distributive shock most probably due to multifactorial sedating medications/infection inflammatory condition/immunocompromised host: 07/13: Patient having fever and on cooling blanket.. She was intubated on July 06. Before that patient was on AIRVO with worsening oxygenation and respiratory status which led to BiPAP and then intubated. Patient is on IV meropenem and vancomycin. Prior to that patient was on cefepime and vancomycin. Patient has leukocytosis. She completed treatment course of Tamiflu. 07/14: No significant improvement, 90% FiO2 AC mode, PEEP 14. Vent day 9. On fentanyl drip 07/15: Vent day #10. General Education Instructor talk to patient's daughters and they are trying to discuss among themselves and reach consensus about next course of action regarding continuation of aggressive management or withdrawal of care.If family want to continue aggressive management, will need preparation for tracheostomy and PEG tube 07/16: Discussed with holistic specialist. Family agreeable for tracheostomy and PEG tube if clinically indicated. Vent day, 11. Patient also has distributive shock and started on Levophed drip on 07/15. Patient on fentanyl and Precedex drip. 2. Autoimmune hepatitis status post liver transplant. Immunocompromised host. Serum tacrolimus level pending Continue tacrolimus, Bactrim and dexamethasone. Earlier on 07/03, mycophenolate was discontinued after nursing staff talked to the conference services coordinator in [facility]. Currently literature, mycophenolate not recommended during Covid infection because side effect of pancytopenia and lowering the immune status. 07/16: Tacrolimus level is 3.7. I think it is good level as we do not want higher level of immunosuppression. Continue present dose of tacrolimus. 3. OPAL on CKD stage 3b: Creatinine level fluctuates, it was 1.34 on 07/05, gradually worsening to current 4.09. The patient's daughter said her creatinine has always been fluctuating because of interaction with different immunosuppr ession medications. Dialysis started on 07/08/202107/14: Seen by electromagnet crane operator. Patient oliguric 55 mL last 24 hours. Dialysis today, up to 3 L fluid removal. Tacrolimus level is pending. Serum creatinine 3.38 07/15: Overall subcutaneous edema has improved after dialysis. Dialysis is scheduled as per electromagnet crane operator. 07/16: Patient had hemodialysis 1 L of fluid removed on 07/15. No plan for dialysis today. 4 hypothyroidism: Continue Synthroid 5. GERD, dyslipidemia and morbid obesity: VTE prophylaxis: Enoxaparin 30 mg SQ twice daily estimated creatinine clearance 39 mL/min.. Discontinue if platelet count drops less than 50,000 or hemoglobin less than 8 g% Total time of the visit including total time spent in counseling or coordination of care, (more than 50% of the total time, spent in obtaining medical information from nurses and other ancillary care providers,explaining to the patient about labs, imaging, diagnosis and management), discussion with consultants with complexity of immunosuppression and liver transplant, review of labs and imaging is 40 minutes. Active Medications Acetaminophen (Acetaminophen 650 Mg/20 Ml Udc) 650 mg GT Q8H PRN PRN PRN Reason: Pain 1-10 or Fever Last Admin: 07/16/21 14:38 Dose: 650 mg Documented by: Albuterol Sulfate (Albuterol Ih 8.5 Gm (Proair) Inhaler (200 Puffs)) 2 puff INHALATION Q6H PRN PRN PRN Reason: sob/wheezing Last Admin: 07/01/21 22:24 Dose: 2 puff Documented by: Aspirin (Aspirin 81 Mg Tab.Chew) 81 mg GT DAILY [facility] Last Admin: 07/16/21 10:23 Dose: 81 mg Documented by: Atorvastatin Calcium (Atorvastatin Calcium 10 Mg Tablet) 10 mg GT QHS [facility] Last Admin: 07/15/21 20:11 Dose: 10 mg Documented by: Benzonatate (Benzonatate 100 Mg Capsule) 100 mg PO Q4H PRN PRN PRN Reason: COUGH Last Admin: 06/29/21 09:46 Dose: 100 mg Documented by: Calamine/Phenol (Menthol/Lanolin/Calamine/Znox 113 Gm Tube) 1 applic TOPICAL BID [facility]; Protocol Last Admin: 07/16/21 10:26 Dose: 1 applic Documented by: Calcium Carbonate (Calcium (Elemental) 500 Mg Tablet) 500 mg GT BID [facility] Last Admin: 07/16/21 10:24 Dose: 500 mg Documented by: Chlorhexidine Gluconate (Chlorhexidine 15 Ml) 15 ml PO BID [facility] Last Admin: 07/16/21 10:24 Dose: 15 ml Documented by: Cholecalciferol (Cholecalciferol (Vit D3) 25 Mcg Tablet (1,000 Units)) 50 mcg GT DAILY [facility] Last Admin: 07/16/21 10:23 Dose: 50 mcg Documented by: Dexamethasone Sodium Phosphate (Dexamethasone 10 Mg/Ml Vial) 6 mg IV DAILY [facility] Last Admin: 07/16/21 10:24 Dose: 6 mg Documented by: Enoxaparin Sodium (Enoxaparin 30 Mg/0.3 Ml Syringe) 30 mg SC DAILY@0600 [facility] Last Admin: 07/16/21 05:35 Dose: 30 mg Documented by: Ferrous Gluconate (Ferrous Gluconate 324 Mg Tablet) 324 mg PO QODAY [facility] Last Admin: 07/16/21 10:23 Dose: 324 mg Documented by: Heparin Sodium (Porcine) (Heparin 10,000 Units/10 Ml Vial) 0 - 10,000 units IV PRN PRN PRN Reason: TO CLOSE DIALYSIS CATHETER Hydralazine HCl (Hydralazine 20 Mg/Ml Vial) 10 mg IV Q4H PRN PRN PRN Reason: SBP > 160 OR DBP > 120 Sodium Chloride () 250 mls @ 15 mls/hr IV .[id number] PRN PRN Reason: Saline Flush Last Infusion: 07/14/21 12:16 Dose: Infused Documented by: Sodium Chloride () 250 mls @ 15 mls/hr IV .[id number] PRN PRN Reason: Additional IVPB Infusion Fentanyl Citrate 1,000 mcg/ (Sodium Chloride) 100 mls @ 5 mls/hr CONT INF .Q20H [facility]; Protocol Last Admin: 07/16/21 14:24 Dose: 200 mcg/hr, 20 mls/hr Documented by: Enteral Nutritional Formula (Vital Af 1.2 Juanito Liquid) 1,000 mls @ 60 mls/hr GT .[id number] [facility] Last Admin: 07/16/21 08:20 Dose: Not Given Documented by: Pantoprazole Sodium 40 mg/ (Sodium Chloride) 110 mls @ 330 mls/hr IV Q24 [facility] Last Infusion: 07/16/21 11:05 Dose: Infused Documented by: Meropenem 500 mg/ Sodium (Chloride) 60 mls @ 100 mls/hr IV Q12 [facility] Last Infusion: 07/16/21 11:48 Dose: Infused Documented by: Vancomycin IV-PHARMACY TO DOSE (1 each/ Sodium Chloride) 500 mls @ 250 mls/hr IV X1 PRN; Protocol PRN Reason: Rx to Dose Norepinephrine Bitartrate 8 mg (/ Sodium Chloride) 250 mls @ 9.375 mls/hr CONT INF .[id number] [facility]; Protocol Last Admin: 07/16/21 14:26 Dose: 10 mcg/min, 18.8 mls/hr Documented by: Dexmedetomidine HCl 1,000 mcg/ (Sodium Chloride) 250 mls @ 12.588 mls/hr CONT INF .[id number] [facility]; Protocol Last Admin: 07/16/21 14:25 Dose: 0.8 mcg/kg/hr, 20.1 mls/hr Documented by: Labetalol HCl (Labetalol (Prefilled) 20 Mg/4 Ml) 10 mg IV Q4H PRN PRN PRN Reason: SBP GREATER THAN 170 Lactulose (Lactulose 20 Gm/30 Ml Udc) 20 gm GT DAILY [facility] Last Admin: 07/16/21 10:22 Dose: 20 gm Documented by: Levothyroxine Sodium (Levothyroxine 88 Mcg Tablet) 88 mcg GT DAILY [facility] Last Admin: 07/16/21 10:23 Dose: 88 mcg Documented by: Lorazepam (Lorazepam 2 Mg/Ml Syringe) 0.5 mg IV Q4H PRN PRN PRN Reason: severe anxiety with BIPAP Last Admin: 07/06/21 08:08 Dose: 0.5 mg Documented by: Miscellaneous Information (Inhaler, Assist Devices 1 Each Spacer) 1 each INHALATION PRN PRN PRN Reason: WITH ALBUTEROL INHALER Ondansetron HCl (Ondansetron 4 Mg/2 Ml Vial) 4 mg IV Q6H PRN PRN PRN Reason: NAUSEA/VOMITING Last Admin: 07/06/21 08:35 Dose: 4 mg Documented by: Polyethylene Glycol (Polyethylene Glycol 3350 17 Gm Packet) 17 gm GT DAILY [facility] Last Admin: 07/16/21 10:22 Dose: 17 gm Documented by: Quetiapine Fumarate (Quetiapine 25 Mg Tablet) 50 mg PO BID [facility] Last Admin: 07/16/21 14:25 Dose: 50 mg Documented by: Rifaximin (Rifaximin 550 Mg Tablet) 550 mg GT BID [facility] Last Admin: 07/16/21 10:23 Dose: 550 mg Documented by: Senna/Docusate Sodium (Senna/Docusate Sodium 1 Tablet) 1 tablet GT BID [facility] Last Admin: 07/16/21 10:22 Dose: 1 tablet Documented by: Sodium Chloride (0.9% Saline Lock 10 Ml Syringe) 10 - 40 ml IV UD PRN PRN Reason: SALINE FLUSH Last Admin: 07/15/21 04:52 Dose: 30 ml Documented by: Tacrolimus (Tacrolimus 0.5 Mg Capsule) 0.5 mg GT Q12 [facility] Last Admin: 07/16/21 10:25 Dose: 0.5 mg Documented by: Tacrolimus (Tacrolimus Anhydrous 1 Mg Capsule) 2 mg GT Q12 [facility] Last Admin: 07/16/21 10:25 Dose: 2 mg Documented by: Trimethoprim/Sulfamethoxazole (Smz/Tmp Ds Tablet) 1 tablet GT MoWeFr@1000 [facility] Last Admin: 07/15/21 08:54 Dose: 1 tablet Documented by: Ursodiol (Ursodiol 250 Mg Tablet) 250 mg GT BID [facility] Last Admin: 07/16/21 10:23 Dose: 250 mg Documented by: Charges/Coding Visit Charges Inpatient E&M: 58652 Subs Hosp L3
[2021-07-16] MEDS: Vital AF 1.2 Cal Liquid 1,000 ML 60 ML GT (08:18)
--- NOTE | 2021-07-16 10:09 | PCM.PN.ID ---
Physical Exam Narrative On vent, precedex Const no apparent distress Resp Effort and Inspection: mechanically ventilated Auscultation: diminished lung sounds Cardio regular rate and regular rhythm GI soft to palpation, non-tender and non-distended Skin no rashes or lesions noted ID ID: Route of nutrition/ use of supplements: [] Nutritional Intake: [] IV Site: [] Richardson Catheter: [] Assessment & Plan Assessment/Plan (1) CKD (chronic kidney disease) stage 3, GFR 30-59 ml/min: (2) Liver transplant recipient: (3) Hypoxia: (4) COVID-19: PLAN: Sick for approximately 3 weeks prior to admit. Covid vaccine x3. Also flu B Ag (+). On cellcept, tacro, pred, bactrim at home with h/o liver transplant. Not candidate for baricitinib due to liver transplant. On dex here and completed empiric course of cefepime. Ucx with ecoli, 80-100k. Completed 5 days of tamiflu for flu coverage. Remains intubated. Worsening OPAL, now on HD. New fevers, started on empiric vanc/eli 2/6. O2 slowly improving. Sputum with some CoNS. Will follow (5) Influenza B:
[2021-07-16] MEDS: Polyethylene Glycol 3350 17 GM PACKET GT (10:22)
[2021-07-16] MEDS: Senna/Docusate Sodium 1 Tablet GT ×2 (10:22→20:51)
[2021-07-16] MEDS: Lactulose 20 GM/30 ML UDC GT (10:22)
[2021-07-16] MEDS: Cholecalciferol (VIT D3) 25 MCG TABLET (1,000 UNITS) 50 MCG GT (10:23)
[2021-07-16] MEDS: rifAXIMin 550 MG Tablet GT ×2 (10:23→20:52)
[2021-07-16] MEDS: Levothyroxine 88 MCG Tablet GT (10:23)
[2021-07-16] MEDS: Ferrous Gluconate 324 MG Tablet PO (10:23)
[2021-07-16] MEDS: Aspirin 81 MG TAB.CHEW GT (10:23)
[2021-07-16] MEDS: Ursodiol 250 MG Tablet GT ×2 (10:23→20:52)
[2021-07-16] MEDS: Calcium (Elemental) 500 MG Tablet GT ×2 (10:24→20:51)
[2021-07-16] MEDS: dexAMETHasone 10 MG/ML Vial 6 MG IV (10:24)
[2021-07-16] MEDS: Chlorhexidine 15 ML PO ×2 (10:24→20:50)
[2021-07-16] MEDS: Tacrolimus 0.5 MG Capsule GT ×2 (10:25→20:52)
[2021-07-16] MEDS: Tacrolimus Anhydrous 1 MG Capsule 2 MG GT ×2 (10:25→20:51)
[2021-07-16] MEDS: Menthol/Lanolin/Calamine/Znox 113 GM Tube 1 APPLIC TOPICAL ×2 (10:26→20:50)
--- NOTE | 2021-07-16 12:56 | PN.RENAL_ITS ---
Subjective Subjective remains intubated Objective Data Objective Data Vital Signs: Vital Signs Temp Pulse Resp BP Pulse Ox 101.2 F H 92 33 H 123/63 H 90 07/16/21 12:00 07/16/21 12:00 07/16/21 12:00 07/16/21 12:00 07/16/21 12:00 Oxygen Flow Rate (L/min) [ 3 AMBULATING with Oxygen #1] Oxygen Flow Rate (L/min) 100 Oxygen Delivery Method Mechanical Ventilator Weight: 101.8 kg Body Mass Index (BMI) 40.8 Intake & Output: Intake and Output for Last 24 Hours 07/14/21 07/15/21 07/16/21 23:59 23:59 23:59 Intake Total 1661.92 / 1681.92 2048.24 / 2188.34 1707.33 / 1707.33 Output Total 3565 / 3600 1165 / 1215 140 / 140 Balance -1903.08 / -1918.08 883.24 / 973.34 1567.33 / 1567.33 Lab / Micro Data Result Diagrams: 07/16/21 04:05 07/16/21 04:05 Labs: Laboratory Results - last 24 hr 07/10/21 03:45: Tacrolimus 3.7 07/16/21 04:05: WBC 15.7 H, RBC 3.33 L, Hgb 9.6 L, Hct 28.8 L, MCV 86.5, MCH 28.8, MCHC 33.3, RDW Std Deviation 43.5, RDW Coeff of Tyrell 14.3, Plt Count 213, MPV 9.4, Immature Gran % (Auto) 3.200 H, Neut % (Auto) 85.2 H, Lymph % (Auto) 3.9 L, [place]ney % (Auto) 7.3, Eos % (Auto) 0.3, Baso % (Auto) 0.1, Absolute Neuts (auto) 13.4 H, Absolute Lymphs (auto) 0.62 L, Nucleated RBC % 0.6 07/16/21 04:05: Sodium 131 L, Potassium 3.7, Chloride 94 L, Carbon Dioxide 27.0, Anion Gap 10, BUN 53 H, Creatinine 3.17 H, Estim Creat Clear Calc 15.03, Est GFR (MDRD) Af Amer 19 L, Est GFR (MDRD) Non-Af 16 L, BUN/Creatinine Ratio 16.7, Glucose 136 H, Calcium 8.0 L Micro: Microbiology 07/11/21 15:00 Urine Catheter - Richardson Urine Culture - Final Yeast, not Rosio albicans 07/11/21 15:25 Sputum, Induced/Lukens Gram Stain - Final 07/11/21 15:25 Sputum, Induced/Lukens Respiratory Culture - Final Coag Negative Staph 07/06/21 11:20 Sputum, Induced/Lukens Gram Stain - Final 07/06/21 11:20 Sputum, Induced/Lukens Respiratory Culture - Final Culture exhibits no growth. 06/28/21 12:01 Blood Culture (Wb) - Right Hand Blood Culture - Final No growth in 5 days. 06/28/21 11:52 Blood Culture (Wb) - Left Hand Blood Culture - Final No growth in 5 days. 06/26/21 20:35 Urine, Clean Catch Streptococcus pneumoniae Antigen (M - Final 06/26/21 20:35 Urine, Clean Catch Legionella Antigen - Final 06/28/21 16:50 Mucosa - Nasopharyngeal Influenza Types A,B Direct FA (ROSEMARIE) - Final Influenzae B 06/26/21 20:35 Urine, Clean Catch Urine Culture - Final Escherichia coli Physical Exam Narrative Intubated sedated pallor+ s1s2 bilateral air entry soft no edema no cyanosis Assessment & Plan Assessment/Plan (1) OPAL (acute kidney injury): PLAN: -OPAL is likely due to ischemic ATN related to sepsis. The patient remains oliguric -Dialysis was initiated on 07/08/2021. essentially daily dialysis -last HD 07/15/21 possible trach she is on pressors today, levophed 15 mcg doubt she will give more fluid off will plan for HD MWF schedule going forward dw Dr Akins (2) Chronic kidney disease, stage 3a: PLAN: -Baseline serum creatinine is 1.4 mg/dL. (3) Immunosuppressed status: PLAN: -The patient is status post orthotopic liver transplantation. -On tacrolimus, CellCept, prednisone. CellCept is on hold as per transplant team recommendation due to COVID-19 infection. -The patient is also being followed by GI. (4) Acute respiratory failure with hypoxia: PLAN: -The patient is ventilator dependent. -She is being treated for COVID-19 pneumonia along with influenza B pneumonia.
[2021-07-16] MEDS: QUEtiapine 25 MG Tablet 50 MG PO ×2 (14:25→23:20)
[2021-07-16] MEDS: Dexmedetomidine 1,000 mcg in 0.9% NS 240 mL 20.1 MCG CONT INF (14:25)
[2021-07-16] MEDS: Atorvastatin Calcium 10 MG Tablet GT (20:50)
[2021-07-17] VITALS (40 sets, daily range): BP systolic 85–176; BP diastolic 49–76; PULSE 65–106; RESP 18–32; TEMP 37.1–39.2; O2SAT 86–97
[2021-07-17] MEDS: Acetaminophen 650 MG/20 ML UDC GT ×2 (01:45→15:37)
[2021-07-17] MEDS: Vital AF 1.2 Cal Liquid 1,000 ML 60 ML GT ×2 (01:46→20:15)
[2021-07-17 03:29] LABS: Absolute Lymphocyte Count 0.62 X10^3/uL (0.83-4.51); Absolute Neutrophil Count 10.3 X10^3/uL (2.0-7.7); Basophil# 0.01 X10^3/uL; Basophil% 0.1 % (0-1); Lymphocyte # 0.62 X10^3/ul (0.83-4.51); Lymphocyte % 5.1 % (19-41); Mean Corpuscular Hgb 28.3 pg (27.0-32.0); Mean Corpuscular Volume 88.3 fL (81-99); Monocyte# 0.82 X10^3/uL; Monocyte% 6.7 % (0-10); NRBC Flagged by Analyzer 0.6 % (0-5); Neutrophil # 10.26 X10^3/uL (2.7-7.7); Neutrophil % 83.6 % (47-70); Platelet Count 180 K/mm3 (150-450); RBC Distribution Width CV 14.8 % (11.6-14.6); RBC Distribution Width SD 46.5 fl (35.1-43.9); Red Blood Count 2.83 M/mm3 (4.2-5.4); White Blood Count 12.3 K/mm3 (4.4-11.0)
[2021-07-17 04:18] LABS: Anion Gap 10 (5-15); BUN 89 mg/dL (7-18); BUN/Creat Ratio 19.6 RATIO (10-20); Calcium,Total 7.7 mg/dL (8.5-10.1); Chloride 95 mmol/L (98-107); Creatinine, Serum 4.54 mg/dL (0.55-1.02); EST Glomerular Filtration Rate 10 mL/min (>60); Est Glom Filt Rate - Afr Amer 13 mL/min (>60); Estimated Creatinine Clearance 10.49 ml/min; Glucose 177 mg/dL (74-106); Potassium 4.2 mmol/L (3.5-5.1); Sodium Level 128 mmol/L (136-145)
[2021-07-17] MEDS: Enoxaparin 30 MG/0.3 ML Syringe SC (05:25)
[2021-07-17 06:55] LABS: Vancomycin, Random Level 17.1 ug/mL (0.0-15.0)
--- NOTE | 2021-07-17 07:15 | PN.HOSP_ITS ---
Subjective Subjective Seen and examined. Follow-up for shock and acute hypoxic respiratory failure. Patient is on Levophed drip. Remains intubated. Clear undergoing hemodialysis as per tolerated. Objective Data Objective Data Vital Signs: Vital Signs Temp Pulse Resp BP Pulse Ox 98.9 F 74 24 H 113/57 L 92 07/17/21 06:00 07/17/21 06:00 07/17/21 06:00 07/17/21 06:00 07/17/21 06:00 Oxygen Flow Rate (L/min) [ 3 AMBULATING with Oxygen #1] Oxygen Flow Rate (L/min) 100 Oxygen Delivery Method Mechanical Ventilator Weight: 230 lb 13.184 oz Body Mass Index (BMI) 40.8 Intake & Output: Intake and Output for Last 24 Hours 07/15/21 07/16/21 07/17/21 23:59 23:59 23:59 Intake Total 2048.24 / 2188.34 3545.82 / 3668.97 1212.14 / 1212.14 Output Total 1165 / 1215 235 / 235 30 / 30 Balance 883.24 / 973.34 3310.82 / 3433.97 1182.14 / 1182.14 Lab / Micro Data Result Diagrams: 07/17/21 03:17 07/17/21 03:17 Labs: Laboratory Results - last 24 hr 07/17/21 03:17: WBC 12.3 H, RBC 2.83 L, Hgb 8.0 L, Hct 25.0 L, MCV 88.3, MCH 28.3, MCHC 32.0, RDW Std Deviation 46.5 H, RDW Coeff of Tyrell 14.8 H, Plt Count 180, MPV 9.0, Immature Gran % (Auto) 4.500 H, Neut % (Auto) 83.6 H, Lymph % (Auto) 5.1 L, [place] % (Auto) 6.7, Eos % (Auto) 0.0, Baso % (Auto) 0.1, Absolute Neuts (auto) 10.3 H, Absolute Lymphs (auto) 0.62 L, Nucleated RBC % 0.6 07/17/21 03:17: Sodium 128 L, Potassium 4.2, Chloride 95 L, Carbon Dioxide 23.0, Anion Gap 10, BUN 89 H, Creatinine 4.54 H, Estim Creat Clear Calc 10.49, Est GFR (MDRD) Af Amer 13 L, Est GFR (MDRD) Non-Af 10 L, BUN/Creatinine Ratio 19.6, Glucose 177 H, Calcium 7.7 L 07/17/21 06:22: Random Vancomycin 17.1 H Micro: Microbiology 07/11/21 15:00 Blood Culture (Wb) - Right Wrist Blood Culture - Final No growth in 5 days. 07/11/21 15:15 Blood Culture (Wb) - Right Hand Blood Culture - Final No growth in 5 days. 07/11/21 15:00 Urine Catheter - Richardson Urine Culture - Final Yeast, not Rosio albicans 07/11/21 15:25 Sputum, Induced/Lukens Gram Stain - Final 07/11/21 15:25 Sputum, Induced/Lukens Respiratory Culture - Final Coag Negative Staph 07/06/21 11:20 Sputum, Induced/Lukens Gram Stain - Final 07/06/21 11:20 Sputum, Induced/Lukens Respiratory Culture - Final Culture exhibits no growth. 06/28/21 12:01 Blood Culture (Wb) - Right Hand Blood Culture - Final No growth in 5 days. 06/28/21 11:52 Blood Culture (Wb) - Left Hand Blood Culture - Final No growth in 5 days. 06/26/21 20:35 Urine, Clean Catch Streptococcus pneumoniae Antigen (M - Final 06/26/21 20:35 Urine, Clean Catch Legionella Antigen - Final 06/28/21 16:50 Mucosa - Nasopharyngeal Influenza Types A,B Direct FA (ROSEMARIE) - Final Influenzae B 06/26/21 20:35 Urine, Clean Catch Urine Culture - Final Escherichia coli Physical Exam Narrative General: Minimally responsive, sedated on ventilator. BMI 39.7 kg/m? HEENT: Opens eyes sluggish, atraumatic, Normocephalic Oral: ET and OG tube Neck: Supple, No JVD, Negative Carotid Bruits Lungs: Air entry equal bilaterally. On AC mode ventilator. Cardiovascular: Sinus rhythm, multiple PVCs, normal S1, Normal S2, No murmurs Abdomen: Bowel Sounds sluggish, fecal management tube. Soft, Non Tender, Non- Distended : On intermittent dialysis. No renal angle tenderness. No suprapubic tenderness. Extremities: Lower extremity subcutaneous edema resolved. Skin: Skin is dry. No rashes, No breakdown Musculoskeletal: No Tenderness to Palpation of Joints or Extremities Neurological: Cranial nerves II-XII grossly intact, sometimes follows simple commands. Psych/Mental Status: Sedated. Assessment & Plan Assessment/Plan (1) Acute respiratory failure with hypoxia: (2) Influenza B: (3) COVID-19: (4) OPAL (acute kidney injury): (5) Hyperkalemia: PLAN: 1. Acute hypoxic respiratory failure due to bilateral COVID-19 pneumonia/influenza B and bacterial secondary infection with distributive shock most probably due to multifactorial sedating medications/infection inflammatory condition/immunocompromised host: 07/13: Patient having fever and on cooling blanket.. She was intubated on July 06. Before that patient was on AIRVO with worsening oxygenation and respiratory status which led to BiPAP and then intubated. Patient is on IV meropenem and vancomycin. Prior to that patient was on cefepime and vancomycin. Patient has leukocytosis. She completed treatment course of Tamiflu. 07/14: No significant improvement, 90% FiO2 AC mode, PEEP 14. Vent day 9. On fentanyl drip 07/15: Vent day #10. Cycle Touring Guide talk to patient's daughters and they are trying to discuss among themselves and reach consensus about next course of action regarding continuation of aggressive management or withdrawal of care.If family want to continue aggressive management, will need preparation for tracheostomy and PEG tube 07/16: Discussed with alarm mechanic. Family agreeable for tracheostomy and PEG tube if clinically indicated. Vent day, 11. Patient also has distributive shock and started on Levophed drip on 07/15. Patient on fentanyl and Precedex drip. 07/17: On Levophed drip. FiO2 65%, PEEP 14. Vent day 12. No significant improvement. Patient remains on antibiotic vancomycin and meropenem. 2. Autoimmune hepatitis status post liver transplant. Immunocompromised host. Serum tacrolimus level pending Continue tacrolimus, Bactrim and dexamethasone. Earlier on 07/03, mycophenolate was discontinued after nursing staff talked to the television schedule coordinator in [facility]. Currently literature, mycophenolate not recommended during Covid infection because side effect of pancytopenia and lowering the immune status. 07/16: Tacrolimus level is 3.7. I think it is good level as we do not want higher level of immunosuppression. Continue present dose of tacrolimus. 3. OPAL on CKD stage 3b: Creatinine level fluctuates, it was 1.34 on 07/05, gradually worsening to current 4.09. The patient's daughter said her creatinine has always been fluctuating because of interaction with different immunosuppression medications. Dialysis started on 07/08/202107/14: Seen by tea tree farmer. Patient oliguric 55 mL last 24 hours. Dialysis today, up to 3 L fluid removal. Tacrolimus level is pending. Serum creatinine 3.38 07/15: Overall subcutaneous edema has improved after dialysis. Dialysis is scheduled as per tea tree farmer. 07/16: Patient had hemodialysis 1 L of fluid removed on 07/15. No plan for dialysis today. 07/17: Patient undergoing hemodialysis today. Positive fluid balance about ~1 L. 4 hypothyroidism: Continue Synthroid 5. GERD, dyslipidemia and morbid obesity: VTE prophylaxis: Enoxaparin 30 mg SQ twice daily estimated creatinine clearance 39 mL/min.. Discontinue if platelet count drops less than 50,000 or hemoglobin less than 8 g% Total time of the visit including total time spent in counseling or coordination of care, (more than 50% of the total time, spent in obtaining medical information from nurses and other ancillary care providers,explaining to the patient about labs, imaging, diagnosis and management), discussion with consultants with complexity of immunosuppression and liver transplant, review of labs and imaging is 40 minutes. Charges/Coding Visit Charges Inpatient E&M: 07061 Subs Hosp L3
--- NOTE | 2021-07-17 09:26 | PCM.PN.INT ---
Subjective Subjective The patient was seen and examined at the bedside this morning. Events from the last 24 hours have been reviewed. Today is day #12. The patient is currently afebrile, but is requiring Levophed at 20 mcg/min to maintain hemodynamic stability. She remains on assist control mode mechanical ventilation with an FiO2 requirement of 65% and PEEP of 14. She is currently sedated on a combination of Seroquel, fentanyl and Precedex. She has been tolerant of tube feeds. There are tentative plans for dialysis today. The patient is currently documented to be overall net +11.2 L for the hospitalization. She remains on antimicrobials. Objective Data Objective Data The patient's most recent lab work, culture data and imaging studies have all been personally reviewed. Coronavirus PCR was positive on June 26. Influenza screen was positive for flu B. Vital Signs: Vital Signs Temp Pulse Resp BP Pulse Ox 98.8 F 76 21 H 107/64 92 07/17/21 08:00 07/17/21 09:00 07/17/21 09:00 07/17/21 09:00 07/17/21 09:00 Oxygen Flow Rate (L/min) [ 3 AMBULATING with Oxygen #1] Oxygen Flow Rate (L/min) 100 Oxygen Delivery Method Mechanical Ventilator Weight: 104.7 kg Body Mass Index (BMI) 40.8 Intake & Output: Intake and Output for Last 24 Hours 07/15/21 07/16/21 07/17/21 23:59 23:59 23:59 Intake Total 2048.24 / 2188.34 3545.82 / 3668.97 1729.96 / 1729.96 Output Total 1165 / 1215 235 / 235 30 / 30 Balance 883.24 / 973.34 3310.82 / 3433.97 1699.96 / 1699.96 Lab / Micro Data Attestation: I reviewed the patient's lab results. Result Diagrams: 07/17/21 03:17 07/17/21 03:17 Labs: Laboratory Results - last 24 hr 07/17/21 03:17: WBC 12.3 H, RBC 2.83 L, Hgb 8.0 L, Hct 25.0 L, MCV 88.3, MCH 28.3, MCHC 32.0, RDW Std Deviation 46.5 H, RDW Coeff of Tyrell 14.8 H, Plt Count 180, MPV 9.0, Immature Gran % (Auto) 4.500 H, Neut % (Auto) 83.6 H, Lymph % (Auto) 5.1 L, [place] % (Auto) 6.7, Eos % (Auto) 0.0, Baso % (Auto) 0.1, Absolute Neuts (auto) 10.3 H, Absolute Lymphs (auto) 0.62 L, Nucleated RBC % 0.6 07/17/21 03:17: Sodium 128 L, Potassium 4.2, Chloride 95 L, Carbon Dioxide 23.0, Anion Gap 10, BUN 89 H, Creatinine 4.54 H, Estim Creat Clear Calc 10.49, Est GFR (MDRD) Af Amer 13 L, Est GFR (MDRD) Non-Af 10 L, BUN/Creatinine Ratio 19.6, Glucose 177 H, Calcium 7.7 L 07/17/21 06:22: Random Vancomycin 17.1 H Micro: Microbiology 07/11/21 15:00 Blood Culture (Wb) - Right Wrist Blood Culture - Final No growth in 5 days. 07/11/21 15:15 Blood Culture (Wb) - Right Hand Blood Culture - Final No growth in 5 days. 07/11/21 15:00 Urine Catheter - Richardson Urine Culture - Final Yeast, not Rosio albicans 07/11/21 15:25 Sputum, Induced/Lukens Gram Stain - Final 07/11/21 15:25 Sputum, Induced/Lukens Respiratory Culture - Final Coag Negative Staph 07/06/21 11:20 Sputum, Induced/Lukens Gram Stain - Final 07/06/21 11:20 Sputum, Induced/Lukens Respiratory Culture - Final Culture exhibits no growth. 06/28/21 12:01 Blood Culture (Wb) - Right Hand Blood Culture - Final No growth in 5 days. 06/28/21 11:52 Blood Culture (Wb) - Left Hand Blood Culture - Final No growth in 5 days. 06/26/21 20:35 Urine, Clean Catch Streptococcus pneumoniae Antigen (M - Final 06/26/21 20:35 Urine, Clean Catch Legionella Antigen - Final 06/28/21 16:50 Mucosa - Nasopharyngeal Influenza Types A,B Direct FA (ROSEMARIE) - Final Influenzae B 06/26/21 20:35 Urine, Clean Catch Urine Culture - Final Escherichia coli Physical Exam Const Constitutional Narrative: Intubated, sedated and mechanically ventilated. No ventilator dyssynchrony. Nutritional Appearance: morbidly obese HEENT normocephalic and head/scalp atraumatic Mouth: endotracheal tube in place and OG tube in place Eyes PERRL and EOMs intact bilaterally Neck supple General: trachea midline and CVC in place Chest inspection of chest normal Resp Effort and Inspection: tachypneic Auscultation: diminished lung sounds; Negative for rales, rhonchi or wheezes Cardio regular rate, regular rhythm, S1 normal heart sound and S2 normal heart sound Heart Sounds: murmur GI normal to inspection, nondistended, normoactive bowel sounds Extremity no clubbing, cyanosis or edema Skin no rashes or lesions noted Neuro Sensorium / Orientation: sedated on vent Charges/Coding Procedures Hospitalists Procedures: [id number] Assessment & Plan Assessment & Plan (1) Acute respiratory failure with hypoxia: (2) Influenza B: (3) COVID-19: (4) OPAL (acute kidney injury): (5) Hyperkalemia: Plan: RECOMMENDATIONS: 1. Continue mechanical ventilation and wean FiO2 for saturations greater than 90%. 2. Continue empiric antimicrobials. 3. Ongoing hemodialysis with volume removal, per nephrology recommendations. 4. Continue appropriate ICU prophylaxis. 5. Continue tube feeds as tolerated. 6. Continue vasopressor support to maintain a mean arterial pressure at or above 65 mmHg. 7. Increase Seroquel dose today. IMPRESSIONS: 1. Acute hypoxemic respiratory failure secondary to COVID-19/influenza B The patient was initially admitted to the hospital on June 27 and subsequently tested positive for both COVID-19 and influenza. The patient is vaccinated at her baseline. However, she is immunosuppressed due to a history of a liver transplant. The patient's oxygenation status progressively worsened over the course of her hospitalization, ultimately culminating in intubation on July 06. She has completed a treatment course of Tamiflu. She has been continued on Decadron and prophylactic Lovenox. In light of recent fevers, the patient was also started on empiric antimicrobials. Continue to wean FiO2 to maintain saturations at or above 90%. Ongoing volume optimization through hemodialysis per nephrology recommendations. The patient's family is agreeable to tracheostomy, if clinically indicated. 2. Distributive shock Likely multifactorial with underlying infection and hemodynamic effects of sedative medication use contributing. Continue vasopressor support as ordered to maintain a mean arterial pressure at or above 65 mmHg. 3. Acute kidney injury Likely secondary to ischemic ATN in the setting of #1. Nephrology is currently following to assist with hemodialysis needs and volume removal. 4. Chronic baseline immunosuppressed state secondary to liver transplantation Continue baseline outpatient immunosuppressive regimen, with the exception of CellCept. Liver function profile remains within normal limits. Tacrolimus levels were within normal limits. Continuing Decadron to help with immunosuppression past the normal 10 days for COVID-19. 5. Morbid obesity/asthma/hypothyroidism/hyperlipidemia/GERD Complicates care, management, recovery and prognosis. Continue home medications as indicated. Poor overall prognosis. TIME: 32 minutes of critical care time, independent of procedures, was spent addressing the patient's acute hypoxemic respiratory failure secondary to COVID-19/influenza B, distributive shock, acute kidney injury, review of all data and collaboration with the care team. Plan Detail Other Medications: New: nitrofurantoin monohyd/m-cryst 100 mg 100 mg PO Q12 14 CAPSULES 0RF
[2021-07-17] MEDS: Dexmedetomidine 1,000 mcg in 0.9% NS 240 mL 20.1 MCG CONT INF ×2 (09:29→20:50)
--- NOTE | 2021-07-17 09:30 | PHA.PHARE_ITS ---
Consult Pharmacy has been consulted to manage selected antiobiotic: Vancomycin Type of Consult: Follow-up Suspected Infection: Pneumonia Prior Doses of Antibiotics Received/Current Regimen: Received 500mg iv x 1 post dialysis on 07.15.21. Labs: Sodium 128 mmol/L (136-145) L 07/17/21 03:17 Potassium 4.2 mmol/L (3.5-5.1) 07/17/21 03:17 Chloride 95 mmol/L (98-107) L 07/17/21 03:17 Carbon Dioxide 23.0 mmol/L (21.0-32.0) 07/17/21 03:17 Anion Gap 10 (5-15) 07/17/21 03:17 BUN 89 mg/dL (7-18) H 07/17/21 03:17 Creatinine 4.54 mg/dL (0.55-1.02) H 07/17/21 03:17 Est GFR (MDRD) Af Amer 13 mL/min (>60) L 07/17/21 03:17 Est GFR (MDRD) Non-Af 10 mL/min (>60) L 07/17/21 03:17 BUN/Creatinine Ratio 19.6 RATIO (10-20) 07/17/21 03:17 Glucose 177 mg/dL (74-106) H 07/17/21 03:17 Vancomycin Trough 14.0 ug/mL (5.0-15.0) 07/07/21 11:30 Random Vancomycin 17.1 ug/mL (0.0-15.0) H 07/17/21 06:22 Microbiology: Microbiology 07/11/21 15:00 Blood Culture (Wb) - Right Wrist Blood Culture - Final No growth in 5 days. 07/11/21 15:15 Blood Culture (Wb) - Right Hand Blood Culture - Final No growth in 5 days. 07/11/21 15:00 Urine Catheter - Richardson Urine Culture - Final Yeast, not Rosio albicans 07/11/21 15:25 Sputum, Induced/Lukens Gram Stain - Final 07/11/21 15:25 Sputum, Induced/Lukens Respiratory Culture - Final Coag Negative Staph 07/06/21 11:20 Sputum, Induced/Lukens Gram Stain - Final 07/06/21 11:20 Sputum, Induced/Lukens Respiratory Culture - Final Culture exhibits no growth. 06/28/21 12:01 Blood Culture (Wb) - Right Hand Blood Culture - Final No growth in 5 days. 06/28/21 11:52 Blood Culture (Wb) - Left Hand Blood Culture - Final No growth in 5 days. 06/26/21 20:35 Urine, Clean Catch Streptococcus pneumoniae Antigen (M - Final 06/26/21 20:35 Urine, Clean Catch Legionella Antigen - Final 06/28/21 16:50 Mucosa - Nasopharyngeal Influenza Types A,B Direct FA (ROSEMARIE) - Final Influenzae B 06/26/21 20:35 Urine, Clean Catch Urine Culture - Final Escherichia coli Weight used for dosin.7 kg Estimated Creatinine Clearance: 11ml/min Goal Trough: 15-20 mcg/mL Pharmacy Plan for Drug Dosing: Random level this AM was 17.1. Receiving dialysis today. Will give 500mg IV x 1 post dialysis per protocol. Random level ordered for 07.18.21 pre dialysis as telegraph service rater note says dialysis M-W-F. Pharmacy Service will continue to monitor and adjust dosing as required. Follow-Up Labs: Trough Vancomycin - Random level 07.18.21@0600
--- NOTE | 2021-07-17 12:10 | PCM.CONS.GEN ---
HPI Consult Data Date of Consult: 07/17/21 HPI Narrative HPI Narrative: CHELI FITCH, is a 61 F who presents with covid/flu respiratory failure. immunosuppressed s/p liver transplant. on day #12 of intubation; currently undergoing dialysis. ICU team is requesting a tracheostomy. FOR[facility] Medical History (Updated 07/07/21 @ 13:[address] Joanna Whitlock, DO) Former smoker Hypothyroidism Kidney disease Migraines Osteoporosis Home Medications albuterol sulfate [Ventolin HFA] 2 puff INHALATION Q6H PRN PRN 06/21/16 [History Last Taken Unknown] azathioprine 50 mg PO DAILY@0800 06/21/16 [History Last Taken 10/03/17] calcium-vitamin D3-vitamin K [Citracal-D3 Soft Chew] 1 ea PO DAILY 06/21/16 [History Last Taken 10/03/17] cyanocobalamin (vitamin B-12) [Vitamin B-12] 50,000 mcg PO MOORE 06/21/16 [History Last Taken 10/02/17] ondansetron 8 mg PO Q8H PRN PRN 06/21/16 [History Last Taken 07/12/17] pantoprazole 40 mg PO DAILY 06/21/16 [History Last Taken 10/03/17] zinc 50 mg PO DAILY 06/21/16 [History Last Taken 10/03/17] melatonin 3 mg PO QHS 09/04/16 [History Last Taken 10/02/17] furosemide 20 mg PO QODAY 11/02/16 [History Last Taken 10/02/17] tramadol 50 mg PO BID PRN PRN 02/14/17 [History Last Taken 10/03/17] ascorbic acid (vitamin C) [Vitamin C] 500 mg PO BIDCM 07/12/17 [History Last Taken 07/11/17] ferrous gluconate 325 mg PO BIDCM 07/12/17 [History Last Taken 10/03/17] Xifaxan 550 mg PO BID 10/04/17 [History Last Taken 10/03/17] calcium carbonate 500 mg PO BID 10/04/17 [History Last Taken Unknown] cholecalciferol (vitamin D3) [Vitamin D3] 2,000 unit PO DAILY 10/04/17 [History Last Taken 10/03/17] lactulose 60 ml PO BID #0 10/07/17 [Rx Last Taken 10/02/17] aspirin 81 mg PO DAILY 08/19/19 [History Last Taken Unknown] mycophenolate mofetil 250 mg PO BID 08/19/19 [History Last Taken Unknown] ondansetron 4 mg PO Q8H PRN PRN #7 tab 08/19/19 [Rx Last Taken Unknown] prednisone 5 mg PO DAILY 08/19/19 [History Last Taken Unknown] simvastatin 20 mg PO QHS 08/19/19 [History Last Taken Unknown] sulfamethoxazole-trimethoprim 1 ea PO MOWEFR 08/19/19 [History Last Taken Unknown] tacrolimus 0.5 mg PO Q12H 08/19/19 [History Last Taken Unknown] tacrolimus 2 mg PO Q12H 08/19/19 [History Last Taken Unknown] ursodiol 250 mg PO BID 08/19/19 [History Last Taken Unknown] levothyroxine 88 mcg PO DAILY 06/26/21 [History Last Taken Unknown] nitrofurantoin monohyd/m-cryst 100 mg PO Q12 #14 capsule 06/26/21 [Rx Last Taken Unknown] potassium chloride 10 meq PO QODAY 07/03/21 [History Last Taken Unknown] Allergy/AdvReac Type Severity Reaction Status Date / Time amoxicillin Allergy Hives Verified 06/26/21 19:28 Fish Containing Products Allergy Rash Verified 06/26/21 19:28 Iodinated Contrast Media Allergy Rash Verified 06/26/21 19:28 [Iodinated Contrast Media - IV Dye] Penicillins [PCN] Allergy Hives Verified 06/26/21 19:28 Family History Other Cancer Diabetes Heart disease Surgical History (Updated 06/30/21 @ 10:[address] Demarcus Huddleston MD) History of herniorrhaphy Liver transplant recipient Social History Smoking Status: Former smoker ROS ROS Narrative intubated, sedated Physical Exam Const Constitutional Narrative: intubated, sedated HEENT HEENT Narrative: right IJ central line. no other neck incisions. Lab / Micro Data Result Diagrams: 07/17/21 03:17 07/17/21 03:17 Labs: Laboratory Results - last 24 hr 07/17/21 03:17: WBC 12.3 H, RBC 2.83 L, Hgb 8.0 L, Hct 25.0 L, MCV 88.3, MCH 28.3, MCHC 32.0, RDW Std Deviation 46.5 H, RDW Coeff of Tyrell 14.8 H, Plt Count 180, MPV 9.0, Immature Gran % (Auto) 4.500 H, Neut % (Auto) 83.6 H, Lymph % (Auto) 5.1 L, [place] % (Auto) 6.7, Eos % (Auto) 0.0, Baso % (Auto) 0.1, Absolute Neuts (auto) 10.3 H, Absolute Lymphs (auto) 0.62 L, Nucleated RBC % 0.6 07/17/21 03:17: Sodium 128 L, Potassium 4.2, Chloride 95 L, Carbon Dioxide 23.0, Anion Gap 10, BUN 89 H, Creatinine 4.54 H, Estim Creat Clear Calc 10.49, Est GFR (MDRD) Af Amer 13 L, Est GFR (MDRD) Non-Af 10 L, BUN/Creatinine Ratio 19.6, Glucose 177 H, Calcium 7.7 L 07/17/21 06:22: Random Vancomycin 17.1 H Micro: Microbiology 07/11/21 15:00 Blood Culture (Wb) - Right Wrist Blood Culture - Final No growth in 5 days. 07/11/21 15:15 Blood Culture (Wb) - Right Hand Blood Culture - Final No growth in 5 days. Charges/Coding Addendum Addendum: 61 year old female s/p pneumonia, respiratory failure -intubation day 12 -will plan on a tracheostomy next week
--- NOTE | 2021-07-17 12:13 | PCM.PN.ID ---
Physical Exam Narrative HD this AM, low grade temps, on vent, daughter at bedside Const no apparent distress Resp clear to auscultation bilaterally Effort and Inspection: mechanically ventilated Cardio regular rate and regular rhythm GI soft to palpation, non-tender and non-distended Skin no rashes or lesions noted ID ID: Route of nutrition/ use of supplements: [] Nutritional Intake: [] IV Site: [] Richardson Catheter: [] Charges/Coding Multi Select Codes Addendum Addendum: Sick for approximately 3 weeks prior to admit. Covid vaccine x3. Also flu B Ag (+). On cellcept, tacro, pred, bactrim at home with h/o liver transplant. Not candidate for baricitinib due to liver transplant. On dex here and completed empiric course of cefepime. Ucx with ecoli, 80-100k. Completed 5 days of tamiflu for flu coverage. Remains intubated. Worsening OPAL, now on HD. New fevers, started on empiric vanc/eli 2/6. O2 stable. Sputum with some CoNS, yeast. Will follow
--- NOTE | 2021-07-17 12:43 | DIALYSIS ---
Hemodialysis x3.5 hours completed at 1220 on a 2K bath, tolerated fairly well with Levophed, UF 2100mL, accessed via right neck temporary dialysis catheter, worked well with lines reversed, next tx planned for Tuesday
[2021-07-17] MEDS: Tacrolimus Anhydrous 1 MG Capsule 2 MG GT ×2 (12:55→21:04)
[2021-07-17] MEDS: dexAMETHasone 10 MG/ML Vial 6 MG IV (12:55)
[2021-07-17] MEDS: Lactulose 20 GM/30 ML UDC GT (12:55)
[2021-07-17] MEDS: Cholecalciferol (VIT D3) 25 MCG TABLET (1,000 UNITS) 50 MCG GT (12:56)
[2021-07-17] MEDS: rifAXIMin 550 MG Tablet GT ×2 (12:56→21:06)
[2021-07-17] MEDS: Levothyroxine 88 MCG Tablet GT (12:56)
[2021-07-17] MEDS: Tacrolimus 0.5 MG Capsule GT ×2 (12:56→21:05)
[2021-07-17] MEDS: Ursodiol 250 MG Tablet GT ×2 (12:56→21:05)
[2021-07-17] MEDS: Calcium (Elemental) 500 MG Tablet GT ×2 (12:56→21:05)
[2021-07-17] MEDS: QUEtiapine 100 MG Tablet PO ×2 (12:57→21:05)
[2021-07-17] MEDS: Aspirin 81 MG TAB.CHEW GT (12:57)
[2021-07-17] MEDS: Chlorhexidine 15 ML PO ×2 (12:57→21:03)
[2021-07-17] MEDS: Polyethylene Glycol 3350 17 GM PACKET GT (12:57)
[2021-07-17] MEDS: Smz/Tmp Ds Tablet 1 TABLET GT (12:57)
[2021-07-17] MEDS: Senna/Docusate Sodium 1 Tablet GT ×2 (12:58→21:05)
[2021-07-17] MEDS: Menthol/Lanolin/Calamine/Znox 113 GM Tube 1 APPLIC TOPICAL ×2 (12:59→21:16)
--- NOTE | 2021-07-17 15:20 | PCM.PN.REN ---
Subjective Subjective no new events Objective Data Objective Data Vital Signs: Vital Signs Temp Pulse Resp BP Pulse Ox 99.5 F H 89 25 H 103/65 90 07/17/21 14:00 07/17/21 14:00 07/17/21 14:00 07/17/21 14:30 07/17/21 14:00 Oxygen Flow Rate (L/min) [ 3 AMBULATING with Oxygen #1] Oxygen Flow Rate (L/min) 100 Oxygen Delivery Method Mechanical Ventilator Weight: 104.7 kg Body Mass Index (BMI) 40.8 Intake & Output: Intake and Output for Last 24 Hours 07/15/21 07/16/21 07/17/21 23:59 23:59 23:59 Intake Total 2048.24 / 2188.34 3545.82 / 3668.97 2397.38 / 2397.38 Output Total 1165 / 1215 235 / 235 2170 / 2170 Balance 883.24 / 973.34 3310.82 / 3433.97 227.38 / 227.38 Lab / Micro Data Result Diagrams: 07/17/21 03:17 07/17/21 03:17 Labs: Laboratory Results - last 24 hr 07/17/21 03:17: WBC 12.3 H, RBC 2.83 L, Hgb 8.0 L, Hct 25.0 L, MCV 88.3, MCH 28.3, MCHC 32.0, RDW Std Deviation 46.5 H, RDW Coeff of Tyrell 14.8 H, Plt Count 180, MPV 9.0, Immature Gran % (Auto) 4.500 H, Neut % (Auto) 83.6 H, Lymph % (Auto) 5.1 L, [place] % (Auto) 6.7, Eos % (Auto) 0.0, Baso % (Auto) 0.1, Absolute Neuts (auto) 10.3 H, Absolute Lymphs (auto) 0.62 L, Nucleated RBC % 0.6 07/17/21 03:17: Sodium 128 L, Potassium 4.2, Chloride 95 L, Carbon Dioxide 23.0, Anion Gap 10, BUN 89 H, Creatinine 4.54 H, Estim Creat Clear Calc 10.49, Est GFR (MDRD) Af Amer 13 L, Est GFR (MDRD) Non-Af 10 L, BUN/Creatinine Ratio 19.6, Glucose 177 H, Calcium 7.7 L 07/17/21 06:22: Random Vancomycin 17.1 H Micro: Microbiology 07/11/21 15:00 Blood Culture (Wb) - Right Wrist Blood Culture - Final No growth in 5 days. 07/11/21 15:15 Blood Culture (Wb) - Right Hand Blood Culture - Final No growth in 5 days. 07/11/21 15:00 Urine Catheter - Richardson Urine Culture - Final Yeast, not Rosio albicans 07/11/21 15:25 Sputum, Induced/Lukens Gram Stain - Final 07/11/21 15:25 Sputum, Induced/Lukens Respiratory Culture - Final Coag Negative Staph 07/06/21 11:20 Sputum, Induced/Lukens Gram Stain - Final 07/06/21 11:20 Sputum, Induced/Lukens Respiratory Culture - Final Culture exhibits no growth. 06/28/21 12:01 Blood Culture (Wb) - Right Hand Blood Culture - Final No growth in 5 days. 06/28/21 11:52 Blood Culture (Wb) - Left Hand Blood Culture - Final No growth in 5 days. 06/26/21 20:35 Urine, Clean Catch Streptococcus pneumoniae Antigen (M - Final 06/26/21 20:35 Urine, Clean Catch Legionella Antigen - Final 06/28/21 16:50 Mucosa - Nasopharyngeal Influenza Types A,B Direct FA (ROSEMARIE) - Final Influenzae B 06/26/21 20:35 Urine, Clean Catch Urine Culture - Final Escherichia coli Physical Exam Narrative Intubated sedated pallor+ s1s2 bilateral air entry soft no edema no cyanosis Assessment & Plan Assessment/Plan (1) OPAL (acute kidney injury): PLAN: -OPAL is likely due to ischemic ATN related to sepsis. The patient remains oliguric -Dialysis was initiated on 07/08/2021. essentially daily dialysis -last HD 07/15/21 possible trach she is on pressors today, levophed 15 mcg doubt she will give more fluid off HD today and plan for MWF (2) Chronic kidney disease, stage 3a: PLAN: -Baseline serum creatinine is 1.4 mg/dL. (3) Immunosuppressed status: PLAN: -The patient is status post orthotopic liver transplantation. -On tacrolimus, CellCept, prednisone. CellCept is on hold as per transplant team recommendation due to COVID-19 infection. -The patient is also being followed by GI. (4) Acute respiratory failure with hypoxia: PLAN: -The patient is ventilator dependent. -She is being treated for COVID-19 pneumonia along with influenza B pneumonia.
[2021-07-17] MEDS: Vancomycin IV 500 MG/100 ML BAG 100 MG IV (15:31)
--- NOTE | 2021-07-17 15:41 | NURSING ---
All personal belongings given to daughter, Negro Call. Personal belongings list completed on paper and placed in chart.
[2021-07-17] MEDS: Atorvastatin Calcium 10 MG Tablet GT (21:06)
[2021-07-17] MEDS: 0.9% Saline Lock 10 ML Syringe IV (21:19)
[2021-07-18] VITALS (55 sets, daily range): BP systolic 91–139; BP diastolic 42–65; PULSE 74–104; RESP 19–34; TEMP -12–39; O2SAT 87–97
[2021-07-18] MEDS: CHLORHEXIDINE GLUC 2% CLOTH 1 EACH TOWELETTE TOPICAL (03:03)
[2021-07-18] MEDS: Enoxaparin 30 MG/0.3 ML Syringe SC (05:05)
[2021-07-18 05:14] LABS: Absolute Lymphocyte Count 0.61 X10^3/uL (0.83-4.51); Absolute Neutrophil Count 10.6 X10^3/uL (2.0-7.7); Basophil# 0.02 X10^3/uL; Basophil% 0.2 % (0-1); Eosinophil# 0.01 X10^3/uL; Eosinophils% 0.1 % (0-5); Hematocrit 23.1 % (37-47); Hemoglobin 7.4 g/dL (12.0-15.0); Lymphocyte # 0.61 X10^3/ul (0.83-4.51); Lymphocyte % 4.9 % (19-41); Mean Corpuscular Hgb 28.2 pg (27.0-32.0); Mean Corpuscular Volume 88.2 fL (81-99); Mean Platelet Vol. 9.5 fl (6.2-12.0); Monocyte# 0.76 X10^3/uL; Monocyte% 6.1 % (0-10); NRBC Flagged by Analyzer 0.6 % (0-5); Neutrophil # 10.63 X10^3/uL (2.7-7.7); Neutrophil % 85.3 % (47-70); Platelet Count 183 K/mm3 (150-450); RBC Distribution Width CV 15.1 % (11.6-14.6); RBC Distribution Width SD 46.8 fl (35.1-43.9); Red Blood Count 2.62 M/mm3 (4.2-5.4); White Blood Count 12.5 K/mm3 (4.4-11.0)
[2021-07-18 05:36] LABS: Anion Gap 10 (5-15); BUN 62 mg/dL (7-18); BUN/Creat Ratio 21.9 RATIO (10-20); Calcium,Total 7.2 mg/dL (8.5-10.1); Chloride 98 mmol/L (98-107); Creatinine, Serum 2.83 mg/dL (0.55-1.02); EST Glomerular Filtration Rate 18 mL/min (>60); Est Glom Filt Rate - Afr Amer 22 mL/min (>60); Estimated Creatinine Clearance 16.83 ml/min; Glucose 187 mg/dL (74-106); Potassium 4.2 mmol/L (3.5-5.1); Sodium Level 131 mmol/L (136-145)
--- NOTE | 2021-07-18 06:41 | PN.CC_ITS ---
Assessment & Plan Assessment/Plan (1) COVID-19: (2) Influenza B: PLAN: RECOMMENDATIONS: 1. Continue mechanical ventilation and wean FiO2 for saturations greater than 90%. 2. Continue antimicrobials. 3. Ongoing hemodialysis with volume removal, per nephrology recommendations. 4. Continue appropriate ICU prophylaxis. 5. Continue tube feeds as tolerated. 6. Continue vasopressor support to maintain a mean arterial pressure at or above 65 mmHg. 7. Recheck liver function and coagulation profile. 8. Send type and screen. IMPRESSIONS: 1. Acute hypoxemic respiratory failure secondary to COVID-19/influenza B The patient was initially admitted to the hospital on June 27 and subsequently tested positive for both COVID-19 and influenza. The patient is vaccinated at her baseline. However, she is immunosuppressed due to a history of a liver transplant. The patient's oxygenation status progressively worsened over the course of her hospitalization, ultimately culminating in intubation on July 06. She has completed a treatment course of Tamiflu. She has been continued on Decadron and prophylactic Lovenox. In light of recent fevers, the patient was also started on empiric antimicrobials. Continue to wean FiO2 to maintain saturations at or above 90%. Ongoing volume optimization through hemodialysis per nephrology recommendations. The patient's family is agreeable to tracheostomy, if clinically indicated. 2. Distributive shock Likely multifactorial with underlying infection and hemodynamic effects of sedative medication use contributing. Continue vasopressor support as ordered to maintain a mean arterial pressure at or above 65 mmHg. 3. Acute kidney injury Likely secondary to ischemic ATN in the setting of #1. Nephrology is currently following to assist with hemodialysis needs and volume removal. 4. Chronic baseline immunosuppressed state secondary to liver transplantation Continue baseline outpatient immunosuppressive regimen, with the exception of CellCept. Liver function profile remains within normal limits. Tacrolimus levels were within normal limits. Continuing Decadron to help with immunosuppression past the normal 10 days for COVID-19. 5. Anemia Plan to send type and screen. Continue to monitor H&H and transfuse if hemoglobin drops below 7 g/dL. Continue PPI therapy as ordered. 6. Morbid obesity/asthma/hypothyroidism/hyperlipidemia/GERD Complicates care, management, recovery and prognosis. Continue home medications as indicated. Poor overall prognosis. TIME: 33 minutes of critical care time, independent of procedures, was spent addressing the patient's acute hypoxemic respiratory failure secondary to COVID- 19/influenza B, distributive shock, acute kidney injury, anemia, review of all data and collaboration with the care team. Subjective Subjective The patient was seen and examined at the bedside this morning. Events from the last 24 hours have been reviewed. Today is day #13. The patient has been having fevers with a temperature this morning noted to be 101.4 ?F. She remains otherwise hemodynamically stable on Levophed at 20 mcg/min. The patient remains on assist control mode of mechanical ventilation with an FiO2 requirement of 65% and PEEP of 14. She tolerated dialysis yesterday with 2.1 L of fluid off. She remains sedated on Precedex and fentanyl. The patient is documented to be overall net +12.7 L for the hospitalization. Hemoglobin is down to 7.4 g/dL this morning. I called and spoke with the patient's daughter Negro this morning and made her aware that I feel it is highly unlikely that even after a tracheostomy that she will be able to be weaned from ventilatory support. In addition, I explained that her kidneys are no longer working appropriately and she will likely be dialysis dependent. Despite her poor prognosis and the fact that it is highly unlikely she will ever be able to be weaned from ventilatory support, the patient's family wishes to proceed with tracheostomy and PEG tube. Objective Data Objective Data The patient's most recent lab work, culture data and imaging studies have all been personally reviewed. Coronavirus PCR was positive on June 26. Influenza screen was positive for flu B. Vital Signs: Vital Signs Temp Pulse Resp BP Pulse Ox 101.4 F H 91 26 H 135/57 H 93 07/18/21 06:00 07/18/21 06:00 07/18/21 06:00 07/18/21 06:00 07/18/21 06:00 Oxygen Flow Rate (L/min) [ 3 AMBULATING with Oxygen #1] Oxygen Flow Rate (L/min) 100 Oxygen Delivery Method Mechanical Ventilator Weight: 106 kg Body Mass Index (BMI) 40.8 Intake & Output: Intake and Output for Last 24 Hours 07/16/21 07/17/21 07/18/21 23:59 23:59 23:59 Intake Total 3545.82 / 3668.97 3887.99 / 3982.21 1502.84 / 1502.84 Output Total 235 / 235 2200 / 2210 40 / 40 Balance 3310.82 / 3433.97 1687.99 / 1772.21 1462.84 / 1462.84 Lab / Micro Data Attestation: I reviewed the patient's lab results. Result Diagrams: 07/18/21 05:00 07/18/21 05:00 Labs: Laboratory Results - last 24 hr 07/17/21 06:22: Random Vancomycin 17.1 H 07/18/21 05:00: WBC 12.5 H, RBC 2.62 L, Hgb 7.4 L, Hct 23.1 L, MCV 88.2, MCH 28.2, MCHC 32.0, RDW Std Deviation 46.8 H, RDW Coeff of Tyrell 15.1 H, Plt Count 183, MPV 9.5, Immature Gran % (Auto) 3.400 H, Neut % (Auto) 85.3 H, Lymph % (Auto) 4.9 L, [place] % (Auto) 6.1, Eos % (Auto) 0.1, Baso % (Auto) 0.2, Absolute Neuts (auto) 10.6 H, Absolute Lymphs (auto) 0.61 L, Nucleated RBC % 0.6 07/18/21 05:00: Sodium 131 L, Potassium 4.2, Chloride 98, Carbon Dioxide 23.0, Anion Gap 10, BUN 62 H, Creatinine 2.83 H, Estim Creat Clear Calc 16.83, Est GFR (MDRD) Af Amer 22 L, Est GFR (MDRD) Non-Af 18 L, BUN/Creatinine Ratio 21.9 H, Glucose 187 H, Calcium 7.2 L Micro: Microbiology 07/11/21 15:00 Blood Culture (Wb) - Right Wrist Blood Culture - Final No growth in 5 days. 07/11/21 15:15 Blood Culture (Wb) - Right Hand Blood Culture - Final No growth in 5 days. 07/11/21 15:00 Urine Catheter - Richardson Urine Culture - Final Yeast, not Rosio albicans 07/11/21 15:25 Sputum, Induced/Lukens Gram Stain - Final 07/11/21 15:25 Sputum, Induced/Lukens Respiratory Culture - Final Coag Negative Staph 07/06/21 11:20 Sputum, Induced/Lukens Gram Stain - Final 07/06/21 11:20 Sputum, Induced/Lukens Respiratory Culture - Final Culture exhibits no growth. 06/28/21 12:01 Blood Culture (Wb) - Right Hand Blood Culture - Final No growth in 5 days. 06/28/21 11:52 Blood Culture (Wb) - Left Hand Blood Culture - Final No growth in 5 days. 06/26/21 20:35 Urine, Clean Catch Streptococcus pneumoniae Antigen (M - Final 06/26/21 20:35 Urine, Clean Catch Legionella Antigen - Final 06/28/21 16:50 Mucosa - Nasopharyngeal Influenza Types A,B Direct FA (ROSEMARIE) - Final Influenzae B 06/26/21 20:35 Urine, Clean Catch Urine Culture - Final Escherichia coli Physical Exam Const Constitutional Narrative: Intubated, sedated and mechanically ventilated. No ventilator dyssynchrony. Nutritional Appearance: morbidly obese HEENT normocephalic and head/scalp atraumatic Mouth: endotracheal tube in place and OG tube in place Eyes PERRL and EOMs intact bilaterally Neck supple General: trachea midline and CVC in place Chest inspection of chest normal Resp Effort and Inspection: tachypneic Auscultation: diminished lung sounds; Negative for rales, rhonchi or wheezes Cardio regular rate, regular rhythm, S1 normal heart sound and S2 normal heart sound Heart Sounds: murmur GI normal to inspection, nondistended, normoactive bowel sounds Extremity no clubbing, cyanosis or edema Skin no rashes or lesions noted Neuro Sensorium / Orientation: sedated on vent Charges/Coding Procedures Hospitalists Procedures: 18113 Critial Care 1st Hr
[2021-07-18] MEDS: Dexmedetomidine 1,000 mcg in 0.9% NS 240 mL 20.1 MCG CONT INF (07:39)
[2021-07-18 07:57] LABS: AST(SGOT) 22 U/L (15-37); Alanine Aminotransfer ALT/SGPT 15 U/L (13-56); Albumin, Serum 2.1 g/dL (3.2-5.0); Alkaline Phosphatase 82 U/L (45-117); Bilirubin, Direct 0.15 mg/dL (0.00-0.30); Globulin 3.7 g/dL (2.2-4.2); Protein, Total 5.8 g/dL (6.4-8.2)
[2021-07-18 08:14] LABS: International Normalized Ratio 1.2; Prothrombin Time (Protime)PT. 14.5 SECONDS (11.7-14.9)
[2021-07-18] MEDS: Cholecalciferol (VIT D3) 25 MCG TABLET (1,000 UNITS) 50 MCG GT (09:07)
[2021-07-18] MEDS: Ursodiol 250 MG Tablet GT ×2 (09:07→21:13)
[2021-07-18] MEDS: Senna/Docusate Sodium 1 Tablet GT ×2 (09:07→21:14)
[2021-07-18] MEDS: Calcium (Elemental) 500 MG Tablet GT ×2 (09:07→21:12)
[2021-07-18] MEDS: Levothyroxine 88 MCG Tablet GT (09:07)
[2021-07-18] MEDS: Aspirin 81 MG TAB.CHEW GT (09:07)
[2021-07-18] MEDS: rifAXIMin 550 MG Tablet GT ×2 (09:08→21:16)
[2021-07-18] MEDS: Tacrolimus Anhydrous 1 MG Capsule 2 MG GT ×2 (09:08→21:15)
[2021-07-18] MEDS: Ferrous Gluconate 324 MG Tablet PO (09:08)
[2021-07-18] MEDS: QUEtiapine 100 MG Tablet PO ×2 (09:08→21:13)
[2021-07-18] MEDS: Tacrolimus 0.5 MG Capsule GT ×2 (09:08→21:16)
[2021-07-18] MEDS: Polyethylene Glycol 3350 17 GM PACKET GT (09:08)
[2021-07-18] MEDS: Chlorhexidine 15 ML PO ×2 (09:09→21:02)
[2021-07-18] MEDS: Menthol/Lanolin/Calamine/Znox 113 GM Tube 1 APPLIC TOPICAL ×2 (09:09→21:03)
[2021-07-18] MEDS: Lactulose 20 GM/30 ML UDC GT (09:10)
[2021-07-18] MEDS: dexAMETHasone 10 MG/ML Vial 6 MG IV (09:10)
--- NOTE | 2021-07-18 09:49 | PN.HOSP_ITS ---
Subjective Subjective Patient remains intubated and sedated. Continues to have fevers with T-max in last 24 hours at 101.4. Currently has cooling blanket in place. Is on broad- spectrum antibiotics. Remains on Levophed at 20. Is requiring an FiO2 of 65% and a PEEP of 14 to maintain oxygen saturation. Discussed case with aerial gunner superintendent and he talked to the family yesterday and they still would like to proceed with a trach. Objective Data Objective Data Vital Signs: Vital Signs Temp Pulse Resp BP Pulse Ox 101.3 F H 85 19 H 139/62 H 91 07/18/21 08:18 07/18/21 08:18 07/18/21 08:18 07/18/21 08:18 07/18/21 08:18 Oxygen Flow Rate (L/min) [ 3 AMBULATING with Oxygen #1] Oxygen Flow Rate (L/min) 100 Oxygen Delivery Method Mechanical Ventilator Weight: 106 kg Body Mass Index (BMI) 40.8 Intake & Output: Intake and Output for Last 24 Hours 07/16/21 07/17/21 07/18/21 23:59 23:59 23:59 Intake Total 3545.82 / 3668.97 3887.99 / 3982.21 1826.02 / 1826.02 Output Total 235 / 235 2200 / 2210 40 / 40 Balance 3310.82 / 3433.97 1687.99 / 1772.21 1786.02 / 1786.02 Lab / Micro Data Result Diagrams: 07/18/21 05:00 07/18/21 05:00 Labs: Laboratory Results - last 24 hr 07/18/21 05:00: WBC 12.5 H, RBC 2.62 L, Hgb 7.4 L, Hct 23.1 L, MCV 88.2, MCH 28.2, MCHC 32.0, RDW Std Deviation 46.8 H, RDW Coeff of Tyrell 15.1 H, Plt Count 183, MPV 9.5, Immature Gran % (Auto) 3.400 H, Neut % (Auto) 85.3 H, Lymph % (Auto) 4.9 L, [place] % (Auto) 6.1, Eos % (Auto) 0.1, Baso % (Auto) 0.2, Absolute Neuts (auto) 10.6 H, Absolute Lymphs (auto) 0.61 L, Nucleated RBC % 0.6 07/18/21 05:00: Sodium 131 L, Potassium 4.2, Chloride 98, Carbon Dioxide 23.0, Anion Gap 10, BUN 62 H, Creatinine 2.83 H, Estim Creat Clear Calc 16.83, Est GFR (MDRD) Af Amer 22 L, Est GFR (MDRD) Non-Af 18 L, BUN/Creatinine Ratio 21.9 H, Glucose 187 H, Calcium 7.2 L 07/18/21 07:30: PT 14.5, INR 1.2, APTT 28.0 07/18/21 07:30: Total Bilirubin 0.40, Direct Bilirubin 0.15, AST 22, ALT 15, Alkaline Phosphatase 82, Total Protein 5.8 L, Albumin 2.1 L, Globulin 3.7 07/18/21 07:30: Blood Type A POSITIVE, Antibody Screen NEGATIVE Micro: Microbiology 07/11/21 15:00 Blood Culture (Wb) - Right Wrist Blood Culture - Final No growth in 5 days. 07/11/21 15:15 Blood Culture (Wb) - Right Hand Blood Culture - Final No growth in 5 days. 07/11/21 15:00 Urine Catheter - Richardson Urine Culture - Final Yeast, not Rosio albicans 07/11/21 15:25 Sputum, Induced/Lukens Gram Stain - Final 07/11/21 15:25 Sputum, Induced/Lukens Respiratory Culture - Final Coag Negative Staph 07/06/21 11:20 Sputum, Induced/Lukens Gram Stain - Final 07/06/21 11:20 Sputum, Induced/Lukens Respiratory Culture - Final Culture exhibits no growth. 06/28/21 12:01 Blood Culture (Wb) - Right Hand Blood Culture - Final No growth in 5 days. 06/28/21 11:52 Blood Culture (Wb) - Left Hand Blood Culture - Final No growth in 5 days. 06/26/21 20:35 Urine, Clean Catch Streptococcus pneumoniae Antigen (M - Final 06/26/21 20:35 Urine, Clean Catch Legionella Antigen - Final 06/28/21 16:50 Mucosa - Nasopharyngeal Influenza Types A,B Direct FA (ROSEMARIE) - Final Influenzae B 06/26/21 20:35 Urine, Clean Catch Urine Culture - Final Escherichia coli Physical Exam Const Constitutional Narrative: Obese white female lying in bed, intubated and sedated General Appearance: intubated and patient mechanically ventilated Nutritional Appearance: morbidly obese HEENT normocephalic, head/scalp atraumatic and moist oral mucous membranes HEENT Narrative: ET tube in place, OG in place Head and Scalp: normocephalic Eyes PERRL and conjunctivae normal Eyes Narrative: No scleral icterus Resp normal respiratory effort, no retractions and no use of accessory muscles Resp Narrative: Diffusely diminished breath sounds but no adventitious sounds noted, tachypnea noted Auscultation: diminished lung sounds; Negative for crackles, rales, rhonchi or wheezes Cardio regular rate, regular rhythm, S1 normal heart sound, S2 normal heart sound, no murmurs, no rub, no gallops, no clicks and no JVD GI normal to inspection, nondistended, normoactive bowel sounds, soft to palpation and non-distended; Negative for hepatosplenomegaly Extremity normal to inspection Extremity Narrative: No cyanosis or clubbing, trace edema Peripheral Pulses: Yes pulses 2+ throughout Neuro Neuro Narrative: Intubated and sedated Sensorium / Orientation: sedated on vent Psych Appearance: intubated Assessment & Plan Assessment/Plan (1) Acute respiratory failure with hypoxia: (2) Influenza B: (3) COVID-19: (4) OPAL (acute kidney injury): (5) Shock: PLAN: Acute hypoxic respiratory failure secondary to influenza B and COVID- 19/superimposed bacterial pneumonia -Patient required intubation on 07/06/2021 -Had been on BiPAP for 48 continuous straight hours with worsening oxygenation -Intubated 07/06/2021--> vent day 13 -Remains on ventilator at an FiO2 of 65% with a PEEP of 14--> SPO2 93 to 94% -Possible trach and PEG next week -Had been sick for approximately 3 weeks prior to admission -Was vaccinated and boosted however was immunocompromised with CellCept, tacrolimus, and prednisone -Not a baricitinib candidate secondary to liver transplant -Decadron completed -Tamiflu completed -Continue prophylactic Lovenox -Pulmonary medicine following-appreciate input -ID following-appreciate input Distributive shock -Suspect multifactorial -Patient remains on pressors at 20 -Wean as able but maintain MAP equal or greater to 65 mmHg -Cultures are negative thus far -Patient remains on broad-spectrum antibiotics -Infectious diseases following -? Add antifungal -Check C. difficile with diarrhea and immunosuppression OPAL on CKD stage IIIa secondary to ischemic ATN -Dialysis was initiated on 07/08/2021 -Last HD was 07/15/2021 -Currently on pressors and suspect patient will not tolerate volume removal all that well -HD Tuesday -Nephrology is following and appreciate input Autoimmune hepatitis status post liver transplant -Patient remains on outpatient immunosuppression except for CellCept which is on hold per marketing database coordinator recommendations -Tacrolimus level was 3.7 and dose remains continued -Will need outpatient follow-up if patient survives acute hospitalization -Continue home rifaximin/lactulose via OG -Continue home Bactrim for PCP prophylaxis via OG -Continue home ursodiol Acute normocytic anemia -Suspect related to critical illness -No signs of obvious bleeding -Check Hemoccult stool History of asthma -As per above Hypothyroidism -Continue home Synthroid GERD -Continue IV Protonix 40 mg daily Hyperlipidemia -Continue home statin Obesity -BMI is 38.8 -Complicates treatment, prognosis, outcomes, -Recommend weight loss DVT prophylaxis -Continue Lovenox 30 mg subcu daily CODE STATUS -Full code as per discussion by the intensivists with the patient prior to intubation -Overall prognosis is likely poor given comorbidities and current status Charges/Coding Visit Charges Inpatient E&M: 39438 Subs Hosp L2
--- NOTE | 2021-07-18 11:16 | PCM.PN.REN ---
Subjective Subjective Following for OPAL. Patient remains on ventilator. Cannot do ROS. No significant change overnight. Objective Data Objective Data Vital Signs: Vital Signs Temp Pulse Resp BP Pulse Ox 101.3 F H 103 H 25 H 139/62 H 88 07/18/21 08:18 07/18/21 10:11 07/18/21 10:11 07/18/21 08:18 07/18/21 10:11 Oxygen Flow Rate (L/min) [ 3 AMBULATING with Oxygen #1] Oxygen Flow Rate (L/min) 100 Oxygen Delivery Method Mechanical Ventilator Weight: 106 kg Body Mass Index (BMI) 40.8 Intake & Output: Intake and Output for Last 24 Hours 07/16/21 07/17/21 07/18/21 23:59 23:59 23:59 Intake Total 3545.82 / 3668.97 3887.99 / 3982.21 1826.02 / 1826.02 Output Total 235 / 235 2200 / 2210 40 / 40 Balance 3310.82 / 3433.97 1687.99 / 1772.21 1786.02 / 1786.02 Lab / Micro Data Result Diagrams: 07/19/21 04:10 07/19/21 04:10 Labs: Laboratory Results - last 24 hr 07/18/21 05:00: WBC 12.5 H, RBC 2.62 L, Hgb 7.4 L, Hct 23.1 L, MCV 88.2, MCH 28.2, MCHC 32.0, RDW Std Deviation 46.8 H, RDW Coeff of Tyrell 15.1 H, Plt Count 183, MPV 9.5, Immature Gran % (Auto) 3.400 H, Neut % (Auto) 85.3 H, Lymph % (Auto) 4.9 L, [place] % (Auto) 6.1, Eos % (Auto) 0.1, Baso % (Auto) 0.2, Absolute Neuts (auto) 10.6 H, Absolute Lymphs (auto) 0.61 L, Nucleated RBC % 0.6 07/18/21 05:00: Sodium 131 L, Potassium 4.2, Chloride 98, Carbon Dioxide 23.0, Anion Gap 10, BUN 62 H, Creatinine 2.83 H, Estim Creat Clear Calc 16.83, Est GFR (MDRD) Af Amer 22 L, Est GFR (MDRD) Non-Af 18 L, BUN/Creatinine Ratio 21.9 H, Glucose 187 H, Calcium 7.2 L 07/18/21 07:30: PT 14.5, INR 1.2, APTT 28.0 07/18/21 07:30: Total Bilirubin 0.40, Direct Bilirubin 0.15, AST 22, ALT 15, Alkaline Phosphatase 82, Total Protein 5.8 L, Albumin 2.1 L, Globulin 3.7 07/18/21 07:30: Blood Type A POSITIVE, Antibody Screen NEGATIVE Micro: Microbiology 07/11/21 15:00 Blood Culture (Wb) - Right Wrist Blood Culture - Final No growth in 5 days. 07/11/21 15:15 Blood Culture (Wb) - Right Hand Blood Culture - Final No growth in 5 days. 07/11/21 15:00 Urine Catheter - Richardson Urine Culture - Final Yeast, not Rosio albicans 07/11/21 15:25 Sputum, Induced/Lukens Gram Stain - Final 07/11/21 15:25 Sputum, Induced/Lukens Respiratory Culture - Final Coag Negative Staph 07/06/21 11:20 Sputum, Induced/Lukens Gram Stain - Final 07/06/21 11:20 Sputum, Induced/Lukens Respiratory Culture - Final Culture exhibits no growth. 06/28/21 12:01 Blood Culture (Wb) - Right Hand Blood Culture - Final No growth in 5 days. 06/28/21 11:52 Blood Culture (Wb) - Left Hand Blood Culture - Final No growth in 5 days. 06/26/21 20:35 Urine, Clean Catch Streptococcus pneumoniae Antigen (M - Final 06/26/21 20:35 Urine, Clean Catch Legionella Antigen - Final 06/28/21 16:50 Mucosa - Nasopharyngeal Influenza Types A,B Direct FA (ROSEMARIE) - Final Influenzae B 06/26/21 20:35 Urine, Clean Catch Urine Culture - Final Escherichia coli Physical Exam Narrative General:On ventilator, sedated HEENT: Intubated. CV: Tachycardic S1/S2. No R/M/G. Lungs: Coarse BS BL. Abdomen: Soft, no G/R. Extremities: No edema, no cyanosis Assessment & Plan Assessment/Plan (1) OPAL (acute kidney injury): PLAN: -OPAL is likely due to ischemic ATN related to sepsis. The patient remains oliguric -Dialysis was initiated on 07/08/2021. -On MWF dialysis schedule. -No need for HD today. -Anticipate next HD on 07/20/21. (2) Chronic kidney disease, stage 3a: PLAN: -Baseline serum creatinine is 1.4 mg/dL. (3) Immunosuppressed status: PLAN: -The patient is status post orthotopic liver transplantation. -On tacrolimus, CellCept, prednisone. CellCept is on hold as per transplant team recommendation due to COVID-19 infection. -The patient is also being followed by GI. (4) Acute respiratory failure with hypoxia: PLAN: -The patient is ventilator dependent. -She is being treated for COVID-19 pneumonia along with influenza B pneumonia. -UF as possible with HD (limited by low BP).
[2021-07-18] MEDS: Acetaminophen 650 MG/20 ML UDC GT (14:03)
[2021-07-18] MEDS: Vital AF 1.2 Cal Liquid 1,000 ML 60 ML GT (14:16)
[2021-07-18] MEDS: Hydrocortisone Sod Succinate 100 MG/2 ML Vial 50 MG IV (16:26)
[2021-07-18] MEDS: Dexmedetomidine 1,000 mcg in 0.9% NS 240 mL 22.7 MCG CONT INF (18:44)
[2021-07-18] MEDS: Atorvastatin Calcium 10 MG Tablet GT (21:13)
[2021-07-19] VITALS (51 sets, daily range): BP systolic 86–149; BP diastolic 47–80; PULSE 58–99; RESP 14–32; TEMP 35.5–36.6; O2SAT 86–97
--- NOTE | 2021-07-19 | NURSING ---
Vent FiO2 increased back to 60%, pt pulse ox steadily 86% while on 55% FiO2.
[2021-07-19] MEDS: Hydrocortisone Sod Succinate 100 MG/2 ML Vial 50 MG IV ×4 (00:22→16:45)
--- NOTE | 2021-07-19 02:20 | NURSING ---
Pt's ETT lavaged w/ NS bullet d/t spiking PEAK pressure readings of 57 on vent screen; mod-lg amt thick blood tinged sputum suctioned after NS instillation. Pt more alert at this time, following her bath; dyssynchrony w/vent. PEAK pressure returns to high 30s-low 40s.
[2021-07-19 04:24] LABS: Hematocrit 21.8 % (37-47); Hemoglobin 6.9 g/dL (12.0-15.0); Mean Corp Hgb Conc 31.7 g/dL (32-36); Mean Corpuscular Hgb 28.4 pg (27.0-32.0); Mean Corpuscular Volume 89.7 fL (81-99); Mean Platelet Vol. 9.6 fl (6.2-12.0); POSITIVE COUNT YES; POSITIVE DIFFERENTIAL YES; POSITIVE MORPHOLOGY YES; Platelet Count 158 K/mm3 (150-450); RBC Distribution Width CV 15.4 % (11.6-14.6); RBC Distribution Width SD 48.4 fl (35.1-43.9); Red Blood Count 2.43 M/mm3 (4.2-5.4); White Blood Count 9.2 K/mm3 (4.4-11.0)
[2021-07-19 04:32] LABS: Differential Indicated MANUAL DIFF
[2021-07-19 04:37] LABS: Absolute Lymphocyte Count 0.37 X10^3/uL (0.83-4.51); Absolute Neutrophil Count 8.1 X10^3/uL (2.0-7.7); Total Cells Counted 100 (MANUAL DIFF)
[2021-07-19 04:38] LABS: Lymphocyte 4 % (19-41); Monocyte 7 % (0-10); Myelocyte 1 % (0-0); Neutrophil-Segmented 88 % (47-70); Platelet Estimate ADEQUATE (ADEQ); Red Cell Morphology NORM C+C NORMAL (NORM C&C)
[2021-07-19 04:59] LABS: ALB/GLOB Ratio 0.6 RATIO (0.9-2.4); AST(SGOT) 15 U/L (15-37); Alanine Aminotransfer ALT/SGPT 16 U/L (13-56); Alkaline Phosphatase 77 U/L (45-117); Anion Gap 11 (5-15); BUN 101 mg/dL (7-18); BUN/Creat Ratio 27.6 RATIO (10-20); Calcium,Total 7.9 mg/dL (8.5-10.1); Chloride 94 mmol/L (98-107); Creatinine, Serum 3.66 mg/dL (0.55-1.02); EST Glomerular Filtration Rate 13 mL/min (>60); Est Glom Filt Rate - Afr Amer 16 mL/min (>60); Estimated Creatinine Clearance 13.01 ml/min; Globulin 3.6 g/dL (2.2-4.2); Glucose 237 mg/dL (74-106); Potassium 5.1 mmol/L (3.5-5.1); Protein, Total 5.6 g/dL (6.4-8.2); Sodium Level 128 mmol/L (136-145)
[2021-07-19] MEDS: Dexmedetomidine 1,000 mcg in 0.9% NS 240 mL 30.2 MCG CONT INF (05:00)
[2021-07-19] MEDS: TITRATION PARAMETER CHANGE 1 EACH IV ×2 (05:04→05:41)
[2021-07-19] MEDS: 0.9% Saline Lock 10 ML Syringe IV (05:04)
[2021-07-19] MEDS: CHLORHEXIDINE GLUC 2% CLOTH 1 EACH TOWELETTE TOPICAL (05:04)
[2021-07-19] MEDS: Vital AF 1.2 Cal Liquid 1,000 ML 60 ML GT (05:44)
--- NOTE | 2021-07-19 06:13 | PN.CC_ITS ---
Assessment & Plan Assessment/Plan (1) COVID-19: (2) Influenza B: PLAN: RECOMMENDATIONS: 1. Continue mechanical ventilation and wean FiO2 for saturations greater than 90%. 2. Continue antimicrobials and empiric antifungal coverage. 3. Ongoing hemodialysis with volume removal, per nephrology recommendations. 4. Continue SCDs for DVT prophylaxis in light of possible GI blood loss. 5. Increase Protonix to twice daily. 6. Continue stress dose steroids as ordered. 7. Transfuse blood products as ordered. Check H&H posttransfusion. 8. Continue vasopressor support to maintain a mean arterial pressure at or above 65 mmHg. IMPRESSIONS: 1. Acute hypoxemic respiratory failure secondary to COVID-19/influenza B The patient was initially admitted to the hospital on June 27 and subsequently tested positive for both COVID-19 and influenza. The patient is vaccinated at her baseline. However, she is immunosuppressed due to a history of a liver transplant. The patient's oxygenation status progressively worsened over the course of her hospitalization, ultimately culminating in intubation on July 06. She has completed a treatment course of Tamiflu. She has been continued on Decadron and prophylactic Lovenox. In light of recent fevers, the patient was also started on empiric antimicrobials. Continue to wean FiO2 to ma intain saturations at or above 90%. Ongoing volume optimization through hemodialysis per nephrology recommendations. The patient's family is agreeable to tracheostomy, if clinically indicated. 2. Distributive shock Likely multifactorial with underlying infection and hemodynamic effects of sedative medication use contributing. Continue vasopressor support as ordered t o maintain a mean arterial pressure at or above 65 mmHg. Continue stress dose steroids and wean as tolerated. 3. Acute kidney injury Likely secondary to ischemic ATN in the setting of #1. Nephrology is currently following to assist with hemodialysis needs and volume removal. 4. Chronic baseline immunosuppressed state secondary to liver transplantation Continue baseline outpatient immunosuppressive regimen, with the exception of CellCept. Liver function profile remains within normal limits. Tacrolimus levels were within normal limits. 5. Anemia Likely secondary to GI blood loss. Stool for occult blood was positive. Will plan to transfuse 2 units packed red blood cells today. Check H&H posttransfusion. Increase dosing frequency of Protonix to twice daily. 6. Morbid obesity/asthma/hypothyroidism/hyperlipidemia/GERD Complicates care, management, recovery and prognosis. Continue home medications as indicated. Poor overall prognosis. TIME: 35 minutes of critical care time, independent of procedures, was spent addressing the patient's acute hypoxemic respiratory failure secondary to COVID- 19/influenza B, distributive shock, acute kidney injury, anemia, review of all data and collaboration with the care team. Subjective Subjective The patient was seen and examined at the bedside this morning. Events from the last 24 hours have been reviewed. Today is day #14. The patient is currently afebrile and only requiring Levophed at 1 mcg/min to maintain hemody namic stability. She is currently documented to be overall net +15 L for the hospitalization. She remains on assist control mode mechanical ventilation with an FiO2 requirement of 65% and PEEP of 14. The patient is sedated on fentanyl and Precedex. Hemoglobin is down to 6.9 g/dL this morning. Yesterday, the patient was noted to have stool which was positive for occult blood. Therefore, her pharmacologic DVT prophylaxis was discontinued. She was also started on empiric fungal coverage yesterday as well. She remains on broad-spectrum antimicrobials. In addition, in light of her high utilization of Levophed, her Decadron was discontinued and she was placed on stress dose steroids, hydr ocortisone 50 mg every 6 hours. As noted previously, despite the patient's overall poor prognosis, the patient's family wishes to proceed with tracheostomy and PEG tube placement. Objective Data Objective Data The patient's most recent lab work, culture data and imaging studies have all been personally reviewed. Coronavirus PCR was positive on June 26. Influenza screen was positive for flu B. Vital Signs: Vital Signs Temp Pulse Resp BP Pulse Ox 97 F L 62 20 H 101/58 L 93 07/19/21 05:00 07/19/21 05:30 07/19/21 05:00 07/19/21 05:30 07/19/21 05:00 Oxygen Flow Rate (L/min) [ 3 AMBULATING with Oxygen #1] Oxygen Flow Rate (L/min) 100 Oxygen Delivery Method Mechanical Ventilator Weight: 107.9 kg Body Mass Index (BMI) 40.8 Intake & Output: Intake and Output for Last 24 Hours 07/17/21 07/18/21 07/19/21 23:59 23:59 23:59 Intake Total 3887.99 / 3982.21 3832.55 / 4293.70 1182.78 / 1182.78 Output Total 2200 / 2210 85 / 1165 1170 / 1170 Balance 1687.99 / 1772.21 3747.55 / 3128.70 Lab / Micro Data Attestation: I reviewed the patient's lab results. Result Diagrams: 07/19/21 04:10 07/19/21 04:10 Labs: Laboratory Results - last 24 hr 07/18/21 07:30: PT 14.5, INR 1.2, APTT 28.0 07/18/21 07:30: Total Bilirubin 0.40, Direct Bilirubin 0.15, AST 22, ALT 15, Alkaline Phosphatase 82, Total Protein 5.8 L, Albumin 2.1 L, Globulin 3.7 07/18/21 07:30: Blood Type A POSITIVE, Antibody Screen NEGATIVE 07/19/21 04:10: WBC 9.2, RBC 2.43 L, Hgb 6.9 L, Hct 21.8 L, MCV 89.7, MCH 28.4, MCHC 31.7 L, RDW Std Deviation 48.4 H, RDW Coeff of Tyrell 15.4 H, Plt Count 158, MPV 9.6, Neut % (Auto) Not Reportable, Absolute Neuts (auto) 8.1 H, Absolute Lymphs (auto) 0.37 L, Total Counted 100, Neutrophils % (Manual) 88 H, Lymphoc ytes % (Manual) 4 L, Monocytes % (Manual) 7, Myelocytes % 1 H, Diff Path Review October, Platelet Estimate ADEQUATE, RBC Morphology NORM C+C 07/19/21 04:10: Sodium 128 L, Potassium 5.1, Chloride 94 L, Carbon Dioxide 23.0, Anion Gap 11, BUN 101 H*, Creatinine 3.66 H, Estim Creat Clear Calc 13.01, Est GFR (MDRD) Af Amer 16 L, Est GFR (MDRD) Non-Af 13 L, BUN/Creatinine Ratio 27.6 H , Glucose 237 H, Calcium 7.9 L, Total Bilirubin 0.30, AST 15, ALT 16, Alkaline Phosphatase 77, Total Protein 5.6 L, Albumin 2.0 L, Globulin 3.6, Albumin/Globulin Ratio 0.6 L Micro: Microbiology 07/18/21 11:20 Stool C. difficile DNA Amplification - Final 07/18/21 11:20 Stool Stool Occult Blood (ROSEMARIE) - Final Occult Blood Positive 07/11/21 15:00 Blood Culture (Wb) - Right Wrist Blood Culture - Final No growth in 5 days. 07/11/21 15:15 Blood Culture (Wb) - Right Hand Blood Culture - Final No growth in 5 days. 07/11/21 15:00 Urine Catheter - Richardson Urine Culture - Final Yeast, not Roiso albicans 07/11/21 15:25 Sputum, Induced/Lukens Gram Stain - Final 07/11/21 15:25 Sputum, Induced/Lukens Respiratory Culture - Final Coag Negative Staph 07/06/21 11:20 Sputum, Induced/Lukens Gram Stain - Final 07/06/21 11:20 Sputum, Induced/Lukens Respiratory Culture - Final Culture exhibits no growth. 06/28/21 12:01 Blood Culture (Wb) - Right Hand Blood Culture - Final No growth in 5 days. 06/28/21 11:52 Blood Culture (Wb) - Left Hand Blood Culture - Final No growth in 5 days. 06/26/21 20:35 Urine, Clean Catch Streptococcus pneumoniae Antigen (M - Alison l 06/26/21 20:35 Urine, Clean Catch Legionella Antigen - Final 06/28/21 16:50 Mucosa - Nasopharyngeal Influenza Types A,B Direct FA (ROSEMARIE) - Final Influenzae B 06/26/21 20:35 Urine, Clean Catch Urine Culture - Final Escherichia coli Physical Exam Const Constitutional Narrative: Intubated, sedated and mechanically ventilated. No v entilator dyssynchrony. Nutritional Appearance: morbidly obese HEENT normocephalic and head/scalp atraumatic Mouth: endotracheal tube in place and OG tube in place Eyes PERRL and EOMs intact bilaterally Neck supple General: trachea midline and CVC in place Chest inspection of chest normal Resp Effort and Inspection: tachypneic Auscultation: diminished lung sounds; Negative for rales, rhonchi or wheezes Cardio regular rate, regular rhythm, S1 normal heart sound and S2 normal heart sound Heart Sounds: murmur GI normal to inspection, nondistended, normoactive bowel sounds Extremity no clubbing, cyanosis or edema Skin no rashes or lesions noted Neuro Sensorium / Orientation: sedated on vent Charges/Coding Procedures Hospitalists Procedures: 40308 Critial Care 1st Hr
[2021-07-19] MEDS: Tacrolimus 0.5 MG Capsule GT ×2 (07:41→21:22)
[2021-07-19] MEDS: Chlorhexidine 15 ML PO ×2 (07:41→21:20)
[2021-07-19] MEDS: QUEtiapine 100 MG Tablet PO ×2 (07:42→21:22)
[2021-07-19] MEDS: rifAXIMin 550 MG Tablet GT ×2 (07:43→21:22)
[2021-07-19] MEDS: Aspirin 81 MG TAB.CHEW GT (07:44)
[2021-07-19] MEDS: Cholecalciferol (VIT D3) 25 MCG TABLET (1,000 UNITS) 50 MCG GT (07:45)
[2021-07-19] MEDS: Ursodiol 250 MG Tablet GT ×2 (07:45→21:23)
[2021-07-19] MEDS: Lactulose 20 GM/30 ML UDC GT (07:46)
[2021-07-19] MEDS: Menthol/Lanolin/Calamine/Znox 113 GM Tube 1 APPLIC TOPICAL ×2 (07:46→21:24)
[2021-07-19] MEDS: Calcium (Elemental) 500 MG Tablet GT ×2 (07:46→21:21)
[2021-07-19] MEDS: Levothyroxine 88 MCG Tablet GT (07:54)
[2021-07-19] MEDS: Tacrolimus Anhydrous 1 MG Capsule 2 MG GT ×2 (07:55→21:23)
--- NOTE | 2021-07-19 08:33 | CON.PCM.SX_ITS ---
Assessment & Plan Assessment/Plan (1) Malnutrition: (2) COVID-19: (3) Influenza B: (4) Acute respiratory failure with hypoxia: (5) Immunosuppressed status: PLAN: Patient does have a chevron incision in her abdomen which could make an endoscopic PEG more challenging due to adhesions. Will evaluate previous CT abdomen pelvis?and discussed with patient's family. Will have patient n.p.o. at midnight in case we are able to do it tomorrow unsure of scheduling currently. Lona Sampson M.D. Pager: [phone] [facility] [address] [place] [address], Outpatient Pavilion, [address] [place] [address] Office: [phone] HPI Consult Data Date of Consult: 07/19/21 HPI Narrative HPI Narrative: CHELI FITCH, is a 61 F who has been intubated in the ICU for greater than 14 days also has significant past medical history of liver transplant. Patient initially admitted with Covid and pneumonia/flu B. Request PEG tube as ENT will be consulted for trach. Patient currently intubated and sedated. Per nursing staff patient's daughter wants to get the trach and PEG and see how she does for couple weeks with the trach before making any other decisions. FORMERLY [facility], [facility] Medical History (Updated 07/19/21 @ 10:[address] Lona Sampson MD) Former smoker Hypothyroidism Kidney disease Migraines Osteoporosis Home Medications albuterol sulfate [Ventolin HFA] 2 puff INHALATION Q6H PRN PRN 06/21/16 [History Last Taken Unknown] azathioprine 50 mg PO DAILY@0800 06/21/16 [History Last Taken 10/03/17] calcium-vitamin D3-vitamin K [Citracal-D3 Soft Chew] 1 ea PO DAILY 06/21/16 [History Last Taken 10/03/17] cyanocobalamin (vitamin B-12) [Vitamin B-12] 50,000 mcg PO MOORE 06/21/16 [History Last Taken 10/02/17] ondansetron 8 mg PO Q8H PRN PRN 06/21/16 [History Last Taken 07/12/17] pantoprazole 40 mg PO DAILY 06/21/16 [History Last Taken 10/03/17] zinc 50 mg PO DAILY 06/21/16 [History Last Taken 10/03/17] melatonin 3 mg PO QHS 09/04/16 [History Last Taken 10/02/17] furosemide 20 mg PO QODAY 11/02/16 [History Last Taken 10/02/17] tramadol 50 mg PO BID PRN PRN 02/14/17 [History Last Taken 10/03/17] ascorbic acid (vitamin C) [Vitamin C] 500 mg PO BIDCM 07/12/17 [History Last Taken 07/11/17] ferrous gluconate 325 mg PO BIDCM 07/12/17 [History Last Taken 10/03/17] Xifaxan 550 mg PO BID 10/04/17 [History Last Taken 10/03/17] calcium carbonate 500 mg PO BID 10/04/17 [History Last Taken Unknown] cholecalciferol (vitamin D3) [Vitamin D3] 2,000 unit PO DAILY 10/04/17 [History Last Taken 10/03/17] lactulose 60 ml PO BID #0 10/07/17 [Rx Last Taken 10/02/17] aspirin 81 mg PO DAILY 08/19/19 [History Last Taken Unknown] mycophenolate mofetil 250 mg PO BID 08/19/19 [History Last Taken Unknown] ondansetron 4 mg PO Q8H PRN PRN #7 tab 08/19/19 [Rx Last Taken Unknown] prednisone 5 mg PO DAILY 08/19/19 [History Last Taken Unknown] simvastatin 20 mg PO QHS 08/19/19 [History Last Taken Unknown] sulfamethoxazole-trimethoprim 1 ea PO MOWEFR 08/19/19 [History Last Taken Unknown] tacrolimus 0.5 mg PO Q12H 08/19/19 [History Last Taken Unknown] tacrolimus 2 mg PO Q12H 08/19/19 [History Last Taken Unknown] ursodiol 250 mg PO BID 08/19/19 [History Last Taken Unknown] levothyroxine 88 mcg PO DAILY 06/26/21 [History Last Taken Unknown] nitrofurantoin monohyd/m-cryst 100 mg PO Q12 #14 capsule 06/26/21 [Rx Last Taken Unknown] potassium chloride 10 meq PO QODAY 07/03/21 [History Last Taken Unknown] Allergy/AdvReac Type Severity Reaction Status Date / Time amoxicillin Allergy Hives Verified 06/26/21 19:28 Fish Containing Products Allergy Rash Verified 06/26/21 19:28 Iodinated Contrast Media Allergy Rash Verified 06/26/21 19:28 [Iodinated Contrast Media - IV Dye] Penicillins [PCN] Allergy Hives Verified 06/26/21 19:28 Family History Other Cancer Diabetes Heart disease Surgical History (Updated 06/30/21 @ 10:[address] Demarcus Huddleston MD) History of herniorrhaphy Liver transplant recipient Social History Smoking Status: Former smoker ROS Review of Systems ROS Unobtainable: due to endotracheal tube Physical Exam Narrative Patient is intubated and sedated. Const Nutritional Appearance: obese Resp Effort and Inspection: tachypneic Auscultation: diminished lung sounds Cardio Rate: regular rate GI soft to palpation GI Narrative: Patient does have chevron incision from previous liver transplant approximately 4 years ago. Well-healed Extremity General Extremity: edema Neuro Neuro Narrative: Patient intubated and sedated Psych Psych Narrative: Patient intubated and sedated Lab / Micro Data Result Diagrams: 07/19/21 04:10 07/19/21 04:10 Labs: Laboratory Results - last 24 hr 07/18/21 07:30: Blood Type A POSITIVE, Antibody Screen NEGATIVE 07/18/21 07:30: Crossmatch See Detail 07/19/21 04:10: WBC 9.2, RBC 2.43 L, Hgb 6.9 L, Hct 21.8 L, MCV 89.7, MCH 28.4, MCHC 31.7 L, RDW Std Deviation 48.4 H, RDW Coeff of Tyrell 15.4 H, Plt Count 158, MPV 9.6, Neut % (Auto) Not Reportable, Absolute Neuts (auto) 8.1 H, Absolute Lymphs (auto) 0.37 L, Total Counted 100, Neutrophils % (Manual) 88 H, Lymphocytes % (Manual) 4 L, Monocytes % (Manual) 7, Myelocytes % 1 H, Diff Path Review May , Platelet Estimate ADEQUATE, RBC Morphology NORM C+C 07/19/21 04:10: Sodium 128 L, Potassium 5.1, Chloride 94 L, Carbon Dioxide 23.0, Anion Gap 11, BUN 101 H*, Creatinine 3.66 H, Estim Creat Clear Calc 13.01, Est GFR (MDRD) Af Amer 16 L, Est GFR (MDRD) Non-Af 13 L, BUN/Creatinine Ratio 27.6 H , Glucose 237 H, Calcium 7.9 L, Total Bilirubin 0.30, AST 15, ALT 16, Alkaline Phosphatase 77, Total Protein 5.6 L, Albumin 2.0 L, Globulin 3.6, Albumin/Globulin Ratio 0.6 L Micro: Microbiology 07/18/21 11:20 Stool C. difficile DNA Amplification - Final 07/18/21 11:20 Stool Stool Occult Blood (ROSEMARIE) - Final Occult Blood Positive
[2021-07-19] MEDS: Fluconazole 100 MG in Viaflex Bag 1 BAG 50 MG IV (09:34)
[2021-07-19] MEDS: NEPRO TUBE FEED 1,000 ML 45 ML GT (10:48)
--- NOTE | 2021-07-19 11:46 | PN.HOSP_ITS ---
Subjective Subjective Patient remains intubated and sedated. Currently on FiO2 of 65% with a PEEP of 14. Oxygen saturations are 96% on these settings. She has been weaned to 1 benny per minute of Levophed. No significant overnight events. Objective Data Objective Data Vital Signs: Vital Signs Temp Pulse Resp BP Pulse Ox 96.6 F L 63 18 96/58 L 96 07/19/21 10:25 07/19/21 11:30 07/19/21 11:00 07/19/21 11:00 07/19/21 11:00 Oxygen Flow Rate (L/min) [ 3 AMBULATING with Oxygen #1] Oxygen Flow Rate (L/min) 100 Oxygen Delivery Method Mechanical Ventilator Weight: 107.9 kg Body Mass Index (BMI) 40.8 Intake & Output: Intake and Output for Last 24 Hours 07/17/21 07/18/21 07/19/21 23:59 23:59 23:59 Intake Total 3887.99 / 3982.21 3832.55 / 4293.70 2125.76 / 2125.76 Output Total 2200 / 2210 85 / 1165 1170 / 1170 Balance 1687.99 / 1772.21 3747.55 / 3128.70 955.76 / 955.76 Lab / Micro Data Result Diagrams: 07/19/21 04:10 07/19/21 04:10 Labs: Laboratory Results - last 24 hr 07/18/21 07:30: Crossmatch See Detail 07/19/21 04:10: WBC 9.2, RBC 2.43 L, Hgb 6.9 L, Hct 21.8 L, MCV 89.7, MCH 28.4, MCHC 31.7 L, RDW Std Deviation 48.4 H, RDW Coeff of Tyrell 15.4 H, Plt Count 158, MPV 9.6, Neut % (Auto) Not Reportable, Absolute Neuts (auto) 8.1 H, Absolute Lym phs (auto) 0.37 L, Total Counted 100, Neutrophils % (Manual) 88 H, Lymphocytes % (Manual) 4 L, Monocytes % (Manual) 7, Myelocytes % 1 H, Diff Path Review October, Platelet Estimate ADEQUATE, RBC Morphology NORM C+C 07/19/21 04:10: Sodium 128 L, Potassium 5.1, Chloride 94 L, Carbon Dioxide 23.0, Anion Gap 11, BUN 101 H*, Creatinine 3.66 H, Estim Creat Clear Calc 13.01, Est GFR (MDRD) Af Amer 16 L, Est GFR (MDRD) Non-Af 13 L, BUN/Creatinine Ratio 27.6 H , Glucose 237 H, Calcium 7.9 L, Total Bilirubin 0.30, AST 15, ALT 16, Alkaline Phosphatase 77, Total Protein 5.6 L, Albumin 2.0 L, Globulin 3.6, Albumin/Globulin Ratio 0.6 L Micro: Microbiology 07/18/21 11:20 Stool C. difficile DNA Amplification - Final 07/18/21 11:20 Stool Stool Occult Blood (BENNY) - Final Occult Blood Positive 07/11/21 15:00 Blood Culture (Wb) - Right Wrist Blood Culture - Final No growth in 5 days. 07/11/21 15:15 Blood Culture (Wb) - Right Hand Blood Culture - Final No growth in 5 days. 07/11/21 15:00 Urine Catheter - Richardson Urine Culture - Final Yeast, not Rosio albicans 07/11/21 15:25 Sputum, Induced/Lukens Gram Stain - Final 07/11/21 15:25 Sputum, Induced/Lukens Respiratory Culture - Final Coag Negative Staph 07/06/21 11:20 Sputum, Induced/Lukens Gram Stain - Final 07/06/21 11:20 Sputum, Induced/Lukens Respiratory Culture - Final Culture exhibits no growth. 06/28/21 12:01 Blood Culture (Wb) - Right Hand Blood Culture - Final No growth in 5 days. 06/28/21 11:52 Blood Culture (Wb) - Left Hand Blood Culture - Final No growth in 5 days. 06/26/21 20:35 Urine, Clean Catch Streptococcus pneumoniae Antigen (M - Final 06/26/21 20:35 Urine, Clean Catch Legionella Antigen - Final 06/28/21 16:50 Mucosa - Nasopharyngeal Influenza Types A,B Direct FA (BENNY) - Final Influenzae B 06/26/21 20:35 Urine, Clean Catch Urine Culture - Final Escherichia coli Physical Exam Const Constitutional Narrative: Obese white female lying in bed, intubated and sedated General Appearance: intubated and patient mechanically ventilated Exam Limitations: no limitations Nutritional Appearance: morbidly obese HEENT normocephalic, head/scalp atraumatic and moist oral mucous membranes HEENT Narrative: ET tube in place Head and Scalp: normocephalic Neck Neck Narrative: Right IJ dialysis catheter in place Resp normal respiratory effort, no retractions and no use of accessory muscles Resp Narrative: Diffusely diminished breath sounds but no adventitious sounds noted, tachypnea noted Auscultation: diminished lung sounds; Negative for crackles, rales, rhonchi or wheezes Cardio regular rate, regular rhythm, S1 normal heart sound, S2 normal heart sound, no murmurs, no rub, no gallops, no clicks and no JVD GI normal to inspection, nondistended, normoactive bowel sounds, soft to palpation and non-distended; Negative for hepatosplenomegaly Extremity normal to inspection Extremity Narrative: No cyanosis or clubbing, trace edema Peripheral Pulses: Yes pulses 2+ throughout Skin no rashes or lesions noted Neuro Neuro Narrative: Intubated and sedated Sensorium / Orientation: sedated on vent Psych Psych Narrative: Patient is tearful and appears scared Appearance: intubated Assessment & Plan Assessment/Plan (1) Acute respiratory failure with hypoxia: (2) Influenza B: (3) COVID-19: (4) OPAL (acute kidney injury): (5) Shock: PLAN: Acute hypoxic respiratory failure secondary to influenza B and COVID- 19/superimposed bacterial pneumonia -Patient required intubation on 07/06/2021 -Had been on BiPAP for 48 continuous straight hours with worsening oxygenation -Intubated 07/06/2021--> vent day 14 -Remains on ventilator at an FiO2 of 65% with a PEEP of 14--> SPO2 91 to 97% -Possible trach and PEG next week -Had been sick for approximately 3 weeks prior to admission -Was vaccinated and boosted however was immunocompromised with CellCept, tacroli mus, and prednisone -Not a baricitinib candidate secondary to liver transplant -Decadron completed -Tamiflu completed -Continue prophylactic Lovenox -Pulmonary medicine following-appreciate input -ID following-appreciate input Distributive shock -Suspect multifactorial -Levophed has been weaned to 1 mcg/min -Wean as able but maintain MAP equal or greater to 65 mmHg -Urine culture showed noncandidal yeast growth and fluconazole has been initiated--> renally dosed -Further studies are pending -Sputum culture shows coag negative staph -Patient remains on broad-spectrum antibiotics -Stress dose steroids were initiated yesterday at 50 every 8 -Infectious diseases following -? Add antifungal -C. difficile was negative OPAL on CKD stage IIIa secondary to ischemic ATN -Dialysis was initiated on 07/08/2021 -Last HD was 07/15/2021 -Currently on pressors and suspect patient will not tolerate volume removal all that well -HD Tuesday -Nephrology is following and appreciate input Autoimmune hepatitis status post liver transplant -Patient remains on outpatient immunosuppression except for CellCept which is on hold per guidance services coordinator recommendations -Tacrolimus level was 3.7 and dose remains continued -Will need outpatient follow-up if patient survives acute hospitalization -Continue home rifaximin/lactulose via OG -Continue home Bactrim for PCP prophylaxis via OG -Continue home ursodiol Acute normocytic anemia -Suspect related to critical illness -Hemoccult was positive -Hemoglobin down to 6.9 today -Blood transfusion ordered -PPI increased to 40 mg twice daily -Chemical DVT prophylaxis discontinued History of asthma -As per above Hypothyroidism -Continue home Synthroid GERD -Continue IV Protonix 40 mg daily Hyperlipidemia -Continue home statin Obesity -BMI is 38.8 -Complicates treatment, prognosis, outcomes, -Recommend weight loss DVT prophylaxis -Continue Lovenox 30 mg subcu daily CODE STATUS -Full code -Overall prognosis is likely poor given comorbidities and current status Charges/Coding Visit Charges Inpatient E&M: 41833 Subs Hosp L2
--- NOTE | 2021-07-19 12:38 | PCM.PN.REN ---
Subjective Subjective Following for dialysis dependent OPAL. The patient remains intubated and sedated in the ICU. No significant changes overnight per RN. She is down to 1 mcg/min on IV norepinephrine. Objective Data Objective Data Vital Signs: Vital Signs Temp Pulse Resp BP Pulse Ox 96.8 F L 84 18 103/58 L 93 07/19/21 12:00 07/19/21 12:00 07/19/21 12:00 07/19/21 12:00 07/19/21 12:00 Oxygen Flow Rate (L/min) [ 3 AMBULATING with Oxygen #1] Oxygen Flow Rate (L/min) 100 Oxygen Delivery Method Mechanical Ventilator Weight: 107.9 kg Body Mass Index (BMI) 40.8 Intake & Output: Intake and Output for Last 24 Hours 07/17/21 07/18/21 07/19/21 23:59 23:59 23:59 Intake Total 3887.99 / 3982.21 3832.55 / 4293.70 2255.06 / 2255.06 Output Total 2200 / 2210 85 / 1165 1210 / 1210 Balance 1687.99 / 1772.21 3747.55 / 3128.70 1045.06 / 1045.06 Lab / Micro Data Result Diagrams: 07/19/21 04:10 07/19/21 04:10 Labs: Laboratory Results - last 24 hr 07/18/21 07:30: Crossmatch See Detail 07/19/21 04:10: WBC 9.2, RBC 2.43 L, Hgb 6.9 L, Hct 21.8 L, MCV 89.7, MCH 28.4, MCHC 31.7 L, RDW Std Deviation 48.4 H, RDW Coeff of Tyrell 15.4 H, Plt Count 158, MPV 9.6, Neut % (Auto) Not Reportable, Absolute Neuts (auto) 8.1 H, Absolute Lymphs (auto) 0.37 L, Total Counted 100, Neutrophils % (Manual) 88 H, Lymphocytes % (Manual) 4 L, Monocytes % (Manual) 7, Myelocytes % 1 H, Diff Path Review October, Platelet Estimate ADEQUATE, RBC Morphology NORM C+C 07/19/21 04:10: Sodium 128 L, Potassium 5.1, Chloride 94 L, Carbon Dioxide 23.0, Anion Gap 11, BUN 101 H*, Creatinine 3.66 H, Estim Creat Clear Calc 13.01, Est GFR (MDRD) Af Amer 16 L, Est GFR (MDRD) Non-Af 13 L, BUN/Creatinine Ratio 27.6 H, Glucose 237 H, Calcium 7.9 L, Total Bilirubin 0.30, AST 15, ALT 16, Alkaline Phosphatase 77, Total Protein 5.6 L, Albumin 2.0 L, Globulin 3.6, Albumin/Globulin Ratio 0.6 L Micro: Microbiology 07/18/21 11:20 Stool C. difficile DNA Amplification - Final 07/18/21 11:20 Stool Stool Occult Blood (ROSEMARIE) - Final Occult Blood Positive 07/11/21 15:00 Blood Culture (Wb) - Right Wrist Blood Culture - Final No growth in 5 days. 07/11/21 15:15 Blood Culture (Wb) - Right Hand Blood Culture - Final No growth in 5 days. 07/11/21 15:00 Urine Catheter - Richardson Urine Culture - Final Yeast, not Rosio albicans 07/11/21 15:25 Sputum, Induced/Lukens Gram Stain - Final 07/11/21 15:25 Sputum, Induced/Lukens Respiratory Culture - Final Coag Negative Staph 07/06/21 11:20 Sputum, Induced/Lukens Gram Stain - Final 07/06/21 11:20 Sputum, Induced/Lukens Respiratory Culture - Final Culture exhibits no growth. 06/28/21 12:01 Blood Culture (Wb) - Right Hand Blood Culture - Final No growth in 5 days. 06/28/21 11:52 Blood Culture (Wb) - Left Hand Blood Culture - Final No growth in 5 days. 06/26/21 20:35 Urine, Clean Catch Streptococcus pneumoniae Antigen (M - Final 06/26/21 20:35 Urine, Clean Catch Legionella Antigen - Final 06/28/21 16:50 Mucosa - Nasopharyngeal Influenza Types A,B Direct FA (ROSEMARIE) - Final Influenzae B 06/26/21 20:35 Urine, Clean Catch Urine Culture - Final Escherichia coli Physical Exam Narrative General:On ventilator, sedated HEENT: Intubated. CV: Normal S1/S2. No R/M/G. Lungs: Coarse BS BL. Abdomen: Soft, no tenderness on palpation. No G/R. Extremities: No edema, no cyanosis Assessment & Plan Assessment/Plan (1) OPAL (acute kidney injury): PLAN: -OPAL is likely due to ischemic ATN related to sepsis. The patient remains oliguric -Dialysis was initiated on 07/08/2021. -On MWF dialysis schedule. -No need for HD today. -Next dialysis will be tomorrow on 07/20/2021. -Hopefully, we can get more fluid off with dialysis now that her vasopressor requirement has come down. (2) Chronic kidney disease, stage 3a: PLAN: -Baseline serum creatinine is 1.4 mg/dL. (3) Immunosuppressed status: PLAN: -The patient is status post orthotopic liver transplantation. -On tacrolimus, mycophenolate, and prednisone. Mycophenolate is on hold as per transplant team recommendation due to COVID-19 infection. -The patient is also being followed by GI. (4) Acute respiratory failure with hypoxia: PLAN: -The patient is ventilator dependent. -She has finished treatment course for COVID-19 and influenza B. She is on empiric antibiotic as per automatic grinder operator due to recent fever. -UF as possible with HD (limited by low BP).
[2021-07-19] MEDS: Dexmedetomidine 1,000 mcg in 0.9% NS 240 mL 32.4 MCG CONT INF ×2 (14:03→20:53)
[2021-07-19] MEDS: Senna/Docusate Sodium 1 Tablet GT (21:22)
[2021-07-19] MEDS: Atorvastatin Calcium 10 MG Tablet GT (21:24)
[2021-07-20] VITALS (50 sets, daily range): BP systolic 85–129; BP diastolic 49–106; PULSE 55–96; RESP 14–27; TEMP 35.5–37; O2SAT 88–97
[2021-07-20] MEDS: Hydrocortisone Sod Succinate 100 MG/2 ML Vial 50 MG IV ×4 (01:07→17:25)
[2021-07-20] MEDS: Dexmedetomidine 1,000 mcg in 0.9% NS 240 mL 32.4 MCG CONT INF (04:36)
[2021-07-20 05:02] LABS: Hematocrit 27.1 % (37-47); Hemoglobin 8.8 g/dL (12.0-15.0); Mean Corp Hgb Conc 32.5 g/dL (32-36); Mean Corpuscular Hgb 28.5 pg (27.0-32.0); Mean Corpuscular Volume 87.7 fL (81-99); Mean Platelet Vol. 9.8 fl (6.2-12.0); POSITIVE COUNT YES; POSITIVE DIFFERENTIAL YES; POSITIVE MORPHOLOGY YES; Platelet Count 153 K/mm3 (150-450); RBC Distribution Width CV 16.4 % (11.6-14.6); RBC Distribution Width SD 51.4 fl (35.1-43.9); Red Blood Count 3.09 M/mm3 (4.2-5.4); White Blood Count 10.4 K/mm3 (4.4-11.0)
[2021-07-20 05:04] LABS: Differential Indicated MANUAL DIFF
[2021-07-20 05:19] LABS: Vancomycin, Random Level 13.3 ug/mL (0.0-15.0)
[2021-07-20 05:41] LABS: Lymphocyte 2 % (19-41); Metamyelocyte 2 % (0-1); Monocyte 5 % (0-10); Neutrophil-Segmented 91 % (47-70); Total Cells Counted 100 (MANUAL DIFF)
[2021-07-20 05:43] LABS: Absolute Lymphocyte Count 0.21 X10^3/uL (0.83-4.51); Absolute Neutrophil Count 9.6 X10^3/uL (2.0-7.7); Lymphocyte # 0.21 X10^3/ul (0.83-4.51); Neutrophil # 9.63 X10^3/uL (2.7-7.7)
[2021-07-20 05:44] LABS: Polychromasia 1+
[2021-07-20 05:45] LABS: Platelet Estimate ADEQUATE (ADEQ)
[2021-07-20 06:03] LABS: ALB/GLOB Ratio 0.6 RATIO (0.9-2.4); AST(SGOT) 14 U/L (15-37); Alanine Aminotransfer ALT/SGPT 15 U/L (13-56); Alkaline Phosphatase 97 U/L (45-117); Anion Gap 13 (5-15); BUN 121 mg/dL (7-18); BUN/Creat Ratio 32.4 RATIO (10-20); Calcium,Total 8.1 mg/dL (8.5-10.1); Chloride 96 mmol/L (98-107); Creatinine, Serum 3.74 mg/dL (0.55-1.02); EST Glomerular Filtration Rate 13 mL/min (>60); Est Glom Filt Rate - Afr Amer 16 mL/min (>60); Estimated Creatinine Clearance 12.74 ml/min; Globulin 3.5 g/dL (2.2-4.2); Glucose 193 mg/dL (74-106); Potassium 4.9 mmol/L (3.5-5.1); Protein, Total 5.5 g/dL (6.4-8.2); Sodium Level 129 mmol/L (136-145)
--- NOTE | 2021-07-20 06:57 | PN.CC_ITS ---
Assessment & Plan Assessment/Plan (1) COVID-19: (2) Influenza B: PLAN: RECOMMENDATIONS: 1. Continue mechanical ventilation and wean FiO2 for saturations greater than 90%. 2. Continue antimicrobials and empiric antifungal coverage per infectious disease. 3. Ongoing hemodialysis with volume removal, per nephrology recommendations. 4. Continue SCDs for DVT prophylaxis in light of possible GI blood loss. 5. Increase Protonix to twice daily. 6. Continue stress dose steroids as ordered for another 24 to 48 hours. 7. Continue to monitor H&H and transfuse as necessary 8. Potentially resume vasopressor support to maintain a mean arterial pressure at or above 65 mmHg. IMPRESSIONS: 1. Acute hypoxemic respiratory failure secondary to COVID-19/influenza B The patient was initially admitted to the hospital on June 27 and subsequently tested positive for both COVID-19 and influenza. The patient is vaccinated at her baseline. However, she is immunosuppressed due to a history of a liver transplant. The patient's oxygenation status progressively worsened over the course of her hospitalization, ultimately culminating in intubation on July 06. She has completed a treatment course of Tamiflu. She has been c ontinued on Decadron and prophylactic Lovenox. Infectious disease is following. Patient has been placed on empiric antibiotics and antifungals. Continue to wean FiO2 to maintain saturations at or above 90%. Ongoing volume optimization through hemodialysis per nephrology recommendations. The patient's family is agreeable to tracheostomy, if clinically indicated. We will continue to wean PEEP as tolerated. Patient likely will require a tracheostomy 2. Distributive shock Likely multifactorial with underlying infection and hemodynamic effects of sedative medication use contributing. Continue vasopressor support as ordered to maintain a mean arterial pressure at or above 65 mmHg. Continue stress dose steroids and wean as tolerated. Anticipate holding stress dose at current levels until off of pressors and able to tolerate hemodialysis. 3. Acute kidney injury Likely secondary to ischemic ATN in the setting of #1. Nephrology is currently following to assist with hemodialysis needs and volume removal. 4. Chronic baseline immunosuppressed state secondary to liver transplantation Continue baseline outpatient immunosuppressive regimen, with the exception of CellCept. Liver function profile remains within normal limits. Tacrolimus levels were within therapeutic limits. GI is following 5. Anemia Likely secondary to GI blood loss. Stool for occult blood was positive. Patient with good response to blood transfusions. Check H&H daily. Increased dosing frequency of Protonix to twice daily. 6. Morbid obesity/asthma/hypothyroidism/hyperlipidemia/GERD Complicates care, management, recovery and prognosis. Continue home medications as indicated. Poor overall prognosis. Addendum 3:49 PM: Spoke with POHillary by phone. Updated on the current condition. She had asked for a brain scan to see what was going on. Discussed the various options including CT, MRI and EEG and what the potential contribution to overall status would be. After review of all the options, patient's family understands that the only way to get there questions answered is to decrease the sedation with them at the bedside. This has been arranged for 1230 tomorrow. Anticipate patient will be made comfort care only if this does not go well. Family is stating at this time that they do not want to proceed with a trach and PEG, so these plans will be delayed. TIME: 78 minutes of critical care time, independent of procedures, was spent addressing the patient's acute hypoxemic respiratory failure secondary to COVID- 19/influenza B, distributive shock, acute kidney injury, anemia, review of all data and collaboration with the care team. Subjective Subjective Patient did not receive hemodialysis yesterday. Patient did receive 2 units of packed red blood cells secondary to anemia and Levophed is currently on hold. Nursing is reporting patient may receive a PEG tube today. Timing for tracheostomy has not been determined. Patient was able to have PEEP weaned this morning. Objective Data Objective Data Vital Signs: Vital Signs Temp Pulse Resp BP Pulse Ox 36.0 C L 57 L 17 92/59 L 95 07/20/21 06:00 07/20/21 06:00 07/20/21 06:33 07/20/21 06:00 07/20/21 06:33 Oxygen Flow Rate (L/min) [ 3 AMBULATING with Oxygen #1] Oxygen Flow Rate (L/min) 100 Oxygen Delivery Method Mechanical Ventilator Weight: 110.7 kg Body Mass Index (BMI) 40.8 Intake & Output: Intake and Output for Last 24 Hours 07/18/21 07/19/21 07/20/21 23:59 23:59 23:59 Intake Total 3832.55 / 4293.70 4321.34 / 4500.64 735.95 / 735.95 Output Total 85 / 1165 1395 / 1395 70 / 70 Balance 3747.55 / 3128.70 2926.34 / 3105.64 665.95 / 665.95 Lab / Micro Data Result Diagrams: 07/20/21 04:55 07/20/21 04:55 Labs: Laboratory Results - last 24 hr 07/18/21 07:30: Crossmatch See Detail 07/20/21 04:55: WBC 10.4, RBC 3.09 L, Hgb 8.8 L, Hct 27.1 L, MCV 87.7, MCH 28.5, MCHC 32.5, RDW Std Deviation 51.4 H, RDW Coeff of Tyrell 16.4 H, Plt Count 153, MPV 9.8, Neut % (Auto) Not Reportable, Absolute Neuts (auto) 9.6 H, Absolute Lymphs (auto) 0.21 L, Total Counted 100, Neutrophils % (Manual) 91 H, Lymphocytes % (Manual) 2 L, Monocytes % (Manual) 5, Metamyelocytes % 2 H, Diff Path Review October, Platelet Estimate ADEQUATE, Polychromasia 1+ 07/20/21 04:55: Sodium 129 L, Potassium 4.9, Chloride 96 L, Carbon Dioxide 20.0 L, Anion Gap 13, BUN 121 H*, Creatinine 3.74 H, Estim Creat Clear Calc 12.74, Est GFR (MDRD) Af Amer 16 L, Est GFR (MDRD) Non-Af 13 L, BUN/Creatinine Ratio 32.4 H, Glucose 193 H, Calcium 8.1 L, Total Bilirubin 0.40, AST 14 L, ALT 15, Alkaline Phosphatase 97, Total Protein 5.5 L, Albumin 2.0 L, Globulin 3.5, Albumin/Globulin Ratio 0.6 L 07/20/21 04:55: Random Vancomycin 13.3 Micro: Microbiology 07/18/21 11:20 Stool C. difficile DNA Amplification - Final 07/18/21 11:20 Stool Stool Occult Blood (ROSEMARIE) - Final Occult Blood Positive 07/11/21 15:00 Blood Culture (Wb) - Right Wrist Blood Culture - Final No growth in 5 days. 07/11/21 15:15 Blood Culture (Wb) - Right Hand Blood Culture - Final No growth in 5 days. 07/11/21 15:00 Urine Catheter - Richardson Urine Culture - Final Yeast, not Rosio albicans 07/11/21 15:25 Sputum, Induced/Lukens Gram Stain - Final 07/11/21 15:25 Sputum, Induced/Lukens Respiratory Culture - Final Coag Negative Staph 07/06/21 11:20 Sputum, Induced/Lukens Gram Stain - Final 07/06/21 11:20 Sputum, Induced/Lukens Respiratory Culture - Final Culture exhibits no growth. 06/28/21 12:01 Blood Culture (Wb) - Right Hand Blood Culture - Final No growth in 5 days. 06/28/21 11:52 Blood Culture (Wb) - Left Hand Blood Culture - Final No growth in 5 days. 06/26/21 20:35 Urine, Clean Catch Streptococcus pneumoniae Antigen (M - Final 06/26/21 20:35 Urine, Clean Catch Legionella Antigen - Final 06/28/21 16:50 Mucosa - Nasopharyngeal Influenza Types A,B Direct FA (ROSEMARIE) - Final Influenzae B 06/26/21 20:35 Urine, Clean Catch Urine Culture - Final Escherichia coli Physical Exam Const Constitutional Narrative: Intubated, sedated and mechanically ventilated. No ventilator dyssynchrony. Anasarca noted. Nutritional Appearance: morbidly obese HEENT normocephalic and head/scalp atraumatic Mouth: endotracheal tube in place and OG tube in place Eyes PERRL and EOMs intact bilaterally Neck supple General: trachea midline and CVC in place Chest inspection of chest normal Resp Effort and Inspection: tachypneic Auscultation: diminished lung sounds; Negative for rales, rhonchi or wheezes Cardio regular rate, regular rhythm, S1 normal heart sound and S2 normal heart sound Heart Sounds: murmur GI normal to inspection, nondistended, normoactive bowel sounds Extremity no clubbing, cyanosis or edema Skin no rashes or lesions noted Neuro Sensorium / Orientation: sedated on vent Charges/Coding Procedures Hospitalists Procedures: 60813 Critial Care 1st Hr Multi Select Codes Hospitalists' Procedures Procedures: 06977 Critial Care Addl 30 Min
--- NOTE | 2021-07-20 07:25 | PCM.RX.CS ---
Consult Type of Consult: Follow-up Suspected Infection: Other - Empiric Labs: Sodium 129 mmol/L (136-145) L 07/20/21 04:55 Potassium 4.9 mmol/L (3.5-5.1) 07/20/21 04:55 Chloride 96 mmol/L (98-107) L 07/20/21 04:55 Carbon Dioxide 20.0 mmol/L (21.0-32.0) L 07/20/21 04:55 Anion Gap 13 (5-15) 07/20/21 04:55 BUN 121 mg/dL (7-18) H* 07/20/21 04:55 Creatinine 3.74 mg/dL (0.55-1.02) H 07/20/21 04:55 Est GFR (MDRD) Af Amer 16 mL/min (>60) L 07/20/21 04:55 Est GFR (MDRD) Non-Af 13 mL/min (>60) L 07/20/21 04:55 BUN/Creatinine Ratio 32.4 RATIO (10-20) H 07/20/21 04:55 Glucose 193 mg/dL (74-106) H 07/20/21 04:55 Vancomycin Trough 14.0 ug/mL (5.0-15.0) 07/07/21 11:30 Random Vancomycin 13.3 ug/mL (0.0-15.0) 07/20/21 04:55 Microbiology: Microbiology 07/18/21 11:20 Stool C. difficile DNA Amplification - Final 07/18/21 11:20 Stool Stool Occult Blood (ROSEMARIE) - Final Occult Blood Positive 07/11/21 15:00 Blood Culture (Wb) - Right Wrist Blood Culture - Final No growth in 5 days. 07/11/21 15:15 Blood Culture (Wb) - Right Hand Blood Culture - Final No growth in 5 days. 07/11/21 15:00 Urine Catheter - Richardson Urine Culture - Final Yeast, not Rosio albicans 07/11/21 15:25 Sputum, Induced/Lukens Gram Stain - Final 07/11/21 15:25 Sputum, Induced/Lukens Respiratory Culture - Final Coag Negative Staph 07/06/21 11:20 Sputum, Induced/Lukens Gram Stain - Final 07/06/21 11:20 Sputum, Induced/Lukens Respiratory Culture - Final Culture exhibits no growth. 06/28/21 12:01 Blood Culture (Wb) - Right Hand Blood Culture - Final No growth in 5 days. 06/28/21 11:52 Blood Culture (Wb) - Left Hand Blood Culture - Final No growth in 5 days. 06/26/21 20:35 Urine, Clean Catch Streptococcus pneumoniae Antigen (M - Final 06/26/21 20:35 Urine, Clean Catch Legionella Antigen - Final 06/28/21 16:50 Mucosa - Nasopharyngeal Influenza Types A,B Direct FA (ROSEMARIE) - Final Influenzae B 06/26/21 20:35 Urine, Clean Catch Urine Culture - Final Escherichia coli Goal Trough: 15-20 mcg/mL Pharmacy Plan for Drug Dosing: VANCOMYCIN LEVEL RECEIVED Current Vancomycin Dose: PER TROUGH Vancomycin Level: 13.3 Hours Since Last Dose: 61.5 Renal Function: sCr 3.74 Renal Function Trend: MWF HD Vancomycin Plan/Comments: Vancomycin 750mg x1 dose to be given after HD session today Pending Level: Random Vancomycin level 07/22/21 @ 0600, prior to next HD session Pharmacy Service will continue to monitor and adjust dosing as required. Labs to be done on [date and time ordered]: Random Vancomycin level @ 0600 07/22/21
--- NOTE | 2021-07-20 07:30 | CPS ---
peep decreased to [address] rhodes
--- NOTE | 2021-07-20 09:32 | PCM.PN.REN ---
Documented by User: ALCIDES Benavides 07/20/21 09:40 Subjective Subjective Following for OPAL. On Vent. Seen on HD, tolerating treatment. Objective Data Objective Data Vital Signs: Vital Signs Temp Pulse Resp BP Pulse Ox 96.8 F L 57 L 18 95/61 96 07/20/21 06:00 07/20/21 07:00 07/20/21 07:00 07/20/21 07:00 07/20/21 07:00 Oxygen Flow Rate (L/min) [ 3 AMBULATING with Oxygen #1] Oxygen Flow Rate (L/min) 100 Oxygen Delivery Method Mechanical Ventilator Weight: 110.7 kg Body Mass Index (BMI) 40.8 Intake & Output: Intake and Output for Last 24 Hours 07/18/21 07/19/21 07/20/21 23:59 23:59 23:59 Intake Total 3832.55 / 4293.70 4321.34 / 4500.64 778.35 / 778.35 Output Total 85 / 1165 1395 / 1395 70 / 70 Balance 3747.55 / 3128.70 2926.34 / 3105.64 708.35 / 708.35 Lab / Micro Data Result Diagrams: 07/21/21 04:10 07/21/21 04:10 Labs: Laboratory Results - last 24 hr 07/18/21 07:30: Crossmatch See Detail 07/20/21 04:55: WBC 10.4, RBC 3.09 L, Hgb 8.8 L, Hct 27.1 L, MCV 87.7, MCH 28.5, MCHC 32.5, RDW Std Deviation 51.4 H, RDW Coeff of Tyrell 16.4 H, Plt Count 153, MPV 9.8, Neut % (Auto) Not Reportable, Absolute Neuts (auto) 9.6 H, Absolute Lymphs (auto) 0.21 L, Total Counted 100, Neutrophils % (Manual) 91 H, Lymphocytes % (Manual) 2 L, Monocytes % (Manual) 5, Metamyelocytes % 2 H, Diff Path Review May , Platelet Estimate ADEQUATE, Polychromasia 1+ 07/20/21 04:55: Sodium 129 L, Potassium 4.9, Chloride 96 L, Carbon Dioxide 20.0 L, Anion Gap 13, BUN 121 H*, Creatinine 3.74 H, Estim Creat Clear Calc 12.74, Est GFR (MDRD) Af Amer 16 L, Est GFR (MDRD) Non-Af 13 L, BUN/Creatinine Ratio 32.4 H, Glucose 193 H, Calcium 8.1 L, Total Bilirubin 0.40, AST 14 L, ALT 15, Alkaline Phosphatase 97, Total Protein 5.5 L, Albumin 2.0 L, Globulin 3.5, Albumin/Globulin Ratio 0.6 L 07/20/21 04:55: Random Vancomycin 13.3 Micro: Microbiology 07/18/21 11:20 Stool C. difficile DNA Amplification - Final 07/18/21 11:20 Stool Stool Occult Blood (ROSEMARIE) - Final Occult Blood Positive 07/11/21 15:00 Blood Culture (Wb) - Right Wrist Blood Culture - Final No growth in 5 days. 07/11/21 15:15 Blood Culture (Wb) - Right Hand Blood Culture - Final No growth in 5 days. 07/11/21 15:00 Urine Catheter - Richardson Urine Culture - Final Yeast, not Rosio albicans 07/11/21 15:25 Sputum, Induced/Lukens Gram Stain - Final 07/11/21 15:25 Sputum, Induced/Lukens Respiratory Culture - Final Coag Negative Staph 07/06/21 11:20 Sputum, Induced/Lukens Gram Stain - Final 07/06/21 11:20 Sputum, Induced/Lukens Respiratory Culture - Final Culture exhibits no growth. 06/28/21 12:01 Blood Culture (Wb) - Right Hand Blood Culture - Final No growth in 5 days. 06/28/21 11:52 Blood Culture (Wb) - Left Hand Blood Culture - Final No growth in 5 days. 06/26/21 20:35 Urine, Clean Catch Streptococcus pneumoniae Antigen (M - Final 06/26/21 20:35 Urine, Clean Catch Legionella Antigen - Final 06/28/21 16:50 Mucosa - Nasopharyngeal Influenza Types A,B Direct FA (ROSEMARIE) - Final Influenzae B 06/26/21 20:35 Urine, Clean Catch Urine Culture - Final Escherichia coli Physical Exam Narrative General:On ventilator, sedated HEENT: Intubated. CV: Normal S1/S2. No R/M/G. Lungs: Coarse BS BL. Abdomen: Soft Extremities: No edema, no cyanosis Assessment & Plan Assessment/Plan (1) OPAL (acute kidney injury): PLAN: -OPAL is likely due to ischemic ATN related to sepsis. The patient remains oliguric -Dialysis was initiated on 07/08/2021. -On MWF dialysis schedule. -No noted renal recovery, SCr 3.74mg/dL, Bun 121. Hgb dropped 6.9 and required PRBC. Now on PPI gtt. UOP 70ml today. Dialysis today over 3.5 hours/2k bath and attempt fluid removal as patient and bp tolerate. Fluid removal limited due to hypotension. On levophed (2) Chronic kidney disease, stage 3a: PLAN: -Baseline serum creatinine is 1.4 mg/dL. (3) Immunosuppressed status: PLAN: -The patient is status post orthotopic liver transplantation. -On tacrolimus, mycophenolate, and prednisone. Mycophenolate is on hold as per transplant team recommendation due to COVID-19 infection. -The patient is also being followed by GI. (4) Acute respiratory failure with hypoxia: PLAN: -The patient is ventilator dependent. Possible peg/trach in next coming days. -She has finished treatment course for COVID-19 and influenza B. She is on empiric antibiotic as per policy service coordinator due to recent fever. -UF as possible with HD (limited by low BP). Documented by User: Dr. Conner Garcia MD 07/21/21 18:24 Objective Data Lab / Micro Data Result Diagrams: 07/21/21 04:10 07/21/21 04:10
[2021-07-20] MEDS: Chlorhexidine 15 ML PO ×2 (12:05→21:52)
[2021-07-20] MEDS: CHLORHEXIDINE GLUC 2% CLOTH 1 EACH TOWELETTE TOPICAL (12:06)
--- NOTE | 2021-07-20 12:13 | PN.ID_ITS ---
Physical Exam Narrative On vent, no fever overnight Const no apparent distress Resp Auscultation: rhonchi Cardio regular rate and regular rhythm GI non-tender and non-distended Skin no rashes or lesions noted ID ID: Route of nutrition/ use of supplements: [] Nutritional Intake: [] IV Site: [] Richardson Catheter: [] Assessment & Plan Assessment/Plan (1) CKD (chronic kidney disease) stage 3, GFR 30-59 ml/min: (2) Liver transplant recipient: (3) Hypoxia: (4) COVID-19: PLAN: Sick for approximately 3 weeks prior to admit. Covid vaccine x3. A lso flu B Ag (+). On cellcept, tacro, pred, bactrim at home with h/o liver transplant. Not candidate for baricitinib due to liver transplant. On dex here and completed empiric course of cefepime. Ucx with ecoli, 80-100k. Completed 5 days of tamiflu for flu coverage. Remains intubated. Worsening OPAL, now on HD. New fevers, started on empiric vanc/eli 07/12. O2 slowly improving. Sputum with some CoNS. Added fluc 07/19. Wbc now normal, FiO2 60%. Will follow (5) Influenza B:
--- NOTE | 2021-07-20 12:13 | DIALYSIS ---
1130-HD x 3.5 hours complete. Tolerated tx well. Ran on 2k bath. UF of 1000ml. Used temporary right IJ dialysis catheter. Lumens closed with heparin per fill volume. Caps placed. Dressing is dry and intact. Report was given to EDWARD Parsons.
[2021-07-20] MEDS: Dexmedetomidine 1,000 mcg in 0.9% NS 240 mL 40.5 MCG CONT INF ×2 (12:17→18:56)
[2021-07-20] MEDS: Smz/Tmp Ds Tablet 1 TABLET GT (12:34)
[2021-07-20] MEDS: Cholecalciferol (VIT D3) 25 MCG TABLET (1,000 UNITS) 50 MCG GT (12:34)
[2021-07-20] MEDS: Ferrous Gluconate 324 MG Tablet PO (12:34)
[2021-07-20] MEDS: rifAXIMin 550 MG Tablet GT ×2 (12:34→21:59)
[2021-07-20] MEDS: Calcium (Elemental) 500 MG Tablet GT ×2 (12:34→21:58)
[2021-07-20] MEDS: Levothyroxine 88 MCG Tablet GT (12:34)
[2021-07-20] MEDS: Menthol/Lanolin/Calamine/Znox 113 GM Tube 1 APPLIC TOPICAL ×2 (12:35→21:50)
[2021-07-20] MEDS: Lactulose 20 GM/30 ML UDC GT (12:35)
[2021-07-20] MEDS: Tacrolimus Anhydrous 1 MG Capsule 2 MG GT ×2 (12:35→21:59)
[2021-07-20] MEDS: Aspirin 81 MG TAB.CHEW GT (12:35)
[2021-07-20] MEDS: Ursodiol 250 MG Tablet GT ×2 (12:36→21:59)
[2021-07-20] MEDS: QUEtiapine 100 MG Tablet PO ×2 (12:36→21:59)
--- NOTE | 2021-07-20 12:54 | PN.HOSP_ITS ---
Subjective Subjective Patient remains intubated and on a ventilator. FiO2 has been reduced to 55% and PEEP has been reduced to 12. Her oxygen saturations seem to be more stable. We have been able to discontinue the Levophed at this time. Objective Data Objective Data Vital Signs: Vital Signs Temp Pulse Resp BP Pulse Ox 97.5 F L 68 16 100/54 L 91 07/20/21 12:00 07/20/21 12:00 07/20/21 12:00 07/20/21 12:00 07/20/21 12:00 Oxygen Flow Rate (L/min) [ 3 AMBULATING with Oxygen #1] Oxygen Flow Rate (L/min) 100 Oxygen Delivery Method Mechanical Ventilator Weight: 110.7 kg Body Mass Index (BMI) 40.8 Intake & Output: Intake and Output for Last 24 Hours 07/18/21 07/19/21 07/20/21 23:59 23:59 23:59 Intake Total 3832.55 / 4293.70 4321.34 / 4500.64 1205.51 / 1205.51 Output Total 85 / 1165 1395 / 1395 70 / 70 Balance 3747.55 / 3128.70 2926.34 / 3105.64 1135.51 / 1135.51 Lab / Micro Data Result Diagrams: 07/20/21 04:55 07/20/21 04:55 Labs: Laboratory Results - last 24 hr 07/18/21 07:30: Crossmatch See Detail 07/20/21 04:55: WBC 10.4, RBC 3.09 L, Hgb 8.8 L, Hct 27.1 L, MCV 87.7, MCH 28.5, MCHC 32.5, RDW Std Deviation 51.4 H, RDW Coeff of Tyrell 16.4 H, Plt Count 153, MPV 9.8, Neut % (Auto) Not Reportable, Absolute Neuts (auto) 9.6 H, Absolute Lymphs (auto) 0.21 L, Total Counted 100, Neutrophils % (Manual) 91 H, Lymphocytes % ( Manual) 2 L, Monocytes % (Manual) 5, Metamyelocytes % 2 H, Diff Path Review October, Platelet Estimate ADEQUATE, Polychromasia 1+ 07/20/21 04:55: Sodium 129 L, Potassium 4.9, Chloride 96 L, Carbon Dioxide 20.0 L, Anion Gap 13, BUN 121 H*, Creatinine 3.74 H, Estim Creat Clear Calc 12.74, Est GFR (MDRD) Af Amer 16 L, Est GFR (MDRD) Non-Af 13 L, BUN/Creatinine Ratio 32.4 H, Glucose 193 H, Calcium 8.1 L, Total Bilirubin 0.40, AST 14 L, ALT 15, Alkaline Phosphatase 97, Total Protein 5.5 L, Albumin 2.0 L, Globulin 3.5, Albumin/Globulin Ratio 0.6 L 07/20/21 04:55: Random Vancomycin 13.3 Micro: Microbiology 07/18/21 11:20 Stool C. difficile DNA Amplification - Final 07/18/21 11:20 Stool Stool Occult Blood (ROSEMARIE) - Final Occult Blood Positive 07/11/21 15:00 Blood Culture (Wb) - Right Wrist Blood Culture - Final No growth in 5 days. 07/11/21 15:15 Blood Culture (Wb) - Right Hand Blood Culture - Final No growth in 5 days. 07/11/21 15:00 Urine Catheter - Richardson Urine Culture - Final Yeast, not Rosio albicans 07/11/21 15:25 Sputum, Induced/Lukens Gram Stain - Final 07/11/21 15:25 Sputum, Induced/Lukens Respiratory Culture - Final Coag Negative Staph 07/06/21 11:20 Sputum, Induced/Lukens Gram Stain - Final 07/06/21 11:20 Sputum, Induced/Lukens Respiratory Culture - Final Culture exhibits no growth. 06/28/21 12:01 Blood Culture (Wb) - Right Hand Blood Culture - Final No growth in 5 days. 06/28/21 11:52 Blood Culture (Wb) - Left Hand Blood Culture - Final No growth in 5 days. 06/26/21 20:35 Urine, Clean Catch Streptococcus pneumoniae Antigen (M - Fin al 06/26/21 20:35 Urine, Clean Catch Legionella Antigen - Final 06/28/21 16:50 Mucosa - Nasopharyngeal Influenza Types A,B Direct FA (RO[facility]IE) - Final Influenzae B 06/26/21 20:35 Urine, Clean Catch Urine Culture - Final Escherichia coli Physical Exam Const alert and oriented x3 Constitutional Narrative: Obese white female lying in bed, intubated and sedated, dialysis nurse at bedside and patient is currently starting dialysis for today General Appearance: intubated and patient mechanically ventilated Exam Limitations: no limitations Nutritional Appearance: morbidly obese HEENT normocephalic, head/scalp atraumatic and moist oral mucous membranes HEENT Narrative: ET tube is in place Head and Scalp: normocephalic Eyes Eyes Narrative: No scleral icterus Neck Neck Narrative: Right IJ dialysis catheter in place-clean and dry Resp normal respiratory effort, no retractions and no use of accessory muscles Resp Narrative: Diffusely diminished breath sounds but no adventitious sounds noted, tachypnea noted Auscultation: diminished lung sounds; Negative for crackles, rales, rhonchi or wheezes Cardio regular rate, regular rhythm, S1 normal heart sound, S2 normal heart sound, no murmurs, no rub, no gallops, no clicks and no JVD GI normal to inspection, nondistended, normoactive bowel sounds, soft to palpation and non-distended; Negative for hepatosplenomegaly Extremity Extremity Narrative: No cyanosis or clubbing, trace edema Peripheral Pulses: Yes pulses 2+ throughout Skin no rashes or lesions noted Neuro Neuro Narrative: Intubated and sedated Sensorium / Orientation: sedated on vent Psych Appearance: intubated Assessment & Plan Assessment/Plan (1) Acute respiratory failure with hypoxia: (2) Influenza B: (3) COVID-19: (4) OPAL (acute kidney injury): (5) Shock: PLAN: Acute hypoxic respiratory failure secondary to influenza B and COVID- 19/superimposed bacterial pneumonia -Patient required intubation on 07/06/2021 -Had been on BiPAP for 48 continuous straight hours with worsening oxygenation -Intubated 07/06/2021--> vent day 15 -Remains on ventilator at an FiO2 of 55% with a PEEP of 12--> SPO2 96% -PEG planned for possibly later today -Trach later this week -Had been sick for approximately 3 weeks prior to admission -Was vaccinated and boosted however was immunocompromised with CellCept, tacrolimus, and prednisone -Not a baricitinib candidate secondary to liver transplant -Decadron completed -Tamiflu completed -Continue prophylactic Lovenox -Pulmonary medicine following-appreciate input -ID following-appreciate input Distributive shock -Suspect multifactorial -Patient is now off Levophed -Urine culture showed noncandidal yeast growth and fluconazole has been initiated--> renally dosed -Further studies are pending -Sputum culture shows coag negative staph -Patient remains on broad-spectrum antibiotics -Continue per ID -Continue stress dose steroids for now and slowly wean -Infectious diseases following -C. difficile was negative OPAL on CKD stage IIIa secondary to ischemic ATN -Dialysis was initiated on 07/08/2021 -Last HD was 07/15/2021 -Dialysis today and thus far is remaining off pressors however blood pressures are borderline soft -I did discuss with Dr. Fuentes the possible need for tunneled dialysis catheter with tentative trach and PEG this week and he states he will keep that in mind and have that placed at later this week maybe -HD Tuesday/Tuesday/Tuesday -Nephrology is following and appreciate input Autoimmune hepatitis status post liver transplant -Patient remains on outpatient immunosuppression except for CellCept which is on hold per mail service coordinator recommendations -Tacrolimus level was 3.7 and dose remains continued -Will need outpatient follow-up if patient survives acute hospitalization -Continue home rifaximin/lactulose via OG -Continue home Bactrim for PCP prophylaxis via OG -Continue home ursodiol Acute normocytic anemia -Suspect related to critical illness -Hemoccult was positive -Hemoglobin down to 8.8 today -Blood transfusion done yesterday 07/19 -PPI increased to 40 mg twice daily -Chemical DVT prophylaxis discontinued History of asthma -As per above Hypothyroidism -Continue home Synthroid GERD -Continue IV Protonix 40 mg daily Hyperlipidemia -Continue home statin Obesity -BMI is 38.8 -Complicates treatment, prognosis, outcomes, -Recommend weight loss DVT prophylaxis -Continue Lovenox 30 mg subcu daily CODE STATUS -Full code -Overall prognosis is likely poor given comorbidities and current status Charges/Coding Visit Charges Inpatient E&M: 78896 Subs Hosp L2
[2021-07-20] MEDS: Tacrolimus 0.5 MG Capsule GT ×2 (13:56→22:00)
[2021-07-20 14:04] LABS: Pathologist Review Reviewed
[2021-07-20 14:06] LABS: Pathologist Review Reviewed
--- NOTE | 2021-07-20 14:56 | CHAPLAIN ---
Type of Pastoral Visit ___ Initial Visit ___ Follow-up Visit ___ On-call Visit _x__ General Patient Visit ___ Spiritual Assessment ___ Family Conference ___ Bereavement ___ Rapid Response ___ Code Blue ___ Other (describe below) Pastoral Care Referral From ___ Patient ___ Family ___ Nurse _x__ Physician ___ Surgical Services Assistant ___ Die Polisher ___ Other (describe below) Sacrament/Intervention ___ Active listening ___ Anointing ___ Mormon ___ Bereavement ___ Communion ___ Nvuia exploration ___ ___ Life review _x__ Prayer ___ Reconciliation ___ Sacrament of Sick ___ Supportive presence ___ Wedding ___ Other (describe below) Pastoral Comments family will be arriving later today; DR will meet with family and plan of discontinuing lift support measures will probably occur yet this evening; prayer given at bedside for patient; no family present; calling card left on table
[2021-07-20] MEDS: Atorvastatin Calcium 10 MG Tablet GT (21:58)
[2021-07-21] VITALS (45 sets, daily range): BP systolic 84–135; BP diastolic 51–70; PULSE 50–72; RESP 13–27; TEMP 36.4–36.9; O2SAT 88–100
[2021-07-21] MEDS: Hydrocortisone Sod Succinate 100 MG/2 ML Vial 50 MG IV ×4 (00:59→18:29)
[2021-07-21] MEDS: Dexmedetomidine 1,000 mcg in 0.9% NS 240 mL 40.5 MCG CONT INF (01:00)
[2021-07-21 04:44] LABS: Hematocrit 27.3 % (37-47); Hemoglobin 8.9 g/dL (12.0-15.0); Mean Corp Hgb Conc 32.6 g/dL (32-36); Mean Corpuscular Hgb 28.6 pg (27.0-32.0); Mean Corpuscular Volume 87.8 fL (81-99); Mean Platelet Vol. 9.8 fl (6.2-12.0); POSITIVE COUNT YES; POSITIVE DIFFERENTIAL YES; POSITIVE MORPHOLOGY YES; Platelet Count 169 K/mm3 (150-450); RBC Distribution Width CV 16.8 % (11.6-14.6); RBC Distribution Width SD 50.6 fl (35.1-43.9); Red Blood Count 3.11 M/mm3 (4.2-5.4); White Blood Count 9.6 K/mm3 (4.4-11.0)
[2021-07-21 04:58] LABS: Anion Gap 11 (5-15); BUN 68 mg/dL (7-18); BUN/Creat Ratio 25.6 RATIO (10-20); Calcium,Total 7.9 mg/dL (8.5-10.1); Chloride 97 mmol/L (98-107); Creatinine, Serum 2.66 mg/dL (0.55-1.02); EST Glomerular Filtration Rate 19 mL/min (>60); Est Glom Filt Rate - Afr Amer 23 mL/min (>60); Estimated Creatinine Clearance 17.91 ml/min; Glucose 147 mg/dL (74-106); Potassium 3.8 mmol/L (3.5-5.1); Sodium Level 132 mmol/L (136-145)
[2021-07-21 05:03] LABS: Differential Indicated MANUAL DIFF
[2021-07-21] MEDS: TITRATION PARAMETER CHANGE 1 EACH IV (05:14)
[2021-07-21] MEDS: 0.9% Saline Lock 10 ML Syringe IV (05:15)
[2021-07-21] MEDS: CHLORHEXIDINE GLUC 2% CLOTH 1 EACH TOWELETTE TOPICAL (05:15)
[2021-07-21 05:55] LABS: Total Cells Counted 100 (MANUAL DIFF)
[2021-07-21 05:58] LABS: Eosinophil 1 % (0-5); Lymphocyte 3 % (19-41); Metamyelocyte 1 % (0-1); Monocyte 6 % (0-10); Myelocyte 2 % (0-0); Neutrophil-Band 1 % (0-5); Neutrophil-Segmented 86 % (47-70)
[2021-07-21 05:59] LABS: Platelet Estimate ADEQUATE (ADEQ)
[2021-07-21 06:00] LABS: Anisocytosis RARE; Microcytosis RARE
[2021-07-21 06:04] LABS: Absolute Lymphocyte Count 0.29 X10^3/uL (0.83-4.51); Absolute Neutrophil Count 8.4 X10^3/uL (2.0-7.7); Lymphocyte # 0.29 X10^3/ul (0.83-4.51); Neutrophil # 8.35 X10^3/uL (2.7-7.7)
[2021-07-21 06:15] LABS: Nucleated Red Bld Cells,Manual 3 % (0-5)
--- NOTE | 2021-07-21 07:04 | PCM.PN.INT ---
Assessment & Plan Assessment/Plan (1) COVID-19: (2) Influenza B: PLAN: RECOMMENDATIONS: 1. Continue mechanical ventilation and wean FiO2 for saturations greater than 90%. 2. Continue antimicrobials and empiric antifungal coverage per infectious disease. 3. Ongoing hemodialysis with volume removal, per nephrology recommendations. 4. Continue SCDs for DVT prophylaxis in light of possible GI blood loss. 5. Continue Protonix to twice daily. 6. Continue stress dose steroids as ordered 7. Await response of family meeting later today 8. Hold on trach and PEG assessment pending family meeting IMPRESSIONS: 1. Acute hypoxemic respiratory failure secondary to COVID-19/influenza B The patient was initially admitted to the hospital on June 27 and subsequently tested positive for both COVID-19 and influenza. The patient is vaccinated at her baseline. However, she is immunosuppressed due to a history of a liver transplant. The patient's oxygenation status progressively worsened over the course of her hospitalization, ultimately culminating in intubation on July 06. She has completed a treatment course of Tamiflu. She has been continued on Decadron and prophylactic Lovenox. Infectious disease is following. Patient has been placed on empiric antibiotics and antifungals. Continue to wean FiO2 to maintain saturations at or above 90%. Ongoing volume optimization through hemodialysis per nephrology recommendations. Long discussion with the patient's family yesterday. Patient reportedly is not going to receive a trach and PEG. Family would like to lighten sedation and communicate with the patient if possible. This is tentatively planned for 1230 today. We will hold off on trach and PEG for now. 2. Distributive shock Likely multifactorial with underlying infection and hemodynamic effects of sedative medication use contributing. Continue vasopressor support as ordered to maintain a mean arterial pressure at or above 65 mmHg. Continue stress dose steroids and wean as tolerated. Anticipate holding stress dose at current levels able to tolerate significant volume removal with hemodialysis. 3. Acute kidney injury Likely secondary to ischemic ATN in the setting of #1. Nephrology is currently following to assist with hemodialysis needs and volume removal. 4. Chronic baseline immunosuppressed state secondary to liver transplantation Continue baseline outpatient immunosuppressive regimen, with the exception of CellCept. Liver function profile remains within normal limits. Tacrolimus levels were within therapeutic limits. GI is following 5. Anemia Likely secondary to GI blood loss. Stool for occult blood was positive. Patient with good response to blood transfusions. Check H&H daily. Increased dosing frequency of Protonix to twice daily. 6. Morbid obesity/asthma/hypothyroidism/hyperlipidemia/GERD Complicates care, management, recovery and prognosis. Continue home medications as indicated. Poor overall prognosis. TIME: 40 minutes of critical care time, independent of procedures, was spent addressing the patient's acute hypoxemic respiratory failure secondary to COVID-19/influenza B, distributive shock, acute kidney injury, anemia, review of all data and collaboration with the care team. Subjective Subjective Patient did okay overnight. Patient did have hemodialysis yesterday with 1 L removed. Discussion with family. Anticipate family visiting around noon today with possible palliation. Patient reportedly was following some commands for nursing overnight during sedation holidays Objective Data Objective Data Vital Signs: Vital Signs Temp Pulse Resp BP Pulse Ox 36.6 C 53 L 21 H 95/55 L 92 07/21/21 06:00 07/21/21 06:00 07/21/21 06:00 07/21/21 06:00 07/21/21 06:00 Oxygen Flow Rate (L/min) [ 3 AMBULATING with Oxygen #1] Oxygen Flow Rate (L/min) 100 Oxygen Delivery Method Mechanical Ventilator Weight: 111.7 kg Body Mass Index (BMI) 40.8 Intake & Output: Intake and Output for Last 24 Hours 07/19/21 07/20/21 07/21/21 23:59 23:59 23:59 Intake Total 4321.34 / 4500.64 2475.86 / 2647.26 749.73 / 749.73 Output Total 1395 / 1395 1870 / 2260 600 / 600 Balance 2926.34 / 3105.64 605.86 / 387.26 149.73 / 149.73 Lab / Micro Data Result Diagrams: 07/21/21 04:10 07/21/21 04:10 Labs: Laboratory Results - last 24 hr 07/19/21 04:10: Diff Path Review Reviewed 07/20/21 04:55: Diff Path Review Reviewed 07/21/21 04:10: WBC 9.6, RBC 3.11 L, Hgb 8.9 L, Hct 27.3 L, MCV 87.8, MCH 28.6, MCHC 32.6, RDW Std Deviation 50.6 H, RDW Coeff of Tyrell 16.8 H, Plt Count 169, MPV 9.8, Neut % (Auto) Not Reportable, Absolute Neuts (auto) 8.4 H, Absolute Lymphs (auto) 0.29 L, Total Counted 100, Neutrophils % (Manual) 86 H, Band Neutrophils % 1, Lymphocytes % (Manual) 3 L, Monocytes % (Manual) 6, Eosinophils % (Manual) 1, Metamyelocytes % 1, Myelocytes % 2 H, Nucleated RBCs/100 WBC 3, Diff Path Review May foll, Platelet Estimate ADEQUATE, Anisocytosis RARE, Microcytosis RARE 07/21/21 04:10: Sodium 132 L, Potassium 3.8, Chloride 97 L, Carbon Dioxide 24.0, Anion Gap 11, BUN 68 H, Creatinine 2.66 H, Estim Creat Clear Calc 17.91, Est GFR (MDRD) Af Amer 23 L, Est GFR (MDRD) Non-Af 19 L, BUN/Creatinine Ratio 25.6 H, Glucose 147 H, Calcium 7.9 L Micro: Microbiology 07/18/21 11:20 Stool C. difficile DNA Amplification - Final 07/18/21 11:20 Stool Stool Occult Blood (ROSEMARIE) - Final Occult Blood Positive 07/11/21 15:00 Blood Culture (Wb) - Right Wrist Blood Culture - Final No growth in 5 days. 07/11/21 15:15 Blood Culture (Wb) - Right Hand Blood Culture - Final No growth in 5 days. 07/11/21 15:00 Urine Catheter - Richardson Urine Culture - Final Yeast, not Rosio albicans 07/11/21 15:25 Sputum, Induced/Lukens Gram Stain - Final 07/11/21 15:25 Sputum, Induced/Lukens Respiratory Culture - Final Coag Negative Staph 07/06/21 11:20 Sputum, Induced/Lukens Gram Stain - Final 07/06/21 11:20 Sputum, Induced/Lukens Respiratory Culture - Final Culture exhibits no growth. 06/28/21 12:01 Blood Culture (Wb) - Right Hand Blood Culture - Final No growth in 5 days. 06/28/21 11:52 Blood Culture (Wb) - Left Hand Blood Culture - Final No growth in 5 days. 06/26/21 20:35 Urine, Clean Catch Streptococcus pneumoniae Antigen (M - Final 06/26/21 20:35 Urine, Clean Catch Legionella Antigen - Final 06/28/21 16:50 Mucosa - Nasopharyngeal Influenza Types A,B Direct FA ([facility]) - Final Influenzae B 06/26/21 20:35 Urine, Clean Catch Urine Culture - Final Escherichia coli Physical Exam Const Constitutional Narrative: Intubated, sedated and mechanically ventilated. No ventilator dyssynchrony. Anasarca noted. Nutritional Appearance: morbidly obese HEENT normocephalic and head/scalp atraumatic Mouth: endotracheal tube in place and OG tube in place Eyes PERRL and EOMs intact bilaterally Neck supple General: trachea midline and CVC in place Chest inspection of chest normal Resp Effort and Inspection: tachypneic Auscultation: diminished lung sounds; Negative for rales, rhonchi or wheezes Cardio regular rate, regular rhythm, S1 normal heart sound and S2 normal heart sound Heart Sounds: murmur GI normal to inspection, nondistended, normoactive bowel sounds Extremity no clubbing, cyanosis or edema Skin no rashes or lesions noted Neuro Sensorium / Orientation: sedated on vent Charges/Coding Procedures Hospitalists Procedures: 02379 Critial Care 1st Hr
[2021-07-21] MEDS: Dexmedetomidine 1,000 mcg in 0.9% NS 240 mL 41.9 MCG CONT INF ×3 (07:41→20:00)
[2021-07-21] MEDS: Levothyroxine 88 MCG Tablet GT (08:05)
[2021-07-21] MEDS: Tacrolimus Anhydrous 1 MG Capsule 2 MG GT ×2 (08:05→21:24)
[2021-07-21] MEDS: Ursodiol 250 MG Tablet GT ×2 (08:05→21:24)
[2021-07-21] MEDS: Calcium (Elemental) 500 MG Tablet GT ×2 (08:05→21:24)
[2021-07-21] MEDS: Aspirin 81 MG TAB.CHEW GT (08:05)
[2021-07-21] MEDS: Lactulose 20 GM/30 ML UDC GT (08:06)
[2021-07-21] MEDS: Chlorhexidine 15 ML PO ×2 (08:06→21:01)
[2021-07-21] MEDS: Cholecalciferol (VIT D3) 25 MCG TABLET (1,000 UNITS) 50 MCG GT (08:06)
[2021-07-21] MEDS: Tacrolimus 0.5 MG Capsule GT ×2 (08:06→21:24)
[2021-07-21] MEDS: rifAXIMin 550 MG Tablet GT ×2 (08:07→21:24)
[2021-07-21] MEDS: QUEtiapine 100 MG Tablet PO ×2 (08:16→21:24)
[2021-07-21] MEDS: Menthol/Lanolin/Calamine/Znox 113 GM Tube 1 APPLIC TOPICAL ×2 (08:20→21:01)
--- NOTE | 2021-07-21 09:42 | PCM.PN.REN ---
Documented by User: ALCIDES Benavides 07/21/21 09:51 Subjective Subjective On vent, no overnight events. Objective Data Objective Data Vital Signs: Vital Signs Temp Pulse Resp BP Pulse Ox 97.7 F L 57 L 20 H 98/57 L 97 07/21/21 09:00 07/21/21 09:12 07/21/21 09:12 07/21/21 09:00 07/21/21 09:12 Oxygen Flow Rate (L/min) [ 3 AMBULATING with Oxygen #1] Oxygen Flow Rate (L/min) 100 Oxygen Delivery Method Mechanical Ventilator Weight: 111.7 kg Body Mass Index (BMI) 40.8 Intake & Output: Intake and Output for Last 24 Hours 07/19/21 07/20/21 07/21/21 23:59 23:59 23:59 Intake Total 4321.34 / 4500.64 2475.86 / 2647.26 1043.89 / 1043.89 Output Total 1395 / 1395 1870 / 2260 600 / 600 Balance 2926.34 / 3105.64 605.86 / 387.26 443.89 / 443.89 Lab / Micro Data Result Diagrams: 07/21/21 04:10 07/21/21 04:10 Labs: Laboratory Results - last 24 hr 07/19/21 04:10: Diff Path Review Reviewed 07/20/21 04:55: Diff Path Review Reviewed 07/21/21 04:10: WBC 9.6, RBC 3.11 L, Hgb 8.9 L, Hct 27.3 L, MCV 87.8, MCH 28.6, MCHC 32.6, RDW Std Deviation 50.6 H, RDW Coeff of Tyrell 16.8 H, Plt Count 169, MPV 9.8, Neut % (Auto) Not Reportable, Absolute Neuts (auto) 8.4 H, Absolute Lymphs (auto) 0.29 L, Total Counted 100, Neutrophils % (Manual) 86 H, Band Neutrophils % 1, Lymphocytes % (Manual) 3 L, Monocytes % (Manual) 6, Eosinophils % (Manual) 1, Metamyelocytes % 1, Myelocytes % 2 H, Nucleated RBCs/100 WBC 3, Diff Path Review May foll, Platelet Estimate ADEQUATE, Anisocytosis RARE, Microcytosis RARE 07/21/21 04:10: Sodium 132 L, Potassium 3.8, Chloride 97 L, Carbon Dioxide 24.0, Anion Gap 11, BUN 68 H, Creatinine 2.66 H, Estim Creat Clear Calc 17.91, Est GFR (MDRD) Af Amer 23 L, Est GFR (MDRD) Non-Af 19 L, BUN/Creatinine Ratio 25.6 H, Glucose 147 H, Calcium 7.9 L Micro: Microbiology 07/18/21 11:20 Stool C. difficile DNA Amplification - Final 07/18/21 11:20 Stool Stool Occult Blood (ROSEMARIE) - Final Occult Blood Positive 07/11/21 15:00 Blood Culture (Wb) - Right Wrist Blood Culture - Final No growth in 5 days. 07/11/21 15:15 Blood Culture (Wb) - Right Hand Blood Culture - Final No growth in 5 days. 07/11/21 15:00 Urine Catheter - Richardson Urine Culture - Final Yeast, not Rosio albicans 07/11/21 15:25 Sputum, Induced/Lukens Gram Stain - Final 07/11/21 15:25 Sputum, Induced/Lukens Respiratory Culture - Final Coag Negative Staph 07/06/21 11:20 Sputum, Induced/Lukens Gram Stain - Final 07/06/21 11:20 Sputum, Induced/Lukens Respiratory Culture - Final Culture exhibits no growth. 06/28/21 12:01 Blood Culture (Wb) - Right Hand Blood Culture - Final No growth in 5 days. 06/28/21 11:52 Blood Culture (Wb) - Left Hand Blood Culture - Final No growth in 5 days. 06/26/21 20:35 Urine, Clean Catch Streptococcus pneumoniae Antigen (M - Final 06/26/21 20:35 Urine, Clean Catch Legionella Antigen - Final 06/28/21 16:50 Mucosa - Nasopharyngeal Influenza Types A,B Direct FA ([facility]) - Final Influenzae B 06/26/21 20:35 Urine, Clean Catch Urine Culture - Final Escherichia coli Physical Exam Narrative General:On ventilator, sedated HEENT: Intubated. CV: Normal S1/S2. No R/M/G. Lungs: Coarse BS BL. Abdomen: Soft Extremities: No pitting edema non-tunneled temporary HD catheter dressing C/D/I Assessment & Plan Assessment/Plan (1) OPAL (acute kidney injury): PLAN: -OPAL is likely due to ischemic ATN related to sepsis. The patient remains oliguric -Dialysis was initiated on 07/08/2021. -On MWF dialysis schedule. -No noted renal recovery at this time, 07/20 pre-HD SCr 3.74mg/dL, Bun 121. Tolerated HD 07/20 with 1L UF. Fluid removal limited due to hypotension. On levophed - likely will plan for HD tomorrow. - Hgb dropped 6.9 and required PRBC, stool OB +. Hgb improved 8.9. On pantoprazole. (2) Chronic kidney disease, stage 3a: PLAN: -Baseline serum creatinine is 1.4 mg/dL. (3) Immunosuppressed status: PLAN: -The patient is status post orthotopic liver transplantation. -On tacrolimus, mycophenolate, and prednisone. Mycophenolate is on hold as per transplant team recommendation due to COVID-19 infection. -The patient is also being followed by GI. (4) Acute respiratory failure with hypoxia: PLAN: -The patient is ventilator dependent. -She has finished treatment course for COVID-19 and influenza B. She is on empiric antibiotic as per medical records tech due to recent fever. -UF as possible with HD (limited by low BP). - peg and trach on hold at this time per family wishes. Family to see patient later today. If family wishes for peg and trach and patient remains dialysis dependent then she will need tunneled HD catheter as well. Will continue to follow Documented by User: Dr. Conner Garcia MD 07/21/21 18:23 Objective Data Lab / Micro Data Result Diagrams: 07/21/21 04:10 07/21/21 04:10
[2021-07-21] MEDS: Fluconazole 100 MG in Viaflex Bag 1 BAG 50 MG IV (10:32)
--- NOTE | 2021-07-21 12:07 | NURSING ---
Patient very restless in the bed at this time, coughing over ventilator and is desaturating at this time. Dr Emerson said it was okay to turn the Fentanyl up to 200mcg at this time.
--- NOTE | 2021-07-21 12:46 | CHAPLAIN ---
Type of Pastoral Visit _x__ Initial Visit ___ Follow-up Visit ___ On-call Visit ___ General Patient Visit ___ Spiritual Assessment ___ Family Conference ___ Bereavement ___ Rapid Response ___ Code Blue ___ Other (describe below) Pastoral Care Referral From ___ Patient ___ Family _x__ Nurse ___ Physician ___ Wafer Substrate Tester ___ Program And Research Coordinator ___ Other (describe below) Sacrament/Intervention ___ Active listening ___ Anointing ___ Baptist ___ Bereavement ___ Communion ___ Nuvia exploration ___ ___ Life review ___ Prayer ___ Reconciliation ___ Sacrament of Sick _x__ Supportive presence ___ Wedding ___ Other (describe below) Pastoral Comments met with family as they gathered in the waiting room for the RN to come speak to them; offered support and listening opportunity; family is here to be informed about patient's condition and make decisions for patient; this garment examiner to remain available for support and spiritual care as needed
--- NOTE | 2021-07-21 13:03 | PCM.PN.HOSP ---
Subjective Subjective Patient remains intubated and sedated. No events overnight. PEEP remains at 12 and FiO2 is at 65%. Trach and PEG are on hold for family discussion later today. Objective Data Objective Data Vital Signs: Vital Signs Temp Pulse Resp BP Pulse Ox 97.9 F 61 18 118/63 99 07/21/21 12:00 07/21/21 12:00 07/21/21 12:00 07/21/21 12:00 07/21/21 12:00 Oxygen Flow Rate (L/min) [ 3 AMBULATING with Oxygen #1] Oxygen Flow Rate (L/min) 100 Oxygen Delivery Method Mechanical Ventilator Weight: 111.7 kg Body Mass Index (BMI) 40.8 Intake & Output: Intake and Output for Last 24 Hours 07/19/21 07/20/21 07/21/21 23:59 23:59 23:59 Intake Total 4321.34 / 4500.64 2475.86 / 2647.26 1514.79 / 1514.79 Output Total 1395 / 1395 1870 / 2260 610 / 610 Balance 2926.34 / 3105.64 605.86 / 387.26 904.79 / 904.79 Lab / Micro Data Result Diagrams: 07/21/21 04:10 07/21/21 04:10 Labs: Laboratory Results - last 24 hr 07/19/21 04:10: Diff Path Review Reviewed 07/20/21 04:55: Diff Path Review Reviewed 07/21/21 04:10: WBC 9.6, RBC 3.11 L, Hgb 8.9 L, Hct 27.3 L, MCV 87.8, MCH 28.6, MCHC 32.6, RDW Std Deviation 50.6 H, RDW Coeff of Tyrell 16.8 H, Plt Count 169, MPV 9.8, Neut % (Auto) Not Reportable, Absolute Neuts (auto) 8.4 H, Absolute Lymphs (auto) 0.29 L, Total Counted 100, Neutrophils % (Manual) 86 H, Band Neutrophils % 1, Lymphocytes % (Manual) 3 L, Monocytes % (Manual) 6, Eosinophils % (Manual) 1, Metamyelocytes % 1, Myelocytes % 2 H, Nucleated RBCs/100 WBC 3, Diff Path Review May foll, Platelet Estimate ADEQUATE, Anisocytosis RARE, Microcytosis RARE 07/21/21 04:10: Sodium 132 L, Potassium 3.8, Chloride 97 L, Carbon Dioxide 24.0, Anion Gap 11, BUN 68 H, Creatinine 2.66 H, Estim Creat Clear Calc 17.91, Est GFR (MDRD) Af Amer 23 L, Est GFR (MDRD) Non-Af 19 L, BUN/Creatinine Ratio 25.6 H, Glucose 147 H, Calcium 7.9 L Micro: Microbiology 07/18/21 11:20 Stool C. difficile DNA Amplification - Final 07/18/21 11:20 Stool Stool Occult Blood (ROSEMARIE) - Final Occult Blood Positive 07/11/21 15:00 Blood Culture (Wb) - Right Wrist Blood Culture - Final No growth in 5 days. 07/11/21 15:15 Blood Culture (Wb) - Right Hand Blood Culture - Final No growth in 5 days. 07/11/21 15:00 Urine Catheter - Richardson Urine Culture - Final Yeast, not Rosio albicans 07/11/21 15:25 Sputum, Induced/Lukens Gram Stain - Final 07/11/21 15:25 Sputum, Induced/Lukens Respiratory Culture - Final Coag Negative Staph 07/06/21 11:20 Sputum, Induced/Lukens Gram Stain - Final 07/06/21 11:20 Sputum, Induced/Lukens Respiratory Culture - Final Culture exhibits no growth. 06/28/21 12:01 Blood Culture (Wb) - Right Hand Blood Culture - Final No growth in 5 days. 06/28/21 11:52 Blood Culture (Wb) - Left Hand Blood Culture - Final No growth in 5 days. 06/26/21 20:35 Urine, Clean Catch Streptococcus pneumoniae Antigen (M - Final 06/26/21 20:35 Urine, Clean Catch Legionella Antigen - Final 06/28/21 16:50 Mucosa - Nasopharyngeal Influenza Types A,B Direct FA (ROSEMARIE) - Final Influenzae B 06/26/21 20:35 Urine, Clean Catch Urine Culture - Final Escherichia coli Physical Exam Const alert and oriented x3 Constitutional Narrative: Obese white female lying in bed, intubated and sedated, patient does open eyes just a bit to tactile stimulus General Appearance: intubated and patient mechanically ventilated Exam Limitations: no limitations Nutritional Appearance: morbidly obese HEENT normocephalic, head/scalp atraumatic and moist oral mucous membranes HEENT Narrative: ET tube in place Head and Scalp: normocephalic Eyes Eyes Narrative: No scleral icterus Neck Neck Narrative: Right IJ dialysis catheter in place-clean and dry Resp normal respiratory effort, no retractions and no use of accessory muscles Resp Narrative: Diffusely diminished breath sounds but no adventitious sounds noted, tachypnea noted Auscultation: diminished lung sounds; Negative for crackles, rales, rhonchi or wheezes Cardio regular rate, regular rhythm, S1 normal heart sound, S2 normal heart sound, no murmurs, no rub, no gallops, no clicks and no JVD GI normal to inspection, nondistended, normoactive bowel sounds, soft to palpation and non-distended; Negative for hepatosplenomegaly Extremity no clubbing, cyanosis or edema Extremity Narrative: left upper extremity PICC which is clean and dry Peripheral Pulses: Yes pulses 2+ throughout Neuro Neuro Narrative: Intubated and sedated Sensorium / Orientation: sedated on vent Psych Appearance: intubated Assessment & Plan Assessment/Plan (1) Acute respiratory failure with hypoxia: (2) Influenza B: (3) COVID-19: (4) OPAL (acute kidney injury): (5) Shock: PLAN: Acute hypoxic respiratory failure secondary to influenza B and COVID-19/superimposed bacterial pneumonia -Patient required intubation on 07/06/2021 -Had been on BiPAP for 48 continuous straight hours with worsening oxygenation -Intubated 07/06/2021--> vent day 16 -Remains on ventilator at an FiO2 of 65% with a PEEP of 12--> SPO2 96% -Trach and PEG are on hold and family meeting to be held later today -Had been sick for approximately 3 weeks prior to admission -Was vaccinated and boosted however was immunocompromised with CellCept, tacrolimus, and prednisone -Not a baricitinib candidate secondary to liver transplant -Decadron completed -Tamiflu completed -Continue prophylactic Lovenox -Pulmonary medicine following-appreciate input -ID following-appreciate input Distributive shock -Suspect multifactorial -Patient is now off Levophed -Urine culture showed noncandidal yeast growth and fluconazole has been initiated--> renally dosed -Further studies are still pending -Sputum culture shows coag negative staph -Patient remains on broad-spectrum antibiotics -Continue per ID -Continue stress dose steroids for now and slowly wean -Infectious diseases following -C. difficile was negative OPAL on CKD stage IIIa secondary to ischemic ATN -Dialysis was initiated on 07/08/2021 -Last HD was 07/15/2021 -Dialysis today and thus far is remaining off pressors however blood pressures are borderline soft -Discussed case with Dr. Fuentes's nurse practitioner and tunneled dialysis catheter will be on hold given family meeting and potential palliation -HD Tuesday/Tuesday/Tuesday -Nephrology is following and appreciate input Autoimmune hepatitis status post liver transplant -Patient remains on outpatient immunosuppression except for CellCept which is on hold per fitness and wellness coordinator recommendations -Tacrolimus level was 3.7 and dose remains continued -Will need outpatient follow-up if patient survives acute hospitalization -Continue home rifaximin/lactulose via OG -Continue home Bactrim for PCP prophylaxis via OG -Continue home ursodiol Acute normocytic anemia -Suspect related to critical illness -Hemoccult was positive -Hemoglobin stable at 8.9 today -Blood transfusion done yesterday 07/19 -PPI increased to 40 mg twice daily -Chemical DVT prophylaxis discontinued History of asthma -As per above Hypothyroidism -Continue home Synthroid GERD -Continue IV Protonix 40 mg daily Hyperlipidemia -Continue home statin Obesity -BMI is 38.8 -Complicates treatment, prognosis, outcomes, -Recommend weight loss DVT prophylaxis -Continue Lovenox 30 mg subcu daily CODE STATUS -Full code -Overall prognosis is likely poor given comorbidities and current status Charges/Coding Visit Charges Inpatient E&M: 61501 Subs Hosp L2
--- NOTE | 2021-07-21 13:56 | CASEMGMT ---
Social Work SW participated in ICU rounds this morning, family to be in later today. Family did come in and met w/Dr. Emerson. SW then met w/pt's children Margot, Tapan and Vishal in pt's room. SW provided to family a copy of pt's LW and POA. Daughter Margot explained that they are hoping pt will wake up enough for them to speak w/her, as they don't know what she wants to do. Tapan states pt was always against getting intubated, but then agreed to having the tube placed. SW offered support to family, and let them know will continue to be available to speak with them to talk through things. GRISELDA Glez
[2021-07-21] MEDS: NEPRO TUBE FEED 1,000 ML 10 ML GT (17:09)
[2021-07-21] MEDS: Atorvastatin Calcium 10 MG Tablet GT (21:24)
[2021-07-22] VITALS (51 sets, daily range): BP systolic 74–163; BP diastolic 47–98; PULSE 52–102; RESP 13–41; TEMP 35.9–37; O2SAT 86–99
[2021-07-22] MEDS: Dexmedetomidine 1,000 mcg in 0.9% NS 240 mL 41.9 MCG CONT INF ×4 (02:00→19:48)
[2021-07-22] MEDS: CHLORHEXIDINE GLUC 2% CLOTH 1 EACH TOWELETTE TOPICAL (02:51)
[2021-07-22 03:36] LABS: Hematocrit 27.8 % (37-47); Mean Corp Hgb Conc 32.4 g/dL (32-36); Mean Corpuscular Hgb 28.4 pg (27.0-32.0); Mean Corpuscular Volume 87.7 fL (81-99); Mean Platelet Vol. 9.7 fl (6.2-12.0); POSITIVE COUNT YES; POSITIVE DIFFERENTIAL YES; POSITIVE MORPHOLOGY YES; Platelet Count 191 K/mm3 (150-450); RBC Distribution Width CV 16.5 % (11.6-14.6); RBC Distribution Width SD 49.6 fl (35.1-43.9); Red Blood Count 3.17 M/mm3 (4.2-5.4); White Blood Count 8.6 K/mm3 (4.4-11.0)
[2021-07-22 03:50] LABS: Anion Gap 13 (5-15); BUN 88 mg/dL (7-18); BUN/Creat Ratio 27.8 RATIO (10-20); Calcium,Total 8.1 mg/dL (8.5-10.1); Chloride 97 mmol/L (98-107); Creatinine, Serum 3.16 mg/dL (0.55-1.02); EST Glomerular Filtration Rate 16 mL/min (>60); Est Glom Filt Rate - Afr Amer 19 mL/min (>60); Estimated Creatinine Clearance 15.07 ml/min; Glucose 181 mg/dL (74-106); Potassium 4.4 mmol/L (3.5-5.1); Sodium Level 131 mmol/L (136-145)
[2021-07-22 03:51] LABS: Differential Indicated MANUAL DIFF
[2021-07-22 04:18] LABS: Lymphocyte 3 % (19-41); Metamyelocyte 1 % (0-1); Monocyte 2 % (0-10); Neutrophil-Band 3 % (0-5); Neutrophil-Segmented 90 % (47-70); Nucleated Red Bld Cells,Manual 1 % (0-5); Platelet Estimate ADEQUATE (ADEQ); Promyelocyte 1 % (0-0); Total Cells Counted 100 (MANUAL DIFF)
[2021-07-22 04:19] LABS: Neutrophil # 7.95 X10^3/uL (2.7-7.7); Polychromasia RARE; Red Cell Morphology N CYTIC NORMAL (NORM C&C)
[2021-07-22 04:20] LABS: Absolute Lymphocyte Count 0.26 X10^3/uL (0.83-4.51); Lymphocyte # 0.26 X10^3/ul (0.83-4.51)
[2021-07-22 04:24] LABS: Vancomycin, Random Level 18.7 ug/mL (0.0-15.0)
[2021-07-22] MEDS: Hydrocortisone Sod Succinate 100 MG/2 ML Vial 50 MG IV ×4 (04:52→23:03)
[2021-07-22] MEDS: 0.9% Saline Lock 10 ML Syringe IV (04:53)
--- NOTE | 2021-07-22 07:13 | PN.CC_ITS ---
Assessment & Plan Assessment/Plan (1) COVID-19: (2) Influenza B: PLAN: RECOMMENDATIONS: 1. Continue mechanical ventilation and wean FiO2 for saturations greater than 90%. 2. Continue antimicrobials and empiric antifungal coverage per infectious disease. 3. Ongoing hemodialysis with volume removal, per nephrology recommendations. 4. Continue SCDs for DVT prophylaxis in light of possible GI blood loss. 5. Continue Protonix to twice daily. 6. Continue stress dose steroids as ordered 7. Anticipate PEG placement today 8. Proceed with tracheostomy and PEG placement. IMPRESSIONS: 1. Acute hypoxemic respiratory failure secondary to COVID-19/influenza B The patient was initially admitted to the hospital on June 27 and subsequently tested positive for both COVID-19 and influenza. The patient is vaccinated at her baseline. However, she is immunosuppressed due to a history of a liver transplant. The patient's oxygenation status progressively worsened over the course of her hospitalization, ultimately culminating in intubation on July 06. She has completed a treatment course of Tamiflu. She has been c ontinued on Decadron and prophylactic Lovenox. Infectious disease is following. Patient has been placed on empiric antibiotics and antifungals. Continue to wean FiO2 to maintain saturations at or above 90%. Ongoing volume optimization through hemodialysis per nephrology recommendations. Long discussion with the patient's family yesterday. Family has decided to proceed with trach and PEG. Patient will need LTAC placement. Patient still on 12 of PEEP and day 17 of intubation. 2. Distributive shock/relative adrenal insufficiency Likely multifactorial with underlying infection and hemodynamic effects of sedative medication use contributing. Continue vasopressor support, if needed, as ordered to maintain a mean arterial pressure at or above 65 mmHg. Continue stress dose steroids. Likely wean tomorrow if no longer requiring pressors. Anticipate holding stress dose at current levels able to tolerate significant volume removal with hemodialysis. 3. Acute kidney injury Likely secondary to ischemic ATN in the setting of #1. Nephrology is currently following to assist with hemodialysis needs and volume removal. Patient is dialysis dependent at this time. 4. Chronic baseline immunosuppressed state secondary to liver transplantation Continue baseline outpatient immunosuppressive regimen, with the exception of CellCept. Liver function profile remains within normal limits. Tacrolimus levels were within therapeutic limits. GI is following 5. Anemia Likely secondary to GI blood loss. Stool for occult blood was positive earlier in the hospitalization. Patient with good response to blood transfusions. Check H&H daily. Increased dosing frequency of Protonix to twice daily. 6. Morbid obesity/asthma/hypothyroidism/hyperlipidemia/GERD Complicates care, management, recovery and prognosis. Continue home medications as indicated. Poor overall prognosis. TIME: 38 minutes of critical care time, independent of procedures, was spent addressing the patient's acute hypoxemic respiratory failure secondary to COVID- 19/influenza B, distributive shock, acute kidney injury, anemia, review of all data and collaboration with the care team. Subjective Subjective Extensive conversation with the patient's family yesterday. Yesterday evening, family decided to move forward with a tracheostomy and PEG. PEG is tentatively scheduled for 130 today. Patient has not required any pressors. Patient did not have hemodialysis yesterday. Oxygen status has remained stable, but patient does desaturate with agitation and vent dyssynchrony. Objective Data Objective Data Vital Signs: Vital Signs Temp Pulse Resp BP Pulse Ox 36.1 C L 66 19 H 122/63 H 96 07/22/21 04:00 07/22/21 06:00 07/22/21 06:00 07/22/21 06:00 07/22/21 06:00 Oxygen Flow Rate (L/min) [ 3 AMBULATING with Oxygen #1] Oxygen Flow Rate (L/min) 100 Oxygen Delivery Method Mechanical Ventilator Weight: 113.4 kg Body Mass Index (BMI) 40.8 Intake & Output: Intake and Output for Last 24 Hours 07/20/21 07/21/21 07/22/21 23:59 23:59 23:59 Intake Total 2475.86 / 2647.26 2458.73 / 2887.88 1250.65 / 1250.65 Output Total 1870 / 2260 1375 / 1425 150 / 150 Balance 605.86 / 387.26 1083.73 / 1462.88 1100.65 / 1100.65 Lab / Micro Data Result Diagrams: 07/22/21 03:25 07/22/21 03:25 Labs: Laboratory Results - last 24 hr 07/22/21 03:25: Random Vancomycin 18.7 H 07/22/21 03:25: WBC 8.6, RBC 3.17 L, Hgb 9.0 L, Hct 27.8 L, MCV 87.7, MCH 28.4, MCHC 32.4, RDW Std Deviation 49.6 H, RDW Coeff of Tyrell 16.5 H, Plt Count 191, MPV 9.7, Neut % (Auto) Not Reportable, Absolute Neuts (auto) 8.0 H, Absolute Lymphs (auto) 0.26 L, Total Counted 100, Neutrophils % (Manual) 90 H, Band Neutrophils % 3, Lymphocytes % (Manual) 3 L, Monocytes % (Manual) 2, Metamyelocytes % 1, Promyelocytes % 1 H, Nucleated RBCs/100 WBC 1, Diff Path Review October, Platelet Estimate ADEQUATE, RBC Morphology N CYTIC, Polychromasia RARE 07/22/21 03:25: Sodium 131 L, Potassium 4.4, Chloride 97 L, Carbon Dioxide 21.0, Anion Gap 13, BUN 88 H, Creatinine 3.16 H, Estim Creat Clear Calc 15.07, Est GFR (MDRD) Af Amer 19 L, Est GFR (MDRD) Non-Af 16 L, BUN/Creatinine Ratio 27.8 H, Glucose 181 H, Calcium 8.1 L Micro: Microbiology 07/18/21 11:20 Stool C. difficile DNA Amplification - Final 07/18/21 11:20 Stool Stool Occult Blood (ROSEMARIE) - Final Occult Blood Positive 07/11/21 15:00 Blood Culture (Wb) - Right Wrist Blood Culture - Final No growth in 5 days. 07/11/21 15:15 Blood Culture (Wb) - Right Hand Blood Culture - Final No growth in 5 days. 07/11/21 15:00 Urine Catheter - Richardson Urine Culture - Final Yeast, not Rosio albicans 07/11/21 15:25 Sputum, Induced/Lukens Gram Stain - Final 07/11/21 15:25 Sputum, Induced/Lukens Respiratory Culture - Final Coag Negative Staph 07/06/21 11:20 Sputum, Induced/Lukens Gram Stain - Final 07/06/21 11:20 Sputum, Induced/Lukens Respiratory Culture - Final Culture exhibits no growth. 06/28/21 12:01 Blood Culture (Wb) - Right Hand Blood Culture - Final No growth in 5 days. 06/28/21 11:52 Blood Culture (Wb) - Left Hand Blood Culture - Final No growth in 5 days. 06/26/21 20:35 Urine, Clean Catch Streptococcus pneumoniae Antigen (M - Final 06/26/21 20:35 Urine, Clean Catch Legionella Antigen - Final 06/28/21 16:50 Mucosa - Nasopharyngeal Influenza Types A,B Direct FA (ROSEMARIE) - Final Influenzae B 06/26/21 20:35 Urine, Clean Catch Urine Culture - Final Escherichia coli Physical Exam Const Constitutional Narrative: Intubated, sedated and mechanically ventilated. No ventilator dyssynchrony. Anasarca noted. Nutritional Appearance: morbidly obese HEENT normocephalic and head/scalp atraumatic Mouth: endotracheal tube in place and OG tube in place Eyes PERRL and EOMs intact bilaterally Neck supple General: trachea midline and CVC in place Chest inspection of chest normal Chest: Negative for crepitus Resp Effort and Inspection: tachypneic Auscultation: diminished lung sounds; Negative for rales, rhonchi or wheezes Cardio regular rate, regular rhythm, S1 normal heart sound and S2 normal heart sound Heart Sounds: murmur GI normal to inspection, nondistended, normoactive bowel sounds Extremity General Extremity: edema; Negative for clubbing or cyanosis Skin no rashes or lesions noted Neuro Sensorium / Orientation: sedated on vent Charges/Coding Procedures Hospitalists Procedures: 00528 Critial Care 1st Hr
--- NOTE | 2021-07-22 08:26 | PCM.RX.CS ---
Consult Pharmacy has been consulted to manage selected antiobiotic: Vancomycin Type of Consult: Follow-up Prior Doses of Antibiotics Received/Current Regimen: Received 750mg iv x 1 post dialysis on 07.20.21. Labs: Sodium 131 mmol/L (136-145) L 07/22/21 03:25 Potassium 4.4 mmol/L (3.5-5.1) 07/22/21 03:25 Chloride 97 mmol/L (98-107) L 07/22/21 03:25 Carbon Dioxide 21.0 mmol/L (21.0-32.0) 07/22/21 03:25 Anion Gap 13 (5-15) 07/22/21 03:25 BUN 88 mg/dL (7-18) H 07/22/21 03:25 Creatinine 3.16 mg/dL (0.55-1.02) H 07/22/21 03:25 Est GFR (MDRD) Af Amer 19 mL/min (>60) L 07/22/21 03:25 Est GFR (MDRD) Non-Af 16 mL/min (>60) L 07/22/21 03:25 BUN/Creatinine Ratio 27.8 RATIO (10-20) H 07/22/21 03:25 Glucose 181 mg/dL (74-106) H 07/22/21 03:25 Vancomycin Trough 14.0 ug/mL (5.0-15.0) 07/07/21 11:30 Random Vancomycin 18.7 ug/mL (0.0-15.0) H 07/22/21 03:25 Microbiology: Microbiology 07/18/21 11:20 Stool C. difficile DNA Amplification - Final 07/18/21 11:20 Stool Stool Occult Blood (ROSEMARIE) - Final Occult Blood Positive 07/11/21 15:00 Blood Culture (Wb) - Right Wrist Blood Culture - Final No growth in 5 days. 07/11/21 15:15 Blood Culture (Wb) - Right Hand Blood Culture - Final No growth in 5 days. 07/11/21 15:00 Urine Catheter - Richardson Urine Culture - Final Yeast, not Rosio albicans 07/11/21 15:25 Sputum, Induced/Lukens Gram Stain - Final 07/11/21 15:25 Sputum, Induced/Lukens Respiratory Culture - Final Coag Negative Staph 07/06/21 11:20 Sputum, Induced/Lukens Gram Stain - Final 07/06/21 11:20 Sputum, Induced/Lukens Respiratory Culture - Final Culture exhibits no growth. 06/28/21 12:01 Blood Culture (Wb) - Right Hand Blood Culture - Final No growth in 5 days. 06/28/21 11:52 Blood Culture (Wb) - Left Hand Blood Culture - Final No growth in 5 days. 06/26/21 20:35 Urine, Clean Catch Streptococcus pneumoniae Antigen (M - Final 06/26/21 20:35 Urine, Clean Catch Legionella Antigen - Final 06/28/21 16:50 Mucosa - Nasopharyngeal Influenza Types A,B Direct FA (ROSEMARIE) - Final Influenzae B 06/26/21 20:35 Urine, Clean Catch Urine Culture - Final Escherichia coli Weight used for dosin kg Estimated Creatinine Clearance: 15ml/min Goal Trough: 15-20 mcg/mL Pharmacy Plan for Drug Dosing: Random level this AM was 18.7. This was a 36hr post dose level. Getting dialysis today. Will give 500mg iv x 1 post dialysis per protocol. New random level ordered for 07.24.21. Pharmacy Service will continue to monitor and adjust dosing as required. Follow-Up Labs: Trough Vancomycin - random level . @0600
[2021-07-22] MEDS: LORazepam 2 MG/ML Syringe IV (08:45)
[2021-07-22] MEDS: Lactulose 20 GM/30 ML UDC GT (08:49)
[2021-07-22] MEDS: Levothyroxine 88 MCG Tablet GT (08:49)
[2021-07-22] MEDS: rifAXIMin 550 MG Tablet GT ×2 (08:49→23:03)
[2021-07-22] MEDS: Tacrolimus Anhydrous 1 MG Capsule 2 MG GT ×2 (08:50→23:08)
[2021-07-22] MEDS: Smz/Tmp Ds Tablet 1 TABLET GT (08:50)
[2021-07-22] MEDS: Cholecalciferol (VIT D3) 25 MCG TABLET (1,000 UNITS) 50 MCG GT (08:50)
[2021-07-22] MEDS: QUEtiapine 100 MG Tablet PO ×2 (08:50→23:02)
[2021-07-22] MEDS: Ursodiol 250 MG Tablet GT ×2 (08:50→23:02)
[2021-07-22] MEDS: Aspirin 81 MG TAB.CHEW GT (08:50)
[2021-07-22] MEDS: Ferrous Gluconate 324 MG Tablet PO (08:50)
[2021-07-22] MEDS: Chlorhexidine 15 ML PO (08:51)
[2021-07-22] MEDS: Menthol/Lanolin/Calamine/Znox 113 GM Tube 1 APPLIC TOPICAL ×2 (08:51→23:01)
[2021-07-22] MEDS: Calcium (Elemental) 500 MG Tablet GT ×2 (08:51→23:06)
[2021-07-22] MEDS: Tacrolimus 0.5 MG Capsule GT ×2 (08:51→23:03)
[2021-07-22 09:43] LABS: Pathologist Review Reviewed
--- NOTE | 2021-07-22 10:22 | PN.SURG_ITS ---
Subjective Subjective Family meeting held yesterday still planning for trach and PEG. PEG scheduled for 130 today. Objective Data Objective Data Vital Signs: Vital Signs Temp Pulse Resp BP Pulse Ox 97.1 F L 60 18 115/66 94 07/22/21 10:00 07/22/21 10:00 07/22/21 10:00 07/22/21 10:15 07/22/21 10:00 Oxygen Flow Rate (L/min) [ 3 AMBULATING with Oxygen #1] Oxygen Flow Rate (L/min) 100 Oxygen Delivery Method Mechanical Ventilator Weight: 250 lb 0.067 oz Body Mass Index (BMI) 40.8 Intake & Output: Intake and Output for Last 24 Hours 07/20/21 07/21/21 07/22/21 23:59 23:59 23:59 Intake Total 2475.86 / 2647.26 2458.73 / 2887.88 1518.00 / 1518.00 Output Total 1870 / 2260 1375 / 1425 150 / 150 Balance 605.86 / 387.26 1083.73 / 1462.88 1368.00 / 1368.00 Lab / Micro Data Result Diagrams: 07/22/21 03:25 07/22/21 03:25 Labs: Laboratory Results - last 24 hr 07/21/21 04:10: Diff Path Review Reviewed 07/22/21 03:25: Random Vancomycin 18.7 H 07/22/21 03:25: WBC 8.6, RBC 3.17 L, Hgb 9.0 L, Hct 27.8 L, MCV 87.7, MCH 28.4, MCHC 32.4, RDW Std Deviation 49.6 H, RDW Coeff of Tyrell 16.5 H, Plt Count 191, MPV 9.7, Neut % (Auto) Not Reportable, Absolute Neuts (auto) 8.0 H, Absolute Lymphs (auto) 0.26 L, Total Counted 100, Neutrophils % (Manual) 90 H, Band Neutrophils % 3, Lymphocytes % (Manual) 3 L, Monocytes % (Manual) 2, Metamyelocytes % 1, Promyelocytes % 1 H, Nucleated RBCs/100 WBC 1, Diff Path Review May , Platelet Estimate ADEQUATE, RBC Morphology N CYTIC, Polychromasia RARE 07/22/21 03:25: Sodium 131 L, Potassium 4.4, Chloride 97 L, Carbon Dioxide 21.0, Anion Gap 13, BUN 88 H, Creatinine 3.16 H, Estim Creat Clear Calc 15.07, Est GFR (MDRD) Af Amer 19 L, Est GFR (MDRD) Non-Af 16 L, BUN/Creatinine Ratio 27.8 H, Glucose 181 H, Calcium 8.1 L Micro: Microbiology 07/18/21 11:20 Stool C. difficile DNA Amplification - Final 07/18/21 11:20 Stool Stool Occult Blood (ROSEMARIE) - Final Occult Blood Positive 07/11/21 15:00 Blood Culture (Wb) - Right Wrist Blood Culture - Final No growth in 5 days. 07/11/21 15:15 Blood Culture (Wb) - Right Hand Blood Culture - Final No growth in 5 days. 07/11/21 15:00 Urine Catheter - Richardson Urine Culture - Final Yeast, not Rosio albicans 07/11/21 15:25 Sputum, Induced/Lukens Gram Stain - Final 07/11/21 15:25 Sputum, Induced/Lukens Respiratory Culture - Final Coag Negative Staph 07/06/21 11:20 Sputum, Induced/Lukens Gram Stain - Final 07/06/21 11:20 Sputum, Induced/Lukens Respiratory Culture - Final Culture exhibits no growth. 06/28/21 12:01 Blood Culture (Wb) - Right Hand Blood Culture - Final No growth in 5 days. 06/28/21 11:52 Blood Culture (Wb) - Left Hand Blood Culture - Final No growth in 5 days. 06/26/21 20:35 Urine, Clean Catch Streptococcus pneumoniae Antigen (M - Final 06/26/21 20:35 Urine, Clean Catch Legionella Antigen - Final 06/28/21 16:50 Mucosa - Nasopharyngeal Influenza Types A,B Direct FA (ROSEMARIE) - Final Influenzae B 06/26/21 20:35 Urine, Clean Catch Urine Culture - Final Escherichia coli Physical Exam Narrative Patient is intubated and sedated. Resp Auscultation: diminished lung sounds Cardio regular rate GI soft to palpation GI Narrative: Previous chevron incision well-healed Assessment & Plan Assessment/Plan (1) Malnutrition: (2) COVID-19: (3) Influenza B: (4) Acute respiratory failure with hypoxia: (5) Immunosuppressed status: PLAN: Did review CT abdomen pelvis from previous did appear that her colon was below her stomach thus I believe able to be done safely endoscopically. Did discuss with patient's daughter/POA?Negro as patient is intubated/sedated. I have discussed the above with patient's daughter I have offered the patient EGD with PEG placement I have explained the risks/benefits of the procedure and described the procedure. I have discussed the risks with the patient's daughter, including but not limited to: infection, bleeding, perforation of the GI tract requiring emergency surgery, inability to complete the procedure, injury to any internal organs, complications of anesthesia, etc. - the patient's daughter understands and agrees to proceed. I have answered all the patient's daughter questions to the patient's daughter satisfaction and the patient has no further questions. Lona Sampson M.D. Pager: [phone] [facility] [address] [place] [address] [address] [place] [id number] Office: [phone]
--- NOTE | 2021-07-22 13:04 | PCM.PN.ID ---
Physical Exam Narrative No fever, on vent, trach/peg planned Const no apparent distress Resp Effort and Inspection: mechanically ventilated Cardio regular rate and regular rhythm GI soft to palpation, non-tender and non-distended Skin no rashes or lesions noted ID ID: Route of nutrition/ use of supplements: [] Nutritional Intake: [] IV Site: [] Richardson Catheter: [] Assessment & Plan Assessment/Plan (1) CKD (chronic kidney disease) stage 3, GFR 30-59 ml/min: (2) Liver transplant recipient: (3) Hypoxia: (4) COVID-19: PLAN: Sick for approximately 3 weeks prior to admit. Covid vaccine x3. Also flu B Ag (+). On cellcept, tacro, pred, bactrim at home with h/o liver transplant. Not candidate for baricitinib due to liver transplant. On dex here and completed empiric course of cefepime. Ucx with ecoli, 80-100k. Completed 5 days of tamiflu for flu coverage. Remains intubated. Worsening OPAL, now on HD. New fevers, started on empiric vanc/eli /. O2 slowly improving. Sputum with some CoNS. Added fluc 07/19. Wbc now normal, FiO2 65%, fever resolved. Will stop vanc/eli today. Will follow (5) Influenza B:
--- NOTE | 2021-07-22 13:32 | DIALYSIS ---
Hemodialysis x4 hours completed at 1135 on a 3K bath, tolerated well with Levophed restarted, UF 2000mL, accessed via right neck temporary dialysis catheter, worked well with lines reversed due to sticky pull arterial port, next tx planned for Tuesday
--- NOTE | 2021-07-22 13:45 | IMM_PTH ---
PATIENT: CHELI FITCH LOC: ICU U#:[id number] AGE/SX: 61/F ROOM: ICU02 RE06/26/[address]: Dr. Sujey Hess MD : 1960 BED: 1 DIS: 07/30/2021 SPEC #: [id number] RECD: 07/23/21 13:25 STATUS: SOUT REQ #: [id number] SANDRA: 07/22/21 13:[address]: Lona Sampson DEPT: IMMUNOHISTOCHEMISTRY RECD BY: Pina eD ENTERED: 07/23/21 13:26 SP TYPE: IMMUNO OTHR DR: MD Dr. Jonathan Bryan DO Dr. Joseph Agyepong, MD Dr. Kathryn Lee, DO Dr. Kevin Mathur, MD Dr. Natthavat Tanphaichitr, MD Dr. Robert Leininger, MD Tissues: Stomach, NOS Procedures: H Pylori (initial) PHYSICIAN & [place] [id number] SPECIMEN INFORMATION: Tissue Source: Antrum biopsy Clinical Info: COVID-19 influenza B Specimen Number: [id number] CPT code: 24907 METHODOLOGY: Deparaffinized sections of prefer/formalin-fixed tissue or PAP/DQ stained slides are incubated with monoclonal/polyclonal antibodies/oligonucleotide probes. Localization is made via biotin free immunoperoxidase method. Appropriate controls are performed and reacted as expected. Results on target cell population are indicated in the following table: RESULTS: ANTIBODY / CLONE RESULT H Pylori (polyclonal) negative These tests were developed and their performance characteristics determined by [facility]. They may not have been cleared or approved by the U.S. Food and Drug Administration. The FDA has determined that such clearance or approval is not necessary. INTERPRETATION: Antrum biopsy: Negative for Helicobacter pylori organisms. SJ:adali 07/24/2021
--- NOTE | 2021-07-22 13:45 | EGD_PTH ---
PATIENT: CHELI FITCH LOC: [facility] U#:[id number] AGE/SX: 61/F ROOM: ICU02 RE06/26/[address]: Dr. Sujey Hess MD : 1960 BED: 1 DIS: 07/30/2021 SPEC #: [id number] RECD: 07/22/21 14:31 STATUS: LYDIA REQ #: [id number] SANDRA: 07/22/21 13:[address]: Lona Sampson DEPT: SURGICAL PATHOLOGY RECD BY: Mamie Coleman ENTERED: 07/23/21 07:30 SP TYPE: EGD BIOPSY OTHR DR: MD Dr. Jonathan Bryan DO Dr. Joseph Agyepong, MD Dr. Kathryn Lee, DO Dr. Kevin Mathur, MD Dr. Natthavat Tanphaichitr, MD Dr. Robert Leininger, MD Dr. Tamera Robotham, MD Tissues: Gastric mucous membrane Procedures: Surgery Specimen Level IV Comments: @ Ordering doctor for SUIV edited from to @ by RGOOD at 07/23/21 152 @ Submitting doctor edited from to @ by RGOOD at 07/23/21 1522 HEADER OPERATION: EGD (MAC) with PEG tube, biopsy PRE-OP DIAGNOSIS: COVID-19 influenza B TISSUE SUBMITTED: Antrum biopsy for histo and H. pylori MICROSCOPIC DIAGNOSIS Antrum, biopsy: A fragment of gastric mucosa with focal ulceration, fibrinous exudation, chronic inflammation, congestion and hemorrhage. See comment. SJ:adali 07/24/2021 COMMENT The results of immunohistochemistry for Helicobacter pylori will be reported separately ([id number]). MICROSCOPIC DESCRIPTION Slides are reviewed. GROSS DESCRIPTION Received in fixative is one container labeled with the patient's name and designated antrum biopsy. The specimen consists of one irregular fragment of light addison soft tissue that measures 0.3 x 0.3 x 0.1 cm. The specimen is totally submitted in one cassette. / MULUGETA:adali 07/23/2021 TC:2 CPT: 41223
[2021-07-22] MEDS: Propofol 200 MG/20 ML Vial 20 MG IV BOLUS (14:07)
--- NOTE | 2021-07-22 14:08 | NURSING ---
Dr Sampson and Dr Emerson at bedside to do PEG placement. Propofol given at 13:50 40mg, Propofol given at 13:55 20mg, propofol given at 1400 20mg. Total of 80mg of propofol given for procedure. patient tolerated well. PEG successfully placed at 1407.
--- NOTE | 2021-07-22 14:13 | PCM.OP.PRO ---
Procedure Report Date of Procedure: 07/22/21 CONSCIOUS SEDATION REPORT BRIEF HISTORY OF PRESENT ILLNESS: The patient is a 61-year-old female who presented to [facility] for respiratory distress on 06/26/2021 and found to have COVID-19 and influenza. Patient's past medical history is significant for a liver transplant. Patient has had a very complicated hospital stay leading to protracted intubation. Family is electing for tracheostomy and PEG. I was asked to provide conscious sedation for PEG placement by surgery. This was independent of critical care time in medical management earlier in the day. Patient has been n.p.o. since midnight. Patient was on Precedex and fentanyl for vent synchrony. Additional medications for PEG are described below. PHYSICAL EXAMINATION: VITAL SIGNS: Reviewed and were acceptable. GENERAL: The patient is a female intubated with OG in place. HEENT: Normocephalic, atraumatic. Mucous membranes are moist and pink. Poor mouth opening noted. Trachea is midline. Good neck mobility. Unable to assess Mallampati secondary to sedation CHEST: S1, S2 regular rate and rhythm. Murmur present. No rubs or gallops were noted. LUNGS: Clear to auscultation bilaterally without appreciable wheezes, rales or rhonchi. ABDOMEN: Soft, nontender, nondistended. Positive bowel sounds. EXTREMITIES: There is no clubbing, cyanosis or edema. ASA Class: II DESCRIPTION OF PROCEDURE: After confirmation of informed consent, the patient's anesthesia plan was reviewed in detail with staff that was present. Additional propofol was chosen. Risks and benefits were reviewed and the team agreed to proceed. Patient's ventilator was placed from 65% to 100% for the procedure. At 1:50 PM, the patient was given 40 mg of propofol. The patient required a total of 80 mg of propofol throughout the procedure to achieve appropriate sedation. The patient achieved an appropriate level of sedation and tolerated the procedure well without complications. See surgery note for more details. The patient was monitored until 2:10 PM, at which time the patient reached their baseline mental status and function. The patient tolerated the procedure well. COMPLICATIONS: None ESTIMATED BLOOD LOSS: None RECOMMENDATIONS: Okay to continue support in the intensive care unit. Procedures Pulmonary 9xxxx: [id number] Con Sedation
--- NOTE | 2021-07-22 14:16 | OP.EGD_ITS ---
Patient Name: Silvia Call Procedure Date: 07/22/2021 1:52 PM Date of : 1960 Age: 61 Procedure: Upper GI endoscopy Indications: Malnutrition Providers: Lona Sampson MD Medicines: Monitored Anesthesia Care Patient Profile: This is a 61 year old female. Complications: No immediate complications. Procedure: Pre-Anesthesia Assessment: - Prior to the procedure, a History and Physical was performed, and patient medications and allergies were reviewed. The patient's tolerance of previous anesthesia was also reviewed. The risks and benefits of the procedure and the sedation options and risks were discussed with the patient. All questions were answered, and informed consent was obtained. Prior Anticoagulants: The patient has taken Lovenox (enoxaparin), last dose was 1 day prior to procedure. ASA Grade Assessment: Per Erecting Crane Operator. After reviewing the risks and benefits, the patient was deemed in satisfactory condition to undergo the procedure. After obtaining informed consent, the endoscope was passed under direct vision. Throughout the procedure, the patient's blood pressure, pulse, and oxygen saturations were monitored continuously. The Endoscope was introduced through the mouth, and advanced to the duodenal bulb. The upper GI endoscopy was accomplished without difficulty. The patient tolerated the procedure well. Moderate Sedation: Per Erecting Crane Operator--Pt on vent Scope In: 1:53:07 PM Scope Out: 2:04:25 PM Total Procedure Duration Time 0 hours 11 minutes 18 seconds Findings: The Z-line was irregular and was found 40 cm from the incisors. Diffuse Moderate to severe inflammation with hemorrhage characterized by erythema and friability and possible kenny was found in the entire examined stomach. Biopsies were taken with a cold forceps for histology. Biopsies were taken with a cold forceps for Helicobacter pylori cultures. The patient was placed in the supine position for PEG placement. The stomach was insufflated to appose gastric and abdominal ardon. A site was located in the body of the stomach with good transillumination for placement. The abdominal wall was marked and prepped in a sterile manner. The area was anesthetized with 5 mL of 0.5% lidocaine. The trocar needle was introduced through the abdominal wall and into the stomach under direct endoscopic view. A snare was introduced through the endoscope and opened in the gastric lumen. The guide wire was passed through the trocar and into the open snare. The snare was closed around the guide wire. The endoscope and snare were removed, pulling the wire out through the mouth. A skin incision was made at the site of needle insertion. The externally removable 20 Fr EndoVive Safety gastrostomy tube was lubricated. The G-tube was tied to the guide wire and pulled through the mouth and into the stomach. The trocar needle was removed, and the gastrostomy tube was pulled out from the stomach through the skin. The external bumper was attached to the gastrostomy tube, and the tube was cut to remove the guide wire. The final position of the gastrostomy tube was confirmed by relook endoscopy, and skin marking noted to be 5 cm at the external bumper. The final tension and compression of the abdominal wall by the PEG tube and external bumper were checked and revealed that the bumper was loose and lightly touching the skin. The feeding tube was capped, and the tube site cleaned and dressed. Impression: - Z-line irregular, 40 cm from the incisors. - Gastritis with hemorrhage. Biopsied. - An externally removable PEG placement was successfully completed. Recommendation: - Return patient to ICU for ongoing care. - Continue present medications. - Await pathology results. Procedure Code(s): --- Professional --- 88152, Esophagogastroduodenoscopy, flexible, transoral; with directed placement of percutaneous gastrostomy tube 79965, Esophagogastroduodenoscopy, flexible, transoral; with biopsy, single or multiple Diagnosis Code(s): --- Professional --- K22.8, Other specified diseases of esophagus K29.71, Gastritis, unspecified, with bleeding E46, Unspecified protein-calorie malnutrition CPT copyright 2017 [employer]. All rights reserved. The codes documented in this report are preliminary and upon pipe organ tuner and repairer review may be revised to meet current compliance requirements. MD Lona Gupta MD 07/22/2021 2:16:12 PM This report has been signed electronically. Number of Addenda: 0 Note Initiated On: 07/22/2021 1:52 PM
--- NOTE | 2021-07-22 14:17 | OP.CCLET_ITS ---
07/22/2021 Ayesha Vieyra [address] [place] [address] Re : Upper GI endoscopy procedure for Silvia Call Dear Dr. Vieyra This procedure was performed on Thursday, July 22, 2021. My impressions and recommendations are as follows: Impressions : - Z-line irregular, 40 cm from the incisors. - Gastritis with hemorrhage. Biopsied. - An externally removable PEG placement was successfully completed. Recommendations : - Return patient to ICU for ongoing care. - Continue present medications. - Await pathology results. My findings are described in the full procedure note, which is enclosed. If I can be of further assistance, please feel free to contact me at Doctor phone number(s): , Work: . Sincerely, MD Lona Gupta MD 07/22/2021 2:16:12 PM This report has been signed electronically.
--- NOTE | 2021-07-22 14:29 | CASEMGMT ---
Addendum entered by Marlene Reddy 07/22/21 16:11: Call received from Leana @ [facility]. She states this RN SHAUNA was provided w/incorrect info re: [employer]'s 7-day post-trach requirements. She states [employer] does not require a 7-day post-trach acute care hospital stay before approving LTAC, but they do require 3 failed SBT attempts and prefer PEEP of 10 or less. Original Note: EDWARD VILLATORO NOTE: PEG has been placed today and trach placement planned for tomorrow. EDWARD VILLATORO spoke w/pt's daughter/HPOA, Negro, via phone conversation and discussed LTAC's w/her. She consents for pt to transfer to LTAC when medically ready and states wishes for her to go to the closest one. She was made aware [facility] in [place] is the closest and is in network and that [facility] is also in [place], but they are out of network. [facility]. Call placed to Leilani @ [facility] and referral made. She was made aware PEG placed today and trach placement planned for tomorrow. She states [employer] MCR uses [place] criteria and they typically require 7-days post-trach placement before approving transfer to LTAC. Referral packet faxed to [facility] at this time. Vasile CAMPBELL RN, CM
--- NOTE | 2021-07-22 14:59 | PN.RENAL_ITS ---
Subjective Subjective On vent, no overnight events Objective Data Objective Data Vital Signs: Vital Signs Temp Pulse Resp BP Pulse Ox 97.3 F L 63 16 155/74 H 99 07/22/21 14:00 07/22/21 14:00 07/22/21 14:00 07/22/21 14:00 07/22/21 14:00 Oxygen Flow Rate (L/min) [ 3 AMBULATING with Oxygen #1] Oxygen Flow Rate (L/min) 100 Oxygen Delivery Method Mechanical Ventilator Weight: 113.4 kg Body Mass Index (BMI) 40.8 Intake & Output: Intake and Output for Last 24 Hours 07/20/21 07/21/21 07/22/21 23:59 23:59 23:59 Intake Total 2475.86 / 2647.26 2458.73 / 2887.88 1922.95 / 1922.95 Output Total 1870 / 2260 1375 / 1425 2340 / 2340 Balance 605.86 / 387.26 1083.73 / 1462.88 -417.05 / -417.05 Lab / Micro Data Result Diagrams: 07/22/21 03:25 07/22/21 03:25 Labs: Laboratory Results - last 24 hr 07/21/21 04:10: Diff Path Review Reviewed 07/22/21 03:25: Random Vancomycin 18.7 H 07/22/21 03:25: WBC 8.6, RBC 3.17 L, Hgb 9.0 L, Hct 27.8 L, MCV 87.7, MCH 28.4, MCHC 32.4, RDW Std Deviation 49.6 H, RDW Coeff of Tyrell 16.5 H, Plt Count 191, MPV 9.7, Neut % (Auto) Not Reportable, Absolute Neuts (auto) 8.0 H, Absolute Lymphs (auto) 0.26 L, Total Counted 100, Neutrophils % (Manual) 90 H, Band Neutrophils % 3, Lymphocytes % (Manual) 3 L, Monocytes % (Manual) 2, Metamyelocytes % 1, Promyelocytes % 1 H, Nucleated RBCs/100 WBC 1, Diff Path Review May Timothy hall et Estimate ADEQUATE, RBC Morphology N CYTIC, Polychromasia RARE 07/22/21 03:25: Sodium 131 L, Potassium 4.4, Chloride 97 L, Carbon Dioxide 21.0, Anion Gap 13, BUN 88 H, Creatinine 3.16 H, Estim Creat Clear Calc 15.07, Est GFR (MDRD) Af Amer 19 L, Est GFR (MDRD) Non-Af 16 L, BUN/Creatinine Ratio 27.8 H, Glucose 181 H, Calcium 8.1 L Micro: Microbiology 07/18/21 11:20 Stool C. difficile DNA Amplification - Final 07/18/21 11:20 Stool Stool Occult Blood (ROSEMARIE) - Final Occult Blood Positive 07/11/21 15:00 Blood Culture (Wb) - Right Wrist Blood Culture - Final No growth in 5 days. 07/11/21 15:15 Blood Culture (Wb) - Right Hand Blood Culture - Final No growth in 5 days. 07/11/21 15:00 Urine Catheter - Richardson Urine Culture - Final Yeast, not Rosio albicans 07/11/21 15:25 Sputum, Induced/Lukens Gram Stain - Final 07/11/21 15:25 Sputum, Induced/Lukens Respiratory Culture - Final Coag Negative Staph 07/06/21 11:20 Sputum, Induced/Lukens Gram Stain - Final 07/06/21 11:20 Sputum, Induced/Lukens Respiratory Culture - Final Culture exhibits no growth. 06/28/21 12:01 Blood Culture (Wb) - Right Hand Blood Culture - Final No growth in 5 days. 06/28/21 11:52 Blood Culture (Wb) - Left Hand Blood Culture - Final No growth in 5 days. 06/26/21 20:35 Urine, Clean Catch Streptococcus pneumoniae Antigen (M - Final 06/26/21 20:35 Urine, Clean Catch Legionella Antigen - Final 06/28/21 16:50 Mucosa - Nasopharyngeal Influenza Types A,B Direct FA (ROSEMARIE) - Final Influenzae B 06/26/21 20:35 Urine, Clean Catch Urine Culture - Final Escherichia coli Physical Exam Narrative Const: On vent. NAD noted Cardio: S1 S2 Resp: clear anteriorly Extremities: no pitting edema noted Nontunneled right IJ HD catheter, dressing clean dry and intact Assessment & Plan (1) OPAL (acute kidney injury): PLAN: -OPAL is likely due to ischemic ATN related to sepsis. The patient remains oliguric -Dialysis was initiated on 07/08/2021. -On MWF dialysis schedule. -No noted renal recovery at this time. Patient had dialysis today, tolerated 2 L of fluid removed. She did need pressors during HD at 10mcg. Fluid removal limited due to hypotension. On levophed - Hgb dropped 6.9 and required PRBC, stool OB +. Hgb improved 9.0. On pantoprazole. (2) Chronic kidney disease, stage 3a: PLAN: -Baseline serum creatinine is 1.4 mg/dL. (3) Immunosuppressed status: PLAN: -The patient is status post orthotopic liver transplantation. -On tacrolimus, mycophenolate, and prednisone. Mycophenolate is on hold as per transplant team recommendation due to COVID-19 infection. -The patient is also being followed by GI. (4) Acute respiratory failure with hypoxia: PLAN: -The patient is ventilator dependent. -She has finished treatment course for COVID-19 and influenza B. She is on empiric antibiotic as per rubber process hand due to recent fever. -UF as possible with HD (limited by low BP). - peg placed today. To have trach. I spoke to patient's [place], and explained patient will need tunneled HD catheter before discharge from hospital as she is still dialysis dependent. Questions answered. Tapan wishes for tunneled HD catheter placed. Will continue to follow
--- NOTE | 2021-07-22 15:20 | PCM.PN.HOSP ---
Subjective Subjective Patient remains intubated and sedated however she is more arousable than she had been previously. Currently in dialysis. Goal pole is for 1 to 2 L today. She seems somewhat agitated at this point therefore a as needed Ativan was given one-time dose. Nursing states she gets more agitated when people are in the room. Objective Data Objective Data Vital Signs: Vital Signs Temp Pulse Resp BP Pulse Ox 97.5 F L 61 18 147/68 H 96 07/22/21 15:00 07/22/21 15:13 07/22/21 15:00 07/22/21 15:00 07/22/21 15:00 Oxygen Flow Rate (L/min) [ 3 AMBULATING with Oxygen #1] Oxygen Flow Rate (L/min) 100 Oxygen Delivery Method Mechanical Ventilator Weight: 113.4 kg Body Mass Index (BMI) 40.8 Intake & Output: Intake and Output for Last 24 Hours 07/20/21 07/21/21 07/22/21 23:59 23:59 23:59 Intake Total 2475.86 / 2647.26 2458.73 / 2887.88 25 / Output Total 1870 / 2260 1375 / 1425 2340 / 2340 Balance 605.86 / 387.26 1083.73 / 1462.88 -345.75 / -345.75 Lab / Micro Data Result Diagrams: 07/22/21 03:25 07/22/21 03:25 Labs: Laboratory Results - last 24 hr 07/21/21 04:10: Diff Path Review Reviewed 07/22/21 03:25: Random Vancomycin 18.7 H 07/22/21 03:25: WBC 8.6, RBC 3.17 L, Hgb 9.0 L, Hct 27.8 L, MCV 87.7, MCH 28.4, MCHC 32.4, RDW Std Deviation 49.6 H, RDW Coeff of Tyrell 16.5 H, Plt Count 191, MPV 9.7, Neut % (Auto) Not Reportable, Absolute Neuts (auto) 8.0 H, Absolute Lymphs (auto) 0.26 L, Total Counted 100, Neutrophils % (Manual) 90 H, Band Neutrophils % 3, Lymphocytes % (Manual) 3 L, Monocytes % (Manual) 2, Metamyelocytes % 1, Promyelocytes % 1 H, Nucleated RBCs/100 WBC 1, Diff Path Review May foll, Platelet Estimate ADEQUATE, RBC Morphology N CYTIC, Polychromasia RARE 07/22/21 03:25: Sodium 131 L, Potassium 4.4, Chloride 97 L, Carbon Dioxide 21.0, Anion Gap 13, BUN 88 H, Creatinine 3.16 H, Estim Creat Clear Calc 15.07, Est GFR (MDRD) Af Amer 19 L, Est GFR (MDRD) Non-Af 16 L, BUN/Creatinine Ratio 27.8 H, Glucose 181 H, Calcium 8.1 L Micro: Microbiology 07/18/21 11:20 Stool C. difficile DNA Amplification - Final 07/18/21 11:20 Stool Stool Occult Blood (ROSEMARIE) - Final Occult Blood Positive 07/11/21 15:00 Blood Culture (Wb) - Right Wrist Blood Culture - Final No growth in 5 days. 07/11/21 15:15 Blood Culture (Wb) - Right Hand Blood Culture - Final No growth in 5 days. 07/11/21 15:00 Urine Catheter - Richardson Urine Culture - Final Yeast, not Rosio albicans 07/11/21 15:25 Sputum, Induced/Lukens Gram Stain - Final 07/11/21 15:25 Sputum, Induced/Lukens Respiratory Culture - Final Coag Negative Staph 07/06/21 11:20 Sputum, Induced/Lukens Gram Stain - Final 07/06/21 11:20 Sputum, Induced/Lukens Respiratory Culture - Final Culture exhibits no growth. 06/28/21 12:01 Blood Culture (Wb) - Right Hand Blood Culture - Final No growth in 5 days. 06/28/21 11:52 Blood Culture (Wb) - Left Hand Blood Culture - Final No growth in 5 days. 06/26/21 20:35 Urine, Clean Catch Streptococcus pneumoniae Antigen (M - Final 06/26/21 20:35 Urine, Clean Catch Legionella Antigen - Final 06/28/21 16:50 Mucosa - Nasopharyngeal Influenza Types A,B Direct FA (ROSEMARIE) - Final Influenzae B 06/26/21 20:35 Urine, Clean Catch Urine Culture - Final Escherichia coli Physical Exam Const alert and oriented x3 Constitutional Narrative: Obese white female lying in bed, intubated and sedated, patient seems somewhat agitated at this time however she is maxed out on her sedation, dialysis nurse at bedside General Appearance: intubated and patient mechanically ventilated Exam Limitations: no limitations Nutritional Appearance: morbidly obese HEENT normocephalic, head/scalp atraumatic and moist oral mucous membranes Head and Scalp: normocephalic Resp normal respiratory effort, no retractions and no use of accessory muscles Resp Narrative: Diffusely diminished breath sounds but no adventitious sounds noted, tachypnea noted Auscultation: diminished lung sounds; Negative for crackles, rales, rhonchi or wheezes Cardio regular rate, regular rhythm, S1 normal heart sound, S2 normal heart sound, no murmurs, no rub, no gallops, no clicks and no JVD GI normal to inspection, nondistended, normoactive bowel sounds, soft to palpation and non-distended; Negative for hepatosplenomegaly Extremity no clubbing, cyanosis or edema Extremity Narrative: left upper extremity PICC which is clean and dry Peripheral Pulses: Yes pulses 2+ throughout Skin no rashes or lesions noted, no wounds, skin turgor normal, no jaundice, no petechiae and no mottling Neuro Neuro Narrative: Intubated and sedated Sensorium / Orientation: sedated on vent Psych Appearance: intubated Assessment & Plan Assessment/Plan (1) Acute respiratory failure with hypoxia: (2) Influenza B: (3) COVID-19: (4) OPAL (acute kidney injury): (5) Shock: PLAN: Acute hypoxic respiratory failure secondary to influenza B and COVID-19/superimposed bacterial pneumonia -Patient required intubation on 07/06/2021 -Had been on BiPAP for 48 continuous straight hours with worsening oxygenation -Intubated 07/06/2021--> vent day 17 -Remains on ventilator at an FiO2 of 65% with a PEEP of 12--> SPO2 96% -Family has elected to proceed with trach and PEG -To be done later this week -Had been sick for approximately 3 weeks prior to admission -Was vaccinated and boosted however was immunocompromised with CellCept, tacrolimus, and prednisone -Not a baricitinib candidate secondary to liver transplant -Decadron completed -Tamiflu completed -Continue prophylactic Lovenox -Pulmonary medicine following-appreciate input -ID following-appreciate input Distributive shock -Suspect multifactorial -Patient remains off pressors -Urine culture showed noncandidal yeast growth and fluconazole has been initiated--> renally dosed -Further studies are still pending -Antibiotics have been discontinued other than the fluconazole -Continue stress dose steroids for now but will wean to 50 mg twice daily -Infectious diseases following -C. difficile was negative OPAL on CKD stage IIIa secondary to ischemic ATN -Dialysis was initiated on 07/08/2021 -Last HD was 07/15/2021 -Dialysis today and thus far is remaining off pressors however blood pressures are borderline soft -Tunneled dialysis catheter later this week versus next week -HD Tuesday/Tuesday/Tuesday -Nephrology is following and appreciate input Autoimmune hepatitis status post liver transplant -Patient remains on outpatient immunosuppression except for CellCept which is on hold per adoption coordinator recommendations -Tacrolimus level was 3.7 and dose remains continued -Will need outpatient follow-up if patient survives acute hospitalization -Continue home rifaximin/lactulose via OG -Continue home Bactrim for PCP prophylaxis via OG -Continue home ursodiol Acute normocytic anemia -Suspect related to critical illness -Hemoccult was positive -Hemoglobin stable at 9.0 today -Blood transfusion 07/19 for hemoglobin of 6.9 -PPI 40 mg twice daily -Chemical DVT prophylaxis discontinued History of asthma -As per above Hypothyroidism -Continue home Synthroid GERD -Continue IV Protonix 40 mg daily Hyperlipidemia -Continue home statin Obesity -BMI is 38.8 -Complicates treatment, prognosis, outcomes, -Recommend weight loss DVT prophylaxis -SCDs -No chemoprophylaxis secondary to GI bleed CODE STATUS -Full code -Overall prognosis is likely poor given comorbidities and current status Charges/Coding Visit Charges Inpatient E&M: 76484 Subs Hosp L2
[2021-07-22] MEDS: LORazepam 2 MG/ML Syringe 0.5 MG IV (18:31)
[2021-07-22] MEDS: Senna/Docusate Sodium 1 Tablet GT (23:02)
[2021-07-22] MEDS: Atorvastatin Calcium 10 MG Tablet GT (23:09)
[2021-07-23] VITALS (60 sets, daily range): BP systolic 78–141; BP diastolic 50–92; PULSE 53–97; RESP 14–27; TEMP 36.2–37.1; O2SAT 87–100; BMI 44.5
[2021-07-23] MEDS: Chlorhexidine 15 ML PO ×3 (00:08→22:57)
[2021-07-23] MEDS: Dexmedetomidine 1,000 mcg in 0.9% NS 240 mL 41.9 MCG CONT INF (01:40)
[2021-07-23] MEDS: CHLORHEXIDINE GLUC 2% CLOTH 1 EACH TOWELETTE TOPICAL (01:40)
[2021-07-23 05:13] LABS: Absolute Lymphocyte Count 0.25 X10^3/uL (0.83-4.51); Absolute Neutrophil Count 8.6 X10^3/uL (2.0-7.7); Basophil# 0.01 X10^3/uL; Basophil% 0.1 % (0-1); Differential Indicated SCAN CRITERIA MET; Eosinophil# 0.05 X10^3/uL; Eosinophils% 0.5 % (0-5); Hematocrit 25.8 % (37-47); Hemoglobin 8.5 g/dL (12.0-15.0); Lymphocyte # 0.25 X10^3/ul (0.83-4.51); Lymphocyte % 2.6 % (19-41); Mean Corp Hgb Conc 32.9 g/dL (32-36); Mean Corpuscular Hgb 28.6 pg (27.0-32.0); Mean Corpuscular Volume 86.9 fL (81-99); Mean Platelet Vol. 9.7 fl (6.2-12.0); Monocyte# 0.36 X10^3/uL; Monocyte% 3.8 % (0-10); NRBC Flagged by Analyzer 0.4 % (0-5); Neutrophil # 8.59 X10^3/uL (2.7-7.7); Neutrophil % 90.5 % (47-70); POSITIVE DIFFERENTIAL YES; Platelet Count 188 K/mm3 (150-450); RBC Distribution Width CV 16.1 % (11.6-14.6); RBC Distribution Width SD 47.8 fl (35.1-43.9); Red Blood Count 2.97 M/mm3 (4.2-5.4); White Blood Count 9.5 K/mm3 (4.4-11.0)
[2021-07-23 05:26] LABS: Anion Gap 6 (5-15); BUN 41 mg/dL (7-18); BUN/Creat Ratio 21.6 RATIO (10-20); Calcium,Total 7.3 mg/dL (8.5-10.1); Chloride 101 mmol/L (98-107); EST Glomerular Filtration Rate 28 mL/min (>60); Est Glom Filt Rate - Afr Amer 34 mL/min (>60); Estimated Creatinine Clearance 25.07 ml/min; Glucose 128 mg/dL (74-106); Potassium 3.5 mmol/L (3.5-5.1); Sodium Level 132 mmol/L (136-145)
[2021-07-23 05:33] LABS: Differential Comment SCANNED
[2021-07-23] MEDS: TITRATION PARAMETER CHANGE 1 EACH IV (05:44)
--- NOTE | 2021-07-23 07:40 | NURSING ---
unable to chart levophed titration. States that there is nothing left in bag but there is roughly 20 mls left. Have to chart vital signs under normal vital signs.
--- NOTE | 2021-07-23 07:45 | PCM.PN.INT ---
Assessment & Plan Assessment/Plan (1) COVID-19: (2) Influenza B: PLAN: RECOMMENDATIONS: 1. Continue mechanical ventilation and wean FiO2 for saturations greater than 90%. 2. Continue antimicrobials and empiric antifungal coverage per infectious disease. 3. Remove hemodialysis line and arrange for tunneled dialysis line tomorrow if okay with nephrology 4. Continue SCDs for DVT prophylaxis in light of possible GI blood loss. 5. Continue Protonix to twice daily. 6. Potentially wean stress dose steroids following surgery IMPRESSIONS: 1. Acute hypoxemic respiratory failure secondary to COVID-19/influenza B The patient was initially admitted to the hospital on June 27 and subsequently tested positive for both COVID-19 and influenza. The patient is vaccinated at her baseline. However, she is immunosuppressed due to a history of a liver transplant. The patient's oxygenation status progressively worsened over the course of her hospitalization, ultimately culminating in intubation on July 06. She has completed a treatment course of Tamiflu. She has been continued on Decadron and prophylactic Lovenox. Infectious disease is following. Patient has been placed on empiric antibiotics and antifungals. Continue to wean FiO2 to maintain saturations at or above 90%. Ongoing volume optimization through hemodialysis per nephrology recommendations. Patient to have tracheostomy today. 2. Distributive shock/relative adrenal insufficiency Likely multifactorial with underlying infection and hemodynamic effects of sedative medication use contributing. Continue vasopressor support, if needed, as ordered to maintain a mean arterial pressure at or above 65 mmHg. Continue stress dose steroids until not requiring pressors. Anticipate holding stress dose at current levels able to tolerate significant volume removal with hemodialysis. 3. Acute kidney injury Likely secondary to ischemic ATN in the setting of #1. Nephrology is currently following to assist with hemodialysis needs and volume removal. Patient is dialysis dependent at this time. Still with minimal urine output 4. Chronic baseline immunosuppressed state secondary to liver transplantation Continue baseline outpatient immunosuppressive regimen, with the exception of CellCept. Liver function profile remains within normal limits. Tacrolimus levels were within therapeutic limits. GI is following 5. Anemia Likely secondary to GI blood loss. Stool for occult blood was positive earlier in the hospitalization. Patient with good response to blood transfusions. Check H&H daily. Increased dosing frequency of Protonix to twice daily. 6. Morbid obesity/asthma/hypothyroidism/hyperlipidemia/GERD Complicates care, management, recovery and prognosis. Continue home medications as indicated. Poor overall prognosis. TIME: 35 minutes of critical care time, independent of procedures, was spent addressing the patient's acute hypoxemic respiratory failure secondary to COVID-19/influenza B, distributive shock, acute kidney injury, anemia, review of all data and collaboration with the care team. Subjective Subjective Patient did okay overnight. Patient was able to come off of Levophed this morning. Patient tolerated dialysis yesterday with 2 L removed. Patient also tolerated PEG placement with no complications overnight reported by nursing. Discussed with surgery this morning. Potentially able to put in a tunneled hemodialysis line tomorrow. Have not been able to discuss with nephrology at this time. Objective Data Objective Data Vital Signs: Vital Signs Temp Pulse Resp BP Pulse Ox 36.9 C 71 17 96/60 93 07/23/21 07:00 07/23/21 07:00 07/23/21 07:32 07/23/21 07:00 07/23/21 07:00 Oxygen Flow Rate (L/min) [ 3 AMBULATING with Oxygen #1] Oxygen Flow Rate (L/min) 100 Oxygen Delivery Method Mechanical Ventilator Weight: 114.1 kg Body Mass Index (BMI) 40.8 Intake & Output: Intake and Output for Last 24 Hours 07/21/21 07/22/21 07/23/21 23:59 23:59 23:59 Intake Total 2458.73 / 2887.88 3022.28 / 3069.06 495.74 / 495.74 Output Total 1375 / 1425 2340 / 2340 110 / 110 Balance 1083.73 / 1462.88 682.28 / 729.06 385.74 / 385.74 Lab / Micro Data Result Diagrams: 07/23/21 05:00 07/23/21 05:00 Labs: Laboratory Results - last 24 hr 07/21/21 04:10: Diff Path Review Reviewed 07/23/21 05:00: WBC 9.5, RBC 2.97 L, Hgb 8.5 L, Hct 25.8 L, MCV 86.9, MCH 28.6, MCHC 32.9, RDW Std Deviation 47.8 H, RDW Coeff of Tyrell 16.1 H, Plt Count 188, MPV 9.7, Immature Gran % (Auto) 2.500 H, Neut % (Auto) 90.5 H, Lymph % (Auto) 2.6 L, [place] % (Auto) 3.8, Eos % (Auto) 0.5, Baso % (Auto) 0.1, Absolute Neuts (auto) 8.6 H, Absolute Lymphs (auto) 0.25 L, Nucleated RBC % 0.4, Differential Comment SCANNED 07/23/21 05:00: Sodium 132 L, Potassium 3.5, Chloride 101, Carbon Dioxide 25.0, Anion Gap 6, BUN 41 H, Creatinine 1.90 H, Estim Creat Clear Calc 25.07, Est GFR (MDRD) Af Amer 34 L, Est GFR (MDRD) Non-Af 28 L, BUN/Creatinine Ratio 21.6 H, Glucose 128 H, Calcium 7.3 L Micro: Microbiology 07/18/21 11:20 Stool C. difficile DNA Amplification - Final 07/18/21 11:20 Stool Stool Occult Blood (ROSEMARIE) - Final Occult Blood Positive 07/11/21 15:00 Blood Culture (Wb) - Right Wrist Blood Culture - Final No growth in 5 days. 07/11/21 15:15 Blood Culture (Wb) - Right Hand Blood Culture - Final No growth in 5 days. 07/11/21 15:00 Urine Catheter - Richardson Urine Culture - Final Yeast, not Rosio albicans 07/11/21 15:25 Sputum, Induced/Lukens Gram Stain - Final 07/11/21 15:25 Sputum, Induced/Lukens Respiratory Culture - Final Coag Negative Staph 07/06/21 11:20 Sputum, Induced/Lukens Gram Stain - Final 07/06/21 11:20 Sputum, Induced/Lukens Respiratory Culture - Final Culture exhibits no growth. 06/28/21 12:01 Blood Culture (Wb) - Right Hand Blood Culture - Final No growth in 5 days. 06/28/21 11:52 Blood Culture (Wb) - Left Hand Blood Culture - Final No growth in 5 days. 06/26/21 20:35 Urine, Clean Catch Streptococcus pneumoniae Antigen (M - Final 06/26/21 20:35 Urine, Clean Catch Legionella Antigen - Final 06/28/21 16:50 Mucosa - Nasopharyngeal Influenza Types A,B Direct FA (ROSEMARIE) - Final Influenzae B 06/26/21 20:35 Urine, Clean Catch Urine Culture - Final Escherichia coli Physical Exam Const Constitutional Narrative: Intubated, sedated and mechanically ventilated. No ventilator dyssynchrony. Anasarca noted. Nutritional Appearance: morbidly obese HEENT normocephalic and head/scalp atraumatic Mouth: endotracheal tube in place Eyes PERRL and EOMs intact bilaterally Neck supple General: trachea midline and CVC in place Chest inspection of chest normal Chest: Negative for crepitus Resp Effort and Inspection: tachypneic Auscultation: diminished lung sounds; Negative for rales, rhonchi or wheezes Cardio regular rate, regular rhythm, S1 normal heart sound and S2 normal heart sound Heart Sounds: murmur GI normal to inspection, nondistended, normoactive bowel sounds GI Narrative: PEG placement Extremity General Extremity: edema; Negative for clubbing or cyanosis Skin no rashes or lesions noted Neuro Sensorium / Orientation: sedated on vent Charges/Coding Procedures Hospitalists Procedures: 22174 Critial Care 1st Hr
[2021-07-23] MEDS: Dexmedetomidine 1,000 mcg in 0.9% NS 240 mL 42.8 MCG CONT INF ×3 (07:50→19:57)
[2021-07-23] MEDS: Fluconazole 100 MG in Viaflex Bag 1 BAG 50 MG IV (10:07)
--- NOTE | 2021-07-23 10:25 | PCM.PN.ID ---
Physical Exam Narrative On vent, no fever Const no apparent distress Resp normal air movement and clear to auscultation bilaterally Effort and Inspection: mechanically ventilated Cardio regular rate and regular rhythm GI soft to palpation, non-tender and non-distended Skin no rashes or lesions noted ID ID: Route of nutrition/ use of supplements: [] Nutritional Intake: [] IV Site: [] Richardson Catheter: [] Assessment & Plan Assessment/Plan (1) CKD (chronic kidney disease) stage 3, GFR 30-59 ml/min: (2) Liver transplant recipient: (3) Hypoxia: (4) COVID-19: PLAN: Sick for approximately 3 weeks prior to admit. Covid vaccine x3. Also flu B Ag (+). On cellcept, tacro, pred, bactrim at home with h/o liver transplant. Not candidate for baricitinib due to liver transplant. On dex here and completed empiric course of cefepime. Ucx with ecoli, 80-100k. Completed 5 days of tamiflu for flu coverage. Remains intubated. Worsening OPAL, now on HD. New fevers, started on empiric vanc/eli /. O2 slowly improving. Sputum with some CoNS. Added fluc 07/19. Wbc now normal, FiO2 55%, fever resolved. Completed vanc/eli 07/22. Levophed much improved. Will follow (5) Influenza B:
[2021-07-23] MEDS: LORazepam 2 MG/ML Syringe IV (10:53)
--- NOTE | 2021-07-23 11:47 | PCM.PN.HOSP ---
Subjective Subjective Needs intubated and sedated. PEG was placed yesterday. Plan is for trach and tunneled dialysis catheter placement today. No significant overnight issues. Did require some Levophed while on dialysis yesterday but that has been discontinued. Objective Data Objective Data Vital Signs: Vital Signs Temp Pulse Resp BP Pulse Ox 97.8 F 56 L 15 90/54 L 89 07/23/21 10:30 07/23/21 11:30 07/23/21 11:00 07/23/21 11:30 07/23/21 11:00 Oxygen Flow Rate (L/min) [ 3 AMBULATING with Oxygen #1] Oxygen Flow Rate (L/min) 100 Oxygen Delivery Method Mechanical Ventilator Weight: 114.1 kg Body Mass Index (BMI) 44.5 Intake & Output: Intake and Output for Last 24 Hours 07/21/21 07/22/21 07/23/21 23:59 23:59 23:59 Intake Total 2458.73 / 2887.88 3022.28 / 3069.06 907.38 / 907.38 Output Total 1375 / 1425 2340 / 2340 110 / 110 Balance 1083.73 / 1462.88 682.28 / 729.06 797.38 / 797.38 Lab / Micro Data Result Diagrams: 07/23/21 05:00 07/23/21 05:00 Labs: Laboratory Results - last 24 hr 07/23/21 05:00: WBC 9.5, RBC 2.97 L, Hgb 8.5 L, Hct 25.8 L, MCV 86.9, MCH 28.6, MCHC 32.9, RDW Std Deviation 47.8 H, RDW Coeff of Tyrell 16.1 H, Plt Count 188, MPV 9.7, Immature Gran % (Auto) 2.500 H, Neut % (Auto) 90.5 H, Lymph % (Auto) 2.6 L, [place] % (Auto) 3.8, Eos % (Auto) 0.5, Baso % (Auto) 0.1, Absolute Neuts (auto) 8.6 H, Absolute Lymphs (auto) 0.25 L, Nucleated RBC % 0.4, Differential Comment SCANNED 07/23/21 05:00: Sodium 132 L, Potassium 3.5, Chloride 101, Carbon Dioxide 25.0, Anion Gap 6, BUN 41 H, Creatinine 1.90 H, Estim Creat Clear Calc 25.07, Est GFR (MDRD) Af Amer 34 L, Est GFR (MDRD) Non-Af 28 L, BUN/Creatinine Ratio 21.6 H, Glucose 128 H, Calcium 7.3 L Micro: Microbiology 07/18/21 11:20 Stool C. difficile DNA Amplification - Final 07/18/21 11:20 Stool Stool Occult Blood (ROSEMARIE) - Final Occult Blood Positive 07/11/21 15:00 Blood Culture (Wb) - Right Wrist Blood Culture - Final No growth in 5 days. 07/11/21 15:15 Blood Culture (Wb) - Right Hand Blood Culture - Final No growth in 5 days. 07/11/21 15:00 Urine Catheter - Richardson Urine Culture - Final Yeast, not Rosio albicans 07/11/21 15:25 Sputum, Induced/Lukens Gram Stain - Final 07/11/21 15:25 Sputum, Induced/Lukens Respiratory Culture - Final Coag Negative Staph 07/06/21 11:20 Sputum, Induced/Lukens Gram Stain - Final 07/06/21 11:20 Sputum, Induced/Lukens Respiratory Culture - Final Culture exhibits no growth. 06/28/21 12:01 Blood Culture (Wb) - Right Hand Blood Culture - Final No growth in 5 days. 06/28/21 11:52 Blood Culture (Wb) - Left Hand Blood Culture - Final No growth in 5 days. 06/26/21 20:35 Urine, Clean Catch Streptococcus pneumoniae Antigen (M - Final 06/26/21 20:35 Urine, Clean Catch Legionella Antigen - Final 06/28/21 16:50 Mucosa - Nasopharyngeal Influenza Types A,B Direct FA (ROSEMARIE) - Final Influenzae B 06/26/21 20:35 Urine, Clean Catch Urine Culture - Final Escherichia coli Physical Exam Const alert and oriented x3 Constitutional Narrative: Obese white female lying in bed, intubated and sedated, patient is calm at this time General Appearance: intubated and patient mechanically ventilated Exam Limitations: no limitations Nutritional Appearance: morbidly obese HEENT normocephalic, head/scalp atraumatic and moist oral mucous membranes Head and Scalp: normocephalic Neck Neck Narrative: Right IJ dialysis catheter in place-clean and dry Resp normal respiratory effort, no retractions and no use of accessory muscles Resp Narrative: Diffusely diminished breath sounds but no adventitious sounds noted, tachypnea noted Auscultation: diminished lung sounds; Negative for crackles, rales, rhonchi or wheezes Cardio regular rate, regular rhythm, S1 normal heart sound, S2 normal heart sound, no murmurs, no rub, no gallops, no clicks and no JVD GI normal to inspection, nondistended, normoactive bowel sounds, soft to palpation and non-distended; Negative for hepatosplenomegaly Extremity no clubbing, cyanosis or edema Extremity Narrative: left upper extremity PICC which is clean and dry Peripheral Pulses: Yes pulses 2+ throughout Skin no rashes or lesions noted, no wounds, skin turgor normal, no jaundice, no petechiae and no mottling Neuro Neuro Narrative: Intubated and sedated Sensorium / Orientation: sedated on vent Psych Psych Narrative: Appearance: intubated Assessment & Plan Assessment/Plan (1) Acute respiratory failure with hypoxia: (2) Influenza B: (3) COVID-19: (4) OPAL (acute kidney injury): (5) Shock: PLAN: Acute hypoxic respiratory failure secondary to influenza B and COVID-19/superimposed bacterial pneumonia -Patient required intubation on 07/06/2021 -Had been on BiPAP for 48 continuous straight hours with worsening oxygenation -Intubated 07/06/2021--> vent day 18 -Remains on ventilator at an FiO2 of 55% with a PEEP of 12--> SPO2 89-93% -Trach today -PEG placed today 07-22-2021 -Had been sick for approximately 3 weeks prior to admission -Was vaccinated and boosted however was immunocompromised with CellCept, tacrolimus, and prednisone -Not a baricitinib candidate secondary to liver transplant -Decadron completed -Tamiflu completed -Continue prophylactic Lovenox -Pulmonary medicine following-appreciate input -ID following-appreciate input Suspected candidal esophagitis -Continue fluconazole -Biopsies and specimens are pending -ID is following Distributive shock -Suspect multifactorial -Required pressors for short time yesterday while dialysis but these have been discontinued -Urine culture showed noncandidal yeast growth and fluconazole has been initiated--> renally dosed -Further studies are still pending -Antibiotics have been discontinued other than the fluconazole -Continue stress dose steroids for now but will wean to 50 mg twice daily -Infectious diseases following -C. difficile was negative OPAL on CKD stage IIIa secondary to ischemic ATN -Dialysis was initiated on 07/08/2021 -Last HD was 07/15/2021 -Did require Levophed during dialysis just a bit yesterday but off levo again -Tunneled dialysis catheter today -HD Tuesday/Tuesday/Tuesday -Nephrology is following and appreciate input Autoimmune hepatitis status post liver transplant -Patient remains on outpatient immunosuppression except for CellCept which is on hold per medical staff credentialing coordinator recommendations -Tacrolimus level was 3.7 and dose remains continued -Will need outpatient follow-up if patient survives acute hospitalization -Continue home rifaximin/lactulose via OG -Continue home Bactrim for PCP prophylaxis via OG -Continue home ursodiol Acute normocytic anemia -Suspect related to critical illness -Hemoccult was positive -Hemoglobin stable at 8.5 today -Blood transfusion 07/19 for hemoglobin of 6.9 -PPI 40 mg twice daily -Chemical DVT prophylaxis discontinued History of asthma -As per above Hypothyroidism -Continue home Synthroid GERD -Continue IV Protonix 40 mg twice daily Hyperlipidemia -Continue home statin Obesity -BMI is 38.8 -Complicates treatment, prognosis, outcomes, -Recommend weight loss DVT prophylaxis -SCDs -No chemoprophylaxis secondary to GI bleed CODE STATUS -Full code -Overall prognosis is likely poor given comorbidities and current status Plan will be for discharge to select after patient has a 7-day stay post tracheostomy. Charges/Coding Visit Charges Inpatient E&M: 50062 Subs Hosp L2
--- NOTE | 2021-07-23 12:00 | NURSING ---
Addendum entered by Jaqueline Carrizales 07/23/21 18:11: Patient back from OR at 1330 Original Note: Patient left unit to OR
--- NOTE | 2021-07-23 12:00 | PCM.OPRPT ---
Problems Associated Problem List Diagnoses (1) Acute respiratory failure with hypoxia: Report of Operation Date of Procedure: 07/23/21 Pre-Operative Diagnosis: respiratory failure Post-Operative Diagnosis: respiratory failure Surgery/Procedure Performed:: tracheostomy with cinthia flap Surgeon: Basilio Patel Type of Anesthesia: General Description of Procedure: on the day of the procedure, after appropriate informed consent was obtained, the patient was brought to the operating room and placed in supine position on the operating table. she was placed under general endotracheal anesthesia through her existing endotracheal tube. the neck was prepped and draped in sterile fashion and the low/transverse neck was injected with lidocaine/epinephrine. a transverse incision was made with a 15 blade. a large lipectomy was performed with an allis and the bovie. the infrahyoid strap muscles were found along their midline raphe and retracted laterally. the airway was palpated. the thyroid isthmus was elevated with a vein retractor. the pretracheal fascia was entered with the bovie and divided. the first and second tracheal rings were demarcated. the endotracheal tube was advanced. an incision was made between rings 1 and 2 and a cinthia flap was created with a curved heavy gilbert. this was sutured to the overlying skin with a 2-0 ticron. the endotracheal tube was deflated and retracted. the trachea was suctioned and a 6DCT tracheostomy was placed. the circuit was hooked up and end tidal CO2 was seen. the tracheostomy was sutured at four corners and secured with an umbilical tie. she was transferred to the ICU in stable condition.
--- NOTE | 2021-07-23 13:05 | CASEMGMT ---
EDWARD CM NOTE: Trach has been placed. Trach OP report faxed to [facility]. Call placed to [facility] and spoke w/Radha. She was made aware trach has been placed and op report has been faxed. She states they are not able to submit for pre-cert until PEEP <12 and 3 SBT's have been attempted. Per Radha, [facility] does not take admissions over the weekend. Vasile CAMPBELL RN CM
[2021-07-23 13:12] LABS: Pathologist Review Reviewed
--- NOTE | 2021-07-23 13:49 | PN.SURG_ITS ---
Subjective Subjective PEG placed yesterday patient is going for trach today. Patient will also need a tunneled dialysis catheter as she has a temporary right IJ dialysis catheter Objective Data Objective Data Vital Signs: Vital Signs Temp Pulse Resp BP Pulse Ox 98.0 F 66 16 96/50 L 87 07/23/21 13:30 07/23/21 13:30 07/23/21 13:30 07/23/21 13:30 07/23/21 13:30 Oxygen Flow Rate (L/min) [ 3 AMBULATING with Oxygen #1] Oxygen Flow Rate (L/min) 100 Oxygen Delivery Method Mechanical Ventilator Weight: 251 lb 8.759 oz Body Mass Index (BMI) 44.5 Intake & Output: Intake and Output for Last 24 Hours 07/21/21 07/22/21 07/23/21 23:59 23:59 23:59 Intake Total 2458.73 / 2887.88 3022.28 / 3069.06 972.08 / 972.08 Output Total 1375 / 1425 2340 / 2340 110 / 110 Balance 1083.73 / 1462.88 682.28 / 729.06 862.08 / 862.08 Lab / Micro Data Result Diagrams: 07/23/21 05:00 07/23/21 05:00 Labs: Laboratory Results - last 24 hr 07/22/21 03:25: Diff Path Review Reviewed 07/23/21 05:00: WBC 9.5, RBC 2.97 L, Hgb 8.5 L, Hct 25.8 L, MCV 86.9, MCH 28.6, MCHC 32.9, RDW Std Deviation 47.8 H, RDW Coeff of Tyrell 16.1 H, Plt Count 188, MPV 9.7, Immature Gran % (Auto) 2.500 H, Neut % (Auto) 90.5 H, Lymph % (Auto) 2.6 L, Greenlee % (Auto) 3.8, Eos % (Auto) 0.5, Baso % (Auto) 0.1, Absolute Neuts (auto) 8.6 H, Absolute Lymphs (auto) 0.25 L, Nucleated RBC % 0.4, Differential Comment SCANNED 07/23/21 05:00: Sodium 132 L, Potassium 3.5, Chloride 101, Carbon Dioxide 25.0, Anion Gap 6, BUN 41 H, Creatinine 1.90 H, Estim Creat Clear Calc 25.07, Est GFR (MDRD) Af Amer 34 L, Est GFR (MDRD) Non-Af 28 L, BUN/Creatinine Ratio 21.6 H, Glucose 128 H, Calcium 7.3 L Micro: Microbiology 07/18/21 11:20 Stool C. difficile DNA Amplification - Final 07/18/21 11:20 Stool Stool Occult Blood (ROSEMARIE) - Final Occult Blood Positive 07/11/21 15:00 Blood Culture (Wb) - Right Wrist Blood Culture - Final No growth in 5 days. 07/11/21 15:15 Blood Culture (Wb) - Right Hand Blood Culture - Final No growth in 5 days. 07/11/21 15:00 Urine Catheter - Richardson Urine Culture - Final Yeast, not Rosio albicans 07/11/21 15:25 Sputum, Induced/Lukens Gram Stain - Final 07/11/21 15:25 Sputum, Induced/Lukens Respiratory Culture - Final Coag Negative Staph 07/06/21 11:20 Sputum, Induced/Lukens Gram Stain - Final 07/06/21 11:20 Sputum, Induced/Lukens Respiratory Culture - Final Culture exhibits no growth. 06/28/21 12:01 Blood Culture (Wb) - Right Hand Blood Culture - Final No growth in 5 days. 06/28/21 11:52 Blood Culture (Wb) - Left Hand Blood Culture - Final No growth in 5 days. 06/26/21 20:35 Urine, Clean Catch Streptococcus pneumoniae Antigen (M - Final 06/26/21 20:35 Urine, Clean Catch Legionella Antigen - Final 06/28/21 16:50 Mucosa - Nasopharyngeal Influenza Types A,B Direct FA (ROSEMARIE) - Final Influenzae B 06/26/21 20:35 Urine, Clean Catch Urine Culture - Final Escherichia coli Physical Exam Narrative Patient is intubated and sedated. Neck Neck Narrative: Right IJ temporary dialysis catheter in place Resp Auscultation: diminished lung sounds Cardio regular rate GI soft to palpation GI Narrative: Previous chevron incision Well-Healed, PEG tube in place?no signs of infection, small skin tear near PEG Assessment & Plan Assessment/Plan (1) OPAL (acute kidney injury): (2) Malnutrition: (3) COVID-19: (4) Influenza B: (5) Acute respiratory failure with hypoxia: (6) Immunosuppressed status: PLAN: We will plan to place a right IJ possible left tunneled dialysis catheter tomorrow at 8 AM in the OR. Patient is having her right temporary IJ dialysis catheter removed today. Will discuss procedure with patient's POA/daughter?Negro as well. PEG site healing well okay to start tube feeds after trach today., N.p.o. at midnight. Lona Sampson M.D. Pager: [phone] [facility] [address] [place] [address], [facility], [address] [place] [address] Office: [phone] Charges/Coding Visit Charges Inpatient E&M: 77623 Subs Hosp L3
--- NOTE | 2021-07-23 14:07 | PN.RENAL_ITS ---
Objective Data Objective Data Vital Signs: Vital Signs Temp Pulse Resp BP Pulse Ox 98.0 F 63 17 98/57 L 88 07/23/21 13:30 07/23/21 13:45 07/23/21 13:45 07/23/21 13:45 07/23/21 13:45 Oxygen Flow Rate (L/min) [ 3 AMBULATING with Oxygen #1] Oxygen Flow Rate (L/min) 100 Oxygen Delivery Method Mechanical Ventilator Weight: 114.1 kg Body Mass Index (BMI) 44.5 Intake & Output: Intake and Output for Last 24 Hours 07/21/21 07/22/21 07/23/21 23:59 23:59 23:59 Intake Total 2458.73 / 2887.88 3022.28 / 3069.06 1043.75 / 1043.75 Output Total 1375 / 1425 2340 / 2340 110 / 110 Balance 1083.73 / 1462.88 682.28 / 729.06 933.75 / 933.75 Lab / Micro Data Result Diagrams: 07/23/21 05:00 07/23/21 05:00 Labs: Laboratory Results - last 24 hr 07/22/21 03:25: Diff Path Review Reviewed 07/23/21 05:00: WBC 9.5, RBC 2.97 L, Hgb 8.5 L, Hct 25.8 L, MCV 86.9, MCH 28.6, MCHC 32.9, RDW Std Deviation 47.8 H, RDW Coeff of Tyrell 16.1 H, Plt Count 188, MPV 9.7, Immature Gran % (Auto) 2.500 H, Neut % (Auto) 90.5 H, Lymph % (Auto) 2.6 L, Christian % (Auto) 3.8, Eos % (Auto) 0.5, Baso % (Auto) 0.1, Absolute Neuts (auto) 8.6 H, Absolute Lymphs (auto) 0.25 L, Nucleated RBC % 0.4, Differential Comment SCANNED 07/23/21 05:00: Sodium 132 L, Potassium 3.5, Chloride 101, Carbon Dioxide 25.0, Anion Gap 6, BUN 41 H, Creatinine 1.90 H, Estim Creat Clear Calc 25.07, Est GFR (MDRD) Af Amer 34 L, Est GFR (MDRD) Non-Af 28 L, BUN/Creatinine Ratio 21.6 H, Glucose 128 H, Calcium 7.3 L Micro: Microbiology 07/18/21 11:20 Stool C. difficile DNA Amplification - Final 07/18/21 11:20 Stool Stool Occult Blood (ROSEMARIE) - Final Occult Blood Positive 07/11/21 15:00 Blood Culture (Wb) - Right Wrist Blood Culture - Final No growth in 5 days. 07/11/21 15:15 Blood Culture (Wb) - Right Hand Blood Culture - Final No growth in 5 days. 07/11/21 15:00 Urine Catheter - Richardson Urine Culture - Final Yeast, not Rosio albicans 07/11/21 15:25 Sputum, Induced/Lukens Gram Stain - Final 07/11/21 15:25 Sputum, Induced/Lukens Respiratory Culture - Final Coag Negative Staph 07/06/21 11:20 Sputum, Induced/Lukens Gram Stain - Final 07/06/21 11:20 Sputum, Induced/Lukens Respiratory Culture - Final Culture exhibits no growth. 06/28/21 12:01 Blood Culture (Wb) - Right Hand Blood Culture - Final No growth in 5 days. 06/28/21 11:52 Blood Culture (Wb) - Left Hand Blood Culture - Final No growth in 5 days. 06/26/21 20:35 Urine, Clean Catch Streptococcus pneumoniae Antigen (M - Final 06/26/21 20:35 Urine, Clean Catch Legionella Antigen - Final 06/28/21 16:50 Mucosa - Nasopharyngeal Influenza Types A,B Direct FA (ROSEMARIE) - Final Influenzae B 06/26/21 20:35 Urine, Clean Catch Urine Culture - Final Escherichia coli Physical Exam Narrative Const: On vent. NAD noted Cardio: S1 S2 Resp: clear anteriorly Extremities: trace edema to b/l lower legs and hands Assessment & Plan Assessment/Plan (1) OPAL (acute kidney injury): PLAN: -OPAL is likely due to ischemic ATN related to sepsis. The patient remains oliguric -Dialysis was initiated on 07/08/2021. -On MWF dialysis schedule. -No noted renal recovery at this time. Last HD 07/22, tolerated 2 L of fluid removed. She did need pressors during HD at 10mcg. Fluid removal limited due to hypotension. On levophed - UOP remains poor, only 60ml for today. HD/UF tomorrow over 4 hours and attempt 3-4L UF as pt/bp tolerates. - Hgb dropped 6.9 and required PRBC, stool OB +. Hgb improved 9.0--> today 8.5. On pantoprazole. (2) Chronic kidney disease, stage 3a: PLAN: -Baseline serum creatinine is 1.4 mg/dL. (3) Immunosuppressed status: PLAN: -The patient is status post orthotopic liver transplantation. -On tacrolimus, mycophenolate, and prednisone. Mycophenolate is on hold as per transplant team recommendation due to COVID-19 infection. -The patient is also being followed by GI. (4) Acute respiratory failure with hypoxia: PLAN: -The patient is ventilator dependent. -She has finished treatment course for COVID-19 and influenza B. 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 -UF as possible with HD (limited by low BP). - Peg and trach placed. Planning for tunneled HD catheter placement tomorrow, temporary HD catheter removed today
[2021-07-23] MEDS: Hydrocortisone Sod Succinate 100 MG/2 ML Vial 50 MG IV ×2 (14:25→22:20)
[2021-07-23 14:26] LABS: Allen Test Positive; Base Excess -1 mmol/L (-2 to +2); Bicarbonate 26.7 mmol/L (22-26); Blood Gas Specimen Type ART; FI02 60; Mode AC; O2 Delivery Device Adult Vent; PEEP 12; PO2 57 mmHG (75-100); RR 16; SITE R Radial; SO2 83 % (95-99); Total Carbon Dioxide 29 mmol/L; Vt 450; pCO2 60.8 mmHg (35-45); pH 7.25 (7.35-7.45)
[2021-07-23] MEDS: Aspirin 81 MG TAB.CHEW GT (14:26)
[2021-07-23] MEDS: Cholecalciferol (VIT D3) 25 MCG TABLET (1,000 UNITS) 50 MCG GT (14:26)
[2021-07-23] MEDS: rifAXIMin 550 MG Tablet GT ×2 (14:26→22:19)
[2021-07-23] MEDS: Levothyroxine 88 MCG Tablet GT (14:26)
[2021-07-23] MEDS: QUEtiapine 100 MG Tablet PO ×2 (14:26→22:19)
[2021-07-23] MEDS: Lactulose 20 GM/30 ML UDC GT (14:27)
[2021-07-23] MEDS: Menthol/Lanolin/Calamine/Znox 113 GM Tube 1 APPLIC TOPICAL ×2 (14:27→22:00)
[2021-07-23] MEDS: Calcium (Elemental) 500 MG Tablet GT ×2 (14:27→22:18)
[2021-07-23] MEDS: Senna/Docusate Sodium 1 Tablet GT ×2 (14:27→22:19)
[2021-07-23] MEDS: Ursodiol 250 MG Tablet GT ×2 (14:27→22:19)
[2021-07-23] MEDS: Tacrolimus Anhydrous 1 MG Capsule 2 MG GT ×2 (14:28→22:20)
[2021-07-23] MEDS: Tacrolimus 0.5 MG Capsule GT ×2 (14:28→22:20)
[2021-07-23] MEDS: Lidocaine 1%/Epi 1:200 (30ml) 30 ML AMPUL (14:30)
[2021-07-23] MEDS: Lidocaine 1% /Epi 1:100 (50ml) 50 ML VIAL (14:30)
[2021-07-23] MEDS: NEPRO TUBE FEED 1,000 ML 25 ML GT (14:44)
--- NOTE | 2021-07-23 17:08 | NURSING ---
This nurse walked into patients room at 1708 and patient was covered in blood. New trach bleeding profusely. This RN and Susannah Xie RN began holding immediate pressure to the neck/trach area. Dr. Patel paged and notified at 1710, stated he is on his way in. Dr. Whitlock paged at 1715 to come to bedside until Dr. Patel arrives. Dr. Whitlock at bedside at 1720. Dr. Patel at bedside at 1725. Dr. Patel took over holding pressure to the neck. RT also at bedside. Decision made to take patient back to OR. While Dr. Patel held pressure this RN notified Negro, POA and daughter to give her a update. Dr. Emerson also notified at 1745. Patient left unit to OR at 1800.
--- NOTE | 2021-07-23 18:59 | PN_ITS ---
Objective Data Objective Data Vital Signs: Vital Signs Temp Pulse Resp BP Pulse Ox 97.7 F L 75 16 113/61 100 07/23/21 16:00 07/23/21 18:00 07/23/21 18:00 07/23/21 18:00 07/23/21 18:00 Oxygen Flow Rate (L/min) [ 3 AMBULATING with Oxygen #1] Oxygen Flow Rate (L/min) 100 Oxygen Delivery Method Mechanical Ventilator Weight: 114.1 kg Body Mass Index (BMI) 44.5 Intake & Output: Intake and Output for Last 24 Hours 07/21/21 07/22/21 07/23/21 23:59 23:59 23:59 Intake Total 2458.73 / 2887.88 3022.28 / 3069.06 1423.72 / 1423.72 Output Total 1375 / 1425 2340 / 2340 110 / 110 Balance 1083.73 / 1462.88 682.28 / 729.06 1313.72 / 1313.72 Lab / Micro Data Result Diagrams: 07/23/21 05:00 07/23/21 05:00 Labs: Laboratory Results - last 24 hr 07/22/21 03:25: Diff Path Review Reviewed 07/23/21 05:00: WBC 9.5, RBC 2.97 L, Hgb 8.5 L, Hct 25.8 L, MCV 86.9, MCH 28.6, MCHC 32.9, RDW Std Deviation 47.8 H, RDW Coeff of Tyrell 16.1 H, Plt Count 188, MPV 9.7, Immature Gran % (Auto) 2.500 H, Neut % (Auto) 90.5 H, Lymph % (Auto) 2.6 L, Mingo % (Auto) 3.8, Eos % (Auto) 0.5, Baso % (Auto) 0.1, Absolute Neuts (auto) 8.6 H, Absolute Lymphs (auto) 0.25 L, Nucleated RBC % 0.4, Differential Comment SCANNED 07/23/21 05:00: Sodium 132 L, Potassium 3.5, Chloride 101, Carbon Dioxide 25.0, Anion Gap 6, BUN 41 H, Creatinine 1.90 H, Estim Creat Clear Calc 25.07, Est GFR (MDRD) Af Amer 34 L, Est GFR (MDRD) Non-Af 28 L, BUN/Creatinine Ratio 21.6 H, Glucose 128 H, Calcium 7.3 L Micro: Microbiology 07/18/21 11:20 Stool C. difficile DNA Amplification - Final 07/18/21 11:20 Stool Stool Occult Blood (ROSEMARIE) - Final Occult Blood Positive 07/11/21 15:00 Blood Culture (Wb) - Right Wrist Blood Culture - Final No growth in 5 days. 07/11/21 15:15 Blood Culture (Wb) - Right Hand Blood Culture - Final No growth in 5 days. 07/11/21 15:00 Urine Catheter - Richardson Urine Culture - Final Yeast, not Rosio albicans 07/11/21 15:25 Sputum, Induced/Lukens Gram Stain - Final 07/11/21 15:25 Sputum, Induced/Lukens Respiratory Culture - Final Coag Negative Staph 07/06/21 11:20 Sputum, Induced/Lukens Gram Stain - Final 07/06/21 11:20 Sputum, Induced/Lukens Respiratory Culture - Final Culture exhibits no growth. 06/28/21 12:01 Blood Culture (Wb) - Right Hand Blood Culture - Final No growth in 5 days. 06/28/21 11:52 Blood Culture (Wb) - Left Hand Blood Culture - Final No growth in 5 days. 06/26/21 20:35 Urine, Clean Catch Streptococcus pneumoniae Antigen (M - Alison l 06/26/21 20:35 Urine, Clean Catch Legionella Antigen - Final 06/28/21 16:50 Mucosa - Nasopharyngeal Influenza Types A,B Direct FA (ROSEMARIE) - Final Influenzae B 06/26/21 20:35 Urine, Clean Catch Urine Culture - Final Escherichia coli ABG Data ABG results: ABG 07/23/21 14:17 Specimen Type ART Sample Site R Radial pH 7.25 L Bicarbonate Actual 26.7 H Total CO2 29 Base Excess -1 O2 Saturation 83 L O2 % 60 ABG pCO2 60.8 H ABG pO2 57 L Edgar Test Positive Respiration Rate 16 O2 Delivery Device Adult Vent Vent Mode AC Tidal Volume 450 POC PEEP 12 Physical Exam HEENT HEENT Narrative: [address] hemorrhage from tracheostomy. Assessment & Plan Assessment/Plan (1) Acute respiratory failure with hypoxia: PLAN: 61 year old female POD#0 s/p tracheostomy. post operative hemorrhage -intraoperative and postoperative course unremarkable -nurse was out of room for roughly 15 minutes, returned to [facility] clot on patient's chest. did not natalia with pressure. -to OR for exploration
--- NOTE | 2021-07-23 19:03 | PCM.OPRPT ---
Problems Associated Problem List Diagnoses (1) Post-operative haemorrhage: Report of Operation Date of Procedure: 07/23/21 Pre-Operative Diagnosis: post tracheostomy hemorrhage Post-Operative Diagnosis: post tracheostomy hemorrhage Surgery/Procedure Performed:: control / exploration of post tracheostomy hemorrhage Surgeon: Basilio Patel Description of Procedure: the patient was brought urgently from the ICU to the operating room. pressure on the neck was maintained and the anesthesia circuit was hooked up. her trach sutures were cut and her tracheostomy was removed while simultaneously suctioning her trachea. a superior skin bleeder was seen and pressure was applied - there was no bleeding during the exchange. a 5.5 endotracheal tube was placed in the trachea and immediately inflated. she desaturated to the 60s initially; when the endotracheal tube was repositioned, she saturated 100%. there were numerous anterior jugular veins that were double tied during the original case, these were explored and found to be intact and not the source. a solo superior skin bleed was cauterized, tied and a figure of 8 stitch was placed with a 4-0 vicryl. the remainder of the tracheostomy was explored and suctioned. there was no further bleeding. PEEP was increased and a valsalva was performed; hemostasis was achieved. the endotracheal tube was removed, the trachea was suctioned and found to be dry. a 6DCT tracheostomy tube was replaced and sutured into place. an umbilical tie was also placed. surgicel was placed superiorly. she was transferred to the ICU in stable condition.
[2021-07-23] MEDS: Atorvastatin Calcium 10 MG Tablet GT (22:19)
[2021-07-23] MEDS: LORazepam 2 MG/ML Syringe 0.5 MG IV (22:56)
[2021-07-23 23:35] LABS: Hematocrit 22.4 % (37-47); Hemoglobin 7.4 g/dL (12.0-15.0)
[2021-07-24] VITALS (52 sets, daily range): BP systolic 72–136; BP diastolic 47–73; PULSE 50–103; RESP 12–42; TEMP 34.9–36.6; O2SAT 87–98
[2021-07-24] MEDS: Dexmedetomidine 1,000 mcg in 0.9% NS 240 mL 42.8 MCG CONT INF (01:48)
[2021-07-24 04:40] LABS: Anion Gap 7 (5-15); BUN 51 mg/dL (7-18); BUN/Creat Ratio 21.1 RATIO (10-20); Calcium,Total 7.3 mg/dL (8.5-10.1); Chloride 104 mmol/L (98-107); Creatinine, Serum 2.42 mg/dL (0.55-1.02); EST Glomerular Filtration Rate 22 mL/min (>60); Est Glom Filt Rate - Afr Amer 26 mL/min (>60); Estimated Creatinine Clearance 18.82 ml/min; Glucose 170 mg/dL (74-106); Potassium 4.4 mmol/L (3.5-5.1); Sodium Level 134 mmol/L (136-145)
[2021-07-24 04:52] LABS: Absolute Lymphocyte Count 0.18 X10^3/uL (0.83-4.51); Absolute Neutrophil Count 7.3 X10^3/uL (2.0-7.7); Basophil# 0.01 X10^3/uL; Basophil% 0.1 % (0-1); Eosinophil# 0.01 X10^3/uL; Eosinophils% 0.1 % (0-5); Hematocrit 21.5 % (37-47); Hemoglobin 6.9 g/dL (12.0-15.0); Lymphocyte # 0.18 X10^3/ul (0.83-4.51); Lymphocyte % 2.3 % (19-41); Mean Corp Hgb Conc 32.1 g/dL (32-36); Mean Corpuscular Hgb 28.5 pg (27.0-32.0); Mean Corpuscular Volume 88.8 fL (81-99); Mean Platelet Vol. 9.5 fl (6.2-12.0); Monocyte# 0.19 X10^3/uL; Monocyte% 2.4 % (0-10); NRBC Flagged by Analyzer 0 % (0-5); Neutrophil # 7.31 X10^3/uL (2.7-7.7); Neutrophil % 93.8 % (47-70); POSITIVE DIFFERENTIAL YES; Platelet Count 169 K/mm3 (150-450); RBC Distribution Width CV 16.1 % (11.6-14.6); RBC Distribution Width SD 49.6 fl (35.1-43.9); Red Blood Count 2.42 M/mm3 (4.2-5.4); White Blood Count 7.8 K/mm3 (4.4-11.0)
[2021-07-24 04:53] LABS: Differential Indicated SCAN CRITERIA MET
[2021-07-24 05:06] LABS: Differential Comment SCANNED
--- NOTE | 2021-07-24 06:38 | PN.CC_ITS ---
Assessment & Plan Assessment/Plan (1) COVID-19: (2) Influenza B: PLAN: RECOMMENDATIONS: 1. Continue mechanical ventilation and wean FiO2 for saturations greater than 90%. 2. Continue antimicrobials and empiric antifungal coverage per infectious disease. 3. Hemodialysis following placement of tunneled hemodialysis line 4. Continue SCDs for DVT prophylaxis in light of possible GI blood loss. 5. Continue Protonix to twice daily. 6. Potentially wean stress dose steroids following surgery 7. Potentially wean fentanyl and Precedex following operative procedures 8. Transfuse 2 units packed red blood cells IMPRESSIONS: 1. Acute hypoxemic respiratory failure secondary to COVID-19/influenza B The patient was initially admitted to the hospital on June 27 and subsequently tested positive for both COVID-19 and influenza. The patient is vaccinated at her baseline. However, she is immunosuppressed due to a history of a liver transplant. The patient's oxygenation status progressively worsened over the course of her hospitalization, ultimately culminating in intubation on July 06. She has completed a treatment course of Tamiflu. She has been continued on Decadron and prophylactic Lovenox. Infectious disease is following. Patient has been placed on empiric antibiotics and antifungals. Continue to wean FiO2 to maintain saturations at or above 90%. Ongoing volume optimization through hemodialysis per nephrology recommendations. Patient with tracheostomy yesterday. Some bleeding complications noted. 2. Distributive shock/relative adrenal insufficiency Likely multifactorial with underlying infection and hemodynamic effects of sedative medication use contributing. Continue vasopressor support, if needed, as ordered to maintain a mean arterial pressure at or above 65 mmHg. Continue stress dose steroids until not requiring pressors. Anticipate holding stress dose at current levels able to tolerate significant volume removal with hemodialysis. Patient with an element of acute blood loss anemia following tracheostomy. Blood transfusions have been ordered. 3. Acute kidney injury Likely secondary to ischemic ATN in the setting of #1. Nephrology is currently following to assist with hemodialysis needs and volume removal. Patient is dialysis dependent at this time. Still with minimal urine output 4. Chronic baseline immunosuppressed state secondary to liver transplantation Continue baseline outpatient immunosuppressive regimen, with the exception of CellCept. Liver function profile remains within normal limits. Tacrolimus levels were within therapeutic limits. GI is following 5. Anemia Likely secondary to GI blood loss. Stool for occult blood was positive earlier in the hospitalization. Patient with good response to blood transfusions. Check H&H daily. Increased dosing frequency of Protonix to twice daily. 6. Morbid obesity/asthma/hypothyroidism/hyperlipidemia/GERD Complicates care, management, recovery and prognosis. Continue home medications as indicated. Poor overall prognosis. TIME: 41 minutes of critical care time, independent of procedures, was spent add ressing the patient's acute hypoxemic respiratory failure secondary to COVID- 19/influenza B, distributive shock, acute kidney injury, anemia, review of all data and collaboration with the care team. Subjective Subjective Patient did okay overnight. Patient did have complications with bleeding from the trach site overnight and was evaluated by ENT. Patient has had some mild hypotension requiring reinitiation of minimal Levophed. Patient continues to have episodes of vent dyssynchrony leading to peak airway pressure issues. No significant airway obstruction from clots have been noted. Objective Data Objective Data Vital Signs: Vital Signs Temp Pulse Resp BP Pulse Ox 36.5 C L 61 21 H 109/64 95 07/24/21 04:00 07/24/21 04:00 07/24/21 04:20 07/24/21 04:00 07/24/21 04:00 Oxygen Flow Rate (L/min) [ 3 AMBULATING with Oxygen #1] Oxygen Flow Rate (L/min) 100 Oxygen Delivery Method Mechanical Ventilator Weight: 114.1 kg Body Mass Index (BMI) 44.5 Intake & Output: Intake and Output for Last 24 Hours 07/22/21 07/23/21 07/24/21 23:59 23:59 23:59 Intake Total 3022.28 / 3069.06 1878.21 / 1942.89 392.00 / 392.00 Output Total 2340 / 2340 255 / 273 70 / 70 Balance 682.28 / 729.06 1623.21 / 1669.89 322.00 / 322.00 Lab / Micro Data Result Diagrams: 07/24/21 04:20 07/24/21 04:20 Labs: Laboratory Results - last 24 hr 07/22/21 03:25: Diff Path Review Reviewed 07/23/21 23:27: Hgb 7.4 L, Hct 22.4 L 07/24/21 04:20: WBC 7.8, RBC 2.42 L, Hgb 6.9 L, Hct 21.5 L, MCV 88.8, MCH 28.5, MCHC 32.1, RDW Std Deviation 49.6 H, RDW Coeff of Tyrell 16.1 H, Plt Count 169, MPV 9.5, Immature Gran % (Auto) 1.300 H, Neut % (Auto) 93.8 H, Lymph % (Auto) 2.3 L, [place] % (Auto) 2.4, Eos % (Auto) 0.1, Baso % (Auto) 0.1, Absolute Neuts (auto) 7.3, Absolute Lymphs (auto) 0.18 L, Nucleated RBC % 0, Differential Comment SCANNED 07/24/21 04:20: Sodium 134 L, Potassium 4.4, Chloride 104, Carbon Dioxide 23.0, Anion Gap 7, BUN 51 H, Creatinine 2.42 H, Estim Creat Clear Calc 18.82, Est GFR (MDRD) Af Amer 26 L, Est GFR (MDRD) Non-Af 22 L, BUN/Creatinine Ratio 21.1 H, Glucose 170 H, Calcium 7.3 L 07/24/21 06:18: Crossmatch See Detail Micro: Microbiology 07/18/21 11:20 Stool C. difficile DNA Amplification - Final 07/18/21 11:20 Stool Stool Occult Blood (ROSEMARIE) - Final Occult Blood Positive 07/11/21 15:00 Blood Culture (Wb) - Right Wrist Blood Culture - Final No growth in 5 days. 07/11/21 15:15 Blood Culture (Wb) - Right Hand Blood Culture - Final No growth in 5 days. 07/11/21 15:00 Urine Catheter - Richardson Urine Culture - Final Yeast, not Rosio albicans 07/11/21 15:25 Sputum, Induced/Lukens Gram Stain - Final 07/11/21 15:25 Sputum, Induced/Lukens Respiratory Culture - Final Coag Negative Staph 07/06/21 11:20 Sputum, Induced/Lukens Gram Stain - Final 07/06/21 11:20 Sputum, Induced/Lukens Respiratory Culture - Final Culture exhibits no growth. 06/28/21 12:01 Blood Culture (Wb) - Right Hand Blood Culture - Final No growth in 5 days. 06/28/21 11:52 Blood Culture (Wb) - Left Hand Blood Culture - Final No growth in 5 days. 06/26/21 20:35 Urine, Clean Catch Streptococcus pneumoniae Antigen (M - Final 06/26/21 20:35 Urine, Clean Catch Legionella Antigen - Final 06/28/21 16:50 Mucosa - Nasopharyngeal Influenza Types A,B Direct FA (ROSEMARIE) - Final Influenzae B 06/26/21 20:35 Urine, Clean Catch Urine Culture - Final Escherichia coli ABG Data ABG results: ABG 07/23/21 14:17 Specimen Type ART Sample Site R Radial pH 7.25 L Bicarbonate Actual 26.7 H Total CO2 29 Base Excess -1 O2 Saturation 83 L O2 % 60 ABG pCO2 60.8 H ABG pO2 57 L Edgar Test Positive Respiration Rate 16 O2 Delivery Device Adult Vent Vent Mode AC Tidal Volume 450 POC PEEP 12 Physical Exam Const Constitutional Narrative: Intubated, sedated and mechanically ventilated. No ventilator dyssynchrony. Anasarca noted. Nutritional Appearance: morbidly obese HEENT normocephalic and head/scalp atraumatic Mouth: endotracheal tube in place Eyes PERRL and EOMs intact bilaterally Neck supple General: trachea midline, tracheostomy present and other Slight bruising noted around tracheostomy. Shiley 6?0 trach Chest inspection of chest normal Chest: Negative for crepitus Resp Effort and Inspection: tachypneic Auscultation: diminished lung sounds; Negative for rales, rhonchi or wheezes Cardio regular rate, regular rhythm, S1 normal heart sound and S2 normal heart sound Heart Sounds: murmur GI normal to inspection, nondistended, normoactive bowel sounds GI Narrative: PEG clean, dry and intact Extremity General Extremity: edema; Negative for clubbing or cyanosis Skin no rashes or lesions noted Neuro Sensorium / Orientation: sedated on vent Charges/Coding Procedures Hospitalists Procedures: 91884 Critial Care 1st Hr
[2021-07-24] MEDS: CHLORHEXIDINE GLUC 2% CLOTH 1 EACH TOWELETTE TOPICAL (06:46)
[2021-07-24] MEDS: Chlorhexidine 15 ML PO ×2 (07:32→21:59)
[2021-07-24] MEDS: Menthol/Lanolin/Calamine/Znox 113 GM Tube 1 APPLIC TOPICAL ×2 (07:32→21:58)
--- NOTE | 2021-07-24 08:10 | NURSING ---
to or for tunneled dialysis cath
[2021-07-24] MEDS: Lidocaine 1% (30 ml sdv) 30 ML Vial (08:40)
[2021-07-24] MEDS: Heparin 10,000 UNITS/10 ML Vial 10000 UNITS (08:40)
[2021-07-24] MEDS: Bupivacaine 0.25% 30 ML Vial (08:42)
--- NOTE | 2021-07-24 08:50 | PCM.OPRPT ---
Report of Operation Date of Procedure: 07/24/21 Pre-Operative Diagnosis: Acute kidney injury Post-Operative Diagnosis: Same Surgery/Procedure Performed:: Insertion of right IJ tunneled dialysis catheter Use of fluoroscopy Use of ultrasound Surgeon: Lona Sampson Type of Anesthesia: MAC/Supplemental Anesthesiologist: Eder Christy Special Medications: Ancef 2 g IV x1 Specimen's removed: None Estimated Blood Loss (mL): <10 cc Description of Procedure: After informed consent was given, the patient was brought to the operating room and placed in the supine position from the ICU. Appropriate time out protocol was followed. She was then given IV conscious sedation for anesthesia. The patient's right upper chest and neck were then prepped with a surgical skin preparation and sterile surgical drapes were placed. After proper landmarks were ascertained, the skin at the upper right chest area was then infiltrated with 1:1 mixture of 1% lidocaine with epinephrine and 0.5% maricaine. A needle trocar was then inserted into the right internal jugular vein with ultrasound guidance-multiple vessels were viewed with u/s and the right IJ was chosen-- and there was good aspiration of venous blood. A wire was then threaded into the needle trocar and this was visualized under fluoroscopy to ensure that the wire was in the superior vena cava. Once this was done, then the needle trocar was removed. A small incision was made with an 11 blade knife at the wire entrance site. The dilator x2 with the introducer sheath attached was then placed over the wire into the right internal jugular vein via the Seldinger technique and this was visualized under fluoroscopy. Next the introducer and sheath were in proper position as visualized by fluoroscopy. The location of the cuffed was estimated on the skin, an incision was made with a 15 blade scalpel. The 14.5 Fr x 19 cm Palindrome dual lumen (Lot [id number] reference [id number]) was tunneled from the chest incision to the right neck incision. The sheath was removed. The catheter was placed through the introducer and was positioned with its tip at the junction of the superior vena cava and the right atrium as visualized under fluoroscopy. The cuff of the catheter was in the subcutaneous tissue. The catheter flushed and papo well with saline. Catheter was also flushed with 1.6 cc of 1-10,000 of heparin. Hemostasis was assured. Silver dressing was placed at the catheter exit site. Catheter was sutured with 3-0 nylon sutures. The neck incision was sutured with interrupted 3-0 Vicryl interrupted sutures x2 and Steri-Strips were placed. A large OpSite was placed over the catheter site and a small OpSite over the neck incision. The patient tolerated the procedure well. Taken back to the ICU in stable condition. Chest x-ray ordered Grafts/Implants Used: 14.5 Fr x 19 cm Palindrome dual lumen (Lot [id number] reference [id number]
[2021-07-24] MEDS: Dexmedetomidine 1,000 mcg in 0.9% NS 240 mL 43.6 MCG CONT INF ×3 (09:24→21:30)
--- NOTE | 2021-07-24 09:40 | CASEMGMT ---
Addendum entered by Mariaelena Cox 07/24/21 16:40: TC and left message with Radha of documentation that is being faxed. Requested call back. Faxed updated clinicals at this time. Addendum entered by Mariaelena Cox 07/24/21 15:33: TC to Radha at [facility] again, left vm to see outcome from speaking with the doctor. Requested call back. Addendum entered by Mariaelena Cox 07/24/21 11:57: TC to Radha at [facility] to update on pt. Made aware that pt PEEP is 10 and SBT was attempted at 11 and will reattempt at 1p and 3p. Requesting precert to be submitted today after third trial with hopes of admission to facility on Tuesday. She states she needs to speak with the doctor and she will call this RN SHAUNA back. Original Note: EDWARD VILLATORO participated in ICU rounds this am. As of now, pt PEEP is 10 and SPT will be attempted at 1100,1300 and 1500. EDWARD VILLATORO to follow to request precert.
--- NOTE | 2021-07-24 10:10 | RAD_ITS ---
STUDY: X-RAY CHEST REASON FOR EXAM: Female, 61 years old. Dialysis catheter -- ICU portable-- TECHNIQUE: Single AP portable view of the chest. COMPARISON: Comparison is made with prior study dated 07/09/2021. FINDINGS: The tracheostomy tube is seen. The tip is at 5.6 cm proximal to the margarita. A right-sided dialysis catheter has been placed with the tip at the junction of the superior vena cava and right atrium. A left-sided PICC line catheter is seen with the tip in the proximal portion of the superior vena cava. There is evidence of diffuse bilateral airspace disease more prominent in the right hemithorax. There is no demonstrated pleural abnormality. Normal size heart. Normal mediastinum and rebeca. Normal visualized pulmonary arteries. Normal visualized aortic arch and descending thoracic aorta. Normal visualized thoracic spine. Normal visualized ribs, clavicles, and shoulders. There is no demonstrated abnormality of the visualized soft tissue structures of the upper abdomen. RAD/CXR for Line Placement IMPRESSION: The tip of the right dialysis catheter is at the junction of the superior vena cava and right atrium. Bilateral airspace disease. Electronically Signed: Cachorro Fox MD at 10:33 EST ,
[2021-07-24] MEDS: Polyethylene Glycol 3350 17 GM PACKET GT (10:22)
[2021-07-24] MEDS: QUEtiapine 100 MG Tablet PO ×2 (10:22→22:08)
[2021-07-24] MEDS: Levothyroxine 88 MCG Tablet GT (10:23)
[2021-07-24] MEDS: Ferrous Gluconate 324 MG Tablet PO (10:23)
[2021-07-24] MEDS: Calcium (Elemental) 500 MG Tablet GT ×2 (10:23→22:09)
[2021-07-24] MEDS: Aspirin 81 MG TAB.CHEW GT (10:23)
[2021-07-24] MEDS: Smz/Tmp Ds Tablet 1 TABLET GT (10:23)
[2021-07-24] MEDS: Lactulose 20 GM/30 ML UDC GT (10:23)
[2021-07-24] MEDS: Tacrolimus 0.5 MG Capsule GT ×2 (10:24→22:11)
[2021-07-24] MEDS: Tacrolimus Anhydrous 1 MG Capsule 2 MG GT ×2 (10:24→22:12)
[2021-07-24] MEDS: Senna/Docusate Sodium 1 Tablet GT ×2 (10:25→22:08)
[2021-07-24] MEDS: Hydrocortisone Sod Succinate 100 MG/2 ML Vial 50 MG IV ×2 (10:26→22:10)
[2021-07-24] MEDS: Cholecalciferol (VIT D3) 25 MCG TABLET (1,000 UNITS) 50 MCG GT (10:28)
[2021-07-24] MEDS: Ursodiol 250 MG Tablet GT ×2 (10:28→22:02)
[2021-07-24] MEDS: rifAXIMin 550 MG Tablet GT ×2 (10:31→22:12)
--- NOTE | 2021-07-24 10:40 | PCM.PN.HOSP ---
Subjective Subjective Patient with bleeding from her trach site last evening. Was taken back to the OR and a small bleeding vessel was found. Hemoglobin has dropped this morning to 6.9. Transfusion in progress. FiO2 is at 65% however PEEP has been dropped to 10. On Levophed at 1 benny per minute. Objective Data Objective Data Vital Signs: Vital Signs Temp Pulse Resp BP Pulse Ox 95.4 F L 56 L 12 87/51 L 88 07/24/21 09:53 07/24/21 09:53 07/24/21 09:53 07/24/21 09:53 07/24/21 09:30 Oxygen Flow Rate (L/min) [ 3 AMBULATING with Oxygen #1] Oxygen Flow Rate (L/min) 100 Oxygen Delivery Method Mechanical Ventilator Weight: 116.3 kg Body Mass Index (BMI) 44.5 Intake & Output: Intake and Output for Last 24 Hours 07/22/21 07/23/21 07/24/21 23:59 23:59 23:59 Intake Total 3022.28 / 3069.06 1878.21 / 1942.89 800.82 / 800.82 Output Total 2340 / 2340 255 / 273 70 / 70 Balance 682.28 / 729.06 1623.21 / 1669.89 730.82 / 730.82 Lab / Micro Data Result Diagrams: 07/24/21 04:20 07/24/21 04:20 Labs: Laboratory Results - last 24 hr 07/18/21 07:30: Crossmatch See Detail 07/22/21 03:25: Diff Path Review Reviewed 07/23/21 23:27: Hgb 7.4 L, Hct 22.4 L 07/24/21 04:20: WBC 7.8, RBC 2.42 L, Hgb 6.9 L, Hct 21.5 L, MCV 88.8, MCH 28.5, MCHC 32.1, RDW Std Deviation 49.6 H, RDW Coeff of Tyrell 16.1 H, Plt Count 169, MPV 9.5, Immature Gran % (Auto) 1.300 H, Neut % (Auto) 93.8 H, Lymph % (Auto) 2.3 L, [place] % (Auto) 2.4, Eos % (Auto) 0.1, Baso % (Auto) 0.1, Absolute Neuts (auto) 7.3, Absolute Lymphs (auto) 0.18 L, Nucleated RBC % 0, Differential Comment SCANNED 07/24/21 04:20: Sodium 134 L, Potassium 4.4, Chloride 104, Carbon Dioxide 23.0, Anion Gap 7, BUN 51 H, Creatinine 2.42 H, Estim Creat Clear Calc 18.82, Est GFR (MDRD) Af Amer 26 L, Est GFR (MDRD) Non-Af 22 L, BUN/Creatinine Ratio 21.1 H, Glucose 170 H, Calcium 7.3 L 07/24/21 06:18: Blood Type A POSITIVE, Antibody Screen NEGATIVE, Crossmatch See Detail Micro: Microbiology 07/18/21 11:20 Stool C. difficile DNA Amplification - Final 07/18/21 11:20 Stool Stool Occult Blood (BENNY) - Final Occult Blood Positive 07/11/21 15:00 Blood Culture (Wb) - Right Wrist Blood Culture - Final No growth in 5 days. 07/11/21 15:15 Blood Culture (Wb) - Right Hand Blood Culture - Final No growth in 5 days. 07/11/21 15:00 Urine Catheter - Richardson Urine Culture - Final Yeast, not Rosio albicans 07/11/21 15:25 Sputum, Induced/Lukens Gram Stain - Final 07/11/21 15:25 Sputum, Induced/Lukens Respiratory Culture - Final Coag Negative Staph 07/06/21 11:20 Sputum, Induced/Lukens Gram Stain - Final 07/06/21 11:20 Sputum, Induced/Lukens Respiratory Culture - Final Culture exhibits no growth. 06/28/21 12:01 Blood Culture (Wb) - Right Hand Blood Culture - Final No growth in 5 days. 06/28/21 11:52 Blood Culture (Wb) - Left Hand Blood Culture - Final No growth in 5 days. 06/26/21 20:35 Urine, Clean Catch Streptococcus pneumoniae Antigen (M - Final 06/26/21 20:35 Urine, Clean Catch Legionella Antigen - Final 06/28/21 16:50 Mucosa - Nasopharyngeal Influenza Types A,B Direct FA (BENNY) - Final Influenzae B 06/26/21 20:35 Urine, Clean Catch Urine Culture - Final Escherichia coli ABG Data ABG results: ABG 07/23/21 14:17 Specimen Type ART Sample Site R Radial pH 7.25 L Bicarbonate Actual 26.7 H Total CO2 29 Base Excess -1 O2 Saturation 83 L O2 % 60 ABG pCO2 60.8 H ABG pO2 57 L Edgar Test Positive Respiration Rate 16 O2 Delivery Device Adult Vent Vent Mode AC Tidal Volume 450 POC PEEP 12 Radiography Diagnostic Testing: Radiology Impression Chest X-Ray 07/24/21 10:10 IMPRESSION: The tip of the right dialysis catheter is at the junction of the superior vena cava and right atrium. Bilateral airspace disease. Electronically Signed: Cachorro Fox MD at 10:33 EST , Physical Exam Const alert and oriented x3 Constitutional Narrative: Obese white female lying in bed, trached and sedated, patient is calm at this time General Appearance: intubated and patient mechanically ventilated Exam Limitations: no limitations Nutritional Appearance: morbidly obese HEENT normocephalic, head/scalp atraumatic and moist oral mucous membranes Head and Scalp: normocephalic Eyes Eyes Narrative: No scleral icterus Neck Neck Narrative: Right temporary IJ dialysis catheter has been removed and dressing in place, DCT [address] and sutured, dried blood around trach site but no signs of bleeding at this time, suction catheter passes with ease Resp normal respiratory effort, no retractions and no use of accessory muscles Resp Narrative: Diffusely diminished breath sounds but no adventitious sounds noted, tachypnea noted Auscultation: diminished lung sounds; Negative for crackles, rales, rhonchi or wheezes Cardio regular rate, regular rhythm, S1 normal heart sound, S2 normal heart sound, no murmurs, no rub, no gallops, no clicks and no JVD GI normal to inspection, nondistended, normoactive bowel sounds, soft to palpation and non-distended; Negative for hepatosplenomegaly Extremity no clubbing, cyanosis or edema Extremity Narrative: left upper extremity PICC which is clean and dry Peripheral Pulses: Yes pulses 2+ throughout Neuro Neuro Narrative: Trached and sedated Sensorium / Orientation: sedated on vent Psych Psych Narrative: Appearance: intubated Assessment & Plan Assessment/Plan (1) Acute respiratory failure with hypoxia: (2) Influenza B: (3) COVID-19: (4) OPAL (acute kidney injury): (5) Shock: PLAN: Acute hypoxic respiratory failure secondary to influenza B and COVID-19/superimposed bacterial pneumonia -Patient required intubation on 07/06/2021 -Had been on BiPAP for 48 continuous straight hours with worsening oxygenation -Intubated 07/06/2021--> vent day 18 -Remains on ventilator at an FiO2 of 65% with a PEEP of 10--> SPO2 88-90% -Trach done 07/23/2021 with some postoperative bleeding and return to the OR for cauterization of a bleeding vessel -PEG placed today 07-22-2021 -Plan is to start breathing trials -Had been sick for approximately 3 weeks prior to admission -Was vaccinated and boosted however was immunocompromised with CellCept, tacrolimus, and prednisone -Not a baricitinib candidate secondary to liver transplant -Decadron completed -Tamiflu completed -Continue prophylactic Lovenox -Pulmonary medicine following-appreciate input -ID following-appreciate input Suspected candidal esophagitis -Continue fluconazole -Biopsies and specimens remain pending -ID is following Distributive shock -Suspect multifactorial -Patient is on 1 mcg/min of Levophed since her bleeding episode last evening but this is being weaned I suspect that should be off by the end of the day -Intermittent hypotension should improve as we are able to wean sedation with trach now being in place -Urine culture showed noncandidal yeast growth and fluconazole has been initiated--> renally dosed -Further studies are still pending -Antibiotics have been discontinued other than the fluconazole -Continue stress dose steroids 50 mg twice daily -Would taper slowly but not until she remains off Levophed for at least 24 to 48 hours -Infectious diseases following -C. difficile was negative OPAL on CKD stage IIIa secondary to ischemic ATN -Dialysis was initiated on 07/08/2021 -Last HD was 07/15/2021 -Tunneled dialysis catheter placed on 07/24/2021 -HD Tuesday/Tuesday/Tuesday -Nephrology is following and appreciate input Autoimmune hepatitis status post liver transplant -Patient remains on outpatient immunosuppression except for CellCept which is on hold per spiritual care coordinator recommendations -Tacrolimus level was 3.7 and dose remains continued -Will need outpatient follow-up if patient survives acute hospitalization -Continue home rifaximin/lactulose via OG -Continue home Bactrim for PCP prophylaxis via OG -Continue home ursodiol Acute normocytic anemia -Suspect related to critical illness -Hemoccult was positive 07/18/2021 -Hemoglobin down today to 6.9 with bleeding yesterday -Blood transfusion 07/19 for hemoglobin of 6.9--> 2 units -Blood transfusion 07/24 for hemoglobin of 6.9 after trach site bleeding--> 2 units -PPI 40 mg twice daily -Chemical DVT prophylaxis discontinued History of asthma -As per above Hypothyroidism -Continue home Synthroid GERD -Continue IV Protonix 40 mg twice daily Hyperlipidemia -Continue home statin Obesity -BMI is 38.8 -Complicates treatment, prognosis, outcomes, -Recommend weight loss DVT prophylaxis -SCDs -No chemoprophylaxis secondary to GI bleed CODE STATUS -Full code -Overall prognosis is likely poor given comorbidities and current status Charges/Coding Visit Charges Inpatient E&M: 48303 Subs Hosp L2
[2021-07-24] MEDS: NEPRO TUBE FEED 1,000 ML 25 ML GT (11:16)
--- NOTE | 2021-07-24 11:18 | PN.RENAL_ITS ---
Subjective Subjective No overnight events. Sedated on vent. Objective Data Objective Data Vital Signs: Vital Signs Temp Pulse Resp BP Pulse Ox 95.4 F L 56 L 12 87/51 L 88 07/24/21 09:53 07/24/21 09:53 07/24/21 09:53 07/24/21 09:53 07/24/21 09:30 Oxygen Flow Rate (L/min) [ 3 AMBULATING with Oxygen #1] Oxygen Flow Rate (L/min) 100 Oxygen Delivery Method Mechanical Ventilator Weight: 116.3 kg Body Mass Index (BMI) 44.5 Intake & Output: Intake and Output for Last 24 Hours 07/22/21 07/23/21 07/24/21 23:59 23:59 23:59 Intake Total 3022.28 / 3069.06 1878.21 / 1942.89 800.82 / 800.82 Output Total 2340 / 2340 255 / 273 70 / 70 Balance 682.28 / 729.06 1623.21 / 1669.89 730.82 / 730.82 Lab / Micro Data Result Diagrams: 07/24/21 04:20 07/24/21 04:20 Labs: Laboratory Results - last 24 hr 07/18/21 07:30: Crossmatch See Detail 07/22/21 03:25: Diff Path Review Reviewed 07/23/21 23:27: Hgb 7.4 L, Hct 22.4 L 07/24/21 04:20: WBC 7.8, RBC 2.42 L, Hgb 6.9 L, Hct 21.5 L, MCV 88.8, MCH 28.5, MCHC 32.1, RDW Std Deviation 49.6 H, RDW Coeff of Tyrell 16.1 H, Plt Count 169, MPV 9.5, Immature Gran % (Auto) 1.300 H, Neut % (Auto) 93.8 H, Lymph % (Auto) 2.3 L, [place] % (Auto) 2.4, Eos % (Auto) 0.1, Baso % (Auto) 0.1, Absolute Neuts (auto) 7.3, Absolute Lymphs (auto) 0.18 L, Nucleated RBC % 0, Differential Comment SCANNED 07/24/21 04:20: Sodium 134 L, Potassium 4.4, Chloride 104, Carbon Dioxide 23.0, Anion Gap 7, BUN 51 H, Creatinine 2.42 H, Estim Creat Clear Calc 18.82, Est GFR (MDRD) Af Amer 26 L, Est GFR (MDRD) Non-Af 22 L, BUN/Creatinine Ratio 21.1 H, Glucose 170 H, Calcium 7.3 L 07/24/21 06:18: Blood Type A POSITIVE, Antibody Screen NEGATIVE, Crossmatch See Detail Micro: Microbiology 07/18/21 11:20 Stool C. difficile DNA Amplification - Final 07/18/21 11:20 Stool Stool Occult Blood (ROSEMARIE) - Final Occult Blood Positive 07/11/21 15:00 Blood Culture (Wb) - Right Wrist Blood Culture - Final No growth in 5 days. 07/11/21 15:15 Blood Culture (Wb) - Right Hand Blood Culture - Final No growth in 5 days. 07/11/21 15:00 Urine Catheter - Connelly Urine Culture - Final Yeast, not Rosio albicans 07/11/21 15:25 Sputum, Induced/Lukens Gram Stain - Final 07/11/21 15:25 Sputum, Induced/Lukens Respiratory Culture - Final Coag Negative Staph 07/06/21 11:20 Sputum, Induced/Lukens Gram Stain - Final 07/06/21 11:20 Sputum, Induced/Lukens Respiratory Culture - Final Culture exhibits no growth. 06/28/21 12:01 Blood Culture (Wb) - Right Hand Blood Culture - Final No growth in 5 days. 06/28/21 11:52 Blood Culture (Wb) - Left Hand Blood Culture - Final No growth in 5 days. 06/26/21 20:35 Urine, Clean Catch Streptococcus pneumoniae Antigen (M - Final 06/26/21 20:35 Urine, Clean Catch Legionella Antigen - Final 06/28/21 16:50 Mucosa - Nasopharyngeal Influenza Types A,B Direct FA (ROSEMARIE) - Final Influenzae B 06/26/21 20:35 Urine, Clean Catch Urine Culture - Final Escherichia coli ABG Data ABG results: ABG 07/23/21 14:17 Specimen Type ART Sample Site R Radial pH 7.25 L Bicarbonate Actual 26.7 H Total CO2 29 Base Excess -1 O2 Saturation 83 L O2 % 60 ABG pCO2 60.8 H ABG pO2 57 L Edgar Test Positive Respiration Rate 16 O2 Delivery Device Adult Vent Vent Mode AC Tidal Volume 450 POC PEEP 12 Radiography Diagnostic Testing: Radiology Impression Chest X-Ray 07/24/21 10:10 IMPRESSION: The tip of the right dialysis catheter is at the junction of the superior vena cava and right atrium. Bilateral airspace disease. Electronically Signed: Cachorro Fox MD at 10:33 EST , Physical Exam Narrative Const: On vent. NAD noted Cardio: S1 S2 Resp: clear anteriorly Extremities: edema to b/l lower legs, feet and hands tunneled Right IJ HD catheter dressing C/D/I connelly with scant yellow urine in tubing Assessment & Plan Assessment/Plan (1) OPAL (acute kidney injury): PLAN: -OPAL is likely due to ischemic ATN related to sepsis. The patient remains oliguric (has connelly for accurate output measurement). Tunneled HD catheter placed 07/24/2021. -Dialysis was initiated on 07/08/2021. -On MWF dialysis schedule. -No noted renal recovery at this time. Last HD 07/22, tolerated 2 L of fluid removed. She did need pressors during HD at 10mcg. Fluid removal limited due to hypotension. On levophed - UOP remains poor, only 255 ml for last 24hrs. - HD/UF today over 4 hours and attempt 3-4L UF as pt/bp tolerates. Current levophed dose at 1mcg, able to increase rate if needed during HD - Earlier this week Hgb dropped 6.9 and required PRBC, stool OB +, on pantoprazole. Hgb improved 9.0--> 6.9 today, to received PRBC, will give during HD. Developed some post-op bleeding after trach which needed cauterization of bleeding vessel. (2) Chronic kidney disease, stage 3a: PLAN: -Baseline serum creatinine is 1.4 mg/dL. (3) Immunosuppressed status: PLAN: -The patient is status post orthotopic liver transplantation. -On tacrolimus, mycophenolate, and prednisone. Mycophenolate is on hold as per transplant team recommendation due to COVID-19 infection. -The patient is also being followed by GI. (4) Acute respiratory failure with hypoxia: PLAN: -The patient is ventilator dependent. -She has finished treatment course for COVID-19 and influenza B. She is on empiric antibiotic as per industrial sales manager due to recent fever. -UF as possible with HD (limited by low BP). - Peg, trach and tunneled HD catheter placed this week
--- NOTE | 2021-07-24 11:46 | PCM.PROGNOTE ---
Subjective Subjective no issues since surgery last night. Objective Data Objective Data Vital Signs: Vital Signs Temp Pulse Resp BP Pulse Ox 95.4 F L 56 L 20 H 87/51 L 88 07/24/21 09:53 07/24/21 09:53 07/24/21 11:20 07/24/21 09:53 07/24/21 09:30 Oxygen Flow Rate (L/min) [ 3 AMBULATING with Oxygen #1] Oxygen Flow Rate (L/min) 100 Oxygen Delivery Method Mechanical Ventilator Weight: 116.3 kg Body Mass Index (BMI) 44.5 Intake & Output: Intake and Output for Last 24 Hours 07/22/21 07/23/21 07/24/21 23:59 23:59 23:59 Intake Total 3022.28 / 3069.06 1878.21 / 1942.89 800.82 / 800.82 Output Total 2340 / 2340 255 / 273 70 / 70 Balance 682.28 / 729.06 1623.21 / 1669.89 730.82 / 730.82 Lab / Micro Data Result Diagrams: 07/24/21 04:20 07/24/21 04:20 Labs: Laboratory Results - last 24 hr 07/18/21 07:30: Crossmatch See Detail 07/22/21 03:25: Diff Path Review Reviewed 07/23/21 23:27: Hgb 7.4 L, Hct 22.4 L 07/24/21 04:20: WBC 7.8, RBC 2.42 L, Hgb 6.9 L, Hct 21.5 L, MCV 88.8, MCH 28.5, MCHC 32.1, RDW Std Deviation 49.6 H, RDW Coeff of Tyrell 16.1 H, Plt Count 169, MPV 9.5, Immature Gran % (Auto) 1.300 H, Neut % (Auto) 93.8 H, Lymph % (Auto) 2.3 L, [place] % (Auto) 2.4, Eos % (Auto) 0.1, Baso % (Auto) 0.1, Absolute Neuts (auto) 7.3, Absolute Lymphs (auto) 0.18 L, Nucleated RBC % 0, Differential Comment SCANNED 07/24/21 04:20: Sodium 134 L, Potassium 4.4, Chloride 104, Carbon Dioxide 23.0, Anion Gap 7, BUN 51 H, Creatinine 2.42 H, Estim Creat Clear Calc 18.82, Est GFR (MDRD) Af Amer 26 L, Est GFR (MDRD) Non-Af 22 L, BUN/Creatinine Ratio 21.1 H, Glucose 170 H, Calcium 7.3 L 07/24/21 06:18: Blood Type A POSITIVE, Antibody Screen NEGATIVE, Crossmatch See Detail Micro: Microbiology 07/18/21 11:20 Stool C. difficile DNA Amplification - Final 07/18/21 11:20 Stool Stool Occult Blood (ROSEMARIE) - Final Occult Blood Positive 07/11/21 15:00 Blood Culture (Wb) - Right Wrist Blood Culture - Final No growth in 5 days. 07/11/21 15:15 Blood Culture (Wb) - Right Hand Blood Culture - Final No growth in 5 days. 07/11/21 15:00 Urine Catheter - Richardson Urine Culture - Final Yeast, not Rosio albicans 07/11/21 15:25 Sputum, Induced/Lukens Gram Stain - Final 07/11/21 15:25 Sputum, Induced/Lukens Respiratory Culture - Final Coag Negative Staph 07/06/21 11:20 Sputum, Induced/Lukens Gram Stain - Final 07/06/21 11:20 Sputum, Induced/Lukens Respiratory Culture - Final Culture exhibits no growth. 06/28/21 12:01 Blood Culture (Wb) - Right Hand Blood Culture - Final No growth in 5 days. 06/28/21 11:52 Blood Culture (Wb) - Left Hand Blood Culture - Final No growth in 5 days. 06/26/21 20:35 Urine, Clean Catch Streptococcus pneumoniae Antigen (M - Final 06/26/21 20:35 Urine, Clean Catch Legionella Antigen - Final 06/28/21 16:50 Mucosa - Nasopharyngeal Influenza Types A,B Direct FA (ROSEMARIE) - Final Influenzae B 06/26/21 20:35 Urine, Clean Catch Urine Culture - Final Escherichia coli ABG Data ABG results: ABG 07/23/21 14:17 Specimen Type ART Sample Site R Radial pH 7.25 L Bicarbonate Actual 26.7 H Total CO2 29 Base Excess -1 O2 Saturation 83 L O2 % 60 ABG pCO2 60.8 H ABG pO2 57 L Edgar Test Positive Respiration Rate 16 O2 Delivery Device Adult Vent Vent Mode AC Tidal Volume 450 POC PEEP 12 Radiography Diagnostic Testing: Radiology Impression Chest X-Ray 07/24/21 10:10 IMPRESSION: The tip of the right dialysis catheter is at the junction of the superior vena cava and right atrium. Bilateral airspace disease. Electronically Signed: Cachorro Fox MD at 10:33 EST , Physical Exam HEENT HEENT Narrative: 6DCT in place, no bleeding. Assessment & Plan Assessment/Plan (1) Acute respiratory failure with hypoxia: PLAN: 61 year old POD #1 s/p tracheostomy with cinthia flap and subsequent takeback for bleeding. -no bleeding since surgery -Hb down roughly 1.5 g, transfused -will continue to follow
--- NOTE | 2021-07-24 16:10 | DIALYSIS ---
Hemodialysis x4 hours ended 13 mins early at 1535 due to low SBP, ran on a 2K bath, UF 3600mL, tolerated well with 2mcg of Levophed till last 45mins of tx, SBP 70s, Levophed increased to 3mcg/min, SBP still 70s, accessed via newly placed right chest tunneled dialysis catheter, worked well, 2 units PRBCs administered without signs/symptoms of transfusion reaction, next tx planned for Tuesday
[2021-07-24] MEDS: Atorvastatin Calcium 10 MG Tablet GT (22:10)
[2021-07-25] VITALS (39 sets, daily range): BP systolic 89–186; BP diastolic 48–90; PULSE 72–110; RESP 16–38; TEMP 36.4–37.2; O2SAT 88–96
[2021-07-25] MEDS: Dexmedetomidine 1,000 mcg in 0.9% NS 240 mL 43.6 MCG CONT INF (03:16)
[2021-07-25] MEDS: CHLORHEXIDINE GLUC 2% CLOTH 1 EACH TOWELETTE TOPICAL (03:17)
[2021-07-25 03:48] LABS: Basophil# 0.01 X10^3/uL; Basophil% 0.1 % (0-1); Eosinophil# 0.12 X10^3/uL; Eosinophils% 1.2 % (0-5); Hematocrit 29.2 % (37-47); Mean Corp Hgb Conc 34.2 g/dL (32-36); Mean Corpuscular Hgb 29.5 pg (27.0-32.0); Mean Corpuscular Volume 86.1 fL (81-99); Mean Platelet Vol. 9.1 fl (6.2-12.0); Monocyte# 0.35 X10^3/uL; Monocyte% 3.6 % (0-10); NRBC Flagged by Analyzer 0 % (0-5); Neutrophil # 9.01 X10^3/uL (2.7-7.7); Neutrophil % 91.6 % (47-70); POSITIVE DIFFERENTIAL YES; Platelet Count 165 K/mm3 (150-450); RBC Distribution Width CV 15.7 % (11.6-14.6); RBC Distribution Width SD 47.4 fl (35.1-43.9); Red Blood Count 3.39 M/mm3 (4.2-5.4); White Blood Count 9.8 K/mm3 (4.4-11.0)
[2021-07-25 04:04] LABS: Anion Gap 9 (5-15); BUN 36 mg/dL (7-18); BUN/Creat Ratio 18.5 RATIO (10-20); Calcium,Total 7.5 mg/dL (8.5-10.1); Chloride 97 mmol/L (98-107); Creatinine, Serum 1.95 mg/dL (0.55-1.02); EST Glomerular Filtration Rate 28 mL/min (>60); Est Glom Filt Rate - Afr Amer 33 mL/min (>60); Estimated Creatinine Clearance 23.36 ml/min; Glucose 162 mg/dL (74-106); Potassium 3.5 mmol/L (3.5-5.1); Sodium Level 132 mmol/L (136-145)
[2021-07-25 04:34] LABS: Differential Comment SCANNED; Differential Indicated SCAN CRITERIA MET
[2021-07-25] MEDS: Hydrocortisone Sod Succinate 100 MG/2 ML Vial IV ×3 (06:15→21:04)
--- NOTE | 2021-07-25 06:39 | PN.CC_ITS ---
Assessment & Plan Assessment/Plan (1) COVID-19: (2) Influenza B: PLAN: RECOMMENDATIONS: 1. Continue mechanical ventilation and wean FiO2 for saturations greater than 90%. 2. Continue antimicrobials and empiric antifungal coverage per infectious disease. 3. Hemodialysis per nephrology 4. Continue SCDs for DVT prophylaxis in light of possible GI blood loss. 5. Continue Protonix to twice daily. 6. Reinitiate full dose stress dose steroids 7. Potentially wean fentanyl and Precedex following operative procedures 8. Increase Seroquel and add OxyIR and attempts to wean drips IMPRESSIONS: 1. Acute hypoxemic respiratory failure secondary to COVID-19/influenza B The patient was initially admitted to the hospital on June 27 and subsequently tested positive for both COVID-19 and influenza. The patient is vaccinated at her baseline. However, she is immunosuppressed due to a history of a liver transplant. The patient's oxygenation status progressively worsened over the course of her hospitalization, ultimately culminating in intubation on July 06. She has completed a treatment course of Tamiflu. She has been continued on Decadron and prophylactic Lovenox. Infectious disease is following. Patient has been placed on empiric antibiotics and antifungals. Continue to wean FiO2 to maintain saturations at or above 90%. Ongoing volume optimization through hemodialysis per nephrology recommendations. Patient with tracheostomy on 07/23/2021. Initial bleeding complications have resolved. Patient has been weaned to 10 of PEEP. 2. Distributive shock/relative adrenal insufficiency Likely multifactorial with underlying infection and hemodynamic effects of sedative medication use contributing. Continue vasopressor support, if needed, as ordered to maintain a mean arterial pressure at or above 65 mmHg. Patient did respond appropriately to blood transfusions, but is still requiring low-dose pressors. Patient does have an element of poor oncotic intravascular pressures. Will increase to full stress dose steroids and attempt to discontinue Levophed. Patient may need a slower taper. 3. Acute kidney injury Likely secondary to ischemic ATN in the setting of #1. Nephrology is currently following to assist with hemodialysis needs and volume removal. Patient is dialysis dependent at this time. Still with minimal urine output 4. Chronic baseline immunosuppressed state secondary to liver transplantation Continue baseline outpatient immunosuppressive regimen, with the exception of CellCept. Liver function profile remains within normal limits. Tacrolimus levels were within therapeutic limits. GI is following 5. Anemia Stool for occult blood was positive earlier in the hospitalization and patient did have some bleeding following the trach. Patient with good response to blood transfusions. Check H&H daily. Increased dosing frequency of Protonix to twice daily. 6. Morbid obesity/asthma/hypothyroidism/hyperlipidemia/GERD Complicates care, management, recovery and prognosis. Continue home medications as indicated. Poor overall prognosis. TIME: 43 minutes of critical care time, independent of procedures, was spent addressing the patient's acute hypoxemic respiratory failure secondary to COVID- 19/influenza B, distributive shock, acute kidney injury, anemia, review of all data and collaboration with the care team. Subjective Subjective Patient did okay overnight. No repeat bleeding from trach site noted. Patient continues to have poor vent synchrony, so remains on fentanyl and Precedex. Patient did have 3-1/2 L removed with hemodialysis yesterday. Patient still has Levophed requirements. Patient failed spontaneous breathing trials, but has been weaned to 10 of PEEP. Patient was initiated on tube feeds and has been tolerating these appropriately. Objective Data Objective Data Vital Signs: Vital Signs Temp Pulse Resp BP Pulse Ox 37.1 C 89 16 93/50 L 91 07/25/21 06:00 07/25/21 06:00 07/25/21 06:00 07/25/21 06:00 07/25/21 06:00 Oxygen Flow Rate (L/min) [ 3 AMBULATING with Oxygen #1] Oxygen Flow Rate (L/min) 100 Oxygen Delivery Method Mechanical Ventilator Weight: 115 kg Body Mass Index (BMI) 44.5 Intake & Output: Intake and Output for Last 24 Hours 07/23/21 07/24/21 07/25/21 23:59 23:59 23:59 Intake Total 1878.21 / 1942.89 2185.63 / 2250.36 1696.70 / 1696.70 Output Total 255 / 273 3920 / 3925 45 / 45 Balance 1623.21 / 1669.89 -1734.37 / -1674.64 1651.70 / 1651.70 Lab / Micro Data Result Diagrams: 07/25/21 03:35 07/25/21 03:35 Labs: Laboratory Results - last 24 hr 07/18/21 07:30: Crossmatch See Detail 07/24/21 06:18: Blood Type A POSITIVE, Antibody Screen NEGATIVE, Crossmatch See Detail 07/25/21 03:35: WBC 9.8, RBC 3.39 L, Hgb 10.0 L, Hct 29.2 L, MCV 86.1, MCH 29.5, MCHC 34.2 D, RDW Std Deviation 47.4 H, RDW Coeff of Tyrell 15.7 H, Plt Count 165, MPV 9.1, Immature Gran % (Auto) 1.500 H, Neut % (Auto) 91.6 H, Lymph % (Auto) 2.0 L, [place] % (Auto) 3.6, Eos % (Auto) 1.2, Baso % (Auto) 0.1, Absolute Neuts (auto) 9.0 H, Absolute Lymphs (auto) 0.20 L, Nucleated RBC % 0, Differential Comment SCANNED 07/25/21 03:35: Sodium 132 L, Potassium 3.5, Chloride 97 L, Carbon Dioxide 26.0, Anion Gap 9, BUN 36 H, Creatinine 1.95 H, Estim Creat Clear Calc 23.36, Est GFR (MDRD) Af Amer 33 L, Est GFR (MDRD) Non-Af 28 L, BUN/Creatinine Ratio 18.5, Glucose 162 H, Calcium 7.5 L Micro: Microbiology 07/18/21 11:20 Stool C. difficile DNA Amplification - Final 07/18/21 11:20 Stool Stool Occult Blood (ROSEMARIE) - Final Occult Blood Positive 07/11/21 15:00 Blood Culture (Wb) - Right Wrist Blood Culture - Final No growth in 5 days. 07/11/21 15:15 Blood Culture (Wb) - Right Hand Blood Culture - Final No growth in 5 days. 07/11/21 15:00 Urine Catheter - Richardson Urine Culture - Final Yeast, not Rosio albicans 07/11/21 15:25 Sputum, Induced/Lukens Gram Stain - Final 07/11/21 15:25 Sputum, Induced/Lukens Respiratory Culture - Final Coag Negative Staph 07/06/21 11:20 Sputum, Induced/Lukens Gram Stain - Final 07/06/21 11:20 Sputum, Induced/Lukens Respiratory Culture - Final Culture exhibits no growth. 06/28/21 12:01 Blood Culture (Wb) - Right Hand Blood Culture - Final No growth in 5 days. 06/28/21 11:52 Blood Culture (Wb) - Left Hand Blood Culture - Final No growth in 5 days. 06/26/21 20:35 Urine, Clean Catch Streptococcus pneumoniae Antigen (M - Fi nal 06/26/21 20:35 Urine, Clean Catch Legionella Antigen - Final 06/28/21 16:50 Mucosa - Nasopharyngeal Influenza Types A,B Direct FA (ROSEMARIE) - Final Influenzae B 06/26/21 20:35 Urine, Clean Catch Urine Culture - Final Escherichia coli Radiography Diagnostic Testing: Radiology Impression Chest X-Ray 07/24/21 10:10 IMPRESSION: The tip of the right dialysis catheter is at the junction of the superior vena cava and right atrium. Bilateral airspace disease. Electronically Signed: Cachorro Fox MD at 10:33 EST , Physical Exam Const Constitutional Narrative: Ventilated, sedated and mechanically ventilated. No ventilator dyssynchrony. Anasarca noted. Nutritional Appearance: morbidly obese HEENT normocephalic and head/scalp atraumatic Mouth: endotracheal tube in place Eyes PERRL and EOMs intact bilaterally Neck supple General: trachea midline, tracheostomy present and other Slight bruising noted around tracheostomy. Shiley 6?0 trach Chest inspection of chest normal Chest Narrative: Dialysis catheter is clean, dry and intact Chest: Negative for crepitus Resp Auscultation: diminished lung sounds; Negative for rales, rhonchi or wheezes Cardio regular rate, regular rhythm, S1 normal heart sound and S2 normal heart sound Heart Sounds: murmur GI normal to inspection, nondistended, normoactive bowel sounds GI Narrative: PEG clean, dry and intact Extremity General Extremity: edema; Negative for clubbing or cyanosis Skin no rashes or lesions noted Neuro Sensorium / Orientation: sedated on vent Charges/Coding Procedures Hospitalists Procedures: 32155 Critial Care 1st Hr
[2021-07-25] MEDS: oxyCODONE 5 MG Tablet 10 MG PO ×3 (06:41→18:23)
[2021-07-25] MEDS: Chlorhexidine 15 ML PO ×2 (08:01→21:02)
[2021-07-25] MEDS: Polyethylene Glycol 3350 17 GM PACKET GT (08:03)
[2021-07-25] MEDS: Lactulose 20 GM/30 ML UDC GT (08:03)
[2021-07-25] MEDS: QUEtiapine 25 MG Tablet 50 MG PO ×2 (08:04→21:05)
[2021-07-25] MEDS: Tacrolimus 0.5 MG Capsule GT ×2 (08:05→21:06)
[2021-07-25] MEDS: Tacrolimus Anhydrous 1 MG Capsule 2 MG GT ×2 (08:05→21:05)
[2021-07-25] MEDS: Ursodiol 250 MG Tablet GT ×2 (08:08→21:06)
[2021-07-25] MEDS: Cholecalciferol (VIT D3) 25 MCG TABLET (1,000 UNITS) 50 MCG GT (08:08)
[2021-07-25] MEDS: Aspirin 81 MG TAB.CHEW GT (08:09)
[2021-07-25] MEDS: Menthol/Lanolin/Calamine/Znox 113 GM Tube 1 APPLIC TOPICAL ×2 (08:09→21:02)
[2021-07-25] MEDS: Calcium (Elemental) 500 MG Tablet GT ×2 (08:10→21:09)
[2021-07-25] MEDS: Levothyroxine 88 MCG Tablet GT (08:10)
[2021-07-25] MEDS: rifAXIMin 550 MG Tablet GT ×2 (08:11→21:06)
[2021-07-25] MEDS: QUEtiapine 100 MG Tablet PO ×2 (08:11→21:05)
[2021-07-25] MEDS: Dexmedetomidine 1,000 mcg in 0.9% NS 240 mL 40.7 MCG CONT INF (09:34)
[2021-07-25] MEDS: Fluconazole 100 MG in Viaflex Bag 1 BAG 50 MG IV (10:22)
[2021-07-25] MEDS: NEPRO TUBE FEED 1,000 ML 45 ML GT (13:11)
--- NOTE | 2021-07-25 13:19 | PN.HOSP_ITS ---
Subjective Subjective Patient did complete 3 spontaneous breathing trials yesterday. Weaning fentanyl and Precedex. Patient remains on Levophed currently at 2 mics per minute. No significant overnight issues. Objective Data Objective Data Vital Signs: Vital Signs Temp Pulse Resp BP Pulse Ox 98.6 F 90 21 H 98/61 92 07/25/21 11:00 07/25/21 11:29 07/25/21 11:00 07/25/21 11:00 07/25/21 11:00 Oxygen Flow Rate (L/min) [ 3 AMBULATING with Oxygen #1] Oxygen Flow Rate (L/min) 100 Oxygen Delivery Method Mechanical Ventilator Weight: 115 kg Body Mass Index (BMI) 44.5 Intake & Output: Intake and Output for Last 24 Hours 07/23/21 07/24/21 07/25/21 23:59 23:59 23:59 Intake Total 1878.21 / 1942.89 2185.63 / 2250.36 2130.36 / 2130.36 Output Total 255 / 273 3920 / 3925 45 / 45 Balance 1623.21 / 1669.89 -1734.37 / -1674.64 2085.36 / 2085.36 Lab / Micro Data Result Diagrams: 07/25/21 03:35 07/25/21 03:35 Labs: Laboratory Results - last 24 hr 07/24/21 06:18: Blood Type A POSITIVE, Antibody Screen NEGATIVE, Crossmatch See Detail 07/25/21 03:35: WBC 9.8, RBC 3.39 L, Hgb 10.0 L, Hct 29.2 L, MCV 86.1, MCH 29.5, MCHC 34.2 D, RDW Std Deviation 47.4 H, RDW Coeff of Tyrell 15.7 H, Plt Count 165, MPV 9.1, Immature Gran % (Auto) 1.500 H, Neut % (Auto) 91.6 H, Lymph % (Auto) 2.0 L, Cherry % (Auto) 3.6, Eos % (Auto) 1.2, Baso % (Auto) 0.1, Absolute Neuts (auto) 9.0 H, Absolute Lymphs (auto) 0.20 L, Nucleated RBC % 0, Differential Comment SCANNED 07/25/21 03:35: Sodium 132 L, Potassium 3.5, Chloride 97 L, Carbon Dioxide 26.0, Anion Gap 9, BUN 36 H, Creatinine 1.95 H, Estim Creat Clear Calc 23.36, Est GFR (MDRD) Af Amer 33 L, Est GFR (MDRD) Non-Af 28 L, BUN/Creatinine Ratio 18.5, Glucose 162 H, Calcium 7.5 L Micro: Microbiology 07/18/21 11:20 Stool C. difficile DNA Amplification - Final 07/18/21 11:20 Stool Stool Occult Blood (ROSEMARIE) - Final Occult Blood Positive 07/11/21 15:00 Blood Culture (Wb) - Right Wrist Blood Culture - Final No growth in 5 days. 07/11/21 15:15 Blood Culture (Wb) - Right Hand Blood Culture - Final No growth in 5 days. 07/11/21 15:00 Urine Catheter - Richardson Urine Culture - Final Yeast, not Rosio albicans 07/11/21 15:25 Sputum, Induced/Lukens Gram Stain - Final 07/11/21 15:25 Sputum, Induced/Lukens Respiratory Culture - Final Coag Negative Staph 07/06/21 11:20 Sputum, Induced/Lukens Gram Stain - Final 07/06/21 11:20 Sputum, Induced/Lukens Respiratory Culture - Final Culture exhibits no growth. 06/28/21 12:01 Blood Culture (Wb) - Right Hand Blood Culture - Final No growth in 5 days. 06/28/21 11:52 Blood Culture (Wb) - Left Hand Blood Culture - Final No growth in 5 days. 06/26/21 20:35 Urine, Clean Catch Streptococcus pneumoniae Antigen (M - Final 06/26/21 20:35 Urine, Clean Catch Legionella Antigen - Final 06/28/21 16:50 Mucosa - Nasopharyngeal Influenza Types A,B Direct FA (ROSEMARIE) - Final Influenzae B 06/26/21 20:35 Urine, Clean Catch Urine Culture - Final Escherichia coli Physical Exam Const alert and oriented x3 Constitutional Narrative: Obese white female lying in bed, trached and sedated but awake, seems agitated at this time General Appearance: intubated and patient mechanically ventilated Exam Limitations: no limitations Nutritional Appearance: morbidly obese HEENT normocephalic, head/scalp atraumatic and moist oral mucous membranes Head and Scalp: normocephalic Eyes Eyes Narrative: No scleral icterus Neck supple and no JVD Neck Narrative: DCT [address] and sutured Resp normal respiratory effort, no retractions and no use of accessory muscles Resp Narrative: Diffusely diminished breath sounds but no adventitious sounds noted, right chest wall with tunneled dialysis catheter Auscultation: diminished lung sounds; Negative for crackles, rales, rhonchi or wheezes Cardio regular rate, regular rhythm, S1 normal heart sound, S2 normal heart sound, no murmurs, no rub, no gallops, no clicks and no JVD GI normal to inspection, nondistended, normoactive bowel sounds, soft to palpation and non-distended; Negative for hepatosplenomegaly Extremity Extremity Narrative: left upper extremity PICC which is clean and dry, less edematous, no cyanosis or clubbing Neuro Neuro Narrative: Spontaneously moves all extremities however remains sedated but awake and does not follow commands consistently Sensorium / Orientation: sedated on vent Psych Psych Narrative: Appearance: intubated Assessment & Plan Assessment/Plan (1) Acute respiratory failure with hypoxia: (2) Influenza B: (3) COVID-19: (4) OPAL (acute kidney injury): (5) Shock: PLAN: Acute hypoxic respiratory failure secondary to influenza B and COVID- 19/superimposed bacterial pneumonia -Patient required intubation on 07/06/2021 -Had been on BiPAP for 48 continuous straight hours with worsening oxygenation -Intubated 07/06/2021--> vent day -Remains on ventilator at an FiO2 of 65% with a PEEP of 10--> SPO2 88-90% -Trach done 07/23/2021 with some postoperative bleeding and return to the OR for cauterization of a bleeding vessel -PEG placed today 07-22-2021 -Patient did well with 3 spontaneous breathing trials yesterday -Had been sick for approximately 3 weeks prior to admission -Was vaccinated and boosted however was immunocompromised with CellCept, tacrolimus, and prednisone -Not a baricitinib candidate secondary to liver transplant -Decadron completed -Tamiflu completed -Continue prophylactic Lovenox -Pulmonary medicine following-appreciate input -ID following-appreciate input -Pre-CERT is pending for LTAC transfer likely to occur early next week Suspected candidal esophagitis -Continue fluconazole -Biopsies do not show any H. pylori -ID is following Distributive shock -Suspect multifactorial -Patient is on 2 mcg/min of Levophed -Intermittent hypotension should improve as we are able to wean sedation with trach now being in place -Urine culture showed noncandidal yeast growth and fluconazole has been initiated--> renally dosed -Further studies are still pending -Antibiotics have been discontinued other than the fluconazole -Since patient has remained on Levophed increase stress dose steroids to 50 mg 3 times daily -Would taper slowly but not until she remains off Levophed for at least 24 to 48 hours -Infectious diseases following -C. difficile was negative OPAL on CKD stage IIIa secondary to ischemic ATN -Dialysis was initiated on 07/08/2021 -Last HD was 07/15/2021 -Tunneled dialysis catheter placed on 07/24/2021 -HD Tuesday/Tuesday/Tuesday -Nephrology is following and appreciate input Autoimmune hepatitis status post liver transplant -Patient remains on outpatient immunosuppression except for CellCept which is on hold per marketing program coordinator recommendations -Tacrolimus level was 3.7 and dose remains continued -Will need outpatient follow-up if patient survives acute hospitalization -Continue home rifaximin/lactulose via OG -Continue home Bactrim for PCP prophylaxis via OG -Continue home ursodiol Acute normocytic anemia -Suspect related to critical illness -Hemoccult was positive 07/18/2021 -Hemoglobin 10 today -Blood transfusion 07/19 for hemoglobin of 6.9--> 2 units -Blood transfusion 07/24 for hemoglobin of 6.9 after trach site bleeding--> 2 units -PPI 40 mg twice daily -Chemical DVT prophylaxis discontinued History of asthma -As per above Hypothyroidism -Continue home Synthroid GERD -Continue IV Protonix 40 mg twice daily Hyperlipidemia -Continue home statin Obesity -BMI is 38.8 -Complicates treatment, prognosis, outcomes, -Recommend weight loss DVT prophylaxis -SCDs -No chemoprophylaxis secondary to GI bleed CODE STATUS -Full code -Overall prognosis is likely poor given comorbidities and current status Charges/Coding Visit Charges Inpatient E&M: 68034 Subs Hosp L2
[2021-07-25] MEDS: LORazepam 2 MG/ML Syringe 0.5 MG IV ×2 (15:25→19:35)
[2021-07-25] MEDS: Dexmedetomidine 1,000 mcg in 0.9% NS 240 mL 37.8 MCG CONT INF (16:29)
--- NOTE | 2021-07-25 20:03 | PCM.PN.REN ---
Subjective Subjective Following for OPAL. The patient remains on ventilator and is sedated. She is currently off of IV vasopressor. Objective Data Objective Data Vital Signs: Vital Signs Temp Pulse Resp BP Pulse Ox 98.4 F 97 30 H 154/64 H 92 07/25/21 19:00 07/25/21 19:03 07/25/21 19:03 07/25/21 19:00 07/25/21 19:03 Oxygen Flow Rate (L/min) [ 3 AMBULATING with Oxygen #1] Oxygen Flow Rate (L/min) 100 Oxygen Delivery Method Mechanical Ventilator Weight: 115 kg Body Mass Index (BMI) 44.5 Intake & Output: Intake and Output for Last 24 Hours 07/23/21 07/24/21 07/25/21 23:59 23:59 23:59 Intake Total 1878.21 / 1942.89 2185.63 / 2250.36 2703.36 / 2703.36 Output Total 255 / 273 3920 / 3925 215 / 215 Balance 1623.21 / 1669.89 -1734.37 / -1674.64 2488.36 / 2488.36 Lab / Micro Data Result Diagrams: 07/25/21 03:35 07/25/21 03:35 Labs: Laboratory Results - last 24 hr 07/25/21 03:35: WBC 9.8, RBC 3.39 L, Hgb 10.0 L, Hct 29.2 L, MCV 86.1, MCH 29.5, MCHC 34.2 D, RDW Std Deviation 47.4 H, RDW Coeff of Tyrell 15.7 H, Plt Count 165, MPV 9.1, Immature Gran % (Auto) 1.500 H, Neut % (Auto) 91.6 H, Lymph % (Auto) 2.0 L, Faulkner % (Auto) 3.6, Eos % (Auto) 1.2, Baso % (Auto) 0.1, Absolute Neuts (auto) 9.0 H, Absolute Lymphs (auto) 0.20 L, Nucleated RBC % 0, Differential Comment SCANNED 07/25/21 03:35: Sodium 132 L, Potassium 3.5, Chloride 97 L, Carbon Dioxide 26.0, Anion Gap 9, BUN 36 H, Creatinine 1.95 H, Estim Creat Clear Calc 23.36, Est GFR (MDRD) Af Amer 33 L, Est GFR (MDRD) Non-Af 28 L, BUN/Creatinine Ratio 18.5, Glucose 162 H, Calcium 7.5 L Micro: Microbiology 07/18/21 11:20 Stool C. difficile DNA Amplification - Final 07/18/21 11:20 Stool Stool Occult Blood (ROSEMARIE) - Final Occult Blood Positive 07/11/21 15:00 Blood Culture (Wb) - Right Wrist Blood Culture - Final No growth in 5 days. 07/11/21 15:15 Blood Culture (Wb) - Right Hand Blood Culture - Final No growth in 5 days. 07/11/21 15:00 Urine Catheter - Richardson Urine Culture - Final Yeast, not Rosio albicans 07/11/21 15:25 Sputum, Induced/Lukens Gram Stain - Final 07/11/21 15:25 Sputum, Induced/Lukens Respiratory Culture - Final Coag Negative Staph 07/06/21 11:20 Sputum, Induced/Lukens Gram Stain - Final 07/06/21 11:20 Sputum, Induced/Lukens Respiratory Culture - Final Culture exhibits no growth. 06/28/21 12:01 Blood Culture (Wb) - Right Hand Blood Culture - Final No growth in 5 days. 06/28/21 11:52 Blood Culture (Wb) - Left Hand Blood Culture - Final No growth in 5 days. 06/26/21 20:35 Urine, Clean Catch Streptococcus pneumoniae Antigen (M - Final 06/26/21 20:35 Urine, Clean Catch Legionella Antigen - Final 06/28/21 16:50 Mucosa - Nasopharyngeal Influenza Types A,B Direct FA (ROSEMARIE) - Final Influenzae B 06/26/21 20:35 Urine, Clean Catch Urine Culture - Final Escherichia coli Physical Exam Narrative Const: On vent. NAD noted Cardio: Normal S1 S2 Resp: Coarse breath sound anteriorly Abdomen: Normal bowel sound, soft, nontender Extremities: edema to b/l lower legs, feet and hands tunneled Right IJ HD catheter dressing C/D/I Assessment & Plan Assessment/Plan (1) OPAL (acute kidney injury): PLAN: -OPAL is likely due to ischemic ATN related to sepsis. The patient remains oliguric. Tunneled HD catheter placed 07/24/2021. -Dialysis was initiated on 07/08/2021. -On MWF dialysis schedule. -No renal recovery at this time. - HD/UF on 07/24/2021: 4 hours with 3-4L UF. -No need for dialysis today. Anticipate next dialysis on 07/27/2021. (2) Chronic kidney disease, stage 3a: PLAN: -Baseline serum creatinine is 1.4 mg/dL. (3) Immunosuppressed status: PLAN: -The patient is status post orthotopic liver transplantation. -On tacrolimus, mycophenolate, and prednisone. Mycophenolate is on hold as per transplant team recommendation due to COVID-19 infection. -The patient is also being followed by GI. (4) Acute respiratory failure with hypoxia: PLAN: -The patient is ventilator dependent. -She has finished treatment course for COVID-19 and influenza B. She is on empiric antibiotic as per chief science officer due to recent fever. -UF as possible with HD (limited by low BP).
[2021-07-25] MEDS: Atorvastatin Calcium 10 MG Tablet GT (21:05)
[2021-07-25] MEDS: Senna/Docusate Sodium 1 Tablet GT (21:06)
[2021-07-25] MEDS: Dexmedetomidine 1,000 mcg in 0.9% NS 240 mL 34.9 MCG CONT INF (23:51)
[2021-07-26] VITALS (35 sets, daily range): BP systolic 97–182; BP diastolic 52–105; PULSE 54–126; RESP 11–34; TEMP 35.3–36.5; O2SAT 89–95
[2021-07-26] MEDS: oxyCODONE 5 MG Tablet 10 MG PO (01:13)
[2021-07-26 03:29] LABS: Absolute Neutrophil Count 6.1 X10^3/uL (2.0-7.7); Eosinophil# 0.01 X10^3/uL; Eosinophils% 0.1 % (0-5); Hematocrit 27.3 % (37-47); Hemoglobin 9.1 g/dL (12.0-15.0); Mean Corp Hgb Conc 33.3 g/dL (32-36); Mean Corpuscular Hgb 29.1 pg (27.0-32.0); Mean Corpuscular Volume 87.2 fL (81-99); Mean Platelet Vol. 9.4 fl (6.2-12.0); Monocyte# 0.25 X10^3/uL; Monocyte% 3.7 % (0-10); NRBC Flagged by Analyzer 0.3 % (0-5); Neutrophil # 6.11 X10^3/uL (2.7-7.7); Neutrophil % 91.1 % (47-70); POSITIVE DIFFERENTIAL YES; Platelet Count 161 K/mm3 (150-450); RBC Distribution Width CV 15.5 % (11.6-14.6); RBC Distribution Width SD 48.2 fl (35.1-43.9); Red Blood Count 3.13 M/mm3 (4.2-5.4); White Blood Count 6.7 K/mm3 (4.4-11.0)
[2021-07-26 03:30] LABS: Differential Indicated SCAN CRITERIA MET
[2021-07-26 03:46] LABS: Differential Comment SCANNED
[2021-07-26 04:15] LABS: Anion Gap 9 (5-15); BUN 54 mg/dL (7-18); BUN/Creat Ratio 22.9 RATIO (10-20); Calcium,Total 7.7 mg/dL (8.5-10.1); Chloride 97 mmol/L (98-107); Creatinine, Serum 2.36 mg/dL (0.55-1.02); EST Glomerular Filtration Rate 22 mL/min (>60); Est Glom Filt Rate - Afr Amer 27 mL/min (>60); Glucose 200 mg/dL (74-106); Potassium 3.7 mmol/L (3.5-5.1); Sodium Level 130 mmol/L (136-145)
[2021-07-26] MEDS: LORazepam 2 MG/ML Syringe 0.5 MG IV ×2 (05:12→22:22)
[2021-07-26] MEDS: Hydrocortisone Sod Succinate 100 MG/2 ML Vial IV ×3 (05:13→20:39)
[2021-07-26] MEDS: CHLORHEXIDINE GLUC 2% CLOTH 1 EACH TOWELETTE TOPICAL (06:04)
--- NOTE | 2021-07-26 06:26 | PN.CC_ITS ---
Assessment & Plan Assessment/Plan (1) COVID-19: (2) Influenza B: PLAN: RECOMMENDATIONS: 1. Continue mechanical ventilation and wean FiO2 for saturations greater than 90%. 2. Continue antimicrobials and empiric antifungal coverage per infectious disease. 3. Hemodialysis per nephrology 4. Continue SCDs for DVT prophylaxis in light of possible GI blood loss. 5. Continue Protonix to twice daily. 6. Reinitiate full dose stress dose steroids 7. Increase Seroquel and OxyIR and attempts to wean drips IMPRESSIONS: 1. Acute hypoxemic respiratory failure secondary to COVID-19/influenza B The patient was initially admitted to the hospital on June 27 and subsequently tested positive for both COVID-19 and influenza. The patient is vaccinated at her baseline. However, she is immunosuppressed due to a history of a liver transplant. The patient's oxygenation status progressively worsened over the course of her hospitalization, ultimately culminating in intubation on July 06. She has completed a treatment course of Tamiflu. She has been continued on Decadron and prophylactic Lovenox. Infectious disease is following. Patient has been placed on empiric antibiotics and antifungals. Defer to ID on length of treatment. Continue to wean FiO2 to maintain saturations at or above 90%. Ongoing volume optimization through hemodialysis per nephrology recommendations. Patient with tracheostomy on 07/23/2021. Initial bleeding complications have resolved. Patient has been weaned to 10 of PEEP. Attempting to discontinue drips to facilitate transfer to LTAC early next week 2. Distributive shock/relative adrenal insufficiency Likely multifactorial with underlying infection and hemodynamic effects of sedative medication use contributing. Continue vasopressor support, if needed, as ordered to maintain a mean arterial pressure at or above 65 mmHg. Patient did respond appropriately to blood transfusions, but is still requiring low-dose pressors. Patient does have an element of poor oncotic intravascular pressures. Will continue full stress dose steroids. Patient may need a slower taper. 3. Acute kidney injury Likely secondary to ischemic ATN in the setting of #1. Nephrology is currently following to assist with hemodialysis needs and volume removal. Patient is dialysis dependent at this time. Still with minimal urine output 4. Chronic baseline immunosuppressed state secondary to liver transplantation Continue baseline outpatient immunosuppressive regimen, with the exception of CellCept. Liver function profile remains within normal limits. Tacrolimus levels were within therapeutic limits. GI is following 5. Anemia Stool for occult blood was positive earlier in the hospitalization and patient did have some bleeding following the trach. Patient with good response to blood transfusions. Check H&H daily. Increased dosing frequency of Protonix to twice daily. 6. Morbid obesity/asthma/hypothyroidism/hyperlipidemia/GERD Complicates care, management, recovery and prognosis. Continue home medications as indicated. Poor overall prognosis. TIME: 33 minutes of critical care time, independent of procedures, was spent addressing the patient's acute hypoxemic respiratory failure secondary to COVID- 19/influenza B, distributive shock, acute kidney injury, anemia, review of all data and collaboration with the care team. Subjective Subjective Patient did okay overnight. No acute issues were reported. Patient has remained off of Levophed. Nursing is reporting significant diarrhea overnight. Patient remains on fentanyl and Precedex drip despite Seroquel and OxyIR. Nursing reports that attempts to wean have been left with vent dyssynchrony. No further bleeding has been noted from the trach site. Objective Data Objective Data Vital Signs: Vital Signs Temp Pulse Resp BP Pulse Ox 36.1 C L 73 18 115/64 89 07/26/21 06:00 07/26/21 06:00 07/26/21 06:00 07/26/21 06:00 07/26/21 06:00 Oxygen Flow Rate (L/min) [ 3 AMBULATING with Oxygen #1] Oxygen Flow Rate (L/min) 100 Oxygen Delivery Method Mechanical Ventilator Weight: 119.6 kg Body Mass Index (BMI) 44.5 Intake & Output: Intake and Output for Last 24 Hours 07/24/21 07/25/21 07/26/21 23:59 23:59 23:59 Intake Total 2185.63 / 2250.36 3016.23 / 3031.23 1132.10 / 1132.10 Output Total 3920 / 3925 265 / 265 50 / 50 Balance -1734.37 / -1674.64 2751.23 / 2766.23 1082.10 / 1082.10 Lab / Micro Data Result Diagrams: 07/26/21 03:20 07/26/21 03:20 Labs: Laboratory Results - last 24 hr 07/26/21 03:20: WBC 6.7, RBC 3.13 L, Hgb 9.1 L, Hct 27.3 L, MCV 87.2, MCH 29.1, MCHC 33.3, RDW Std Deviation 48.2 H, RDW Coeff of Tyrell 15.5 H, Plt Count 161, MPV 9.4, Immature Gran % (Auto) 2.100 H, Neut % (Auto) 91.1 H, Lymph % (Auto) 3.0 L, Woodward % (Auto) 3.7, Eos % (Auto) 0.1, Baso % (Auto) 0.0, Absolute Neuts (auto) 6.1, Absolute Lymphs (auto) 0.20 L, Nucleated RBC % 0.3, Differential Comment SCANNED 07/26/21 03:20: Sodium 130 L, Potassium 3.7, Chloride 97 L, Carbon Dioxide 24.0, Anion Gap 9, BUN 54 H, Creatinine 2.36 H, Estim Creat Clear Calc 19.30, Est GFR (MDRD) Af Amer 27 L, Est GFR (MDRD) Non-Af 22 L, BUN/Creatinine Ratio 22.9 H, Glucose 200 H, Calcium 7.7 L Micro: Microbiology 07/18/21 11:20 Stool C. difficile DNA Amplification - Final 07/18/21 11:20 Stool Stool Occult Blood (ROSEMARIE) - Final Occult Blood Positive 07/11/21 15:00 Blood Culture (Wb) - Right Wrist Blood Culture - Final No growth in 5 days. 07/11/21 15:15 Blood Culture (Wb) - Right Hand Blood Culture - Final No growth in 5 days. 07/11/21 15:00 Urine Catheter - Richardson Urine Culture - Final Yeast, not Rosio albicans 07/11/21 15:25 Sputum, Induced/Lukens Gram Stain - Final 07/11/21 15:25 Sputum, Induced/Lukens Respiratory Culture - Final Coag Negative Staph 07/06/21 11:20 Sputum, Induced/Lukens Gram Stain - Final 07/06/21 11:20 Sputum, Induced/Lukens Respiratory Culture - Final Culture exhibits no growth. 06/28/21 12:01 Blood Culture (Wb) - Right Hand Blood Culture - Final No growth in 5 days. 06/28/21 11:52 Blood Culture (Wb) - Left Hand Blood Culture - Final No growth in 5 days. 06/26/21 20:35 Urine, Clean Catch Streptococcus pneumoniae Antigen (M - Final 06/26/21 20:35 Urine, Clean Catch Legionella Antigen - Final 06/28/21 16:50 Mucosa - Nasopharyngeal Influenza Types A,B Direct FA (ROSEMARIE) - Final Influenzae B 06/26/21 20:35 Urine, Clean Catch Urine Culture - Final Escherichia coli Physical Exam Const Constitutional Narrative: Ventilated and mechanically ventilated. No ventilator dyssynchrony. Anasarca noted. Coughs with evaluation Nutritional Appearance: morbidly obese HEENT normocephalic and head/scalp atraumatic Eyes PERRL and EOMs intact bilaterally Neck supple General: trachea midline, tracheostomy present and other No bleeding noted around tracheostomy. Shiley 6?0 trach Chest inspection of chest normal Chest Narrative: Dialysis catheter is clean, dry and intact Chest: Negative for crepitus Resp Auscultation: diminished lung sounds; Negative for rales, rhonchi or wheezes Cardio regular rate, regular rhythm, S1 normal heart sound and S2 normal heart sound Heart Sounds: murmur GI normal to inspection, nondistended, normoactive bowel sounds GI Narrative: PEG clean, dry and intact Extremity General Extremity: edema; Negative for clubbing or cyanosis Skin no rashes or lesions noted Neuro Sensorium / Orientation: sedated on vent Charges/Coding Procedures Hospitalists Procedures: 70834 Critial Care 1st Hr
[2021-07-26] MEDS: TITRATION PARAMETER CHANGE 1 EACH IV (06:54)
[2021-07-26] MEDS: Dexmedetomidine 1,000 mcg in 0.9% NS 240 mL 35.9 MCG CONT INF (07:00)
[2021-07-26] MEDS: oxyCODONE 5 MG Tablet 15 MG PO ×3 (07:30→22:23)
[2021-07-26] MEDS: Aspirin 81 MG TAB.CHEW GT (07:31)
[2021-07-26] MEDS: Menthol/Lanolin/Calamine/Znox 113 GM Tube 1 APPLIC TOPICAL ×2 (07:31→20:41)
[2021-07-26] MEDS: Chlorhexidine 15 ML PO ×2 (07:32→20:41)
[2021-07-26] MEDS: Calcium (Elemental) 500 MG Tablet GT ×2 (07:33→20:40)
[2021-07-26] MEDS: Ferrous Gluconate 324 MG Tablet PO ×2 (07:33→07:37)
[2021-07-26] MEDS: rifAXIMin 550 MG Tablet GT ×2 (07:34→20:40)
[2021-07-26] MEDS: Cholecalciferol (VIT D3) 25 MCG TABLET (1,000 UNITS) 50 MCG GT (07:36)
[2021-07-26] MEDS: Tacrolimus 0.5 MG Capsule GT ×2 (07:37→20:39)
[2021-07-26] MEDS: Tacrolimus Anhydrous 1 MG Capsule 2 MG GT ×2 (07:37→20:39)
[2021-07-26] MEDS: Ursodiol 250 MG Tablet GT ×2 (07:39→20:40)
[2021-07-26] MEDS: Levothyroxine 88 MCG Tablet GT (07:39)
[2021-07-26] MEDS: Fluconazole 100 MG in Viaflex Bag 1 BAG 50 MG IV (09:01)
[2021-07-26] MEDS: QUEtiapine 100 MG Tablet 200 MG PO ×2 (09:01→20:40)
--- NOTE | 2021-07-26 10:20 | PCM.PN.HOSP ---
Subjective Subjective No significant issues overnight. Patient having increased stool output. FMS removed 2 days ago. Will discontinue lactulose and scheduled senna. Continue to monitor stools. Weaning off sedation slowly as to not throw her into opiate withdrawal. Objective Data Objective Data Vital Signs: Vital Signs Temp Pulse Resp BP Pulse Ox 97 F L 67 18 117/70 91 07/26/21 06:00 07/26/21 08:00 07/26/21 08:00 07/26/21 07:00 07/26/21 08:00 Oxygen Flow Rate (L/min) [ 3 AMBULATING with Oxygen #1] Oxygen Flow Rate (L/min) 100 Oxygen Delivery Method Mechanical Ventilator Weight: 119.6 kg Body Mass Index (BMI) 44.5 Intake & Output: Intake and Output for Last 24 Hours 07/24/21 07/25/21 07/26/21 23:59 23:59 23:59 Intake Total 2185.63 / 2250.36 3016.23 / 3031.23 1473.53 / 1473.53 Output Total 3920 / 3925 265 / 265 50 / 50 Balance -1734.37 / -1674.64 2751.23 / 2766.23 1423.53 / 1423.53 Lab / Micro Data Result Diagrams: 07/26/21 03:20 07/26/21 03:20 Labs: Laboratory Results - last 24 hr 07/26/21 03:20: WBC 6.7, RBC 3.13 L, Hgb 9.1 L, Hct 27.3 L, MCV 87.2, MCH 29.1, MCHC 33.3, RDW Std Deviation 48.2 H, RDW Coeff of Tyrell 15.5 H, Plt Count 161, MPV 9.4, Immature Gran % (Auto) 2.100 H, Neut % (Auto) 91.1 H, Lymph % (Auto) 3.0 L, [place] % (Auto) 3.7, Eos % (Auto) 0.1, Baso % (Auto) 0.0, Absolute Neuts (auto) 6.1, Absolute Lymphs (auto) 0.20 L, Nucleated RBC % 0.3, Differential Comment SCANNED 07/26/21 03:20: Sodium 130 L, Potassium 3.7, Chloride 97 L, Carbon Dioxide 24.0, Anion Gap 9, BUN 54 H, Creatinine 2.36 H, Estim Creat Clear Calc 19.30, Est GFR (MDRD) Af Amer 27 L, Est GFR (MDRD) Non-Af 22 L, BUN/Creatinine Ratio 22.9 H, Glucose 200 H, Calcium 7.7 L Micro: Microbiology 07/18/21 11:20 Stool C. difficile DNA Amplification - Final 07/18/21 11:20 Stool Stool Occult Blood (ROSEMARIE) - Final Occult Blood Positive 07/11/21 15:00 Blood Culture (Wb) - Right Wrist Blood Culture - Final No growth in 5 days. 07/11/21 15:15 Blood Culture (Wb) - Right Hand Blood Culture - Final No growth in 5 days. 07/11/21 15:00 Urine Catheter - Richardson Urine Culture - Final Yeast, not Rosio albicans 07/11/21 15:25 Sputum, Induced/Lukens Gram Stain - Final 07/11/21 15:25 Sputum, Induced/Lukens Respiratory Culture - Final Coag Negative Staph 07/06/21 11:20 Sputum, Induced/Lukens Gram Stain - Final 07/06/21 11:20 Sputum, Induced/Lukens Respiratory Culture - Final Culture exhibits no growth. 06/28/21 12:01 Blood Culture (Wb) - Right Hand Blood Culture - Final No growth in 5 days. 06/28/21 11:52 Blood Culture (Wb) - Left Hand Blood Culture - Final No growth in 5 days. 06/26/21 20:35 Urine, Clean Catch Streptococcus pneumoniae Antigen (M - Final 06/26/21 20:35 Urine, Clean Catch Legionella Antigen - Final 06/28/21 16:50 Mucosa - Nasopharyngeal Influenza Types A,B Direct FA (ROSEMARIE) - Final Influenzae B 06/26/21 20:35 Urine, Clean Catch Urine Culture - Final Escherichia coli Physical Exam Const alert and oriented x3 Constitutional Narrative: Obese white female lying in bed, trached and sedated but awake, nursing at bedside, patient is currently calm General Appearance: intubated and patient mechanically ventilated Exam Limitations: no limitations Nutritional Appearance: morbidly obese HEENT normocephalic, head/scalp atraumatic and moist oral mucous membranes Head and Scalp: normocephalic Neck Neck Narrative: DCT [address] and sutured Resp normal respiratory effort, no retractions and no use of accessory muscles Resp Narrative: Diffusely diminished breath sounds but no adventitious sounds noted, right chest wall with tunneled dialysis catheter-dressing is clean dry Auscultation: diminished lung sounds; Negative for crackles, rales, rhonchi or wheezes Cardio regular rate, regular rhythm, S1 normal heart sound, S2 normal heart sound, no murmurs, no rub, no gallops, no clicks and no JVD GI normal to inspection, nondistended, normoactive bowel sounds, soft to palpation and non-distended; Negative for hepatosplenomegaly Extremity no clubbing, cyanosis or edema Extremity Narrative: left upper extremity PICC which is clean and dry, less edematous, no cyanosis or clubbing Neuro Neuro Narrative: Spontaneously moves all extremities however remains sedated but awake and does not follow commands consistently Sensorium / Orientation: sedated on vent Psych Psych Narrative: Appearance: intubated Assessment & Plan Assessment/Plan (1) Acute respiratory failure with hypoxia: (2) Influenza B: (3) COVID-19: (4) OPAL (acute kidney injury): (5) Shock: PLAN: Acute hypoxic respiratory failure secondary to influenza B and COVID-19/superimposed bacterial pneumonia -Patient required intubation on 07/06/2021 -Had been on BiPAP for 48 continuous straight hours with worsening oxygenation -Intubated 07/06/2021--> vent day 20 -Remains on ventilator at an FiO2 of 60% with a PEEP of 10--> SPO2 89-93% -Trach done 07/23/2021 with some postoperative bleeding and return to the OR for cauterization of a bleeding vessel -PEG placed today 07-22-2021 -Patient did well with 3 spontaneous breathing trials 07/24/2021 -Had been sick for approximately 3 weeks prior to admission -Was vaccinated and boosted however was immunocompromised with CellCept, tacrolimus, and prednisone -Not a baricitinib candidate secondary to liver transplant -Decadron completed -Tamiflu completed -Continue prophylactic Lovenox -Pulmonary medicine following-appreciate input -ID following-appreciate input -Pre-CERT is pending for LTAC transfer likely to occur early next week Suspected candidal esophagitis -Continue fluconazole -Biopsies do not show any H. pylori -ID is following Distributive shock -Suspect multifactorial -Levophed has again been discontinued -Intermittent hypotension should improve as we are able to wean sedation with trach now being in place -Urine culture showed noncandidal yeast growth and fluconazole has been initiated--> renally dosed -Further studies are still pending -Antibiotics have been discontinued other than the fluconazole -Since patient has remained on Levophed increase stress dose steroids to 50 mg 3 times daily -Would taper slowly but not until she remains off Levophed for at least 24 to 48 hours -Infectious diseases following -C. difficile was negative Diarrhea -C. difficile was negative recently -We will discontinue lactulose and senna -We will continue rifaximin for now -Monitor clinically -[place] exam is benign Steroid-induced hyperglycemia -Blood sugars are creeping up some -We will continue to monitor fasting sugars and if consistently elevated will need to add sliding scale -Likely related to stress dose steroids OPAL on CKD stage IIIa secondary to ischemic ATN -Dialysis was initiated on 07/08/2021 -Last HD was 07/15/2021 -Tunneled dialysis catheter placed on 07/24/2021 -HD Tuesday/Tuesday/Tuesday -Nephrology is following and appreciate input Autoimmune hepatitis status post liver transplant -Patient remains on outpatient immunosuppression except for CellCept which is on hold per back up scan coordinator recommendations -Tacrolimus level was 3.7 and dose remains continued -Will need outpatient follow-up if patient survives acute hospitalization -Continue home rifaximin -Lactulose discontinued secondary to diarrhea -Continue home Bactrim for PCP prophylaxis via OG -Continue home ursodiol Acute normocytic anemia -Suspect related to critical illness -Hemoccult was positive 07/18/2021 -Hemoglobin 10 today -Blood transfusion 07/19 for hemoglobin of 6.9--> 2 units -Blood transfusion 07/24 for hemoglobin of 6.9 after trach site bleeding--> 2 units -PPI 40 mg twice daily -Chemical DVT prophylaxis discontinued History of asthma -As per above Hypothyroidism -Continue home Synthroid GERD -Continue IV Protonix 40 mg twice daily Hyperlipidemia -Continue home statin Obesity -BMI is 38.8 -Complicates treatment, prognosis, outcomes, -Recommend weight loss DVT prophylaxis -SCDs -No chemoprophylaxis secondary to GI bleed CODE STATUS -Full code -Overall prognosis is likely poor given comorbidities and current status Charges/Coding Visit Charges Inpatient E&M: 22635 Subs Hosp L2
[2021-07-26] MEDS: NEPRO TUBE FEED 1,000 ML 45 ML GT (12:22)
[2021-07-26] MEDS: Dexmedetomidine 1,000 mcg in 0.9% NS 240 mL 20.9 MCG CONT INF (15:39)
--- NOTE | 2021-07-26 18:49 | PN.RENAL_ITS ---
Subjective Subjective Following for acute kidney injury on chronic kidney disease. The patient remains on ventilator via tracheostomy tube. She has been off of IV vasopressor for more than 36 hours. No significant changes in the last 24 hours per RN. Objective Data Objective Data Vital Signs: Vital Signs Temp Pulse Resp BP Pulse Ox 95.5 F L 100 33 H 111/68 92 07/26/21 18:00 07/26/21 18:00 07/26/21 18:00 07/26/21 18:00 07/26/21 18:00 Oxygen Flow Rate (L/min) [ 3 AMBULATING with Oxygen #1] Oxygen Flow Rate (L/min) 100 Oxygen Delivery Method Mechanical Ventilator Weight: 119.6 kg Body Mass Index (BMI) 44.5 Intake & Output: Intake and Output for Last 24 Hours 07/24/21 07/25/21 07/26/21 23:59 23:59 23:59 Intake Total 2185.63 / 2250.36 3016.23 / 3031.23 2135.65 / 2135.65 Output Total 3920 / 3925 265 / 265 200 / 200 Balance -1734.37 / -1674.64 2751.23 / 2766.23 1935.65 / 1935.65 Lab / Micro Data Result Diagrams: 07/26/21 03:20 07/26/21 03:20 Labs: Laboratory Results - last 24 hr 07/26/21 03:20: WBC 6.7, RBC 3.13 L, Hgb 9.1 L, Hct 27.3 L, MCV 87.2, MCH 29.1, MCHC 33.3, RDW Std Deviation 48.2 H, RDW Coeff of Tyrell 15.5 H, Plt Count 161, MPV 9.4, Immature Gran % (Auto) 2.100 H, Neut % (Auto) 91.1 H, Lymph % (Auto) 3.0 L, [place] % (Auto) 3.7, Eos % (Auto) 0.1, Baso % (Auto) 0.0, Absolute Neuts (auto) 6.1, Absolute Lymphs (auto) 0.20 L, Nucleated RBC % 0.3, Differential Comment SCANNED 07/26/21 03:20: Sodium 130 L, Potassium 3.7, Chloride 97 L, Carbon Dioxide 24.0, Anion Gap 9, BUN 54 H, Creatinine 2.36 H, Estim Creat Clear Calc 19.30, Est GFR (MDRD) Af Amer 27 L, Est GFR (MDRD) Non-Af 22 L, BUN/Creatinine Ratio 22.9 H, Glucose 200 H, Calcium 7.7 L Micro: Microbiology 07/18/21 11:20 Stool C. difficile DNA Amplification - Final 07/18/21 11:20 Stool Stool Occult Blood (ROSEMARIE) - Final Occult Blood Positive 07/11/21 15:00 Blood Culture (Wb) - Right Wrist Blood Culture - Final No growth in 5 days. 07/11/21 15:15 Blood Culture (Wb) - Right Hand Blood Culture - Final No growth in 5 days. 07/11/21 15:00 Urine Catheter - Richardson Urine Culture - Final Yeast, not Rosio albicans 07/11/21 15:25 Sputum, Induced/Lukens Gram Stain - Final 07/11/21 15:25 Sputum, Induced/Lukens Respiratory Culture - Final Coag Negative Staph 07/06/21 11:20 Sputum, Induced/Lukens Gram Stain - Final 07/06/21 11:20 Sputum, Induced/Lukens Respiratory Culture - Final Culture exhibits no growth. 06/28/21 12:01 Blood Culture (Wb) - Right Hand Blood Culture - Final No growth in 5 days. 06/28/21 11:52 Blood Culture (Wb) - Left Hand Blood Culture - Final No growth in 5 days. 06/26/21 20:35 Urine, Clean Catch Streptococcus pneumoniae Antigen (M - Final 06/26/21 20:35 Urine, Clean Catch Legionella Antigen - Final 06/28/21 16:50 Mucosa - Nasopharyngeal Influenza Types A,B Direct FA (ROSEMARIE) - Final Influenzae B 06/26/21 20:35 Urine, Clean Catch Urine Culture - Final Escherichia coli Physical Exam Narrative Const: On vent. NAD noted Neck: Tracheostomy tube intact and connected to ventilator Cardio: Normal S1 S2 Resp: Coarse breath sound anteriorly Abdomen: Normal bowel sound, soft, nontender Extremities: edema to b/l lower legs, feet and hands tunneled Right IJ HD catheter dressing C/D/I Assessment & Plan Assessment/Plan (1) OPAL (acute kidney injury): PLAN: -OPAL is likely due to ischemic ATN related to sepsis. The patient remains oliguric. Tunneled HD catheter placed 07/24/2021. -Dialysis was initiated on 07/08/2021. -On MWF dialysis schedule. -No renal recovery at this time. -No need for dialysis today. Next dialysis is scheduled for 07/27/2021. (2) Chronic kidney disease, stage 3a: PLAN: -Baseline serum creatinine is 1.4 mg/dL. (3) Immunosuppressed status: PLAN: -The patient is status post orthotopic liver transplantation for autoimmune hepatitis. -On tacrolimus, mycophenolate, and prednisone. Mycophenolate is on hold as per transplant team recommendation due to COVID-19 infection. -The patient is also being followed by GI. -Being treated for esophageal candidiasis with econazole. (4) Acute respiratory failure with hypoxia: PLAN: -The patient is ventilator dependent. -She has finished treatment course for COVID-19 and influenza B. -UF as possible with HD (limited by low BP).
[2021-07-26] MEDS: Atorvastatin Calcium 10 MG Tablet GT (20:39)
[2021-07-27] VITALS (38 sets, daily range): BP systolic 92–155; BP diastolic 53–106; PULSE 79–116; RESP 14–36; TEMP 35.8–36.9; O2SAT 89–98
[2021-07-27] MEDS: CHLORHEXIDINE GLUC 2% CLOTH 1 EACH TOWELETTE TOPICAL (02:58)
[2021-07-27 03:13] LABS: Absolute Lymphocyte Count 0.18 X10^3/uL (0.83-4.51); Absolute Neutrophil Count 7.1 X10^3/uL (2.0-7.7); Basophil# 0.01 X10^3/uL; Basophil% 0.1 % (0-1); Eosinophil# 0.01 X10^3/uL; Eosinophils% 0.1 % (0-5); Hematocrit 28.3 % (37-47); Hemoglobin 9.5 g/dL (12.0-15.0); Lymphocyte # 0.18 X10^3/ul (0.83-4.51); Lymphocyte % 2.3 % (19-41); Mean Corp Hgb Conc 33.6 g/dL (32-36); Mean Corpuscular Hgb 29.5 pg (27.0-32.0); Mean Corpuscular Volume 87.9 fL (81-99); Mean Platelet Vol. 9.5 fl (6.2-12.0); Monocyte# 0.25 X10^3/uL; Monocyte% 3.2 % (0-10); NRBC Flagged by Analyzer 0.3 % (0-5); Neutrophil # 7.06 X10^3/uL (2.7-7.7); Neutrophil % 91.6 % (47-70); POSITIVE DIFFERENTIAL YES; Platelet Count 195 K/mm3 (150-450); RBC Distribution Width CV 15.3 % (11.6-14.6); RBC Distribution Width SD 48.4 fl (35.1-43.9); Red Blood Count 3.22 M/mm3 (4.2-5.4); White Blood Count 7.7 K/mm3 (4.4-11.0)
[2021-07-27 03:27] LABS: Differential Indicated SCAN CRITERIA MET
[2021-07-27 03:35] LABS: BUN 64 mg/dL (7-18); Creatinine, Serum 2.45 mg/dL (0.55-1.02); Estimated Creatinine Clearance 18.59 ml/min; Glucose 229 mg/dL (74-106)
[2021-07-27 03:36] LABS: Anion Gap 10 (5-15); BUN/Creat Ratio 26.1 RATIO (10-20); Calcium,Total 8.2 mg/dL (8.5-10.1); Chloride 95 mmol/L (98-107); EST Glomerular Filtration Rate 21 mL/min (>60); Est Glom Filt Rate - Afr Amer 26 mL/min (>60); Potassium 3.8 mmol/L (3.5-5.1); Sodium Level 128 mmol/L (136-145)
[2021-07-27] MEDS: 0.9% Saline Lock 10 ML Syringe IV ×3 (05:08→21:38)
[2021-07-27] MEDS: Hydrocortisone Sod Succinate 100 MG/2 ML Vial IV ×3 (05:08→20:45)
[2021-07-27] MEDS: LORazepam 2 MG/ML Syringe 0.5 MG IV ×3 (05:25→16:33)
[2021-07-27] MEDS: oxyCODONE 5 MG Tablet 15 MG PO ×4 (05:26→20:56)
[2021-07-27] MEDS: Dexmedetomidine 1,000 mcg in 0.9% NS 240 mL 15 MCG CONT INF (05:38)
--- NOTE | 2021-07-27 06:13 | PCM.PN.INT ---
Assessment & Plan Assessment/Plan (1) COVID-19: (2) Influenza B: PLAN: RECOMMENDATIONS: 1. Continue to wean FiO2 and PEEP for saturations greater than 90%. 2. Continue nutritional support via PEG tube. 3. Continue current sedation regimen. 4. Perform spontaneous breathing trial tomorrow. 5. Continue PPI therapy twice daily. 6. Wean stress dose steroids. 7. Awaiting LTAC disposition. IMPRESSIONS: 1. Acute hypoxemic respiratory failure secondary to COVID-19/influenza B The patient was initially admitted to the hospital on June 27 and subsequently tested positive for both COVID-19 and influenza. The patient is vaccinated at her baseline. However, she is immunosuppressed due to a history of a liver transplant. The patient's oxygenation status progressively worsened over the course of her hospitalization, ultimately culminating in intubation on July 06. The patient completed a treatment course of Tamiflu, but was not a candidate for baricitinib. She has also completed treatment courses of antimicrobials and was treated with antifungals for a period of time. Recommend ongoing volume optimization through hemodialysis per nephrology recommendations. The patient did undergo successful tracheostomy on July 23. Continue to wean FiO2 and PEEP as tolerated for saturations greater than 90%. LTAC disposition is pending. 2. Distributive shock/relative adrenal insufficiency Resolved. Likely multifactorial with underlying infection and hemodynamic effects of sedative medication use contributing. The patient has been weaned from vasopressor support and remains on stress dose steroids, which will be weaned as tolerated. 3. Acute kidney injury Likely secondary to ischemic ATN in the setting of #1. Nephrology is currently following to assist with hemodialysis needs and volume removal. 4. Chronic baseline immunosuppressed state secondary to liver transplantation Continue baseline outpatient immunosuppressive regimen, with the exception of CellCept. Tacrolimus levels were within therapeutic limits. 5. Anemia Stool for occult blood was positive earlier in the hospitalization and patient did have some bleeding following the trach. The patient has responded appropriately to transfusion of blood products. Continue PPI therapy. 6. Morbid obesity/asthma/hypothyroidism/hyperlipidemia/GERD Complicates care, management, recovery and prognosis. Continue home medications as indicated. TIME: 31 minutes of critical care time, independent of procedures, was spent addressing the patient's acute hypoxemic respiratory failure secondary to COVID-19/influenza, relative adrenal insufficiency, acute kidney injury, anemia, review of all data and collaboration with the care team. Subjective Subjective The patient was seen and examined at the bedside this morning. Events from the last 24 hours have been reviewed. Today's ventilator day #22. The patient is currently afebrile, hemodynamically stable and maintaining appropriate oxygen saturations on assist control mode of mechanical ventilation with an FiO2 requirement of 70% and PEEP of 10. The patient did not tolerate a spontaneous awakening trial, as she was noted to be extremely agitated with weaning of sedation. She remains on Precedex and fentanyl. She remains tolerant of tube feeds. She is currently documented to be overall net +25.6 L for the hospitalization. Sodium is low this morning at 128 with a chloride of 95. Objective Data Objective Data The patient's most recent lab work, culture data and imaging studies have all been personally reviewed. Coronavirus PCR was positive on June 26. Influenza screen was positive for flu B. Vital Signs: Vital Signs Temp Pulse Resp BP Pulse Ox 96.4 F L 85 16 114/68 91 07/27/21 04:00 07/27/21 06:00 07/27/21 06:00 07/27/21 06:00 07/27/21 06:00 Oxygen Flow Rate (L/min) [ 3 AMBULATING with Oxygen #1] Oxygen Flow Rate (L/min) 100 Oxygen Delivery Method Mechanical Ventilator Weight: 123.3 kg Body Mass Index (BMI) 44.5 Intake & Output: Intake and Output for Last 24 Hours 07/25/21 07/26/21 07/27/21 23:59 23:59 23:59 Intake Total 3016.23 / 3031.23 2564.00 / 2834.00 615.50 / 615.50 Output Total 265 / 265 200 / 350 300 / 300 Balance 2751.23 / 2766.23 2364.00 / 2484.00 315.50 / 315.50 Lab / Micro Data Attestation: I reviewed the patient's lab results. Result Diagrams: 07/27/21 03:05 07/27/21 03:05 Labs: Laboratory Results - last 24 hr 07/27/21 03:05: WBC 7.7, RBC 3.22 L, Hgb 9.5 L, Hct 28.3 L, MCV 87.9, MCH 29.5, MCHC 33.6, RDW Std Deviation 48.4 H, RDW Coeff of Tyrell 15.3 H, Plt Count 195, MPV 9.5, Immature Gran % (Auto) 2.700 H, Neut % (Auto) 91.6 H, Lymph % (Auto) 2.3 L, [place] % (Auto) 3.2, Eos % (Auto) 0.1, Baso % (Auto) 0.1, Absolute Neuts (auto) 7.1, Absolute Lymphs (auto) 0.18 L, Nucleated RBC % 0.3 07/27/21 03:05: Sodium 128 L, Potassium 3.8, Chloride 95 L, Carbon Dioxide 23.0, Anion Gap 10, BUN 64 H, Creatinine 2.45 H, Estim Creat Clear Calc 18.59, Est GFR (MDRD) Af Amer 26 L, Est GFR (MDRD) Non-Af 21 L, BUN/Creatinine Ratio 26.1 H, Glucose 229 H, Calcium 8.2 L Micro: Microbiology 07/18/21 11:20 Stool C. difficile DNA Amplification - Final 07/18/21 11:20 Stool Stool Occult Blood (ROSEMARIE) - Final Occult Blood Positive 07/11/21 15:00 Blood Culture (Wb) - Right Wrist Blood Culture - Final No growth in 5 days. 07/11/21 15:15 Blood Culture (Wb) - Right Hand Blood Culture - Final No growth in 5 days. 07/11/21 15:00 Urine Catheter - Richardson Urine Culture - Final Yeast, not Rosio albicans 07/11/21 15:25 Sputum, Induced/Lukens Gram Stain - Final 07/11/21 15:25 Sputum, Induced/Lukens Respiratory Culture - Final Coag Negative Staph 07/06/21 11:20 Sputum, Induced/Lukens Gram Stain - Final 07/06/21 11:20 Sputum, Induced/Lukens Respiratory Culture - Final Culture exhibits no growth. 06/28/21 12:01 Blood Culture (Wb) - Right Hand Blood Culture - Final No growth in 5 days. 06/28/21 11:52 Blood Culture (Wb) - Left Hand Blood Culture - Final No growth in 5 days. 06/26/21 20:35 Urine, Clean Catch Streptococcus pneumoniae Antigen (M - Final 06/26/21 20:35 Urine, Clean Catch Legionella Antigen - Final 06/28/21 16:50 Mucosa - Nasopharyngeal Influenza Types A,B Direct FA (ROSEMARIE) - Final Influenzae B 06/26/21 20:35 Urine, Clean Catch Urine Culture - Final Escherichia coli Physical Exam Const no apparent distress General Appearance: patient mechanically ventilated Nutritional Appearance: morbidly obese HEENT normocephalic and head/scalp atraumatic Eyes PERRL and conjunctivae normal Neck supple Neck Narrative: Tracheostomy site is C/D/I General: trachea midline Chest inspection of chest normal Resp Effort and Inspection: tachypneic Auscultation: diminished lung sounds; Negative for rales, rhonchi or wheezes Cardio S1 normal heart sound and S2 normal heart sound Rate: tachycardic GI normal to inspection, nondistended, normoactive bowel sounds GI Narrative: PEG site intact. Extremity General Extremity: edema; Negative for clubbing Skin no rashes or lesions noted Neuro Sensorium / Orientation: sedated on vent Charges/Coding Procedures Hospitalists Procedures: [id number] Critial Care 1st Hr
[2021-07-27] MEDS: TITRATION PARAMETER CHANGE 1 EACH IV (06:14)
[2021-07-27] MEDS: Aspirin 81 MG TAB.CHEW GT (08:20)
[2021-07-27] MEDS: rifAXIMin 550 MG Tablet GT ×2 (08:21→20:45)
[2021-07-27] MEDS: Cholecalciferol (VIT D3) 25 MCG TABLET (1,000 UNITS) 50 MCG GT (08:21)
[2021-07-27] MEDS: Chlorhexidine 15 ML PO ×2 (08:21→20:38)
[2021-07-27] MEDS: Menthol/Lanolin/Calamine/Znox 113 GM Tube 1 APPLIC TOPICAL ×2 (08:21→20:38)
[2021-07-27] MEDS: Smz/Tmp Ds Tablet 1 TABLET GT (08:21)
[2021-07-27] MEDS: Levothyroxine 88 MCG Tablet GT (08:22)
[2021-07-27] MEDS: Calcium (Elemental) 500 MG Tablet GT ×2 (08:22→20:45)
[2021-07-27] MEDS: Ursodiol 250 MG Tablet GT ×2 (08:22→20:45)
[2021-07-27] MEDS: QUEtiapine 100 MG Tablet 200 MG PO ×2 (08:22→20:45)
[2021-07-27] MEDS: Tacrolimus 0.5 MG Capsule GT ×2 (08:23→20:45)
[2021-07-27] MEDS: Tacrolimus Anhydrous 1 MG Capsule 2 MG GT ×2 (08:23→20:46)
[2021-07-27] MEDS: NEPRO TUBE FEED 1,000 ML 45 ML GT (08:24)
--- NOTE | 2021-07-27 09:22 | CASEMGMT ---
EDWARD VILLATORO called and updated Happy at [facility] and to inquire about starting precert. Per Happy, patient needs 3 spontaneous breathing trials on 3 separate days for [facility] to approve precert. Patient has had 3 SBTs on 07/24 and one on 07/27. EDWARD VILLATORO updated respiratory and will arrange for SBT in am. EDWARD VILLATORO updated Happy and she will initiate precert on 07/28/21 when she receives 3rd SBT. EDWARD VILLATORO updated nursing and Dr. Akins. SHAUNA will continue to follow this patient and plan for a safe discharge.
--- NOTE | 2021-07-27 10:08 | PN.HOSP_ITS ---
Subjective Subjective Patient seen and examined. She remains intubated and sedated, therefore unable to do review of systems. She is tachypneic. Today is day of the ventilator. She was unable to tolerate a spontaneous breathing trial as she became agitated. She remains sedated on Precedex and fentanyl. She is on tube feeds. Objective Data Objective Data Vital Signs: Vital Signs Temp Pulse Resp BP Pulse Ox 97.1 F L 108 H 24 H 112/64 92 07/27/21 08:00 07/27/21 09:10 07/27/21 09:10 07/27/21 09:00 07/27/21 09:10 Oxygen Flow Rate (L/min) [ 3 AMBULATING with Oxygen #1] Oxygen Flow Rate (L/min) 100 Oxygen Delivery Method Mechanical Ventilator Weight: 271 lb 13.279 oz Body Mass Index (BMI) 44.5 Intake & Output: Intake and Output for Last 24 Hours 07/25/21 07/26/21 07/27/21 23:59 23:59 23:59 Intake Total 3016.23 / 3031.23 2564.00 / 2834.00 910.04 / 910.04 Output Total 265 / 265 200 / 350 300 / 300 Balance 2751.23 / 2766.23 2364.00 / 2484.00 610.04 / 610.04 Lab / Micro Data Result Diagrams: 07/27/21 03:05 07/27/21 03:05 Labs: Laboratory Results - last 24 hr 07/27/21 03:05: WBC 7.7, RBC 3.22 L, Hgb 9.5 L, Hct 28.3 L, MCV 87.9, MCH 29.5, MCHC 33.6, RDW Std Deviation 48.4 H, RDW Coeff of Tyrell 15.3 H, Plt Count 195, MPV 9.5, Immature Gran % (Auto) 2.700 H, Neut % (Auto) 91.6 H, Lymph % (Auto) 2.3 L, [place] % (Auto) 3.2, Eos % (Auto) 0.1, Baso % (Auto) 0.1, Absolute Neuts (auto) 7.1, Absolute Lymphs (auto) 0.18 L, Nucleated RBC % 0.3 07/27/21 03:05: Sodium 128 L, Potassium 3.8, Chloride 95 L, Carbon Dioxide 23.0, Anion Gap 10, BUN 64 H, Creatinine 2.45 H, Estim Creat Clear Calc 18.59, Est GFR (MDRD) Af Amer 26 L, Est GFR (MDRD) Non-Af 21 L, BUN/Creatinine Ratio 26.1 H, Glucose 229 H, Calcium 8.2 L Micro: Microbiology 07/18/21 11:20 Stool C. difficile DNA Amplification - Final 07/18/21 11:20 Stool Stool Occult Blood (ROSEMARIE) - Final Occult Blood Positive 07/11/21 15:00 Blood Culture (Wb) - Right Wrist Blood Culture - Final No growth in 5 days. 07/11/21 15:15 Blood Culture (Wb) - Right Hand Blood Culture - Final No growth in 5 days. 07/11/21 15:00 Urine Catheter - Richardson Urine Culture - Final Yeast, not Rosio albicans 07/11/21 15:25 Sputum, Induced/Lukens Gram Stain - Final 07/11/21 15:25 Sputum, Induced/Lukens Respiratory Culture - Final Coag Negative Staph 07/06/21 11:20 Sputum, Induced/Lukens Gram Stain - Final 07/06/21 11:20 Sputum, Induced/Lukens Respiratory Culture - Final Culture exhibits no growth. 06/28/21 12:01 Blood Culture (Wb) - Right Hand Blood Culture - Final No growth in 5 days. 06/28/21 11:52 Blood Culture (Wb) - Left Hand Blood Culture - Final No growth in 5 days. 06/26/21 20:35 Urine, Clean Catch Streptococcus pneumoniae Antigen (M - Final 06/26/21 20:35 Urine, Clean Catch Legionella Antigen - Final 06/28/21 16:50 Mucosa - Nasopharyngeal Influenza Types A,B Direct FA (ROSEMARIE) - Final Influenzae B 06/26/21 20:35 Urine, Clean Catch Urine Culture - Final Escherichia coli Physical Exam Const Constitutional Narrative: intubated, Sedated, RASS score is -4 Exam Limitations: altered mental status Nutritional Appearance: morbidly obese HEENT head/scalp atraumatic and moist oral mucous membranes Head and Scalp: normocephalic Eyes PERRL, EOMs intact bilaterally and conjunctivae normal Neck no lymphadenopathy Resp Resp Narrative: has a trach in place, intubated via trach and on the ventilator. Sedated. RASS score is -4 Cardio regular rate, regular rhythm, S1 normal heart sound, S2 normal heart sound and no murmurs GI normal to inspection, nondistended, normoactive bowel sounds, soft to palpation, non-tender and non-distended GI Narrative: obese Extremity normal to inspection Peripheral Pulses: Yes pulses 2+ throughout Skin no rashes or lesions noted Neuro Neuro Narrative: Intubated, sedated, RASS score is -4. Assessment & Plan Assessment/Plan (1) Acute respiratory failure with hypoxia: (2) Influenza B: (3) COVID-19: PLAN: #Acute hypoxic respiratory failure due to covid 19 infection and influenza B, with superimposed bacterial pneumonia * remains intubated and sedated. Intubated on 07/06/2021. Today is day 22 of intubation * has a trach and PEG tube in place. * unable to tolerate spontaneous breathing trial * completed a course of tamiflu and decadron * not a candidate for baricitinib as she has a history of liver transplant * had received covid vaccination, but was immunocompromised on Cellcept, tacrolimus and prednisone due to liver transplant * critical care and ID on board * #Candidal esophagitis * on fluconazole * ID on board. * * #Steroid-induced hyperglycemia: Continue to monitor. If sugars elevated will add on sliding scale. #OPAL on CKD stage III * Thought to be due to ischemic ATN. * Patient now on dialysis. Nephrology on board. * Had a tunneled dialysis catheter placed on 07/24/2021. * For dialysis Wednesdays and Fridays * #Autoimmune hepatitis s/p liver transplant * On tacrolimus and steroids. CellCept on hold * On rifaximin. Lactulose stopped on account of diarrhea. * On ursodiol and on Bactrim for PCP prophylaxis * #Acute on chronic normocytic anemia * S/p transfusion of a total of 4 units in this admission. * On IV PPI 40 mg twice daily. * Stool for occult blood was positive on 07/18/2021. * Hb today is 9.5 * #History of asthma: On breathing treatments bronchodilators. Currently intubated. #Hypothyroidism: On Synthroid #GERD: On IV Protonix 40 mg twice daily #Hyperlipidemia: On statin #Distributive shock: Resolved. On IV hydrocortixone 100mg q8 DVT prophylaxis: SCDs Nutrition: On tube feeding CODE STATUS: Patient remains full code Disposition: Awaiting discharge to LTAC. Case management on board. Charges/Coding Visit Charges Inpatient E&M: 38497 Subs Hosp L3
--- NOTE | 2021-07-27 14:10 | DIALYSIS ---
Pt tolerated 4hr HD tx well. Net UF -2000ml. See flow record for tx data.
--- NOTE | 2021-07-27 16:09 | CASEMGMT ---
EDWARD VILLATORO received call from Alf at [facility]. Alf reviewed clinical and stated that [employer] will deny if patient's FiO2 is greater than 60% and still on Precedex and Fentanyl. RN SHAUNA updated charge nurse for ICU regarding updated information. CM will send updated clinicals in the morning to [place] to initiate precert after SBT completed. CM will continue to follow this patient and plan for a safe discharge.
[2021-07-27 16:51] LABS: Anion Gap 5 (5-15); BUN 28 mg/dL (7-18); BUN/Creat Ratio 21.4 RATIO (10-20); Calcium,Total 7.8 mg/dL (8.5-10.1); Chloride 99 mmol/L (98-107); Creatinine, Serum 1.31 mg/dL (0.55-1.02); EST Glomerular Filtration Rate 44 mL/min (>60); Est Glom Filt Rate - Afr Amer 53 mL/min (>60); Estimated Creatinine Clearance 34.77 ml/min; Glucose 161 mg/dL (74-106); Potassium 3.2 mmol/L (3.5-5.1); Sodium Level 132 mmol/L (136-145)
[2021-07-27] MEDS: Potassium Chloride Oral Soln 20 MEQ/15 ML UDC 40 MEQ GT (18:05)
--- NOTE | 2021-07-27 19:03 | PN.RENAL_ITS ---
Subjective Subjective Following for OPAL. The patient was dialyzed earlier today. She is still off of vasopressor. Objective Data Objective Data Vital Signs: Vital Signs Temp Pulse Resp BP Pulse Ox 98.1 F 94 22 H 131/103 H 91 07/27/21 18:00 07/27/21 18:54 07/27/21 18:54 07/27/21 18:00 07/27/21 18:54 Oxygen Flow Rate (L/min) [ 3 AMBULATING with Oxygen #1] Oxygen Flow Rate (L/min) 100 Oxygen Delivery Method Mechanical Ventilator Weight: 123.3 kg Body Mass Index (BMI) 44.5 Intake & Output: Intake and Output for Last 24 Hours 07/25/21 07/26/21 07/27/21 23:59 23:59 23:59 Intake Total 3016.23 / 3031.23 2564.00 / 2834.00 3406.55 / 3406.55 Output Total 265 / 265 200 / 350 2450 / 2450 Balance 2751.23 / 2766.23 2364.00 / 2484.00 956.55 / 956.55 Lab / Micro Data Result Diagrams: 07/27/21 03:05 07/27/21 16:30 Labs: Laboratory Results - last 24 hr 07/27/21 03:05: WBC 7.7, RBC 3.22 L, Hgb 9.5 L, Hct 28.3 L, MCV 87.9, MCH 29.5, MCHC 33.6, RDW Std Deviation 48.4 H, RDW Coeff of Tyrell 15.3 H, Plt Count 195, MPV 9.5, Immature Gran % (Auto) 2.700 H, Neut % (Auto) 91.6 H, Lymph % (Auto) 2.3 L, [place] % (Auto) 3.2, Eos % (Auto) 0.1, Baso % (Auto) 0.1, Absolute Neuts (auto) 7.1, Absolute Lymphs (auto) 0.18 L, Nucleated RBC % 0.3 07/27/21 03:05: Sodium 128 L, Potassium 3.8, Chloride 95 L, Carbon Dioxide 23.0, Anion Gap 10, BUN 64 H, Creatinine 2.45 H, Estim Creat Clear Calc 18.59, Est GFR (MDRD) Af Amer 26 L, Est GFR (MDRD) Non-Af 21 L, BUN/Creatinine Ratio 26.1 H, Glucose 229 H, Calcium 8.2 L 07/27/21 16:30: Sodium 132 L, Potassium 3.2 L, Chloride 99, Carbon Dioxide 28.0, Anion Gap 5, BUN 28 H, Creatinine 1.31 H, Estim Creat Clear Calc 34.77, Est GFR (MDRD) Af Amer 53 L, Est GFR (MDRD) Non-Af 44 L, BUN/Creatinine Ratio 21.4 H, Glucose 161 H, Calcium 7.8 L Micro: Microbiology 07/18/21 11:20 Stool C. difficile DNA Amplification - Final 07/18/21 11:20 Stool Stool Occult Blood (ROSEMARIE) - Final Occult Blood Positive 07/11/21 15:00 Blood Culture (Wb) - Right Wrist Blood Culture - Final No growth in 5 days. 07/11/21 15:15 Blood Culture (Wb) - Right Hand Blood Culture - Final No growth in 5 days. 07/11/21 15:00 Urine Catheter - Richardson Urine Culture - Final Yeast, not Rosio albicans 07/11/21 15:25 Sputum, Induced/Lukens Gram Stain - Final 07/11/21 15:25 Sputum, Induced/Lukens Respiratory Culture - Final Coag Negative Staph 07/06/21 11:20 Sputum, Induced/Lukens Gram Stain - Final 07/06/21 11:20 Sputum, Induced/Lukens Respiratory Culture - Final Culture exhibits no growth. 06/28/21 12:01 Blood Culture (Wb) - Right Hand Blood Culture - Final No growth in 5 days. 06/28/21 11:52 Blood Culture (Wb) - Left Hand Blood Culture - Final No growth in 5 days. 06/26/21 20:35 Urine, Clean Catch Streptococcus pneumoniae Antigen (M - Final 06/26/21 20:35 Urine, Clean Catch Legionella Antigen - Final 06/28/21 16:50 Mucosa - Nasopharyngeal Influenza Types A,B Direct FA (ROSEMARIE) - Final Influenzae B 06/26/21 20:35 Urine, Clean Catch Urine Culture - Final Escherichia coli Physical Exam Narrative Const: On vent. NAD noted Neck: Tracheostomy tube intact and connected to ventilator Cardio: Normal S1 S2 Resp: Coarse breath sound anteriorly Abdomen: Normal bowel sound, soft, nontender Extremities: edema to b/l lower legs, feet and hands tunneled Right IJ HD catheter dressing C/D/I Assessment & Plan Assessment/Plan (1) OPAL (acute kidney injury): PLAN: -OPAL is likely due to ischemic ATN related to sepsis. The patient remains oliguric. Tunneled HD catheter placed 07/24/2021. -Dialysis was initiated on 07/08/2021. -On MWF dialysis schedule. -No renal recovery at this time. -I supervised the dialysis today: F160, 4h, blood flow 350/dialysate flow 600. Did not need to go back on pressor. (2) Chronic kidney disease, stage 3a: PLAN: -Baseline serum creatinine is 1.4 mg/dL. (3) Immunosuppressed status: PLAN: -The patient is status post orthotopic liver transplantation for autoimmune hepatitis. -On tacrolimus, mycophenolate, and prednisone. Mycophenolate is on hold as per transplant team recommendation due to COVID-19 infection. -The patient is also being followed by GI. -Being treated for esophageal candidiasis with econazole. (4) Acute respiratory failure with hypoxia: PLAN: -The patient is ventilator dependent. -She has finished treatment course for COVID-19 and influenza B. -UF as possible with HD (limited by low BP).
[2021-07-27] MEDS: Atorvastatin Calcium 10 MG Tablet GT (20:46)
[2021-07-27] MEDS: Acetaminophen 650 MG/20 ML UDC GT (20:56)
[2021-07-27] MEDS: LORazepam 2 MG/ML Syringe 1 MG IV (21:38)
[2021-07-28] VITALS (35 sets, daily range): BP systolic 106–219; BP diastolic 37–110; PULSE 80–120; RESP 14–33; TEMP 36.6–37.3; O2SAT 60–99
[2021-07-28] MEDS: Dexmedetomidine 1,000 mcg in 0.9% NS 240 mL 12.3 MCG CONT INF (01:38)
[2021-07-28] MEDS: oxyCODONE 5 MG Tablet 15 MG PO (02:24)
[2021-07-28] MEDS: CHLORHEXIDINE GLUC 2% CLOTH 1 EACH TOWELETTE TOPICAL (03:09)
[2021-07-28 03:38] LABS: Absolute Lymphocyte Count 0.29 X10^3/uL (0.83-4.51); Absolute Neutrophil Count 6.4 X10^3/uL (2.0-7.7); Basophil# 0.01 X10^3/uL; Basophil% 0.1 % (0-1); Differential Indicated SCAN CRITERIA MET; Eosinophil# 0.01 X10^3/uL; Eosinophils% 0.1 % (0-5); Hematocrit 27.1 % (37-47); Hemoglobin 8.9 g/dL (12.0-15.0); Lymphocyte # 0.29 X10^3/ul (0.83-4.51); Mean Corp Hgb Conc 32.8 g/dL (32-36); Mean Corpuscular Hgb 29.2 pg (27.0-32.0); Mean Corpuscular Volume 88.9 fL (81-99); Mean Platelet Vol. 9.1 fl (6.2-12.0); Monocyte# 0.26 X10^3/uL; Monocyte% 3.6 % (0-10); NRBC Flagged by Analyzer 0.4 % (0-5); Neutrophil # 6.35 X10^3/uL (2.7-7.7); Neutrophil % 88.7 % (47-70); POSITIVE DIFFERENTIAL YES; Platelet Count 161 K/mm3 (150-450); RBC Distribution Width CV 15.6 % (11.6-14.6); RBC Distribution Width SD 49.1 fl (35.1-43.9); Red Blood Count 3.05 M/mm3 (4.2-5.4); White Blood Count 7.2 K/mm3 (4.4-11.0)
[2021-07-28 03:57] LABS: Anion Gap 6 (5-15); BUN 39 mg/dL (7-18); BUN/Creat Ratio 24.5 RATIO (10-20); Calcium,Total 7.8 mg/dL (8.5-10.1); Chloride 97 mmol/L (98-107); Creatinine, Serum 1.59 mg/dL (0.55-1.02); EST Glomerular Filtration Rate 35 mL/min (>60); Est Glom Filt Rate - Afr Amer 42 mL/min (>60); Estimated Creatinine Clearance 28.64 ml/min; Glucose 166 mg/dL (74-106); Potassium 4.2 mmol/L (3.5-5.1); Sodium Level 131 mmol/L (136-145)
[2021-07-28 04:14] LABS: Anisocytosis 1+
[2021-07-28] MEDS: Hydrocortisone Sod Succinate 100 MG/2 ML Vial IV (05:31)
[2021-07-28] MEDS: LORazepam 2 MG/ML Syringe 1 MG IV ×5 (05:31→23:45)
[2021-07-28] MEDS: TITRATION PARAMETER CHANGE 1 EACH IV (05:31)
--- NOTE | 2021-07-28 06:22 | PN.CC_ITS ---
Assessment & Plan Assessment/Plan (1) COVID-19: (2) Influenza B: PLAN: RECOMMENDATIONS: 1. Continue to wean FiO2 and PEEP for saturations greater than 90%. 2. Continue nutritional support via PEG tube. 3. Additional titration of oxycodone and Ativan as needed. 4. Continue PPI therapy twice daily. 5. Will decrease stress dose steroids today. 6. Awaiting LTAC disposition. IMPRESSIONS: 1. Acute hypoxemic respiratory failure secondary to COVID-19/influenza B The patient was initially admitted to the hospital on June 27 and sub sequently tested positive for both COVID-19 and influenza. The patient is vaccinated at her baseline. However, she is immunosuppressed due to a history of a liver transplant. The patient's oxygenation status progressively worsened over the course of her hospitalization, ultimately culminating in intubation on July 06. The patient completed a treatment course of Tamiflu, but was not a candidate for baricitinib. She has also completed treatment courses of antimicrobials and was treated with antifungals for a period of time. Recommend ongoing volume optimization through hemodialysis per nephrology recommendations. The patient did undergo successful tracheostomy on July 23. Continue to wean FiO2 and PEEP as tolerated for saturations greater than 90%. LTAC disposition is pending. 2. Distributive shock/relative adrenal insufficiency Resolved. Likely multifactorial with underlying infection and hemodynamic effects of sedative medication use contributing. The patient has been weaned from vasopressor support and remains on stress dose steroids, which will be weaned as tolerated. 3. Acute kidney injury Likely secondary to ischemic ATN in the setting of #1. Nephrology is currently following to assist with hemodialysis needs and volume removal. 4. Chronic baseline immunosuppressed state secondary to liver transplantation Continue baseline outpatient immunosuppressive regimen, with the exception of CellCept. Tacrolimus levels were within therapeutic limits. 5. Anemia Stool for occult blood was positive earlier in the hospitalization and patient did have some bleeding following the trach. The patient has responded appropriately to transfusion of blood products. Continue PPI therapy. 6. Morbid obesity/asthma/hypothyroidism/hyperlipidemia/GERD Complicates care, management, recovery and prognosis. Continue home medications as indicated. TIME: 32 minutes of critical care time, independent of procedures, was spent addressing the patient's acute hypoxemic respiratory failure secondary to COVID- 19/influenza, relative adrenal insufficiency, acute kidney injury, anemia, review of all data and collaboration with the care team. Subjective Subjective The patient was seen and examined at the bedside this morning. Events from the last 24 hours have been reviewed. Today's ventilator day #23. The patient is currently afebrile, hemodynamically stable and maintaining appropriate oxygen saturations on assist control mode of mechanical ventilation with an FiO2 requirement of 55% and PEEP of 10. The patient continues to fail spontaneous breathing trials. Her pain and anxiolytic medication regimen were augmented yesterday in hopes of weaning her from Precedex and fentanyl. She is documented to be overall net +27 L for the hospitalization. She continues to tolerate tube feeds. The patient did tolerate dialysis yesterday. Objective Data Objective Data The patient's most recent lab work, culture data and imaging studies have all b een personally reviewed. Coronavirus PCR was positive on June 26. Influenza screen was positive for flu B. Vital Signs: Vital Signs Temp Pulse Resp BP Pulse Ox 98 F 87 15 114/53 L 90 07/28/21 04:00 07/28/21 06:00 07/28/21 06:00 07/28/21 06:00 07/28/21 06:00 Oxygen Flow Rate (L/min) [ 3 AMBULATING with Oxygen #1] Oxygen Flow Rate (L/min) 100 Oxygen Delivery Method Mechanical Ventilator Weight: 122.1 kg Body Mass Index (BMI) 44.5 Intake & Output: Intake and Output for Last 24 Hours 07/26/21 07/27/21 07/28/21 23:59 23:59 23:59 Intake Total 2564.00 / 2834.00 3841.91 / 4059.21 453.22 / 453.22 Output Total 200 / 350 2450 / 2500 100 / 100 Balance 2364.00 / 2484.00 1391.91 / 1559.21 353.22 / 353.22 Lab / Micro Data Attestation: I reviewed the patient's lab results. Result Diagrams: 07/28/21 03:30 07/28/21 03:30 Labs: Laboratory Results - last 24 hr 07/27/21 16:30: Sodium 132 L, Potassium 3.2 L, Chloride 99, Carbon Dioxide 28.0, Anion Gap 5, BUN 28 H, Creatinine 1.31 H, Estim Creat Clear Calc 34.77, Est GFR (MDRD) Af Amer 53 L, Est GFR (MDRD) Non-Af 44 L, BUN/Creatinine Ratio 21.4 H, Glucose 161 H, Calcium 7.8 L 07/28/21 03:30: WBC 7.2, RBC 3.05 L, Hgb 8.9 L, Hct 27.1 L, MCV 88.9, MCH 29.2, MCHC 32.8, RDW Std Deviation 49.1 H, RDW Coeff of Tyrell 15.6 H, Plt Count 161, MPV 9.1, Immature Gran % (Auto) 3.500 H, Neut % (Auto) 88.7 H, Lymph % (Auto) 4.0 L, [place] % (Auto) 3.6, Eos % (Auto) 0.1, Baso % (Auto) 0.1, Absolute Neuts (auto) 6.4, Absolute Lymphs (auto) 0.29 L, Nucleated RBC % 0.4, Anisocytosis 1+ 07/28/21 03:30: Sodium 131 L, Potassium 4.2, Chloride 97 L, Carbon Dioxide 28.0, Anion Gap 6, BUN 39 H, Creatinine 1.59 H, Estim Creat Clear Calc 28.64, Est GFR (MDRD) Af Amer 42 L, Est GFR (MDRD) Non-Af 35 L, BUN/Creatinine Ratio 24.5 H, Glucose 166 H, Calcium 7.8 L Micro: Microbiology 07/18/21 11:20 Stool C. difficile DNA Amplification - Final 07/18/21 11:20 Stool Stool Occult Blood (ROSEMARIE) - Final Occult Blood Positive 07/11/21 15:00 Blood Culture (Wb) - Right Wrist Blood Culture - Final No growth in 5 days. 07/11/21 15:15 Blood Culture (Wb) - Right Hand Blood Culture - Final No growth in 5 days. 07/11/21 15:00 Urine Catheter - Richardson Urine Culture - Final Yeast, not Rosio albicans 07/11/21 15:25 Sputum, Induced/Lukens Gram Stain - Final 07/11/21 15:25 Sputum, Induced/Lukens Respiratory Culture - Final Coag Negative Staph 07/06/21 11:20 Sputum, Induced/Lukens Gram Stain - Final 07/06/21 11:20 Sputum, Induced/Lukens Respiratory Culture - Final Culture exhibits no growth. 06/28/21 12:01 Blood Culture (Wb) - Right Hand Blood Culture - Final No growth in 5 days. 06/28/21 11:52 Blood Culture (Wb) - Left Hand Blood Culture - Final No growth in 5 days. 06/26/21 20:35 Urine, Clean Catch Streptococcus pneumoniae Antigen (M - Final 06/26/21 20:35 Urine, Clean Catch Legionella Antigen - Final 06/28/21 16:50 Mucosa - Nasopharyngeal Influenza Types A,B Direct FA (ROSEMARIE) - Final Influenzae B 06/26/21 20:35 Urine, Clean Catch Urine Culture - Final Escherichia coli Physical Exam Const no apparent distress General Appearance: patient mechanically ventilated Nutritional Appearance: morbidly obese HEENT normocephalic and head/scalp atraumatic Eyes PERRL and conjunctivae normal Neck supple Neck Narrative: Tracheostomy site is C/D/I General: trachea midline Chest inspection of chest normal Resp Effort and Inspection: tachypneic Auscultation: diminished lung sounds; Negative for rales, rhonchi or wheezes Cardio regular rate, regular rhythm, S1 normal heart sound and S2 normal heart sound GI normal to inspection, nondistended, normoactive bowel sounds GI Narrative: PEG site intact. Extremity General Extremity: edema; Negative for clubbing Skin no rashes or lesions noted Neuro Sensorium / Orientation: sedated on vent Charges/Coding Procedures Hospitalists Procedures: 79354 Critial Care 1st Hr
[2021-07-28] MEDS: oxyCODONE 5 MG Tablet 20 MG PO ×4 (08:13→20:49)
[2021-07-28] MEDS: Aspirin 81 MG TAB.CHEW GT (08:33)
[2021-07-28] MEDS: Menthol/Lanolin/Calamine/Znox 113 GM Tube 1 APPLIC TOPICAL ×2 (08:33→22:38)
[2021-07-28] MEDS: Chlorhexidine 15 ML PO ×2 (08:33→22:36)
[2021-07-28] MEDS: Calcium (Elemental) 500 MG Tablet GT ×2 (08:34→22:33)
[2021-07-28] MEDS: Tacrolimus Anhydrous 1 MG Capsule 2 MG GT ×2 (08:35→22:29)
[2021-07-28] MEDS: QUEtiapine 100 MG Tablet 200 MG PO ×2 (08:36→22:30)
[2021-07-28] MEDS: Ursodiol 250 MG Tablet GT ×2 (08:41→22:34)
[2021-07-28] MEDS: Tacrolimus 0.5 MG Capsule GT ×2 (08:42→22:32)
[2021-07-28] MEDS: Levothyroxine 88 MCG Tablet GT (08:43)
[2021-07-28] MEDS: Cholecalciferol (VIT D3) 25 MCG TABLET (1,000 UNITS) 50 MCG GT (08:43)
--- NOTE | 2021-07-28 09:23 | PN.RENAL_ITS ---
Subjective Subjective Following for OPAL No overnight events. On vent Objective Data Objective Data Vital Signs: Vital Signs Temp Pulse Resp BP Pulse Ox 98 F 88 17 129/60 H 87 07/28/21 04:00 07/28/21 07:00 07/28/21 07:00 07/28/21 07:00 07/28/21 07:00 Oxygen Flow Rate (L/min) [ 3 AMBULATING with Oxygen #1] Oxygen Flow Rate (L/min) 100 Oxygen Delivery Method Mechanical Ventilator Weight: 122.1 kg Body Mass Index (BMI) 44.5 Intake & Output: Intake and Output for Last 24 Hours 07/26/21 07/27/21 07/28/21 23:59 23:59 23:59 Intake Total 2564.00 / 2834.00 3841.91 / 4059.21 462.61 / 462.61 Output Total 200 / 350 2450 / 2500 100 / 100 Balance 2364.00 / 2484.00 1391.91 / 1559.21 362.61 / 362.61 Lab / Micro Data Result Diagrams: 07/28/21 03:30 07/28/21 03:30 Labs: Laboratory Results - last 24 hr 07/27/21 16:30: Sodium 132 L, Potassium 3.2 L, Chloride 99, Carbon Dioxide 28.0, Anion Gap 5, BUN 28 H, Creatinine 1.31 H, Estim Creat Clear Calc 34.77, Est GFR (MDRD) Af Amer 53 L, Est GFR (MDRD) Non-Af 44 L, BUN/Creatinine Ratio 21.4 H, Glucose 161 H, Calcium 7.8 L 07/28/21 03:30: WBC 7.2, RBC 3.05 L, Hgb 8.9 L, Hct 27.1 L, MCV 88.9, MCH 29.2, MCHC 32.8, RDW Std Deviation 49.1 H, RDW Coeff of Tyrell 15.6 H, Plt Count 161, MPV 9.1, Immature Gran % (Auto) 3.500 H, Neut % (Auto) 88.7 H, Lymph % (Auto) 4.0 L, [place] % (Auto) 3.6, Eos % (Auto) 0.1, Baso % (Auto) 0.1, Absolute Neuts (auto) 6.4, Absolute Lymphs (auto) 0.29 L, Nucleated RBC % 0.4, Anisocytosis 1+ 07/28/21 03:30: Sodium 131 L, Potassium 4.2, Chloride 97 L, Carbon Dioxide 28.0, Anion Gap 6, BUN 39 H, Creatinine 1.59 H, Estim Creat Clear Calc 28.64, Est GFR (MDRD) Af Amer 42 L, Est GFR (MDRD) Non-Af 35 L, BUN/Creatinine Ratio 24.5 H, Glucose 166 H, Calcium 7.8 L Micro: Microbiology 07/18/21 11:20 Stool C. difficile DNA Amplification - Final 07/18/21 11:20 Stool Stool Occult Blood (ROSEMARIE) - Final Occult Blood Positive 07/11/21 15:00 Blood Culture (Wb) - Right Wrist Blood Culture - Final No growth in 5 days. 07/11/21 15:15 Blood Culture (Wb) - Right Hand Blood Culture - Final No growth in 5 days. 07/11/21 15:00 Urine Catheter - Richardson Urine Culture - Final Yeast, not Rosio albicans 07/11/21 15:25 Sputum, Induced/Lukens Gram Stain - Final 07/11/21 15:25 Sputum, Induced/Lukens Respiratory Culture - Final Coag Negative Staph 07/06/21 11:20 Sputum, Induced/Lukens Gram Stain - Final 07/06/21 11:20 Sputum, Induced/Lukens Respiratory Culture - Final Culture exhibits no growth. 06/28/21 12:01 Blood Culture (Wb) - Right Hand Blood Culture - Final No growth in 5 days. 06/28/21 11:52 Blood Culture (Wb) - Left Hand Blood Culture - Final No growth in 5 days. 06/26/21 20:35 Urine, Clean Catch Streptococcus pneumoniae Antigen (M - Final 06/26/21 20:35 Urine, Clean Catch Legionella Antigen - Final 06/28/21 16:50 Mucosa - Nasopharyngeal Influenza Types A,B Direct FA (ROSEMARIE) - Final Influenzae B 06/26/21 20:35 Urine, Clean Catch Urine Culture - Final Escherichia coli Physical Exam Narrative Const: On vent. NAD noted Neck: Tracheostomy tube intact and connected to ventilator Cardio: Normal S1 S2 Resp: Coarse breath sounds anteriorly Abdomen: Normal bowel sounds Extremities: edema to b/l lower legs, feet and hands tunneled Right IJ HD catheter dressing C/D/I Assessment & Plan Assessment/Plan (1) OPAL (acute kidney injury): PLAN: -OPAL is likely due to ischemic ATN related to sepsis. The patient remains oliguric. Tunneled HD catheter placed 07/24/2021. -Dialysis was initiated on 07/08/2021. -On MWF dialysis schedule. -No renal recovery noted at this time. - patient tolerated HD 07/27 and did not need to go back on pressors, UF ~2L. She did tolerate 3.6L UF with HD on 07/24. Will likely plan for HD tomorrow over 4hrs and attempt ~3-4L as pt/bp tolerates. (2) Chronic kidney disease, stage 3a: PLAN: -Baseline serum creatinine is 1.4 mg/dL. 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 -On tacrolimus, mycophenolate, and prednisone. Mycophenolate is on hold as per transplant team recommendation due to COVID-19 infection. -The patient is also being followed by GI. -Being treated for esophageal candidiasis with econazole. (4) Acute respiratory failure with hypoxia: PLAN: -The patient is ventilator dependent. -She has finished treatment course for COVID-19 and influenza B. -UF as possible with HD (limited by low BP).
--- NOTE | 2021-07-28 09:31 | CASEMGMT ---
RN SHAUNA called and updated Alf at [facility] regarding vent settings and sedation gtts. Per Happy, [employer] requires patient to be off sedation gtts for 24 hrs and Fio2 60% or less and Peep of 10 or less. RN SHANUA updated Dr. Akins and ICU nurse. Patient is currently being weaned off sedation gtts. CM faxed clinicals to [facility]. CM will continue to follow this patient and plan for safe discharge.
[2021-07-28] MEDS: NEPRO TUBE FEED 1,000 ML 45 ML GT (09:42)
--- NOTE | 2021-07-28 09:46 | PN.HOSP_ITS ---
Subjective Subjective Patient seen and examined. She remains intubated and sedated. RASS score is 0. She is able to open her eyes in response to voice. No active events overnight. Today is . She had dialysis yesterday Objective Data Objective Data Vital Signs: Vital Signs Temp Pulse Resp BP Pulse Ox 98 F 88 17 129/60 H 87 07/28/21 04:00 07/28/21 07:00 07/28/21 07:00 07/28/21 07:00 07/28/21 07:00 Oxygen Flow Rate (L/min) [ 3 AMBULATING with Oxygen #1] Oxygen Flow Rate (L/min) 100 Oxygen Delivery Method Mechanical Ventilator Weight: 269 lb 2.951 oz Body Mass Index (BMI) 44.5 Intake & Output: Intake and Output for Last 24 Hours 07/26/21 07/27/21 07/28/21 23:59 23:59 23:59 Intake Total 2564.00 / 2834.00 3841.91 / 4059.21 462.61 / 462.61 Output Total 200 / 350 2450 / 2500 100 / 100 Balance 2364.00 / 2484.00 1391.91 / 1559.21 362.61 / 362.61 Lab / Micro Data Result Diagrams: 07/28/21 03:30 07/28/21 03:30 Labs: Laboratory Results - last 24 hr 07/27/21 16:30: Sodium 132 L, Potassium 3.2 L, Chloride 99, Carbon Dioxide 28.0, Anion Gap 5, BUN 28 H, Creatinine 1.31 H, Estim Creat Clear Calc 34.77, Est GFR (MDRD) Af Amer 53 L, Est GFR (MDRD) Non-Af 44 L, BUN/Creatinine Ratio 21.4 H, Glucose 161 H, Calcium 7.8 L 07/28/21 03:30: WBC 7.2, RBC 3.05 L, Hgb 8.9 L, Hct 27.1 L, MCV 88.9, MCH 29.2, MCHC 32.8, RDW Std Deviation 49.1 H, RDW Coeff of Tyrell 15.6 H, Plt Count 161, MPV 9.1, Immature Gran % (Auto) 3.500 H, Neut % (Auto) 88.7 H, Lymph % (Auto) 4.0 L, Nicholas % (Auto) 3.6, Eos % (Auto) 0.1, Baso % (Auto) 0.1, Absolute Neuts (auto) 6.4, Absolute Lymphs (auto) 0.29 L, Nucleated RBC % 0.4, Anisocytosis 1+ 07/28/21 03:30: Sodium 131 L, Potassium 4.2, Chloride 97 L, Carbon Dioxide 28.0, Anion Gap 6, BUN 39 H, Creatinine 1.59 H, Estim Creat Clear Calc 28.64, Est GFR (MDRD) Af Amer 42 L, Est GFR (MDRD) Non-Af 35 L, BUN/Creatinine Ratio 24.5 H, Glucose 166 H, Calcium 7.8 L Micro: Microbiology 07/18/21 11:20 Stool C. difficile DNA Amplification - Final 07/18/21 11:20 Stool Stool Occult Blood (ROSEMARIE) - Final Occult Blood Positive 07/11/21 15:00 Blood Culture (Wb) - Right Wrist Blood Culture - Final No growth in 5 days. 07/11/21 15:15 Blood Culture (Wb) - Right Hand Blood Culture - Final No growth in 5 days. 07/11/21 15:00 Urine Catheter - Richardson Urine Culture - Final Yeast, not Rosio albicans 07/11/21 15:25 Sputum, Induced/Lukens Gram Stain - Final 07/11/21 15:25 Sputum, Induced/Lukens Respiratory Culture - Final Coag Negative Staph 07/06/21 11:20 Sputum, Induced/Lukens Gram Stain - Final 07/06/21 11:20 Sputum, Induced/Lukens Respiratory Culture - Final Culture exhibits no growth. 06/28/21 12:01 Blood Culture (Wb) - Right Hand Blood Culture - Final No growth in 5 days. 06/28/21 11:52 Blood Culture (Wb) - Left Hand Blood Culture - Final No growth in 5 days. 06/26/21 20:35 Urine, Clean Catch Streptococcus pneumoniae Antigen (M - Final 06/26/21 20:35 Urine, Clean Catch Legionella Antigen - Final 06/28/21 16:50 Mucosa - Nasopharyngeal Influenza Types A,B Direct FA (ROSEM[facility]IE) - Final Influenzae B 06/26/21 20:35 Urine, Clean Catch Urine Culture - Final Escherichia coli Physical Exam Const Constitutional Narrative: intubated, Sedated, RASS score is 0; she is able to open her eyes in response to voice. General Appearance: intubated and patient mechanically ventilated Exam Limitations: altered mental status Nutritional Appearance: morbidly obese HEENT normocephalic, head/scalp atraumatic and moist oral mucous membranes Eyes PERRL, EOMs intact bilaterally and conjunctivae normal Neck no lymphadenopathy, supple and no JVD Neck Narrative: tracheostomy in place Resp normal respiratory effort, no retractions and no use of accessory muscles Resp Narrative: has a trach in place, intubated via trach and on the ventilator. Sedated. RASS score is 0 Auscultation: diminished lung sounds; Negative for crackles, rales, rhonchi or wheezes Cardio regular rate, regular rhythm, S1 normal heart sound, S2 normal heart sound, no murmurs, no rub, no gallops, no clicks and no JVD GI normal to inspection, nondistended, normoactive bowel sounds, soft to palpation, non-tender and non-distended; Negative for hepatosplenomegaly GI Narrative: obese Extremity normal to inspection and no clubbing, cyanosis or edema Peripheral Pulses: Yes pulses 2+ throughout Skin no rashes or lesions noted, no wounds, skin turgor normal, no jaundice, no petechiae and no mottling Neuro Neuro Narrative: Intubated, sedated, RASS score is 0 Sensorium / Orientation: sedated on vent Psych Psych Narrative: Appearance: intubated Assessment & Plan Assessment/Plan (1) Acute respiratory failure with hypoxia: (2) Influenza B: (3) COVID-19: PLAN: #Acute hypoxic respiratory failure due to covid 19 infection and influenza B, with superimposed bacterial pneumonia * remains intubated and sedated. Intubated on 07/06/2021. Today is day 23 since intubation * has a trach and PEG tube in place. * unable to tolerate spontaneous breathing trial * completed a course of tamiflu and decadron * not a candidate for baricitinib as she has a history of liver transplant * had received covid vaccination, but was immunocompromised on Cellcept, tacrolimus and prednisone due to liver transplant * critical care and ID on board * #Candidal esophagitis * on fluconazole * ID on board. * #Relative adrenal insufficiency with distributive shock * resolved. Now on stress dose steroids. * #Steroid-induced hyperglycemia: Continue to monitor. If sugars elevated will add on sliding scale. #OPAL on CKD stage III * Thought to be due to ischemic ATN. * Patient now on dialysis. Nephrology on board. * Had a tunneled dialysis catheter placed on 07/24/2021. * For dialysis Wednesdays and Fridays * tolerated dialysis yesterday * #Autoimmune hepatitis s/p liver transplant * On tacrolimus and steroids. CellCept on hold * On rifaximin. Lactulose stopped on account of diarrhea. * On ursodiol and on Bactrim for PCP prophylaxis * #Acute on chronic normocytic anemia * S/p transfusion of a total of 4 units in this admission. * On IV PPI 40 mg twice daily. * Stool for occult blood was positive on 07/18/2021. * Hb today is 9.5 * #History of asthma: On breathing treatments bronchodilators. Currently intubated. #Hypothyroidism: On Synthroid #GERD: On IV Protonix 40 mg twice daily #Hyperlipidemia: On statin DVT prophylaxis: SCDs Nutrition: On tube feeding CODE STATUS: Patient remains full code Disposition: Awaiting discharge to LTAC. Case management on board. Charges/Coding Visit Charges Inpatient E&M: 92454 Subs Hosp L2
--- NOTE | 2021-07-28 10:00 | NURSING ---
fentanyl gtt & precedex gtt off @ this time
[2021-07-28] MEDS: rifAXIMin 550 MG Tablet GT ×2 (10:06→22:35)
[2021-07-28] MEDS: Hydrocortisone Sod Succinate 100 MG/2 ML Vial 50 MG IV ×2 (13:29→22:30)
[2021-07-28] MEDS: Labetalol (Prefilled) 20 MG/4 ML 10 MG IV (20:24)
[2021-07-28] MEDS: Atorvastatin Calcium 10 MG Tablet GT (22:35)
[2021-07-28] MEDS: Acetaminophen 650 MG/20 ML UDC GT (22:50)
[2021-07-29] VITALS (33 sets, daily range): BP systolic 88–194; BP diastolic 46–107; PULSE 88–115; RESP 13–34; TEMP 36.4–37.3; O2SAT 79–99
[2021-07-29] MEDS: oxyCODONE 5 MG Tablet 20 MG PO ×5 (02:35→21:01)
[2021-07-29] MEDS: LORazepam 2 MG/ML Syringe 1 MG IV ×4 (03:48→19:47)
[2021-07-29 04:08] LABS: Absolute Lymphocyte Count 0.43 X10^3/uL (0.83-4.51); Absolute Neutrophil Count 7.8 X10^3/uL (2.0-7.7); Basophil# 0.01 X10^3/uL; Basophil% 0.1 % (0-1); Eosinophil# 0.04 X10^3/uL; Eosinophils% 0.4 % (0-5); Hematocrit 29.8 % (37-47); Hemoglobin 9.9 g/dL (12.0-15.0); Lymphocyte # 0.43 X10^3/ul (0.83-4.51); Lymphocyte % 4.6 % (19-41); Mean Corp Hgb Conc 33.2 g/dL (32-36); Mean Corpuscular Hgb 29.6 pg (27.0-32.0); Mean Corpuscular Volume 89.2 fL (81-99); Mean Platelet Vol. 9.4 fl (6.2-12.0); Monocyte% 5.4 % (0-10); NRBC Flagged by Analyzer 0 % (0-5); Neutrophil # 7.81 X10^3/uL (2.7-7.7); Neutrophil % 84.5 % (47-70); POSITIVE COUNT YES; POSITIVE DIFFERENTIAL YES; POSITIVE MORPHOLOGY YES; Platelet Count 189 K/mm3 (150-450); RBC Distribution Width CV 15.9 % (11.6-14.6); RBC Distribution Width SD 51.5 fl (35.1-43.9); Red Blood Count 3.34 M/mm3 (4.2-5.4); White Blood Count 9.3 K/mm3 (4.4-11.0)
[2021-07-29 04:09] LABS: Differential Indicated SCAN CRITERIA MET
[2021-07-29 04:28] LABS: Anisocytosis 1+
[2021-07-29 04:38] LABS: BUN 49 mg/dL (7-18); BUN/Creat Ratio 28.7 RATIO (10-20); Calcium,Total 8.2 mg/dL (8.5-10.1); Chloride 96 mmol/L (98-107); Creatinine, Serum 1.71 mg/dL (0.55-1.02); EST Glomerular Filtration Rate 32 mL/min (>60); Est Glom Filt Rate - Afr Amer 39 mL/min (>60); Estimated Creatinine Clearance 26.63 ml/min; Glucose 158 mg/dL (74-106); Phosphorus 3.5 mg/dL (2.5-4.9); Potassium 4.3 mmol/L (3.5-5.1); Sodium Level 129 mmol/L (136-145)
--- NOTE | 2021-07-29 06:06 | PCM.PN.INT ---
Assessment & Plan Assessment/Plan (1) COVID-19: (2) Influenza B: PLAN: RECOMMENDATIONS: 1. Continue to wean FiO2 and PEEP for saturations greater than 90%. 2. Continue nutritional support via PEG tube. 3. Continue as needed pain and anxiolytic regimen. 4. Continue PPI therapy twice daily. 5. Continue to wean stress dose steroids. Plan to discontinue completely tomorrow. 6. Awaiting LTAC disposition. IMPRESSIONS: 1. Acute hypoxemic respiratory failure secondary to COVID-19/influenza B The patient was initially admitted to the hospital on June 27 and subsequently tested positive for both COVID-19 and influenza. The patient is vaccinated at her baseline. However, she is immunosuppressed due to a history of a liver transplant. The patient's oxygenation status progressively worsened over the course of her hospitalization, ultimately culminating in intubation on July 06. The patient completed a treatment course of Tamiflu, but was not a candidate for baricitinib. She has also completed treatment courses of antimicrobials and was treated with antifungals for a period of time. Recommend ongoing volume optimization through hemodialysis per nephrology recommendations. The patient did undergo successful tracheostomy on July 23. Continue to wean FiO2 and PEEP as tolerated for saturations greater than 90%. LTAC disposition is pending. 2. Distributive shock/relative adrenal insufficiency Resolved. Likely multifactorial with underlying infection and hemodynamic effects of sedative medication use contributing. The patient has been weaned from vasopressor support and remains on stress dose steroids, which will be weaned as tolerated. 3. Acute kidney injury Likely secondary to ischemic ATN in the setting of #1. Nephrology is currently following to assist with hemodialysis needs and volume removal. 4. Chronic baseline immunosuppressed state secondary to liver transplantation Continue baseline outpatient immunosuppressive regimen, with the exception of CellCept. Tacrolimus levels were within therapeutic limits. 5. Anemia Stool for occult blood was positive earlier in the hospitalization and patient did have some bleeding following the trach. The patient has responded appropriately to transfusion of blood products. Continue PPI therapy. 6. Morbid obesity/asthma/hypothyroidism/hyperlipidemia/GERD Complicates care, management, recovery and prognosis. Continue home medications as indicated. TIME: 30 minutes of critical care time, independent of procedures, was spent addressing the patient's acute hypoxemic respiratory failure secondary to COVID-19/influenza, relative adrenal insufficiency, acute kidney injury, anemia, review of all data and collaboration with the care team. Subjective Subjective The patient was seen and examined at the bedside this morning. Events from the last 24 hours have been reviewed. Today's ventilator day #24. The patient is currently afebrile, hemodynamically stable and maintaining appropriate oxygen saturations on assist control mode of mechanical ventilation with an FiO2 requirement of 60% and PEEP of 10. The patient continues to fail spontaneous breathing trials. The patient was able to be weaned off of her Precedex and fentanyl drips yesterday at 10 AM. She remains on as needed Ativan and oxycodone. She continues to tolerate tube feeds. The patient remains on a Tuesday, Tuesday, Tuesday dialysis schedule. Objective Data Objective Data The patient's most recent lab work, culture data and imaging studies have all been personally reviewed. Coronavirus PCR was positive on June 26. Influenza screen was positive for flu B. Vital Signs: Vital Signs Temp Pulse Resp BP Pulse Ox 98.1 F 98 16 167/92 H 93 07/29/21 05:00 07/29/21 05:00 07/29/21 05:00 07/29/21 05:00 07/29/21 05:00 Oxygen Flow Rate (L/min) [ 3 AMBULATING with Oxygen #1] Oxygen Flow Rate (L/min) 100 Oxygen Delivery Method Mechanical Ventilator Weight: 122.6 kg Body Mass Index (BMI) 44.5 Intake & Output: Intake and Output for Last 24 Hours 07/27/21 07/28/21 07/29/21 23:59 23:59 23:59 Intake Total 3841.91 / 4059.21 746.24 / 2170.24 1789.25 / 1789.25 Output Total 2450 / 2500 445 / 695 250 / 250 Balance 1391.91 / 1559.21 301.24 / 1475.24 1539.25 / 1539.25 Lab / Micro Data Attestation: I reviewed the patient's lab results. Result Diagrams: 07/29/21 03:55 07/29/21 03:55 Labs: Laboratory Results - last 24 hr 07/29/21 03:55: WBC 9.3, RBC 3.34 L, Hgb 9.9 L, Hct 29.8 L, MCV 89.2, MCH 29.6, MCHC 33.2, RDW Std Deviation 51.5 H, RDW Coeff of Tyrell 15.9 H, Plt Count 189, MPV 9.4, Immature Gran % (Auto) 5.000 H, Neut % (Auto) 84.5 H, Lymph % (Auto) 4.6 L, Lamar % (Auto) 5.4, Eos % (Auto) 0.4, Baso % (Auto) 0.1, Absolute Neuts (auto) 7.8 H, Absolute Lymphs (auto) 0.43 L, Nucleated RBC % 0, Anisocytosis 1+ 07/29/21 03:55: Sodium 129 L, Potassium 4.3, Chloride 96 L, Carbon Dioxide 27.0, BUN 49 H, Creatinine 1.71 H, Estim Creat Clear Calc 26.63, Est GFR (MDRD) Af Amer 39 L, Est GFR (MDRD) Non-Af 32 L, BUN/Creatinine Ratio 28.7 H, Glucose 158 H, Calcium 8.2 L, Phosphorus 3.5, Albumin 2.0 L Micro: Microbiology 07/18/21 11:20 Stool C. difficile DNA Amplification - Final 07/18/21 11:20 Stool Stool Occult Blood (ROSEMARIE) - Final Occult Blood Positive 07/11/21 15:00 Blood Culture (Wb) - Right Wrist Blood Culture - Final No growth in 5 days. 07/11/21 15:15 Blood Culture (Wb) - Right Hand Blood Culture - Final No growth in 5 days. 07/11/21 15:00 Urine Catheter - Richardson Urine Culture - Final Yeast, not Rosio albicans 07/11/21 15:25 Sputum, Induced/Lukens Gram Stain - Final 07/11/21 15:25 Sputum, Induced/Lukens Respiratory Culture - Final Coag Negative Staph 07/06/21 11:20 Sputum, Induced/Lukens Gram Stain - Final 07/06/21 11:20 Sputum, Induced/Lukens Respiratory Culture - Final Culture exhibits no growth. 06/28/21 12:01 Blood Culture (Wb) - Right Hand Blood Culture - Final No growth in 5 days. 06/28/21 11:52 Blood Culture (Wb) - Left Hand Blood Culture - Final No growth in 5 days. 06/26/21 20:35 Urine, Clean Catch Streptococcus pneumoniae Antigen (M - Final 06/26/21 20:35 Urine, Clean Catch Legionella Antigen - Final 06/28/21 16:50 Mucosa - Nasopharyngeal Influenza Types A,B Direct FA ([facility]) - Final Influenzae B 06/26/21 20:35 Urine, Clean Catch Urine Culture - Final Escherichia coli Physical Exam Const no apparent distress General Appearance: patient mechanically ventilated Nutritional Appearance: morbidly obese HEENT normocephalic and head/scalp atraumatic Eyes PERRL and conjunctivae normal Neck supple Neck Narrative: Tracheostomy site is C/D/I General: trachea midline Chest inspection of chest normal Resp Effort and Inspection: tachypneic Auscultation: diminished lung sounds; Negative for rales, rhonchi or wheezes Cardio regular rate, regular rhythm, S1 normal heart sound and S2 normal heart sound GI normal to inspection, nondistended, normoactive bowel sounds GI Narrative: PEG site intact. Extremity General Extremity: edema; Negative for clubbing Skin no rashes or lesions noted Neuro Sensorium / Orientation: sedated on vent Charges/Coding Procedures Hospitalists Procedures: 99040 Critial Care 1st Hr
[2021-07-29] MEDS: Hydrocortisone Sod Succinate 100 MG/2 ML Vial 50 MG IV (08:12)
[2021-07-29] MEDS: Tacrolimus 0.5 MG Capsule GT ×2 (08:13→21:03)
[2021-07-29] MEDS: Tacrolimus Anhydrous 1 MG Capsule 2 MG GT ×2 (08:13→21:05)
[2021-07-29] MEDS: Polyethylene Glycol 3350 17 GM PACKET GT (08:13)
[2021-07-29] MEDS: rifAXIMin 550 MG Tablet GT ×2 (08:13→21:04)
[2021-07-29] MEDS: QUEtiapine 100 MG Tablet 200 MG PO ×2 (08:14→21:04)
[2021-07-29] MEDS: Levothyroxine 88 MCG Tablet GT (08:14)
[2021-07-29] MEDS: Ursodiol 250 MG Tablet GT ×2 (08:14→21:03)
[2021-07-29] MEDS: Cholecalciferol (VIT D3) 25 MCG TABLET (1,000 UNITS) 50 MCG GT (08:14)
[2021-07-29] MEDS: Smz/Tmp Ds Tablet 1 TABLET GT (08:15)
[2021-07-29] MEDS: Aspirin 81 MG TAB.CHEW GT (08:15)
[2021-07-29] MEDS: Calcium (Elemental) 500 MG Tablet GT ×2 (08:16→21:03)
[2021-07-29] MEDS: Menthol/Lanolin/Calamine/Znox 113 GM Tube 1 APPLIC TOPICAL ×2 (08:17→21:01)
[2021-07-29] MEDS: Chlorhexidine 15 ML PO ×2 (08:17→21:02)
[2021-07-29] MEDS: CHLORHEXIDINE GLUC 2% CLOTH 1 EACH TOWELETTE TOPICAL (08:18)
--- NOTE | 2021-07-29 09:29 | PN.RENAL_ITS ---
Documented by User: ALCIDES Benavides 07/29/21 09:36 Subjective Subjective Seen during dialysis, tolerating treatment well. No overnight events. Objective Data Objective Data Vital Signs: Vital Signs Temp Pulse Resp BP Pulse Ox 97.6 F L 94 17 123/56 H 90 07/29/21 08:00 07/29/21 09:00 07/29/21 09:00 07/29/21 09:00 07/29/21 09:00 Oxygen Flow Rate (L/min) [ 3 AMBULATING with Oxygen #1] Oxygen Flow Rate (L/min) 100 Oxygen Delivery Method Mechanical Ventilator Weight: 122.6 kg Body Mass Index (BMI) 44.5 Intake & Output: Intake and Output for Last 24 Hours 07/27/21 07/28/21 07/29/21 23:59 23:59 23:59 Intake Total 3841.91 / 4059.21 746.24 / 2170.24 2654.25 / 2654.25 Output Total 2450 / 2500 445 / 695 450 / 450 Balance 1391.91 / 1559.21 301.24 / 1475.24 2204.25 / 2204.25 Lab / Micro Data Result Diagrams: 07/29/21 03:55 07/29/21 03:55 Labs: Laboratory Results - last 24 hr 07/29/21 03:55: WBC 9.3, RBC 3.34 L, Hgb 9.9 L, Hct 29.8 L, MCV 89.2, MCH 29.6, MCHC 33.2, RDW Std Deviation 51.5 H, RDW Coeff of Tyrell 15.9 H, Plt Count 189, MPV 9.4, Immature Gran % (Auto) 5.000 H, Neut % (Auto) 84.5 H, Lymph % (Auto) 4.6 L, Duchesne % (Auto) 5.4, Eos % (Auto) 0.4, Baso % (Auto) 0.1, Absolute Neuts (auto) 7.8 H, Absolute Lymphs (auto) 0.43 L, Nucleated RBC % 0, Anisocytosis 1+ 07/29/21 03:55: Sodium 129 L, Potassium 4.3, Chloride 96 L, Carbon Dioxide 27.0, BUN 49 H, Creatinine 1.71 H, Estim Creat Clear Calc 26.63, Est GFR (MDRD) Af Amer 39 L, Est GFR (MDRD) Non-Af 32 L, BUN/Creatinine Ratio 28.7 H, Glucose 158 H, Calcium 8.2 L, Phosphorus 3.5, Albumin 2.0 L Micro: Microbiology 07/18/21 11:20 Stool C. difficile DNA Amplification - Final 07/18/21 11:20 Stool Stool Occult Blood (ROSEMARIE) - Final Occult Blood Positive 07/11/21 15:00 Blood Culture (Wb) - Right Wrist Blood Culture - Final No growth in 5 days. 07/11/21 15:15 Blood Culture (Wb) - Right Hand Blood Culture - Final No growth in 5 days. 07/11/21 15:00 Urine Catheter - Connelly Urine Culture - Final Yeast, not Rosio albicans 07/11/21 15:25 Sputum, Induced/Lukens Gram Stain - Final 07/11/21 15:25 Sputum, Induced/Lukens Respiratory Culture - Final Coag Negative Staph 07/06/21 11:20 Sputum, Induced/Lukens Gram Stain - Final 07/06/21 11:20 Sputum, Induced/Lukens Respiratory Culture - Final Culture exhibits no growth. 06/28/21 12:01 Blood Culture (Wb) - Right Hand Blood Culture - Final No growth in 5 days. 06/28/21 11:52 Blood Culture (Wb) - Left Hand Blood Culture - Final No growth in 5 days. 06/26/21 20:35 Urine, Clean Catch Streptococcus pneumoniae Antigen (M - Final 06/26/21 20:35 Urine, Clean Catch Legionella Antigen - Final 06/28/21 16:50 Mucosa - Nasopharyngeal Influenza Types A,B Direct FA (ROSEMARIE) - Final Influenzae B 06/26/21 20:35 Urine, Clean Catch Urine Culture - Final Escherichia coli Physical Exam Narrative Const: On vent. NAD noted Neck: Tracheostomy tube intact and connected to ventilator Cardio: Normal S1 S2 Resp: Coarse breath sounds anteriorly Abdomen: Normal bowel sounds Extremities: edema to b/l lower legs, feet and hands tunneled Right IJ HD catheter dressing C/D/I connelly clear yellow urine in bag/tubing Assessment & Plan Assessment/Plan (1) OPAL (acute kidney injury): PLAN: -OPAL is likely due to ischemic ATN multifactoral from shock, infection, hypotension. The patient remains oliguric and hypervolemic, at least net +25L. Tunneled HD catheter placed 07/24/2021. -Dialysis was initiated on 07/08/2021. -On MWF dialysis schedule. -No renal recovery noted at this time. -For dialysis today over 4hours and attempt ~3L UF. At start of HD attempting ~4L UF but goal reduced due to drop in bp. -Patient tolerated HD 07/27 and did not need to go back on pressors, UF ~2L. She did tolerate 3.6L UF with HD on 07/24. (2) Chronic kidney disease, stage 3a: PLAN: -Baseline serum creatinine is 1.4 mg/dL. (3) Immunosuppressed status: PLAN: -The patient is status post orthotopic liver transplantation for autoimmune hepatitis. -On tacrolimus, mycophenolate, and prednisone. Mycophenolate is on hold as per transplant team recommendation due to COVID-19 infection. -The patient is also being followed by GI. -Being treated for esophageal candidiasis with econazole. (4) Acute respiratory failure with hypoxia: PLAN: -The patient is ventilator dependent. -She has finished treatment course for COVID-19 and influenza B. -UF as possible with HD (limited by low BP). - discharge plans in progress for transfer to LTAC Documented by User: Dr. Conner Garcia MD 07/29/21 19:27 Objective Data Lab / Micro Data Result Diagrams: 07/29/21 03:55 07/29/21 03:55
--- NOTE | 2021-07-29 09:30 | CASEMGMT ---
Patient is currently off sedation gtts, Fio2@55%, and peep 10. EDWARD VILLATORO called and updated Alf at [facility]. EDWARD VILLATORO faxed updated clinicals and requested that precert be initiated. Alf states she will submit precert to [facility]. SHAUNA will continue to follow this patient and plan for a safe discharge.
--- NOTE | 2021-07-29 12:45 | CASEMGMT ---
EDWARD VILLATORO received call from Alf requesting HD information and updated nephrology documentation. EDWARD VILLATORO faxed updated clinical information to Alf at [facility]. Awaiting precert for discharge.
--- NOTE | 2021-07-29 12:50 | DIALYSIS ---
HD x 4 hours complete. Ran on 2k bath. UF of 3000ml. Used right chest wall dialysis catheter. Lumens closed with heparin per fill volume. Caps placed. Dressing is intact. Report was given to EDWARD Hardy.
[2021-07-29] MEDS: NEPRO TUBE FEED 1,000 ML 45 ML GT (13:02)
[2021-07-29] MEDS: Heparin 10,000 UNITS/10 ML Vial IV (14:24)
--- NOTE | 2021-07-29 14:44 | PN.HOSP_ITS ---
Subjective Subjective Patient seen and examined. She remains intubated and sedated. Remains on FiO2 of 60% and PEEP of 10. She continues to fail spontaneous breathing trials. Patient was weaned off of sedatives yesterday. She is on tube feeding. She is for dialysis today. Objective Data Objective Data Vital Signs: Vital Signs Temp Pulse Resp BP Pulse Ox 98.3 F 104 H 29 H 88/50 L 90 07/29/21 13:57 07/29/21 13:57 07/29/21 13:57 07/29/21 13:57 07/29/21 13:57 Oxygen Flow Rate (L/min) [ 3 AMBULATING with Oxygen #1] Oxygen Flow Rate (L/min) 100 Oxygen Delivery Method Mechanical Ventilator Weight: 270 lb 4.587 oz Body Mass Index (BMI) 44.5 Intake & Output: Intake and Output for Last 24 Hours 07/27/21 07/28/21 07/29/21 23:59 23:59 23:59 Intake Total 3841.91 / 4059.21 746.24 / 2170.24 3429.50 / 3429.50 Output Total 2450 / 2500 445 / 695 3800 / 3800 Balance 1391.91 / 1559.21 301.24 / 1475.24 -370.50 / -370.50 Lab / Micro Data Result Diagrams: 07/29/21 03:55 07/29/21 03:55 Labs: Laboratory Results - last 24 hr 07/29/21 03:55: WBC 9.3, RBC 3.34 L, Hgb 9.9 L, Hct 29.8 L, MCV 89.2, MCH 29.6, MCHC 33.2, RDW Std Deviation 51.5 H, RDW Coeff of Tyrell 15.9 H, Plt Count 189, MPV 9.4, Immature Gran % (Auto) 5.000 H, Neut % (Auto) 84.5 H, Lymph % (Auto) 4.6 L, [place] % (Auto) 5.4, Eos % (Auto) 0.4, Baso % (Auto) 0.1, Absolute Neuts (auto) 7.8 H, Absolute Lymphs (auto) 0.43 L, Nucleated RBC % 0, Anisocytosis 1+ 07/29/21 03:55: Sodium 129 L, Potassium 4.3, Chloride 96 L, Carbon Dioxide 27.0, BUN 49 H, Creatinine 1.71 H, Estim Creat Clear Calc 26.63, Est GFR (MDRD) Af Amer 39 L, Est GFR (MDRD) Non-Af 32 L, BUN/Creatinine Ratio 28.7 H, Glucose 158 H, Calcium 8.2 L, Phosphorus 3.5, Albumin 2.0 L Micro: Microbiology 07/18/21 11:20 Stool C. difficile DNA Amplification - Final 07/18/21 11:20 Stool Stool Occult Blood (ROSEMARIE) - Final Occult Blood Positive 07/11/21 15:00 Blood Culture (Wb) - Right Wrist Blood Culture - Final No growth in 5 days. 07/11/21 15:15 Blood Culture (Wb) - Right Hand Blood Culture - Final No growth in 5 days. 07/11/21 15:00 Urine Catheter - Richardson Urine Culture - Final Yeast, not Rosio albicans 07/11/21 15:25 Sputum, Induced/Lukens Gram Stain - Final 07/11/21 15:25 Sputum, Induced/Lukens Respiratory Culture - Final Coag Negative Staph 07/06/21 11:20 Sputum, Induced/Lukens Gram Stain - Final 07/06/21 11:20 Sputum, Induced/Lukens Respiratory Culture - Final Culture exhibits no growth. 06/28/21 12:01 Blood Culture (Wb) - Right Hand Blood Culture - Final No growth in 5 days. 06/28/21 11:52 Blood Culture (Wb) - Left Hand Blood Culture - Final No growth in 5 days. 06/26/21 20:35 Urine, Clean Catch Streptococcus pneumoniae Antigen (M - Final 06/26/21 20:35 Urine, Clean Catch Legionella Antigen - Final 06/28/21 16:50 Mucosa - Nasopharyngeal Influenza Types A,B Direct FA (ROSEMARIE) - Final Influenzae B 06/26/21 20:35 Urine, Clean Catch Urine Culture - Final Escherichia coli Physical Exam Const alert and oriented x3 Constitutional Narrative: intubated, RASS score is 0; off sedatives General Appearance: intubated and patient mechanically ventilated Exam Limitations: altered mental status Nutritional Appearance: morbidly obese HEENT normocephalic, head/scalp atraumatic and moist oral mucous membranes Head and Scalp: normocephalic Eyes PERRL, EOMs intact bilaterally and conjunctivae normal Eyes Narrative: No scleral icterus Neck no lymphadenopathy, supple and no JVD Neck Narrative: tracheostomy in place Resp normal respiratory effort, no retractions and no use of accessory muscles Resp Narrative: has a trach in place, intubated via trach and on the ventilator. Sedated. RASS score is 0 Auscultation: diminished lung sounds; Negative for crackles, rales, rhonchi or wheezes Cardio regular rate, regular rhythm, S1 normal heart sound, S2 normal heart sound, no murmurs, no rub, no gallops, no clicks and no JVD GI normal to inspection, nondistended, normoactive bowel sounds, soft to palpation, non-tender and non-distended; Negative for hepatosplenomegaly GI Narrative: obese Extremity normal to inspection and no clubbing, cyanosis or edema Extremity Narrative: Peripheral Pulses: Yes pulses 2+ throughout Skin no rashes or lesions noted, no wounds, skin turgor normal, no jaundice, no petechiae and no mottling Neuro Neuro Narrative: Intubated, RASS score is 0. Off sedatives since last 24 hours. Sensorium / Orientation: sedated on vent Psych Psych Narrative: Appearance: intubated Assessment & Plan Assessment/Plan (1) Acute respiratory failure with hypoxia: (2) COVID-19: (3) Influenza B: (4) Cirrhosis of liver: (5) Malnutrition: (6) Shock: PLAN: #Acute hypoxic respiratory failure due to covid 19 infection and influenza B, with superimposed bacterial pneumonia * remains intubated and sedated. Intubated on 07/06/2021. Today is day 24 since intubation * has a trach and PEG tube in place. * has failed spontaneous breathing trials several times * completed a course of tamiflu and decadron * not a candidate for baricitinib as she has a history of liver transplant * had received covid vaccination, but was immunocompromised on Cellcept, tacrolimus and prednisone due to liver transplant * critical care and ID on board * #Candidal esophagitis * on fluconazole * ID on board. * #Relative adrenal insufficiency with distributive shock * resolved. Now on stress dose steroids. * #Steroid-induced hyperglycemia: Continue to monitor. If sugars elevated will add on sliding scale. #OPAL on CKD stage III * Thought to be due to ischemic ATN. * Patient now on dialysis. Nephrology on board. * Had a tunneled dialysis catheter placed on 07/24/2021. * For dialysis Wednesdays and Fridays * for dialysis today * #Autoimmune hepatitis s/p liver transplant * On tacrolimus and steroids. CellCept on hold * On rifaximin. Lactulose stopped on account of diarrhea. * On ursodiol and on Bactrim for PCP prophylaxis * #Acute on chronic normocytic anemia * S/p transfusion of a total of 4 units in this admission. * On IV PPI 40 mg twice daily. * Stool for occult blood was positive on 07/18/2021. * Hb today is 9.9 * #History of asthma: On breathing treatments bronchodilators. Currently intubate d. #Hypothyroidism: On Synthroid #Chronic hyponatremia: sodium is 129 today. Will monitor #GERD: On IV Protonix 40 mg twice daily #Hyperlipidemia: On statin DVT prophylaxis: SCDs Nutrition: On tube feeding CODE STATUS: Patient remains full code Disposition: Awaiting discharge to LTAC. Case management on board. Charges/Coding Visit Charges Inpatient E&M: 05321 Subs Hosp L2
[2021-07-29] MEDS: Atorvastatin Calcium 10 MG Tablet GT (21:03)
[2021-07-30] VITALS (18 sets, daily range): BP systolic 89–142; BP diastolic 42–77; PULSE 89–107; RESP 16–30; TEMP 36.6–37; O2SAT 90–99
[2021-07-30] MEDS: LORazepam 2 MG/ML Syringe 1 MG IV ×2 (00:07→06:32)
[2021-07-30 03:41] LABS: Absolute Lymphocyte Count 0.48 X10^3/uL (0.83-4.51); Absolute Neutrophil Count 5.6 X10^3/uL (2.0-7.7); Basophil# 0.02 X10^3/uL; Basophil% 0.3 % (0-1); Eosinophil# 0.28 X10^3/uL; Eosinophils% 3.9 % (0-5); Hematocrit 28.7 % (37-47); Hemoglobin 9.2 g/dL (12.0-15.0); Lymphocyte # 0.48 X10^3/ul (0.83-4.51); Lymphocyte % 6.7 % (19-41); Mean Corp Hgb Conc 32.1 g/dL (32-36); Mean Corpuscular Volume 90.5 fL (81-99); Mean Platelet Vol. 9.2 fl (6.2-12.0); Monocyte# 0.66 X10^3/uL; Monocyte% 9.2 % (0-10); NRBC Flagged by Analyzer 0 % (0-5); Neutrophil # 5.56 X10^3/uL (2.7-7.7); Neutrophil % 77.7 % (47-70); POSITIVE DIFFERENTIAL YES; Platelet Count 147 K/mm3 (150-450); RBC Distribution Width CV 15.8 % (11.6-14.6); Red Blood Count 3.17 M/mm3 (4.2-5.4); White Blood Count 7.2 K/mm3 (4.4-11.0)
[2021-07-30 03:42] LABS: Differential Indicated SCAN CRITERIA MET
[2021-07-30 03:54] LABS: Anion Gap 4 (5-15); BUN 28 mg/dL (7-18); BUN/Creat Ratio 26.7 RATIO (10-20); Calcium,Total 7.9 mg/dL (8.5-10.1); Chloride 98 mmol/L (98-107); Creatinine, Serum 1.05 mg/dL (0.55-1.02); EST Glomerular Filtration Rate 56 mL/min (>60); Est Glom Filt Rate - Afr Amer 68 mL/min (>60); Estimated Creatinine Clearance 43.37 ml/min; Glucose 103 mg/dL (74-106); Potassium 3.1 mmol/L (3.5-5.1); Sodium Level 133 mmol/L (136-145)
[2021-07-30] MEDS: oxyCODONE 5 MG Tablet 20 MG PO (04:04)
[2021-07-30] MEDS: CHLORHEXIDINE GLUC 2% CLOTH 1 EACH TOWELETTE TOPICAL (06:10)
[2021-07-30] MEDS: Potassium Chloride 20mEq/100mL 20 MEQ/100 ML IV.SOLN. 100 MEQ IV BOLUS ×2 (06:24→07:52)
--- NOTE | 2021-07-30 07:09 | PN.CC_ITS ---
Assessment & Plan Assessment/Plan (1) COVID-19: (2) Influenza B: PLAN: RECOMMENDATIONS: 1. Continue to wean FiO2 and PEEP for saturations greater than 90%. 2. Continue nutritional support via PEG tube. 3. Continue as needed pain and anxiolytic regimen. 4. Continue PPI therapy twice daily. 5. Stop stress dose steroids today. 6. Potassium repletion as ordered. 7. Hopeful for LTAC disposition today. IMPRESSIONS: 1. Acute hypoxemic respiratory failure secondary to COVID-19/influenza B The patient was initially admitted to the hospital on June 27 and subsequently tested positive for both COVID-19 and influenza. The patient is vaccinated at her baseline. However, she is immunosuppressed due to a history of a liver transplant. The patient's oxygenation status progressively worsened over the course of her hospitalization, ultimately culminating in intubation on July 06. The patient completed a treatment course of Tamiflu, but was not a candidate for baricitinib. She has also completed treatment courses of antimi crobials and was treated with antifungals for a period of time. Recommend ongoing volume optimization through hemodialysis per nephrology recommendations. The patient did undergo successful tracheostomy on July 23. Continue to wean FiO2 and PEEP as tolerated for saturations greater than 90%. LTAC disposition is pending. 2. Distributive shock/relative adrenal insufficiency Resolved. Likely multifactorial with underlying infection and hemodynamic effects of sedative medication use contributing. The patient has been weaned from vasopressor support and stress dose steroids. 3. Acute kidney injury Likely secondary to ischemic ATN in the setting of #1. Nephrology is currently following to assist with hemodialysis needs and volume removal. 4. Chronic baseline immunosuppressed state secondary to liver transplantation Continue baseline outpatient immunosuppressive regimen, with the exception of CellCept. Tacrolimus levels were within therapeutic limits. 5. Anemia Stool for occult blood was positive earlier in the hospitalization and patient did have some bleeding following the trach. The patient has responded appropriately to transfusion of blood products. Continue PPI therapy. 6. Morbid obesity/asthma/hypothyroidism/hyperlipidemia/GERD Complicates care, management, recovery and prognosis. Continue home medications as indicated. TIME: 31 minutes of critical care time, independent of procedures, was spent addressing the patient's acute hypoxemic respiratory failure secondary to COVID- 19/influenza, relative adrenal insufficiency, acute kidney injury, anemia, review of all data and collaboration with the care team. Subjective Subjective The patient was seen and examined at the bedside this morning. Events from the last 24 hours have been reviewed. Today's ventilator day #25. The patient is currently afebrile, hemodynamically stable and maintaining appropriate oxygen saturations on assist control mode of mechanical ventilation with an FiO2 requirement of 55% and PEEP of 10. No overnight issues were identified by the nursing staff. She continues to tolerate tube feeds. The patient remains on a Tuesday, Tuesday, Tuesday dialysis schedule. Potassium was low this morning at 3.1. Replacement is underway. Objective Data Objective Data The patient's most recent lab work, culture data and imaging studies have all been personally reviewed. Coronavirus PCR was positive on June 26. Influenza screen was positive for flu B. Vital Signs: Vital Signs Temp Pulse Resp BP Pulse Ox 97.8 F 99 18 142/77 H 96 07/30/21 07:00 07/30/21 07:00 07/30/21 07:00 07/30/21 07:00 07/30/21 07:00 Oxygen Flow Rate (L/min) [ 3 AMBULATING with Oxygen #1] Oxygen Flow Rate (L/min) 100 Oxygen Delivery Method Mechanical Ventilator Weight: 122.2 kg Body Mass Index (BMI) 44.5 Intake & Output: Intake and Output for Last 24 Hours 07/28/21 07/29/21 07/30/21 23:59 23:59 23:59 Intake Total 746.24 / 2170.24 4148.50 / 4148.50 120 / 120 Output Total 445 / 695 4210 / 4210 55 / 55 Balance 301.24 / 1475.24 -61.50 / -61.50 65 / 65 Lab / Micro Data Attestation: I reviewed the patient's lab results. Result Diagrams: 07/30/21 03:30 07/30/21 03:30 Labs: Laboratory Results - last 24 hr 07/30/21 03:30: WBC 7.2, RBC 3.17 L, Hgb 9.2 L, Hct 28.7 L, MCV 90.5, MCH 29.0, MCHC 32.1, RDW Std Deviation 51.0 H, RDW Coeff of Tyrell 15.8 H, Plt Count 147 L, MPV 9.2, Immature Gran % (Auto) 2.200 H, Neut % (Auto) 77.7 H, Lymph % (Auto) 6.7 L, [place] % (Auto) 9.2, Eos % (Auto) 3.9, Baso % (Auto) 0.3, Absolute Neuts (auto) 5.6, Absolute Lymphs (auto) 0.48 L, Nucleated RBC % 0 07/30/21 03:30: Sodium 133 L, Potassium 3.1 L, Chloride 98, Carbon Dioxide 31.0, Anion Gap 4 L, BUN 28 H, Creatinine 1.05 H, Estim Creat Clear Calc 43.37, Est GFR (MDRD) Af Amer 68, Est GFR (MDRD) Non-Af 56 L, BUN/Creatinine Ratio 26.7 H, Glucose 103, Calcium 7.9 L Micro: Microbiology 07/18/21 11:20 Stool C. difficile DNA Amplification - Final 07/18/21 11:20 Stool Stool Occult Blood (ROSEMARIE) - Final Occult Blood Positive 07/11/21 15:00 Blood Culture (Wb) - Right Wrist Blood Culture - Final No growth in 5 days. 07/11/21 15:15 Blood Culture (Wb) - Right Hand Blood Culture - Final No growth in 5 days. 07/11/21 15:00 Urine Catheter - Richardson Urine Culture - Final Yeast, not Rosio albicans 07/11/21 15:25 Sputum, Induced/Lukens Gram Stain - Final 07/11/21 15:25 Sputum, Induced/Lukens Respiratory Culture - Final Coag Negative Staph 07/06/21 11:20 Sputum, Induced/Lukens Gram Stain - Final 07/06/21 11:20 Sputum, Induced/Lukens Respiratory Culture - Final Culture exhibits no growth. 06/28/21 12:01 Blood Culture (Wb) - Right Hand Blood Culture - Final No growth in 5 days. 06/28/21 11:52 Blood Culture (Wb) - Left Hand Blood Culture - Final No growth in 5 days. 06/26/21 20:35 Urine, Clean Catch Streptococcus pneumoniae Antigen (M - Final 06/26/21 20:35 Urine, Clean Catch Legionella Antigen - Final 06/28/21 16:50 Mucosa - Nasopharyngeal Influenza Types A,B Direct FA (ROSEMARIE) - Final Influenzae B 06/26/21 20:35 Urine, Clean Catch Urine Culture - Final Escherichia coli Physical Exam Const no apparent distress General Appearance: patient mechanically ventilated Nutritional Appearance: morbidly obese HEENT normocephalic and head/scalp atraumatic Eyes PERRL and conjunctivae normal Neck supple Neck Narrative: Tracheostomy site is C/D/I General: trachea midline Chest inspection of chest normal Resp Effort and Inspection: tachypneic Auscultation: diminished lung sounds; Negative for rales, rhonchi or wheezes Cardio regular rate, regular rhythm, S1 normal heart sound and S2 normal heart sound GI normal to inspection, nondistended, normoactive bowel sounds GI Narrative: PEG site intact. Extremity General Extremity: edema; Negative for clubbing Skin no rashes or lesions noted Neuro Sensorium / Orientation: sedated on vent Charges/Coding Procedures Hospitalists Procedures: [id number] Critial Care 1st Hr
[2021-07-30] MEDS: Calcium (Elemental) 500 MG Tablet GT (08:00)
[2021-07-30] MEDS: Ferrous Gluconate 324 MG Tablet PO (08:00)
[2021-07-30] MEDS: QUEtiapine 100 MG Tablet 200 MG PO (08:01)
[2021-07-30] MEDS: Aspirin 81 MG TAB.CHEW GT (08:01)
[2021-07-30] MEDS: Cholecalciferol (VIT D3) 25 MCG TABLET (1,000 UNITS) 50 MCG GT (08:01)
[2021-07-30] MEDS: Levothyroxine 88 MCG Tablet GT (08:01)
[2021-07-30] MEDS: rifAXIMin 550 MG Tablet GT (08:01)
[2021-07-30] MEDS: Ursodiol 250 MG Tablet GT (08:01)
[2021-07-30] MEDS: Polyethylene Glycol 3350 17 GM PACKET GT (08:02)
[2021-07-30] MEDS: Tacrolimus 0.5 MG Capsule GT (08:02)
[2021-07-30] MEDS: Chlorhexidine 15 ML PO (08:02)
[2021-07-30] MEDS: Menthol/Lanolin/Calamine/Znox 113 GM Tube 1 APPLIC TOPICAL (08:02)
[2021-07-30] MEDS: Tacrolimus Anhydrous 1 MG Capsule 2 MG GT (08:02)
--- NOTE | 2021-07-30 09:25 | CASEMGMT ---
Addendum entered by Marlene Reddy 07/30/21 11:39: Discharge instructions, summary, and medication orders faxed to [facility]. Addendum entered by Marlene Reddy 07/30/21 10:07: Dr Hess notified insurance approval obtained for LTAC. Original Note: EDWARD VILLATORO NOTE: Insurance approval obtained for pt to go to [facility]. Dr Akins notified. EDWARD VILLATORO spoke w/Alf @ [facility]. Per Alf, pt can transfer there any time today, as long as she arrives there by 5 PM. podiatric technicianAnnel, notified and will have transportation arranged. Alf requests updated MAR, VS's, and labs be faxed. This has been completed. Will fax discharge summary and instructions when available. Nurse to nurse report #: [phone] given to EDWARD Garrido. Call placed to pt's daughter, Negro, and she was notified insurance approval obtained and pt will be transferring to [facility] today. She requests she be called when pt leaves [facility]. Radhika LEON, made aware. Vasile CAMPBELL RN, CM
--- NOTE | 2021-07-30 09:50 | NURSING ---
Report called to Tc GARCIA RN.
--- NOTE | 2021-07-30 11:27 | TREXTCAR_ITS ---
Routine Orders/Code Status Enema Type: Fleetz Enema Frequency: Daily PRN Suppository Type: Dulcolax 10mg Suppository Frequency: Daily PRN Keep PO Greater than or Equal to (%): 90 Wound(s) cleft: Wound Type: Pressure Injury neck: Wound Type: Puncture Therapies Weight Bearing: Weight bearing as tolerated Physical Therapy: Eval and Treat Occupational Therapy: Eval and Treat Problem/Diagnosis (1) COVID-19: Status: Acute (2) Influenza B: Status: Acute Allergies/Procedures Done in Hospital Allergies amoxicillin Allergy (Verified 06/26/21 19:28) Hives Fish Containing Products Allergy (Verified 06/26/21 19:28) Rash Iodinated Contrast Media [Iodinated Contrast Media - IV Dye] Allergy (Verified 06/26/21 19:) Rash Penicillins [PCN] Allergy (Verified 06/26/21 19:) Hives Procedures: - (tracheostomy, PEG tube) Type of Care/Length of Stay Estimated LOS: More Than 30 Days Type of Care Needed: Skilled Rehab Potential: Poor Prognosis: Poor Additional Orders/Day of Discharge Day of Discharge: 07/30/21 Dietary and Speech Recommendations Dietitian Recommendations/Changes: NPO; Continue Nepro at goal rate of 45mL/hour w/ 125mL flush every 4 hours to provide 1912 calories, 87.5 g protein, and 1535mL fluid/day. As ordered, enteral nutrition meets 100% estimated calorie and 84% estimated protein needs/day. Discharge Plan Admission Admit Date/Time: 06/26/21 23:54 Primary Reason for Your Visit: acute hypoxic respiratory failure due to covid Attending Provider: Sujey Hess Primary Care Provider: Ayesha Vieyra Consulting Providers: Demarcus Huddleston ; Jonathan Akins ; Conner Garcia ; Mook Mccoy ; Lona Sampson Instructions Patient Instructions: ED CYSTITIS Female Adult Discharge Orders/Prescriptions Prescriptions: New nitrofurantoin monohyd/m-cryst [nitrofurantoin monohyd/m-cryst] 100 MG capsule 100 mg PO Q12 Qty: 14 RF: 0 Continued cyanocobalamin (vitamin B-12) [Vitamin B-12] 1,000 MCG tablet 50,000 mcg PO MOORE RF: 0 azathioprine 50 MG tablet 50 mg PO DAILY@0800 RF: 0 pantoprazole 40 MG tablet 40 mg PO DAILY RF: 0 zinc 50 MG tablet 50 mg PO DAILY RF: 0 albuterol sulfate [Ventolin HFA] 1 INHALER inhaler 2 puff inhalation Q6H PRN PRN (Reason: Sob &/Or Wheezing) RF: 0 ondansetron 4 MG tablet 8 mg PO Q8H PRN PRN (Reason: Nausea/Vomiting) RF: 0 calcium-vitamin D3-vitamin K [Citracal-D3 Soft Chew] 1 EACH tablet,chewable 1 ea PO DAILY RF: 0 melatonin 3 MG tablet 3 mg PO QHS RF: 0 furosemide 40 MG tablet 20 mg PO QODAY RF: 0 tramadol 50 MG tablet 50 mg PO BID PRN PRN (Reason: Pain) RF: 0 ascorbic acid (vitamin C) [Vitamin C] 500 MG tablet 500 mg PO BIDCM RF: 0 ferrous gluconate 325 MG tablet 325 mg PO BIDCM RF: 0 calcium carbonate 500 MG tablet 500 mg PO BID RF: 0 cholecalciferol (vitamin D3) [Vitamin D3] 2,000 UNIT capsule 2,000 unit PO DAILY RF: 0 Xifaxan 550 MG tablet 550 mg PO BID RF: 0 lactulose 20 GM/30 ML solution 60 ml PO BID Qty: 0 RF: 0 mycophenolate mofetil 250 MG capsule 250 mg PO BID RF: 0 prednisone 5 MG tablet 5 mg PO DAILY RF: 0 sulfamethoxazole-trimethoprim 1 EACH tablet 1 ea PO MOWEFR RF: 0 aspirin 81 MG tablet,delayed release (DR/EC) 81 mg PO DAILY RF: 0 simvastatin 20 MG tablet 20 mg PO QHS RF: 0 ursodiol 250 MG tablet 250 mg PO BID RF: 0 tacrolimus 1 MG capsule 2 mg PO Q12H RF: 0 tacrolimus 0.5 MG capsule 0.5 mg PO Q12H RF: 0 ondansetron 4 MG tablet 4 mg PO Q8H PRN PRN (Reason: Nausea) Qty: 7 RF: 0 levothyroxine 88 mcg tablet 88 mcg PO DAILY RF: 0 potassium chloride 10 mEq Tablet Extended Release 10 meq PO QODAY RF: 0 Referrals / Follow Up: Ayesha Vieyra MD [Primary Care Provider] - 3-5 Days Disposition Disposition (needs filled in before D/C Order can be placed): Care Home Acute Care
--- NOTE | 2021-07-30 11:29 | DS.PCM_ITS ---
Providers Date of Admission: 06/26/21 Primary Care Physician: Dr. Ayesha Vieyra MD Consultations 06/30/21 08:43 Consult: Plant And Instrument Engineer / Pulmonary Medicine Routine Consulting Provider: Jonathan Akins Reason for Consult: COVID,RESP FAILURE EMERGENT Consult: No Notified: Yes Date Notified: 06/30/21 Time Notified: 08:43 Method of Notification: Verbal Comments:: PER DR. MARTIN HE ALREADY TALKED WITH HIM 06/30/21 09:01 Consult: Infectious Disease Routine Consulting Provider: Demarcus Huddleston Reason for Consult: COVID, RESP FAILURE EMERGENT Consult: No Notified: Yes Date Notified: 06/30/21 Time Notified: 09:01 Method of Notification: Text 07/07/21 06:34 Consult: Nephrology Routine Consulting Provider: Conner Garcia Reason for Consult: Renal failure s/p liver transplant - COVID/Flu EMERGENT Consult: No Notified: Yes Date Notified: 07/07/21 Time Notified: 08:30 Method of Notification: Answering Service 07/07/21 15:20 Consult: Gastroenterology Routine Consulting Provider: [facility] Reason for Consult: H/O Autoimmune hepatitis status post liver transplant EMERGENT Consult: No Notified: Yes Date Notified: 07/07/21 Time Notified: 15:27 Method of Notification: Answering Service 07/17/21 09:55 Consult: ENT Routine Consulting Provider: Mook Mccoy Reason for Consult: Tracheostomy EMERGENT Consult: No Notified: Yes Date Notified: 07/17/21 Time Notified: 09:55 Method of Notification: Verbal Method of Consult:: In-Person 07/19/21 07:38 Consult: General Surgery Routine Consulting Provider: Lona Sampson Reason for Consult: PEG placement EMERGENT Consult: No Notified: Yes Date Notified: 07/19/21 Time Notified: 09:54 Method of Notification: Page Reason For Visit: ACUTE HYPOXEMIC RESPIRATORY FAILURE Diagnosis Discharge Diagnosis (1) COVID-19: Status: Acute Code(s): U07.1 - COVID-19 (2) Influenza B: Status: Acute Code(s): J10.1 - Influenza due to other identified influenza virus with other respiratory manifestations Medications at Discharge Home Medications albuterol sulfate [Ventolin HFA] 2 puff INHALATION Q6H PRN PRN 01/16/17 azathioprine 50 mg PO DAILY@0800 06/21/16 calcium-vitamin D3-vitamin K [Citracal-D3 Soft Chew] 1 ea PO DAILY 06/21/16 cyanocobalamin (vitamin B-12) [Vitamin B-12] 50,000 mcg PO MOORE 06/21/16 ondansetron 8 mg PO Q8H PRN PRN 06/21/16 pantoprazole 40 mg PO DAILY 06/21/16 zinc 50 mg PO DAILY 06/21/16 melatonin 3 mg PO QHS 09/04/16 furosemide 20 mg PO QODAY 11/02/16 tramadol 50 mg PO BID PRN PRN 02/14/17 ascorbic acid (vitamin C) [Vitamin C] 500 mg PO BIDCM 07/12/17 ferrous gluconate 325 mg PO BIDCM 07/12/17 Xifaxan 550 mg PO BID 10/04/17 calcium carbonate 500 mg PO BID 10/04/17 cholecalciferol (vitamin D3) [Vitamin D3] 2,000 unit PO DAILY 10/04/17 lactulose 60 ml PO BID #0 10/07/17 aspirin 81 mg PO DAILY 08/19/19 mycophenolate mofetil 250 mg PO BID 08/19/19 ondansetron 4 mg PO Q8H PRN PRN #7 tab 08/19/19 prednisone 5 mg PO DAILY 08/19/19 simvastatin 20 mg PO QHS 08/19/19 sulfamethoxazole-trimethoprim 1 ea PO MOWEFR 08/19/19 tacrolimus 0.5 mg PO Q12H 08/19/19 tacrolimus 2 mg PO Q12H 08/19/19 ursodiol 250 mg PO BID 08/19/19 levothyroxine 88 mcg PO DAILY 06/26/21 nitrofurantoin monohyd/m-cryst 100 mg PO Q12 #14 capsule 06/26/21 potassium chloride 10 meq PO QODAY 07/03/21 Hospital Course Operations None Procedures None Summary of Care Provided Minutes Spent on Discharge: 45 Hospital Course: Patient is a 61 y/o female with a PMH as outlined who was admitted via the EDn with a complaint of nausea and vomiting for 3 weeks, with associated diffuse abdominal pain. SYmptoms worsening so she came into the ED. She had also had associated diarrhea. On arrival in the ED, UA was abnormal so she was diagnosed with a UTI. She was also hypoxic in the ED with a saturation dropping to 83% which was placed on 3 L of oxygen. Plan initially was to disch arge her from the ED but she desaturated to the 70s when oxygen was taken off and a chest x-ray done showed bilateral pulmonary infiltrates. Covid test done was positive. She was admitted and managed for acute hypoxic respiratory failure due to COVID-19 infection. 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 She was started on IV ceftriaxone and Flagyl. Hospital course was complicated by OPAL and rapid influenza screen was also positive. Patient completed a course of Tamiflu as well as Decadron. She was also placed on antimicrobials and ID was consulted. OPAL was refractory to treatment and she required dialysis. Patient had a very prolonged and protracted hospital course and was admitted from 06/27/[address] to 07/30/2021. She completed a course of antimicrobials and Tamiflu as well as Decadron. She also had acute on chronic normocytic anemia and required a total of 4 units of packed red blood cells during this admission. She had a PEG tube placed and also had a tracheostomy tube placed as she could not be weaned off of oxygen and failed multiple spontaneous breathing trials. She was however eventually weaned off of sedatives. She was ultimately deemed as needing long- term acute care and was discharged to [facility] on 07/30/2021. Patient was seen and examined prior to discharge. She remained intubated. Unable to do review of systems. Physical Exam Const Constitutional Narrative: intubated, RASS score is 0; off sedatives General Appearance: intubated and patient mechanically ventilated Exam Limitations: altered mental status Nutritional Appearance: morbidly obese HEENT normocephalic, head/scalp atraumatic and moist oral mucous membranes Eyes PERRL, EOMs intact bilaterally and conjunctivae normal Eyes Narrative: No scleral icterus Neck no lymphadenopathy, supple and no JVD Neck Narrative: tracheostomy in place Resp Resp Narrative: has a trach in place, intubated via trach and on the ventilator. Sedated. RASS score is 0 Auscultation: diminished lung sounds; Negative for crackles, rales, rhonchi or wheezes Cardio regular rate, regular rhythm, S1 normal heart sound, S2 normal heart sound, no murmurs, no rub, no gallops, no clicks and no JVD GI normal to inspection, nondistended, normoactive bowel sounds, soft to palpation, non-tender and non-distended; Negative for hepatosplenomegaly GI Narrative: obese Extremity normal to inspection and no clubbing, cyanosis or edema Extremity Narrative: Skin no rashes or lesions noted, no wounds, skin turgor normal, no jaundice, no petechiae and no mottling Neuro oriented x3, moves all extremities and no focal motor deficits Neuro Narrative: Intubated, RASS score is 0. Sensorium / Orientation: sedated on vent Speech: speech normal Psych Psych Narrative: Appearance: intubated Weight / BMI Weight Weight: 269 lb 6.478 oz Body Mass Index (BMI) 44.5 ABG / Lab / Microbiology Data Result Diagrams: 07/30/21 03:30 07/30/21 03:30 Laboratory: Laboratory Results - last 24 hr 07/30/21 03:30: WBC 7.2, RBC 3.17 L, Hgb 9.2 L, Hct 28.7 L, MCV 90.5, MCH 29.0, MCHC 32.1, RDW Std Deviation 51.0 H, RDW Coeff of Tyrell 15.8 H, Plt Count 147 L, MPV 9.2, Immature Gran % (Auto) 2.200 H, Neut % (Auto) 77.7 H, Lymph % (Auto) 6.7 L, [place] % (Auto) 9.2, Eos % (Auto) 3.9, Baso % (Auto) 0.3, Absolute Neuts (auto) 5.6, Absolute Lymphs (auto) 0.48 L, Nucleated RBC % 0 07/30/21 03:30: Sodium 133 L, Potassium 3.1 L, Chloride 98, Carbon Dioxide 31.0, Anion Gap 4 L, BUN 28 H, Creatinine 1.05 H, Estim Creat Clear Calc 43.37, Est GFR (MDRD) Af Amer 68, Est GFR (MDRD) Non-Af 56 L, BUN/Creatinine Ratio 26.7 H, Glucose 103, Calcium 7.9 L Microbiology: Microbiology 07/18/21 11:20 Stool C. difficile DNA Amplification - Final 07/18/21 11:20 Stool Stool Occult Blood (ROSEMARIE) - Final Occult Blood Positive 07/11/21 15:00 Blood Culture (Wb) - Right Wrist Blood Culture - Final No growth in 5 days. 07/11/21 15:15 Blood Culture (Wb) - Right Hand Blood Culture - Final No growth in 5 days. 07/11/21 15:00 Urine Catheter - Richardson Urine Culture - Final Yeast, not Rosio albicans 07/11/21 15:25 Sputum, Induced/Lukens Gram Stain - Final 07/11/21 15:25 Sputum, Induced/Lukens Respiratory Culture - Final Coag Negative Staph 07/06/21 11:20 Sputum, Induced/Lukens Gram Stain - Final 07/06/21 11:20 Sputum, Induced/Lukens Respiratory Culture - Final Culture exhibits no growth. 06/28/21 12:01 Blood Culture (Wb) - Right Hand Blood Culture - Final No growth in 5 days. 06/28/21 11:52 Blood Culture (Wb) - Left Hand Blood Culture - Final No growth in 5 days. 06/26/21 20:35 Urine, Clean Catch Streptococcus pneumoniae Antigen (M - Final 06/26/21 20:35 Urine, Clean Catch Legionella Antigen - Final 06/28/21 16:50 Mucosa - Nasopharyngeal Influenza Types A,B Direct FA (RO[facility]ARIE) - Final Influenzae B 06/26/21 20:35 Urine, Clean Catch Urine Culture - Final Escherichia coli D/C Instructions Discharge Diet: - (tube feed) Meaningful Use Info Meaningful Use Diagnoses (Choose all that apply): None applicable Discharge Plan Admission Admit Date/Time: 06/26/21 23:54 Primary Reason for Your Visit: acute hypoxic respiratory failure due to covid Attending Provider: Sujey Hess Primary Care Provider: Ayesha Vieyra Consulting Providers: Demarcus Huddleston ; Jonathan Akins ; Conner Garcia ; Mook Mccoy ; Lona Sampson Instructions Patient Instructions: ED CYSTITIS Female Adult Discharge Orders/Prescriptions Prescriptions: New nitrofurantoin monohyd/m-cryst [nitrofurantoin monohyd/m-cryst] 100 MG capsule 100 mg PO Q12 Qty: 14 RF: 0 Continued cyanocobalamin (vitamin B-12) [Vitamin B-12] 1,000 MCG tablet 50,000 mcg PO MOORE RF: 0 azathioprine 50 MG tablet 50 mg PO DAILY@0800 RF: 0 pantoprazole 40 MG tablet 40 mg PO DAILY RF: 0 zinc 50 MG tablet 50 mg PO DAILY RF: 0 albuterol sulfate [Ventolin HFA] 1 INHALER inhaler 2 puff inhalation Q6H PRN PRN (Reason: Sob &/Or Wheezing) RF: 0 ondansetron 4 MG tablet 8 mg PO Q8H PRN PRN (Reason: Nausea/Vomiting) RF: 0 calcium-vitamin D3-vitamin K [Citracal-D3 Soft Chew] 1 EACH tablet,chewable 1 ea PO DAILY RF: 0 melatonin 3 MG tablet 3 mg PO QHS RF: 0 furosemide 40 MG tablet 20 mg PO QODAY RF: 0 tramadol 50 MG tablet 50 mg PO BID PRN PRN (Reason: Pain) RF: 0 ascorbic acid (vitamin C) [Vitamin C] 500 MG tablet 500 mg PO BIDCM RF: 0 ferrous gluconate 325 MG tablet 325 mg PO BIDCM RF: 0 calcium carbonate 500 MG tablet 500 mg PO BID RF: 0 cholecalciferol (vitamin D3) [Vitamin D3] 2,000 UNIT capsule 2,000 unit PO DAILY RF: 0 Xifaxan 550 MG tablet 550 mg PO BID RF: 0 lactulose 20 GM/30 ML solution 60 ml PO BID Qty: 0 RF: 0 mycophenolate mofetil 250 MG capsule 250 mg PO BID RF: 0 prednisone 5 MG tablet 5 mg PO DAILY RF: 0 sulfamethoxazole-trimethoprim 1 EACH tablet 1 ea PO MOWEFR RF: 0 aspirin 81 MG tablet,delayed release (DR/EC) 81 mg PO DAILY RF: 0 simvastatin 20 MG tablet 20 mg PO QHS RF: 0 ursodiol 250 MG tablet 250 mg PO BID RF: 0 tacrolimus 1 MG capsule 2 mg PO Q12H RF: 0 tacrolimus 0.5 MG capsule 0.5 mg PO Q12H RF: 0 ondansetron 4 MG tablet 4 mg PO Q8H PRN PRN (Reason: Nausea) Qty: 7 RF: 0 levothyroxine 88 mcg tablet 88 mcg PO DAILY RF: 0 potassium chloride 10 mEq Tablet Extended Release 10 meq PO QODAY RF: 0 Referrals / Follow Up: Ayesha Vieyra MD [Primary Care Provider] - 3-5 Days Disposition Disposition (needs filled in before D/C Order can be placed): Juvenile Detention Officer Acute Care Charges/Coding Visit Charges Inpatient E&M: [id number] Disch Hosp
== END 2021-07-30 11:02 | DRG 4 ==
LOC: ED 23:34 → MS3 06-27 00:08 → ICU 07-02 10:55
PROVIDERS: Family Medicine; Internal Medicine; Internal Medicine Critical Care Medicine; Internal Medicine Gastroenterology; Internal Medicine Infectious Disease; Internal Medicine Nephrology; Nurse Practitioner Adult Health; Otolaryngology; Surgery; Admitting Provider Hospitalist; Emergency Provider Emergency Medicine; PCP Internal Medicine; Visit Provider Student in an Organized Health Care Education/Training Program
PROC: 0DJ08ZZ Inspection of Upper Intestinal Tract, Via Natural or Artificial Opening Endoscopic (ICD-10-PCS; CPT 43235; principal; 2021-07-22 13:40)
PROC: 0B110F4 Bypass Trachea to Cutaneous with Tracheostomy Device, Open Approach (ICD-10-PCS; principal; 2021-07-23 11:45)
PROC: 02HV33Z Insertion of Infusion Device into Superior Vena Cava, Percutaneous Approach (ICD-10-PCS; principal; 2021-07-24 07:45)
DX: U07.1 COVID-19 (principal); N17.0 Acute kidney failure with tubular necrosis; R57.8 Other shock; J12.82 Pneumonia due to coronavirus disease 2019; A41.9 Sepsis, unspecified organism; J15.9 Unspecified bacterial pneumonia; J96.01 Acute respiratory failure with hypoxia; K29.71 Gastritis, unspecified, with bleeding; D84.9 Immunodeficiency, unspecified; E46 Unspecified protein-calorie malnutrition; B37.81 Candidal esophagitis; E27.40 Unspecified adrenocortical insufficiency; Z68.41 Body mass index [BMI] 40.0-44.9, adult; J95.01 Hemorrhage from tracheostomy stoma; Z94.4 Liver transplant status; E87.2 Acidosis; E87.1 Hypo-osmolality and hyponatremia; N39.0 Urinary tract infection, site not specified; D62 Acute posthemorrhagic anemia; K72.90 Hepatic failure, unspecified without coma; E66.01 Morbid (severe) obesity due to excess calories; Z99.2 Dependence on renal dialysis; K74.60 Unspecified cirrhosis of liver; N18.32 Chronic kidney disease, stage 3b; Z93.1 Gastrostomy status; K52.9 Noninfective gastroenteritis and colitis, unspecified; D63.1 Anemia in chronic kidney disease; E78.5 Hyperlipidemia, unspecified; E03.9 Hypothyroidism, unspecified; K21.9 Gastro-esophageal reflux disease without esophagitis; J45.909 Unspecified asthma, uncomplicated; F41.9 Anxiety disorder, unspecified; E87.5 Hyperkalemia; D50.0 Iron deficiency anemia secondary to blood loss (chronic); J10.1 Influenza due to other identified influenza virus with other respiratory manifestations; Z79.82 Long term (current) use of aspirin; Z87.891 Personal history of nicotine dependence; Z66 Do not resuscitate; Z79.01 Long term (current) use of anticoagulants; K66.0 Peritoneal adhesions (postprocedural) (postinfection); T38.0X5A Adverse effect of glucocorticoids and synthetic analogues, initial encounter; Z91.041 Radiographic dye allergy status
CPT/HCPCS: 31500; 31720; 36415; 36569; 36600; 71045; 76770; 77001; 80048; 80053; 80069; 80076; 80197; 80202; 81001; 82140; 82274; 82550; 82570; 82728; 82803; 82962; 82977; 83605; 83615; 83690; 83735; 83880; 84100; 84300; 84478; 84540; 85014; 85018; 85025; 85379; 85610; 85652; 85730; 86140; 86644; 86706; 86850; 86900; 86901; 86920; 86922; 87040; 87070; 87077; 87086; 87088; 87186; 87205; 87340; 87449; 87493; 87635; 87804; 88305; 88342; 90937; 93005; 94002; 94003; 94660; 94667; 94668; 94762; 97110; 97162; 97166; 97530; 97802; 97803; 99251; 99285; J2185; J2997; J7040; J7050; P9016; A4216; C1750; C1752; G0257; G0463; J0330; J1940; J2405; J3010; U0003; U0005